=== PATIENT | male | born 1955 | race Caucasian/White ===

== ENCOUNTER 2016-10-22 22:13 | Inpatient (IN) | payer MEDICARE ==
[2016-10-22] MEDS ORDERED: HYDROmorphone 1 MG/ML 1 ML SYRINGE IVP STA (22:53)
[2016-10-22] MEDS ORDERED: ONDANSETRON 4 MG/2 ML VIAL IVP STA (22:53)
[2016-10-22 23:23] LABS: Anisocytosis Slight; Basophils % (A) 1 %; CH 21.6; Eosinophils # (A) 0.4 k/uL (0-0.7); Eosinophils % (A) 6 %; HCT 34.8 % (39.0-53.0); HDW 3.43; HGB 10.7 gm/dL (13.0-17.5); Hypochromasia Marked; Luc # (Auto) 0.16; Luc % (Auto) 3; Lymphocytes # (A) 1.2 k/uL (1.0-4.8); Lymphocytes % (A) 20 %; MCH 21.6 pg (25.0-35.0); MCHC 30.8 g/dL (31.0-37.0); Mean Platelet Volume 7.1; Microcytosis Marked; Monocytes # (A) 0.4 k/uL (0-1.0); Monocytes % (A) 7 %; Neutrophils % (A) 64 %; Poikilocytosis Slight; RBC 4.98 m/uL (4.30-5.90); WBC 6.2 k/uL (3.8-10.6); WBC (Perox) 6.36
[2016-10-22 23:31] LABS: Calcium 9.1 mg/dL (8.4-10.2); Total Bilirubin 0.6 mg/dL (0.2-1.3)
[2016-10-22 23:48] LABS: Manual Review Performed; Ovalocytes Present; Target Cells Present
--- NOTE | 2016-10-22 23:48 | CT ---
History: Reason: abdominal pain Exam: CT ABDOMEN + PELVIS Without Contrast axial noncontrast images from the lung bases through the ischial tuberosities with multiplanar reformatted images Technique more: CTDI is 26.60 mGy and DLP is 1437.30 mGy-cm Technique more: This CT exam was performed using one or more of the following dose reduction techniques: automated exposure control, adjustment of the mA and/or kV according to patient size, and/or use of iterative reconstruction technique. Comparison: None available FINDINGS: Basilar atelectasis. Coronary calcifications and/or stents partially imaged. No evidence of pericardial or pleural effusion. Beam hardening artifact relating to partially imaged right hip replacement. The liver, adrenal glands, and abdominal aorta appear within limits on noncontrast imaging. Splenomegaly 17.4 cm. The gallbladder is contracted in appearance and not well evaluated. No bowel dilation or free air. Normal caliber appendix without secondary signs. The bladder is contracted in appearance and partially obscured by spray artifact. No definite evidence of free fluid seen. The prostate is not well seen. Bilateral renal cysts with renal atrophy and a couple of indeterminant renal areas. Bilateral nonacute L5 spondylolysis with grade 1 anterolisthesis and spondylosis/discogenic change. Multilevel Schmorl node deformities and spondylosis/discogenic change. IMPRESSION: The gallbladder is contracted in appearance and not well evaluated. Bilateral renal cysts with renal atrophy and a couple of indeterminant renal areas which may represent complex cysts or solid lesion not excluded. May consider follow-up with nonemergent multiphasic renal CT or MRI. Splenomegaly 17.4 cm. Basilar atelectasis. Coronary calcifications and/or stents partially imaged.
[2016-10-22 23:52] LABS: Potassium 7.3 mmol/L (3.5-5.1)
[2016-10-22] MEDS ORDERED: SODIUM POLYSTYRENE SULFONATE 15 GM/60 ML BOTTLE PO STA (23:57)
[2016-10-22] MEDS ORDERED: DEXTROSE 50%-WATER 50 ML SYRINGE IVP STA (23:57)
[2016-10-22] MEDS ORDERED: SODIUM BICARB 8.4% 50 ML SYR (1 MEQ/ML) IV STA (23:57)
[2016-10-22] MEDS ORDERED: CALCIUM GLUCONATE 1,000 MG in SODIUM CHLORIDE 0.9% 100 ML IVPB ONE (23:57)
[2016-10-22] MEDS ORDERED: INSULIN REGULAR 100 UNIT/ML VIAL IV STA (23:57)
[2016-10-23] MEDS ORDERED: NALOXONE 0.4 MG/ML 1 ML VIAL IV PRN (00:32)
[2016-10-23] MEDS ORDERED: HYDROmorphone 1 MG/ML 1 ML SYRINGE IV PRN (00:32)
[2016-10-23] MEDS ORDERED: ONDANSETRON 4 MG/2 ML VIAL IVP PRN (00:32)
[2016-10-23] MEDS ORDERED: ACETAMINOPHEN TAB 325 MG TAB PO PRN (00:32)
--- NOTE | 2016-10-23 00:32 | ED ---
Abdominal Pain HPI - General Chief Complaint: Abdominal Pain Stated Complaint: Abd Pain Time Seen by Provider: 10/22/16 22:26 Source: patient Mode of arrival: wheelchair Limitations: no limitations - History of Present Illness Initial Comments: This patient is a 61-year-old man who presents to be evaluated for abdominal pain that started coming on tonight after he had eaten dinner sometime around 6. The patient indicates the periumbilical area. He states the pain is cramping, constant, moderately severe. He has not noted any worsening or relieving factors. Pain is been coming by some nausea, but not any other symptoms. He has not noted any change in bowel movements though perhaps slightly smaller than usual. The patient has not noted any change in urination but states that he only urinates a small amount every day due to the renal failure. The patient had his last dialysis on Sunday and it was a normal session. He is due to have dialysis tomorrow morning. MD Complaint: abdominal pain -: hour(s) Location: periumbilical Radiation: none Migration to: no migration Severity: moderate Quality: cramping Consistency: constant Improves With: nothing Worsens With: nothing Associated Symptoms: nausea - Related Data Home Medications Medication Instructions Recorded Confirmed Aspirin [Adult Low Dose Aspirin EC] 81 mg PO DAILY 10/23/16 10/23/16 Atorvastatin [Lipitor] 10 mg PO HS 10/23/16 10/23/16 Calcium Acetate [Calcium Acetate] 667 mg PO DIRECTED 10/23/16 10/23/16 Ergocalciferol (Vitamin D2) 1.25 mg PO DIRECTED 10/23/16 10/23/16 [Vitamin D2] Famotidine [Pepcid] 20 mg PO DAILY 10/23/16 10/23/16 Furosemide [Furosemide] 40 mg PO BID 10/23/16 10/23/16 Hydrocodone/Acetaminophen 1 tab PO BID PRN 10/23/16 10/23/16 [Hydrocodon-Acetaminophn 10-325] Insulin Detemir [Levemir Flextouch] 15 unit SQ HS 10/23/16 10/23/16 Insulin Detemir [Levemir Flextouch] 20 unit SQ AC-BRKFST 10/23/16 10/23/16 Levothyroxine Sodium [Synthroid] 50 mcg PO BID 10/23/16 10/23/16 Levothyroxine Sodium [Synthroid] 300 mcg PO DAILY 10/23/16 10/23/16 Metoprolol Tartrate [Metoprolol 50 mg PO BID 10/23/16 10/23/16 Tartrate] Sodium Polystyrene Sulfonate [SPS] 30 gm PO DIRECTED 10/23/16 10/23/16 hydrALAZINE HCL 50 mg PO Q8H 10/23/16 10/23/16 Allergies Allergy/AdvReac Type Severity Reaction Status Date / Time No Known Allergies Allergy Verified 10/22/16 22:22 Review of Systems ROS Statement: Those systems with pertinent positive or pertinent negative responses have been documented in the HPI. ROS Other: All systems not noted in ROS Statement are negative. Constitutional: Denies: fever, chills Respiratory: Denies: cough, dyspnea Cardiovascular: Denies: chest pain, palpitations, edema, syncope Gastrointestinal: Reports: abdominal pain, nausea. Denies: vomiting, diarrhea, melena, hematochezia Genitourinary: Reports: as per HPI. Denies: testicular pain, testicular mass Musculoskeletal: Denies: back pain Skin: Denies: rash Neurological: Denies: headache, weakness, numbness Past Medical History Past Medical History: Heart Failure, Diabetes Mellitus, Hyperlipidemia, Hypertension, Renal Disease Additional Past Medical History / Comment(s): dailysis MWFr History of Any Multi-Drug Resistant Organisms: None Reported Past Surgical History: Heart Catheterization With Stent, Orthopedic Surgery Additional Past Surgical History / Comment(s): left ankle, right hip rx, plate in right knee, last heart cath 2008, left arm graph for dialysis Past Psychological History: No Psychological Hx Reported Smoking Status: Former smoker Past Alcohol Use History: None Reported Past Drug Use History: None Reported General Exam Limitations: no limitations General appearance: alert, in no apparent distress Head exam: Present: atraumatic, normocephalic Eye exam: Present: normal appearance. Absent: scleral icterus, conjunctival injection ENT exam: Present: normal oropharynx Neck exam: Present: normal inspection Respiratory exam: Present: normal lung sounds bilaterally. Absent: respiratory distress, wheezes, rales, rhonchi, stridor Cardiovascular Exam: Present: regular rate, normal rhythm, normal heart sounds. Absent: systolic murmur, diastolic murmur, rubs, gallop GI/Abdominal exam: Present: soft, tenderness (Mild tenderness diffusely without guarding or rebound), normal bowel sounds. Absent: distended, guarding, rebound , rigid, mass, pulsatile mass, hernia Extremities exam: Present: normal inspection, normal capillary refill. Absent: pedal edema, calf tenderness Back exam: Present: normal inspection. Absent: CVA tenderness (R), CVA tenderness (L) Neurological exam: Present: alert, normal gait Skin exam: Present: warm, dry, intact, normal color. Absent: rash Course Vital Signs 10/22/16 10/23/16 10/23/16 22:16 00:42 01:40 Temperature 97.4 F L 98.3 F Pulse Rate 80 82 Pulse Rate [ Bilateral Dorsalis Pedis] Pulse Rate [ Bilateral Radial] Respiratory 18 18 20 Rate Blood Pressure 164/75 151/82 Blood Pressure 142/73 [Right Arm] O2 Sat by Pulse 93 L 98 Oximetry 10/23/16 10/23/16 03:09 04:00 Temperature 98.0 F 98.7 F Pulse Rate 72 Pulse Rate [ 73 Bilateral Dorsalis Pedis] Pulse Rate [ 73 Bilateral Radial] Respiratory 18 18 Rate Blood Pressure 138/71 Blood Pressure 140/72 [Right Arm] O2 Sat by Pulse 97 98 Oximetry Medical Decision Making - Medical Decision Making Patient is a 61-year-old man who presents to be evaluated for abdominal pain. Patient is found to have hyperkalemia. Case is discussed with Dr. Horton, covering for his physician. Patient will be admitted and have dialysis. Patient is given the medications for hyperkalemia. His abdominal symptoms have improved in the emergency room. - Lab Data Result diagrams: 10/22/16 23:00 10/23/16 02:30 Lab Results 10/22/16 10/22/16 10/22/16 Range/Units 23:00 23:00 23:00 WBC 6.2 (3.8-10.6) k/uL RBC 4.98 (4.30-5.90) m/uL Hgb 10.7 L (13.0-17.5) gm/dL Hct 34.8 L (39.0-53.0) % MCV 70.0 L (80.0-100.0) fL MCH 21.6 L (25.0-35.0) pg MCHC 30.8 L (31.0-37.0) g/dL RDW 19.0 H (11.5-15.5) % Plt Count 89 L (150-450) k/uL Neutrophils % 64 % Lymphocytes % 20 % Monocytes % 7 % Eosinophils % 6 % Basophils % 1 % Neutrophils # 4.0 (1.3-7.7) k/uL Lymphocytes # 1.2 (1.0-4.8) k/uL Monocytes # 0.4 (0-1.0) k/uL Eosinophils # 0.4 (0-0.7) k/uL Basophils # 0.0 (0-0.2) k/uL Manual Slide Review Performed Hypochromasia Marked Poikilocytosis Slight Poikilocytosis (manual Present Anisocytosis Slight Anisocytosis (manual) Present Microcytosis Marked Target Cells Present Ovalocytes Present Sodium 133 L (137-145) mmol/L Potassium 7.3 H* (3.5-5.1) mmol/L Chloride 92 L (98-107) mmol/L Carbon Dioxide 26 (22-30) mmol/L Anion Gap 15 mmol/L BUN 77 H (9-20) mg/dL Creatinine 11.10 H* (0.66-1.25) mg/dL Est GFR (MDRD) Af Amer 6 (>60 ml/min/1.73 sqM) Est GFR (MDRD) Non-Af 5 (>60 ml/min/1.73 sqM) Glucose 210 H (74-99) mg/dL Plasma Lactic Acid Yonny 0.8 (0.7-2.0) mmol/L Calcium 9.1 (8.4-10.2) mg/dL Total Bilirubin 0.6 (0.2-1.3) mg/dL AST 16 L (17-59) U/L ALT 25 (21-72) U/L Alkaline Phosphatase 168 H (38-126) U/L Total Protein 6.0 L (6.3-8.2) g/dL Albumin 4.0 (3.5-5.0) g/dL Amylase 43 (30-110) U/L Lipase 53 (23-300) U/L - EKG Data -: EKG Interpreted by Pa EKG shows normal: sinus rhythm, axis (Left axis deviation), intervals (The QRS duration is slightly prolonged at 138 ms), QRS complexes (There is a nonspecific intraventricular conduction delay) Rate: normal (Rate 79 bpm) Interpretation: other (The patient's T waves have a borderline appearance for peaking) Critical Care Time Critical Care Time: Yes (35 minutes) Disposition Clinical Impression: Abdominal pain, Hyperkalemia Disposition: ADMITTED IP TO THIS HOSP Condition: Fair
[2016-10-23 01:09] LABS: Appearance,Urine Clear (Clear); Bilirubin,Urine Negative (Negative); Glucose,Urine (UA) 3+ (Negative); Ketones,Urine Negative (Negative); Leukocyte Esterase,Urine Negative (Negative); Nitrite,Urine Negative (Negative); PH, Urine 8.5 (5.0-8.0); Particle Count 140; Protein,Urine 1+ (Negative); RBC,Urine <1 /hpf (0-5); Specific Gravity,Urine 1.006 (1.001-1.035); UA Billing (MACRO vs. MICRO) MICRO; Urobilinogen,Urine <2.0 mg/dL (<2.0); WBC,Urine <1 /hpf (0-5)
[2016-10-23 03:27] LABS: Glucose,Whole Blood 193 mg/dL (75-99)
[2016-10-23 04:07] VITALS: BMI 41.3
[2016-10-23 05:01] LABS: Anisocytosis Slight; Basophils % (A) 1 %; CH 21.4; CHCM 30.6; Eosinophils # (A) 0.3 k/uL (0-0.7); Eosinophils % (A) 5 %; HCT 32.1 % (39.0-53.0); HDW 3.46; HGB 9.7 gm/dL (13.0-17.5); Hypochromasia Marked; Luc # (Auto) 0.17; Luc % (Auto) 4; Lymphocytes # (A) 1.1 k/uL (1.0-4.8); Lymphocytes % (A) 23 %; MCH 21.2 pg (25.0-35.0); MCHC 30.1 g/dL (31.0-37.0); MCV 70.4 fL (80.0-100.0); Mean Platelet Volume 6.9; Microcytosis Marked; Monocytes # (A) 0.3 k/uL (0-1.0); Monocytes % (A) 7 %; Neutrophils # (A) 2.8 k/uL (1.3-7.7); Neutrophils % (A) 60 %; Poikilocytosis Slight; RBC 4.56 m/uL (4.30-5.90); RDW 18.9 % (11.5-15.5); WBC 4.7 k/uL (3.8-10.6); WBC (Perox) 4.83
[2016-10-23 05:10] LABS: INR 1.2 (<1.1); Prothrombin Time 12.1 sec (9.0-12.0)
[2016-10-23 05:38] LABS: Calcium 8.7 mg/dL (8.4-10.2); Magnesium 1.8 mg/dL (1.6-2.3); Phosphorous 5.6 mg/dL (2.5-4.5); Total Bilirubin 0.8 mg/dL (0.2-1.3); Total Protein 5.6 g/dL (6.3-8.2)
[2016-10-23 05:50] LABS: Potassium 6.5 mmol/L (3.5-5.1)
[2016-10-23 07:24] LABS: Glucose,Whole Blood 240 mg/dL (75-99)
[2016-10-23] MEDS: INSULIN LISPRO (humaLOG) 300 UNIT/3 ML VIAL SQ SCH ×2 (08:30→12:17)
[2016-10-23 08:38] VITALS: TEMP 97.7
[2016-10-23] MEDS ORDERED: FAMOTIDINE 20 MG TAB PO SCH (09:00)
[2016-10-23] MEDS ORDERED: HYDROcodone/APAP 10-325MG 1 EACH TAB PO PRN (09:54)
[2016-10-23] MEDS ORDERED: ASPIRIN 81 MG CHEW PO SCH (10:00)
[2016-10-23] MEDS ORDERED: SODIUM POLYSTYRENE SULFONATE 30 GM/120 ML BOTTLE RECTAL SCH (10:00)
[2016-10-23] MEDS ORDERED: hydrALAZINE HCL 50 MG TAB PO SCH (10:00)
--- NOTE | 2016-10-23 10:14 | P.HPIM ---
History of Present Illness H&P Date: 10/23/16 Chief Complaint: Abdominal pain This is a 61-year-old male with a known history of diabetes mellitus type 2, chronic kidney disease on hemodialysis Sunday, congestive heart failure, hypertension, hyperlipidemia, anemia of chronic kidney disease and hypothyroidism. Patient presents to emergency room with complaints of abdominal cramping throughout his abdomen. Symptoms started around 6:00 last night. Patient reports that he went out to eat for breakfast had spinach omelette with hashbrowns. He had been doing well. And later in the evening 's his stomach cramping started. Patient also had about 4 stools which were diarrhea-like. No blood reported. There are brownish greenish in color. He did have some chills. Denies any fever. Denies any nausea or vomiting. Denies any other sick contacts. It has not been on antibiotics recently. Patient is computed tomography scan of the abdomen and pelvis showing gallbladder is contracted in appearance and not well evaluated. I lateral renal cysts with renal atrophy and a couple of in determinant renal areas which may represent complex cysts or solid lesion. Splenomegaly measuring 17.4 cm. Basilar atelectasis and coronary calcifications. Patient was found to have a potassium of 7.3 on admission. He does report eating potatoes during the day as well. Patient was given medications to adjust the potassium. Potassium is now at 6.5 any scheduled for hemodialysis today. Patient reports that he has been taking his medications and going to scheduled hemodialysis. Last hemodialysis was on Sunday. Patient denies any chest pain or shortness of breath. Denies a nausea vomiting. Denies any difficulty urinating. Hemoglobin is 9.7. He does get Procrit injections weekly for his anemia of chronic disease. Review of Systems Please refer to HPI otherwise unremarkable Past Medical History Past Medical History: Heart Failure, Diabetes Mellitus, Hyperlipidemia, Hypertension, Renal Disease Additional Past Medical History / Comment(s): dailysis MWFr History of Any Multi-Drug Resistant Organisms: None Reported Past Surgical History: Heart Catheterization With Stent, Orthopedic Surgery Additional Past Surgical History / Comment(s): left ankle, right hip rx, plate in right knee, last heart cath 2008, left arm graph for dialysis Date of Last Stent Placement:: 2008 Past Psychological History: No Psychological Hx Reported Smoking Status: Former smoker Past Alcohol Use History: None Reported Past Drug Use History: None Reported Medications and Allergies Home Medications Medication Instructions Recorded Confirmed Type Aspirin [Adult Low Dose Aspirin EC] 81 mg PO DAILY 10/23/16 10/23/16 History Atorvastatin [Lipitor] 10 mg PO HS 10/23/16 10/23/16 History Calcium Acetate [Calcium Acetate] 2,668 mg PO TID 10/23/16 10/23/16 History Ergocalciferol (Vitamin D2) 50,000 unit PO ESPARZA 10/23/16 10/23/16 History [Vitamin D2] Famotidine [Pepcid] 20 mg PO DAILY 10/23/16 10/23/16 History Furosemide [Furosemide] 40 mg PO BID 10/23/16 10/23/16 History Hydrocodone/Acetaminophen 1 tab PO BID PRN 10/23/16 10/23/16 History [Hydrocodon-Acetaminophn 10-325] Insulin Detemir [Levemir Flextouch] 15 unit SQ HS 10/23/16 10/23/16 History Insulin Detemir [Levemir Flextouch] 20 unit SQ AC-BRKFST 10/23/16 10/23/16 History Levothyroxine Sodium [Synthroid] 50 mcg PO BID 10/23/16 10/23/16 History Levothyroxine Sodium [Synthroid] 300 mcg PO DAILY 10/23/16 10/23/16 History Metoprolol Tartrate [Metoprolol 50 mg PO BID 10/23/16 10/23/16 History Tartrate] Sodium Polystyrene Sulfonate [SPS] 30 gm PO MOTH 10/23/16 10/23/16 History hydrALAZINE HCL 50 mg PO Q8H 10/23/16 10/23/16 History Allergies Allergy/AdvReac Type Severity Reaction Status Date / Time No Known Allergies Allergy Verified 10/23/16 07:53 Physical Exam Vitals: Vital Signs Temp Pulse Pulse Pulse Pulse Resp BP 10/23/16 08:00 97.7 F 71 16 10/23/16 04:00 98.7 F 73 73 18 10/23/16 03:09 98.0 F 72 18 138/71 10/23/16 01:40 98.3 F 20 10/23/16 00:42 82 18 151/82 BP Pulse Ox 10/23/16 08:00 161/82 95 10/23/16 04:00 140/72 98 10/23/16 03:09 97 10/23/16 01:40 142/73 10/23/16 00:42 98 Intake and Output 10/22/16 10/23/16 10/23/16 22:59 06:59 14:59 Intake Total 300 Output Total 50 50 Balance 250 -50 Intake: Intake, IV Titration 300 Amount Calcium Gluconate 1,000 300 mg In Sodium Chloride 0.9 % 100 ml @ 100 mls/hr IVPB ONCE ONE Rx#: [id number] Output: Urine 50 50 Other: Voiding Method Urinal Urinal # Emeses 0 Weight 119.8 kg Head normocephalic Neck supple Lungs clear to auscultation bilaterally no wheezing or crackles Heart regular rate and rhythm S1-S2, no rub or gallop Abdomen is soft nontender nondistended positive bowel sounds no hepatosplenomegaly Extremities no edema. Right great toe posterior aspect a large callus present. There is an open area that is now scabbed over and dry. No evidence of any pus or cellulitis. Some tenderness with palpation of the area. About 1 centimeter in size Neuro alert and orientated to 3 Results CBC & Chem 7: 10/23/16 04:22 10/23/16 04:22 Labs: Abnormal Lab Results - Last 24 Hours (Table) 10/23/16 10/23/16 10/23/16 Range/Units 00:44 02:30 03:25 Hgb (13.0-17.5) gm/dL Hct (39.0-53.0) % MCV (80.0-100.0) fL MCH (25.0-35.0) pg MCHC (31.0-37.0) g/dL RDW (11.5-15.5) % Plt Count (150-450) k/uL PT (9.0-12.0) sec Sodium (137-145) mmol/L Potassium 7.1 H* (3.5-5.1) mmol/L Chloride (98-107) mmol/L BUN (9-20) mg/dL Creatinine (0.66-1.25) mg/dL Glucose (74-99) mg/dL POC Glucose (mg/dL) 193 H (75-99) mg/dL Phosphorus (2.5-4.5) mg/dL AST (17-59) U/L Alkaline Phosphatase (38-126) U/L Total Protein (6.3-8.2) g/dL Albumin (3.5-5.0) g/dL Urine pH 8.5 H (5.0-8.0) Urine Protein 1+ H (Negative) Urine Glucose (UA) 3+ H (Negative) 10/23/16 10/23/16 10/23/16 Range/Units 04:22 04:22 04:22 Hgb 9.7 L (13.0-17.5) gm/dL Hct 32.1 L (39.0-53.0) % MCV 70.4 L (80.0-100.0) fL MCH 21.2 L (25.0-35.0) pg MCHC 30.1 L (31.0-37.0) g/dL RDW 18.9 H (11.5-15.5) % Plt Count 79 L (150-450) k/uL PT 12.1 H (9.0-12.0) sec Sodium 135 L (137-145) mmol/L Potassium 6.5 H* (3.5-5.1) mmol/L Chloride 94 L (98-107) mmol/L BUN 84 H* (9-20) mg/dL Creatinine 11.14 H* (0.66-1.25) mg/dL Glucose 196 H (74-99) mg/dL POC Glucose (mg/dL) (75-99) mg/dL Phosphorus 5.6 H (2.5-4.5) mg/dL AST 12 L (17-59) U/L Alkaline Phosphatase 134 H (38-126) U/L Total Protein 5.6 L (6.3-8.2) g/dL Albumin 3.4 L (3.5-5.0) g/dL Urine pH (5.0-8.0) Urine Protein (Negative) Urine Glucose (UA) (Negative) 10/23/16 Range/Units 07:22 Hgb (13.0-17.5) gm/dL Hct (39.0-53.0) % MCV (80.0-100.0) fL MCH (25.0-35.0) pg MCHC (31.0-37.0) g/dL RDW (11.5-15.5) % Plt Count (150-450) k/uL PT (9.0-12.0) sec Sodium (137-145) mmol/L Potassium (3.5-5.1) mmol/L Chloride (98-107) mmol/L BUN (9-20) mg/dL Creatinine (0.66-1.25) mg/dL Glucose (74-99) mg/dL POC Glucose (mg/dL) 240 H (75-99) mg/dL Phosphorus (2.5-4.5) mg/dL AST (17-59) U/L Alkaline Phosphatase (38-126) U/L Total Protein (6.3-8.2) g/dL Albumin (3.5-5.0) g/dL Urine pH (5.0-8.0) Urine Protein (Negative) Urine Glucose (UA) (Negative) Thrombosis Risk Factor Assmnt - Choose All That Apply Any of the Below Risk Factors Present?: Yes Each Factor Represents 1 point: Medical pt on bed rest Other Risk Factors: Yes Each Risk Factor Represents 2 Points: Age 61-74 years, Patient confined to bed Other congenital or acquired thrombophilia - If yes, enter type in comment: No Thrombosis Risk Factor Assessment Total Risk Factor Score: 5 Thrombosis Risk Factor Assessment Level: High Risk Assessment and Plan Plan: 1. Abdominal pain with diarrhea: Exact etiology unclear. Possible secondary to a viral gastroenteritis versus food poisoning. Computed tomography scan of the abdomen and pelvis did reveal contracted gallbladder and renal cysts. Check stool for C. diff. Continue with Zofran if needed. Continue Pepcid 2. Hyperkalemia: Patient's been given Kayexalate, calcium gluconate, insulin help correct the hyperkalemia. As well as he is receiving hemodialysis this morning. Patient did eat potatoes 2 times yesterday which may contribute to some of his hyperkalemia. Nephrology has been consulted. EKG shows a normal sinus rhythm and nonspecific intraventricular block. Continue telemetry monitoring. Patient currently in ICU as a selective overflow 3. Chronic kidney disease, stage 5. Hemodialysis dependent. Patient receiving hemodialysis this morning. Nephrology has been consulted. 4. Hyperphosphatemia: Resume patient's PhosLo. Continue dialysis. 5. Diabetes mellitus type 2: Resume patient's insulin. Continue sliding scale coverage. Hemoglobin A1c pending. 6. Essential hypertension: Resume blood pressure medications. Metoprolol and hydralazine 7. Anemia of chronic kidney disease: Hemoglobin 9.7. On Procrit injections weekly. Last colonoscopy 1 year ago which was normal 8. Hyperlipidemia: Resume statin 9. Hypothyroidism resume Synthroid 10. Right great toe callus and ulcer. Area is scabbed over. No evidence of drainage or infection. 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 11. Thrombocytopenia: Platelets are 79. CAT scan showing enlarged spleen. Continue to monitor. GI prophylaxis Pepcid and DVT prophylaxis SCDs Time with Patient: Greater than 30 (Greater than 50% of the total time spent in counseling and coordination of care.I performed an examination of the patient and discussed their management with the physician [employer]. I have reviewed the Physician [employer]'s notes and agree with the documented findings and plan of care)
[2016-10-23 11:07] VITALS: BP 127/70; PULSE 83; RESP 19
[2016-10-23 12:12] LABS: Glucose,Whole Blood 132 mg/dL (75-99)
[2016-10-23 12:16] LABS: Hemoglobin A1C 9.5 % (4.2-6.1)
[2016-10-23] MEDS ORDERED: CALCIUM ACETATE 667 MG CAP PO SCH (12:30)
[2016-10-23] MEDS ORDERED: INSULIN LISPRO (humaLOG) 300 UNIT/3 ML VIAL SQ SCH (12:30)
--- NOTE | 2016-10-23 13:04 | P.DS ---
Providers Date of admission: 10/23/16 00:36 Expected date of discharge: 10/23/16 Attending physician: Shaheen Forte Consults: Dr. Langford Primary care physician: Jazmin Castaneda [facility] Course: Discharge diagnosis 1. Abdominal pain with diarrhea: Exact etiology unclear. Possible secondary to gastroenteritis from food poisoning. Computed tomography scan of the abdomen and pelvis did reveal contracted gallbladder and renal cysts. 2. Hyperkalemia: Patient's been given Kayexalate, calcium gluconate, insulin help correct the hyperkalemia. As well as he is receiving hemodialysis this morning. Patient did eat potatoes 2 times yesterday which may contribute to some of his hyperkalemia. Nephrology has been consulted. EKG shows a normal sinus rhythm and nonspecific intraventricular block. Continue telemetry monitoring. Patient currently in ICU as a selective overflow 3. Chronic kidney disease, stage 5. Hemodialysis dependent. Patient receiving hemodialysis this morning. Nephrology has been consulted. 4. Hyperphosphatemia: Resume patient's PhosLo. Continue dialysis. 5. Diabetes mellitus type 2: Resume patient's insulin. Continue sliding scale coverage. Hemoglobin A1c pending. 6. Essential hypertension: Resume blood pressure medications. Metoprolol and hydralazine 7. Anemia of chronic kidney disease: Hemoglobin 9.7. On Procrit injections weekly. Last colonoscopy 1 year ago which was normal 8. Hyperlipidemia: Resume statin 9. Hypothyroidism resume Synthroid 10. Right great toe callus and ulcer. Area is scabbed over. No evidence of drainage or infection. Patient is to follow up with his braille proofreader tomorrow. 11. Thrombocytopenia: Platelets are 79. CAT scan showing enlarged spleen. Repeat CBC on Sunday. We'll have patient follow-up with hematology in the outpatient setting in 2 weeks Hospital course This is a 61-year-old male with a known history of diabetes mellitus type 2, chronic kidney disease on hemodialysis Sunday, congestive heart failure, hypertension, hyperlipidemia, anemia of chronic kidney disease and hypothyroidism. Patient presents to emergency room with complaints of abdominal cramping throughout his abdomen. Symptoms started around 6:00 last night. Patient reports that he went out to eat for breakfast had spinach omelette with hashbrowns. He had been doing well. And later in the evening 's his stomach cramping started. Patient also had about 4 stools which were diarrhea-like. No blood reported. There are brownish greenish in color. He did have some chills. Denies any fever. Denies any nausea or vomiting. Denies any other sick contacts. It has not been on antibiotics recently. Patient is computed tomography scan of the abdomen and pelvis showing gallbladder is contracted in appearance and not well evaluated. I lateral renal cysts with renal atrophy and a couple of in determinant renal areas which may represent complex cysts or solid lesion. Splenomegaly measuring 17.4 cm. Basilar atelectasis and coronary calcifications. Patient was found to have a potassium of 7.3 on admission. He does report eating potatoes during the day as well. Patient was given medications to adjust the potassium. Potassium is now at 6.5 any scheduled for hemodialysis today. Patient reports that he has been taking his medications and going to scheduled hemodialysis. Last hemodialysis was on Sunday. Likely patient's symptoms were possibly due to food poisoning. His abdominal pain and diarrhea have now resolved. Potassium will be corrected with dialysis. Recommend repeating a CBC and BMP on Sunday with dialysis. Patient was seen by nephrology during this admission. He received dialysis this morning. He has a right great toe callus in which she will be following up with the braille proofreader tomorrow. Patient is medically stable for discharge. Also note patient was noted have some thrombocytopenia with a platelet count of 79. His CAT scan is showing splenomegaly with a measuring 17.4 cm. We'll patient evaluated by hematology in the outpatient setting. Patient is eager for discharge to follow up with his braille proofreader tomorrow. Patient is stable for discharge. Please refer to chart for any further details. Patient Condition at Discharge: Stable Plan - Discharge Summary Discharge Medication List Aspirin [Adult Low Dose Aspirin EC] 81 mg PO DAILY 10/23/16 [History] Atorvastatin [Lipitor] 10 mg PO HS 10/23/16 [History] Calcium Acetate 2,668 mg PO TID 10/23/16 [History] Ergocalciferol (Vitamin D2) [Vitamin D2] 50,000 unit PO ESPARZA 10/23/16 [History] Famotidine [Pepcid] 20 mg PO DAILY 10/23/16 [History] Furosemide 40 mg PO BID 10/23/16 [History] Hydrocodone/Acetaminophen [Hydrocodon-Acetaminophn 10-325] 1 tab PO BID PRN 05/01 [History] Insulin Detemir [Levemir Flextouch] 15 unit SQ HS 10/23/16 [History] Insulin Detemir [Levemir Flextouch] 20 unit SQ AC-BRKFST 10/23/16 [History] Levothyroxine Sodium [Synthroid] 50 mcg PO BID 10/23/16 [History] Levothyroxine Sodium [Synthroid] 300 mcg PO DAILY 10/23/16 [History] Metoprolol Tartrate 50 mg PO BID 10/23/16 [History] Sodium Polystyrene Sulfonate [SPS] 30 gm PO MOTH 10/23/16 [History] hydrALAZINE HCL 50 mg PO Q8H 10/23/16 [History] Follow up Appointment(s)/Referral(s): Jazmin Castaneda MD [Primary Care Provider] - 1 Week Juan Clayton MD [STAFF PHYSICIAN] - 2 Weeks Activity/Diet/Wound Care/Special Instructions: Diet: cardiac, renal , diabetic Activity: as tolerated check CBC, BMP on sunday Discharge Disposition: HOME SELF-CARE
--- NOTE | 2016-10-23 15:10 | CONS ---
DATE OF CONSULTATION: REASON FOR CONSULTATION: End stage renal disease. HISTORY OF PRESENT ILLNESS: Patient is a 61-year-old male with a history of end-stage renal disease on hemodialysis on a Sunday, Sunday, Sunday schedule. He was admitted to the hospital with complaints of not feeling well. He had some abdominal pain and stated he had some diarrhea as well. Prior to admission he had eaten outside at a restaurant prior to these symptoms. The patient normally does have issues with hyperkalemia as outpatient. He was admitted with a potassium of 7.3. CAT scan of the abdomen showed no significant findings except for basilar atelectasis, coronary calcifications and splenomegaly was noted. Currently, patient is being dialyzed. He states he is feeling better. He denies any pain in his abdomen and denies any chest pains or shortness of breath. PAST MEDICAL HISTORY: End-stage renal disease, hypertension, type 2 diabetes, coronary artery disease, osteoarthritis. PAST SURGICAL HISTORY: 1. Cardiac catheterization. 2. AV fistula. 3. Ankle and hip surgery. 4. Knee surgery. SOCIAL HISTORY: The patient is an ex-smoker. No history of drug abuse or alcohol abuse. Medications at home included: 1. Lipitor. 2. Aspirin. 3. Phoslo. 4. Vitamin D2. 5. Lasix. 6. Pepcid. 7. Synthroid. 8. Insulin. 9. Metoprolol. 10. Kayexalate. ALLERGIES: None. On examination, the patient is comfortable, awake, alert, oriented x3. He is not in any acute distress. Blood pressure is 127/70, heart rate 71 per minute. He is afebrile. Examination of the heart S1 and S2. Examination of the lungs: Bilateral breath sounds are heard. Decreased breath sounds in bases. ABDOMEN: Soft, obese, nontender. Examination of lower extremities shows chronic skin changes. No significant edema is noted. Labs show sodium of 135, potassium 6.5, hemoglobin 9.7 g/dL. ASSESSMENT: 1. End-stage renal disease on hemodialysis on a Sunday, Sunday, Sunday schedule. Currently patient is being dialyzed. 2. The hyperkalemia at the time of admission expect improvement with dialysis. 3. Fluid overload, expect improvement post dialysis. 4. Gastroenteritis seems to have improved, possibly some underlying food poisoning. 5. Anemia of chronic disease. 6. Chronic kidney disease bone mineral disorder. PLAN: Hemodialysis today. Patient can be discharged post dialysis. Will follow up as outpatient on Sunday. He is advised to take his Kayexalate regularly. Thank you for this consultation.
[2016-10-23] MEDS ORDERED: FUROSEMIDE 40 MG TAB PO SCH (16:00)
[2016-10-23] MEDS ORDERED: LEVOTHYROXINE 50 MCG TAB PO SCH (21:00)
[2016-10-23] MEDS ORDERED: HEPARIN SODIUM,PORCINE 5,000 UNIT/ML 1 ML VIAL SQ SCH (21:00)
[2016-10-23] MEDS ORDERED: METOPROLOL TARTRATE 50 MG TAB PO SCH (21:00)
[2016-10-23] MEDS ORDERED: ATORVASTATIN 10 MG TAB PO SCH (21:00)
[2016-10-23] MEDS ORDERED: INSULIN DETEMIR 100 UNIT/ML 10 ML VIAL SQ SCH (21:00)
[2016-10-24] MEDS ORDERED: LEVOTHYROXINE 100 MCG TAB PO SCH (06:30)
[2016-10-24] MEDS ORDERED: INSULIN DETEMIR 100 UNIT/ML 10 ML VIAL SQ SCH (07:30)
[2016-10-24] MEDS ORDERED: FAMOTIDINE 20 MG TAB PO SCH (09:00)
[2016-10-29] MEDS ORDERED: ERGOCALCIFEROL 50,000 UNIT CAP PO SCH (09:54)
== END 2016-10-23 14:25 | disposition home or self-care (01) | DRG 641 ==
LOC: EC 22:13 → 6SEL 10-23 00:36 → 6ICU 10-23 03:07
PROVIDERS: ADMIT Internal Medicine; ATTEND Internal Medicine
PROC: 5A1D00Z (ICD-10-PCS; principal; 2016-10-23)
DX: E87.5 Hyperkalemia (principal); I13.2 Hypertensive heart and chronic kidney disease with heart failure and with stage 5 chronic kidney disease, or end stage renal disease; N18.5 Chronic kidney disease, stage 5; J98.11 Atelectasis; E11.22 Type 2 diabetes mellitus with diabetic chronic kidney disease; D69.6 Thrombocytopenia, unspecified; E83.39 Other disorders of phosphorus metabolism; A05.9 Bacterial foodborne intoxication, unspecified; E87.70 Fluid overload, unspecified; N28.1 Cyst of kidney, acquired; R16.1 Splenomegaly, not elsewhere classified; D63.1 Anemia in chronic kidney disease; E03.9 Hypothyroidism, unspecified; E78.5 Hyperlipidemia, unspecified; I25.10 Atherosclerotic heart disease of native coronary artery without angina pectoris; I45.4 Nonspecific intraventricular block; I50.9 Heart failure, unspecified; M19.90 Unspecified osteoarthritis, unspecified site; Z99.2 Dependence on renal dialysis; Z79.4 Long term (current) use of insulin; Z79.82 Long term (current) use of aspirin; Z79.899 Other long term (current) drug therapy; Z87.891 Personal history of nicotine dependence; Z95.5 Presence of coronary angioplasty implant and graft
CPT/HCPCS: 36415; 74176; 80053; 81001; 82150; 83036; 83605; 83690; 83735; 84100; 84132; 85025; 85610; 85730; 90935; 93005; 96365; 96375; 99291

== ENCOUNTER 2016-10-23 16:23 | Inpatient (IN) | payer MEDICARE ==
[2016-10-23] MEDS ORDERED: ONDANSETRON 4 MG/2 ML VIAL IVP STA (18:30)
[2016-10-23] MEDS ORDERED: DICYCLOMINE 10 MG/ML 2 ML AMP IM STA (18:30)
[2016-10-23] MEDS ORDERED: SODIUM CHLORIDE 0.9% 1,000 ML IV STA (18:30)
--- NOTE | 2016-10-23 18:35 | ED ---
Nausea/Vomiting/Diarrhea HPI <ManuelHarsha - Last Filed: 10/23/16 19:30> - General Source: patient, RN notes reviewed Mode of arrival: ambulatory <Jaylene Andersen - Last Filed: 10/23/16 19:36> - General Chief complaint: Nausea/Vomiting/Diarrhea Stated complaint: Nausea Time Seen by Provider: 10/23/16 18:20 - History of Present Illness Initial comments: 61-year-old male presents to the emergency department with a chief complaint of nausea and vomiting. Patient states he was seen here yesterday he was admitted overnight he had dialysis went home this morning. Patient states that he started to feel better and his nausea had improved. Patient states that his abdominal pain has resolved as well as the diarrhea may continues to nausea he had an episode of vomiting 3 thought that he should be seen. Patient states that he hasn't had any fever chills with this no cough cold runny nose. Patient states he is concerned because his abdomen doesn't have pain but still has the cramping like sensation and he still has the nausea with vomiting. No one else in the house is sick. He wanted to make sure that everything was okay. Patient denies any recent fever, chills, shortness of breath, chest pain, back pain, numbness or tingling, dysuria or hematuria, constipation or diarrhea, headaches or visual changes, or any other current symptoms. (Jaylene Andersen) - Related Data Home Medications Medication Instructions Recorded Confirmed Aspirin [Adult Low Dose Aspirin EC] 81 mg PO DAILY 10/23/16 10/23/16 Atorvastatin [Lipitor] 10 mg PO HS 10/23/16 10/23/16 Calcium Acetate 2,668 mg PO TID-W/MEALS 10/23/16 10/23/16 Ergocalciferol (Vitamin D2) 50,000 unit PO ESPARZA 10/23/16 10/23/16 [Vitamin D2] Famotidine [Pepcid] 20 mg PO DAILY 10/23/16 10/23/16 Furosemide 40 mg PO BID 10/23/16 10/23/16 Hydrocodone/Acetaminophen 1 tab PO BID PRN 10/23/16 10/23/16 [Hydrocodon-Acetaminophn 10-325] Insulin Detemir [Levemir Flextouch] 15 unit SQ HS 10/23/16 10/23/16 Insulin Detemir [Levemir Flextouch] 20 unit SQ AC-BRKFST 10/23/16 10/23/16 Levothyroxine Sodium [Synthroid] 50 mcg PO BID 10/23/16 10/23/16 Levothyroxine Sodium [Synthroid] 300 mcg PO DAILY 10/23/16 10/23/16 Metoprolol Tartrate 50 mg PO BID 10/23/16 10/23/16 Sodium Polystyrene Sulfonate [SPS] 30 gm PO MOTH 10/23/16 10/23/16 hydrALAZINE HCL 50 mg PO Q8H 10/23/16 10/23/16 Allergies Allergy/AdvReac Type Severity Reaction Status Date / Time No Known Allergies Allergy Verified 10/23/16 17:03 Review of Systems ROS Other: All systems not noted in ROS Statement are negative. <Harsha Jackson - Last Filed: 10/23/16 19:30> ROS Other: All systems not noted in ROS Statement are negative. <Jaylene Andersen - Last Filed: 10/23/16 19:36> ROS Statement: Those systems with pertinent positive or pertinent negative responses have been documented in the HPI. Past Medical History Past Medical History: Heart Failure, Diabetes Mellitus, Hyperlipidemia, Hypertension, Renal Disease Additional Past Medical History / Comment(s): dailysis MWFr History of Any Multi-Drug Resistant Organisms: None Reported Past Surgical History: Heart Catheterization With Stent, Orthopedic Surgery Additional Past Surgical History / Comment(s): left ankle, right hip rx, plate in right knee, last heart cath 2008, left arm graph for dialysis Date of Last Stent Placement:: 2008 Past Psychological History: No Psychological Hx Reported Smoking Status: Former smoker Past Alcohol Use History: None Reported Past Drug Use History: None Reported <Jaylene Andersen - Last Filed: 10/23/16 19:36> General Exam <Harsha Jackson - Last Filed: 10/23/16 19:30> <Jaylene Andersen - Last Filed: 10/23/16 19:36> - General Exam Comments Initial Comments: General: The patient is awake and alert, in no distress, and does not appear acutely ill. Eye: Pupils are equal, round. Ears, nose, mouth and throat: There are moist mucous membranes. Neck: The neck is supple, there is no tenderness. Cardiovascular: There is a regular rate and rhythm. No murmur, rub or gallop is appreciated. Respiratory: Lungs are clear to auscultation, respirations are non-labored, breath sounds are equal. No wheezes, stridor, rales, or rhonchi. Gastrointestinal: Soft, non-distended, non-tender abdomen without masses or organomegaly noted. There is no rebound or guarding present. No CVA tenderness. Bowel sounds are unremarkable. Back: There is no tenderness to palpation in the midline. There is no obvious deformity. No rashes noted. Musculoskeletal: Normal ROM, no tenderness, There is no pedal edema. There is no calf tenderness or swelling. Sensation intact. Pulses equal bilaterally 2+. Neurological: CN II-XII intact, There are no obvious motor or sensory deficits. Coordination appears grossly intact. Speech is normal. Skin: Skin is warm and dry and no rashes or lesions are noted. Psychiatric: Cooperative, appropriate mood & affect, normal judgment. (Jaylene Andersen) Medical Decision Making - Lab Data Result diagrams: 10/23/16 18:37 10/23/16 18:37 <Harsha Jackson - Last Filed: 10/23/16 19:30> - Lab Data Result diagrams: 10/23/16 18:37 10/23/16 18:37 <Jaylene Andersen - Last Filed: 10/23/16 19:36> - Medical Decision Making Medical decision making; patient continues to vomit. He did have dialysis this morning. I discussed the case with Dr. Mcfarland who states the patient can be readmitted to his service for further evaluation and management. Dr. Jackson ( Harsha Jackson) 61-year-old male who was admitted and discharged from the hospital this morning after receiving dialysis presents for nausea and vomiting. It did resolve upon discharge and now has returned. The abdominal pain has resolved old records and CAT scan was reviewed with did not have any acute findings lab work did have abnormalities however the patient did undergo dialysis. This time we will recheck the patient's lab work. The case was discussed with on-call Dr. Alba Mckeon who does agree to the admission due to the fact patient. He has nausea and pain. Patient in agreement with the plan all questions have been answered. ( Dudas,Jaylene) - Lab Data Lab Results 10/23/16 10/23/16 Range/Units 18:37 18:37 WBC 4.8 (3.8-10.6) k/uL RBC 5.35 (4.30-5.90) m/uL Hgb 11.8 L (13.0-17.5) gm/dL Hct 37.0 L (39.0-53.0) % MCV 69.2 L (80.0-100.0) fL MCH 22.0 L (25.0-35.0) pg MCHC 31.8 (31.0-37.0) g/dL RDW 18.9 H (11.5-15.5) % Plt Count 92 L (150-450) k/uL Neutrophils % 69 % Lymphocytes % 16 % Monocytes % 8 % Eosinophils % 3 % Basophils % 1 % Neutrophils # 3.3 (1.3-7.7) k/uL Lymphocytes # 0.8 L (1.0-4.8) k/uL Monocytes # 0.4 (0-1.0) k/uL Eosinophils # 0.1 (0-0.7) k/uL Basophils # 0.0 (0-0.2) k/uL Polychromasia Present Hypochromasia Marked Poikilocytosis Slight Anisocytosis Slight Microcytosis Marked Sodium 131 L (137-145) mmol/L Potassium 5.5 H (3.5-5.1) mmol/L Chloride 89 L (98-107) mmol/L Carbon Dioxide 25 (22-30) mmol/L Anion Gap 17 mmol/L BUN 56 H (9-20) mg/dL Creatinine 8.37 H* (0.66-1.25) mg/dL Est GFR (MDRD) Af Amer 8 (>60 ml/min/1.73 sqM) Est GFR (MDRD) Non-Af 7 (>60 ml/min/1.73 sqM) Glucose 352 H (74-99) mg/dL Calcium 9.4 (8.4-10.2) mg/dL Total Bilirubin 0.9 (0.2-1.3) mg/dL AST 17 (17-59) U/L ALT 25 (21-72) U/L Alkaline Phosphatase 154 H (38-126) U/L Total Protein 6.6 (6.3-8.2) g/dL Albumin 4.2 (3.5-5.0) g/dL Disposition <Harsha Jackson - Last Filed: 10/23/16 19:30> Time of Disposition: 19:36 Decision Date: 10/23/16 Decision Time: 19:36 <Jaylene Andersen - Last Filed: 10/23/16 19:36> Clinical Impression: Hyperkalemia, Nausea & vomiting, Failure of outpatient treatment Disposition: ADMITTED IP TO THIS [facility] Condition: Stable
[2016-10-23] MEDS ORDERED: SODIUM CHLORIDE 0.9% 500 ML IV STA (18:44)
[2016-10-23 19:08] LABS: Calcium 9.4 mg/dL (8.4-10.2); Potassium 5.5 mmol/L (3.5-5.1); Total Bilirubin 0.9 mg/dL (0.2-1.3); Total Protein 6.6 g/dL (6.3-8.2)
[2016-10-23 19:14] LABS: Anisocytosis Slight; Basophils % (A) 1 %; CH 21.2; CHCM 30.8; Eosinophils # (A) 0.1 k/uL (0-0.7); Eosinophils % (A) 3 %; HDW 3.69; HGB 11.8 gm/dL (13.0-17.5); Hypochromasia Marked; Luc # (Auto) 0.17; Luc % (Auto) 4; Lymphocytes # (A) 0.8 k/uL (1.0-4.8); Lymphocytes % (A) 16 %; MCHC 31.8 g/dL (31.0-37.0); MCV 69.2 fL (80.0-100.0); Mean Platelet Volume 7.1; Microcytosis Marked; Monocytes # (A) 0.4 k/uL (0-1.0); Monocytes % (A) 8 %; Neutrophils # (A) 3.3 k/uL (1.3-7.7); Neutrophils % (A) 69 %; Poikilocytosis Slight; RBC 5.35 m/uL (4.30-5.90); RDW 18.9 % (11.5-15.5); WBC 4.8 k/uL (3.8-10.6); WBC (Perox) 4.87
--- NOTE | 2016-10-23 19:19 | XR ---
EXAMINATION TYPE: XR abdomen 2V DATE OF EXAM: 10/23/2016 7:04 PM CLINICAL HISTORY: Nausea and abdominal pain for 2 days. TECHNIQUE: Supine and upright views of the abdomen are obtained. COMPARISON: CT abdomen pelvis from yesterday. FINDINGS: Scattered gas is seen in non-distended small bowel loops. Gas and fecal material is seen in non-distended colon. There is no pneumoperitoneum or abnormal calcification appreciated. Splenom egaly is again seen. The lung bases are clear. Cardiomegaly is redemonstrated. Metallic hardware from right hip arthroplasty is partially imaged. IMPRESSION: Overall nonobstructive bowel gas pattern remains present. Splenomegaly redemonstrated.
[2016-10-23 19:35] LABS: Polychromasia Present
[2016-10-23] MEDS ORDERED: NALOXONE 0.4 MG/ML 1 ML VIAL IV PRN (19:36)
[2016-10-23] MEDS: SODIUM CHLORIDE 0.9% 1,000 ML IV SCH (20:05)
[2016-10-23 20:58] LABS: Glucose,Whole Blood 294 mg/dL (75-99)
[2016-10-23] MEDS: FUROSEMIDE 40 MG TAB PO SCH (22:03)
[2016-10-23] MEDS: hydrALAZINE HCL 50 MG TAB PO SCH (22:03)
[2016-10-23] MEDS: ATORVASTATIN 10 MG TAB PO SCH (22:04)
[2016-10-23] MEDS: INSULIN DETEMIR 100 UNIT/ML 10 ML VIAL SQ SCH (22:04)
[2016-10-23] MEDS: INSULIN LISPRO (humaLOG) 300 UNIT/3 ML VIAL SQ SCH (22:04)
[2016-10-23] MEDS: LEVOTHYROXINE 50 MCG TAB PO SCH (22:05)
[2016-10-23] MEDS: METOPROLOL TARTRATE 50 MG TAB PO SCH (22:06)
[2016-10-24 00:47] LABS: Hemoglobin A1C 9.5 % (4.2-6.1)
[2016-10-24] MEDS: hydrALAZINE HCL 50 MG TAB PO SCH ×3 (01:11→15:26)
[2016-10-24] MEDS: ONDANSETRON 4 MG/2 ML VIAL IVP PRN ×2 (01:29→09:54)
[2016-10-24] MEDS: HYDROcodone/APAP 10-325MG 1 EACH TAB PO PRN ×3 (02:03→20:50)
[2016-10-24 02:11] LABS: Glucose,Whole Blood 153 mg/dL (75-99)
[2016-10-24] MEDS: SODIUM CHLORIDE 0.9% 1,000 ML IV SCH ×2 (03:18→15:26)
[2016-10-24] MEDS: LEVOTHYROXINE 50 MCG TAB PO SCH ×2 (06:17→20:51)
[2016-10-24] MEDS: LEVOTHYROXINE 100 MCG TAB PO SCH (06:17)
[2016-10-24] MEDS: CALCIUM ACETATE 667 MG CAP PO SCH ×3 (07:28→17:43)
[2016-10-24] MEDS: FUROSEMIDE 40 MG TAB PO SCH ×2 (07:28→15:25)
[2016-10-24] MEDS: METOPROLOL TARTRATE 50 MG TAB PO SCH ×2 (07:29→20:52)
[2016-10-24] MEDS: INSULIN LISPRO (humaLOG) 300 UNIT/3 ML VIAL SQ SCH ×4 (07:29→21:14)
[2016-10-24] MEDS: ASPIRIN 81 MG CHEW PO SCH (07:29)
[2016-10-24] MEDS: INSULIN DETEMIR 100 UNIT/ML 10 ML VIAL SQ SCH ×2 (07:30→21:14)
[2016-10-24] MEDS: FAMOTIDINE 20 MG TAB PO SCH (07:30)
[2016-10-24 07:33] LABS: Glucose,Whole Blood 102 mg/dL (75-99)
[2016-10-24 09:47] LABS: Anisocytosis Slight; Basophils % (A) 1 %; CH 21.4; CHCM 30.9; Eosinophils # (A) 0.2 k/uL (0-0.7); Eosinophils % (A) 4 %; HCT 34.1 % (39.0-53.0); HGB 10.3 gm/dL (13.0-17.5); Hypochromasia Marked; Luc % (Auto) 4; Lymphocytes # (A) 0.9 k/uL (1.0-4.8); Lymphocytes % (A) 20 %; MCH 21.1 pg (25.0-35.0); MCHC 30.3 g/dL (31.0-37.0); MCV 69.6 fL (80.0-100.0); Mean Platelet Volume 7.1; Microcytosis Marked; Monocytes # (A) 0.3 k/uL (0-1.0); Monocytes % (A) 8 %; Neutrophils # (A) 2.9 k/uL (1.3-7.7); Neutrophils % (A) 65 %; Poikilocytosis Slight; RDW 18.8 % (11.5-15.5); WBC 4.5 k/uL (3.8-10.6); WBC (Perox) 4.76
[2016-10-24 09:47] LABS: Glucose,Whole Blood 157 mg/dL (75-99)
[2016-10-24 10:58] LABS: Calcium 9.2 mg/dL (8.4-10.2); Potassium 5.4 mmol/L (3.5-5.1); Total Bilirubin 0.8 mg/dL (0.2-1.3); Total Protein 5.9 g/dL (6.3-8.2)
[2016-10-24 11:34] LABS: Glucose,Whole Blood 158 mg/dL (75-99)
[2016-10-24] MEDS ORDERED: LACTULOSE 20 GM/30 ML CUP PO ONE (12:49)
--- NOTE | 2016-10-24 12:54 | P.HPIM ---
History of Present Illness H&P Date: 10/24/16 Chief Complaint: Abdominal pain and vomiting Patient is a 61-year-old male with known history of end-stage renal disease on hemodialysis, who was recently admitted to [facility] with abdominal pain and vomiting, computed tomography scan of the abdomen and pelvis was done during that admission and did not show any acute abnormality, patient felt better and was discharged home, however he started having abdominal pain and vomiting again and he returned to emergency room and was readmitted again. Gastroenterology consultation was requested. Past Medical History Past Medical History: Heart Failure, Diabetes Mellitus, Hyperlipidemia, Hypertension, Renal Disease Additional Past Medical History / Comment(s): dailysis MWFr History of Any Multi-Drug Resistant Organisms: None Reported Past Surgical History: Heart Catheterization With Stent, Orthopedic Surgery Additional Past Surgical History / Comment(s): left ankle, right hip rx, plate in right knee, last heart cath 2008, left arm graph for dialysis Past Anesthesia/Blood Transfusion Reactions: No Reported Reaction Date of Last Stent Placement:: 2008 Past Psychological History: No Psychological Hx Reported Smoking Status: Former smoker Past Alcohol Use History: None Reported Past Drug Use History: None Reported Medications and Allergies Home Medications Medication Instructions Recorded Confirmed Type Aspirin [Adult Low Dose Aspirin EC] 81 mg PO DAILY 10/23/16 10/23/16 History Atorvastatin [Lipitor] 10 mg PO HS 10/23/16 10/23/16 History Calcium Acetate 2,668 mg PO TID-W/MEALS 10/23/16 10/23/16 History Ergocalciferol (Vitamin D2) 50,000 unit PO ESPARZA 10/23/16 10/23/16 History [Vitamin D2] Famotidine [Pepcid] 20 mg PO DAILY 10/23/16 10/23/16 History Furosemide 40 mg PO BID 10/23/16 10/23/16 History Hydrocodone/Acetaminophen 1 tab PO BID PRN 10/23/16 10/23/16 History [Hydrocodon-Acetaminophn 10-325] Insulin Detemir [Levemir Flextouch] 15 unit SQ HS 10/23/16 10/23/16 History Insulin Detemir [Levemir Flextouch] 20 unit SQ AC-BRKFST 10/23/16 10/23/16 History Levothyroxine Sodium [Synthroid] 50 mcg PO BID 10/23/16 10/23/16 History Levothyroxine Sodium [Synthroid] 300 mcg PO DAILY 10/23/16 10/23/16 History Metoprolol Tartrate 50 mg PO BID 10/23/16 10/23/16 History Sodium Polystyrene Sulfonate [SPS] 30 gm PO MOTH 10/23/16 10/23/16 History hydrALAZINE HCL 50 mg PO Q8H 10/23/16 10/23/16 History Allergies Allergy/AdvReac Type Severity Reaction Status Date / Time No Known Allergies Allergy Verified 10/23/16 17:03 Physical Exam Vitals: Vital Signs Temp Pulse Resp BP Pulse Ox 10/24/16 07:00 97.7 F 75 16 121/72 96 10/23/16 22:43 97.4 F L 81 18 140/76 95 10/23/16 22:00 80 144/80 94 L 10/23/16 20:34 98.6 F 86 18 158/83 96 Intake and Output 10/23/16 10/24/16 10/24/16 22:59 06:59 14:59 Intake Total 240 Balance 240 Intake: Oral 240 Other: # Voids 0 1 # Bowel Movements 0 Weight 109 kg In general patient is alert and oriented 3 in no apparent distress HEENT head normocephalic and atraumatic Neck is supple no JVD no goiter no lymphadenopathy Chest exam reveals a few scattered crackles no wheezing Cardiac exam reveals regular heart sounds no gallops no murmurs Abdomen is soft with mild diffuse tenderness no organomegaly, with normal bowel sounds Extremity exam reveals no edema no cyanosis or clubbing Results CBC & Chem 7: 10/24/16 09:02 10/24/16 09:02 Labs: Abnormal Lab Results - Last 24 Hours (Table) 10/23/16 10/24/16 10/24/16 Range/Units 20:56 02:07 07:12 Hgb (13.0-17.5) gm/dL Hct (39.0-53.0) % MCV (80.0-100.0) fL MCH (25.0-35.0) pg MCHC (31.0-37.0) g/dL RDW (11.5-15.5) % Plt Count (150-450) k/uL Lymphocytes # (1.0-4.8) k/uL Sodium (137-145) mmol/L Potassium (3.5-5.1) mmol/L Chloride (98-107) mmol/L BUN (9-20) mg/dL Creatinine (0.66-1.25) mg/dL Glucose (74-99) mg/dL POC Glucose (mg/dL) 294 H 153 H 102 H (75-99) mg/dL AST (17-59) U/L Total Protein (6.3-8.2) g/dL 10/24/16 10/24/16 10/24/16 Range/Units 09:02 09:02 09:44 Hgb 10.3 L (13.0-17.5) gm/dL Hct 34.1 L (39.0-53.0) % MCV 69.6 L (80.0-100.0) fL MCH 21.1 L (25.0-35.0) pg MCHC 30.3 L (31.0-37.0) g/dL RDW 18.8 H (11.5-15.5) % Plt Count 84 L (150-450) k/uL Lymphocytes # 0.9 L (1.0-4.8) k/uL Sodium 135 L (137-145) mmol/L Potassium 5.4 H (3.5-5.1) mmol/L Chloride 92 L (98-107) mmol/L BUN 62 H (9-20) mg/dL Creatinine 9.38 H* (0.66-1.25) mg/dL Glucose 142 H (74-99) mg/dL POC Glucose (mg/dL) 157 H (75-99) mg/dL AST 13 L (17-59) U/L Total Protein 5.9 L (6.3-8.2) g/dL 10/24/16 Range/Units 11:18 Hgb (13.0-17.5) gm/dL Hct (39.0-53.0) % MCV (80.0-100.0) fL MCH (25.0-35.0) pg MCHC (31.0-37.0) g/dL RDW (11.5-15.5) % Plt Count (150-450) k/uL Lymphocytes # (1.0-4.8) k/uL Sodium (137-145) mmol/L Potassium (3.5-5.1) mmol/L Chloride (98-107) mmol/L BUN (9-20) mg/dL Creatinine (0.66-1.25) mg/dL Glucose (74-99) mg/dL POC Glucose (mg/dL) 158 H (75-99) mg/dL AST (17-59) U/L Total Protein (6.3-8.2) g/dL Thrombosis Risk Factor Assmnt - Choose All That Apply Each Factor Represents 1 point: Obesity (BMI >25) Each Risk Factor Represents 2 Points: Age 61-74 years Thrombosis Risk Factor Assessment Total Risk Factor Score: 3 Thrombosis Risk Factor Assessment Level: Moderate Risk Assessment and Plan Plan: #1 abdominal pain with nausea and vomiting, cause is unclear, computed tomography scan done on 10/22/2016 was unremarkable Gastroenterology consultation was requested #2 end-stage renal disease on hemodialysis, nephrology were consulted for continuation of dialysis #3 mild constipation last bowel movement was on Sunday will give a dose of lactulose Continue current medication otherwise, will add Lovenox for DVT prophylaxis will follow closely
[2016-10-24] MEDS: PANTOPRAZOLE 40 MG TABLET PO SCH (13:18)
[2016-10-24] MEDS: ENOXAPARIN 30 MG/0.3 ML SYRINGE SQ SCH (13:18)
[2016-10-24] MEDS ORDERED: GELATIN SPONGE,ABSORB (SMALL) 1 EACH SPONGE ONE (15:00)
[2016-10-24 17:11] LABS: Glucose,Whole Blood 172 mg/dL (75-99)
[2016-10-24] MEDS: ATORVASTATIN 10 MG TAB PO SCH (20:52)
[2016-10-24 21:20] LABS: Glucose,Whole Blood 110 mg/dL (75-99)
[2016-10-25] MEDS: hydrALAZINE HCL 50 MG TAB PO SCH ×4 (00:25→23:37)
[2016-10-25] MEDS: SODIUM CHLORIDE 0.9% 1,000 ML IV SCH ×3 (02:57→21:54)
[2016-10-25] MEDS: HYDROcodone/APAP 10-325MG 1 EACH TAB PO PRN ×2 (04:40→16:31)
[2016-10-25] MEDS: LEVOTHYROXINE 100 MCG TAB PO SCH (06:00)
[2016-10-25] MEDS: LEVOTHYROXINE 50 MCG TAB PO SCH ×2 (06:00→20:31)
[2016-10-25 07:33] LABS: Glucose,Whole Blood 196 mg/dL (75-99)
[2016-10-25] MEDS: INSULIN LISPRO (humaLOG) 300 UNIT/3 ML VIAL SQ SCH ×4 (07:59→21:54)
[2016-10-25] MEDS: ENOXAPARIN 30 MG/0.3 ML SYRINGE SQ SCH (08:03)
[2016-10-25] MEDS: INSULIN DETEMIR 100 UNIT/ML 10 ML VIAL SQ SCH ×2 (08:03→21:53)
[2016-10-25] MEDS: CALCIUM ACETATE 667 MG CAP PO SCH ×5 (08:05→17:59)
[2016-10-25] MEDS: PANTOPRAZOLE 40 MG TABLET PO SCH (08:06)
[2016-10-25] MEDS: FUROSEMIDE 40 MG TAB PO SCH ×2 (08:06→16:31)
[2016-10-25] MEDS: ASPIRIN 81 MG CHEW PO SCH (08:07)
[2016-10-25] MEDS: FAMOTIDINE 20 MG TAB PO SCH (08:07)
[2016-10-25] MEDS: METOPROLOL TARTRATE 50 MG TAB PO SCH ×2 (08:07→20:31)
[2016-10-25 12:16] LABS: Glucose,Whole Blood 102 mg/dL (75-99)
[2016-10-25 12:30] LABS: Calcium 8.9 mg/dL (8.4-10.2); Potassium 5.7 mmol/L (3.5-5.1); Total Bilirubin 0.7 mg/dL (0.2-1.3); Total Protein 5.8 g/dL (6.3-8.2)
[2016-10-25] MEDS: ACETAMINOPHEN TAB 325 MG TAB PO PRN ×2 (13:04→21:52)
[2016-10-25 13:32] LABS: Anisocytosis Slight; Aty Lym Flag Slight; CHCM 30.3; HCT 35.8 % (39.0-53.0); HDW 3.57; Hypochromasia Marked; MCH 21.4 pg (25.0-35.0); MCHC 30.8 g/dL (31.0-37.0); MCV 69.5 fL (80.0-100.0); Mean Platelet Volume 7.6; Microcytosis Marked; Poikilocytosis Slight; RBC 5.15 m/uL (4.30-5.90); RDW 18.7 % (11.5-15.5); WBC 4.6 k/uL (3.8-10.6); WBC (Perox) 4.45
[2016-10-25 14:37] LABS: Add Differential Manual Differential
--- NOTE | 2016-10-25 14:38 | CONS ---
DATE OF CONSULTATION: REASON FOR CONSULT: End-stage renal disease. This patient is a 61-year-old male who was recently admitted on Sunday night and discharged on Sunday when he presented to the hospital with complaints of diarrhea and abdominal pain. Patient's pain had improved the following day. He stated that he had eaten outside at a restaurant; however, when he went home, he had recurring abdominal pain. He did have episodes of diarrhea and therefore he came back. He is scheduled for hemodialysis today. No fever, no chills. No chest pains. No shortness of breath. PAST MEDICAL HISTORY: Type 2 diabetes, hyperlipidemia, obesity, hypertension, end-stage renal disease, coronary artery disease, osteoarthritis. PAST SURGICAL HISTORY: AV fistula, cardiac catheterization, coronary stent placement, left ankle, right hip surgery, surgery on right knee. Social history is positive for patient being an ex-smoker. No history of drug abuse or alcohol abuse. REVIEW OF SYSTEMS: As per HPI. Medications at home included Aspirin, Lipitor, PhosLo, vitamin D2, Pepcid, insulin, Synthroid and metoprolol, hydralazine, Kayexalate. On examination, patient is comfortable. He is seen on dialysis, tolerating his treatment well. Blood pressure is 134/70, heart rate 72 per minute. He is afebrile. Examination of the heart, S1 and S2. Examination of the lungs, bilateral breath sounds are heard. Decreased breath sounds in bases. Abdomen is soft, obese, nontender. Examination of the lower extremities shows no evidence of edema. Labs show potassium 5.7, hemoglobin 11.0. White cell count 4.6, calcium 8.9. ASSESSMENT: 1. End-stage renal disease on hemodialysis on a Sunday, Sunday, Sunday schedule. Patient is being dialyzed today. 2. Abdominal pain, most likely gastroenteritis. Patient symptoms have improved again today. Gastroenterology has been consulted. 3. Constipation, currently improved. 4. Tendency towards hyperkalemia, maintained on Kayexalate as outpatient. PLAN: Hemodialysis today and follow up on the GI consult. Patient did have CT scan of the abdomen done on his initial presentation 3 days ago, which did not reveal any major abnormal findings. Thank you for this consultation. Will continue to follow the patient with you during his hospitalization.
[2016-10-25 14:40] LABS: Manual Review Performed; Nucleated Red Blood Cells 0 /100 WBC (0-0); Target Cells Present; Total Cells Counted 100
[2016-10-25 14:41] LABS: Ovalocytes Present
[2016-10-25 17:04] LABS: Glucose,Whole Blood 180 mg/dL (75-99)
--- NOTE | 2016-10-25 18:32 | CONS ---
DATE OF CONSULTATION: 10/25/2016 REASON FOR CONSULTATION: Abdominal pain and nausea. HISTORY OF PRESENT ILLNESS: The patient is a 61-year-old pleasant white male with history of end stage renal disease on hemodialysis was admitted to the hospital with acute onset of severe intense nausea followed by abdominal pain that happened on Sunday after eating breakfast at a restaurant. The pain was mostly in the periumbilical area, epigastric area and became intensely nauseated. It lasted for 3 hours. He became quite concerned, came into the emergency room and was given some antinausea medication. Subsequently he had diarrhea for 2 or 3 bowel movements and the symptoms resolved. Since last night, he is feeling better. Already this morning, he did not have any further symptoms. He reports no emesis. He never had these symptoms in the past. No prior history of peptic ulcer disease or recent NSAID use. He had dialysis this morning, tolerated well. Past medical history of diabetes mellitus, hypertension, hyperlipidemia, end-stage renal disease on hemodialysis, type 2 diabetes, coronary artery disease, degenerative joint disease. PAST SURGICAL HISTORY: Cardiac cath with stent placements, left ankle and ( ) surgery. Medications at home include: 1. Aspirin. 2. Lipitor. 3. PhosLo. 4. Vitamin D3. 5. Pepcid. 6. Insulin. 7. Synthroid. 8. Metoprolol. 9. Hydralazine. 10. Kayexalate. SOCIAL HISTORY: Remote history of smoking. No alcohol use. FAMILY HISTORY: Unremarkable. REVIEW OF SYSTEMS: CARDIOPULMONARY: No chest pain or shortness of breath. GENITOURINARY: No dysuria or hematuria. MUSCULOSKELETAL: Unremarkable. SKIN: Unremarkable. ENDOCRINE: Unremarkable. PSYCHIATRIC: Unremarkable. NEUROLOGY: Unremarkable. ENT: Vision unremarkable. CONSTITUTIONAL: No recent weight. No fevers, chills or night sweats. On physical examination, he appears comfortable in no apparent distress. Vitals as are stable. Blood pressure is 157/78, pulse rate 75, temperature 98. HEENT: Unremarkable. Conjunctivae pink. Sclerae anicteric. Oral cavity, no lesions. NECK: No JVD or lymph node enlargement. Chest was clear to auscultation. HEART: Regular rate and rhythm. ABDOMEN: Soft. Bowel sounds are positive. No organomegaly. EXTREMITIES: No pedal edema. SKIN: No rashes. NEURO: He is alert and oriented x3. No focal deficits. Labs done at the time of admission to the hospital: WBC 4.8, hemoglobin 11.8, platelets are 92,000, AST, ALT, t-bili and alkaline phosphatase are within normal limits. BUN is 67, creatinine 10, potassium was 5.7. Abdominal x-rays at the time of admission to the hospital was normal. IMPRESSION: 1. This patient who presents with acute onset of severe epigastric pain with abdominal pain followed by intense nausea and diarrhea few hours after having breakfast in the restaurant on Sunday. He did not have any emesis. Symptoms lasted for 3 to 4 hours and after symptomatic therapy they subsided and now he is doing well. Most likely his symptoms may be related to mild food poisoning or he may have had a brief episode of viral gastroenteritis that has resolved. Clinically stable and doing much better. 2. End-stage renal disease on hemodialysis. 3. History of gastroesophageal reflux disease on Pepcid 40 mg daily. RECOMMENDATIONS: 1. Advance diet as tolerated to a renal diet. 2. Continue with symptomatic supportive care. 3. Since symptoms were brief in nature and have completely resolved, no indication for any endoscopic intervention at the present time. 4. We will follow him closely during his hospital stay. Thank you for this consultation.
--- NOTE | 2016-10-25 19:05 | P.PN ---
Subjective Principal diagnosis: abdominal pain patient is feeling better today he is tolerating liquid diet well his abdominal pain has resolved he is requesting more 4 he denies any nausea vomiting or diarrhea at this time. Objective - Vital Signs Vital signs: Vital Signs Temp 97.3 F L 10/25/16 15:00 Pulse 73 10/25/16 16:00 Resp 16 10/25/16 16:00 BP 144/80 10/25/16 15:00 Pulse Ox 96 10/25/16 15:00 Intake & Output 10/25/16 10/25/16 10/26/16 06:59 18:59 06:59 Intake Total 920 170 Balance 920 170 Weight 119.975 kg 119.975 kg Intake: IV 170 Sodium Chloride 0.9% 1, 170 000 ml @ 100 mls/hr IV . Q10H [facility] Rx#:[id number] Intake, IV Titration 800 Amount Sodium Chloride 0.9% 1, 800 000 ml @ 100 mls/hr IV . Q10H [facility] Rx#:[id number] Oral 120 Other: # Voids 1 1 - Exam in general patient is alert and oriented in no apparent distress HEENT head normocephalic and atraumatic Neck is supple no JVD no goiter no lymphadenopathy Chest is clear to auscultation no wheezing Cardiac exam reveals regular heart sounds no murmurs Abdomen is soft nontender no organomegaly Extremity exam reveals no edema - Labs CBC & Chem 7: 10/25/16 09:45 10/25/16 09:45 Labs: Abnormal Lab Results - Last 24 Hours (Table) 10/24/16 10/25/16 10/25/16 Range/Units 21:13 06:59 09:45 Hgb 11.0 L (13.0-17.5) gm/dL Hct 35.8 L (39.0-53.0) % MCV 69.5 L (80.0-100.0) fL MCH 21.4 L (25.0-35.0) pg MCHC 30.8 L (31.0-37.0) g/dL RDW 18.7 H (11.5-15.5) % Plt Count 94 L (150-450) k/uL Sodium (137-145) mmol/L Potassium (3.5-5.1) mmol/L Chloride (98-107) mmol/L BUN (9-20) mg/dL Creatinine (0.66-1.25) mg/dL Glucose (74-99) mg/dL POC Glucose (mg/dL) 110 H 196 H (75-99) mg/dL Total Protein (6.3-8.2) g/dL 10/25/16 10/25/16 10/25/16 Range/Units 09:45 12:14 17:01 Hgb (13.0-17.5) gm/dL Hct (39.0-53.0) % MCV (80.0-100.0) fL MCH (25.0-35.0) pg MCHC (31.0-37.0) g/dL RDW (11.5-15.5) % Plt Count (150-450) k/uL Sodium 134 L (137-145) mmol/L Potassium 5.7 H (3.5-5.1) mmol/L Chloride 94 L (98-107) mmol/L BUN 67 H (9-20) mg/dL Creatinine 10.90 H* (0.66-1.25) mg/dL Glucose 161 H (74-99) mg/dL POC Glucose (mg/dL) 102 H 180 H (75-99) mg/dL Total Protein 5.8 L (6.3-8.2) g/dL Assessment and Plan Plan: #1 abdominal pain with nausea and vomiting, cause is unclear, computed tomography scan done on 10/22/2016 was unremarkable Gastroenterology consultation was requested, abdominal pain resolved and no plans for intervention at this time #2 end-stage renal disease on hemodialysis, nephrology were consulted for continuation of dialysis #3 mild constipation resolved was use of lactulose Continue current medication otherwise, will add Lovenox for DVT prophylaxis will follow closely will monitor with diet until tomorrow if stable he will be discharged home
[2016-10-25] MEDS: ATORVASTATIN 10 MG TAB PO SCH (20:31)
[2016-10-25 21:18] LABS: Glucose,Whole Blood 185 mg/dL (75-99)
[2016-10-25] MEDS ORDERED: MORPHINE SULFATE 2 MG/ML SYRINGE IVP PRN (23:22)
[2016-10-26] MEDS: ONDANSETRON 4 MG/2 ML VIAL IVP PRN ×2 (00:14→19:35)
[2016-10-26] MEDS: HYDROcodone/APAP 10-325MG 1 EACH TAB PO PRN ×3 (02:51→17:16)
[2016-10-26] MEDS: LEVOTHYROXINE 100 MCG TAB PO SCH (06:06)
[2016-10-26] MEDS: LEVOTHYROXINE 50 MCG TAB PO SCH ×2 (06:06→20:59)
[2016-10-26 06:14] LABS: Glucose,Whole Blood 75 mg/dL (75-99)
[2016-10-26 06:28] LABS: Glucose,Whole Blood 99 mg/dL (75-99)
[2016-10-26] MEDS: CALCIUM ACETATE 667 MG CAP PO SCH ×3 (07:54→17:15)
[2016-10-26] MEDS: ENOXAPARIN 30 MG/0.3 ML SYRINGE SQ SCH (07:55)
[2016-10-26] MEDS: METOPROLOL TARTRATE 50 MG TAB PO SCH ×2 (07:55→20:58)
[2016-10-26] MEDS: INSULIN DETEMIR 100 UNIT/ML 10 ML VIAL SQ SCH (07:55)
[2016-10-26] MEDS: FUROSEMIDE 40 MG TAB PO SCH ×2 (07:55→16:00)
[2016-10-26] MEDS: hydrALAZINE HCL 50 MG TAB PO SCH ×3 (07:56→22:03)
[2016-10-26] MEDS: PANTOPRAZOLE 40 MG TABLET PO SCH (07:56)
[2016-10-26] MEDS: FAMOTIDINE 20 MG TAB PO SCH (07:56)
[2016-10-26] MEDS: ASPIRIN 81 MG CHEW PO SCH (07:56)
[2016-10-26] MEDS: INSULIN LISPRO (humaLOG) 300 UNIT/3 ML VIAL SQ SCH ×4 (07:57→21:33)
[2016-10-26 09:33] LABS: Calcium 9.2 mg/dL (8.4-10.2); Potassium 5.2 mmol/L (3.5-5.1); Total Bilirubin 0.7 mg/dL (0.2-1.3); Total Protein 6.1 g/dL (6.3-8.2)
[2016-10-26 09:35] LABS: Anisocytosis Slight; Aty Lym Flag Slight; CH 21.1; CHCM 29.8; HCT 36.2 % (39.0-53.0); HDW 3.55; Hypochromasia Marked; MCH 21.6 pg (25.0-35.0); MCHC 30.3 g/dL (31.0-37.0); MCV 71.4 fL (80.0-100.0); Mean Platelet Volume 6.8; Microcytosis Marked; Poikilocytosis Slight; RBC 5.07 m/uL (4.30-5.90); RDW 18.8 % (11.5-15.5); WBC 4.5 k/uL (3.8-10.6); WBC (Perox) 4.65
[2016-10-26 10:45] LABS: Add Differential Manual Differential
[2016-10-26 10:52] LABS: Nucleated Red Blood Cells 0 /100 WBC (0-0); Total Cells Counted 100
[2016-10-26 10:53] LABS: Ovalocytes Present; Target Cells Present
[2016-10-26] MEDS ORDERED: SODIUM POLYSTYRENE SULFONATE 15 GM/60 ML BOTTLE PO STA (11:01)
--- NOTE | 2016-10-26 11:27 | P.PN ---
Subjective Patient presents with abdominal pain and vomiting. This is likely related to food poisoning. Patient reports symptoms have resolved. Tolerating diet. Last bowel movement was yesterday. No further episodes of vomiting. Denies any chest pain or shortness of breath. Denies any difficulty urinating. Complaining of right great toe pain. Uric acid was checked and normal at 5. Patient did take to [place] [employer] this morning. It is still complaining of a zinging pain in that toe. X-ray of the foot has been ordered. And consult infectious disease has been placed. Patient does have an old ulcer on that toe that is followed by podiatry outpatient. Patient reports trying Neurontin in the past which caused significant constipation. Therefore he stopped taking it. Reports Lyrica costs too much. As well as Lyrica can cause thrombocytopenia. The patient's platelets are low at 85 Objective - Vital Signs Vital signs: Vital Signs Temp 96.4 F L 10/26/16 07:00 Pulse 67 10/26/16 07:00 Resp 16 10/26/16 08:00 BP 138/69 10/26/16 07:00 Pulse Ox 96 10/26/16 07:00 Intake & Output 10/25/16 10/26/16 10/26/16 18:59 06:59 18:59 Intake Total 170 Balance 170 Weight 119.975 kg 111 kg Intake: IV 170 Sodium Chloride 0.9% 1, 170 000 ml @ 100 mls/hr IV . Q10H [facility] [place] Rx#:[id number] Other: Voiding Method Toilet # Voids 1 2 - Exam Head normocephalic Neck supple Lungs clear to auscultation bilaterally no wheezing or crackles Heart regular rate and rhythm S1-S2, no rub or gallop Abdomen is soft nontender nondistended positive bowel sounds no hepatosplenomegaly Extremities no edema. Right great toe tenderness with palpation at the joint. No redness no swelling. Also ulcer on the right great toe. No redness no tenderness with palpation. No significant drainage Neuro alert and orientated to 3 - Labs CBC & Chem 7: 10/26/16 08:58 10/26/16 08:58 Labs: Abnormal Lab Results - Last 24 Hours (Table) 10/25/16 10/25/16 10/25/16 Range/Units 09:45 09:45 12:14 Hgb 11.0 L (13.0-17.5) gm/dL Hct 35.8 L (39.0-53.0) % MCV 69.5 L (80.0-100.0) fL MCH 21.4 L (25.0-35.0) pg MCHC 30.8 L (31.0-37.0) g/dL RDW 18.7 H (11.5-15.5) % Plt Count 94 L (150-450) k/uL Sodium 134 L (137-145) mmol/L Potassium 5.7 H (3.5-5.1) mmol/L Chloride 94 L (98-107) mmol/L BUN 67 H (9-20) mg/dL Creatinine 10.90 H* (0.66-1.25) mg/dL Glucose 161 H (74-99) mg/dL POC Glucose (mg/dL) 102 H (75-99) mg/dL Total Protein 5.8 L (6.3-8.2) g/dL 10/25/16 10/25/16 10/26/16 Range/Units 17:01 21:16 08:58 Hgb 11.0 L (13.0-17.5) gm/dL Hct 36.2 L (39.0-53.0) % MCV 71.4 L (80.0-100.0) fL MCH 21.6 L (25.0-35.0) pg MCHC 30.3 L (31.0-37.0) g/dL RDW 18.8 H (11.5-15.5) % Plt Count 85 L (150-450) k/uL Sodium (137-145) mmol/L Potassium (3.5-5.1) mmol/L Chloride (98-107) mmol/L BUN (9-20) mg/dL Creatinine (0.66-1.25) mg/dL Glucose (74-99) mg/dL POC Glucose (mg/dL) 180 H 185 H (75-99) mg/dL Total Protein (6.3-8.2) g/dL 10/26/16 Range/Units 08:58 Hgb (13.0-17.5) gm/dL Hct (39.0-53.0) % MCV (80.0-100.0) fL MCH (25.0-35.0) pg MCHC (31.0-37.0) g/dL RDW (11.5-15.5) % Plt Count (150-450) k/uL Sodium (137-145) mmol/L Potassium 5.2 H (3.5-5.1) mmol/L Chloride (98-107) mmol/L BUN 47 H (9-20) mg/dL Creatinine 9.02 H* (0.66-1.25) mg/dL Glucose 129 H (74-99) mg/dL POC Glucose (mg/dL) (75-99) mg/dL Total Protein 6.1 L (6.3-8.2) g/dL Assessment and Plan Plan: #1 abdominal pain with nausea and vomiting: Possibly secondary to food poisoning. computed tomography scan done on 10/22/2016 was unremarkable Evaluated by Gastroenterology , abdominal pain resolved and no plans for intervention at this time #2 chronic kidney disease, stage V. Hemodialysis Sunday. Nephrology following #3 mild constipation resolved was use of lactulose #4. Hyperkalemia secondary to his end-stage renal disease. We'll give a dose of Kayexalate 15 g. #5. Right great toe pain with old ulcer. Check foot x-ray. Consult infectious disease. Uric acid level normal. #6 thrombocytopenia: CAT scan from 10/22/2016 had shown an enlarged spleen. Plan is for patient follow-up with hematology in the outpatient setting #7 anemia of chronic kidney disease #8 diabetes mellitus type 2: Hypoglycemia this morning. Decrease his evening dose of Levemir to 10 units at bedtime
--- NOTE | 2016-10-26 12:06 | XR ---
EXAMINATION TYPE: XR foot complete RT DATE OF EXAM: 10/26/2016 11:50 AM CLINICAL HISTORY: pain TECHNIQUE: Frontal, lateral and oblique images of the right foot are obtained. COMPARISON: None. FINDINGS: There is no acute fracture/dislocation evident. The joint spaces appear within normal smith its. Vascular calcifications are seen. IMPRESSION: There is no acute fracture or dislocation. ICD 10 NO FRACTURE, INITIAL EVALUATION
[2016-10-26 12:24] LABS: Glucose,Whole Blood 100 mg/dL (75-99)
[2016-10-26] MEDS: SODIUM CHLORIDE 0.9% 1,000 ML IV SCH ×2 (12:26→21:34)
--- NOTE | 2016-10-26 15:24 | P.PN ---
Subjective Patient is seen in follow-up for end-stage renal disease. He is maintained on hemodialysis on a Sunday schedule via left upper extremity AV graft. Patient presented with abdominal pain and diarrhea. Patient states he hasn't had diarrhea for the last 2 days. His oral intake is good. Denies chest pain or shortness of breath. Vital signs are stable. General: The patient appeared well nourished and normally developed. HEENT: Head exam is unremarkable. Neck is without jugular venous distension. LUNGS: Lungs are clear to auscultation and percussion. Breath sounds decreased. HEART: Rate and Rhythm are regular. First and second heart sounds normal. No murmurs, rubs or gallops. ABDOMEN: Abdominal exam reveals normal bowel sounds. Non-tender and non- distended. No evidence of peritonitis. EXTREMITITES: No clubbing, cyanosis, or edema. Right big toe callus noted. No obvious drainage. Objective - Vital Signs Vital signs: Vital Signs Temp 96.4 F L 10/26/16 07:00 Pulse 67 10/26/16 07:00 Resp 16 10/26/16 08:00 BP 138/69 10/26/16 07:00 Pulse Ox 96 10/26/16 07:00 Intake & Output 10/25/16 10/26/16 10/26/16 18:59 06:59 18:59 Intake Total 170 Balance 170 Weight 119.975 kg 111 kg Intake: IV 170 Sodium Chloride 0.9% 1, 170 000 ml @ 100 mls/hr IV . Q10H [facility] Rx#:[id number] Other: Voiding Method Toilet # Voids 1 2 - Labs CBC & Chem 7: 10/26/16 08:58 10/26/16 08:58 Labs: Abnormal Lab Results - Last 24 Hours (Table) 10/25/16 10/25/16 10/26/16 Range/Units 17:01 21:16 08:58 Hgb 11.0 L (13.0-17.5) gm/dL Hct 36.2 L (39.0-53.0) % MCV 71.4 L (80.0-100.0) fL MCH 21.6 L (25.0-35.0) pg MCHC 30.3 L (31.0-37.0) g/dL RDW 18.8 H (11.5-15.5) % Plt Count 85 L (150-450) k/uL Potassium (3.5-5.1) mmol/L BUN (9-20) mg/dL Creatinine (0.66-1.25) mg/dL Glucose (74-99) mg/dL POC Glucose (mg/dL) 180 H 185 H (75-99) mg/dL Total Protein (6.3-8.2) g/dL 10/26/16 10/26/16 Range/Units 08:58 12:22 Hgb (13.0-17.5) gm/dL Hct (39.0-53.0) % MCV (80.0-100.0) fL MCH (25.0-35.0) pg MCHC (31.0-37.0) g/dL RDW (11.5-15.5) % Plt Count (150-450) k/uL Potassium 5.2 H (3.5-5.1) mmol/L BUN 47 H (9-20) mg/dL Creatinine 9.02 H* (0.66-1.25) mg/dL Glucose 129 H (74-99) mg/dL POC Glucose (mg/dL) 100 H (75-99) mg/dL Total Protein 6.1 L (6.3-8.2) g/dL Assessment and Plan Plan: Assessment: #1. End-stage renal disease maintained on hemodialysis on a Sunday schedule via left upper extremity AV graft. #2. Abdominal pain and diarrhea likely related to gastroenteritis. Appears to have resolved. #3. Chronic kidney disease mineral bone disease. #4. Right big toe callus. #5. Insulin-dependent diabetes mellitus. #6. Hypertension with chronic kidney disease. Controlled. Plan: Hemodialysis tomorrow with goal 4 L ultrafiltration. Maintain PhosLo with meals. Stable to be discharged home from nephrology standpoint.
[2016-10-26 17:04] LABS: Glucose,Whole Blood 113 mg/dL (75-99)
--- NOTE | 2016-10-26 18:11 | PN ---
DATE OF SERVICE: 10/26/2016 Patient is a 61-year-old pleasant white male admitted to the hospital with acute onset of severe abdominal pain followed by intense nausea and some diarrhea. It all lasted for 24 hours and completely resolved now. He is asymptomatic. He has history of endstage renal disease on hemodialysis and the last dialysis was yesterday. The patient is still in the hospital because he was noted to have some left big toe pain and had a small ulcer for which Dr. Vasquez was consulted. Presently, on physical examination he appears comfortable in no apparent distress. Vitals as are stable. Blood pressure 138/69, pulse 67, temperature 98.4. HEENT examination unremarkable. Conjunctivae pink. Sclerae anicteric. Oral cavity, no lesions. NECK: No JVD or lymph node enlargement. Chest was clear to auscultation. HEART: Regular rate and rhythm. Abdomen is soft. Bowel sounds are positive. No organomegaly. EXTREMITIES: No pedal edema. SKIN: No rashes. NEURO: He is alert and oriented x3. No focal deficits. Labs done today: WBC 4.5, hemoglobin 11, platelets 85, potassium 5.2. IMPRESSION: 1. Abdominal pain/nausea, and diarrhea, resolved. Possible viral gastroenteritis, but the patient had symptoms only for 24 hours and since doing extremely well on a regular renal diet, tolerating well. 2. Endstage renal disease on hemodialysis. RECOMMENDATIONS: 1. Continue to advance diet as tolerated. 2. Continue with symptomatic and supportive care. 3. Since abdominal symptoms are completely resolved no need for any endoscopic intervention. 4. We will sign off. Please call us if needed.
[2016-10-26] MEDS: ATORVASTATIN 10 MG TAB PO SCH (20:58)
[2016-10-26] MEDS ORDERED: INSULIN DETEMIR 100 UNIT/ML 10 ML VIAL SQ SCH (21:00)
[2016-10-26 21:04] LABS: Glucose,Whole Blood 98 mg/dL (75-99)
[2016-10-26] MEDS ORDERED: AMITRIPTYLINE HCL 50 MG TAB PO SCH (22:00)
--- NOTE | 2016-10-26 22:09 | P.CONS ---
History of Present Illness - Reason for Consult Consult date: 10/26/16 - Chief Complaint Diabetic foot ulcer Review of Systems HEENT:Denies headache or acute visual change. Denies sinus or mouth discomforts. Denies neck stiffness or pain. Denies significant oral cavity pain. Denies difficulty on swallowing. Lungs: Denies significant shortness of breath, cough, sputum production, or hemoptysis. Cardiovascular: Denies significant shortness of breath, chest pain, chest wall pain, orthopnea, dyspnea on exertion, syncope Gastrointestinal:Denies nausea, vomiting, diarrhea, constipation, hematemesis, melena, hematochezia. No no significant change of bowel habit noticed. Musculoskeletal: denies significant myalgias or arthralgias. No new joint swelling. Denies new back pain. Skin: Ulcer right great toe the fistula left arm is functioning well Neuro: Denies headache or visual change. Denies any new onset weakness or difficulty with ambulation. Denies falls or seizures. Psychiatric:Denies anxiety or depression. Endocrine: Denies significant fatigue, denies significant weight loss or weight gain. Past Medical History Past Medical History: Heart Failure, Diabetes Mellitus, Hyperlipidemia, Hypertension, Renal Disease Additional Past Medical History / Comment(s): dailysis MWFr History of Any Multi-Drug Resistant Organisms: None Reported Past Surgical History: Heart Catheterization With Stent, Orthopedic Surgery Additional Past Surgical History / Comment(s): left ankle, right hip rx, plate in right knee, last heart cath 2008, left arm graph for dialysis Past Anesthesia/Blood Transfusion Reactions: No Reported Reaction Date of Last Stent Placement:: 2008 Past Psychological History: No Psychological Hx Reported Additional Psychological History / Comment(s): . Lives with his . One adult daughter. 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 No experience. Likes to golf. No animal exposures Smoking Status: Former smoker Past Alcohol Use History: None Reported Past Drug Use History: None Reported Medications and Allergies Home Medications and Allergies Comment(s): Current Medications Acetaminophen (Tylenol Tab) 650 mg PO Q6HR PRN PRN Reason: Mild Pain or Fever > 100.5 Last Admin: 10/25/16 21:52 Dose: 650 mg Hydrocodone Bitart/Acetaminophen (Bee 10) 2 each PO Q8H PRN PRN Reason: Moderate Pain Last Admin: 10/26/16 17:16 Dose: 2 each Amitriptyline HCl (Elavil) 50 mg PO HS [facility] Last Admin: 10/26/16 22:06 Dose: 50 mg Aspirin (Aspirin) 81 mg PO DAILY [facility] Last Admin: 10/26/16 07:56 Dose: 81 mg Atorvastatin Calcium (Lipitor) 10 mg PO HS [facility] Last Admin: 10/26/16 20:58 Dose: 10 mg Calcium Acetate (Phoslo) 2,668 mg PO TID-W/MEALS [facility] Last Admin: 10/26/16 17:15 Dose: 2,668 mg Enoxaparin Sodium (Lovenox) 30 mg SQ DAILY [facility] Last Admin: 10/26/16 07:55 Dose: 30 mg Ergocalciferol (Vitamin D2) 50,000 unit PO Torrez@1200 [facility] Famotidine (Pepcid) 20 mg PO DAILY [facility] Last Admin: 10/26/16 07:56 Dose: 20 mg Furosemide (Lasix) 40 mg PO BID@0900,1600 [facility] Last Admin: 10/26/16 16:00 Dose: 40 mg Hydralazine HCl (Apresoline) 50 mg PO Q8HR [facility] Last Admin: 10/26/16 22:03 Dose: 50 mg Sodium Chloride (Saline 0.9%) 1,000 mls @ 100 mls/hr IV .Q10H [facility] Last Admin: 10/26/16 21:34 Dose: 100 mls/hr Insulin Detemir (Levemir) 20 unit SQ AC-BRKFST [facility] Last Admin: 10/26/16 07:55 Dose: 20 unit Insulin Detemir (Levemir) 10 unit SQ HS [facility] Last Admin: 10/26/16 21:34 Dose: Not Given Insulin Human Lispro (Humalog) 0 unit SQ [facility] PRN Reason: Protocol Last Admin: 10/26/16 21:33 Dose: Not Given Levothyroxine Sodium (Synthroid) 300 mcg PO DAILY@0630 [facility] Last Admin: 10/26/16 06:06 Dose: 300 mcg Levothyroxine Sodium (Synthroid) 50 mcg PO BID@0630,2100 [facility] Last Admin: 10/26/16 20:59 Dose: 50 mcg Metoprolol Tartrate (Lopressor) 50 mg PO BID [facility] Last Admin: 10/26/16 20:58 Dose: 50 mg Morphine Sulfate (Morphine Sulfate (Inj)) 2 mg IVP ONCE PRN PRN Reason: Pain/Discomfort Last Admin: 10/25/16 23:38 Dose: 2 mg Naloxone HCl (Narcan) 0.2 mg IV Q2M PRN PRN Reason: Opioid Reversal Ondansetron HCl (Zofran) 4 mg IVP Q8HR PRN PRN Reason: Nausea And Vomiting Last Admin: 10/26/16 19:35 Dose: 4 mg Pantoprazole Sodium (Protonix) 40 mg PO -BRKFST [facility] Last Admin: 10/26/16 07:56 Dose: 40 mg Home Medications Medication Instructions Recorded Confirmed Type Aspirin [Adult Low Dose Aspirin EC] 81 mg PO DAILY 10/23/16 10/23/16 History Atorvastatin [Lipitor] 10 mg PO HS 10/23/16 10/23/16 History Calcium Acetate 2,668 mg PO TID-W/MEALS 10/23/16 10/23/16 History Ergocalciferol (Vitamin D2) 50,000 unit PO TORREZ 10/23/16 10/23/16 History [Vitamin D2] Famotidine [Pepcid] 20 mg PO DAILY 10/23/16 10/23/16 History Furosemide 40 mg PO BID 10/23/16 10/23/16 History Hydrocodone/Acetaminophen 1 tab PO BID PRN 10/23/16 10/23/16 History [Hydrocodon-Acetaminophn 10-325] Insulin Detemir [Levemir Flextouch] 15 unit SQ HS 10/23/16 10/23/16 History Insulin Detemir [Levemir Flextouch] 20 unit SQ -BRKFST 10/23/16 10/23/16 History Levothyroxine Sodium [Synthroid] 50 mcg PO BID 10/23/16 10/23/16 History Levothyroxine Sodium [Synthroid] 300 mcg PO DAILY 10/23/16 10/23/16 History Metoprolol Tartrate 50 mg PO BID 10/23/16 10/23/16 History Sodium Polystyrene Sulfonate [SPS] 30 gm PO MOTH 10/23/16 10/23/16 History hydrALAZINE HCL 50 mg PO Q8H 10/23/16 10/23/16 History Allergies Allergy/AdvReac Type Severity Reaction Status Date / Time No Known Allergies Allergy Verified 10/23/16 17:03 Physical Exam Vitals: Vital Signs Temp Pulse Resp BP Pulse Ox 10/26/16 16:00 16 10/26/16 15:00 96.8 F L 61 16 150/72 96 10/26/16 08:00 16 10/26/16 07:00 96.4 F L 67 16 138/69 96 10/25/16 23:00 97.0 F L 80 16 140/87 96 Intake and Output 10/26/16 10/26/16 10/26/16 06:59 14:59 22:59 Other: Voiding Method Toilet Toilet # Voids 2 2 0 # Bowel Movements 0 Weight 111 kg Pleasant 61-year-old male who is comfortable at this time. His nausea and emesis have resolved. HEENT: Anicteric conjunctiva are pink and moist nasal mucosa grossly intact without significant lesions, there is no thrush. Neck: The neck is supple without significant lymphadenopathy or thyromegaly. Lungs: Good bilateral air entry without significant crackles or wheezing. There is no significant bronchial sounds. There is no egophony or dullness. Heart: Regular rate and rhythm with an audible S1-S2, no S3 no S4. The murmur from the fistulas easily heard but no other murmurs are noted. Abdomen: Positive bowel sounds soft and nontender without palpable masses or organomegaly. There was no guarding or rebound. Extremities: The left upper arm fistula is functioning well. The right great toe has evidence of the plantar ulceration. Neuro: Awake alert oriented to person place and time. There are no acute new gross focal sensory motor deficits. Results CBC & Chem 7: 10/26/16 08:58 10/26/16 08:58 Labs: Abnormal Lab Results - Last 24 Hours (Table) 10/26/16 10/26/16 10/26/16 Range/Units 08:58 08:58 12:22 Hgb 11.0 L (13.0-17.5) gm/dL Hct 36.2 L (39.0-53.0) % MCV 71.4 L (80.0-100.0) fL MCH 21.6 L (25.0-35.0) pg MCHC 30.3 L (31.0-37.0) g/dL RDW 18.8 H (11.5-15.5) % Plt Count 85 L (150-450) k/uL Potassium 5.2 H (3.5-5.1) mmol/L BUN 47 H (9-20) mg/dL Creatinine 9.02 H* (0.66-1.25) mg/dL Glucose 129 H (74-99) mg/dL POC Glucose (mg/dL) 100 H (75-99) mg/dL Total Protein 6.1 L (6.3-8.2) g/dL 10/26/16 Range/Units 17:03 Hgb (13.0-17.5) gm/dL Hct (39.0-53.0) % MCV (80.0-100.0) fL MCH (25.0-35.0) pg MCHC (31.0-37.0) g/dL RDW (11.5-15.5) % Plt Count (150-450) k/uL Potassium (3.5-5.1) mmol/L BUN (9-20) mg/dL Creatinine (0.66-1.25) mg/dL Glucose (74-99) mg/dL POC Glucose (mg/dL) 113 H (75-99) mg/dL Total Protein (6.3-8.2) g/dL Laboratory Results WBC 4.5 k/uL (3.8-10.6) 10/26/16 08:58 RBC 5.07 m/uL (4.30-5.90) 10/26/16 08:58 Hgb 11.0 gm/dL (13.0-17.5) L 10/26/16 08:58 Hct 36.2 % (39.0-53.0) L 10/26/16 08:58 MCV 71.4 fL (80.0-100.0) L 10/26/16 08:58 MCH 21.6 pg (25.0-35.0) L 10/26/16 08:58 MCHC 30.3 g/dL (31.0-37.0) L 10/26/16 08:58 RDW 18.8 % (11.5-15.5) H 10/26/16 08:58 Plt Count 85 k/uL (150-450) L 10/26/16 08:58 Neutrophils % 65 % 10/24/16 09:02 Neutrophils % (Manual) 56.0 % 10/26/16 08:58 Lymphocytes % 20 % 10/24/16 09:02 Lymphocytes % (Manual) 27.0 % 10/26/16 08:58 Monocytes % 8 % 10/24/16 09:02 Monocytes % (Manual) 5.0 % 10/26/16 08:58 Eosinophils % 4 % 10/24/16 09:02 Eosinophils % (Manual) 12.0 % 10/26/16 08:58 Basophils % 1 % 10/24/16 09:02 Neutrophils # 2.9 k/uL (1.3-7.7) 10/24/16 09:02 Neutrophils # (Manual) 2.5 k/uL (1.3-7.7) 10/26/16 08:58 Lymphocytes # 0.9 k/uL (1.0-4.8) L 10/24/16 09:02 Lymphocytes # (Manual) 1.2 k/uL (1.0-4.8) 10/26/16 08:58 Monocytes # 0.3 k/uL (0-1.0) 10/24/16 09:02 Monocytes # (Manual) 0.2 k/uL (0-1.0) 10/26/16 08:58 Eosinophils # 0.2 k/uL (0-0.7) 10/24/16 09:02 Eosinophils # (Manual) 0.5 k/uL (0-0.7) 10/26/16 08:58 Basophils # 0.0 k/uL (0-0.2) 10/24/16 09:02 Nucleated RBCs 0 /100 WBC (0-0) 10/26/16 08:58 Manual Slide Review Performed 10/25/16 09:45 Polychromasia Present 10/23/16 18:37 Hypochromasia Marked 10/26/16 08:58 Poikilocytosis Slight 10/26/16 08:58 Anisocytosis Slight 10/26/16 08:58 Microcytosis Marked 10/26/16 08:58 Target Cells Present 10/26/16 08:58 Ovalocytes Present 10/26/16 08:58 Sodium 137 mmol/L (137-145) 10/26/16 08:58 Potassium 5.2 mmol/L (3.5-5.1) H 10/26/16 08:58 Chloride 99 mmol/L (98-107) 10/26/16 08:58 Carbon Dioxide 23 mmol/L (22-30) 10/26/16 08:58 Anion Gap 15 mmol/L 10/26/16 08:58 BUN 47 mg/dL (9-20) H 10/26/16 08:58 Creatinine 9.02 mg/dL (0.66-1.25) H* 10/26/16 08:58 Est GFR (MDRD) Af Amer 7 (>60 ml/min/1.73 sqM) 10/26/16 08:58 Est GFR (MDRD) Non-Af 6 (>60 ml/min/1.73 sqM) 10/26/16 08:58 Glucose 129 mg/dL (74-99) H 10/26/16 08:58 POC Glucose (mg/dL) 98 mg/dL (75-99) 10/26/16 21:02 POC Glu Teacher Drama SLY Rissa Reinoso 10/26/16 21:[address] Glu mg/dL 226 mg/dL 10/23/16 18:37 Hemoglobin A1c 9.5 % (4.2-6.1) H 10/23/16 18:37 Uric Acid 5.0 mg/dL (3.5-8.5) 10/26/16 08:58 Calcium 9.2 mg/dL (8.4-10.2) 10/26/16 08:58 Total Bilirubin 0.7 mg/dL (0.2-1.3) 10/26/16 08:58 AST 22 U/L (17-59) 10/26/16 08:58 ALT 30 U/L (21-72) 10/26/16 08:58 Alkaline Phosphatase 108 U/L (38-126) 10/26/16 08:58 Total Protein 6.1 g/dL (6.3-8.2) L 10/26/16 08:58 Albumin 3.8 g/dL (3.5-5.0) 10/26/16 08:58 Assessment and Plan (1) Nausea & vomiting Status: Acute (2) End stage renal disease on dialysis due to type 2 diabetes mellitus Status: Acute (3) Diabetic ulcer of foot associated with type 2 diabetes mellitus, limited to breakdown of skin Narrative/Plan: Pleasant 61-year-old male presents to Hospital the significant amounts of nausea vomiting and diarrhea. It lasted relatively short period time. The patient is now resolved. He likely either had ingestion of a preformed toxin burn acute viral event. He is now recovered. He will have dialysis in the morning. And then likely discharge home. He does have evidence of that Melendez grade 2 diabetic lower extremity ulcer to his right great toe. Local wound care with medical on is applied. The patient is instructed to follow-up in the wound healing center after his discharge for further workup of this toe. He does have diabetic shoes. Make sure he wears those. I will follow in the wound healing Center. Status: Acute
[2016-10-27 06:14] LABS: Calcium 8.5 mg/dL (8.4-10.2); Potassium 5.2 mmol/L (3.5-5.1); Total Bilirubin 0.6 mg/dL (0.2-1.3); Total Protein 5.5 g/dL (6.3-8.2)
[2016-10-27] MEDS: LEVOTHYROXINE 100 MCG TAB PO SCH (06:27)
[2016-10-27] MEDS: LEVOTHYROXINE 50 MCG TAB PO SCH (06:27)
[2016-10-27] MEDS: SODIUM CHLORIDE 0.9% 1,000 ML IV SCH (06:28)
[2016-10-27 07:18] LABS: Glucose,Whole Blood 114 mg/dL (75-99)
[2016-10-27 07:41] VITALS: BP 111/60; PULSE 81; RESP 20; TEMP 96.3
[2016-10-27] MEDS: CALCIUM ACETATE 667 MG CAP PO SCH (08:17)
[2016-10-27] MEDS: INSULIN DETEMIR 100 UNIT/ML 10 ML VIAL SQ SCH (08:17)
[2016-10-27] MEDS: INSULIN LISPRO (humaLOG) 300 UNIT/3 ML VIAL SQ SCH (08:17)
[2016-10-27] MEDS: ENOXAPARIN 30 MG/0.3 ML SYRINGE SQ SCH (08:17)
[2016-10-27] MEDS: ASPIRIN 81 MG CHEW PO SCH (08:18)
[2016-10-27] MEDS: FUROSEMIDE 40 MG TAB PO SCH (08:18)
[2016-10-27] MEDS: METOPROLOL TARTRATE 50 MG TAB PO SCH (08:18)
[2016-10-27] MEDS: PANTOPRAZOLE 40 MG TABLET PO SCH (08:18)
[2016-10-27] MEDS: hydrALAZINE HCL 50 MG TAB PO SCH (08:18)
[2016-10-27] MEDS: FAMOTIDINE 20 MG TAB PO SCH (08:18)
[2016-10-27] MEDS: HYDROcodone/APAP 10-325MG 1 EACH TAB PO PRN (09:21)
[2016-10-27 09:39] LABS: Anisocytosis Slight; Aty Lym Flag Slight; CH 21.5; CHCM 30.9; HCT 36.8 % (39.0-53.0); HDW 3.76; HGB 11.2 gm/dL (13.0-17.5); Hypochromasia Marked; MCH 21.3 pg (25.0-35.0); MCHC 30.5 g/dL (31.0-37.0); Mean Platelet Volume 6.9; Microcytosis Marked; Poikilocytosis Slight; RBC 5.26 m/uL (4.30-5.90); RDW 18.7 % (11.5-15.5); WBC 3.8 k/uL (3.8-10.6); WBC (Perox) 4.18
--- NOTE | 2016-10-27 11:04 | P.DS ---
Providers Date of admission: 10/23/16 19:30 Expected date of discharge: 10/27/16 Attending physician: Debbie Bernal Consults: 10/24/16 12:44 Consult Physician Routine Consulting Provider: Azalia Natarajan Consult Reason/Comments: vomiting Do you want consulting provider notified?: Yes 10/24/16 16:03 Consult Physician Routine Consulting Provider: Jennifer Langford Consult Reason/Comments: Hemodialysis MWF Do you want consulting provider notified?: Yes 10/26/16 11:11 Consult Physician Routine Consulting Provider: Conor Vasquez Consult Reason/Comments: right toe pain and ulcer Do you want consulting provider notified?: Yes Primary care physician: [facility] Course: Discharge diagnosis #1 abdominal pain with nausea and vomiting: Possibly secondary to food poisoning or viral gastroenteritis. computed tomography scan done on 2016 was unremarkable Evaluated by Gastroenterology , abdominal pain resolved and no plans for intervention at this time #2 chronic kidney disease, stage V. Hemodialysis Sunday. Nephrology following #3 mild constipation resolved was use of lactulose #4. Hyperkalemia secondary to his end-stage renal disease. #5. Diabetic ulcer of right toe associated with diabetes mellitus type 2: Foot x-ray no fracture. Normal uric acid level. #6 thrombocytopenia: CAT scan from 10/22/2016 had shown an enlarged spleen. Plan is for patient follow-up with hematology in the outpatient setting #7 anemia of chronic kidney disease #8 diabetes mellitus type 2: Continue home insulin Hospital course This is a 61-year-old male who presented back to the hospital with abdominal pain and vomiting. It is felt likely the symptoms are related to the food poisoning or viral gastritis. On his previous admission he had a CAT scan of the abdomen that was unremarkable on 10/22/2016. Was seen by GI service. Patient's symptoms have resolved and they only lasted for a few days therefore no intervention was required. Patient also is complaining of right great toe pain is likely associated with a diabetic foot ulcer. Patient will continue the wound care treatments prescribed by Dr. Vasquez. Annual follow-up in the wound care center. Due to patient's thrombocytopenia it is recommended that he follows up with hematology in the outpatient setting. Unfortunately due to the side effects of thrombocytopenia with medication such as amitriptyline, Neurontin and Lyrica we are unable to use these medications to help treat his neuropathic pain. Patient is complaining of tingly pain in the right great toe. At this time we'll continue with the [place] 10 mg 1 every 6 hours as needed for pain. I will have him follow-up with his PCP. Continue with wound care. And he has follow-up with hematology. Patient is medical stable for discharge. He received hemodialysis this morning. Please refer to chart for any further details. Patient Condition at Discharge: Stable Plan - Discharge Summary Discharge Medication List Aspirin [Adult Low Dose Aspirin EC] 81 mg PO DAILY 10/23/16 [History] Atorvastatin [Lipitor] 10 mg PO HS 10/23/16 [History] Calcium Acetate 2,668 mg PO TID-W/MEALS 10/23/16 [History] Ergocalciferol (Vitamin D2) [Vitamin D2] 50,000 unit PO ESPARZA 10/23/16 [History] Famotidine [Pepcid] 20 mg PO DAILY 10/23/16 [History] Furosemide 40 mg PO BID 10/23/16 [History] Insulin Detemir [Levemir Flextouch] 15 unit SQ HS 10/23/16 [History] Insulin Detemir [Levemir Flextouch] 20 unit SQ AC-BRKFST 10/23/16 [History] Levothyroxine Sodium [Synthroid] 50 mcg PO BID 10/23/16 [History] Levothyroxine Sodium [Synthroid] 300 mcg PO DAILY 10/23/16 [History] Metoprolol Tartrate 50 mg PO BID 10/23/16 [History] Sodium Polystyrene Sulfonate [SPS] 30 gm PO MOTH 10/23/16 [History] hydrALAZINE HCL 50 mg PO Q8H 10/23/16 [History] HYDROcodone/APAP 10-325MG [[place] 10-325] 1 each PO Q6H PRN #0 tab 10/27/16 [Rx] Follow up Appointment(s)/Referral(s): Conor Vasquez MD [STAFF PHYSICIAN] - 1 Week (in Wound Healing Center) Jazmin Castaneda MD [Primary Care Provider] - 1 Week Patient Instructions/Handouts: Heart Failure (DC), Type 2 Diabetes in Adults ( DC) Activity/Diet/Wound Care/Special Instructions: Diet: cardiac, renal, diabetic Activity: as tolerated continue Mark Miles, F to Right toe ulcer Discharge Disposition: HOME SELF-CARE
[2016-10-27 11:09] LABS: Add Differential Manual Differential
[2016-10-27 11:14] LABS: Nucleated Red Blood Cells 0 /100 WBC (0-0); Total Cells Counted 100
[2016-10-27 11:15] LABS: Manual Review Performed; Ovalocytes Present; Polychromasia Present; Target Cells Present
[2016-10-27 12:12] VITALS: BMI 38.5
--- NOTE | 2016-10-27 12:21 | PN ---
Patient is seen for followup for end-stage renal disease. He was just dialyzed this morning and has plans for discharge. Patient was admitted to the hospital with abdominal pain and diarrhea most likely from viral gastroenteritis versus food poisoning, this has now improved. On examination, blood pressure is 111/60, heart rate 81 per minute. Patient appears to be euvolemic. No abdominal pain is noted or tenderness. Labs show potassium 5.2. Hemoglobin 11.2 g/dL. ASSESSMENT: 1. End-stage renal disease on hemodialysis on a Sunday, Sunday, Sunday schedule. 2. Mild hyperkalemia, expect to have improved after dialysis today. 3. Abdominal pain and diarrhea most likely from food poisoning versus viral gastroenteritis, currently resolved. 4. Small ulcer on the foot, status post evaluation by Infectious Disease, no need for antibiotics. Continue local care. PLAN: The patient is stable for discharge from nephrology standpoint.
[2016-10-29] MEDS ORDERED: ERGOCALCIFEROL 50,000 UNIT CAP PO SCH (12:00)
== END 2016-10-27 12:19 | disposition home or self-care (01) | DRG 391 ==
LOC: EC 16:23 → OBSVTOIN 19:30 → 4MS4W 19:30
PROVIDERS: ADMIT Internal Medicine; ATTEND Internal Medicine
PROC: 5A1D60Z (ICD-10-PCS; principal; 2016-10-25)
DX: R10.9 Unspecified abdominal pain (principal); N18.6 End stage renal disease; I13.2 Hypertensive heart and chronic kidney disease with heart failure and with stage 5 chronic kidney disease, or end stage renal disease; E11.22 Type 2 diabetes mellitus with diabetic chronic kidney disease; E11.621 Type 2 diabetes mellitus with foot ulcer; D69.6 Thrombocytopenia, unspecified; E87.5 Hyperkalemia; I50.9 Heart failure, unspecified; L97.511 Non-pressure chronic ulcer of other part of right foot limited to breakdown of skin; A05.9 Bacterial foodborne intoxication, unspecified; A08.4 Viral intestinal infection, unspecified; Z99.2 Dependence on renal dialysis; K59.00 Constipation, unspecified; M19.91 Primary osteoarthritis, unspecified site; E78.5 Hyperlipidemia, unspecified; I25.10 Atherosclerotic heart disease of native coronary artery without angina pectoris; K21.9 Gastro-esophageal reflux disease without esophagitis; E66.9 Obesity, unspecified; D63.1 Anemia in chronic kidney disease; Z68.38 Body mass index [BMI] 38.0-38.9, adult; Z95.5 Presence of coronary angioplasty implant and graft; Z87.891 Personal history of nicotine dependence; Z79.82 Long term (current) use of aspirin; Z79.4 Long term (current) use of insulin; Z79.899 Other long term (current) drug therapy
CPT/HCPCS: 36415; 74020; 80053; 83036; 84550; 85025; 90935; 96361; 96372; 96374; 99285

== ENCOUNTER 2016-11-29 23:44 | Emergency (ER) | payer MEDICARE ==
[2016-11-29 23:53] VITALS: BP 157/85; PULSE 90; RESP 18; TEMP 97.5
[2016-11-29] MEDS ORDERED: HYDROcodone/APAP 5-325MG 1 EACH TAB PO STA (23:57)
--- NOTE | 2016-11-30 00:02 | ED ---
Upper Extremity HPI - General Chief Complaint: Extremity Injury, Upper Stated Complaint: Poss Broken Wrist Time Seen by Provider: 11/29/16 23:55 Source: patient, RN notes reviewed Mode of arrival: ambulatory Limitations: no limitations - History of Present Illness Initial Comments: 61-year-old male presents to the emergency department with a chief complaint of left wrist injury. Patient was playing golf and he went to hit the ball and his club hit the ground and hurt his wrist. Patient states his pain was not affected yesterday but seemed to worsen today. Patient has also noticed some more swelling. Patient was concerned due to the pain and discomfort so they thought that they should be evaluated.Patient denies any recent fever, chills, shortness of breath, chest pain, back pain, abdominal pain, nausea vomiting, numbness or tingling, dysuria or hematuria, constipation or diarrhea, headaches or visual changes, or any other current symptoms. - Related Data Home Medications Medication Instructions Recorded Confirmed Aspirin [Adult Low Dose Aspirin EC] 81 mg PO DAILY 10/23/16 11/28/16 Atorvastatin [Lipitor] 10 mg PO HS 10/23/16 11/28/16 Calcium Acetate 2,668 mg PO TID-W/MEALS 10/23/16 11/28/16 Ergocalciferol (Vitamin D2) 50,000 unit PO ESPARZA 10/23/16 11/28/16 [Vitamin D2] Famotidine [Pepcid] 20 mg PO DAILY 10/23/16 11/28/16 Furosemide 40 mg PO BID 10/23/16 11/28/16 Insulin Detemir [Levemir Flextouch] 15 unit SQ HS 10/23/16 11/28/16 Insulin Detemir [Levemir Flextouch] 20 unit SQ AC-BRKFST 10/23/16 11/28/16 Levothyroxine Sodium [Synthroid] 50 mcg PO BID 10/23/16 11/28/16 Levothyroxine Sodium [Synthroid] 300 mcg PO DAILY 10/23/16 11/28/16 Metoprolol Tartrate 50 mg PO BID 10/23/16 11/28/16 Sodium Polystyrene Sulfonate [SPS] 50 gm PO MOTH 10/23/16 11/28/16 hydrALAZINE HCL 50 mg PO Q8H 10/23/16 11/28/16 Fexofenadine/Pseudoephedrine 25 mg PO DAILY 11/21/16 11/28/16 [Camila-D 24 Hour Tablet] Previous Rx's Medication Instructions Recorded HYDROcodone/APAP 10-325MG [[place] 1 each PO Q6H PRN #0 tab 10/27/16 10-325] Hydrocodone/Acetaminophen [[place] 1 each PO Q6HR PRN #20 tab 11/30/16 5-325] Allergies Allergy/AdvReac Type Severity Reaction Status Date / Time No Known Allergies Allergy Verified 11/29/16 23:53 Review of Systems ROS Statement: Those systems with pertinent positive or pertinent negative responses have been documented in the HPI. ROS Other: All systems not noted in ROS Statement are negative. Past Medical History Past Medical History: Heart Failure, Diabetes Mellitus, Hyperlipidemia, Hypertension, Renal Disease Additional Past Medical History / Comment(s): dailysis MWFr. was admitted 3 weeks ago for stomach virus History of Any Multi-Drug Resistant Organisms: None Reported Past Surgical History: Heart Catheterization With Stent, Orthopedic Surgery Additional Past Surgical History / Comment(s): left ankle, right hip rx, plate in right knee, last heart cath 2008, left arm graph for dialysis Past Anesthesia/Blood Transfusion Reactions: No Reported Reaction Date of Last Stent Placement:: 2008 Past Psychological History: No Psychological Hx Reported Additional Psychological History / Comment(s): . Lives with his . One adult daughter. 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 Likes to golf. No animal exposures Smoking Status: Former smoker Past Alcohol Use History: None Reported Past Drug Use History: None Reported - Past Family History Mother Family Medical History: Congestive Heart Failure (CHF) Father Family Medical History: Congestive Heart Failure (CHF) Brother(s) Family Medical History: Congestive Heart Failure (CHF) General Exam - General Exam Comments Initial Comments: General: The patient is awake and alert, in no distress, and does not appear acutely ill. Neck: The neck is supple, there is no tenderness. Cardiovascular: There is a regular rate and rhythm. No murmur, rub or gallop is appreciated. Respiratory: Lungs are clear to auscultation, respirations are non-labored, breath sounds are equal. No wheezes, stridor, rales, or rhonchi. Musculoskeletal: Sensation intact with 2+ pulses left upper extremity. Extremity. Full range of motion of left elbow. Patient does appear to haveSome swelling and deformity. No range of motion due to pain. Find motion of all fingers. No anatomical snuffbox tenderness. Neurological: CN II-XII intact, There are no obvious motor or sensory deficits. Coordination appears grossly intact. Speech is normal. Skin: Skin is warm and dry and no rashes or lesions are noted. Psychiatric: Normal mood and affect. Limitations: no limitations Course Vital Signs 11/29/16 23:50 Temperature 97.5 F L Pulse Rate 90 Respiratory 18 Rate Blood Pressure 157/85 O2 Sat by Pulse 96 Oximetry Procedures - Orthopedic Splinting/Casting Injury #1 Side: right Upper Extremity Injury Location: wrist Upper Extremity Immobilizer: sling/shoulder immobilizer, volar splint (short arm ) Medical Decision Making - Medical Decision Making 61-year-old male presents for left wrist injury. At this time patient's x-ray does show severe osteoporosis. There is no obvious fracture have reviewed the patient's pain and discomfort there is concern. We did place patient has minimal have him follow-up with orthopedics. We did give patient pain medication. We discussed return parameters all his questions. He stated he understood and is negative plan. He will be discharged. - Radiology Data Radiology results: report reviewed, image reviewed Disposition Clinical Impression: Right wrist sprain Disposition: HOME SELF-CARE Condition: Stable Instructions: Wrist Injury (ED) Additional Instructions: Please use medication as discussed. Please follow up with family doctor if symptoms have not improved over the next two days. Please return to the emergency room if your symptoms increase or worsen or for any other concerns. Prescriptions: Hydrocodone/Acetaminophen [[place] 5-325] 1 each PO Q6HR PRN #20 tab PRN Reason: Pain Referrals: Jazmin Castaneda MD [Primary Care Provider] - 1-2 days Tonny Morgan MD [STAFF PHYSICIAN] - 1-2 days Time of Disposition: 00:44
--- NOTE | 2016-11-30 00:29 | XR ---
EXAM: XR Left Wrist Complete, 3 or More Views CLINICAL HISTORY: Reason: Pain TECHNIQUE: Frontal, lateral and oblique views of the left wrist. COMPARISON: No relevant prior studies available. FINDINGS: Bones/joints: Severe radiocarpal degenerative changes with joint space loss, osteophytes, subchondral cystic change, and carpal collapse. No acute fracture or malalignment. Soft tissues: Unremarkable. No radiopaque foreign body. IMPRESSION: Severe radiocarpal osteoarthritis.
== END 2016-11-30 01:02 | disposition home or self-care (01) ==
LOC: EC 23:44
DX: S63.501A Unspecified sprain of right wrist, initial encounter (principal); M81.0 Age-related osteoporosis without current pathological fracture; E78.5 Hyperlipidemia, unspecified; I11.0 Hypertensive heart disease with heart failure; E11.9 Type 2 diabetes mellitus without complications; N28.9 Disorder of kidney and ureter, unspecified; Z87.891 Personal history of nicotine dependence; Z79.82 Long term (current) use of aspirin; Z79.4 Long term (current) use of insulin; Z79.899 Other long term (current) drug therapy; Z87.19 Personal history of other diseases of the digestive system; Z99.2 Dependence on renal dialysis; X50.9XXA Other and unspecified overexertion or strenuous movements or postures, initial encounter; Y93.53 Activity, golf; Y92.39 Other specified sports and athletic area as the place of occurrence of the external cause
CPT/HCPCS: 29125; 99283

== ENCOUNTER → 2016-12-05 | Outpatient (CLI) | payer MEDICARE ==
[2016-12-05 13:37] LABS: C Reactive Protein 76.5 mg/L (<10.0); Calcium 9.1 mg/dL (8.4-10.2); Potassium 4.8 mmol/L (3.5-5.1); Total Bilirubin 0.9 mg/dL (0.2-1.3); Total Protein 5.9 g/dL (6.3-8.2)
[2016-12-05 13:54] LABS: Anisocytosis Slight; CH 20.9; HDW 3.72; HGB 10.6 gm/dL (13.0-17.5); Hypochromasia Marked; MCH 21.3 pg (25.0-35.0); MCHC 30.3 g/dL (31.0-37.0); MCV 70.3 fL (80.0-100.0); Microcytosis Marked; Poikilocytosis Slight; RBC 4.98 m/uL (4.30-5.90); RDW 18.9 % (11.5-15.5); WBC 7.3 k/uL (3.8-10.6)
[2016-12-05 14:41] LABS: Erythrocyte Sedimentation Rate 16 mm/hr (0-15)
== END | disposition home or self-care (01) ==
LOC: LABWHC1 13:11
PROVIDERS: ATTEND Internal Medicine Infectious Disease
DX: E13.621 Other specified diabetes mellitus with foot ulcer (principal)
CPT/HCPCS: 36415; 80053; 84134; 85027; 85652; 86140

== ENCOUNTER → 2016-12-08 | Outpatient (CLI) | payer MEDICARE ==
--- NOTE | 2016-12-08 16:45 | US ---
EXAMINATION TYPE: US venous doppler duplex LE RT DATE OF EXAM: 12/08/2016 2:09 PM COMPARISON: NONE CLINICAL HISTORY: 61-year-old male M79.604 PAIN IN RT LEG. TECHNIQUE: LOWER EXTREMITY VENOUS INSUFFICIENCY. Grayscale, color doppler, spectral doppler imaging performed of the deep veins of the lower extremities. SIDE PERFORMED: RIGHT FINDINGS: 1) Color flow is present and patency is documented in the following vessels. No DVT or SVT is noted . ? EIV ? Common Femoral Vein ? Deep Femoral Vein ? Femoral Vein ? Popliteal Vein ? Proximal Calf Veins: Not seen as the patient has large calves. ? Greater Saph Vein ? Upper Small Saph Vein 2) There is venous reflux noted at the following venous levels: No reflux seen IMPRESSION: 1. No evidence for DVT within the right lower extremity imaged from the groin to the knee. 2. No right lower extremity venous reflux seen.
--- NOTE | 2016-12-13 11:03 | P.ARTDOP ---
Arterial Doppler LOWER EXTREMITY ARTERIAL DOPPLER: DATE OF SERVICE: 12/08/2016 Reason for study: Right leg pain. Doppler waveforms: Multiphasic bilaterally throughout. Pulse volume recording: Normal configuration. Pressure gradients: None. Ankle-brachial indices: Be occluded. Toe pressures: 53 on the right, 124 on the left Impression: Normal flow patterns. Lack of ability to occlude at the ankle level suggest calcific wall disease, which does not affect distal flow..
== END | disposition home or self-care (01) ==
LOC: RADUSWWP 13:46
PROVIDERS: ATTEND Internal Medicine Infectious Disease
DX: M79.604 Pain in right leg (principal)
CPT/HCPCS: 93923

== ENCOUNTER → 2016-12-09 | Outpatient (CLI) | payer MEDICARE ==
--- NOTE | 2016-12-09 13:20 | MR ---
MR right foot HISTORY: Osteomyelitis Correlation to plain film 26 October 2016 Multiplanar multisequence imaging obtained through the right foot with attention to the forefoot There are extensive subcutaneous edema changes as well as edema within the musculature especially at the volar aspect of the foot compatible with myositis, no definite abscess. There is no marrow signal change to suggest osteomyelitis. Focal area of signal abnormality at the volar aspect of the first d igit at the level of the interphalangeal joint is present which may represent some focal cellulitis. Joint spaces appears maintained however. Soft tissue calcifications are noted on plain film suggestiv e of vascular calcification, diabetes. IMPRESSION: Cellulitis, myositis, no evident osteomyelitis or abscess formation. Hindfoot is not imag ed.
== END | disposition home or self-care (01) ==
LOC: RADMRIMAIN 10:18
PROVIDERS: ATTEND Internal Medicine Infectious Disease
DX: L03.031 Cellulitis of right toe (principal); M60.871 Other myositis, right ankle and foot; E13.621 Other specified diabetes mellitus with foot ulcer; M79.605 Pain in left leg

== ENCOUNTER → 2016-12-19 | Outpatient (CLI) | payer MEDICARE ==
[2016-12-19 13:52] LABS: Total Bilirubin 0.8 mg/dL (0.2-1.3)
== END | disposition home or self-care (01) ==
LOC: LABWHC1 13:12
PROVIDERS: ATTEND Family Medicine
DX: R11.0 Nausea (principal)
CPT/HCPCS: 36415; 82247; 84450; 84460

== ENCOUNTER → 2017-02-06 | Outpatient (CLI) | payer MEDICARE | END | disposition home or self-care (01) | LOC: LABWHC1 11:56 | PROVIDERS: ATTEND Internal Medicine Endocrinology, Diabetes & Metabolism | DX: E03.9 Hypothyroidism, unspecified (principal) | CPT/HCPCS: 36415; 84439; 84443 ==

== ENCOUNTER → 2017-02-09 | Outpatient (CLI) | payer MEDICARE | END | disposition home or self-care (01) | LOC: LABWHC1 10:05 | PROVIDERS: ATTEND Family Medicine | DX: M25.50 Pain in unspecified joint (principal); E11.9 Type 2 diabetes mellitus without complications | CPT/HCPCS: 36415; 83036; 84550 ==

== ENCOUNTER 2017-03-02 02:54 | Emergency (ER) | payer MEDICARE ==
[2017-03-02] MEDS ORDERED: ONDANSETRON 4 MG/2 ML VIAL IVP STA (03:33)
[2017-03-02] MEDS ORDERED: MORPHINE SULFATE 4 MG/ML SYRINGE IVP STA (03:33)
--- NOTE | 2017-03-02 03:34 | ED ---
Abdominal Pain HPI - General Source: patient, RN notes reviewed Mode of arrival: ambulatory Limitations: no limitations <Jeff Zhang - Last Filed: 03/02/17 03:32> <Pradeep Bhakta - Last Filed: 03/02/17 04:47> - General Chief Complaint: Abdominal Pain Stated Complaint: Abdominal Pain Time Seen by Provider: 03/02/17 03:27 - History of Present Illness Initial Comments: 61-year-old male presents emergency Department chief complaint of abdominal pain. Patient states has been going on for greater than 1 month. Patient states she is admitted in November for food poisoning is not one week in the hospital. Patient states that this pain is in his mid abdomen and is progressively worse. He states he normally takes hydrocodone at home and states that does help for the pain but states that tonight he cannot sleep anymore states that he come emergency department. Patient denies any vomiting states that some nausea no diarrhea no constipation this time. Denies any dysuria and states that he has actually little urine output which is normal for him. Patient states she has dialysis for his renal failure on Sunday and Sunday. Patient states his potassium was elevated and Sunday though is due for dialysis today. Patient has had no fever no chills no chest pain or shortness of breath. (Jeff Zhang) - Related Data Home Medications Medication Instructions Recorded Confirmed Aspirin [Adult Low Dose Aspirin EC] 81 mg PO DAILY 10/23/16 12/19/16 Atorvastatin [Lipitor] 10 mg PO HS 10/23/16 12/19/16 Calcium Acetate 2,668 mg PO TID-W/MEALS 10/23/16 12/19/16 Ergocalciferol (Vitamin D2) 50,000 unit PO ESPARZA 10/23/16 12/19/16 [Vitamin D2] Famotidine [Pepcid] 20 mg PO DAILY 10/23/16 12/19/16 Furosemide 40 mg PO BID 10/23/16 12/19/16 Insulin Detemir [Levemir Flextouch] 15 unit SQ HS 10/23/16 12/19/16 Insulin Detemir [Levemir Flextouch] 20 unit SQ AC-BRKFST 10/23/16 12/19/16 Levothyroxine Sodium [Synthroid] 50 mcg PO BID 10/23/16 12/19/16 Levothyroxine Sodium [Synthroid] 300 mcg PO DAILY 10/23/16 12/19/16 Metoprolol Tartrate 50 mg PO BID 10/23/16 12/19/16 Sodium Polystyrene Sulfonate [SPS] 50 gm PO MOTH 10/23/16 12/19/16 hydrALAZINE HCL 50 mg PO Q8H 10/23/16 12/19/16 Fexofenadine/Pseudoephedrine 25 mg PO DAILY 11/21/16 12/19/16 [Camila-D 24 Hour Tablet] Cinacalcet [Sensipar] 30 mg PO DIRECTED 12/05/16 12/19/16 Previous Rx's Medication Instructions Recorded HYDROcodone/APAP 10-325MG [[place] 1 each PO Q6H PRN #0 tab 10/27/16 10-325] Hydrocodone/Acetaminophen [[place] 1 each PO Q6HR PRN #20 tab 11/30/16 5-325] Allergies Allergy/AdvReac Type Severity Reaction Status Date / Time No Known Allergies Allergy Verified 12/19/16 14:23 Review of Systems ROS Other: All systems not noted in ROS Statement are negative. <Jeff Zhang - Last Filed: 03/02/17 03:32> ROS Other: All systems not noted in ROS Statement are negative. <Pradeep Bhakta - Last Filed: 03/02/17 04:47> ROS Statement: Those systems with pertinent positive or pertinent negative responses have been documented in the HPI. Past Medical History Past Medical History: Heart Failure, Diabetes Mellitus, Hyperlipidemia, Hypertension, Renal Disease Additional Past [facility] History / Comment(s[facility] 3 weeks ago for stomach virus History of Any Multi-Drug Resistant Organisms: None Reported Past Surgical History: Heart Catheterization With Stent, Orthopedic Surgery Additional Past Surgical History / Comment(s): left ankle, right hip rx, plate in right knee, last heart cath 2008, left arm graph for dialysis Past Anesthesia/Blood Transfusion Reactions: No Reported Reaction Date of Last Stent Placement:: 2008 Past Psychological History: No Psychological Hx Reported Smoking Status: Former smoker Past Alcohol Use History: None Reported Past Drug Use History: None Reported - Past Family History Mother Family Medical History: Congestive Heart Failure (CHF) Father Family Medical History: Congestive Heart Failure (CHF) Brother(s) Family Medical History: Congestive Heart Failure (CHF) <Jeff Zhang - Last Filed: 03/02/17 03:32> General Exam General appearance: alert, in no apparent distress Head exam: Present: atraumatic, normocephalic, normal inspection Respiratory exam: Present: normal lung sounds bilaterally. Absent: respiratory distress, wheezes, rales, rhonchi, stridor Cardiovascular Exam: Present: regular rate, normal rhythm, normal heart sounds. Absent: systolic murmur, diastolic murmur, rubs, gallop, clicks GI/Abdominal exam: Present: soft, tenderness (mild midabdominal tenderness), normal bowel sounds. Absent: distended, guarding, rebound, rigid Back exam: Absent: CVA tenderness (R), CVA tenderness (L) Skin exam: Present: warm, dry <Jeff Zhang - Last Filed: 03/02/17 03:32> Medical Decision Making - Lab Data Result diagrams: 03/02/17 03:24 03/02/17 03:24 <Pradeep Bhakta - Last Filed: 03/02/17 04:47> - Lab Data Lab Results 03/02/17 03/02/17 03/02/17 Range/Units 03:24 03:24 03:24 WBC 5.6 (3.8-10.6) k/uL RBC 5.59 (4.30-5.90) m/uL Hgb 11.8 L (13.0-17.5) gm/dL Hct 39.3 (39.0-53.0) % MCV 70.2 L (80.0-100.0) fL MCH 21.2 L (25.0-35.0) pg MCHC 30.2 L (31.0-37.0) g/dL RDW 20.9 H (11.5-15.5) % Plt Count 103 L (150-450) k/uL Neutrophils % 60 % Lymphocytes % 25 % Monocytes % 6 % Eosinophils % 5 % Basophils % 1 % Neutrophils # 3.3 (1.3-7.7) k/uL Lymphocytes # 1.4 (1.0-4.8) k/uL Monocytes # 0.3 (0-1.0) k/uL Eosinophils # 0.3 (0-0.7) k/uL Basophils # 0.1 (0-0.2) k/uL Hypochromasia Moderate Poikilocytosis Slight Anisocytosis Moderate Microcytosis Marked PT 11.2 (9.0-12.0) sec INR 1.1 (<1.2) APTT 25.4 (22.0-30.0) sec Sodium 134 L (137-145) mmol/L Potassium 5.8 H (3.5-5.1) mmol/L Chloride 91 L (98-107) mmol/L Carbon Dioxide 26 (22-30) mmol/L Anion Gap 17 mmol/L BUN 63 H (9-20) mg/dL Creatinine 8.90 H* (0.66-1.25) mg/dL Est GFR (MDRD) Af Amer 7 (>60 ml/min/1.73 sqM) Est GFR (MDRD) Non-Af 6 (>60 ml/min/1.73 sqM) Glucose 332 H (74-99) mg/dL Calcium 9.5 (8.4-10.2) mg/dL Phosphorus 4.2 (2.5-4.5) mg/dL Magnesium 1.9 (1.6-2.3) mg/dL Total Bilirubin 0.6 (0.2-1.3) mg/dL AST 13 L (17-59) U/L ALT 22 (21-72) U/L Alkaline Phosphatase 143 H (38-126) U/L Total Protein 6.2 L (6.3-8.2) g/dL Albumin 4.0 (3.5-5.0) g/dL Amylase <30 L (30-110) U/L Lipase 44 (23-300) U/L Disposition <Jeff Zhang - Last Filed: 03/02/17 03:32> <Pradeep Bhakta - Last Filed: 03/02/17 04:47> Clinical Impression: Abdominal pain, Hyperglycemia Disposition: HOME SELF-CARE Condition: Fair Instructions: Abdominal Pain (ED) Referrals: Jazmin Castaneda MD [Primary Care Provider] - 1-2 days
[2017-03-02 03:42] LABS: Anisocytosis Moderate; Basophils # (A) 0.1 k/uL (0-0.2); Basophils % (A) 1 %; CHCM 31.5; Eosinophils # (A) 0.3 k/uL (0-0.7); Eosinophils % (A) 5 %; HCT 39.3 % (39.0-53.0); HDW 3.57; HGB 11.8 gm/dL (13.0-17.5); Hypochromasia Moderate; Luc # (Auto) 0.17; Luc % (Auto) 3; Lymphocytes # (A) 1.4 k/uL (1.0-4.8); Lymphocytes % (A) 25 %; MCH 21.2 pg (25.0-35.0); MCHC 30.2 g/dL (31.0-37.0); MCV 70.2 fL (80.0-100.0); Mean Platelet Volume 7.2; Microcytosis Marked; Monocytes # (A) 0.3 k/uL (0-1.0); Monocytes % (A) 6 %; Neutrophils # (A) 3.3 k/uL (1.3-7.7); Neutrophils % (A) 60 %; Poikilocytosis Slight; RBC 5.59 m/uL (4.30-5.90); RDW 20.9 % (11.5-15.5); WBC 5.6 k/uL (3.8-10.6)
[2017-03-02 03:53] LABS: INR 1.1 (<1.2); Partial Thromboplastin Time 25.4 sec (22.0-30.0); Prothrombin Time 11.2 sec (9.0-12.0)
[2017-03-02 03:54] LABS: ALT 22 U/L (21-72); AST 13 U/L (17-59); Alkaline Phosphatase 143 U/L (38-126); Amylase <30 U/L (30-110); Anion Gap 17 mmol/L; Blood Urea Nitrogen 63 mg/dL (9-20); Calcium 9.5 mg/dL (8.4-10.2); Carbon Dioxide 26 mmol/L (22-30); Chloride 91 mmol/L (98-107); Glucose 332 mg/dL (74-99); Magnesium 1.9 mg/dL (1.6-2.3); Phosphorous 4.2 mg/dL (2.5-4.5); Potassium 5.8 mmol/L (3.5-5.1); Sodium 134 mmol/L (137-145); Total Bilirubin 0.6 mg/dL (0.2-1.3); Total Protein 6.2 g/dL (6.3-8.2)
[2017-03-02 03:59] LABS: Non-African American GFR(MDRD) 6 (>60 ml/min/1.73 sqM)
--- NOTE | 2017-03-02 04:32 | XR ---
EXAM: XR Abdomen, 1 View CLINICAL HISTORY: Reason: abdominal pain TECHNIQUE: Frontal supine view of the abdomen/pelvis. COMPARISON: 10/23/2016 FINDINGS: Gastrointestinal tract: Unremarkable. No dilation. Splenomegaly is redemonstrated. Bones/joints: Right total hip arthroplasty is again seen. Stable osseous findings. IMPRESSION: No acute findings.
[2017-03-02] MEDS ORDERED: INSULIN REGULAR 100 UNIT/ML VIAL SQ STA (04:45)
[2017-03-02 05:03] LABS: Appearance,Urine Clear (Clear); Bilirubin,Urine Negative (Negative); Glucose,Urine (UA) 4+ (Negative); Ketones,Urine Negative (Negative); Leukocyte Esterase,Urine Negative (Negative); Mucus,Urine Rare /hpf; Nitrite,Urine Negative (Negative); PH, Urine 8.5 (5.0-8.0); Particle Count 218; Protein,Urine 1+ (Negative); Specific Gravity,Urine 1.005 (1.001-1.035); Squamous Epithelial Cell,Urine <1 /hpf (0-4); UA Billing (MACRO vs. MICRO) MICRO; Urobilinogen,Urine <2.0 mg/dL (<2.0); WBC,Urine 1 /hpf (0-5)
[2017-03-02 05:08] VITALS: BP 144/69; PULSE 69; RESP 16; TEMP 97.9
== END 2017-03-02 05:06 | disposition home or self-care (01) ==
LOC: EC 02:54
DX: E11.65 Type 2 diabetes mellitus with hyperglycemia (principal); R10.9 Unspecified abdominal pain; R11.0 Nausea; N19 Unspecified kidney failure; E78.5 Hyperlipidemia, unspecified; I11.0 Hypertensive heart disease with heart failure; I50.9 Heart failure, unspecified; Z87.891 Personal history of nicotine dependence; Z79.4 Long term (current) use of insulin; Z79.82 Long term (current) use of aspirin; Z79.899 Other long term (current) drug therapy; Z99.2 Dependence on renal dialysis; Z87.19 Personal history of other diseases of the digestive system
CPT/HCPCS: 36415; 80053; 82150; 83690; 83735; 84100; 85025; 85610; 85730; 81001; 74000; 99284; 96374; 96375; J2270; J2405

== ENCOUNTER 2017-08-29 10:15 | Emergency (ER) | payer MEDICARE, BC ==
[2017-08-29 10:34] VITALS: TEMP 98.5
--- NOTE | 2017-08-29 11:48 | XR ---
EXAMINATION TYPE: XR femur RT DATE OF EXAM: 08/29/2017 CLINICAL HISTORY: Pain TECHNIQUE: Two views of the right femur are obtained. COMPARISON: None FINDINGS: There is no acute fracture or dislocation seen in the right femur. Postsurgical changes ar e seen. Vascular calcifications and diffuse osteopenia noted. Severe arthropathy of the knee joint. S evere arthropathy patellofemoral joint. IMPRESSION: Postoperative changes
--- NOTE | 2017-08-29 11:49 | XR ---
EXAMINATION TYPE: XR Hip Complete RT DATE OF EXAM: 08/29/2017 COMPARISON: NONE HISTORY: Pain TECHNIQUE: 2 views submitted FINDINGS: There is no evidence of erosive change or acute fracture. Postsurgical changes are noted. Vascular ca lcification and diffuse osteopenia noted. Soft tissue ossification lateral to the acetabulum. Soft ti ssue calcification seen lateral to the iliac bone. IMPRESSION: 1. No evidence of acute fracture or dislocation.
[2017-08-29] MEDS ORDERED: MORPHINE SULFATE 4 MG/ML SYRINGE IM STA (11:55)
--- NOTE | 2017-08-29 11:56 | ED ---
General Adult HPI - General Chief complaint: Extremity Injury, Lower Stated complaint: Fall Time Seen by Provider: 08/29/17 10:57 Source: patient, RN notes reviewed, old records reviewed Mode of arrival: wheelchair Limitations: physical limitation - History of Present Illness Initial comments: This is a 62-year-old male the ER with right hip pain. Patient has history of right hip replacement. Patient's fall yesterday and is a continued pain throughout the day. No traumatic injury noted. Patient can bear weight but is having pain with that activity. Doon at home for pain which is helping - Related Data Home Medications Medication Instructions Recorded Confirmed Aspirin [Adult Low Dose Aspirin EC] 81 mg PO DAILY 10/23/16 08/29/17 Atorvastatin [Lipitor] 10 mg PO HS 10/23/16 08/29/17 Calcium Acetate 2,668 mg PO TID-W/MEALS 10/23/16 08/29/17 Ergocalciferol (Vitamin D2) 50,000 unit PO Q14D 10/23/16 08/29/17 [Vitamin D2] Famotidine [Pepcid] 20 mg PO DAILY 10/23/16 08/29/17 Furosemide 40 mg PO BID PRN 10/23/16 08/29/17 Insulin Detemir [Levemir Flextouch] 17 unit SQ HS 10/23/16 08/29/17 Levothyroxine Sodium [Synthroid] 50 mcg PO BID 10/23/16 08/29/17 Levothyroxine Sodium [Synthroid] 300 mcg PO DAILY 10/23/16 08/29/17 Metoprolol Tartrate 50 mg PO BID 10/23/16 08/29/17 Sodium Polystyrene Sulfonate [SPS] 50 gm PO MOTH 10/23/16 08/29/17 hydrALAZINE HCL 50 mg PO DAILY 10/23/16 08/29/17 Cinacalcet [Sensipar] 30 mg PO MOFR 12/05/16 08/29/17 Cyanocobalamin (Vitamin B-12) 1,000 mcg PO DAILY 08/29/17 08/29/17 [Vitamin B-12] Folic Acid 1 mg PO DAILY 08/29/17 08/29/17 Gabapentin [Neurontin] 300 mg PO TID 08/29/17 08/29/17 Insulin Aspart [NovoLOG Flexpen] 10 units SQ AC-BRKFST 08/29/17 08/29/17 Insulin Aspart [NovoLOG Flexpen] 12 units SQ AC-SUPPER 08/29/17 08/29/17 Insulin Aspart [NovoLOG Flexpen] 16 units SQ AC-LUNCH 08/29/17 08/29/17 Magnebind 300mg 300 mg PO TID-W/MEALS 08/29/17 08/29/17 Magnesium Oxide 400 mg PO DAILY 08/29/17 08/29/17 Pyridoxine [Vitamin B-6] 50 mg PO DAILY 08/29/17 08/29/17 diphenhydrAMINE [Benadryl] 25 mg PO DAILY 08/29/17 08/29/17 Allergies Allergy/AdvReac Type Severity Reaction Status Date / Time No Known Allergies Allergy Verified 08/29/17 11:02 Review of Systems ROS Statement: Those systems with pertinent positive or pertinent negative responses have been documented in the HPI. ROS Other: All systems not noted in ROS Statement are negative. Past Medical History Past Medical History: Heart Failure, Diabetes Mellitus, Hyperlipidemia, Hypertension, Renal Disease Additional Past Medical History / Comment(s): [facility] was admitted 3 weeks ago for stomach virus History of Any Multi-Drug Resistant Organisms: None Reported Past Surgical History: Heart Catheterization With Stent, Orthopedic Surgery Additional Past Surgical History / Comment(s): left ankle, right hip rx, plate in right knee, last heart cath 2008, left arm graph for dialysis Past Anesthesia/Blood Transfusion Reactions: No Reported Reaction Date of Last Stent Placement:: 2008 Past Psychological History: No Psychological Hx Reported Smoking Status: Former smoker Past Alcohol Use History: None Reported Past Drug Use History: None Reported - Past Family History Mother Family Medical History: Congestive Heart Failure (CHF) Father Family Medical History: Congestive Heart Failure (CHF) Brother(s) Family Medical History: Congestive Heart Failure (CHF) General Exam Limitations: physical limitation General appearance: alert, in no apparent distress Head exam: Present: atraumatic, normocephalic, normal inspection Eye exam: Present: normal appearance, PERRL, EOMI. Absent: scleral icterus, conjunctival injection, periorbital swelling ENT exam: Present: normal exam, mucous membranes moist Neck exam: Present: normal inspection. Absent: tenderness, meningismus, lymphadenopathy Respiratory exam: Present: normal lung sounds bilaterally. Absent: respiratory distress, wheezes, rales, rhonchi, stridor Cardiovascular Exam: Present: regular rate, normal rhythm, normal heart sounds. Absent: systolic murmur, diastolic murmur, rubs, gallop, clicks GI/Abdominal exam: Present: soft, normal bowel sounds. Absent: distended, tenderness, guarding, rebound, rigid Extremities exam: Present: normal inspection, full ROM, normal capillary refill. Absent: tenderness, pedal edema, joint swelling, calf tenderness Back exam: Present: normal inspection Neurological exam: Present: alert, oriented X3, CN II-XII intact Psychiatric exam: Present: normal affect, normal mood Skin exam: Present: warm, dry, intact, normal color. Absent: rash Course Vital Signs 08/29/17 08/29/17 10:30 12:07 Temperature 98.5 F Pulse Rate 92 94 Respiratory 16 18 Rate Blood Pressure 104/65 139/83 O2 Sat by Pulse 96 95 Oximetry - Reevaluation(s) Reevaluation #1: Patient is able to ambulate without assistance Medical Decision Making - Medical Decision Making 58 female the ER for evaluation of right hip pain sprain, right leg pain. No traumatic injury noted. Patient can be discharged home - Radiology Data Radiology results: report reviewed (X-ray right hip right femur negative for traumatic injury), image reviewed Disposition Clinical Impression: Fall, Right leg pain Disposition: HOME SELF-CARE Condition: Good Instructions: Leg Pain (ED) Referrals: Jazmin Castaneda MD [Primary Care Provider] - 1-2 days
[2017-08-29] MEDS ORDERED: IBUPROFEN 600 MG TAB PO STA (12:02)
[2017-08-29 12:08] VITALS: BP 139/83; PULSE 94; RESP 18
== END 2017-08-29 12:08 | disposition home or self-care (01) ==
LOC: EC 10:15
DX: M79.661 Pain in right lower leg (principal); I11.0 Hypertensive heart disease with heart failure; I50.9 Heart failure, unspecified; E11.9 Type 2 diabetes mellitus without complications; E78.5 Hyperlipidemia, unspecified; Z87.891 Personal history of nicotine dependence; Z96.641 Presence of right artificial hip joint; Z98.890 Other specified postprocedural states; Z79.4 Long term (current) use of insulin; Z79.82 Long term (current) use of aspirin; Z79.899 Other long term (current) drug therapy; W01.0XXA Fall on same level from slipping, tripping and stumbling without subsequent striking against object, initial encounter; Y92.009 Unspecified place in unspecified non-institutional (private) residence as the place of occurrence of the external cause
CPT/HCPCS: 73502; 99284

== ENCOUNTER 2017-12-07 22:43 | Emergency (ER) | payer MEDICARE, BC ==
[2017-12-07] MEDS ORDERED: ONDANSETRON 4 MG/2 ML VIAL IVP STA (23:53)
--- NOTE | 2017-12-07 23:55 | ED ---
Abdominal Pain HPI - General Chief Complaint: Abdominal Pain Stated Complaint: Abdomial Pain/Nausea Time Seen by Provider: 12/07/17 23:41 Source: patient, RN notes reviewed Mode of arrival: wheelchair Limitations: no limitations - History of Present Illness Initial Comments: This is a 62-year-old male who presents to the emergency department with chief complaint of abdominal pain and nausea. Patient states that he is a renal dialysis patient. He states that this evening at approximately 6 PM he developed a mid abdominal achiness and nausea. He denies any vomiting. Denies constipation or diarrhea. He states that he did have 2 normal bowel movements prior to arrival and that the pain did not go away. He states that it has decreased slightly. He states that he took a dose of Zofran but this did not help the nausea. Patient denies fevers or chills, chest pain or shortness of breath. - Related Data Home Medications Medication Instructions Recorded Confirmed Aspirin [Adult Low Dose Aspirin EC] 81 mg PO DAILY 10/23/16 12/07/17 Atorvastatin [Lipitor] 10 mg PO HS 10/23/16 12/07/17 Calcium Acetate 2,668 mg PO TID-W/MEALS 10/23/16 12/07/17 Ergocalciferol (Vitamin D2) 50,000 unit PO Q14D 10/23/16 12/07/17 [Vitamin D2] Famotidine [Pepcid] 20 mg PO DAILY 10/23/16 12/07/17 Furosemide 40 mg PO BID 10/23/16 12/07/17 Insulin Detemir [Levemir Flextouch] 18 unit SQ HS 10/23/16 12/07/17 Levothyroxine Sodium [Synthroid] 50 mcg PO BID 10/23/16 12/07/17 Levothyroxine Sodium [Synthroid] 300 mcg PO DAILY 10/23/16 12/07/17 Metoprolol Tartrate 50 mg PO BID 10/23/16 12/07/17 Sodium Polystyrene Sulfonate [SPS] 50 gm PO MOTUWETH 10/23/16 12/07/17 hydrALAZINE HCL 50 mg PO DAILY 10/23/16 12/07/17 Cinacalcet [Sensipar] 30 mg PO MOFR 12/05/16 12/07/17 Cyanocobalamin (Vitamin B-12) 1,000 mcg PO DAILY 08/29/17 12/07/17 [Vitamin B-12] Gabapentin [Neurontin] 300 mg PO TID 08/29/17 12/07/17 Insulin Aspart [NovoLOG Flexpen] 10 units SQ AC-BRKFST 08/29/17 12/07/17 Insulin Aspart [NovoLOG Flexpen] 12 units SQ AC-SUPPER 08/29/17 12/07/17 Insulin Aspart [NovoLOG Flexpen] 18 units SQ AC-LUNCH 08/29/17 12/07/17 Magnebind 300mg 300 mg PO TID-W/MEALS 08/29/17 12/07/17 Pyridoxine [Vitamin B-6] 100 mg PO DAILY 08/29/17 12/07/17 diphenhydrAMINE [Benadryl] 25 mg PO DAILY 08/29/17 12/07/17 Folic Acid 0.8 mg PO DAILY 12/07/17 12/07/17 Allergies Allergy/AdvReac Type Severity Reaction Status Date / Time No Known Allergies Allergy Verified 12/07/17 23:17 Review of Systems ROS Statement: Those systems with pertinent positive or pertinent negative responses have been documented in the HPI. ROS Other: All systems not noted in ROS Statement are negative. Past Medical History Past Medical History: Heart Failure, Diabetes Mellitus, Hyperlipidemia, Hypertension, Renal Disease Additional Past Medical History / Comment(s): [facility] was admitted 3 weeks ago for stomach virus History of Any Multi-Drug Resistant Organisms: None Reported Past Surgical History: Heart Catheterization With Stent, Orthopedic Surgery Additional Past Surgical History / Comment(s): left ankle, right hip rx, plate in right knee, last heart cath 2008, left arm graph for dialysis Past Anesthesia/Blood Transfusion Reactions: No Reported Reaction Date of Last Stent Placement:: 2008 Past Psychological History: No Psychological Hx Reported Smoking Status: Former smoker Past Alcohol Use History: None Reported Past Drug Use History: None Reported - Past Family History Mother Family Medical History: Congestive Heart Failure (CHF) Father Family Medical History: Congestive Heart Failure (CHF) Brother(s) Family Medical History: Congestive Heart Failure (CHF) General Exam - General Exam Comments Initial Comments: General: Awake and alert, well-developed; in no apparent distress. HEENT: Head atraumatic, normocephalic. Pupils are equal, round and reactive to light. Extraocular movements intact. Oropharynx moist without erythema or exudate. Neck: Supple. Normal ROM. Cardiovascular: Regular rate and rhythm. No murmurs, rubs or gallops. Chest symmetrical. Respiratory: Lungs clear to auscultation bilaterally. No wheezes, rales or rhonchi. Normal respiratory effort with no use of accessory muscles. Abdomen: Soft, non-distended. Mild generalized tenderness on palpation. No rigidity, rebound or guarding. Normal bowel sounds in all 4 quadrants. Musculoskeletal: Normal ROM, no tenderness bilateral upper and lower extremities. Ambulating normally. Skin: [place], warm and dry without rashes or lesions. Neurological: Alert and oriented x3. CN II-XII grossly intact. Speech is fluent and answers are appropriate. No focal neuro deficits. Psychiatric: Normal mood and affect. No overt signs of depression or anxiety noted. Limitations: no limitations Course Vital Signs 12/07/17 12/07/17 12/08/17 22:56 22:58 00:10 Temperature 97.4 F L Pulse Rate 92 81 82 Respiratory 18 16 16 Rate Blood Pressure 91/55 94/52 98/56 O2 Sat by Pulse 94 L 96 93 L Oximetry Medical Decision Making - Medical Decision Making This is a 62-year-old male with chronic renal failure who presents to the emergency department with chief complaint of abdominal pain and nausea. Patient states that he frequently gets abdominal pain and nausea and believes it is related to his dialysis. On presentation, patient's vital signs are stable and he is in no acute distress. Abdomen is soft and mildly tender. CBC revealed a hemoglobin of 12.7, but this is consistent with previous labs. CMP revealed a potassium of 5.6, creatinine of 6.5 and BUN of 34. These are also consistent with previous laboratories. Computed tomography scan of the abdomen and pelvis was obtained and revealed no evidence for acute abdomen or pelvis. Patient states that his symptoms have improved. He will be discharged home at this time. He is in agreement and voices understanding. All questions answered. - Lab Data Result diagrams: 12/07/17 23:27 12/07/17 23:27 Lab Results 12/07/17 12/07/17 12/07/17 Range/Units 23:27 23:27 23:27 WBC 8.2 (3.8-10.6) k/uL RBC 5.76 (4.30-5.90) m/uL Hgb 12.7 L (13.0-17.5) gm/dL Hct 40.5 (39.0-53.0) % MCV 70.3 L (80.0-100.0) fL MCH 22.0 L (25.0-35.0) pg MCHC 31.3 (31.0-37.0) g/dL RDW 20.4 H (11.5-15.5) % Plt Count 159 (150-450) k/uL Neutrophils % 57 % Lymphocytes % 24 % Monocytes % 11 % Eosinophils % 4 % Basophils % 1 % Neutrophils # 4.7 (1.3-7.7) k/uL Lymphocytes # 1.9 (1.0-4.8) k/uL Monocytes # 0.9 (0-1.0) k/uL Eosinophils # 0.3 (0-0.7) k/uL Basophils # 0.1 (0-0.2) k/uL Hypochromasia Moderate Poikilocytosis Slight Anisocytosis Moderate Microcytosis Marked PT 11.1 (9.0-12.0) sec INR 1.2 H (<1.2) APTT 23.8 (22.0-30.0) sec Sodium 137 (137-145) mmol/L Potassium 5.6 H (3.5-5.1) mmol/L Chloride 90 L (98-107) mmol/L Carbon Dioxide 28 (22-30) mmol/L Anion Gap 19 mmol/L BUN 34 H (9-20) mg/dL Creatinine 6.50 H* (0.66-1.25) mg/dL Est GFR (CKD-EPI)AfAm 10 (>60 ml/min/1.73 sqM) Est GFR (CKD-EPI)NonAf 8 (>60 ml/min/1.73 sqM) Glucose 180 H (74-99) mg/dL Calcium 9.4 (8.4-10.2) mg/dL Total Bilirubin 0.7 (0.2-1.3) mg/dL AST 28 (17-59) U/L ALT 31 (21-72) U/L Alkaline Phosphatase 137 H (38-126) U/L Total Protein 6.5 (6.3-8.2) g/dL Albumin 4.3 (3.5-5.0) g/dL Amylase 45 (30-110) U/L Lipase 34 (23-300) U/L - Radiology Data Radiology results: report reviewed X-ray KUB impression: Nonacute abdomen. No change. CT abdomen and pelvis without contrast impression: Renal cortical cysts. Renal atrophy. No renal obstruction. Atherosclerotic vascular disease. Small calcified gallstones. No sign of an acute abdomen and pelvis. There is stable splenomegaly. Spleen measures 15 cm. Disposition Clinical Impression: Abdominal pain, Nausea & vomiting Disposition: HOME SELF-CARE Condition: Good Instructions: Abdominal Pain (ED) Additional Instructions: Please follow up with primary care provider within 1-2 days. Return to emergency department if symptoms should worsen or any concerns arise. Is patient prescribed a controlled substance at d/c from ED?: No Referrals: Jazmin Castaneda MD [Primary Care Provider] - 1-2 days Time of Disposition: 02:26
[2017-12-08 00:04] LABS: Anisocytosis Moderate; Basophils # (A) 0.1 k/uL (0-0.2); Basophils % (A) 1 %; Eosinophils # (A) 0.3 k/uL (0-0.7); Eosinophils % (A) 4 %; HCT 40.5 % (39.0-53.0); HGB 12.7 gm/dL (13.0-17.5); Hypochromasia Moderate; Lymphocytes # (A) 1.9 k/uL (1.0-4.8); Lymphocytes % (A) 24 %; MCHC 31.3 g/dL (31.0-37.0); MCV 70.3 fL (80.0-100.0); Microcytosis Marked; Monocytes # (A) 0.9 k/uL (0-1.0); Monocytes % (A) 11 %; Neutrophils # (A) 4.7 k/uL (1.3-7.7); Neutrophils % (A) 57 %; Platelet Count 159 k/uL (150-450); Poikilocytosis Slight; RBC 5.76 m/uL (4.30-5.90); RDW 20.4 % (11.5-15.5); WBC 8.2 k/uL (3.8-10.6)
[2017-12-08 00:13] LABS: INR 1.2 (<1.2); Partial Thromboplastin Time 23.8 sec (22.0-30.0); Prothrombin Time 11.1 sec (9.0-12.0)
[2017-12-08 00:14] LABS: Albumin 4.3 g/dL (3.5-5.0); Calcium 9.4 mg/dL (8.4-10.2); Potassium 5.6 mmol/L (3.5-5.1); Total Bilirubin 0.7 mg/dL (0.2-1.3); Total Protein 6.5 g/dL (6.3-8.2)
--- NOTE | 2017-12-08 00:14 | XR ---
EXAMINATION TYPE: XR KUB DATE OF EXAM: 12/08/2017 COMPARISON: 03/02/2017 HISTORY: Abdominal pain TECHNIQUE: 2 views FINDINGS: There is no sign of intestinal obstruction or pneumoperitoneum. Fecal pattern is normal. Lynn ng bases are clear of consolidation. There is no pleural effusion. There is right hip prosthesis. IMPRESSION: Nonacute abdomen. No change.
[2017-12-08] MEDS ORDERED: MORPHINE SULFATE 4 MG/ML SYRINGE IVP STA (01:08)
--- NOTE | 2017-12-08 01:54 | CT ---
EXAMINATION TYPE: CT abdomen pelvis wo con DATE OF EXAM: 12/08/2017 COMPARISON: 10/22/2016 HISTORY: Diffuse abd pain CT DLP: 1429.30 mGycm Automated exposure control for dose reduction was used. TECHNIQUE: Helical acquisition of images was performed from the lung bases through the pelvis. FINDINGS: The lung bases are clear of infiltrate. There is no pleural effusion. There is no pericardial effusio n. Liver shows no focal defect. There are small calcified gallstones. There is no evidence of a splenic mass. There is no evidence of pancreatic mass. Bile ducts are not dilated. There is 8 cm cortical cys t on the posterior left kidney. There are other smaller cortical cysts. There is no hydronephrosis. T here is cortical thinning. There is no retroperitoneal adenopathy. Abdominal aorta is atheromatous. I see no intestinal wall thickening. There are no dilated loops. Bladder is almost empty. There is rig ht hip prosthesis. There are spondylotic changes in the lumbar spine. There is a first-degree L5-S1 s pondylolisthesis with L5 spondylolysis. There are multiple Schmorl nodes. Appendix appears normal. Th ere is no evidence of a hernia. There is no evidence of free air or ascites. IMPRESSION: RENAL CORTICAL CYSTS. RENAL ATROPHY. NO RENAL OBSTRUCTION. ATHEROSCLEROTIC VASCULAR DISEASE. SMALL CA LCIFIED GALLSTONES. NO SIGN OF AN ACUTE ABDOMEN AND PELVIS. THERE IS STABLE SPLENOMEGALY. SPLEEN RUBI URES 15 CM.
[2017-12-08 02:41] VITALS: BP 100/66; PULSE 60; RESP 18; TEMP 97.6
== END 2017-12-08 02:41 | disposition home or self-care (01) ==
LOC: EC 22:43
DX: R10.9 Unspecified abdominal pain (principal); R11.2 Nausea with vomiting, unspecified; N28.1 Cyst of kidney, acquired; N26.1 Atrophy of kidney (terminal); I70.90 Unspecified atherosclerosis; K80.20 Calculus of gallbladder without cholecystitis without obstruction; R16.1 Splenomegaly, not elsewhere classified; I13.0 Hypertensive heart and chronic kidney disease with heart failure and stage 1 through stage 4 chronic kidney disease, or unspecified chronic kidney disease; I50.9 Heart failure, unspecified; N18.9 Chronic kidney disease, unspecified; E78.5 Hyperlipidemia, unspecified; E11.22 Type 2 diabetes mellitus with diabetic chronic kidney disease; Z87.891 Personal history of nicotine dependence; Z79.4 Long term (current) use of insulin; Z79.82 Long term (current) use of aspirin; Z79.899 Other long term (current) drug therapy; Z87.19 Personal history of other diseases of the digestive system; Z99.2 Dependence on renal dialysis
CPT/HCPCS: 36415; 80053; 82150; 83690; 85025; 85610; 85730; 74018; 74176; 99284; 96374; 96375; J2270; J2405

== ENCOUNTER → 2018-01-11 | Outpatient (CLI) | payer MEDICARE, BC ==
[2018-01-11 15:59] LABS: Rheumatoid Factor 10 IU/mL (0-15)
[2018-01-11 16:55] LABS: Hepatitis A Antibody IgM Non-Reactive (Non-Reactive); Hepatitis B Core IgM Non-Reactive (Non-Reactive)
[2018-01-11 17:51] LABS: Cyclic Citrullinated Pep IgG NEGATIVE (NEGATIVE)
== END | disposition home or self-care (01) ==
LOC: LABWHC1 10:11
PROVIDERS: ATTEND Family Medicine
DX: M25.50 Pain in unspecified joint (principal)
CPT/HCPCS: 36415; 80074; 86200; 86431

== ENCOUNTER 2018-01-14 23:17 | Emergency (ER) | payer MEDICARE, BC ==
[2018-01-14 23:22] VITALS: TEMP 98.9
[2018-01-14] MEDS ORDERED: ACETAMINOPHEN TAB 500 MG TAB PO STA (23:39)
[2018-01-14] MEDS ORDERED: IPRATROPIUM-ALBUTEROL 3 ML NEB INHALATION STA (23:40)
--- NOTE | 2018-01-14 23:49 | ED ---
URI HPI - General Chief Complaint: Upper Respiratory Infection Stated Complaint: Cough Time Seen by Provider: 01/14/18 23:31 Source: patient, RN notes reviewed Mode of arrival: ambulatory Limitations: no limitations - History of Present Illness Initial Comments: This is a 62-year-old male who presents to the emergency department with chief complaint of cough. Patient states that he's been having a nonproductive cough for the past 5 days. He states he was evaluated by his primary care provider on where a chest x-ray was obtained. Patient states he is unsure of the results of the chest x-ray. He states he was started on azithromycin and took his first dose today. He denies any increase in his cough but states that it is persistent and that he is having difficulty sleeping due to the cough. He denies any chest pain shortness of breath, fevers or chills. Patient does state that he is on dialysis. He states that his last dialysis was this morning and that it was finished thoroughly without complication. Denies abdominal pain, nausea or vomiting. - Related Data Home Medications Medication Instructions Recorded Confirmed Aspirin [Adult Low Dose Aspirin EC] 81 mg PO DAILY 10/23/16 12/07/17 Atorvastatin [Lipitor] 10 mg PO HS 10/23/16 12/07/17 Calcium Acetate 2,668 mg PO TID-W/MEALS 10/23/16 12/07/17 Ergocalciferol (Vitamin D2) 50,000 unit PO Q14D 10/23/16 12/07/17 [Vitamin D2] Famotidine [Pepcid] 20 mg PO DAILY 10/23/16 12/07/17 Furosemide 40 mg PO BID 10/23/16 12/07/17 Insulin Detemir [Levemir Flextouch] 18 unit SQ HS 10/23/16 12/07/17 Levothyroxine Sodium [Synthroid] 50 mcg PO BID 10/23/16 12/07/17 Levothyroxine Sodium [Synthroid] 300 mcg PO DAILY 10/23/16 12/07/17 Metoprolol Tartrate 50 mg PO BID 10/23/16 12/07/17 Sodium Polystyrene Sulfonate [SPS] 50 gm PO MOTUWETH 10/23/16 12/07/17 hydrALAZINE HCL 50 mg PO DAILY 10/23/16 12/07/17 Cinacalcet [Sensipar] 30 mg PO MOFR 12/05/16 12/07/17 Cyanocobalamin (Vitamin B-12) 1,000 mcg PO DAILY 08/29/17 12/07/17 [Vitamin B-12] Gabapentin [Neurontin] 300 mg PO TID 08/29/17 12/07/17 Insulin Aspart [NovoLOG Flexpen] 10 units SQ AC-BRKFST 08/29/17 12/07/17 Insulin Aspart [NovoLOG Flexpen] 12 units SQ AC-SUPPER 08/29/17 12/07/17 Insulin Aspart [NovoLOG Flexpen] 18 units SQ AC-LUNCH 08/29/17 12/07/17 Magnebind 300mg 300 mg PO TID-W/MEALS 08/29/17 12/07/17 Pyridoxine [Vitamin B-6] 100 mg PO DAILY 08/29/17 12/07/17 diphenhydrAMINE [Benadryl] 25 mg PO DAILY 08/29/17 12/07/17 Folic Acid 0.8 mg PO DAILY 12/07/17 12/07/17 Allergies Allergy/AdvReac Type Severity Reaction Status Date / Time No Known Allergies Allergy Verified 01/14/18 23:21 Review of Systems ROS Statement: Those systems with pertinent positive or pertinent negative responses have been documented in the HPI. ROS Other: All systems not noted in ROS Statement are negative. Past Medical History Past Medical History: Heart Failure, Diabetes Mellitus, Hyperlipidemia, Hypertension, Renal Disease Additional Past Medical History / Comment(s): dailysis MWFr. was admitted 3 weeks ago for stomach virus History of Any Multi-Drug Resistant Organisms: None Reported Past Surgical History: Heart Catheterization With Stent, Orthopedic Surgery Additional Past Surgical History / Comment(s): left ankle, right hip rx, plate in right knee, last heart cath 2008, left arm graph for dialysis Past Anesthesia/Blood Transfusion Reactions: No Reported Reaction Date of Last Stent Placement:: 2008 Past Psychological History: No Psychological Hx Reported Smoking Status: Former smoker Past Alcohol Use History: None Reported Past Drug Use History: None Reported - Past Family History Mother Family Medical History: Congestive Heart Failure (CHF) Father Family Medical History: Congestive Heart Failure (CHF) Brother(s) Family Medical History: Congestive Heart Failure (CHF) General Exam - General Exam Comments Initial Comments: General: Awake and alert, well-developed; in no apparent distress. Dry sounding cough. Does not appear acutely ill. HEENT: Head atraumatic, normocephalic. Pupils are equal, round and reactive to light. Extraocular movements intact. Oropharynx moist without erythema or exudate. Neck: Supple. Normal ROM. Cardiovascular: Regular rate and rhythm. No murmurs, rubs or gallops. Chest symmetrical. Respiratory: Normal respiratory effort with no use of accessory muscles. No wheezes, rales or rhonchi. Breath sounds are slightly diminished throughout and chest sounds tight. Musculoskeletal: Normal ROM, no tenderness bilateral upper and lower extremities. Ambulating normally. Skin: [place], warm and dry. Neurological: Alert and oriented x3. CN II-XII grossly intact. Speech is fluent and answers are appropriate. No focal neuro deficits. Psychiatric: Normal mood and affect. No overt signs of depression or anxiety noted. Limitations: no limitations Course Vital Signs 01/14/18 01/14/18 01/14/18 23:19 23:25 23:49 Temperature 98.9 F Pulse Rate 99 100 Respiratory 22 16 Rate Blood Pressure 151/73 O2 Sat by Pulse 98 Oximetry 01/14/18 23:56 Temperature Pulse Rate 102 H Respiratory Rate Blood Pressure O2 Sat by Pulse Oximetry Medical Decision Making - Medical Decision Making This is a 62-year-old male, currently on dialysis, who presents to the emergency department chief complaint of cough for the past 5 days. Patient did see his primary care provider this past and had a chest x-ray performed. Patient is unsure of the results of the chest x-ray but was prescribed azithromycin. Patient took 1 dose of the azithromycin so far. Patient presents to the emergency department because he is complaining that he is having difficulty sleeping due to the persistent cough. He states that cough is nonproductive. He states he is a nonsmoker. Chest x-ray was obtained which revealed mild perihilar infiltrates without pleural effusion. Patient was given a breathing treatment while in the emergency department. Lung sounds have improved and cough is no longer as persistent. Recommended finishing the course of azithromycin. Recommended following up with his primary care provider. Patient's vital signs are stable and he is in no acute distress. He will be discharged home at this time. All questions answered. - Radiology Data Radiology results: report reviewed Chest x-ray impression:. Mild perihilar interstitial infiltrates. Atheromatous aorta. No heart failure. Disposition Clinical Impression: Pulmonary infiltrate on chest x-ray Disposition: HOME SELF-CARE Condition: Good Instructions: Community Acquired Pneumonia (ED) Additional Instructions: Please finish course of azithromycin as prescribed. Please follow up with primary care provider within 1-2 days. Return to emergency department if symptoms should worsen or any concerns arise. Is patient prescribed a controlled substance at d/c from ED?: No Referrals: Jazmin Castaneda MD [Primary Care Provider] - 1-2 days Time of Disposition: 00:59
--- NOTE | 2018-01-15 00:32 | XR ---
EXAMINATION TYPE: XR chest 2V DATE OF EXAM: 01/15/2018 COMPARISON: NONE HISTORY: Cough for 5 days TECHNIQUE: Frontal and lateral views of the chest are obtained. FINDINGS: Heart size is normal. There is mild bilateral perihilar interstitial density. There is no pleural effusion. There is spurring in the thoracic spine. Thoracic aorta is atheromatous. IMPRESSION: Mild perihilar interstitial infiltrates. Atheromatous aorta. No heart failure.
[2018-01-15 01:10] VITALS: BP 143/71; PULSE 98; RESP 17
== END 2018-01-15 01:10 | disposition home or self-care (01) ==
LOC: EC 23:17
DX: R91.8 Other nonspecific abnormal finding of lung field (principal); R05 Cough; I11.0 Hypertensive heart disease with heart failure; I50.9 Heart failure, unspecified; E78.5 Hyperlipidemia, unspecified; E11.9 Type 2 diabetes mellitus without complications; N28.9 Disorder of kidney and ureter, unspecified; Z95.5 Presence of coronary angioplasty implant and graft; Z99.2 Dependence on renal dialysis; Z79.4 Long term (current) use of insulin; Z79.82 Long term (current) use of aspirin; Z79.899 Other long term (current) drug therapy; Z87.891 Personal history of nicotine dependence
CPT/HCPCS: 71046; 94640; 99284

== ENCOUNTER 2018-05-08 14:28 | Emergency (ER) | payer MEDICARE, BC ==
[2018-05-08] MEDS ORDERED: SODIUM CHLORIDE 0.9% 1,000 ML IV STA (14:54)
[2018-05-08] MEDS ORDERED: PANTOPRAZOLE 40 MG/10 ML VIAL IVP STA (14:54)
[2018-05-08] MEDS ORDERED: MORPHINE SULFATE 4 MG/ML SYRINGE IV STA (14:54)
[2018-05-08] MEDS ORDERED: ONDANSETRON 4 MG/2 ML VIAL IVP STA (14:54)
[2018-05-08 15:37] LABS: Albumin 3.8 g/dL (3.5-5.0); Calcium 8.4 mg/dL (8.4-10.2); Potassium 4.9 mmol/L (3.5-5.1); Total Protein 6.4 g/dL (6.3-8.2)
--- NOTE | 2018-05-08 15:37 | ED ---
Nausea/Vomiting/Diarrhea HPI - General Chief complaint: Nausea/Vomiting/Diarrhea Stated complaint: Nauseated Time Seen by Provider: 05/08/18 14:53 Source: patient, RN notes reviewed, old records reviewed Mode of arrival: ambulatory Limitations: no limitations - History of Present Illness Initial comments: This is a 62-year-old male to the ER for evaluation. Patient resents for nausea and vomiting, no abdominal pain. Patient states she's recently started on new medication for his kidneys and has been causing these symptoms every time he takes it. Patient denies any current abdominal pain. Patient denies headache. Denies chest pain shortness breath or abdominal pain MD complaint: nausea -: hour(s) Description of Vomiting: other (No vomiting) Description of Diarrhea: other (No diarrhea) Associated Abdominal Pain: No Location: diffuse (Nauseous) Severity: mild Quality: aching Consistency: intermittent Improves with: none Worsens with: medication - Related Data Home Medications Medication Instructions Recorded Confirmed Aspirin [Adult Low Dose Aspirin EC] 81 mg PO DAILY 10/23/16 05/08/18 Atorvastatin [Lipitor] 10 mg PO HS 10/23/16 05/08/18 Calcium Acetate 2,668 mg PO TID-W/MEALS 10/23/16 05/08/18 Ergocalciferol (Vitamin D2) 50,000 unit PO Q14D 10/23/16 05/08/18 [Vitamin D2] Famotidine [Pepcid] 20 mg PO DAILY PRN 10/23/16 05/08/18 Furosemide 40 mg PO BID 10/23/16 05/08/18 Insulin Detemir [Levemir Flextouch] 18 unit SQ HS 10/23/16 05/08/18 Levothyroxine Sodium [Synthroid] 50 mcg PO BID 10/23/16 05/08/18 Levothyroxine Sodium [Synthroid] 300 mcg PO DAILY 10/23/16 05/08/18 Sodium Polystyrene Sulfonate [SPS] 50 gm PO MOTUWETH 10/23/16 05/08/18 hydrALAZINE HCL 50 mg PO DAILY 10/23/16 05/08/18 Cyanocobalamin (Vitamin B-12) 1,000 mcg PO DAILY 08/29/17 05/08/18 [Vitamin B-12] Gabapentin [Neurontin] 300 mg PO TID 08/29/17 05/08/18 Insulin Aspart [NovoLOG Flexpen] 10 units SQ AC-BRKFST 08/29/17 05/08/18 Insulin Aspart [NovoLOG Flexpen] 12 units SQ AC-SUPPER 08/29/17 05/08/18 Insulin Aspart [NovoLOG Flexpen] 18 units SQ AC-LUNCH 08/29/17 05/08/18 Magnebind 300mg 300 mg PO TID-W/MEALS 08/29/17 05/08/18 Pyridoxine [Vitamin B-6] 100 mg PO DAILY 08/29/17 05/08/18 diphenhydrAMINE [Benadryl] 25 mg PO DAILY 08/29/17 05/08/18 Folic Acid 0.8 mg PO DAILY 12/07/17 05/08/18 Cinacalcet HCl [Sensipar] 120 mg PO MOWEFR 05/08/18 05/08/18 Metoprolol Succinate (ER) [Toprol 50 mg PO DAILY 05/08/18 05/08/18 Xl] Allergies Allergy/AdvReac Type Severity Reaction Status Date / Time No Known Allergies Allergy Verified 05/08/18 16:26 Review of Systems ROS Statement: Those systems with pertinent positive or pertinent negative responses have been documented in the HPI. ROS Other: All systems not noted in ROS Statement are negative. Past Medical History Past Medical History: Heart Failure, Diabetes Mellitus, Hyperlipidemia, Hypertension, Renal Disease Additional Past Medical History / Comment(s): dailysis MWFr. was admitted 3 weeks ago for stomach virus History of Any Multi-Drug Resistant Organisms: None Reported Past Surgical History: Heart Catheterization With Stent, Orthopedic Surgery Additional Past Surgical History / Comment(s): left ankle, right hip rx, plate in right knee, last heart cath 2008, left arm graph for dialysis Past Anesthesia/Blood Transfusion Reactions: No Reported Reaction Date of Last Stent Placement:: 2008 Past Psychological History: No Psychological Hx Reported Smoking Status: Former smoker Past Alcohol Use History: None Reported Past Drug Use History: None Reported - Past Family History Mother Family Medical History: Congestive Heart Failure (CHF) Father Family Medical History: Congestive Heart Failure (CHF) Brother(s) Family Medical History: Congestive Heart Failure (CHF) General Exam Limitations: no limitations General appearance: alert, in no apparent distress Head exam: Present: atraumatic, normocephalic, normal inspection Eye exam: Present: normal appearance, PERRL, EOMI. Absent: scleral icterus, conjunctival injection, periorbital swelling ENT exam: Present: normal exam, mucous membranes moist Neck exam: Present: normal inspection. Absent: tenderness, meningismus, lymphadenopathy Respiratory exam: Present: normal lung sounds bilaterally. Absent: respiratory distress, wheezes, rales, rhonchi, stridor Cardiovascular Exam: Present: regular rate, normal rhythm, normal heart sounds. Absent: systolic murmur, diastolic murmur, rubs, gallop, clicks GI/Abdominal exam: Present: soft, normal bowel sounds. Absent: distended, tenderness, guarding, rebound, rigid Extremities exam: Present: normal inspection, full ROM, normal capillary refill. Absent: tenderness, pedal edema, joint swelling, calf tenderness Back exam: Present: normal inspection Neurological exam: Present: alert, oriented X3, CN II-XII intact Psychiatric exam: Present: normal affect, normal mood Skin exam: Present: warm, dry, intact, normal color. Absent: rash Course Vital Signs 05/08/18 05/08/18 14:29 16:37 Temperature 97.9 F 96.8 F L Pulse Rate 92 79 Respiratory 18 16 Rate Blood Pressure 122/70 104/57 O2 Sat by Pulse 97 95 Oximetry Medical Decision Making - Medical Decision Making 62 male the ER for evaluation, patient was essay for evaluation regards to nausea after taking medication. Patient states he's had the symptoms before medication induced refusing abdominal pain, patient will be discharged home - Lab Data Result diagrams: 05/08/18 15:05 05/08/18 15:05 Lab Results 05/08/18 05/08/18 05/08/18 Range/Units 15:05 15:05 15:05 WBC 5.8 (3.8-10.6) k/uL RBC 6.23 H (4.30-5.90) m/uL Hgb 13.3 (13.0-17.5) gm/dL Hct 44.8 (39.0-53.0) % MCV 72.0 L (80.0-100.0) fL MCH 21.4 L (25.0-35.0) pg MCHC 29.7 L (31.0-37.0) g/dL RDW 20.5 H (11.5-15.5) % Plt Count 104 L (150-450) k/uL Neutrophils % 61 % Lymphocytes % 22 % Monocytes % 8 % Eosinophils % 4 % Basophils % 0 % Neutrophils # 3.6 (1.3-7.7) k/uL Lymphocytes # 1.3 (1.0-4.8) k/uL Monocytes # 0.5 (0-1.0) k/uL Eosinophils # 0.3 (0-0.7) k/uL Basophils # 0.0 (0-0.2) k/uL Hypochromasia Moderate Poikilocytosis Slight Anisocytosis Moderate Microcytosis Marked Sodium 132 L (137-145) mmol/L Potassium 4.9 (3.5-5.1) mmol/L Chloride 92 L (98-107) mmol/L Carbon Dioxide 29 (22-30) mmol/L Anion Gap 11 mmol/L BUN 28 H (9-20) mg/dL Creatinine 5.79 H (0.66-1.25) mg/dL Est GFR (CKD-EPI)AfAm 11 (>60 ml/min/1.73 sqM) Est GFR (CKD-EPI)NonAf 9 (>60 ml/min/1.73 sqM) Glucose 252 H (74-99) mg/dL Plasma Lactic Acid Yonny (0.7-2.0) mmol/L Calcium 8.4 (8.4-10.2) mg/dL Total Bilirubin 1.0 (0.2-1.3) mg/dL AST 38 (17-59) U/L ALT 35 (21-72) U/L Alkaline Phosphatase 199 H (38-126) U/L Total Creatine Kinase 51 L (55-170) U/L CK-MB (CK-2) 1.0 (0.0-2.4) ng/mL CK-MB (CK-2) Rel Index 2.0 Troponin I <0.012 (0.000-0.034) ng/mL Total Protein 6.4 (6.3-8.2) g/dL Albumin 3.8 (3.5-5.0) g/dL Amylase 42 (30-110) U/L Lipase 37 (23-300) U/L 10/24/18 Range/Units 15:05 WBC (3.8-10.6) k/uL RBC (4.30-5.90) m/uL Hgb (13.0-17.5) gm/dL Hct (39.0-53.0) % MCV (80.0-100.0) fL MCH (25.0-35.0) pg MCHC (31.0-37.0) g/dL RDW (11.5-15.5) % Plt Count (150-450) k/uL Neutrophils % % Lymphocytes % % Monocytes % % Eosinophils % % Basophils % % Neutrophils # (1.3-7.7) k/uL Lymphocytes # (1.0-4.8) k/uL Monocytes # (0-1.0) k/uL Eosinophils # (0-0.7) k/uL Basophils # (0-0.2) k/uL Hypochromasia Poikilocytosis Anisocytosis Microcytosis Sodium (137-145) mmol/L Potassium (3.5-5.1) mmol/L Chloride (98-107) mmol/L Carbon Dioxide (22-30) mmol/L Anion Gap mmol/L BUN (9-20) mg/dL Creatinine (0.66-1.25) mg/dL Est GFR (CKD-EPI)AfAm (>60 ml/min/1.73 sqM) Est GFR (CKD-EPI)NonAf (>60 ml/min/1.73 sqM) Glucose (74-99) mg/dL Plasma Lactic Acid Yonny 1.2 (0.7-2.0) mmol/L Calcium (8.4-10.2) mg/dL Total Bilirubin (0.2-1.3) mg/dL AST (17-59) U/L ALT (21-72) U/L Alkaline Phosphatase (38-126) U/L Total Creatine Kinase (55-170) U/L CK-MB (CK-2) (0.0-2.4) ng/mL CK-MB (CK-2) Rel Index Troponin I (0.000-0.034) ng/mL Total Protein (6.3-8.2) g/dL Albumin (3.5-5.0) g/dL Amylase (30-110) U/L Lipase (23-300) U/L Disposition Clinical Impression: Abdominal pain Disposition: HOME SELF-CARE Condition: Good Instructions: Abdominal Pain (ED) Is patient prescribed a controlled substance at d/c from ED?: No Referrals: Jazmin Castaneda MD [Primary Care Provider] - 1-2 days
[2018-05-08 15:38] LABS: Anisocytosis Moderate; Basophils % (A) 0 %; Eosinophils # (A) 0.3 k/uL (0-0.7); Eosinophils % (A) 4 %; HCT 44.8 % (39.0-53.0); HGB 13.3 gm/dL (13.0-17.5); Hypochromasia Moderate; Lymphocytes # (A) 1.3 k/uL (1.0-4.8); Lymphocytes % (A) 22 %; MCH 21.4 pg (25.0-35.0); MCHC 29.7 g/dL (31.0-37.0); Mean Platelet Volume 6.6; Microcytosis Marked; Monocytes # (A) 0.5 k/uL (0-1.0); Monocytes % (A) 8 %; Neutrophils # (A) 3.6 k/uL (1.3-7.7); Neutrophils % (A) 61 %; Platelet Count 104 k/uL (150-450); Poikilocytosis Slight; RBC 6.23 m/uL (4.30-5.90); RDW 20.5 % (11.5-15.5); WBC 5.8 k/uL (3.8-10.6)
[2018-05-08 15:46] LABS: Creatine Kinase 51 U/L (55-170)
[2018-05-08 15:58] LABS: Troponin I <0.012 ng/mL (0.000-0.034)
[2018-05-08 16:39] VITALS: BP 104/57; PULSE 79; RESP 16; TEMP 96.8
--- NOTE | 2018-05-09 04:30 | CDI ---
Documentation Clarification OP Dear Dr. Maria Guadalupe lucero Please do addendum to ED report for missing HPI and Physical examination. Thank you, Deborah Escoto Wheelman If you have any questions, please contact Advertising Columnist at [phone] [facility]
== END 2018-05-08 16:49 | disposition home or self-care (01) ==
LOC: EC 14:28
DX: R10.9 Unspecified abdominal pain (principal); R11.2 Nausea with vomiting, unspecified; I11.0 Hypertensive heart disease with heart failure; I50.9 Heart failure, unspecified; E11.9 Type 2 diabetes mellitus without complications; E78.5 Hyperlipidemia, unspecified; Z99.2 Dependence on renal dialysis; Z95.5 Presence of coronary angioplasty implant and graft; Z95.818 Presence of other cardiac implants and grafts; Z87.891 Personal history of nicotine dependence; Z79.82 Long term (current) use of aspirin; Z79.4 Long term (current) use of insulin; Z79.899 Other long term (current) drug therapy; Z53.20 Procedure and treatment not carried out because of patient's decision for unspecified reasons
CPT/HCPCS: 36415; 80053; 82150; 82550; 82553; 83605; 83690; 84484; 85025; 99284; 96374; 96375; 96361; J2405; C9113

== ENCOUNTER 2018-09-11 23:20 | Inpatient (IN) | payer MEDICARE, BC ==
[2018-09-12] MEDS ORDERED: ONDANSETRON 4 MG/2 ML VIAL IVP STA (00:11)
[2018-09-12 01:06] LABS: Anisocytosis Moderate; Basophils # (A) 0.1 k/uL (0-0.2); Basophils % (A) 1 %; Eosinophils # (A) 0.9 k/uL (0-0.7); Eosinophils % (A) 12 %; HCT 42.7 % (39.0-53.0); HGB 12.7 gm/dL (13.0-17.5); Hypochromasia Moderate; Lymphocytes # (A) 1.4 k/uL (1.0-4.8); Lymphocytes % (A) 20 %; MCH 21.3 pg (25.0-35.0); MCHC 29.8 g/dL (31.0-37.0); MCV 71.4 fL (80.0-100.0); Mean Platelet Volume 6.3; Microcytosis Marked; Monocytes # (A) 0.5 k/uL (0-1.0); Monocytes % (A) 7 %; Neutrophils % (A) 56 %; Platelet Count 120 k/uL (150-450); Poikilocytosis Slight; RBC 5.98 m/uL (4.30-5.90); RDW 21.5 % (11.5-15.5); WBC 7.1 k/uL (3.8-10.6)
--- NOTE | 2018-09-12 01:11 | ED ---
Nausea/Vomiting/Diarrhea HPI - General Chief complaint: Nausea/Vomiting/Diarrhea Stated complaint: Nausea Time Seen by Provider: 09/12/18 00:05 Source: patient, family Mode of arrival: ambulatory Limitations: no limitations - History of Present Illness Initial comments: 63-year-old male patient presents to the emergency department today for evaluation of nausea and upper abdominal discomfort. Patient states this started shortly after taking his Sensipar after dinner. Patient states he has had these symptoms after taking Sensipar in the past. States it has been quite some time because he usually takes it with the meal. He denies any fever or chills. Denies any radiation of the pain to his back. He denies any vomiting, constipation, or diarrhea. Patient does receive dialysis on a Sunday schedule, he did have dialysis today. He denies any chest pain or shortness of breath. Patient denies any recent rash, back pain, numbness, tingling, dizziness, weakness, hematuria, dysuria, urinary urgency, urinary frequency, headache, visual changes, or any other complaints. - Related Data Home Medications Medication Instructions Recorded Confirmed Aspirin [Adult Low Dose Aspirin EC] 81 mg PO DAILY 10/23/16 05/08/18 Atorvastatin [Lipitor] 10 mg PO HS 10/23/16 05/08/18 Calcium Acetate 2,668 mg PO TID-W/MEALS 10/23/16 05/08/18 Ergocalciferol (Vitamin D2) 50,000 unit PO Q14D 10/23/16 05/08/18 [Vitamin D2] Famotidine [Pepcid] 20 mg PO DAILY PRN 10/23/16 05/08/18 Furosemide 40 mg PO BID 10/23/16 05/08/18 Insulin Detemir [Levemir Flextouch] 18 unit SQ HS 10/23/16 05/08/18 Levothyroxine Sodium [Synthroid] 50 mcg PO BID 10/23/16 05/08/18 Levothyroxine Sodium [Synthroid] 300 mcg PO DAILY 10/23/16 05/08/18 Sodium Polystyrene Sulfonate [SPS] 50 gm PO MOTUWETH 10/23/16 05/08/18 hydrALAZINE HCL 50 mg PO DAILY 10/23/16 05/08/18 Cyanocobalamin (Vitamin B-12) 1,000 mcg PO DAILY 08/29/17 05/08/18 [Vitamin B-12] Gabapentin [Neurontin] 300 mg PO TID 08/29/17 05/08/18 Insulin Aspart [NovoLOG Flexpen] 10 units SQ AC-BRKFST 08/29/17 05/08/18 Insulin Aspart [NovoLOG Flexpen] 12 units SQ AC-SUPPER 08/29/17 05/08/18 Insulin Aspart [NovoLOG Flexpen] 18 units SQ AC-LUNCH 08/29/17 05/08/18 Magnebind 300mg 300 mg PO TID-W/MEALS 08/29/17 05/08/18 Pyridoxine [Vitamin B-6] 100 mg PO DAILY 08/29/17 05/08/18 diphenhydrAMINE [Benadryl] 25 mg PO DAILY 08/29/17 05/08/18 Folic Acid 0.8 mg PO DAILY 12/07/17 05/08/18 Cinacalcet HCl [Sensipar] 120 mg PO MOWEFR 05/08/18 05/08/18 Metoprolol Succinate (ER) [Toprol 50 mg PO DAILY 05/08/18 05/08/18 Xl] Allergies Allergy/AdvReac Type Severity Reaction Status Date / Time No Known Allergies Allergy Verified 09/11/18 23:28 Review of Systems ROS Statement: Those systems with pertinent positive or pertinent negative responses have been documented in the HPI. ROS Other: All systems not noted in ROS Statement are negative. Past Medical History Past Medical History: Heart Failure, Diabetes Mellitus, Hyperlipidemia, Hypertension, Renal Disease Additional Past Medical History / Comment(s): dailysis [facility]. was admitted 3 weeks ago for stomach virus History of Any Multi-Drug Resistant Organisms: None Reported Past Surgical History: Heart Catheterization With Stent, Orthopedic Surgery Additional Past Surgical History / Comment(s): left ankle, right hip rx, plate in right knee, last heart cath 2008, left arm graph for dialysis Past Anesthesia/Blood Transfusion Reactions: No Reported Reaction Date of Last Stent Placement:: 2008 Past Psychological History: No Psychological Hx Reported Smoking Status: Former smoker Past Alcohol Use History: None Reported Past Drug Use History: None Reported - Past Family History Mother Family Medical History: Congestive Heart Failure (CHF) Father Family Medical History: Congestive Heart Failure (CHF) Brother(s) Family Medical History: Congestive Heart Failure (CHF) General Exam Limitations: no limitations General appearance: alert, in no apparent distress, other (Social well-developed , well-nourished adult male patient in no acute distress. Vital signs upon presentation are temperature 98.3F, pulse 93, respirations 18, blood pressure 106/64, pulse ox 98% on room air.) Eye exam: Present: normal appearance, PERRL, EOMI. Absent: scleral icterus, conjunctival injection, periorbital swelling ENT exam: Present: normal exam, normal oropharynx, mucous membranes moist Respiratory exam: Present: normal lung sounds bilaterally. Absent: respiratory distress, wheezes, rales, rhonchi, stridor Cardiovascular Exam: Present: regular rate, normal rhythm, normal heart sounds. Absent: systolic murmur, diastolic murmur, rubs, gallop, clicks GI/Abdominal exam: Present: soft, normal bowel sounds. Absent: distended, tenderness, guarding, rebound, rigid Neurological exam: Present: alert, oriented X3, CN II-XII intact Psychiatric exam: Present: normal affect, normal mood Skin exam: Present: warm, dry, intact, normal color. Absent: rash Course Vital Signs 09/11/18 23:23 Temperature 98.3 F Pulse Rate 93 Respiratory 18 Rate Blood Pressure 106/64 O2 Sat by Pulse 98 Oximetry Medical Decision Making - Medical Decision Making 63-year-old male patient presented to the emergency department today for evaluation of nausea and abdominal discomfort. Patient did receive dialysis today states that he generally gets nausea and abdominal discomfort after taking his Sensipar. Physical examination was unremarkable, abdomen soft and nontender. Labs were reviewed and did reveal elevated potassium at 6.5. Elevated BUN and creatinine. The patient was given IV insulin, dextrose, and calcium. We given an oral dose of Kayexalate. We will admit overnight for cardiac monitoring and repeat labs in the morning. Did discuss findings, results, plan with the patient, he is agreeable. Dr. Bernal is accepting. - Lab Data Result diagrams: 09/12/18 00:49 09/12/18 00:49 Lab Results 09/12/18 09/12/18 Range/Units 00:49 00:49 WBC 7.1 (3.8-10.6) k/uL RBC 5.98 H (4.30-5.90) m/uL Hgb 12.7 L (13.0-17.5) gm/dL Hct 42.7 (39.0-53.0) % MCV 71.4 L (80.0-100.0) fL MCH 21.3 L (25.0-35.0) pg MCHC 29.8 L (31.0-37.0) g/dL RDW 21.5 H (11.5-15.5) % Plt Count 120 L (150-450) k/uL Neutrophils % 56 % Lymphocytes % 20 % Monocytes % 7 % Eosinophils % 12 % Basophils % 1 % Neutrophils # 4.0 (1.3-7.7) k/uL Lymphocytes # 1.4 (1.0-4.8) k/uL Monocytes # 0.5 (0-1.0) k/uL Eosinophils # 0.9 H (0-0.7) k/uL Basophils # 0.1 (0-0.2) k/uL Hypochromasia Moderate Poikilocytosis Slight Anisocytosis Moderate Microcytosis Marked Sodium 135 L (137-145) mmol/L Potassium 6.5 H* (3.5-5.1) mmol/L Chloride 92 L (98-107) mmol/L Carbon Dioxide 30 (22-30) mmol/L Anion Gap 13 mmol/L BUN 40 H (9-20) mg/dL Creatinine 7.18 H* (0.66-1.25) mg/dL Est GFR (CKD-EPI)AfAm 8 (>60 ml/min/1.73 sqM) Est GFR (CKD-EPI)NonAf 7 (>60 ml/min/1.73 sqM) Glucose 244 H (74-99) mg/dL Calcium 8.0 L (8.4-10.2) mg/dL Total Bilirubin 0.9 (0.2-1.3) mg/dL AST 24 (17-59) U/L ALT 27 (21-72) U/L Alkaline Phosphatase 156 H (38-126) U/L Total Protein 6.4 (6.3-8.2) g/dL Albumin 4.0 (3.5-5.0) g/dL Amylase 50 (30-110) U/L Lipase 275 (23-300) U/L - EKG Data -: EKG Interpreted by Nv EKG Comments: EKG interpreted by me at 0256 shows normal sinus rhythm with a left anterior fascicular block, prolonged QT intervals. Ventricular rate is 75, MD interval 160, QRS duration 112, QTC 442, QTc 493. No evidence of ST elevation or depression. Disposition Clinical Impression: Hyperkalemia Disposition: ADMITTED IP TO THIS [facility] Condition: Serious Referrals: Jazmin Castaneda MD [Primary Care Provider] - 1-2 days Decision to Admit Reason: Admit from EC Decision Date: 09/12/18 Decision Time: 04:23
[2018-09-12 01:22] LABS: Total Bilirubin 0.9 mg/dL (0.2-1.3); Total Protein 6.4 g/dL (6.3-8.2)
[2018-09-12 02:18] LABS: Potassium 6.5 mmol/L (3.5-5.1)
[2018-09-12] MEDS ORDERED: CALCIUM CHLORIDE 100 MG/ML 10 ML SYRINGE IVP STA (03:00)
[2018-09-12] MEDS ORDERED: DEXTROSE 50%-WATER 50 ML SYRINGE IVP STA ×2 (03:00→11:02)
[2018-09-12] MEDS ORDERED: SODIUM POLYSTYRENE SULFONATE 15 GM/60 ML BOTTLE PO STA (03:00)
[2018-09-12] MEDS ORDERED: INSULIN REGULAR 100 UNIT/ML VIAL IV STA (03:00)
[2018-09-12] MEDS ORDERED: MORPHINE SULFATE 4 MG/ML SYRINGE IVP STA (04:01)
[2018-09-12] MEDS ORDERED: NALOXONE 0.4 MG/ML 1 ML VIAL IV PRN (04:20)
--- NOTE | 2018-09-12 10:18 | P.NPCON ---
History of Present Illness - Reason for Consult end stage renal disease - History of Present Illness Reason for consultation: End-stage renal disease History of present illness: Patient is a 63-year-old male seen in consultation for end-stage renal disease. He is maintained on hemodialysis on a Sunday schedule. Patient presented to the hospital due to nausea. Patient states after dinner yesterday he felt nauseous which didn't improve. Potassium was noted to be elevated at 6.5. He did receive Kayexalate along with insulin and D50. He also received a dose of calcium chloride. Potassium level from this morning is pending. He did complete hemodialysis yesterday. Patient's potassium tends to run high as an outpatient and he's to be taking Kayexalate at least 5 times a week but only takes it twice a week. Hemodynamically he stable. No vomiting or diarrhea. Denies chest pain or shortness of breath. No fever or chills. Nausea seems to have improved. Vital signs are stable. General: The patient appeared well nourished and normally developed. HEENT: Head exam is unremarkable. Neck is without jugular venous distension. LUNGS: Lungs are clear to auscultation and percussion. Breath sounds decreased. HEART: Rate and Rhythm are regular. First and second heart sounds normal. No murmurs, rubs or gallops. ABDOMEN: Abdominal exam reveals normal bowel sounds. Non-tender and non- distended. No evidence of peritonitis. EXTREMITITES: No clubbing, cyanosis, or edema. Past Medical History Past Medical History: Heart Failure, Diabetes Mellitus, Hyperlipidemia, Hypertension, Renal Disease Additional [facility] stomach [facility] History of Any Multi-Drug Resistant Organisms: None Reported Past Surgical History: Heart Catheterization With Stent, Orthopedic Surgery Additional Past Surgical History / Comment(s): left ankle, right hip rx, plate in right knee, last heart cath 2008, left arm graph for dialysis Past Anesthesia/Blood Transfusion Reactions: No Reported Reaction Date of Last Stent Placement:: 2008 Past Psychological History: No Psychological Hx Reported Smoking Status: Former smoker Past Alcohol Use History: None Reported Past Drug Use History: None Reported - Past Family History Mother Family Medical History: Congestive Heart Failure (CHF) Father Family Medical History: Congestive Heart Failure (CHF) Brother(s) Family Medical History: Congestive Heart Failure (CHF) Medications and Allergies Home Medications Medication Instructions Recorded Confirmed Type Aspirin [Adult Low Dose Aspirin EC] 81 mg PO DAILY 10/23/16 09/12/18 History Atorvastatin [Lipitor] 10 mg PO HS 10/23/16 09/12/18 History Ergocalciferol (Vitamin D2) 50,000 unit PO Q14D 10/23/16 09/12/18 History [Vitamin D2] Sodium Polystyrene Sulfonate [SPS] 30 gm PO SUSA 10/23/16 09/12/18 History hydrALAZINE HCL 50 mg PO DAILY 10/23/16 09/12/18 History Gabapentin [Neurontin] 300 mg PO BID 08/29/17 09/12/18 History Insulin Aspart [NovoLOG Flexpen] 13 units SQ AC-SUPPER 08/29/17 09/12/18 History Insulin Aspart [NovoLOG Flexpen] 15 units SQ AC-BRKFST 08/29/17 09/12/18 History Insulin Aspart [NovoLOG Flexpen] 18 units SQ AC-LUNCH 08/29/17 09/12/18 History Pyridoxine [Vitamin B-6] 100 mg PO DAILY 08/29/17 09/12/18 History diphenhydrAMINE [Benadryl] 25 mg PO DAILY 08/29/17 09/12/18 History Folic Acid 0.8 mg PO DAILY 12/07/17 09/12/18 History Cinacalcet HCl [Sensipar] 60 mg PO MOTUWETHFRSA 05/08/18 09/12/18 History Metoprolol Succinate (ER) [Toprol 50 mg PO DAILY 05/08/18 09/12/18 History Xl] Calcium Acetate [Phoslo] 2,668 mg PO TID-W/MEALS 09/12/18 09/12/18 History Cyanocobalamin [Vitamin B-12] 500 mcg PO DAILY 09/12/18 09/12/18 History Furosemide [Lasix] 80 mg PO Q12HR 09/12/18 09/12/18 History HYDROcodone/APAP 5-325MG [[place] 1 tab PO DAILY 09/12/18 09/12/18 History 5-325] Insulin NPH Human Isophane 16 unit SQ HS 09/12/18 09/12/18 History [humuLIN N] Ondansetron HCl [Zofran] 8 mg PO DAILY PRN 09/12/18 09/12/18 History Pioglitazone [Actos] 15 mg PO DAILY 09/12/18 09/12/18 History Allergies Allergy/AdvReac Type Severity Reaction Status Date / Time No Known Allergies Allergy Verified 09/12/18 07:10 Physical Exam Vitals: Vital Signs Temp Pulse Resp BP Pulse Ox 09/12/18 06:00 81 18 119/69 98 09/12/18 03:50 98.4 F 84 18 109/74 99 09/11/18 23:23 98.3 F 93 18 106/64 98 Intake and Output 09/11/18 09/12/18 09/12/18 22:59 06:59 14:59 Other: Weight 117.934 kg Results - Lab Results Most recent lab results Calcium 8.0 mg/dL (8.4-10.2) L 09/12/18 00:49 09/12/18 00:49 09/12/18 00:49 Assessment and Plan Plan: Assessment: 1. End-stage renal disease maintained on hemodialysis on a Sunday schedule. 2. Hyperkalemia secondary to chronic kidney disease. Patient's potassium tends to run high as an outpatient and he's to take Kayexalate 5 times a week but only takes it twice a week. He's also had multiple revisions done to his access and there is concern for recirculation. 3. Hypertension with chronic kidney disease. Controlled. 4. Diabetes mellitus. 5. Anemia of chronic kidney disease. Hemoglobin at goal. 6. Nausea. Possibly from gastroparesis. Seems to have improved. Plan: Await this morning's potassium level. If high, I will arrange for an extra hemodialysis treatment today. Otherwise will plan for hemodialysis tomorrow. Thank you for the consultation. I will continue to follow the patient with you during his hospital stay.
[2018-09-12] MEDS ORDERED: INSULIN REGULAR 100 UNIT/ML VIAL IV ONE (11:01)
[2018-09-12] MEDS ORDERED: CALCIUM GLUCONATE 1 GM in SODIUM CHLORIDE 0.9% 100 ML IVPB ONE (11:02)
[2018-09-12] MEDS ORDERED: ONDANSETRON 4 MG TAB PO PRN (12:08)
[2018-09-12] MEDS ORDERED: ERGOCALCIFEROL 50,000 UNIT CAP PO SCH (12:15)
--- NOTE | 2018-09-12 14:57 | P.HPIM ---
History of Present Illness H&P Date: 09/12/18 This is a 63-year-old female patient of Dr. Castaneda. Patient presented for complaints of hyperkalemia. Patient does report he's been having nausea and upper abdominal discomfort. Patient reports he did go to hemodialysis yesterday and did take his scheduled Kayexalate from nephrology services the potassium elevated at 6.5. Patient has a known past medical history of heart failure, diabetes mellitus, hyperlipidemia, hypertension, end-stage renal disease on hemodialysis Sunday. EKG completed in ER showing normal sinus rhythm with prolonged QT. Per nephrology services patient was given 10 units IV insulin along with amp of D50. Discussed case with nephrology services patient to get hemodialysis again today and reassess potassium level. Patient possibly be DC'd tomorrow if potassium level corrects. At this time patient denies chest pain or shortness breath. Patient denies nausea vomiting or diarrhea. Patient denies any urinary burning or frequency. Review of Systems please refer to HPI otherwise unremarkable Past Medical History Past Medical History: Heart Failure, Diabetes Mellitus, Hyperlipidemia, Hypertension, Renal Disease Additional Past Medical History / Comment(s): ESRD with hemodailysis MWF-last received 09/11/18, abdominal pain/nausea after sensipar in the past but not lately, hyperkalemia, chronic anemia, IDDM type II, neuropathy bilateral feet, bilateral eye retinopathy and leaking vessel behind R eye and recently told also now behind L eye, past R great toe diabetic ulcer which was healed thru [facility] but recently returned-business economist is seeing pt and scaping the wound. 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 Past Anesthesia/Blood Transfusion Reactions: No Reported Reaction Additional Past Anesthesia/Blood Transfusion Reaction / Comment(s): Pt states he has woken during surgeries in the past. Date of Last Stent Placement:: 2008 Smoking Status: Former smoker - Past Family History Mother Family Medical History: Congestive Heart Failure (CHF) Additional Family Medical History / Comment(s): Mother lived to be 89 yrs old. Father Family Medical History: Congestive Heart Failure (CHF) Additional Family Medical History / Comment(s): Father lived to be 93 yrs old. Brother(s) Family Medical History: Congestive Heart Failure (CHF) Additional Family Medical History / Comment(s): Brother at the age of 67yrs. Medications and Allergies Home Medications Medication Instructions Recorded Confirmed Type Aspirin [Adult Low Dose Aspirin EC] 81 mg PO DAILY 10/23/16 09/12/18 History Atorvastatin [Lipitor] 10 mg PO HS 10/23/16 09/12/18 History Ergocalciferol (Vitamin D2) 50,000 unit PO Q14D 10/23/16 09/12/18 History [Vitamin D2] Sodium Polystyrene Sulfonate [SPS] 30 gm PO SUSA 10/23/16 09/12/18 History hydrALAZINE HCL 50 mg PO DAILY 10/23/16 09/12/18 History Gabapentin [Neurontin] 300 mg PO BID 08/29/17 09/12/18 History Insulin Aspart [NovoLOG Flexpen] 13 units SQ AC-SUPPER 08/29/17 09/12/18 History Insulin Aspart [NovoLOG Flexpen] 15 units SQ AC-BRKFST 08/29/17 09/12/18 History Insulin Aspart [NovoLOG Flexpen] 18 units SQ AC-LUNCH 08/29/17 09/12/18 History Pyridoxine [Vitamin B-6] 100 mg PO DAILY 08/29/17 09/12/18 History diphenhydrAMINE [Benadryl] 25 mg PO DAILY 08/29/17 09/12/18 History Folic Acid 0.8 mg PO DAILY 12/07/17 09/12/18 History Cinacalcet HCl [Sensipar] 60 mg PO MOTUWETHFRSA 05/08/18 09/12/18 History Metoprolol Succinate (ER) [Toprol 50 mg PO DAILY 05/08/18 09/12/18 History Xl] Calcium Acetate [Phoslo] 2,668 mg PO TID-W/MEALS 09/12/18 09/12/18 History Cyanocobalamin [Vitamin B-12] 500 mcg PO DAILY 09/12/18 09/12/18 History Furosemide [Lasix] 80 mg PO Q12HR 09/12/18 09/12/18 History HYDROcodone/APAP 5-325MG [[place] 1 tab PO DAILY 09/12/18 09/12/18 History 5-325] Insulin NPH Human Isophane 16 unit SQ HS 09/12/18 09/12/18 History [humuLIN N] Ondansetron HCl [Zofran] 8 mg PO DAILY PRN 09/12/18 09/12/18 History Pioglitazone [Actos] 15 mg PO DAILY 09/12/18 09/12/18 History Allergies Allergy/AdvReac Type Severity Reaction Status Date / Time No Known Allergies Allergy Verified 09/12/18 07:10 Physical Exam Vitals: Vital Signs Temp Pulse Resp BP Pulse Ox 09/12/18 06:00 81 18 119/69 98 09/12/18 03:50 98.4 F 84 18 109/74 99 09/11/18 23:23 98.3 F 93 18 106/64 98 Intake and Output 09/11/18 09/12/18 09/12/18 22:59 06:59 14:59 Intake Total 240 Balance 240 Intake: Oral 240 Other: # Voids 1 Weight 117.934 kg Head normocephalic Neck supple Lungs clear to auscultation bilaterally no wheezing or crackles Heart regular rate and rhythm S1-S2, no rub or gallop Abdomen is soft nontender nondistended positive bowel sounds no hepatosplenomegaly Extremities no edema Neuro alert and orientated to 3 Results CBC & Chem 7: 09/12/18 00:49 09/12/18 09:28 Labs: Abnormal Lab Results - Last 24 Hours (Table) 09/12/18 09/12/18 09/12/18 Range/Units 00:49 00:49 09:28 RBC 5.98 H (4.30-5.90) m/uL Hgb 12.7 L (13.0-17.5) gm/dL MCV 71.4 L (80.0-100.0) fL MCH 21.3 L (25.0-35.0) pg MCHC 29.8 L (31.0-37.0) g/dL RDW 21.5 H (11.5-15.5) % Plt Count 120 L (150-450) k/uL Eosinophils # 0.9 H (0-0.7) k/uL Sodium 135 L (137-145) mmol/L Potassium 6.5 H* 6.9 H* (3.5-5.1) mmol/L Chloride 92 L (98-107) mmol/L BUN 40 H (9-20) mg/dL Creatinine 7.18 H* (0.66-1.25) mg/dL Glucose 244 H (74-99) mg/dL Calcium 8.0 L (8.4-10.2) mg/dL Alkaline Phosphatase 156 H (38-126) U/L Thrombosis Risk Factor Assmnt - Choose All That Apply Each Factor Represents 1 point: Obesity (BMI >25) Other Risk Factors: Yes Each Risk Factor Represents 2 Points: Age 61-74 years Other congenital or acquired thrombophilia - If yes, enter type in comment: No Thrombosis Risk Factor Assessment Total Risk Factor Score: 3 Thrombosis Risk Factor Assessment Level: Moderate Risk Assessment and Plan Assessment: 1. Hyperkalemia potassium 6.9. Patient received potassium lowering cocktail from nephrology. Patient to get hemodialysis again today and reassess 2. End-stage renal disease. Patient received hemodialysis Sunday. 3. QT prolonged. EKG completed showing normal sinus rhythm with Prolonged QT. Cardiology Services Have Been Consulted This Is Likely Related to the Hyperkalemia 4. Anemia of chronic disease 5. Diabetes mellitus type 2. Continue home insulin 6. Essential hypertension 7. Hyperlipidemia DVT prophylaxis Lovenox. GI prophylaxis Protonix Time with Patient: Greater than 30 (Greater than 60% of the total time spent in counseling and coordination of care. I performed an examination of the patient and discussed their management with the Nurse Practitioner. I have reviewed the Nurse Practitioner's notes and agree with the documented findings and plan of care)
[2018-09-12 16:31] LABS: Glucose,Whole Blood 315 mg/dL (75-99)
[2018-09-12] MEDS ORDERED: INSULIN ASPART (NovoLOG) 100 UNIT/ML VIAL SQ SCH (17:30)
[2018-09-12] MEDS: HYDROcodone/APAP 5-325MG 1 EACH TAB PO SCH (19:34)
[2018-09-12] MEDS: CINACALCET 30 MG TAB PO SCH (19:39)
[2018-09-12] MEDS: INSULIN ASPART (NovoLOG) 100 UNIT/ML VIAL SQ SCH (19:39)
[2018-09-12] MEDS: CALCIUM ACETATE 667 MG CAP PO SCH ×2 (19:39→21:44)
[2018-09-12 20:33] LABS: Glucose,Whole Blood 114 mg/dL (75-99)
[2018-09-12] MEDS ORDERED: INSULIN NPH 300 UNIT/3 ML VIAL SQ SCH (21:00)
[2018-09-12] MEDS ORDERED: ATORVASTATIN 10 MG TAB PO SCH (21:00)
[2018-09-12] MEDS: FUROSEMIDE 80 MG TAB PO SCH (21:44)
[2018-09-12] MEDS: GABAPENTIN 300 MG CAP PO SCH (21:44)
[2018-09-12 23:42] LABS: Glucose,Whole Blood 196 mg/dL (75-99)
[2018-09-13 05:12] VITALS: RESP 18
[2018-09-13 06:09] LABS: Glucose,Whole Blood 203 mg/dL (75-99)
[2018-09-13 06:11] LABS: Anisocytosis Moderate; Basophils % (A) 1 %; Eosinophils % (A) 14 %; HGB 12.5 gm/dL (13.0-17.5); Hypochromasia Marked; Lymphocytes # (A) 1.3 k/uL (1.0-4.8); Lymphocytes % (A) 19 %; MCH 22.5 pg (25.0-35.0); MCHC 31.2 g/dL (31.0-37.0); MCV 72.2 fL (80.0-100.0); Mean Platelet Volume 6.1; Microcytosis Marked; Monocytes # (A) 0.5 k/uL (0-1.0); Monocytes % (A) 7 %; Neutrophils # (A) 3.9 k/uL (1.3-7.7); Neutrophils % (A) 56 %; Poikilocytosis Slight; RBC 5.54 m/uL (4.30-5.90)
[2018-09-13] MEDS: HYDROcodone/APAP 5-325MG 1 EACH TAB PO SCH (06:17)
[2018-09-13 06:20] LABS: Albumin 3.7 g/dL (3.5-5.0); Calcium 8.3 mg/dL (8.4-10.2); Potassium 5.5 mmol/L (3.5-5.1); Total Protein 5.9 g/dL (6.3-8.2)
[2018-09-13 06:40] LABS: Platelet Count 95 k/uL (150-450); Target Cells Present
[2018-09-13] MEDS ORDERED: INSULIN ASPART (NovoLOG) 100 UNIT/ML VIAL SQ SCH (07:30)
[2018-09-13] MEDS ORDERED: PANTOPRAZOLE 40 MG TABLET PO SCH (07:30)
--- NOTE | 2018-09-13 08:39 | P.PN ---
Subjective Patient is seen in follow-up for end-stage renal disease. He is maintained on hemodialysis on a Sunday schedule. Patient presented to the hospital with nausea which has resolved. He is feeling well today. He is eager to go home. He is scheduled for hemodialysis today. Vital signs are stable. General: The patient appeared well nourished and normally developed. HEENT: Head exam is unremarkable. Neck is without jugular venous distension. LUNGS: Lungs are clear to auscultation and percussion. Breath sounds decreased. HEART: Rate and Rhythm are regular. First and second heart sounds normal. No murmurs, rubs or gallops. ABDOMEN: Abdominal exam reveals normal bowel sounds. Non-tender and non- distended. No evidence of peritonitis. EXTREMITITES: No clubbing, cyanosis, or edema. Objective - Vital Signs Vital signs: Vital Signs Temp 97.3 F L 09/13/18 05:05 Pulse 85 09/13/18 05:05 Resp 18 09/13/18 05:05 BP 116/59 09/13/18 05:05 Pulse Ox 97 09/13/18 05:05 Intake & Output 09/12/18 09/13/18 09/13/18 18:59 06:59 18:59 Intake Total 480 200 Balance 480 200 Weight 119 kg Intake: Oral 480 200 Other: # Voids 1 0 1 - Labs CBC & Chem 7: 09/13/18 05:54 09/13/18 05:54 Labs: Abnormal Lab Results - Last 24 Hours (Table) 09/12/18 09/12/18 09/12/18 Range/Units 09:28 16:20 20:32 Hgb (13.0-17.5) gm/dL MCV (80.0-100.0) fL MCH (25.0-35.0) pg RDW (11.5-15.5) % Plt Count (150-450) k/uL Eosinophils # (0-0.7) k/uL Sodium (137-145) mmol/L Potassium 6.9 H* (3.5-5.1) mmol/L Chloride (98-107) mmol/L BUN (9-20) mg/dL Creatinine (0.66-1.25) mg/dL Glucose (74-99) mg/dL POC Glucose (mg/dL) 315 H 114 H (75-99) mg/dL Calcium (8.4-10.2) mg/dL Total Protein (6.3-8.2) g/dL 09/12/18 09/13/18 09/13/18 Range/Units 23:40 05:54 05:54 Hgb 12.5 L (13.0-17.5) gm/dL MCV 72.2 L (80.0-100.0) fL MCH 22.5 L (25.0-35.0) pg RDW 21.0 H (11.5-15.5) % Plt Count 95 L (150-450) k/uL Eosinophils # 1.0 H (0-0.7) k/uL Sodium 134 L (137-145) mmol/L Potassium 5.5 H (3.5-5.1) mmol/L Chloride 96 L (98-107) mmol/L BUN 39 H (9-20) mg/dL Creatinine 6.90 H (0.66-1.25) mg/dL Glucose 196 H (74-99) mg/dL POC Glucose (mg/dL) 196 H (75-99) mg/dL Calcium 8.3 L (8.4-10.2) mg/dL Total Protein 5.9 L (6.3-8.2) g/dL 09/13/18 Range/Units 06:08 Hgb (13.0-17.5) gm/dL MCV (80.0-100.0) fL MCH (25.0-35.0) pg RDW (11.5-15.5) % Plt Count (150-450) k/uL Eosinophils # (0-0.7) k/uL Sodium (137-145) mmol/L Potassium (3.5-5.1) mmol/L Chloride (98-107) mmol/L BUN (9-20) mg/dL Creatinine (0.66-1.25) mg/dL Glucose (74-99) mg/dL POC Glucose (mg/dL) 203 H (75-99) mg/dL Calcium (8.4-10.2) mg/dL Total Protein (6.3-8.2) g/dL Assessment and Plan Plan: Assessment: 1. End-stage renal disease maintained on hemodialysis on a Sunday schedule. 2. Hyperkalemia secondary to chronic kidney disease. Patient's potassium tends to run high as an outpatient and he's to take Kayexalate 5 times a week but only takes it twice a week. He's also had multiple revisions done to his access and there is concern for recirculation. He has been following up with vascular surgery. 3. Hypertension with chronic kidney disease. Controlled. 4. Diabetes mellitus. 5. Anemia of chronic kidney disease. Hemoglobin at goal. 6. Nausea. Possibly from gastroparesis. Seems to have improved. 7. Chronic kidney disease mineral bone disease maintained on PhosLo and Sensipar. Plan: Hemodialysis today. Stressed the importance of taking Kayexalate at least 5 times a week. He is to follow-up low potassium diet. This has been stressed multiple times with him.
[2018-09-13] MEDS ORDERED: ENOXAPARIN 40 MG/0.4 ML SYRINGE SQ SCH (09:00)
[2018-09-13] MEDS ORDERED: HYDROcodone/APAP 5-325MG 1 EACH TAB PO SCH (09:00)
[2018-09-13] MEDS ORDERED: hydrALAZINE HCL 50 MG TAB PO SCH (09:00)
[2018-09-13] MEDS ORDERED: PYRIDOXINE 50 MG TAB PO SCH (09:00)
[2018-09-13] MEDS ORDERED: PIOGLITAZONE 15 MG TAB PO SCH (09:00)
[2018-09-13] MEDS ORDERED: ASPIRIN 81 MG PO SCH (09:00)
[2018-09-13] MEDS ORDERED: CYANOCOBALAMIN 500 MCG TAB PO SCH (09:00)
[2018-09-13] MEDS ORDERED: METOPROLOL SUCCINATE (ER) 50 MG TAB.ER.24H PO SCH (09:00)
[2018-09-13] MEDS ORDERED: FOLIC ACID 1 MG TAB PO SCH (09:00)
[2018-09-13] MEDS ORDERED: diphenhydrAMINE 25 MG CAP PO SCH ×2 (09:00→21:00)
[2018-09-13] MEDS: GABAPENTIN 300 MG CAP PO SCH (09:39)
[2018-09-13] MEDS: CALCIUM ACETATE 667 MG CAP PO SCH ×2 (09:45→12:05)
[2018-09-13 11:06] LABS: Glucose,Whole Blood 173 mg/dL (75-99)
[2018-09-13 11:29] VITALS: TEMP 97.7
--- NOTE | 2018-09-13 12:02 | P.CRDCN ---
History of Present Illness Consult date: 09/13/18 Requesting physician: Debbie Bernal Reason for Consult (text): Prolonged QT Chief complaint: Abdominal Pain and nausea History of present illness: This is a 63-year-old gentleman with history of diabetes, hypertension , hyperlipidemia, coronary artery disease with prior PCI, end-stage renal disease on hemodialysis. Who presented to the hospital with symptoms of abdominal pain and nausea. Cardiology consultation was requested because of prolonged QT interval. Potassium level on arrival here 6.5, it did go up to 6.9 , 5.5 this morning. White blood cell count 7.0, hemoglobin 12.5, platelet count 120 on admission, 95 this morning. Sodium 134, potassium 5.5, BUN 39 and creatinine 6.9 this morning. On admission the patient's creatinine was 7.1. EKG on arrival here showed normal sinus rhythm with a QTC of 493. Blood pressure 120/60 with a heart rate in the 80s, 98% on room air. At the time of my examination this morning, patient is currently undergoing hemodialysis. He denies any further symptoms of chest discomfort and his nausea has also resolved. 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 Past Anesthesia/Blood Transfusion Reactions: No Reported Reaction Additional Past Anesthesia/Blood Transfusion Reaction / Comment(s): Pt states he has woken during surgeries in the past. Date of Last Stent Placement:: 2008 Smoking Status: Former smoker - Past Family History Mother Family Medical History: Congestive Heart Failure (CHF) Additional Family Medical History / Comment(s): Mother lived to be 89 yrs old. Father Family Medical History: Congestive Heart Failure (CHF) Additional Family Medical History / Comment(s): Father lived to be 93 yrs old. Brother(s) Family Medical History: Congestive Heart Failure (CHF) Additional Family Medical History / Comment(s): Brother at the age of 67yrs. Medications and Allergies Home Medications Medication Instructions Recorded Confirmed Type Aspirin [Adult Low Dose Aspirin EC] 81 mg PO DAILY 10/23/16 09/12/18 History Atorvastatin [Lipitor] 10 mg PO HS 10/23/16 09/12/18 History Ergocalciferol (Vitamin D2) 50,000 unit PO Q14D 10/23/16 09/12/18 History [Vitamin D2] Sodium Polystyrene Sulfonate [SPS] 30 gm PO SUSA 10/23/16 09/12/18 History hydrALAZINE HCL 50 mg PO DAILY 10/23/16 09/12/18 History Gabapentin [Neurontin] 300 mg PO BID 08/29/17 09/12/18 History Insulin Aspart [NovoLOG Flexpen] 13 units SQ AC-SUPPER 08/29/17 09/12/18 History Insulin Aspart [NovoLOG Flexpen] 15 units SQ AC-BRKFST 08/29/17 09/12/18 History Insulin Aspart [NovoLOG Flexpen] 18 units SQ AC-LUNCH 08/29/17 09/12/18 History Pyridoxine [Vitamin B-6] 100 mg PO DAILY 08/29/17 09/12/18 History diphenhydrAMINE [Benadryl] 25 mg PO DAILY 08/29/17 09/12/18 History Folic Acid 0.8 mg PO DAILY 12/07/17 09/12/18 History Cinacalcet HCl [Sensipar] 60 mg PO MOTUWETHFRSA 05/08/18 09/12/18 History Metoprolol Succinate (ER) [Toprol 50 mg PO DAILY 05/08/18 09/12/18 History Xl] Calcium Acetate [Phoslo] 2,668 mg PO TID-W/MEALS 09/12/18 09/12/18 History Cyanocobalamin [Vitamin B-12] 500 mcg PO DAILY 09/12/18 09/12/18 History Furosemide [Lasix] 80 mg PO Q12HR 09/12/18 09/12/18 History HYDROcodone/APAP 5-325MG [[place] 1 tab PO DAILY 09/12/18 09/12/18 History 5-325] Insulin NPH Human Isophane 16 unit SQ HS 09/12/18 09/12/18 History [humuLIN N] Ondansetron HCl [Zofran] 8 mg PO DAILY PRN 09/12/18 09/12/18 History Pioglitazone [Actos] 15 mg PO DAILY 09/12/18 09/12/18 History Allergies Allergy/AdvReac Type Severity Reaction Status Date / Time No Known Allergies Allergy Verified 09/12/18 07:10 Physical Exam Vitals: Vital Signs Temp Pulse Resp BP Pulse Ox 09/13/18 11:29 18 09/13/18 08:00 97.7 F 92 18 131/70 95 09/13/18 05:05 97.3 F L 85 18 116/59 97 09/13/18 00:06 97 16 99/54 93 L 09/12/18 21:00 97.8 F 98 16 99/51 95 09/12/18 16:00 98.1 F 87 18 133/68 94 L 09/12/18 12:00 97.6 F 18 142/88 97 Intake and Output 09/12/18 09/13/18 09/13/18 22:59 06:59 14:59 Intake Total 240 200 Balance 240 200 Intake: Oral 240 200 Other: # Voids 1 0 1 Weight 119 kg PHYSICAL EXAMINATION: GENERAL: 63-year-old gentleman in no acute distress at the time of my examination HEENT: Head is atraumatic, normocephalic. Pupils equal, round. Sclera anicteric. Conjunctiva are clear. Mucous membranes of the mouth are moist. Neck is supple. There is no elevated jugular venous pressure. No carotid bruit is heard. HEART EXAMINATION: Heart S1, S2 normal. No murmur or gallop heard. CHEST EXAMINATION: Lungs are clear to auscultation and precussion. No chest wall tenderness is noted on palpation or with deep breathing. ABDOMEN: Soft, nontender. Bowel sounds are heard. No organomegaly noted. EXTREMITIES: 2+ peripheral pulses with no evidence of peripheral edema and no calf tenderness noted. NEUROLOGIC [patient is awake, alert and oriented 3 . Results 09/13/18 05:54 09/13/18 05:54 Cardiac Enzymes 09/13/18 Range/Units 05:54 AST 28 (17-59) U/L CBC 09/13/18 Range/Units 05:54 WBC 7.0 (3.8-10.6) k/uL RBC 5.54 (4.30-5.90) m/uL Hgb 12.5 L (13.0-17.5) gm/dL Hct 40.0 (39.0-53.0) % Plt Count 95 L (150-450) k/uL Comprehensive Metabolic Panel 09/12/18 09/13/18 Range/Units 23:46 05:54 Sodium 134 L (137-145) mmol/L Potassium 5.0 5.5 H (3.5-5.1) mmol/L Chloride 96 L (98-107) mmol/L Carbon Dioxide 25 (22-30) mmol/L BUN 39 H (9-20) mg/dL Creatinine 6.90 H (0.66-1.25) mg/dL Glucose 196 H (74-99) mg/dL Calcium 8.3 L (8.4-10.2) mg/dL AST 28 (17-59) U/L ALT 32 (21-72) U/L Alkaline Phosphatase 114 (38-126) U/L Total Protein 5.9 L (6.3-8.2) g/dL Albumin 3.7 (3.5-5.0) g/dL Current Medications Generic Name Dose Route Start Last Admin Trade Name Freq PRN Reason Stop Dose Admin Hydrocodone Bitart/Acetaminophen 1 each 09/12/18 19:16 09/13/18 06:17 [place] 5-325 PO 1 each DAILY ANGEL LUIS Administration Aspirin 81 mg 09/13/18 09:00 Aspirin PO DAILY ANGEL LUIS Atorvastatin Calcium 10 mg 09/12/18 21:00 09/12/18 21:44 Lipitor PO 10 mg HS ANGEL LUIS Administration Calcium Acetate 2,668 mg 09/12/18 12:30 09/13/18 09:45 Phoslo PO Not Given TID-W/MEALS ANGEL LUIS Cinacalcet 60 mg 09/12/18 12:15 09/12/18 19:39 Sensipar PO Not Given [id number] [facility] Cyanocobalamin 500 mcg 09/13/18 09:00 Vitamin B-12 PO DAILY [facility] Diphenhydramine HCl 25 mg 09/13/18 21:00 Benadryl PO HS [facility] Enoxaparin Sodium 40 mg 09/13/18 09:00 Lovenox SQ DAILY [facility] Folic Acid 1 mg 09/13/18 09:00 Folic Acid PO DAILY [facility] Furosemide 80 mg 09/12/18 21:00 09/12/18 21:44 Lasix PO 80 mg Q12HR [facility] Administration Gabapentin 300 mg 09/12/18 21:00 09/13/18 09:39 Neurontin PO 300 mg BID [facility] Administration Hydralazine HCl 50 mg 09/13/18 09:00 Apresoline PO DAILY [facility] Insulin Aspart 13 unit 09/12/18 17:30 09/12/18 16:58 Novolog SQ 13 unit AC-SUPPER [facility] Administration Insulin Aspart 15 unit 09/13/18 07:30 09/13/18 09:39 Novolog SQ 15 unit AC-BRKFST [facility] Administration Insulin Aspart 18 unit 09/12/18 12:30 09/12/18 19:39 Novolog SQ Not Given AC-LUNCH [facility] Insulin Human NPH 16 unit 09/12/18 21:00 09/12/18 21:44 Humulin N SQ 16 unit [facility] Administration Metoprolol Succinate 50 mg 09/13/18 09:00 Toprol Xl PO DAILY [facility] Naloxone HCl 0.2 mg 09/12/18 04:20 Narcan IV Q2M PRN Opioid Reversal Ondansetron HCl 8 mg 09/12/18 12:08 Zofran PO DAILY PRN Nausea Pantoprazole Sodium 40 mg 09/13/18 07:30 09/13/18 06:18 Protonix PO 40 mg AC-BRKFST [facility] Administration Pioglitazone HCl 15 mg 09/13/18 09:00 09/13/18 09:39 Actos PO 15 mg DAILY [facility] Administration Pyridoxine HCl 100 mg 09/13/18 09:00 Vitamin B-6 PO DAILY [facility] Intake and Output 09/12/18 09/13/18 09/13/18 22:59 06:59 14:59 Intake Total 240 200 Balance 240 200 Intake: Oral 240 200 Other: # Voids 1 0 1 Weight 119 kg 09/13/18 05:54 09/13/18 05:54 EKG Interpretations (text) EKG shows a normal sinus rhythm with a QTc measuring 493. Assessment and Plan Plan: Assessment and plan #1 abdominal pain and nausea #2 hyperkalemia with a potassium of 6.9 on arrival #3 prolonged QT likely secondary to hyperkalemia. #4 anemia of chronic disease #5 diabetes #6 hypertension #7 hyperlipidemia #8 coronary artery disease history with prior PCI. Plan We will obtain an echocardiogram with Doppler study. We will also repeat an EKG this morning. Patient's prolonged QT is likely secondary to elevated potassium. DNP note has been reviewed, I agree with a documented findings and plan of care. Patient was seen and examined.
[2018-09-13] MEDS: INSULIN ASPART (NovoLOG) 100 UNIT/ML VIAL SQ SCH (12:06)
--- NOTE | 2018-09-13 14:27 | P.DS ---
Providers Date of admission: 09/12/18 04:47 Expected date of discharge: 09/13/18 Attending physician: Debbie Bernal Consults: 09/12/18 04:21 Consult Physician Routine Consulting Provider: Jennifer Langford Consult Reason/Comments: Hyperkalemia Do you want consulting provider notified?: Yes 09/12/18 08:44 Consult Physician Routine Consulting Provider: Nguyen Huynh Consult Reason/Comments: qt prolong Do you want consulting provider notified?: Yes Primary care physician: Jazmin Castaneda [facility] Course: Discharge diagnosis 1. Hyperkalemia potassium 6.9. Patient received potassium lowering cocktail from nephrology. Patient to get hemodialysis again today and reassess. Potassium the same 5.5. Patient received hemodialysis. Patient has been cleared for discharge from nepology. Per nephrology patient was stressed the importance of taking Kayexalate daily at least 5 times a week 2. End-stage renal disease. Patient received hemodialysis Sunday. 3. QT prolonged. EKG completed showing normal sinus rhythm with Prolonged QT. Cardiology Services Have Been Consulted This Is Likely Related to the Hyperkalemia. 2-D echo has been taken. Patient to follow-up outpatient with cardiology services. Zofran has been DC'd upon discharge due to QT prolonged 4. Anemia of chronic disease 5. Diabetes mellitus type 2. Continue home insulin 6. Essential hypertension 7. Hyperlipidemia Hospital course This is a 63-year-old female patient of Dr. Castaneda. Patient presented for complaints of hyperkalemia. Patient does report he's been having nausea and upper abdominal discomfort. Patient reports he did go to hemodialysis yesterday and did take his scheduled Kayexalate from nephrology services the potassium elevated at 6.5. Patient has a known past medical history of heart failure, diabetes mellitus, hyperlipidemia, hypertension, end-stage renal disease on hemodialysis Sunday. EKG completed in ER showing normal sinus rhythm with prolonged QT. Per nephrology services patient was given 10 units IV insulin along with amp of D50. Discussed case with nephrology services patient to get hemodialysis again today and reassess potassium level. Patient possibly be DC'd tomorrow if potassium level corrects. At this time patient denies chest pain or shortness breath. Patient denies nausea vomiting or diarrhea. Patient denies any urinary burning or frequency. On 09/13/2018 patient is very eager to go home. Patient to receive hemodialysis. Dressing the same 5.5. Per nephrology service is patient to be DC'd home after hemodialysis. Patient stressed the importance he Kayexalate at least 5 times a week. Patient denies chest pain or shortness breath. Patient denies nausea vomiting or diarrhea. Patient denies any urinary burning or frequency. I performed an examination of the patient and discussed their management with the Nurse Practitioner. I have reviewed the Nurse Practitioner's notes and agree with the documented findings and plan of care Patient Condition at Discharge: Stable Plan - Discharge Summary Discharge Rx Participant: No New Discharge Prescriptions: Continue Sodium Polystyrene Sulfonate [SPS] 30 gm PO SUSA hydrALAZINE HCL 50 mg PO DAILY Atorvastatin [Lipitor] 10 mg PO HS Ergocalciferol (Vitamin D2) [Vitamin D2] 50,000 unit PO Q14D Aspirin [Adult Low Dose Aspirin EC] 81 mg PO DAILY Pyridoxine [Vitamin B-6] 100 mg PO DAILY Gabapentin [Neurontin] 300 mg PO BID diphenhydrAMINE [Benadryl] 25 mg PO DAILY Insulin Aspart [NovoLOG Flexpen] 15 units SQ AC-BRKFST Insulin Aspart [NovoLOG Flexpen] 18 units SQ AC-LUNCH Insulin Aspart [NovoLOG Flexpen] 13 units SQ AC-SUPPER Folic Acid 0.8 mg PO DAILY Cinacalcet HCl [Sensipar] 60 mg PO MOTUWETHFRSA Metoprolol Succinate (ER) [Toprol XL] 50 mg PO DAILY HYDROcodone/APAP 5-325MG [[place] 5-325] 1 tab PO DAILY Pioglitazone [Actos] 15 mg PO DAILY Cyanocobalamin [Vitamin B-12] 500 mcg PO DAILY Furosemide [Lasix] 80 mg PO Q12HR Calcium Acetate [PhosLo] 2,668 mg PO TID-W/MEALS Insulin NPH Human Isophane [humuLIN N] 16 unit SQ HS Discontinued Ondansetron HCl [Zofran] 8 mg PO DAILY PRN PRN Reason: Nausea Discharge Medication List Aspirin [Adult Low Dose Aspirin EC] 81 mg PO DAILY 10/23/16 [History] Atorvastatin [Lipitor] 10 mg PO HS 10/23/16 [History] Ergocalciferol (Vitamin D2) [Vitamin D2] 50,000 unit PO Q14D 10/23/16 [History] Sodium Polystyrene Sulfonate [SPS] 30 gm PO SUSA 10/23/16 [History] hydrALAZINE HCL 50 mg PO DAILY 10/23/16 [History] Gabapentin [Neurontin] 300 mg PO BID 08/29/17 [History] Insulin Aspart [NovoLOG Flexpen] 13 units SQ AC-SUPPER 08/29/17 [History] Insulin Aspart [NovoLOG Flexpen] 15 units SQ AC-BRKFST 08/29/17 [History] Insulin Aspart [NovoLOG Flexpen] 18 units SQ AC-LUNCH 08/29/17 [History] Pyridoxine [Vitamin B-6] 100 mg PO DAILY 08/29/17 [History] diphenhydrAMINE [Benadryl] 25 mg PO DAILY 08/29/17 [History] Folic Acid 0.8 mg PO DAILY 12/07/17 [History] Cinacalcet HCl [Sensipar] 60 mg PO MOTUWETHFRSA 05/08/18 [History] Metoprolol Succinate (ER) [Toprol XL] 50 mg PO DAILY 05/08/18 [History] Calcium Acetate [PhosLo] 2,668 mg PO TID-W/MEALS 09/12/18 [History] Cyanocobalamin [Vitamin B-12] 500 mcg PO DAILY 09/12/18 [History] Furosemide [Lasix] 80 mg PO Q12HR 09/12/18 [History] HYDROcodone/APAP 5-325MG [[place] 5-325] 1 tab PO DAILY 09/12/18 [History] Insulin NPH Human Isophane [humuLIN N] 16 unit SQ HS 09/12/18 [History] Pioglitazone [Actos] 15 mg PO DAILY 09/12/18 [History] Follow up Appointment(s)/Referral(s): Jazmin Castaneda MD [Primary Care Provider] - 09/19/18 2:30 pm Ney Dougherty DO [STAFF PHYSICIAN] - 1 Week (Please follow up with Dr. Dougherty at hemodialysis.) Rl Puente MD [STAFF PHYSICIAN] - 1 Week Patient Instructions/Handouts: Potassium Content of Foods List (DC), Hyperkalemia (DC) Activity/Diet/Wound Care/Special Instructions: Patient may go home today after HD. Renal diet Activity as tolerated Discharge Disposition: HOME SELF-CARE
[2018-09-13] MEDS: CINACALCET 30 MG TAB PO SCH (15:21)
[2018-09-13] MEDS: FUROSEMIDE 80 MG TAB PO SCH (15:21)
[2018-09-13 15:27] VITALS: BP 109/56; PULSE 96
[2018-09-13 16:18] LABS: Glucose,Whole Blood 55 mg/dL (75-99)
[2018-09-13 16:36] LABS: Glucose,Whole Blood 67 mg/dL (75-99)
[2018-09-13 16:54] LABS: Glucose,Whole Blood 75 mg/dL (75-99)
[2018-09-13 17:23] LABS: Glucose,Whole Blood 81 mg/dL (75-99)
--- NOTE | 2018-09-13 18:38 | ECHOF ---
Referral Reason:prolonged qt MEASUREMENTS -------- HEIGHT: 170.2 cm WEIGHT: 118.8 kg BP: Ao Diam: 4.1 cm (2.0 - 3.7) AV Cusp: 2.3 cm (1.5 - 2.6) LA Diam: 3.7 cm (2.7 - 3.8) MV E Pro: 0.36 m/s MV DecT: 158 ms MV A Pro: 0.73 m/s MV E/A Ratio: 0.50 RAP: 5.00 mmHg RVSP: 11.86 mmHg FINDINGS -------- Sinus rhythm. This was a technically difficult study with suboptimal views. Limited Study Very difficult images. Unable to comment on LV function. The RV was not well visualized. The left atrium was not well visualized. The right atrium was not well visualized. 5.0mg of Lumason was utilized for enhancement of images The aortic valve was not well visualized. The mitral valve was not well visualized. The tricuspid valve was not well visualized. The pulmonic valve was not well visualized. CONCLUSIONS -------- 1. Sinus rhythm. 2. This was a technically difficult study with suboptimal views. 3. Limited Study 4. Very difficult images. Unable to comment on LV function. 5. The RV was not well visualized. 6. The left atrium was not well visualized. 7. The right atrium was not well visualized. 8. 5.0mg of Lumason was utilized for enhancement of images 9. The aortic valve was not well visualized. 10. The mitral valve was not well visualized. 11. The tricuspid valve was not well visualized. 12. The pulmonic valve was not well visualized. CASINO RUNNER: Chloe Pineda RD
[2018-09-13 19:42] LABS: Hemoglobin A1C 8.9 % (4.0-6.0)
[2018-09-14] MEDS ORDERED: ENOXAPARIN 30 MG/0.3 ML SYRINGE SQ SCH (09:00)
== END 2018-09-13 17:33 | disposition home or self-care (01) | DRG 640 ==
LOC: EC 23:20 → 3SCARD 09-12 04:47
PROVIDERS: ADMIT Internal Medicine; ATTEND Internal Medicine
PROC: 5A1D70Z Performance of Urinary Filtration, Intermittent, Less than 6 Hours Per Day (ICD-10-PCS; principal; 2018-09-12)
PROC: 5A1D70Z Performance of Urinary Filtration, Intermittent, Less than 6 Hours Per Day (ICD-10-PCS; 2018-09-13)
DX: E87.5 Hyperkalemia (principal); N18.6 End stage renal disease; I13.2 Hypertensive heart and chronic kidney disease with heart failure and with stage 5 chronic kidney disease, or end stage renal disease; E11.22 Type 2 diabetes mellitus with diabetic chronic kidney disease; I45.81 Long QT syndrome; I50.9 Heart failure, unspecified; D63.1 Anemia in chronic kidney disease; I44.4 Left anterior fascicular block; I25.10 Atherosclerotic heart disease of native coronary artery without angina pectoris; E78.5 Hyperlipidemia, unspecified; Z79.82 Long term (current) use of aspirin; Z79.4 Long term (current) use of insulin; Z79.890 Hormone replacement therapy; Z79.899 Other long term (current) drug therapy; Z99.2 Dependence on renal dialysis; Z95.5 Presence of coronary angioplasty implant and graft; Z87.891 Personal history of nicotine dependence; Z96.641 Presence of right artificial hip joint; Z82.49 Family history of ischemic heart disease and other diseases of the circulatory system
CPT/HCPCS: 36415; 80053; 82150; 83036; 83690; 84132; 85025; 90935; 93005; 93306; 96374; 96375; 96376; 99285

== ENCOUNTER 2018-09-13 22:50 | Emergency (ER) | payer MEDICARE, BC ==
[2018-09-13 23:05] VITALS: TEMP 97.5
[2018-09-13] MEDS ORDERED: ONDANSETRON 4 MG/2 ML VIAL IVP STA (23:13)
[2018-09-13] MEDS ORDERED: PANTOPRAZOLE 40 MG/10 ML VIAL IVP STA (23:13)
[2018-09-13] MEDS ORDERED: SODIUM CHLORIDE 0.9% 500 ML 500 ML IV STA (23:13)
[2018-09-13] MEDS ORDERED: MORPHINE SULFATE 4 MG/ML SYRINGE IV STA (23:13)
[2018-09-13 23:36] LABS: Anisocytosis Moderate; Basophils % (A) 1 %; Eosinophils # (A) 0.7 k/uL (0-0.7); Eosinophils % (A) 10 %; HCT 42.8 % (39.0-53.0); HGB 12.7 gm/dL (13.0-17.5); Hypochromasia Moderate; Lymphocytes # (A) 1.5 k/uL (1.0-4.8); Lymphocytes % (A) 21 %; MCH 21.2 pg (25.0-35.0); MCHC 29.8 g/dL (31.0-37.0); MCV 71.2 fL (80.0-100.0); Mean Platelet Volume 6.4; Microcytosis Marked; Monocytes # (A) 0.4 k/uL (0-1.0); Monocytes % (A) 6 %; Neutrophils # (A) 4.2 k/uL (1.3-7.7); Neutrophils % (A) 59 %; Poikilocytosis Slight; RBC 6.01 m/uL (4.30-5.90); RDW 21.4 % (11.5-15.5); WBC 7.2 k/uL (3.8-10.6)
[2018-09-13 23:45] LABS: Albumin 3.8 g/dL (3.5-5.0); Calcium 7.9 mg/dL (8.4-10.2); Potassium 5.1 mmol/L (3.5-5.1); Total Bilirubin 0.8 mg/dL (0.2-1.3); Total Protein 6.1 g/dL (6.3-8.2)
[2018-09-14 00:09] LABS: Platelet Count 93 k/uL (150-450)
--- NOTE | 2018-09-14 00:16 | CT ---
EXAM: CT Abdomen and Pelvis Without Intravenous Contrast CLINICAL HISTORY: Abdominal pain TECHNIQUE: Axial computed tomography images of the abdomen and pelvis without intravenous contrast. CTDI is 25.6 mGy and DLP is 1463 mGy-cm. This CT exam was performed using one or more of the following dose reduction techniques: automated exposure control, adjustment of the mA and/or kV according to patient size, and/or use of iterative reconstruction technique. COMPARISON: 12/08/2017 FINDINGS: Lung bases: Unremarkable. No mass. No consolidation. ABDOMEN: Liver: Unremarkable. Gallbladder and bile ducts: Subcentimeter cholelithiasis layering posteriorly in the gallbladder, similar to previous exam. No ductal dilation. Pancreas: Unremarkable. No ductal dilation. Spleen: Unremarkable. No splenomegaly. Adrenals: Unremarkable. No mass. Kidneys and ureters: The kidneys are atrophic in appearance with multiple stable-appearing cortical cysts identified. The largest cyst on the left measures 7.3 cm in diameter with thin marginal calcifications anteriorly. No significant alteration from previous exam. Stomach and bowel: Evaluation of bowel mucosa is limited without contrast. There is moderate stool throughout the colon. No obstruction. PELVIS: Appendix: A normal caliber appendix is noted in the right lower quadrant. Bladder: The bladder wall is thickened with evidence of mural fat deposition, similar to previous exam. No stones. Reproductive: Unremarkable as visualized. ABDOMEN and PELVIS: Intraperitoneal space: Unremarkable. No free air. No significant fluid collection. Bones/joints: A right total hip arthroplasty is again noted. Stable degenerative changes of the lumbar spine with multiple Schmorl's nodes identified at various levels. There is a stable grade 1 anterolisthesis of L5 on S1 secondary to bilateral L5 spondylolysis. No acute fracture. No dislocation. Soft tissues: Unremarkable. Vasculature: Atherosclerotic calcification of the abdominal aorta is noted without significant aneurysm. Lymph nodes: Unremarkable. No enlarged lymph nodes. IMPRESSION: 1. A normal caliber appendix is noted in the right lower quadrant. No evidence for bowel obstruction. Evaluation of bowel mucosa is slightly limited without contrast. Moderate stool in the colon. No free intraperitoneal fluid or pneumoperitoneum. 2. Subcentimeter cholelithiasis layering posteriorly in the gallbladder, similar to previous exam. No CT evidence for pericholecystic fluid or biliary dilatation. Please correlate clinically. 3. Stable bilateral renal cortical cysts. No renal collecting stones or hydronephrosis. 4. Stable mucosal prominence of the bladder suggesting chronic inflammatory changes. No CT evidence for active inflammation significant alteration from previous exam. Please correlate with urinalysis, as appropriate. 5. Degenerative changes of the lumbar spine with grade 1 anterolisthesis of L5 on S1 secondary to stable appearing bilateral L5 spondylolysis.
[2018-09-14] MEDS ORDERED: ONDANSETRON ODT 4 MG TAB PO STA (01:19)
[2018-09-14] MEDS ORDERED: Acetaminophen-Codeine 300-30mg TAB PO STA (01:19)
[2018-09-14] MEDS ORDERED: ACET/COD 300 MG/30 MG STARTER PACK 6 TAB BTL PO STA (01:19)
[2018-09-14] MEDS ORDERED: ONDANSETRON 4 MG ODT STARTER PACK 2 TAB BTL PO STA (01:19)
--- NOTE | 2018-09-14 01:22 | ED ---
Abdominal Pain HPI - General Chief Complaint: Nausea/Vomiting/Diarrhea Stated Complaint: Nausea Time Seen by Provider: 09/13/18 23:08 Source: patient, RN notes reviewed, old records reviewed Mode of arrival: ambulatory Limitations: no limitations - History of Present Illness Initial Comments: This 63-year-old male to the ER for evaluation. Presents today for evaluation regarding abdominal pain. Patient does have recurrent abdominal pain usually after dialysis. Prior cause noted. No fevers. Patient has no abdominal surgical history. He states he is to do. He'll dialysis but never an issue with pain as well. No fevers. No nausea vomiting or diarrhea currently. MD Complaint: abdominal pain -: hour(s), days(s) Location: diffuse, periumbilical Radiation: epigastric Migration to: suprapubic Severity: moderate Severity scale (1-10): 6 Quality: stabbing, aching Consistency: intermittent, colicky Improves With: nothing Worsens With: eating Associated Symptoms: nausea, constipation - Related Data Home Medications Medication Instructions Recorded Confirmed Aspirin [Adult Low Dose Aspirin EC] 81 mg PO DAILY 10/23/16 09/12/18 Atorvastatin [Lipitor] 10 mg PO HS 10/23/16 09/12/18 Ergocalciferol (Vitamin D2) 50,000 unit PO Q14D 10/23/16 09/12/18 [Vitamin D2] Sodium Polystyrene Sulfonate [SPS] 30 gm PO SUSA 10/23/16 09/12/18 hydrALAZINE HCL 50 mg PO DAILY 10/23/16 09/12/18 Gabapentin [Neurontin] 300 mg PO BID 08/29/17 09/12/18 Insulin Aspart [NovoLOG Flexpen] 13 units SQ AC-SUPPER 08/29/17 09/12/18 Insulin Aspart [NovoLOG Flexpen] 15 units SQ AC-BRKFST 08/29/17 09/12/18 Insulin Aspart [NovoLOG Flexpen] 18 units SQ AC-LUNCH 08/29/17 09/12/18 Pyridoxine [Vitamin B-6] 100 mg PO DAILY 08/29/17 09/12/18 diphenhydrAMINE [Benadryl] 25 mg PO DAILY 08/29/17 09/12/18 Folic Acid 0.8 mg PO DAILY 12/07/17 09/12/18 Cinacalcet HCl [Sensipar] 60 mg PO [id number] 05/08/18 09/12/18 Metoprolol Succinate (ER) [Toprol 50 mg PO DAILY 05/08/18 09/12/18 XL] Calcium Acetate [PhosLo] 2,668 mg PO TID-W/MEALS 09/12/18 09/12/18 Cyanocobalamin [Vitamin B-12] 500 mcg PO DAILY 09/12/18 09/12/18 Furosemide [Lasix] 80 mg PO Q12HR 09/12/18 09/12/18 HYDROcodone/APAP 5-325MG [[place] 1 tab PO DAILY 09/12/18 09/12/18 5-325] Insulin NPH Human Isophane 16 unit SQ HS 09/12/18 09/12/18 [humuLIN N] Pioglitazone [Actos] 15 mg PO DAILY 09/12/18 09/12/18 Allergies Allergy/AdvReac Type Severity Reaction Status Date / Time No Known Allergies Allergy Verified 09/13/18 23:04 Review of Systems ROS Statement: Those systems with pertinent positive or pertinent negative responses have been documented in the HPI. ROS Other: All systems not noted in ROS Statement are negative. Past Medical History Past Medical History: Heart Failure, Diabetes Mellitus, Hyperlipidemia, Hypertension, Renal Disease Additional Past Medical History / Comment(s): ESRD with hemodailysis MWF-last received 09/11/18, abdominal pain/nausea after sensipar in the past but not lately, hyperkalemia, chronic anemia, IDDM type II, neuropathy bilateral feet, bilateral eye retinopathy and leaking vessel behind R eye and recently told also now behind L eye, past R great toe diabetic ulcer which was healed thru [facility] but recently returned-bean roaster is seeing pt and scaping the wound. 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 Past Anesthesia/Blood Transfusion Reactions: No Reported Reaction Additional Past Anesthesia/Blood Transfusion Reaction / Comment(s): Pt states he has woken during surgeries in the past. Date of Last Stent Placement:: 2008 Past Psychological History: No Psychological Hx Reported Smoking Status: Former smoker - Past Family History Mother Family Medical History: Congestive Heart Failure (CHF) Additional Family Medical History / Comment(s): Mother lived to be 89 yrs old. Father Family Medical History: Congestive Heart Failure (CHF) Additional Family Medical History / Comment(s): Father lived to be 93 yrs old. Brother(s) Family Medical History: Congestive Heart Failure (CHF) Additional Family Medical History / Comment(s): Brother at the age of 67yrs. General Exam Limitations: no limitations General appearance: alert, in no apparent distress Head exam: Present: atraumatic, normocephalic, normal inspection Eye exam: Present: normal appearance, PERRL, EOMI. Absent: scleral icterus, conjunctival injection, periorbital swelling ENT exam: Present: normal exam, mucous membranes moist Neck exam: Present: normal inspection. Absent: tenderness, meningismus, lymphadenopathy Respiratory exam: Present: normal lung sounds bilaterally. Absent: respiratory distress, wheezes, rales, rhonchi, stridor Cardiovascular Exam: Present: regular rate, normal rhythm, normal heart sounds. Absent: systolic murmur, diastolic murmur, rubs, gallop, clicks GI/Abdominal exam: Present: soft, tenderness, normal bowel sounds. Absent: distended, guarding, rebound, rigid Extremities exam: Present: normal inspection, full ROM, normal capillary refill. Absent: tenderness, pedal edema, joint swelling, calf tenderness Back exam: Present: normal inspection Neurological exam: Present: alert, oriented X3, CN II-XII intact Psychiatric exam: Present: normal affect, normal mood Skin exam: Present: warm, dry, intact, normal color. Absent: rash Course Vital Signs 09/13/18 09/14/18 09/14/18 22:54 00:10 01:42 Temperature 97.5 F L 97.5 F L Pulse Rate 85 77 78 Respiratory 24 16 17 Rate Blood Pressure 104/67 103/70 116/75 O2 Sat by Pulse 99 97 95 Oximetry Medical Decision Making - Medical Decision Making 65 male the ER for evaluation of bowel pain severe abdominal pain. Pain is resolved here in the ER, CT abdomen pelvis is negative for acute disease and patient can be discharged home - Lab Data Result diagrams: 09/13/18 23:28 09/13/18 23:28 Lab Results 09/13/18 09/13/18 09/13/18 Range/Units 23:28 23:28 23:28 WBC 7.2 (3.8-10.6) k/uL RBC 6.01 H (4.30-5.90) m/uL Hgb 12.7 L (13.0-17.5) gm/dL Hct 42.8 (39.0-53.0) % MCV 71.2 L (80.0-100.0) fL MCH 21.2 L (25.0-35.0) pg MCHC 29.8 L (31.0-37.0) g/dL RDW 21.4 H (11.5-15.5) % Plt Count 93 L (150-450) k/uL Neutrophils % 59 % Lymphocytes % 21 % Monocytes % 6 % Eosinophils % 10 % Basophils % 1 % Neutrophils # 4.2 (1.3-7.7) k/uL Lymphocytes # 1.5 (1.0-4.8) k/uL Monocytes # 0.4 (0-1.0) k/uL Eosinophils # 0.7 (0-0.7) k/uL Basophils # 0.0 (0-0.2) k/uL Manual Slide Review Performed Hypochromasia Moderate Poikilocytosis Slight Anisocytosis Moderate Microcytosis Marked Sodium 131 L (137-145) mmol/L Potassium 5.1 (3.5-5.1) mmol/L Chloride 94 L (98-107) mmol/L Carbon Dioxide 22 (22-30) mmol/L Anion Gap 15 mmol/L BUN 33 H (9-20) mg/dL Creatinine 6.01 H (0.66-1.25) mg/dL Est GFR (CKD-EPI)AfAm 10 (>60 ml/min/1.73 sqM) Est GFR (CKD-EPI)NonAf 9 (>60 ml/min/1.73 sqM) Glucose 353 H (74-99) mg/dL Plasma Lactic Acid Yonny 1.6 (0.7-2.0) mmol/L Calcium 7.9 L (8.4-10.2) mg/dL Total Bilirubin 0.8 (0.2-1.3) mg/dL AST 31 (17-59) U/L ALT 31 (21-72) U/L Alkaline Phosphatase 140 H (38-126) U/L Total Protein 6.1 L (6.3-8.2) g/dL Albumin 3.8 (3.5-5.0) g/dL Amylase 33 (30-110) U/L Lipase 35 (23-300) U/L - Radiology Data Radiology results: report reviewed (CT of the abdomen and pelvis is negative for acute disease), image reviewed Disposition Clinical Impression: Abdominal pain Disposition: HOME SELF-CARE Condition: Good Instructions (If sedation given, give patient instructions): Abdominal Pain (ED ) Is patient prescribed a controlled substance at d/c from ED?: No Referrals: Jazmin Castaneda MD [Primary Care Provider] - 1-2 days
[2018-09-14 01:43] VITALS: BP 116/75; PULSE 78; RESP 17
== END 2018-09-14 01:55 | disposition home or self-care (01) ==
LOC: EC 22:50
DX: R10.33 Periumbilical pain (principal); R11.2 Nausea with vomiting, unspecified; R19.7 Diarrhea, unspecified; I13.2 Hypertensive heart and chronic kidney disease with heart failure and with stage 5 chronic kidney disease, or end stage renal disease; E11.22 Type 2 diabetes mellitus with diabetic chronic kidney disease; N18.6 End stage renal disease; I50.9 Heart failure, unspecified; E78.5 Hyperlipidemia, unspecified; E11.40 Type 2 diabetes mellitus with diabetic neuropathy, unspecified; Z99.2 Dependence on renal dialysis; Z95.5 Presence of coronary angioplasty implant and graft; Z96.89 Presence of other specified functional implants; Z87.891 Personal history of nicotine dependence; Z79.82 Long term (current) use of aspirin; Z79.4 Long term (current) use of insulin; Z79.891 Long term (current) use of opiate analgesic; Z79.899 Other long term (current) drug therapy
CPT/HCPCS: 99284; 96374; 96375 ×2; 36415; 80053; 82150; 83605; 83690; 85025; 74176; J2270; J2405; S0119; C9113

== ENCOUNTER 2018-10-25 18:50 | Emergency (ER) | payer MEDICARE, BC ==
[2018-10-25] MEDS ORDERED: diphenhydrAMINE 50 MG/ML 1 ML VIAL IVP STA (20:12)
[2018-10-25] MEDS ORDERED: KETOROLAC 30 MG/ML 1 ML VIAL IVP STA (20:12)
[2018-10-25] MEDS ORDERED: METOCLOPRAMIDE 5 MG/ML 2 ML VIAL IVP STA (20:12)
--- NOTE | 2018-10-25 21:00 | XR ---
EXAMINATION TYPE: XR knee complete RT DATE OF EXAM: 10/25/2018 COMPARISON: NONE HISTORY: Chronic knee pain TECHNIQUE: 3 views FINDINGS: There is a plate with screws fixing old supracondylar fracture of the distal femur. There i s moderate narrowing of the lateral joint space. There is genu valgus deformity. There is spurring of the femoral and tibial condyles laterally. IMPRESSION: Old distal femur fracture. Moderate osteoarthritis in the lateral joint space of the knee .
[2018-10-25 21:10] LABS: Anisocytosis Moderate; Basophils # (A) 0.1 k/uL (0-0.2); Basophils % (A) 1 %; Eosinophils # (A) 0.4 k/uL (0-0.7); Eosinophils % (A) 6 %; HCT 37.3 % (39.0-53.0); HGB 11.5 gm/dL (13.0-17.5); Hypochromasia Marked; Lymphocytes # (A) 1.4 k/uL (1.0-4.8); Lymphocytes % (A) 21 %; MCH 21.7 pg (25.0-35.0); MCHC 30.8 g/dL (31.0-37.0); MCV 70.3 fL (80.0-100.0); Mean Platelet Volume 7.1; Microcytosis Marked; Monocytes # (A) 0.5 k/uL (0-1.0); Monocytes % (A) 8 %; Neutrophils # (A) 3.9 k/uL (1.3-7.7); Neutrophils % (A) 60 %; Platelet Count 136 k/uL (150-450); Poikilocytosis Moderate; RDW 20.9 % (11.5-15.5); WBC 6.6 k/uL (3.8-10.6)
[2018-10-25 21:16] LABS: INR 1.1 (<1.2); Prothrombin Time 11.3 sec (9.0-12.0)
[2018-10-25 21:25] LABS: Albumin 4.1 g/dL (3.5-5.0); Calcium 9.7 mg/dL (8.4-10.2); Potassium 4.6 mmol/L (3.5-5.1); Total Bilirubin 0.8 mg/dL (0.2-1.3); Total Protein 6.4 g/dL (6.3-8.2)
--- NOTE | 2018-10-25 22:11 | ED ---
Nausea/Vomiting/Diarrhea HPI - General Chief complaint: Nausea/Vomiting/Diarrhea Stated complaint: NAUSEA, BACK OF RT KNEE PAINFUL Time Seen by Provider: 10/25/18 19:15 Source: patient Mode of arrival: wheelchair Limitations: no limitations - History of Present Illness Initial comments: The patient is a 63-year-old male presents to the emergency room with complaint of nausea and abdominal pain. He also reports right knee pain. The patient states that he has a same symptoms of nausea and abdominal pain after every hemodialysis session. He does go Sunday and Sunday. He has suffered from this for several months. He has talked to his plate grainer about this. He has also been seen in the emergency department for similar complaint. He does have medications at home for his nausea. States that he took the Zofran without improvement. He denies any fevers, chills or vomiting. No hematemesis, hematochezia or melanotic stools. Denies any diarrhea or constipation. The patient only makes urine every third day. He denies changes in his urination. He does get associated cramping in his periumbilical region. Denies a ripping or tearing sensation to his back. The patient has had a chronic history of right knee pain as well. States that his joint is "bone on bone" and he needs a knee replacement however he cannot receive this as his hemoglobin A1c is too high. He does have an orthopedic physician that he is following with. The patient ambulates with a cane and continues to be able to weight bear however it is painful. The pain is located on the lateral aspect of his right knee at the joint line. He is able to extend and flex without difficulty. No ankle or hip pain. Denies any joint swelling. No calf pain or tenderness. Denies a history of DVTs or PEs. He did see his primary care physician yesterday who performed an x-ray of the right knee. She told him that he needed to rest, ice and elevate his extremity. She also recommended that he take Motrin for his pain. - Related Data Home Medications Medication Instructions Recorded Confirmed Aspirin [Adult Low Dose Aspirin EC] 81 mg PO DAILY 10/23/16 10/25/18 Atorvastatin [Lipitor] 10 mg PO HS 10/23/16 10/25/18 Ergocalciferol (Vitamin D2) 50,000 unit PO Q14D 10/23/16 10/25/18 [Vitamin D2] Sodium Polystyrene Sulfonate [SPS] 30 gm PO SUSA 10/23/16 10/25/18 hydrALAZINE HCL 50 mg PO DAILY 10/23/16 10/25/18 Gabapentin [Neurontin] 300 mg PO BID 08/29/17 10/25/18 Insulin Aspart [NovoLOG Flexpen] See Protocol SQ ACHS 08/29/17 10/25/18 Pyridoxine [Vitamin B-6] 100 mg PO DAILY 08/29/17 10/25/18 diphenhydrAMINE [Benadryl] 25 mg PO DAILY 08/29/17 10/25/18 Folic Acid 0.8 mg PO DAILY 12/07/17 10/25/18 Cinacalcet HCl [Sensipar] 60 mg PO DAILY 05/08/18 10/25/18 Metoprolol Succinate (ER) [Toprol 50 mg PO DAILY 05/08/18 10/25/18 XL] Calcium Acetate [PhosLo] 2,668 mg PO TID-W/MEALS 09/12/18 10/25/18 Cyanocobalamin [Vitamin B-12] 500 mcg PO DAILY 09/12/18 10/25/18 Furosemide [Lasix] 80 mg PO BID 09/12/18 10/25/18 HYDROcodone/APAP 5-325MG [[place] 1 tab PO DAILY 09/12/18 10/25/18 5-325] Insulin NPH Human Isophane See Protocol SQ HS 10/25/18 10/25/18 [NovoLIN N] Levothyroxine Sodium [Synthroid] 300 mcg PO DAILY 10/25/18 10/25/18 Ondansetron HCl [Zofran] 8 mg PO Q8H PRN 10/25/18 10/25/18 Previous Rx's Medication Instructions Recorded Metoclopramide [Reglan] 10 mg PO TID PRN #15 tab 10/25/18 Allergies Allergy/AdvReac Type Severity Reaction Status Date / Time No Known Allergies Allergy Verified 10/25/18 20:08 Review of Systems ROS Statement: Those systems with pertinent positive or pertinent negative responses have been documented in the HPI. ROS Other: All systems not noted in ROS Statement are negative. 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 Past Anesthesia/Blood Transfusion Reactions: No Reported Reaction Additional Past Anesthesia/Blood Transfusion Reaction / Comment(s): Pt states he has woken during surgeries in the past. Date of Last Stent Placement:: 2008 Past Psychological History: No Psychological Hx Reported Smoking Status: Former smoker Past Alcohol Use History: None Reported Past Drug Use History: None Reported - Past Family History Mother Family Medical History: Congestive Heart Failure (CHF) Additional Family Medical History / Comment(s): Mother lived to be 89 yrs old. Father Family Medical History: Congestive Heart Failure (CHF) Additional Family Medical History / Comment(s): Father lived to be 93 yrs old. Brother(s) Family Medical History: Congestive Heart Failure (CHF) Additional Family Medical History / Comment(s): Brother at the age of 67yrs. General Exam Limitations: no limitations General appearance: alert, in no apparent distress Head exam: Present: atraumatic, normocephalic, normal inspection Eye exam: Present: normal appearance, PERRL, EOMI. Absent: scleral icterus, conjunctival injection, periorbital swelling ENT exam: Present: normal exam, mucous membranes moist Neck exam: Present: normal inspection. Absent: tenderness, meningismus, lymphadenopathy Respiratory exam: Present: normal lung sounds bilaterally. Absent: respiratory distress, wheezes, rales, rhonchi, stridor Cardiovascular Exam: Present: regular rate, normal rhythm, normal heart sounds. Absent: systolic murmur, diastolic murmur, rubs, gallop, clicks GI/Abdominal exam: Present: soft, tenderness, normal bowel sounds, other (The patient has mild tenderness around his periumbilical region). Absent: distended, guarding, rebound, rigid Extremities exam: Present: full ROM, normal capillary refill, other (The patient has tenderness to palpation of the right lateral ankle. No joint swelling. No calf pain or swelling. Negative anterior and posterior drawer signs. 2+ dorsalis pedis and posterior tibial pulses. intact 2 point discrimination and soft touch over the medial lateral and dorsal aspects of the leg. Reflexes are brisk bilaterally). Absent: tenderness, pedal edema, joint swelling, calf tenderness Back exam: Present: normal inspection Neurological exam: Present: alert, oriented X3, CN II-XII intact Psychiatric exam: Present: normal affect, normal mood Skin exam: Present: warm, dry, intact, normal color. Absent: rash Course Vital Signs 10/25/18 10/25/18 19:07 23:16 Temperature 98.5 F 97.7 F Pulse Rate 98 79 Respiratory 18 16 Rate Blood Pressure 129/67 116/75 O2 Sat by Pulse 96 Oximetry Medical Decision Making - Medical Decision Making The patient was placed into room 10. I did discuss the diagnosis, differential and treatment options. The patient states that he had a CAT scan of his abdomen and pelvis due to his nausea when he was last seen in the emergency department. He is refusing repeat CAT scan at this time. States that this pain is exactly the same over the past few months. I did recommended laboratory studies for which patient did agree. I did obtain peripheral IV access. The patient was given 10 mg of Reglan and 25 mg of Benadryl for his nausea. I also provided the patient with 15 mg of Toradol for his pain. The patient did agree to a x-ray of his right knee. Upon return of results I did discuss with them the patient. I did discuss diagnosis, differential and treatment options. The patient states that he feels ready to go home at this time. He does have improvement in his knee pain and is able to ambulate. The patient also had improvement in his nausea. I did offer to write the patient a prescription for Reglan as the Zofran doesn't work. The patient did agree to this. I did discuss the side effect profile of the medication. I instructed him if he has any ill side effects to take Benadryl with it. He may also discontinue the Reglan if he does not tolerate it. He must follow up with his plate grainer regarding the nausea after dialysis. He is also to follow-up with his orthopedic surgeon for his chronic right knee pain. If he has any new or worsening symptoms, he should return to the emergency room. The patient was discharged home in stable condition. - Lab Data Result diagrams: 10/25/18 20:59 10/25/18 20:59 Lab Results 10/25/18 10/25/18 10/25/18 Range/Units 20:59 20:59 20:59 WBC 6.6 (3.8-10.6) k/uL RBC 5.30 (4.30-5.90) m/uL Hgb 11.5 L (13.0-17.5) gm/dL Hct 37.3 L (39.0-53.0) % MCV 70.3 L (80.0-100.0) fL MCH 21.7 L (25.0-35.0) pg MCHC 30.8 L (31.0-37.0) g/dL RDW 20.9 H (11.5-15.5) % Plt Count 136 L (150-450) k/uL Neutrophils % 60 % Lymphocytes % 21 % Monocytes % 8 % Eosinophils % 6 % Basophils % 1 % Neutrophils # 3.9 (1.3-7.7) k/uL Lymphocytes # 1.4 (1.0-4.8) k/uL Monocytes # 0.5 (0-1.0) k/uL Eosinophils # 0.4 (0-0.7) k/uL Basophils # 0.1 (0-0.2) k/uL Hypochromasia Marked Poikilocytosis Moderate Anisocytosis Moderate Microcytosis Marked PT (9.0-12.0) sec INR (<1.2) Sodium 138 (137-145) mmol/L Potassium 4.6 (3.5-5.1) mmol/L Chloride 95 L (98-107) mmol/L Carbon Dioxide 30 (22-30) mmol/L Anion Gap 13 mmol/L BUN 27 H (9-20) mg/dL Creatinine 6.14 H (0.66-1.25) mg/dL Est GFR (CKD-EPI)AfAm 10 (>60 ml/min/1.73 sqM) Est GFR (CKD-EPI)NonAf 9 (>60 ml/min/1.73 sqM) Glucose 122 H (74-99) mg/dL Plasma Lactic Acid Yonny 1.5 (0.7-2.0) mmol/L Calcium 9.7 (8.4-10.2) mg/dL Total Bilirubin 0.8 (0.2-1.3) mg/dL AST 28 (17-59) U/L ALT 32 (21-72) U/L Alkaline Phosphatase 152 H (38-126) U/L Total Protein 6.4 (6.3-8.2) g/dL Albumin 4.1 (3.5-5.0) g/dL Lipase 31 (23-300) U/L 10/25/18 Range/Units 20:59 WBC (3.8-10.6) k/uL RBC (4.30-5.90) m/uL Hgb (13.0-17.5) gm/dL Hct (39.0-53.0) % MCV (80.0-100.0) fL MCH (25.0-35.0) pg MCHC (31.0-37.0) g/dL RDW (11.5-15.5) % Plt Count (150-450) k/uL Neutrophils % % Lymphocytes % % Monocytes % % Eosinophils % % Basophils % % Neutrophils # (1.3-7.7) k/uL Lymphocytes # (1.0-4.8) k/uL Monocytes # (0-1.0) k/uL Eosinophils # (0-0.7) k/uL Basophils # (0-0.2) k/uL Hypochromasia Poikilocytosis Anisocytosis Microcytosis PT 11.3 (9.0-12.0) sec INR 1.1 (<1.2) Sodium (137-145) mmol/L Potassium (3.5-5.1) mmol/L Chloride (98-107) mmol/L Carbon Dioxide (22-30) mmol/L Anion Gap mmol/L BUN (9-20) mg/dL Creatinine (0.66-1.25) mg/dL Est GFR (CKD-EPI)AfAm (>60 ml/min/1.73 sqM) Est GFR (CKD-EPI)NonAf (>60 ml/min/1.73 sqM) Glucose (74-99) mg/dL Plasma Lactic Acid Yonny (0.7-2.0) mmol/L Calcium (8.4-10.2) mg/dL Total Bilirubin (0.2-1.3) mg/dL AST (17-59) U/L ALT (21-72) U/L Alkaline Phosphatase (38-126) U/L Total Protein (6.3-8.2) g/dL Albumin (3.5-5.0) g/dL Lipase (23-300) U/L - EKG Data -: EKG Interpreted by Me EKG Comments: EKG demonstrates a normal sinus rhythm with a ventricular rate of 75. [place] interval 156. QRS of 118. QTC of 473. There are no acute ST segment elevations or depressions concerning for ischemic changes. Disposition Clinical Impression: Nausea, Dialysis complication, Abdominal pain, Knee pain, acute, Arthritis Disposition: HOME SELF-CARE Condition: Good Instructions (If sedation given, give patient instructions): Osteoarthritis (ED), Acute Nausea and Vomiting (ED) Additional Instructions: Please follow-up with your plate grainer regarding the nausea you experience af ter dialysis. Please follow-up with your orthopedic doctor regarding the arthritis in your right knee. Return to the emergency room should you have any new or worsening symptoms. Take the Reglan as directed. You may take Benadryl with the medication for any side effects that you have. Discontinue the medication if the side effects are severe Prescriptions: Metoclopramide [Reglan] 10 mg PO TID PRN #15 tab PRN Reason: GERD Is patient prescribed a controlled substance at d/c from ED?: No Referrals: Jazmin Castaneda MD [Primary Care Provider] - 1-2 days Time of Disposition: 23:02
[2018-10-25 23:19] VITALS: BP 116/75; PULSE 79; RESP 16; TEMP 97.7
== END 2018-10-25 23:16 | disposition home or self-care (01) ==
LOC: EC 18:50
DX: R11.0 Nausea (principal); R10.9 Unspecified abdominal pain; M13.861 Other specified arthritis, right knee; T82.49XA Other complication of vascular dialysis catheter, initial encounter; E11.22 Type 2 diabetes mellitus with diabetic chronic kidney disease; I13.2 Hypertensive heart and chronic kidney disease with heart failure and with stage 5 chronic kidney disease, or end stage renal disease; I50.9 Heart failure, unspecified; N18.6 End stage renal disease; E78.5 Hyperlipidemia, unspecified; E11.40 Type 2 diabetes mellitus with diabetic neuropathy, unspecified; E11.319 Type 2 diabetes mellitus with unspecified diabetic retinopathy without macular edema; Z79.82 Long term (current) use of aspirin; Z79.4 Long term (current) use of insulin; Z79.890 Hormone replacement therapy; Z79.899 Other long term (current) drug therapy; Z87.891 Personal history of nicotine dependence; Z95.5 Presence of coronary angioplasty implant and graft; Z99.2 Dependence on renal dialysis
CPT/HCPCS: 36415; 93005; 80053; 83605; 83690; 85025; 85610; 73562; 99284; 96374; 96375 ×2; J1200; J2765; J1885

== ENCOUNTER 2018-10-28 17:40 | Emergency (ER) | payer MEDICARE, BC ==
[2018-10-28 17:48] VITALS: RESP 18
[2018-10-28] MEDS ORDERED: SODIUM CHLORIDE 0.9% 500 ML 500 ML IV STA (17:50)
[2018-10-28] MEDS ORDERED: LORazepam 2 MG/ML INJ IV STA (17:59)
[2018-10-28] MEDS ORDERED: ONDANSETRON 4 MG/2 ML VIAL IVP STA (17:59)
--- NOTE | 2018-10-28 18:01 | ED ---
Nausea/Vomiting/Diarrhea HPI - General Chief complaint: Nausea/Vomiting/Diarrhea Stated complaint: nausea Time Seen by Provider: 10/28/18 17:49 Source: patient Mode of arrival: wheelchair Limitations: no limitations - History of Present Illness Initial comments: 63-year-old male end-stage renal disease on dialysis presents today for nausea. Patient states every time he goes to dialysis he has nausea. He states he is identical symptoms to his previous nausea abdominal pain after dialysis as previous visits. He denies A changes. He states he does not want imaging studies he knows that the pain is from dialysis. He states that 5:30 AM he went to dialysis when he returned home he was nauseous. He attempted to take an oral Reglan. He states only the IV medication seemed to work. Patient follows his clinic lpn Dr. Dougherty. Remaining review of systems negative, atient denies anyfever, chills, shortness of breath, chest pain, back pain, abdominal pain, nausea or vomiting, numbness or tingling, dysuria or hematuria, constipation or diarrhea, headaches or visual changes, or any other complaints. Patient states he had normal bowel movement this morning. - Related Data Home Medications Medication Instructions Recorded Confirmed Aspirin [Adult Low Dose Aspirin EC] 81 mg PO DAILY 10/23/16 10/25/18 Atorvastatin [Lipitor] 10 mg PO HS 10/23/16 10/25/18 Ergocalciferol (Vitamin D2) 50,000 unit PO Q14D 10/23/16 10/25/18 [Vitamin D2] Sodium Polystyrene Sulfonate [SPS] 30 gm PO SUSA 10/23/16 10/25/18 hydrALAZINE HCL 50 mg PO DAILY 10/23/16 10/25/18 Gabapentin [Neurontin] 300 mg PO BID 08/29/17 10/25/18 Insulin Aspart [NovoLOG Flexpen] See Protocol SQ ACHS 08/29/17 10/25/18 Pyridoxine [Vitamin B-6] 100 mg PO DAILY 08/29/17 10/25/18 diphenhydrAMINE [Benadryl] 25 mg PO DAILY 08/29/17 10/25/18 Folic Acid 0.8 mg PO DAILY 12/07/17 10/25/18 Cinacalcet HCl [Sensipar] 60 mg PO DAILY 05/08/18 10/25/18 Metoprolol Succinate (ER) [Toprol 50 mg PO DAILY 05/08/18 10/25/18 XL] Calcium Acetate [PhosLo] 2,668 mg PO TID-W/MEALS 09/12/18 10/25/18 Cyanocobalamin [Vitamin B-12] 500 mcg PO DAILY 09/12/18 10/25/18 Furosemide [Lasix] 80 mg PO BID 09/12/18 10/25/18 HYDROcodone/APAP 5-325MG [[place] 1 tab PO DAILY 09/12/18 10/25/18 5-325] Insulin NPH Human Isophane See Protocol SQ HS 10/25/18 10/25/18 [NovoLIN N] Levothyroxine Sodium [Synthroid] 300 mcg PO DAILY 10/25/18 10/25/18 Ondansetron HCl [Zofran] 8 mg PO Q8H PRN 10/25/18 10/25/18 Previous Rx's Medication Instructions Recorded Metoclopramide [Reglan] 10 mg PO TID PRN #15 tab 10/25/18 Allergies Allergy/AdvReac Type Severity Reaction Status Date / Time No Known Allergies Allergy Verified 10/28/18 17:48 Review of Systems ROS Statement: Those systems with pertinent positive or pertinent negative responses have been documented in the HPI. ROS Other: All systems not noted in ROS Statement are negative. 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 Past Anesthesia/Blood Transfusion Reactions: No Reported Reaction Additional Past Anesthesia/Blood Transfusion Reaction / Comment(s): Pt states he has woken during surgeries in the past. Date of Last Stent Placement:: 2008 Past Psychological History: No Psychological Hx Reported Smoking Status: Former smoker Past Alcohol Use History: None Reported Past Drug Use History: None Reported - Past Family History Mother Family Medical History: Congestive Heart Failure (CHF) Additional Family Medical History / Comment(s): Mother lived to be 89 yrs old. Father Family Medical History: Congestive Heart Failure (CHF) Additional Family Medical History / Comment(s): Father lived to be 93 yrs old. Brother(s) Family Medical History: Congestive Heart Failure (CHF) Additional Family Medical History / Comment(s): Brother at the age of 67yrs. General Exam - General Exam Comments Initial Comments: General: The patient is awake and alert, in no distress, and does not appear acutely ill. Eye: Pupils are equal, round and reactive to light, extra-ocular movements are intact. No nystagmus. There is normal conjunctiva bilaterally. No signs of icterus. Ears, nose, mouth and throat: There are moist mucous membranes and no oral lesions. Neck: The neck is supple, there is no tenderness or JVD. Cardiovascular: There is a regular rate and rhythm. No murmur, rub or gallop is appreciated. Respiratory: Lungs are clear to auscultation, respirations are non-labored, breath sounds are equal. No wheezes, stridor, rales, or rhonchi. Gastrointestinal: Soft, non-distended, non-tender abdomen without masses or organomegaly noted. There is no rebound or guarding present. Bowel sounds are unremarkable. Musculoskeletal: Normal ROM, no tenderness. Strength 5/5. Sensation intact. Pulses equal bilaterally 2+. Neurological: A&O x 3. CN II-XII intact, There are no obvious motor or sensory deficits. Coordination appears grossly intact. Speech is normal. Skin: Skin is warm and dry and no rashes or lesions are noted. Psychiatric: Cooperative, appropriate mood & affect, normal judgment. Limitations: no limitations Course Vital Signs 10/28/18 10/28/18 17:47 19:18 Temperature 97.7 F 98.0 F Pulse Rate 83 79 Respiratory 18 18 Rate Blood Pressure 119/76 147/79 O2 Sat by Pulse 98 98 Oximetry Medical Decision Making - Medical Decision Making 63-year-old male familiar to this emergency department with identical complaints. Patient states he has nausea every time he receives dialysis. Patient denies any changes and nausea today. Patient provided Zofran IV fluids and Ativan. Patient states helped alleviate symptoms. Patient states he is ready for discharge. On reevaluation. Patient was provided Reglan prior to discharge for continued nausea management upon going home. She has home prescription for Reglan and was instructed not take medications this evening. Patient is agreeable to plan of care as well as discharge she refused any imaging studies. Patient's laboratory studies revealed findings consistent with patient known baseline, as well as diagnosis of ESRD. After discussing the case at time provider Dr. Lerma patient was discharge appearing well and please with plan of care. - Lab Data Result diagrams: 10/28/18 17:58 10/28/18 17:58 Lab Results 10/28/18 10/28/18 10/28/18 Range/Units 17:58 17:58 18:20 WBC 5.2 (3.8-10.6) k/uL RBC 5.16 (4.30-5.90) m/uL Hgb 11.1 L (13.0-17.5) gm/dL Hct 35.7 L (39.0-53.0) % MCV 69.1 L (80.0-100.0) fL MCH 21.4 L (25.0-35.0) pg MCHC 31.0 (31.0-37.0) g/dL RDW 20.1 H (11.5-15.5) % Plt Count 120 L (150-450) k/uL Neutrophils % 64 % Lymphocytes % 20 % Monocytes % 6 % Eosinophils % 6 % Basophils % 1 % Neutrophils # 3.4 (1.3-7.7) k/uL Lymphocytes # 1.1 (1.0-4.8) k/uL Monocytes # 0.3 (0-1.0) k/uL Eosinophils # 0.3 (0-0.7) k/uL Basophils # 0.0 (0-0.2) k/uL Hypochromasia Moderate Poikilocytosis Slight Anisocytosis Moderate Microcytosis Marked Sodium 135 L (137-145) mmol/L Potassium 5.4 H (3.5-5.1) mmol/L Chloride 94 L (98-107) mmol/L Carbon Dioxide 30 (22-30) mmol/L Anion Gap 11 mmol/L BUN 32 H (9-20) mg/dL Creatinine 6.70 H (0.66-1.25) mg/dL Est GFR (CKD-EPI)AfAm 9 (>60 ml/min/1.73 sqM) Est GFR (CKD-EPI)NonAf 8 (>60 ml/min/1.73 sqM) Glucose 395 H (74-99) mg/dL Calcium 9.3 (8.4-10.2) mg/dL Total Bilirubin 0.9 (0.2-1.3) mg/dL AST 31 (17-59) U/L ALT 41 (21-72) U/L Alkaline Phosphatase 145 H (38-126) U/L Total Protein 6.4 (6.3-8.2) g/dL Albumin 4.2 (3.5-5.0) g/dL Acetone, Qual Negative (Negative) Disposition Clinical Impression: Nausea Disposition: HOME SELF-CARE Condition: Good Instructions (If sedation given, give patient instructions): Acute Nausea and Vomiting (ED) Additional Instructions: Please use medication as discussed. Please follow-up with family doctor in the next 2 days as well as clinic lpn. Please return to emergency room if the symptoms increase or worsen or for any other concerns. Is patient prescribed a controlled substance at d/c from ED?: No Referrals: Jazmin Castaneda MD [Primary Care Provider] - 1-2 days Time of Disposition: 18:56
[2018-10-28 18:12] LABS: Anisocytosis Moderate; Basophils % (A) 1 %; Eosinophils # (A) 0.3 k/uL (0-0.7); Eosinophils % (A) 6 %; HCT 35.7 % (39.0-53.0); HGB 11.1 gm/dL (13.0-17.5); Hypochromasia Moderate; Lymphocytes # (A) 1.1 k/uL (1.0-4.8); Lymphocytes % (A) 20 %; MCH 21.4 pg (25.0-35.0); MCV 69.1 fL (80.0-100.0); Mean Platelet Volume 6.8; Microcytosis Marked; Monocytes # (A) 0.3 k/uL (0-1.0); Monocytes % (A) 6 %; Neutrophils # (A) 3.4 k/uL (1.3-7.7); Neutrophils % (A) 64 %; Platelet Count 120 k/uL (150-450); Poikilocytosis Slight; RBC 5.16 m/uL (4.30-5.90); RDW 20.1 % (11.5-15.5); WBC 5.2 k/uL (3.8-10.6)
[2018-10-28 18:20] LABS: Albumin 4.2 g/dL (3.5-5.0); Calcium 9.3 mg/dL (8.4-10.2); Potassium 5.4 mmol/L (3.5-5.1); Total Bilirubin 0.9 mg/dL (0.2-1.3); Total Protein 6.4 g/dL (6.3-8.2)
[2018-10-28] MEDS ORDERED: METOCLOPRAMIDE 5 MG/ML 2 ML VIAL IVP STA (18:55)
[2018-10-28 19:20] VITALS: BP 147/79; PULSE 79; TEMP 98
== END 2018-10-28 19:18 | disposition home or self-care (01) ==
LOC: EC 17:40
DX: R11.0 Nausea (principal); E11.22 Type 2 diabetes mellitus with diabetic chronic kidney disease; I13.2 Hypertensive heart and chronic kidney disease with heart failure and with stage 5 chronic kidney disease, or end stage renal disease; I50.9 Heart failure, unspecified; N18.6 End stage renal disease; Z99.2 Dependence on renal dialysis; E11.40 Type 2 diabetes mellitus with diabetic neuropathy, unspecified; E11.319 Type 2 diabetes mellitus with unspecified diabetic retinopathy without macular edema; D64.9 Anemia, unspecified; E78.5 Hyperlipidemia, unspecified; Z79.4 Long term (current) use of insulin; Z79.890 Hormone replacement therapy; Z79.899 Other long term (current) drug therapy; Z79.82 Long term (current) use of aspirin; Z87.891 Personal history of nicotine dependence; Z95.5 Presence of coronary angioplasty implant and graft; Z96.641 Presence of right artificial hip joint; Z96.651 Presence of right artificial knee joint
CPT/HCPCS: 36415; 80053; 82009; 85025; 99283; 96374; 96375 ×2; 96361; J2060; J2765; J2405

== ENCOUNTER 2018-10-30 14:19 | Emergency (ER) | payer MEDICARE, BC ==
[2018-10-30 14:30] VITALS: RESP 18; TEMP 98.8
[2018-10-30] MEDS ORDERED: diphenhydrAMINE 50 MG/ML 1 ML VIAL IVP STA (15:31)
[2018-10-30] MEDS ORDERED: ONDANSETRON 4 MG/2 ML VIAL IVP STA (15:31)
--- NOTE | 2018-10-30 15:34 | ED ---
Nausea/Vomiting/Diarrhea HPI - General Chief complaint: Nausea/Vomiting/Diarrhea Stated complaint: nausea Time Seen by Provider: 10/30/18 15:09 Source: patient, RN notes reviewed, old records reviewed Mode of arrival: ambulatory Limitations: no limitations - History of Present Illness Initial comments: This is a 63-year-old male with a history of renal failure who is on dialysis for the last 8 years who states that for quite some time now he's been getting nauseated with some abdominal pain about 4 hours after dialysis. He states that thus far his investor relations manager or his family doctor can figure it out. He denies any fevers chills sweats diarrhea constipation or other symptoms at this time. He states his abdomen feels sore in the upper mid epigastric area. He states he's also diabetic he denies any diagnosis of gastroparesis however. His other complaints he was seen here yesterday and over last several days for similar problems. He has not as of yet seen a bunk assembler. MD complaint: nausea - Related Data Home Medications Medication Instructions Recorded Confirmed Aspirin [Adult Low Dose Aspirin EC] 81 mg PO DAILY 10/23/16 10/30/18 Atorvastatin [Lipitor] 10 mg PO HS 10/23/16 10/30/18 Ergocalciferol (Vitamin D2) 50,000 unit PO Q14D 10/23/16 10/30/18 [Vitamin D2] Sodium Polystyrene Sulfonate [SPS] 30 gm PO SUSA 10/23/16 10/30/18 hydrALAZINE HCL 50 mg PO DAILY 10/23/16 10/30/18 Gabapentin [Neurontin] 300 mg PO BID 08/29/17 10/30/18 Pyridoxine [Vitamin B-6] 100 mg PO DAILY 08/29/17 10/30/18 diphenhydrAMINE [Benadryl] 25 mg PO DAILY 08/29/17 10/30/18 Folic Acid 0.8 mg PO DAILY 12/07/17 10/30/18 Cinacalcet HCl [Sensipar] 60 mg PO DAILY 05/08/18 10/30/18 Metoprolol Succinate (ER) [Toprol 50 mg PO DAILY 05/08/18 10/30/18 XL] Calcium Acetate [PhosLo] 2,668 mg PO TID-W/MEALS 09/12/18 10/30/18 Cyanocobalamin [Vitamin B-12] 500 mcg PO DAILY 09/12/18 10/30/18 Furosemide [Lasix] 80 mg PO BID 09/12/18 10/30/18 HYDROcodone/APAP 5-325MG [[place] 1 tab PO DAILY 09/12/18 10/30/18 5-325] Levothyroxine Sodium [Synthroid] 300 mcg PO DAILY 10/25/18 10/30/18 Ondansetron HCl [Zofran] 8 mg PO Q8H PRN 10/25/18 10/30/18 INSULIN ASPART (NovoLOG) [Novo[place] 13 unit SQ AC-SUPPER 10/30/18 10/30/18 (formulary)] INSULIN ASPART (NovoLOG) [NovoLOG 15 units SQ AC-BRKFST 10/30/18 10/30/18 (formulary)] INSULIN ASPART (NovoLOG) [NovoLOG 18 unit SQ AC-LUNCH 10/30/18 10/30/18 (formulary)] Insulin NPH Human Isophane 16 unit SQ HS 10/30/18 10/30/18 [NovoLIN N] Allergies Allergy/AdvReac Type Severity Reaction Status Date / Time No Known Allergies Allergy Verified 10/30/18 14:44 Review of Systems ROS Statement: Those systems with pertinent positive or pertinent negative responses have been documented in the HPI. ROS Other: All systems not noted in ROS Statement are negative. 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 Past Anesthesia/Blood Transfusion Reactions: No Reported Reaction Additional Past Anesthesia/Blood Transfusion Reaction / Comment(s): Pt states he has woken during surgeries in the past. Date of Last Stent Placement:: 2008 Past Psychological History: No Psychological Hx Reported Smoking Status: Former smoker Past Alcohol Use History: None Reported Past Drug Use History: None Reported - Past Family History Mother Family Medical History: Congestive Heart Failure (CHF) Additional Family Medical History / Comment(s): Mother lived to be 89 yrs old. Father Family Medical History: Congestive Heart Failure (CHF) Additional Family Medical History / Comment(s): Father lived to be 93 yrs old. Brother(s) Family Medical History: Congestive Heart Failure (CHF) Additional Family Medical History / Comment(s): Brother at the age of 67yrs. General Exam - General Exam Comments Initial Comments: Is a well-developed well-nourished awake alert oriented times female Limitations: no limitations General appearance: alert Head exam: Present: atraumatic, normocephalic, normal inspection Eye exam: Present: normal appearance, PERRL, EOMI. Absent: scleral icterus, conjunctival injection, periorbital swelling ENT exam: Present: normal exam, mucous membranes moist Neck exam: Present: normal inspection. Absent: tenderness, meningismus, lymphadenopathy Respiratory exam: Present: normal lung sounds bilaterally. Absent: respiratory distress, wheezes, rales, rhonchi, stridor Cardiovascular Exam: Present: regular rate, normal rhythm, normal heart sounds. Absent: systolic murmur, diastolic murmur, rubs, gallop, clicks GI/Abdominal exam: Present: soft, normal bowel sounds. Absent: distended, tenderness, guarding, rebound, rigid, bruit, pulsatile mass Extremities exam: Present: normal inspection, full ROM, normal capillary refill. Absent: tenderness, pedal edema, joint swelling, calf tenderness Back exam: Present: normal inspection Neurological exam: Present: alert, oriented X3, CN II-XII intact Psychiatric exam: Present: normal affect, normal mood Skin exam: Present: warm, dry, intact, normal color. Absent: rash Course Vital Signs 10/30/18 14:27 Temperature 98.8 F Pulse Rate 80 Respiratory 18 Rate Blood Pressure 123/74 O2 Sat by Pulse 94 L Oximetry Medical Decision Making - Medical Decision Making Patient is feeling much improved at this time and let her go home he'll be discharged I do recommend follow-up with GI. I do suspect gastroparesis - Lab Data Result diagrams: 10/30/18 15:47 10/30/18 15:47 Lab Results 10/30/18 10/30/18 Range/Units 15:47 15:47 WBC 5.9 (3.8-10.6) k/uL RBC 5.30 (4.30-5.90) m/uL Hgb 11.1 L (13.0-17.5) gm/dL Hct 37.6 L (39.0-53.0) % MCV 70.9 L (80.0-100.0) fL MCH 20.9 L (25.0-35.0) pg MCHC 29.4 L (31.0-37.0) g/dL RDW 20.5 H (11.5-15.5) % Plt Count 123 L (150-450) k/uL Neutrophils % 63 % Lymphocytes % 20 % Monocytes % 7 % Eosinophils % 5 % Basophils % 1 % Neutrophils # 3.7 (1.3-7.7) k/uL Lymphocytes # 1.2 (1.0-4.8) k/uL Monocytes # 0.4 (0-1.0) k/uL Eosinophils # 0.3 (0-0.7) k/uL Basophils # 0.0 (0-0.2) k/uL Hypochromasia Marked Poikilocytosis Moderate Anisocytosis Moderate Microcytosis Marked Sodium 138 (137-145) mmol/L Potassium 5.0 (3.5-5.1) mmol/L Chloride 98 (98-107) mmol/L Carbon Dioxide 30 (22-30) mmol/L Anion Gap 10 mmol/L BUN 22 H (9-20) mg/dL Creatinine 5.27 H (0.66-1.25) mg/dL Est GFR (CKD-EPI)AfAm 12 (>60 ml/min/1.73 sqM) Est GFR (CKD-EPI)NonAf 11 (>60 ml/min/1.73 sqM) Glucose 161 H (74-99) mg/dL Calcium 9.3 (8.4-10.2) mg/dL Magnesium 1.8 (1.6-2.3) mg/dL Total Bilirubin 1.1 (0.2-1.3) mg/dL AST 45 (17-59) U/L ALT 36 (21-72) U/L Alkaline Phosphatase 150 H (38-126) U/L Total Protein 6.7 (6.3-8.2) g/dL Albumin 4.4 (3.5-5.0) g/dL Amylase 43 (30-110) U/L Lipase 36 (23-300) U/L Disposition Clinical Impression: Gastritis, Nausea, Chronic renal failure syndrome Disposition: HOME SELF-CARE Condition: Good Instructions (If sedation given, give patient instructions): Acute Nausea and Vomiting (ED) Is patient prescribed a controlled substance at d/c from ED?: No Referrals: Jazmin Castaneda MD [Primary Care Provider] - 1-2 days Azalia Natarajan MD [STAFF PHYSICIAN] - 1-2 days
[2018-10-30 15:59] LABS: Anisocytosis Moderate; Basophils % (A) 1 %; Eosinophils # (A) 0.3 k/uL (0-0.7); Eosinophils % (A) 5 %; HCT 37.6 % (39.0-53.0); HGB 11.1 gm/dL (13.0-17.5); Hypochromasia Marked; Lymphocytes # (A) 1.2 k/uL (1.0-4.8); Lymphocytes % (A) 20 %; MCH 20.9 pg (25.0-35.0); MCHC 29.4 g/dL (31.0-37.0); MCV 70.9 fL (80.0-100.0); Mean Platelet Volume 6.9; Microcytosis Marked; Monocytes # (A) 0.4 k/uL (0-1.0); Monocytes % (A) 7 %; Neutrophils # (A) 3.7 k/uL (1.3-7.7); Neutrophils % (A) 63 %; Platelet Count 123 k/uL (150-450); Poikilocytosis Moderate; RDW 20.5 % (11.5-15.5); WBC 5.9 k/uL (3.8-10.6)
--- NOTE | 2018-10-30 16:09 | XR ---
EXAMINATION TYPE: XR KUB DATE OF EXAM: 10/30/2018 4:04 PM CLINICAL HISTORY: Nausea and abdominal pain after dialysis today. TECHNIQUE: Two Upright KUB images of the abdomen are obtained. COMPARISON: CT abdomen pelvis September 13, 2018. FINDINGS: Gas is seen in poorly distended stomach. Scattered gas is seen in non-distended small bowel loops. Gas and fecal material is seen in non-distended colon. Splenomegaly is redemonstrated. No pne umoperitoneum. No suspicious calcifications. Metallic hardware from right hip surgery is partially im aged. Pelvic vascular calcification is again seen. IMPRESSION: Overall nonobstructive bowel gas pattern. Splenomegaly redemonstrated.
[2018-10-30 16:15] LABS: Albumin 4.4 g/dL (3.5-5.0); Calcium 9.3 mg/dL (8.4-10.2); Magnesium 1.8 mg/dL (1.6-2.3); Total Bilirubin 1.1 mg/dL (0.2-1.3); Total Protein 6.7 g/dL (6.3-8.2)
[2018-10-30] MEDS ORDERED: METOCLOPRAMIDE 5 MG/ML 2 ML VIAL IVP STA (16:41)
[2018-10-30 17:44] VITALS: BP 163/92; PULSE 78
== END 2018-10-30 17:44 | disposition home or self-care (01) ==
LOC: EC 14:19
DX: K29.70 Gastritis, unspecified, without bleeding (principal); I13.2 Hypertensive heart and chronic kidney disease with heart failure and with stage 5 chronic kidney disease, or end stage renal disease; N18.6 End stage renal disease; I50.9 Heart failure, unspecified; E11.22 Type 2 diabetes mellitus with diabetic chronic kidney disease; E11.40 Type 2 diabetes mellitus with diabetic neuropathy, unspecified; E11.319 Type 2 diabetes mellitus with unspecified diabetic retinopathy without macular edema; E78.5 Hyperlipidemia, unspecified; D63.1 Anemia in chronic kidney disease; E11.621 Type 2 diabetes mellitus with foot ulcer; L97.519 Non-pressure chronic ulcer of other part of right foot with unspecified severity; Z99.2 Dependence on renal dialysis; Z87.891 Personal history of nicotine dependence; Z95.5 Presence of coronary angioplasty implant and graft; Z96.641 Presence of right artificial hip joint; Z98.890 Other specified postprocedural states; Z79.4 Long term (current) use of insulin; Z79.82 Long term (current) use of aspirin; Z79.890 Hormone replacement therapy; Z79.899 Other long term (current) drug therapy
CPT/HCPCS: 36415; 80053; 82150; 83690; 83735; 85025; 74018; 99284; 96374; 96375 ×2; J1200; J2765; J2405

== ENCOUNTER 2018-10-30 19:48 | Observation (INO) | payer MEDICARE, BC ==
[2018-10-30] MEDS ORDERED: METOCLOPRAMIDE 5 MG/ML 2 ML VIAL IVP STA (21:06)
[2018-10-30] MEDS ORDERED: HYDROmorphone 1 MG/ML 1 ML SYRINGE IVP STA (21:06)
[2018-10-30 21:30] LABS: Anisocytosis Moderate; Basophils % (A) 1 %; Eosinophils # (A) 0.2 k/uL (0-0.7); Eosinophils % (A) 4 %; HCT 35.3 % (39.0-53.0); HGB 10.9 gm/dL (13.0-17.5); Hypochromasia Marked; Lymphocytes % (A) 17 %; MCH 21.9 pg (25.0-35.0); MCHC 30.7 g/dL (31.0-37.0); MCV 71.4 fL (80.0-100.0); Microcytosis Marked; Monocytes # (A) 0.4 k/uL (0-1.0); Monocytes % (A) 6 %; Neutrophils # (A) 3.7 k/uL (1.3-7.7); Neutrophils % (A) 68 %; Platelet Count 124 k/uL (150-450); Poikilocytosis Moderate; RBC 4.95 m/uL (4.30-5.90); RDW 20.8 % (11.5-15.5); WBC 5.4 k/uL (3.8-10.6)
[2018-10-30 21:35] LABS: Albumin 4.2 g/dL (3.5-5.0); Calcium 9.2 mg/dL (8.4-10.2); Potassium 5.1 mmol/L (3.5-5.1); Total Protein 6.4 g/dL (6.3-8.2)
--- NOTE | 2018-10-30 21:54 | CT ---
EXAMINATION TYPE: CT abdomen pelvis wo con DATE OF EXAM: 10/30/2018 COMPARISON: CT 09/13/2018 HISTORY: Pain in lower abdomen CT DLP: 1168.4 mGycm Automated exposure control for dose reduction was used. TECHNIQUE: Helical acquisition of images was performed from the lung bases through the pelvis. FINDINGS: Within the limitations of noncontrast CT, the following observations are made: LUNG BASES: No acute process. Moderate cardiomegaly with prominent coronary calcifications. LIVER/GB: No significant abnormality is appreciated. Cholelithiasis occupies approximately 5% of the gallbladder lumen. PANCREAS: No significant abnormality is seen. SPLEEN: No significant abnormality is seen. There is mild splenomegaly, with greatest dimension 17 cm ; this is a stable finding. ADRENALS: No significant abnormality is seen. KIDNEYS: No acute findings. Bilateral renal cysts noted, particularly in the left with the largest me asures over 8 cm FREE AIR: No free air is visualized RETROPERITONEAL ADENOPATHY: None visualized REPRODUCTIVE ORGANS: No significant abnormality is seen URINARY BLADDER: No significant abnormality is seen. PELVIC ADENOPATHY: None visualized. OSSEOUS STRUCTURES: No significant abnormality is seen. BOWEL: No significant abnormality is seen. IMPRESSION: NO ACUTE PROCESS
[2018-10-30] MEDS ORDERED: NALOXONE 0.4 MG/ML 1 ML VIAL IV PRN (22:27)
[2018-10-30] MEDS ORDERED: ONDANSETRON 4 MG/2 ML VIAL IVP PRN (22:27)
--- NOTE | 2018-10-30 22:28 | ED ---
Nausea/Vomiting/Diarrhea HPI - General Chief complaint: Nausea/Vomiting/Diarrhea Stated complaint: Revisit, Nausea Time Seen by Provider: 10/30/18 20:04 Source: patient, RN notes reviewed, old records reviewed Mode of arrival: wheelchair Limitations: no limitations - History of Present Illness Initial comments: This is a 63-year-old male history of chronic renal failure who had dialysis today who initially presented earlier due to nausea started about 4 hours after dialysis. He states she's been having is quite frequently over last several weeks to months he states his emt p or his family doctor can explain it. He was seen earlier by me he went home after he felt improved and wanted go home on his way home he started developing more nausea and epigastric pain. No fevers chills nausea times sweats or other symptoms. MD complaint: nausea, abdominal pain - Related Data Home Medications Medication Instructions Recorded Confirmed Aspirin [Adult Low Dose Aspirin EC] 81 mg PO DAILY 10/23/16 10/30/18 Atorvastatin [Lipitor] 10 mg PO HS 10/23/16 10/30/18 Ergocalciferol (Vitamin D2) 50,000 unit PO Q14D 10/23/16 10/30/18 [Vitamin D2] Sodium Polystyrene Sulfonate [SPS] 30 gm PO SUSA 10/23/16 10/30/18 hydrALAZINE HCL 50 mg PO DAILY 10/23/16 10/30/18 Gabapentin [Neurontin] 300 mg PO BID 08/29/17 10/30/18 Pyridoxine [Vitamin B-6] 100 mg PO DAILY 08/29/17 10/30/18 diphenhydrAMINE [Benadryl] 25 mg PO DAILY 08/29/17 10/30/18 Folic Acid 0.8 mg PO DAILY 12/07/17 10/30/18 Cinacalcet HCl [Sensipar] 60 mg PO DAILY 05/08/18 10/30/18 Metoprolol Succinate (ER) [Toprol 50 mg PO DAILY 05/08/18 10/30/18 XL] Calcium Acetate [PhosLo] 2,668 mg PO TID-W/MEALS 09/12/18 10/30/18 Cyanocobalamin [Vitamin B-12] 500 mcg PO DAILY 09/12/18 10/30/18 Furosemide [Lasix] 80 mg PO BID 09/12/18 10/30/18 HYDROcodone/APAP 5-325MG [[place] 1 tab PO DAILY 09/12/18 10/30/18 5-325] Levothyroxine Sodium [Synthroid] 300 mcg PO DAILY 10/25/18 10/30/18 Ondansetron HCl [Zofran] 8 mg PO Q8H PRN 10/25/18 10/30/18 INSULIN ASPART (NovoLOG) [NovoLOG 13 unit SQ AC-SUPPER 10/30/18 10/30/18 (formulary)] INSULIN ASPART (NovoLOG) [NovoLOG 15 units SQ AC-BRKFST 10/30/18 10/30/18 (formulary)] INSULIN ASPART (NovoLOG) [NovoLOG 18 unit SQ AC-LUNCH 10/30/18 10/30/18 (formulary)] Insulin NPH Human Isophane 16 unit SQ HS 10/30/18 10/30/18 [NovoLIN N] Allergies Allergy/AdvReac Type Severity Reaction Status Date / Time No Known Allergies Allergy Verified 10/30/18 20:00 Review of Systems ROS Statement: Those systems with pertinent positive or pertinent negative responses have been documented in the HPI. ROS Other: All systems not noted in ROS Statement are negative. 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 Past Anesthesia/Blood Transfusion Reactions: No Reported Reaction Additional Past Anesthesia/Blood Transfusion Reaction / Comment(s): Pt states he has woken during surgeries in the past. Date of Last Stent Placement:: 2008 Past Psychological History: No Psychological Hx Reported Smoking Status: Former smoker Past Alcohol Use History: None Reported Past Drug Use History: None Reported - Past Family History Mother Family Medical History: Congestive Heart Failure (CHF) Additional Family Medical History / Comment(s): Mother lived to be 89 yrs old. Father Family Medical History: Congestive Heart Failure (CHF) Additional Family Medical History / Comment(s): Father lived to be 93 yrs old. Brother(s) Family Medical History: Congestive Heart Failure (CHF) Additional Family Medical History / Comment(s): Brother at the age of 67yrs. General Exam - General Exam Comments Initial Comments: This is a well-developed well-nourished awake alert oriented times 3 male Limitations: no limitations General appearance: alert, anxious, in distress Head exam: Present: atraumatic, normocephalic, normal inspection Eye exam: Present: normal appearance, PERRL, EOMI. Absent: scleral icterus, conjunctival injection, periorbital swelling ENT exam: Present: normal exam, mucous membranes moist Neck exam: Present: normal inspection. Absent: tenderness, meningismus, lymphadenopathy Respiratory exam: Present: normal lung sounds bilaterally. Absent: respiratory distress, wheezes, rales, rhonchi, stridor Cardiovascular Exam: Present: regular rate, normal rhythm, normal heart sounds. Absent: systolic murmur, diastolic murmur, rubs, gallop, clicks GI/Abdominal exam: Present: soft, tenderness (Mild epigastric tenderness palpation no guarding rebound masses or bruits), normal bowel sounds. Absent: distended, guarding, rebound, rigid Extremities exam: Present: normal inspection, full ROM, normal capillary refill. Absent: tenderness, pedal edema, joint swelling, calf tenderness Back exam: Present: normal inspection Neurological exam: Present: alert, oriented X3, CN II-XII intact Psychiatric exam: Present: normal affect, normal mood Skin exam: Present: warm, dry, intact, normal color. Absent: rash Course Vital Signs 10/30/18 19:58 Temperature 98.5 F Pulse Rate 84 Respiratory 18 Rate Blood Pressure 139/74 O2 Sat by Pulse 95 Oximetry Medical Decision Making - Medical Decision Making I did discuss findings with the patient I did discuss case Dr. Bernal. She'll be admitted with consultation by GI. The presentation is suspicious for gastroparesis patient is diabetic. - Lab Data Result diagrams: 10/30/18 21:09 10/30/18 21:09 Lab Results 10/30/18 10/30/18 Range/Units 21:09 21:09 WBC 5.4 (3.8-10.6) k/uL RBC 4.95 (4.30-5.90) m/uL Hgb 10.9 L (13.0-17.5) gm/dL Hct 35.3 L (39.0-53.0) % MCV 71.4 L (80.0-100.0) fL MCH 21.9 L (25.0-35.0) pg MCHC 30.7 L (31.0-37.0) g/dL RDW 20.8 H (11.5-15.5) % Plt Count 124 L (150-450) k/uL Neutrophils % 68 % Lymphocytes % 17 % Monocytes % 6 % Eosinophils % 4 % Basophils % 1 % Neutrophils # 3.7 (1.3-7.7) k/uL Lymphocytes # 1.0 (1.0-4.8) k/uL Monocytes # 0.4 (0-1.0) k/uL Eosinophils # 0.2 (0-0.7) k/uL Basophils # 0.0 (0-0.2) k/uL Hypochromasia Marked Poikilocytosis Moderate Anisocytosis Moderate Microcytosis Marked Sodium 136 L (137-145) mmol/L Potassium 5.1 (3.5-5.1) mmol/L Chloride 97 L (98-107) mmol/L Carbon Dioxide 28 (22-30) mmol/L Anion Gap 11 mmol/L BUN 28 H (9-20) mg/dL Creatinine 5.88 H (0.66-1.25) mg/dL Est GFR (CKD-EPI)AfAm 11 (>60 ml/min/1.73 sqM) Est GFR (CKD-EPI)NonAf 9 (>60 ml/min/1.73 sqM) Glucose 305 H (74-99) mg/dL Calcium 9.2 (8.4-10.2) mg/dL Total Bilirubin 1.0 (0.2-1.3) mg/dL AST 44 (17-59) U/L ALT 34 (21-72) U/L Alkaline Phosphatase 138 H (38-126) U/L Total Protein 6.4 (6.3-8.2) g/dL Albumin 4.2 (3.5-5.0) g/dL - Radiology Data Radiology results: report reviewed (I did review the imaging and report no acute findings.), image reviewed Disposition Clinical Impression: Intractable nausea and vomiting, Chronic renal failure syndrome, Chronic anemia Disposition: ADMITTED IP TO THIS [facility] Condition: Fair Referrals: Jazmin Castaneda MD [Primary Care Provider] - 1-2 days
[2018-10-30] MEDS: SODIUM CHLORIDE 0.9% 1,000 ML IV SCH (23:37)
[2018-10-31 01:12] VITALS: BMI 41.8
[2018-10-31 04:42] LABS: Glucose,Whole Blood 237 mg/dL (75-99)
[2018-10-31] MEDS: HYDROmorphone 0.5 MG/0.5 ML SYRINGE IVP PRN ×6 (05:35→21:54)
[2018-10-31] MEDS: LEVOTHYROXINE 100 MCG TAB PO SCH (05:35)
[2018-10-31 06:41] LABS: Glucose,Whole Blood 262 mg/dL (75-99)
[2018-10-31] MEDS: INSULIN ASPART (NovoLOG) 100 UNIT/ML VIAL SQ SCH ×4 (07:52→21:03)
[2018-10-31] MEDS: CALCIUM ACETATE 667 MG CAP PO SCH ×3 (07:53→17:29)
[2018-10-31] MEDS: CINACALCET 30 MG TAB PO SCH (07:53)
[2018-10-31] MEDS: ASPIRIN 81 MG PO SCH (07:53)
[2018-10-31] MEDS: hydrALAZINE HCL 50 MG TAB PO SCH (07:54)
[2018-10-31] MEDS: FUROSEMIDE 40 MG TAB PO SCH ×2 (07:54→21:03)
[2018-10-31] MEDS: FOLIC ACID 1 MG TAB PO SCH (07:54)
[2018-10-31] MEDS: diphenhydrAMINE 25 MG CAP PO SCH (07:54)
[2018-10-31] MEDS: GABAPENTIN 300 MG CAP PO SCH ×2 (07:54→21:03)
[2018-10-31] MEDS: HYDROcodone/APAP 5-325MG 1 EACH TAB PO SCH (07:55)
[2018-10-31] MEDS: METOPROLOL SUCCINATE (ER) 50 MG TAB.ER.24H PO SCH (07:55)
[2018-10-31] MEDS: PANTOPRAZOLE 40 MG/10 ML VIAL IV SCH (07:56)
[2018-10-31] MEDS: PYRIDOXINE 50 MG TAB PO SCH (07:56)
[2018-10-31] MEDS: CYANOCOBALAMIN 500 MCG TAB PO SCH (07:57)
[2018-10-31 09:36] LABS: Anisocytosis Slight; Basophils % (A) 1 %; Eosinophils # (A) 0.2 k/uL (0-0.7); Eosinophils % (A) 4 %; HCT 34.8 % (39.0-53.0); HGB 10.5 gm/dL (13.0-17.5); Hypochromasia Moderate; Lymphocytes # (A) 0.8 k/uL (1.0-4.8); Lymphocytes % (A) 17 %; MCH 20.7 pg (25.0-35.0); MCHC 30.2 g/dL (31.0-37.0); MCV 68.7 fL (80.0-100.0); Mean Platelet Volume 6.6; Microcytosis Marked; Monocytes # (A) 0.3 k/uL (0-1.0); Monocytes % (A) 7 %; Neutrophils # (A) 3.3 k/uL (1.3-7.7); Neutrophils % (A) 69 %; Platelet Count 110 k/uL (150-450); Poikilocytosis Slight; RBC 5.06 m/uL (4.30-5.90); RDW 19.9 % (11.5-15.5); WBC 4.8 k/uL (3.8-10.6)
--- NOTE | 2018-10-31 09:44 | P.NPCON ---
History of Present Illness - Reason for Consult end stage renal disease - History of Present Illness Reason for consultation: End-stage renal disease History of present illness: Patient is a 63-year-old male seen in consultation for end-stage renal disease. He is maintained on hemodialysis on a Sunday schedule for left upper extremity AV graft. Patient completed hemodialysis yesterday. He states that he became nauseous after he had lunch yesterday. He denies any vomiting or diarrhea. Denies chest pain or shortness of breath. He does get dyspneic with exertion. No fever or chills. Denies abdominal pain. Hemodynamically he stable. CAT scan of the abdomen and pelvis done in the ER revealed no acute process. He is currently on a clear liquid diet. He does have long-standing history of diabetes mellitus. Vital signs are stable. General: The patient appeared well nourished and normally developed. HEENT: Head exam is unremarkable. Neck is without jugular venous distension. LUNGS: Lungs are clear to auscultation and percussion. Breath sounds decreased. HEART: Rate and Rhythm are regular. First and second heart sounds normal. No murmurs, rubs or gallops. ABDOMEN: Abdominal exam reveals normal bowel sounds. Non-tender and non- distended. No evidence of peritonitis. EXTREMITITES: No clubbing, cyanosis, or edema. 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 Past Anesthesia/Blood Transfusion Reactions: No Reported Reaction Additional Past Anesthesia/Blood Transfusion Reaction / Comment(s): Pt states he has woken during surgeries in the past. Date of Last Stent Placement:: 2008 Past Psychological History: No Psychological Hx Reported Additional Psychological History / Comment(s): . Lives with his and 2 dogs. Pt uses cane to ambulate. He drives. 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 Likes to golf. No animal exposures Smoking Status: Former smoker Past Alcohol Use History: None Reported Additional Past Alcohol Use History / Comment(s): Pt started smoking as a teen and quit in 1989 Past Drug Use History: None Reported - Past Family History Mother Family Medical History: Congestive Heart Failure (CHF) Additional Family Medical History / Comment(s): Mother lived to be 89 yrs old. Father Family Medical History: Congestive Heart Failure (CHF) Additional Family Medical History / Comment(s): Father lived to be 93 yrs old. Brother(s) Family Medical History: Congestive Heart Failure (CHF) Additional Family Medical History / Comment(s): Brother at the age of 67yrs. Medications and Allergies Home Medications Medication Instructions Recorded Confirmed Type Aspirin [Adult Low Dose Aspirin EC] 81 mg PO DAILY 10/23/16 10/30/18 History Atorvastatin [Lipitor] 10 mg PO HS 10/23/16 10/30/18 History Ergocalciferol (Vitamin D2) 50,000 unit PO Q14D 10/23/16 10/30/18 History [Vitamin D2] Sodium Polystyrene Sulfonate [SPS] 30 gm PO SUSA 10/23/16 10/30/18 History hydrALAZINE HCL 50 mg PO DAILY 10/23/16 10/30/18 History Gabapentin [Neurontin] 300 mg PO BID 08/29/17 10/30/18 History Pyridoxine [Vitamin B-6] 100 mg PO DAILY 08/29/17 10/30/18 History diphenhydrAMINE [Benadryl] 25 mg PO DAILY 08/29/17 10/30/18 History Folic Acid 0.8 mg PO DAILY 12/07/17 10/30/18 History Cinacalcet HCl [Sensipar] 60 mg PO DAILY 05/08/18 10/30/18 History Metoprolol Succinate (ER) [Toprol 50 mg PO DAILY 05/08/18 10/30/18 History XL] Calcium Acetate [PhosLo] 2,668 mg PO AC-TID 09/12/18 10/30/18 History Cyanocobalamin [Vitamin B-12] 500 mcg PO DAILY 09/12/18 10/30/18 History Furosemide [Lasix] 80 mg PO BID 09/12/18 10/30/18 History HYDROcodone/APAP 5-325MG [[place] 1 tab PO DAILY 09/12/18 10/30/18 History 5-325] Levothyroxine Sodium [Synthroid] 300 mcg PO DAILY 10/25/18 10/30/18 History Ondansetron HCl [Zofran] 8 mg PO Q8H PRN 10/25/18 10/30/18 History INSULIN ASPART (NovoLOG) [NovoLOG 13 unit SQ AC-SUPPER 10/30/18 10/30/18 History (formulary)] INSULIN ASPART (NovoLOG) [NovoLOG 15 units SQ AC-BRKFST 10/30/18 10/30/18 History (formulary)] INSULIN ASPART (NovoLOG) [NovoLOG 18 unit SQ AC-LUNCH 10/30/18 10/30/18 History (formulary)] Insulin NPH Human Isophane 16 unit SQ HS 10/30/18 10/30/18 History [NovoLIN N] Allergies Allergy/AdvReac Type Severity Reaction Status Date / Time No Known Allergies Allergy Verified 10/30/18 22:58 Physical Exam Vitals: Vital Signs Temp Pulse Pulse Resp BP BP Pulse Ox 10/31/18 05:30 97.9 F 76 16 144/83 93 L 10/31/18 02:01 97.7 F 66 16 161/96 93 L 10/30/18 23:36 70 16 118/62 96 10/30/18 19:58 98.5 F 84 18 139/74 95 Intake and Output 10/30/18 10/31/18 10/31/18 22:59 06:59 14:59 Intake Total 80 Balance 80 Intake: Intake, IV Titration 80 Amount Sodium Chloride 0.9% 1, 80 000 ml @ 20 mls/hr IV . Q24H ANGEL LUIS Rx#:[id number] Other: # Voids 0 Weight 115.666 kg 121 kg Results - Lab Results Most recent lab results Calcium 9.2 mg/dL (8.4-10.2) 10/30/18 21:09 10/31/18 09:25 10/30/18 21:09 Assessment and Plan Plan: Assessment: 1. End-stage renal disease maintained on hemodialysis on a Sunday schedule for a left upper extremity AV graft. 2. Nausea. ? Gastroparesis. CAT scan benign. GI consulted. 3. Chronic kidney disease mineral bone disease maintained on PhosLo and Sensipar. 4. Hypertension with chronic kidney disease. Controlled. 5. Hyperkalemia secondary to chronic kidney disease and high potassium intake. Blood sugars also on the higher side. Patient is maintained on Kayexalate as an outpatient. Currently stable. 6. Diabetes mellitus. Plan: Hemodialysis tomorrow. Thank you for the consultation. I will continue to follow the patient with you during his hospital stay.
[2018-10-31 09:51] LABS: Albumin 4.1 g/dL (3.5-5.0); Calcium 9.6 mg/dL (8.4-10.2); Potassium 5.3 mmol/L (3.5-5.1); Total Protein 6.1 g/dL (6.3-8.2)
--- NOTE | 2018-10-31 11:00 | P.HPIM ---
History of Present Illness H&P Date: 10/31/18 This is a 63-year-old male patient of Dr. Castaneda. Patient presented to the ER with complaints of nausea and vomiting. Patient reports it's this has been occurring over the past 6 months but has possibly gotten worse. States that nausea vomiting occurs proximally 4 hours after receiving hemodialysis. Patient receives hemodialysis Sunday. Additional medical history includes hyperkalemia, chronic anemia, diabetes mellitus type 2, neuropathy, heart cath with stents, hyperlipidemia, essential hypertension and end-stage renal disease. Patient reports that he does get occasional constipation. Patient denies any change to diet. Patient denies any alcohol consumption. Patient reports last colonoscopy was approximately 3 years ago and was normal. Patient denies ever having an EGD. Patient denies history of ulcers. Abnormal pelvis CT completed showing no acute process. At this time GI services will be consulted along with nephrology services. Will order amylase and lipase levels. At this time patient denies chest pain or shortness of breath. Patient does complain of some nausea. Patient denies any diarrhea or constipation at this time. Patient denies any urinary burning or frequency. Review of Systems please refer to HPI otherwise unremarkable Past Medical History Past Medical History: Heart Failure, Diabetes Mellitus, Dialysis, Hyperlipidemia, Hypertension, Renal Disease Additional Past Medical History / Comment(s): ESRD with hemodailysis MWF-last received 09/11/18, abdominal pain/nausea after sensipar in the past but not lately, hyperkalemia, chronic anemia, IDDM type II, neuropathy bilateral feet, bilateral eye retinopathy and leaking vessel behind R eye and recently told also now behind L eye, past R great toe diabetic ulcer which was healed thru [facility] but recently returned-clinical safety specialist is seeing pt and scaping the wound. 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 Past Anesthesia/Blood Transfusion Reactions: No Reported Reaction Additional Past Anesthesia/Blood Transfusion Reaction / Comment(s): Pt states he has woken during surgeries in the past. Date of Last Stent Placement:: 2008 Past Psychological History: No Psychological Hx Reported Additional Psychological History / Comment(s): . Lives with his and 2 dogs. Pt uses cane to ambulate. He drives. 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 No experience. Likes to golf. No animal exposures Smoking Status: Former smoker Past Alcohol Use History: None Reported Additional Past Alcohol Use History / Comment(s): Pt started smoking as a teen and quit in 1989 Past Drug Use History: None Reported - Past Family History Mother Family Medical History: Congestive Heart Failure (CHF) Additional Family Medical History / Comment(s): Mother lived to be 89 yrs old. Father Family Medical History: Congestive Heart Failure (CHF) Additional Family Medical History / Comment(s): Father lived to be 93 yrs old. Brother(s) Family Medical History: Congestive Heart Failure (CHF) Additional Family Medical History / Comment(s): Brother at the age of 67yrs. Medications and Allergies Home Medications Medication Instructions Recorded Confirmed Type Aspirin [Adult Low Dose Aspirin EC] 81 mg PO DAILY 10/23/16 10/30/18 History Atorvastatin [Lipitor] 10 mg PO HS 10/23/16 10/30/18 History Ergocalciferol (Vitamin D2) 50,000 unit PO Q14D 10/23/16 10/30/18 History [Vitamin D2] Sodium Polystyrene Sulfonate [SPS] 30 gm PO SUSA 10/23/16 10/30/18 History hydrALAZINE HCL 50 mg PO DAILY 10/23/16 10/30/18 History Gabapentin [Neurontin] 300 mg PO BID 08/29/17 10/30/18 History Pyridoxine [Vitamin B-6] 100 mg PO DAILY 08/29/17 10/30/18 History diphenhydrAMINE [Benadryl] 25 mg PO DAILY 08/29/17 10/30/18 History Folic Acid 0.8 mg PO DAILY 12/07/17 10/30/18 History Cinacalcet HCl [Sensipar] 60 mg PO DAILY 05/08/18 10/30/18 History Metoprolol Succinate (ER) [Toprol 50 mg PO DAILY 05/08/18 10/30/18 History XL] Calcium Acetate [PhosLo] 2,668 mg PO AC-TID 09/12/18 10/30/18 History Cyanocobalamin [Vitamin B-12] 500 mcg PO DAILY 09/12/18 10/30/18 History Furosemide [Lasix] 80 mg PO BID 09/12/18 10/30/18 History HYDROcodone/APAP 5-325MG [[place] 1 tab PO DAILY 09/12/18 10/30/18 History 5-325] Levothyroxine Sodium [Synthroid] 300 mcg PO DAILY 10/25/18 10/30/18 History Ondansetron HCl [Zofran] 8 mg PO Q8H PRN 10/25/18 10/30/18 History INSULIN ASPART (NovoLOG) [NovoLOG 13 unit SQ AC-SUPPER 10/30/18 10/30/18 History (formulary)] INSULIN ASPART (NovoLOG) [NovoLOG 15 units SQ AC-BRKFST 10/30/18 10/30/18 History (formulary)] INSULIN ASPART (NovoLOG) [NovoLOG 18 unit SQ AC-LUNCH 10/30/18 10/30/18 History (formulary)] Insulin NPH Human Isophane 16 unit SQ HS 10/30/18 10/30/18 History [NovoLIN N] Allergies Allergy/AdvReac Type Severity Reaction Status Date / Time No Known Allergies Allergy Verified 10/30/18 22:58 Physical Exam Vitals: Vital Signs Temp Pulse Pulse Resp BP BP Pulse Ox 10/31/18 05:30 97.9 F 76 16 144/83 93 L 10/31/18 02:01 97.7 F 66 16 161/96 93 L 10/30/18 23:36 70 16 118/62 96 10/30/18 19:58 98.5 F 84 18 139/74 95 Intake and Output 10/30/18 10/31/18 10/31/18 22:59 06:59 14:59 Intake Total 80 Balance 80 Intake: Intake, IV Titration 80 Amount Sodium Chloride 0.9% 1, 80 000 ml @ 20 mls/hr IV . Q24H ANGEL LUIS Rx#:[id number] Other: # Voids 0 Weight 115.666 kg 121 kg Head normocephalic Neck supple Lungs clear to auscultation bilaterally no wheezing or crackles Heart regular rate and rhythm S1-S2, no rub or gallop Abdomen some abdominal tenderness to epigastric area upon palpation. Patient is obese nondistended Extremities no edema Neuro alert and orientated to 3 Results CBC & Chem 7: 10/31/18 09:25 10/31/18 09:25 Labs: Abnormal Lab Results - Last 24 Hours (Table) 10/30/18 10/30/18 10/31/18 Range/Units 21:09 21:09 04:38 Hgb 10.9 L (13.0-17.5) gm/dL Hct 35.3 L (39.0-53.0) % MCV 71.4 L (80.0-100.0) fL MCH 21.9 L (25.0-35.0) pg MCHC 30.7 L (31.0-37.0) g/dL RDW 20.8 H (11.5-15.5) % Plt Count 124 L (150-450) k/uL Lymphocytes # (1.0-4.8) k/uL Sodium 136 L (137-145) mmol/L Potassium (3.5-5.1) mmol/L Chloride 97 L (98-107) mmol/L BUN 28 H (9-20) mg/dL Creatinine 5.88 H (0.66-1.25) mg/dL Glucose 305 H (74-99) mg/dL POC Glucose (mg/dL) 237 H (75-99) mg/dL Alkaline Phosphatase 138 H (38-126) U/L Total Protein (6.3-8.2) g/dL 10/31/18 10/31/18 10/31/18 Range/Units 06:39 09:25 09:25 Hgb 10.5 L (13.0-17.5) gm/dL Hct 34.8 L (39.0-53.0) % MCV 68.7 L (80.0-100.0) fL MCH 20.7 L (25.0-35.0) pg MCHC 30.2 L (31.0-37.0) g/dL RDW 19.9 H (11.5-15.5) % Plt Count 110 L (150-450) k/uL Lymphocytes # 0.8 L (1.0-4.8) k/uL Sodium 136 L (137-145) mmol/L Potassium 5.3 H (3.5-5.1) mmol/L Chloride 97 L (98-107) mmol/L BUN 34 H (9-20) mg/dL Creatinine 6.93 H (0.66-1.25) mg/dL Glucose 252 H (74-99) mg/dL POC Glucose (mg/dL) 262 H (75-99) mg/dL Alkaline Phosphatase (38-126) U/L Total Protein 6.1 L (6.3-8.2) g/dL Thrombosis Risk Factor Assmnt - Choose All That Apply Any of the Below Risk Factors Present?: No Other Risk Factors: Yes Each Risk Factor Represents 2 Points: Age 61-74 years Other congenital or acquired thrombophilia - If yes, enter type in comment: No Thrombosis Risk Factor Assessment Total Risk Factor Score: 2 Thrombosis Risk Factor Assessment Level: Low Risk Assessment and Plan Assessment: 1. Nausea and vomiting. CT of abdomen and pelvis completed showing no acute process. GI service is consulted. Amylase and lipase levels have been ordered 2. End-stage renal disease. Patient gets hemodialysis Sunday. Nephrology services have been consulted. Home medications resumed 3. Anemia of chronic disease 4. Diabetes mellitus type 2. Sliding scale insulin ordered 5. Essential hypertension 6. Hyperlipidemia 7. Hypothyroidism. Synthroid resumed DVT prophylaxis Lovenox. GI prophylaxis Protonix Amylase, lipase and TSH level ordered. GI and nephrology service is consulted. Time with Patient: Greater than 30 (Greater than 60% of the total time spent in counseling and coordination of care. I performed an examination of the patient and discussed their management with the Nurse Practitioner. I have reviewed the Nurse Practitioner's notes and agree with the documented findings and plan of care)
[2018-10-31 11:03] LABS: Glucose,Whole Blood 203 mg/dL (75-99)
[2018-10-31 12:05] LABS: Amylase <30 U/L (30-110); Lipase 49 U/L (23-300)
[2018-10-31] MEDS ORDERED: SENNOSIDES-DOCUSATE SODIUM 1 EACH TAB PO STA (14:49)
--- NOTE | 2018-10-31 14:57 | P.CONS ---
History of Present Illness - Reason for Consult Consult date: 10/31/18 Abdominal pain nausea Requesting physician: Debbie Bernal - Chief Complaint Nausea vomiting - History of Present Illness 63-year-old male diabetes, hyperlipidemia, heart failure, hypertension, end- stage renal disease Sunday dialysis admitted with intractable nausea bilateral lower abdominal discomfort associated with constipation without vomiting or bleeding. The symptoms have been present for at least [address] abdomen and pelvis no acute process. Last colonoscopy to his memory 3 years ago unremarkable. Patient states there is a pattern to his abdominal pain and nausea. Pain and nausea seems to worsen when receiving dialysis. Days he does not have dialysis she's not so symptomatic. No changes in appetite. He struggles with constipation has a bowel movement sometimes every other day. BM this morning was difficult to pass. He has tried stool softeners in the past only using senna without much success. No weight loss. No fevers. White count 4.8. Hemoglobin 10.5. Platelet 110. Sodium 136. Potassium 5.3. BUN 34. Creatinine 6.9. LFTs lipase normal. Review of Systems Constitutional: Denies fever, chills, sweats, weight gain, or loss. HEENT: Negative for migraines, blurred vision or loss, earaches, drainage, tinnitus, oral mucosal lesions, dysphagia, or odynophagia. Cardiac: Negative for chest pain, arrhythmias, or palpitation. Respiratory: Negative for shortness of breath, hemoptysis, cough, or sputum production. Gastrointestinal: See HPI for pertinent findings. Genitourinary: Negative for hematuria, urgency, frequency, polyuria, dysuria, or penile discharge. Musculoskeletal: Negative for muscle aches, swelling, arthritis, and arthralgias. Neurologic: Negative for stroke or TIA. Endocrine: Negative for thyroid problems. Skin: Negative for rash or itching. Psychiatric: Negative history for depression and anxiety Past Medical History Past Medical History: Heart Failure, Diabetes Mellitus, Dialysis, Hyperlipidemia, Hypertension, Renal Disease Additional Past Medical History / Comment(s): ESRD with hemodailysis MWF-last received 09/11/18, abdominal pain/nausea after sensipar in the past but not lately, hyperkalemia, chronic anemia, IDDM type II, neuropathy bilateral feet, bilateral eye retinopathy and leaking vessel behind R eye and recently told also now behind L eye, past R great toe diabetic ulcer which was healed thru [facility] but recently returned-addictions therapist is seeing pt and scaping the wound. 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 Past Anesthesia/Blood Transfusion Reactions: No Reported Reaction Additional Past Anesthesia/Blood Transfusion Reaction / Comm: Pt states he has woken during surgeries in the past. Date of Last Stent Placement:: 2008 Past Psychological History: No Psychological Hx Reported Additional Psychological History / Comment(s): . Lives with his and 2 dogs. Pt uses cane to ambulate. He drives. 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 No experience. Likes to golf. No animal exposures Smoking Status: Former smoker Past Alcohol Use History: None Reported Additional Past Alcohol Use History / Comment(s): Pt started smoking as a teen and quit in 1989 Past Drug Use History: None Reported - Past Family History Mother Family Medical History: Congestive Heart Failure (CHF) Additional Family Medical History / Comment(s): Mother lived to be 89 yrs old. Father Family Medical History: Congestive Heart Failure (CHF) Additional Family Medical History / Comment(s): Father lived to be 93 yrs old. Brother(s) Family Medical History: Congestive Heart Failure (CHF) Additional Family Medical History / Comment(s): Brother at the age of 67yrs. Medications and Allergies Home Medications Medication Instructions Recorded Confirmed Type Aspirin [Adult Low Dose Aspirin EC] 81 mg PO DAILY 10/23/16 10/30/18 History Atorvastatin [Lipitor] 10 mg PO HS 10/23/16 10/30/18 History Ergocalciferol (Vitamin D2) 50,000 unit PO Q14D 10/23/16 10/30/18 History [Vitamin D2] Sodium Polystyrene Sulfonate [SPS] 30 gm PO SUSA 10/23/16 10/30/18 History hydrALAZINE HCL 50 mg PO DAILY 10/23/16 10/30/18 History Gabapentin [Neurontin] 300 mg PO BID 08/29/17 10/30/18 History Pyridoxine [Vitamin B-6] 100 mg PO DAILY 08/29/17 10/30/18 History diphenhydrAMINE [Benadryl] 25 mg PO DAILY 08/29/17 10/30/18 History Folic Acid 0.8 mg PO DAILY 12/07/17 10/30/18 History Cinacalcet HCl [Sensipar] 60 mg PO DAILY 05/08/18 10/30/18 History Metoprolol Succinate (ER) [Toprol 50 mg PO DAILY 05/08/18 10/30/18 History XL] Calcium Acetate [PhosLo] 2,668 mg PO AC-TID 09/12/18 10/30/18 History Cyanocobalamin [Vitamin B-12] 500 mcg PO DAILY 09/12/18 10/30/18 History Furosemide [Lasix] 80 mg PO BID 09/12/18 10/30/18 History HYDROcodone/APAP 5-325MG [Morgan 1 tab PO DAILY 09/12/18 10/30/18 History 5-325] Levothyroxine Sodium [Synthroid] 300 mcg PO DAILY 10/25/18 10/30/18 History Ondansetron HCl [Zofran] 8 mg PO Q8H PRN 10/25/18 10/30/18 History INSULIN ASPART (NovoLOG) [NovoLOG 13 unit SQ AC-SUPPER 10/30/18 10/30/18 History (formulary)] INSULIN ASPART (NovoLOG) [NovoLOG 15 units SQ AC-BRKFST 10/30/18 10/30/18 History (formulary)] INSULIN ASPART (NovoLOG) [NovoLOG 18 unit SQ AC-LUNCH 10/30/18 10/30/18 History (formulary)] Insulin NPH Human Isophane 16 unit SQ HS 10/30/18 10/30/18 History [NovoLIN N] Allergies Allergy/AdvReac Type Severity Reaction Status Date / Time No Known Allergies Allergy Verified 10/30/18 22:58 Physical Exam Vitals: Vital Signs Temp Pulse Pulse Resp BP BP Pulse Ox 10/31/18 11:18 97.7 F 71 16 154/77 96 10/31/18 05:30 97.9 F 76 16 144/83 93 L 10/31/18 02:01 97.7 F 66 16 161/96 93 L 10/30/18 23:36 70 16 118/62 96 10/30/18 19:58 98.5 F 84 18 139/74 95 Intake and Output 10/30/18 10/31/18 10/31/18 22:59 06:59 14:59 Intake Total 80 Balance 80 Intake: Intake, IV Titration 80 Amount Sodium Chloride 0.9% 1, 80 000 ml @ 20 mls/hr IV . Q24H [facility] Rx#:[id number] Other: # Voids 0 Weight 115.666 kg 121 kg General appearance: The patient is alert, oriented, in no acute distress. HET: Head is normocephalic and atraumatic. Pupils are equal and reactive. Oropharynx is clear without lesions. Neck: Supple without lymphadenopathy. Trachea midline. Heart: S1 S2. Regular rate and rhythm. Lungs: No crackles or wheezes are heard. Abdomen: Soft, nontender, nondistended with bowel sounds. No peritoneal signs. No palpable organomegaly or masses. Extremities: Normal skin color and turgor. No cyanosis, rash, ulceration, clubbing, or edema. Radial and pedal pulses are 2/4 bilaterally. Neurological: No focal deficits. Strength and sensation are grossly intact. Results CBC & Chem 7: 10/31/18 09:25 10/31/18 09:25 Labs: Abnormal Lab Results - Last 24 Hours (Table) 10/30/18 10/30/18 10/31/18 Range/Units 21:09 21:09 04:38 Hgb 10.9 L (13.0-17.5) gm/dL Hct 35.3 L (39.0-53.0) % MCV 71.4 L (80.0-100.0) fL MCH 21.9 L (25.0-35.0) pg MCHC 30.7 L (31.0-37.0) g/dL RDW 20.8 H (11.5-15.5) % Plt Count 124 L (150-450) k/uL Lymphocytes # (1.0-4.8) k/uL Sodium 136 L (137-145) mmol/L Potassium (3.5-5.1) mmol/L Chloride 97 L (98-107) mmol/L BUN 28 H (9-20) mg/dL Creatinine 5.88 H (0.66-1.25) mg/dL Glucose 305 H (74-99) mg/dL POC Glucose (mg/dL) 237 H (75-99) mg/dL Alkaline Phosphatase 138 H (38-126) U/L Total Protein (6.3-8.2) g/dL Amylase (30-110) U/L 10/31/18 10/31/18 10/31/18 Range/Units 06:39 09:25 09:25 Hgb 10.5 L (13.0-17.5) gm/dL Hct 34.8 L (39.0-53.0) % MCV 68.7 L (80.0-100.0) fL MCH 20.7 L (25.0-35.0) pg MCHC 30.2 L (31.0-37.0) g/dL RDW 19.9 H (11.5-15.5) % Plt Count 110 L (150-450) k/uL Lymphocytes # 0.8 L (1.0-4.8) k/uL Sodium 136 L (137-145) mmol/L Potassium 5.3 H (3.5-5.1) mmol/L Chloride 97 L (98-107) mmol/L BUN 34 H (9-20) mg/dL Creatinine 6.93 H (0.66-1.25) mg/dL Glucose 252 H (74-99) mg/dL POC Glucose (mg/dL) 262 H (75-99) mg/dL Alkaline Phosphatase (38-126) U/L Total Protein 6.1 L (6.3-8.2) g/dL Amylase (30-110) U/L 10/31/18 10/31/18 Range/Units 09:25 11:02 Hgb (13.0-17.5) gm/dL Hct (39.0-53.0) % MCV (80.0-100.0) fL MCH (25.0-35.0) pg MCHC (31.0-37.0) g/dL RDW (11.5-15.5) % Plt Count (150-450) k/uL Lymphocytes # (1.0-4.8) k/uL Sodium (137-145) mmol/L Potassium (3.5-5.1) mmol/L Chloride (98-107) mmol/L BUN (9-20) mg/dL Creatinine (0.66-1.25) mg/dL Glucose (74-99) mg/dL POC Glucose (mg/dL) 203 H (75-99) mg/dL Alkaline Phosphatase (38-126) U/L Total Protein (6.3-8.2) g/dL Amylase <30 L (30-110) U/L CT scan - abdomen: report reviewed (Dr. Menjivar) Assessment and Plan (1) Abdominal pain Narrative/Plan: 63-year-old gentleman end-stage renal disease diabetes presents with bilateral lower abdominal pain constipation associated with nausea and exacerbated during dialysis treatments 6 months. Possible IBS-C. Constipation most likely exacerbating his symptoms. Last colonoscopy to his memory approximate 3 years ago reported as unremarkable. Current Visit: No Status: Acute Code(s): R10.9 - UNSPECIFIED ABDOMINAL PAIN SNOMED Code(s): 29482387 (2) End stage renal disease on dialysis Current Visit: Yes Status: Acute Code(s): N18.6 - END STAGE RENAL DISEASE; Z99.2 - DEPENDENCE ON RENAL DIALYSIS SNOMED Code(s): 177262052 (3) Diabetes mellitus Current Visit: Yes Status: Acute Code(s): E11.9 - TYPE 2 DIABETES MELLITUS WITHOUT COMPLICATIONS SNOMED Code(s): 20452789 (4) Chronic nausea Current Visit: Yes Status: Acute Code(s): R11.0 - NAUSEA SNOMED Code(s): 521412460 Plan: 1. Senokot-S 2 tabs twice a day will give dose now. Bentyl 10 mg 4 times a day first dose now. Renal diet as tolerated. Inpatient endoscopic exams not planned at this time. We'll reevaluate in office 7-10 days and discussion of possible outpatient EGD colonoscopy if necessary. Will follow closely with you. Thank you for this kind referral and the opportunity to participate in the care of your patient. This consultation was discussed with Dr. Menjivar. The impression and plan of care have been directed as dictated.
[2018-10-31] MEDS: DICYCLOMINE 10 MG CAP PO SCH ×3 (15:19→21:03)
[2018-10-31 17:11] LABS: Glucose,Whole Blood 119 mg/dL (75-99)
[2018-10-31 20:57] LABS: Glucose,Whole Blood 197 mg/dL (75-99)
[2018-10-31] MEDS ORDERED: ATORVASTATIN 10 MG TAB PO SCH (21:00)
[2018-10-31] MEDS: SENNOSIDES-DOCUSATE SODIUM 1 EACH TAB PO SCH (21:03)
[2018-10-31 21:18] VITALS: TEMP 97.5
[2018-11-01] MEDS: SODIUM CHLORIDE 0.9% 1,000 ML IV SCH (04:20)
[2018-11-01 04:56] VITALS: RESP 16
[2018-11-01] MEDS: HYDROmorphone 0.5 MG/0.5 ML SYRINGE IVP PRN (05:11)
[2018-11-01] MEDS: LEVOTHYROXINE 100 MCG TAB PO SCH (05:11)
[2018-11-01 07:05] LABS: Glucose,Whole Blood 169 mg/dL (75-99)
[2018-11-01] MEDS: INSULIN ASPART (NovoLOG) 100 UNIT/ML VIAL SQ SCH ×2 (07:56→12:27)
[2018-11-01] MEDS: CALCIUM ACETATE 667 MG CAP PO SCH ×2 (07:59→12:24)
[2018-11-01] MEDS: DICYCLOMINE 10 MG CAP PO SCH ×2 (08:02→12:25)
[2018-11-01 08:08] LABS: Anisocytosis Slight; Basophils % (A) 1 %; Eosinophils # (A) 0.3 k/uL (0-0.7); Eosinophils % (A) 6 %; HCT 35.6 % (39.0-53.0); Hypochromasia Marked; Lymphocytes # (A) 1.2 k/uL (1.0-4.8); Lymphocytes % (A) 22 %; MCH 21.7 pg (25.0-35.0); MCV 70.1 fL (80.0-100.0); Mean Platelet Volume 7.1; Microcytosis Marked; Monocytes # (A) 0.3 k/uL (0-1.0); Monocytes % (A) 6 %; Neutrophils # (A) 3.5 k/uL (1.3-7.7); Neutrophils % (A) 62 %; Platelet Count 125 k/uL (150-450); Poikilocytosis Slight; RBC 5.08 m/uL (4.30-5.90); WBC 5.6 k/uL (3.8-10.6)
[2018-11-01 08:29] LABS: Potassium 5.6 mmol/L (3.5-5.1); Total Protein 6.1 g/dL (6.3-8.2)
[2018-11-01] MEDS ORDERED: ENOXAPARIN 30 MG/0.3 ML SYRINGE SQ SCH (09:00)
[2018-11-01] MEDS ORDERED: FAMOTIDINE 20 MG TAB PO SCH (09:00)
[2018-11-01 10:30] LABS: Glucose,Whole Blood 138 mg/dL (75-99)
[2018-11-01 11:17] LABS: Glucose,Whole Blood 124 mg/dL (75-99)
--- NOTE | 2018-11-01 11:36 | P.PN ---
Subjective Progress Note Date: 11/01/18 Principal diagnosis: Nausea constipation and abdominal pain Nausea abdominal pain and constipation much improved. Presently denies abdominal pain. Receiving dialysis. No nausea. Passing bloody bowel movements. Tolerating renal diet. Objective - Vital Signs Vital signs: Vital Signs Temp 97.5 F L 11/01/18 04:55 Pulse 77 11/01/18 04:55 Resp 16 11/01/18 04:55 BP 150/72 11/01/18 04:55 Pulse Ox 95 11/01/18 04:55 Intake & Output 10/31/18 11/01/18 11/01/18 18:59 06:59 18:59 Intake Total 160 Output Total 30 Balance 160 -30 Intake: Intake, IV Titration 160 Amount Sodium Chloride 0.9% 1, 160 000 ml @ 20 mls/hr IV . Q24H [facility] Rx#:[id number] Output: Urine 30 Other: # Voids 0 2 - Exam General appearance: The patient is alert, oriented, in no acute distress. HET: Head is normocephalic and atraumatic. Pupils are equal and reactive. Oropharynx is clear without lesions. Neck: Supple without lymphadenopathy. Trachea midline. Heart: S1 S2. Regular rate and rhythm. Lungs: No crackles or wheezes are heard. Abdomen: Soft, nontender, nondistended with bowel sounds. No peritoneal signs. No palpable organomegaly or masses. Extremities: Normal skin color and turgor. No cyanosis, rash, ulceration, clubbing, or edema. Radial and pedal pulses are 2/4 bilaterally. Neurological: No focal deficits. Strength and sensation are grossly intact. - Labs CBC & Chem 7: 11/01/18 07:37 11/01/18 07:37 Labs: Abnormal Lab Results - Last 24 Hours (Table) 10/31/18 10/31/18 10/31/18 Range/Units 09:25 17:09 20:52 Hgb (13.0-17.5) gm/dL Hct (39.0-53.0) % MCV (80.0-100.0) fL MCH (25.0-35.0) pg RDW (11.5-15.5) % Plt Count (150-450) k/uL Sodium (137-145) mmol/L Potassium (3.5-5.1) mmol/L Chloride (98-107) mmol/L BUN (9-20) mg/dL Creatinine (0.66-1.25) mg/dL Glucose (74-99) mg/dL POC Glucose (mg/dL) 119 H 197 H (75-99) mg/dL Total Protein (6.3-8.2) g/dL Amylase <30 L (30-110) U/L 11/01/18 11/01/18 11/01/18 Range/Units 07:04 07:37 07:37 Hgb 11.0 L (13.0-17.5) gm/dL Hct 35.6 L (39.0-53.0) % MCV 70.1 L (80.0-100.0) fL MCH 21.7 L (25.0-35.0) pg RDW 20.0 H (11.5-15.5) % Plt Count 125 L (150-450) k/uL Sodium 135 L (137-145) mmol/L Potassium 5.6 H (3.5-5.1) mmol/L Chloride 96 L (98-107) mmol/L BUN 46 H (9-20) mg/dL Creatinine 9.16 H* (0.66-1.25) mg/dL Glucose 168 H (74-99) mg/dL POC Glucose (mg/dL) 169 H (75-99) mg/dL Total Protein 6.1 L (6.3-8.2) g/dL Amylase (30-110) U/L 11/01/18 11/01/18 Range/Units 10:28 11:15 Hgb (13.0-17.5) gm/dL Hct (39.0-53.0) % MCV (80.0-100.0) fL MCH (25.0-35.0) pg RDW (11.5-15.5) % Plt Count (150-450) k/uL Sodium (137-145) mmol/L Potassium (3.5-5.1) mmol/L Chloride (98-107) mmol/L BUN (9-20) mg/dL Creatinine (0.66-1.25) mg/dL Glucose (74-99) mg/dL POC Glucose (mg/dL) 138 H 124 H (75-99) mg/dL Total Protein (6.3-8.2) g/dL Amylase (30-110) U/L Assessment and Plan (1) Abdominal pain Narrative/Plan: 63-year-old gentleman end-stage renal disease diabetes presents with bilateral lower abdominal pain constipation associated with nausea and exacerbated during dialysis treatments 6 months. Possible IBS-C. Constipation most likely exacerbating his symptoms. Last colonoscopy to his memory approximate 3 years ago reported as unremarkable. Current Visit: No Status: Acute Code(s): R10.9 - UNSPECIFIED ABDOMINAL PAIN SNOMED Code(s): 37836237 (2) End stage renal disease on dialysis Current Visit: Yes Status: Acute Code(s): N18.6 - END STAGE RENAL DISEASE; Z99.2 - DEPENDENCE ON RENAL DIALYSIS SNOMED Code(s): 626522773 (3) Diabetes mellitus Current Visit: Yes Status: Acute Code(s): E11.9 - TYPE 2 DIABETES MELLITUS WITHOUT COMPLICATIONS SNOMED Code(s): 27504402 (4) Chronic nausea Current Visit: Yes Status: Acute Code(s): R11.0 - NAUSEA SNOMED Code(s): 666921639 Plan: 1. Overall clinically improved. Agreeable for discharge. Follow-up in office in 2 weeks. Bentyl 10 mg 4 times daily. Senokot-S 2 tabs twice a day. Prescriptions were provided. Assessment and plan a care discussed with Dr. Menjivar
[2018-11-01 11:50] VITALS: BP 169/75; PULSE 85
[2018-11-01] MEDS: FUROSEMIDE 40 MG TAB PO SCH (12:14)
[2018-11-01] MEDS: hydrALAZINE HCL 50 MG TAB PO SCH (12:15)
[2018-11-01] MEDS: SENNOSIDES-DOCUSATE SODIUM 1 EACH TAB PO SCH (12:15)
[2018-11-01] MEDS: CYANOCOBALAMIN 500 MCG TAB PO SCH (12:15)
[2018-11-01] MEDS: ASPIRIN 81 MG PO SCH (12:15)
[2018-11-01] MEDS: diphenhydrAMINE 25 MG CAP PO SCH (12:15)
[2018-11-01] MEDS: HYDROcodone/APAP 5-325MG 1 EACH TAB PO SCH (12:16)
[2018-11-01] MEDS: GABAPENTIN 300 MG CAP PO SCH (12:16)
[2018-11-01] MEDS: PANTOPRAZOLE 40 MG/10 ML VIAL IV SCH (12:17)
[2018-11-01] MEDS: CINACALCET 30 MG TAB PO SCH (12:22)
[2018-11-01] MEDS: METOPROLOL SUCCINATE (ER) 50 MG TAB.ER.24H PO SCH (12:23)
[2018-11-01] MEDS: FOLIC ACID 1 MG TAB PO SCH (12:23)
[2018-11-01] MEDS: PYRIDOXINE 50 MG TAB PO SCH (12:24)
--- NOTE | 2018-11-01 13:20 | P.PN ---
Subjective Patient is seen in follow-up for end-stage renal disease. He is maintained on hemodialysis on a Sunday schedule. Tolerated hemodialysis well this morning. Denies chest pain or shortness of breath. No vomiting or diarrhea. Nausea has improved. Vital signs are stable. General: The patient appeared well nourished and normally developed. HEENT: Head exam is unremarkable. Neck is without jugular venous distension. LUNGS: Lungs are clear to auscultation and percussion. Breath sounds decreased. HEART: Rate and Rhythm are regular. First and second heart sounds normal. No murmurs, rubs or gallops. ABDOMEN: Abdominal exam reveals normal bowel sounds. Non-tender and non- distended. No evidence of peritonitis. EXTREMITITES: No clubbing, cyanosis, or edema. Objective - Vital Signs Vital signs: Vital Signs Temp 97.5 F L 11/01/18 11:40 Pulse 85 11/01/18 11:40 Resp 16 11/01/18 11:40 BP 169/75 11/01/18 11:40 Pulse Ox 98 11/01/18 11:40 Intake & Output 10/31/18 11/01/18 11/01/18 18:59 06:59 18:59 Intake Total 160 Output Total 30 Balance 160 -30 Intake: Intake, IV Titration 160 Amount Sodium Chloride 0.9% 1, 160 000 ml @ 20 mls/hr IV . Q24H [facility] Rx#:[id number] Output: Urine 30 Other: # Voids 0 2 - Labs CBC & Chem 7: 11/01/18 07:37 11/01/18 07:37 Labs: Abnormal Lab Results - Last 24 Hours (Table) 10/31/18 10/31/18 11/01/18 Range/Units 17:09 20:52 07:04 Hgb (13.0-17.5) gm/dL Hct (39.0-53.0) % MCV (80.0-100.0) fL MCH (25.0-35.0) pg RDW (11.5-15.5) % Plt Count (150-450) k/uL Sodium (137-145) mmol/L Potassium (3.5-5.1) mmol/L Chloride (98-107) mmol/L BUN (9-20) mg/dL Creatinine (0.66-1.25) mg/dL Glucose (74-99) mg/dL POC Glucose (mg/dL) 119 H 197 H 169 H (75-99) mg/dL Total Protein (6.3-8.2) g/dL 11/01/18 11/01/18 11/01/18 Range/Units 07:37 07:37 10:28 Hgb 11.0 L (13.0-17.5) gm/dL Hct 35.6 L (39.0-53.0) % MCV 70.1 L (80.0-100.0) fL MCH 21.7 L (25.0-35.0) pg RDW 20.0 H (11.5-15.5) % Plt Count 125 L (150-450) k/uL Sodium 135 L (137-145) mmol/L Potassium 5.6 H (3.5-5.1) mmol/L Chloride 96 L (98-107) mmol/L BUN 46 H (9-20) mg/dL Creatinine 9.16 H* (0.66-1.25) mg/dL Glucose 168 H (74-99) mg/dL POC Glucose (mg/dL) 138 H (75-99) mg/dL Total Protein 6.1 L (6.3-8.2) g/dL 11/01/18 Range/Units 11:15 Hgb (13.0-17.5) gm/dL Hct (39.0-53.0) % MCV (80.0-100.0) fL MCH (25.0-35.0) pg RDW (11.5-15.5) % Plt Count (150-450) k/uL Sodium (137-145) mmol/L Potassium (3.5-5.1) mmol/L Chloride (98-107) mmol/L BUN (9-20) mg/dL Creatinine (0.66-1.25) mg/dL Glucose (74-99) mg/dL POC Glucose (mg/dL) 124 H (75-99) mg/dL Total Protein (6.3-8.2) g/dL Assessment and Plan Plan: Assessment: 1. End-stage renal disease maintained on hemodialysis on a Sunday schedule for a left upper extremity AV graft. 2. Nausea. ? Gastroparesis versus constipation. CAT scan benign. GI following. 3. Chronic kidney disease mineral bone disease maintained on PhosLo and Sensipar. 4. Hypertension with chronic kidney disease. Stable. 5. Hyperkalemia secondary to chronic kidney disease and high potassium intake. Patient is maintained on Kayexalate as an outpatient. Currently stable. 6. Diabetes mellitus. Plan: Hemodialysis on Sunday. Potential discharge this evening if able to tolerate dinner.
--- NOTE | 2018-11-01 14:39 | P.DS ---
Providers Date of admission: 10/30/18 22:28 Expected date of discharge: 11/01/18 Attending physician: Debbie Bernal Consults: 10/30/18 22:28 Consult Physician Routine Consulting Provider: Azalia Natarajan Consult Reason/Comments: Intractable nausea, abdominal pain Do you want consulting provider notified?: Yes, Notify in am 10/31/18 08:20 Consult Physician Routine Consulting Provider: Jennifer Langford Consult Reason/Comments: ESRD Do you want consulting provider notified?: Yes Primary care physician: Jazmin Castaneda [facility] Course: Discharge diagnosis 1. Nausea and vomiting. CT of abdomen and pelvis completed showing no acute process. Amylase and lipase within normal limits. Patient was seen by GI services. Patient has been started on Bentyl 4 times daily and Senokot 2 tabs twice a day. Patient has been cleared for discharge from GI services. Patient to follow-up outpatient in 7-10 days and discussion of possible outpatient EGD colonoscopy necessary 2. End-stage renal disease. Patient gets hemodialysis Sunday. Nephrology services have been consulted. Home medications resumed 3. Anemia of chronic disease 4. Diabetes mellitus type 2. Sliding scale insulin ordered 5. Essential hypertension 6. Hyperlipidemia 7. Hypothyroidism. Synthroid resumed 8. Hypokalemia potassium 5.6 patient to receive hemodialysis today prior to discharge. Patient to follow-up with hemodialysis and nephrology services Hospital course This is a 63-year-old male patient of Dr. Castaneda. Patient presented to the ER with complaints of nausea and vomiting. Patient reports it's this has been occurring over the past 6 months but has possibly gotten worse. States that nausea vomiting occurs proximally 4 hours after receiving hemodialysis. Patient receives hemodialysis Sunday. Additional medical history includes hyperkalemia, chronic anemia, diabetes mellitus type 2, neuropathy, heart cath with stents, hyperlipidemia, essential hypertension and end-stage renal disease. Patient reports that he does get occasional constipation. Patient denies any change to diet. Patient denies any alcohol consumption. Patient reports last colonoscopy was approximately 3 years ago and was normal. Patient denies ever having an EGD. Patient denies history of ulcers. Abnormal pelvis CT completed showing no acute process. At this time GI services will be consulted along with nephrology services. Will order amylase and lipase levels. At this time patient denies chest pain or shortness of breath. Patient does complain of some nausea. Patient denies any diarrhea or constipation at this time. Patient denies any urinary burning or frequency. On 11/01/2018 patient alert and oriented 3. Patient is about ready to get hemodialysis. Patient is on stage renal patient hemodialysis schedule Sunday. Patient reports that his nausea significantly improved. Patient was seen by GI services and started on Bentyl and Senokot for constipation. Patient to follow-up with GI services in 1 week for possible outpatient EGD and colonoscopy. At this time patient denies chest pain or shortness breath. Patient denies nausea vomiting or diarrhea. Patient denies any urinary burning or frequency. I performed an examination of the patient and discussed their management with the Nurse Practitioner. I have reviewed the Nurse Practitioner's notes and agree with the documented findings and plan of care Patient Condition at Discharge: Stable Plan - Discharge Summary Discharge Rx Participant: No New Discharge Prescriptions: New Sennosides-Docusate Sodium [Senokot-S] 2 tab PO BID #120 tablet Dicyclomine [Bentyl] 10 mg PO QID #120 capsule Continue Sodium Polystyrene Sulfonate [SPS] 30 gm PO SUSA hydrALAZINE HCL 50 mg PO DAILY Atorvastatin [Lipitor] 10 mg PO HS Ergocalciferol (Vitamin D2) [Vitamin D2] 50,000 unit PO Q14D Aspirin [Adult Low Dose Aspirin EC] 81 mg PO DAILY Pyridoxine [Vitamin B-6] 100 mg PO DAILY Gabapentin [Neurontin] 300 mg PO BID diphenhydrAMINE [Benadryl] 25 mg PO DAILY Folic Acid 0.8 mg PO DAILY Cinacalcet HCl [Sensipar] 60 mg PO DAILY Metoprolol Succinate (ER) [Toprol XL] 50 mg PO DAILY HYDROcodone/APAP 5-325MG [[place] 5-325] 1 tab PO DAILY Cyanocobalamin [Vitamin B-12] 500 mcg PO DAILY Furosemide [Lasix] 80 mg PO BID Calcium Acetate [PhosLo] 2,668 mg PO AC-TID Levothyroxine Sodium [Synthroid] 300 mcg PO DAILY Ondansetron HCl [Zofran] 8 mg PO Q8H PRN PRN Reason: Nausea INSULIN ASPART (NovoLOG) [NovoLOG (formulary)] 15 units SQ AC-BRKFST INSULIN ASPART (NovoLOG) [NovoLOG (formulary)] 18 unit SQ AC-LUNCH INSULIN ASPART (NovoLOG) [NovoLOG (formulary)] 13 unit SQ AC-SUPPER Insulin NPH Human Isophane [NovoLIN N] 16 unit SQ HS Discharge Medication List Aspirin [Adult Low Dose Aspirin EC] 81 mg PO DAILY 10/23/16 [History] Atorvastatin [Lipitor] 10 mg PO HS 10/23/16 [History] Ergocalciferol (Vitamin D2) [Vitamin D2] 50,000 unit PO Q14D 10/23/16 [History] Sodium Polystyrene Sulfonate [SPS] 30 gm PO SUSA 10/23/16 [History] hydrALAZINE HCL 50 mg PO DAILY 10/23/16 [History] Gabapentin [Neurontin] 300 mg PO BID 08/29/17 [History] Pyridoxine [Vitamin B-6] 100 mg PO DAILY 08/29/17 [History] diphenhydrAMINE [Benadryl] 25 mg PO DAILY 08/29/17 [History] Folic Acid 0.8 mg PO DAILY 12/07/17 [History] Cinacalcet HCl [Sensipar] 60 mg PO DAILY 05/08/18 [History] Metoprolol Succinate (ER) [Toprol XL] 50 mg PO DAILY 05/08/18 [History] Calcium Acetate [PhosLo] 2,668 mg PO AC-TID 09/12/18 [History] Cyanocobalamin [Vitamin B-12] 500 mcg PO DAILY 09/12/18 [History] Furosemide [Lasix] 80 mg PO BID 09/12/18 [History] HYDROcodone/APAP 5-325MG [[place] 5-325] 1 tab PO DAILY 09/12/18 [History] Levothyroxine Sodium [Synthroid] 300 mcg PO DAILY 10/25/18 [History] Ondansetron HCl [Zofran] 8 mg PO Q8H PRN 10/25/18 [History] INSULIN ASPART (NovoLOG) [NovoLOG (formulary)] 13 unit SQ AC-SUPPER 10/30/18 [History] INSULIN ASPART (NovoLOG) [NovoLOG (formulary)] 15 units SQ AC-BRKFST 10/30/18 [History] INSULIN ASPART (NovoLOG) [NovoLOG (formulary)] 18 unit SQ AC-LUNCH 10/30/18 [History] Insulin NPH Human Isophane [NovoLIN N] 16 unit SQ HS 10/30/18 [History] Dicyclomine [Bentyl] 10 mg PO QID #120 capsule 11/01/18 [Rx] Sennosides-Docusate Sodium [Senokot-S] 2 tab PO BID #120 tablet 11/01/18 [Rx] Follow up Appointment(s)/Referral(s): Jazmin Castaneda MD [Primary Care Provider] - 1-2 days Esteban Menjivar MD [STAFF PHYSICIAN] - 11/19/18 12:00 pm
[2018-11-02] MEDS ORDERED: PANTOPRAZOLE 40 MG TABLET PO SCH (07:30)
[2018-11-04] MEDS ORDERED: ERGOCALCIFEROL 50,000 UNIT CAP PO SCH (09:00)
== END 2018-11-01 16:35 | disposition home or self-care (01) ==
LOC: EC 19:48 → 3NMEDONC 22:28
PROVIDERS: ADMIT Internal Medicine; ATTEND Internal Medicine
DX: R11.2 Nausea with vomiting, unspecified (principal); I12.0 Hypertensive chronic kidney disease with stage 5 chronic kidney disease or end stage renal disease; N18.6 End stage renal disease; Z99.2 Dependence on renal dialysis; E03.9 Hypothyroidism, unspecified; E78.5 Hyperlipidemia, unspecified; E11.22 Type 2 diabetes mellitus with diabetic chronic kidney disease; E87.6 Hypokalemia; D63.1 Anemia in chronic kidney disease; E11.43 Type 2 diabetes mellitus with diabetic autonomic (poly)neuropathy; E87.5 Hyperkalemia; I13.2 Hypertensive heart and chronic kidney disease with heart failure and with stage 5 chronic kidney disease, or end stage renal disease; I50.9 Heart failure, unspecified; K31.84 Gastroparesis; E11.319 Type 2 diabetes mellitus with unspecified diabetic retinopathy without macular edema; E83.89 Other disorders of mineral metabolism; Z95.5 Presence of coronary angioplasty implant and graft; K59.00 Constipation, unspecified; Z79.4 Long term (current) use of insulin; Z79.82 Long term (current) use of aspirin; Z79.890 Hormone replacement therapy; Z79.899 Other long term (current) drug therapy; Z87.891 Personal history of nicotine dependence; Z96.641 Presence of right artificial hip joint; Z82.49 Family history of ischemic heart disease and other diseases of the circulatory system
CPT/HCPCS: 96376 ×2; 96361 ×3; 96372; 96375 ×2; 96374; 99284; 99285; 36415; 80053 ×3; 84443; 82150 ×2; 83690 ×2; 83735; 85025 ×3; 74018; 74176; G0257 ×2; G0378 ×3; J1200; J2765; J2405 ×2; J1650; J1170 ×3; C9113 ×2; 90935

== ENCOUNTER 2018-11-08 17:16 | Emergency (ER) | payer MEDICARE, BC ==
[2018-11-08 17:23] VITALS: TEMP 97.5
[2018-11-08] MEDS ORDERED: DICYCLOMINE 10 MG/ML 2 ML AMP IM STA (18:46)
[2018-11-08] MEDS ORDERED: HYDROcodone/APAP 5-325MG 1 EACH TAB PO STA ×2 (18:47→18:50)
--- NOTE | 2018-11-08 19:08 | ED ---
Abdominal Pain HPI - General Source: patient Mode of arrival: ambulatory Limitations: no limitations <Vijay Fabian - Last Filed: 11/08/18 20:33> <Pradeep Bhakta - Last Filed: 11/08/18 22:39> - General Chief Complaint: Abdominal Pain Stated Complaint: abdominal spasms Time Seen by Provider: 11/08/18 18:28 - History of Present Illness Initial Comments: This is a 63-year-old male with a history of renal failure is getting dialysis 3 times a week presents to the emergency department with abdominal spasms. Pat rosie states he normally gets abdominal spasms after dialysis treatment. Patient states he was here last week for the same issue and he was given Bentyl which resolved his pain. Patient states today pain started at noon after his dialysis treatment so he took hydrocodone and Bentyl at 3 PM but the pain is not resolved. Patient says the pain is an 8 and describes it as constant and cramping in the suprapubic region. Patient denies urinary incontinence or dysuria. She denies nausea or vomiting but reports 5 loose bowel movements today due to taking stool softeners which he was prescribed. He has still not see a safety and occupational health manager. He also complains of feeling cold. (Vijay Fabian) - Related Data Home Medications Medication Instructions Recorded Confirmed Aspirin [Adult Low Dose Aspirin EC] 81 mg PO DAILY 10/23/16 11/08/18 Atorvastatin [Lipitor] 10 mg PO HS 10/23/16 11/08/18 Ergocalciferol (Vitamin D2) 50,000 unit PO Q14D 10/23/16 11/08/18 [Vitamin D2] Sodium Polystyrene Sulfonate [SPS] 30 gm PO SUSA 10/23/16 11/08/18 hydrALAZINE HCL 50 mg PO DAILY 10/23/16 11/08/18 Pyridoxine [Vitamin B-6] 100 mg PO DAILY 08/29/17 11/08/18 diphenhydrAMINE [Benadryl] 25 mg PO DAILY 08/29/17 11/08/18 Folic Acid 0.8 mg PO DAILY 12/07/17 11/08/18 Cinacalcet HCl [Sensipar] 60 mg PO DAILY 05/08/18 11/08/18 Metoprolol Succinate (ER) [Toprol 50 mg PO DAILY 05/08/18 11/08/18 XL] Calcium Acetate [PhosLo] 2,668 mg PO AC-TID 09/12/18 11/08/18 Cyanocobalamin [Vitamin B-12] 500 mcg PO DAILY 09/12/18 11/08/18 Furosemide [Lasix] 80 mg PO BID 09/12/18 11/08/18 HYDROcodone/APAP 5-325MG [[place] 1 tab PO DAILY 09/12/18 11/08/18 5-325] Levothyroxine Sodium [Synthroid] 300 mcg PO DAILY 10/25/18 11/08/18 INSULIN ASPART (NovoLOG) [NovoLOG 9 units SQ AC-BRKFST 10/30/18 11/08/18 (formulary)] INSULIN ASPART (NovoLOG) [NovoLOG 12 unit SQ AC-LUNCH 10/30/18 11/08/18 (formulary)] INSULIN ASPART (NovoLOG) [NovoLOG 12 unit SQ AC-SUPPER 10/30/18 11/08/18 (formulary)] Insulin NPH Human Isophane 14 unit SQ HS 10/30/18 11/08/18 [NovoLIN N] Ibuprofen [Motrin Ib] 200 mg PO BID 11/08/18 11/08/18 Previous Rx's Medication Instructions Recorded Dicyclomine [Bentyl] 10 mg PO QID #120 capsule 11/01/18 Sennosides-Docusate Sodium 2 tab PO BID #120 tablet 11/01/18 [Senokot-S] Allergies Allergy/AdvReac Type Severity Reaction Status Date / Time No Known Allergies Allergy Verified 11/08/18 19:11 Review of Systems ROS Other: All systems not noted in ROS Statement are negative. <Vijay Fabian - Last Filed: 11/08/18 20:33> ROS Other: All systems not noted in ROS Statement are negative. <Pradeep Bhakta - Last Filed: 11/08/18 22:39> ROS Statement: Those systems with pertinent positive or pertinent negative responses have been documented in the HPI. Past Medical History Past Medical History: Heart Failure, Diabetes Mellitus, Dialysis, Hyperlipidemia, Hypertension, Renal Disease Additional Past Medical History / Comment(s): ESRD with hemodailysis MWF-last received 09/11/18, abdominal pain/nausea after sensipar in the past but not lately, hyperkalemia, chronic anemia, IDDM type II, neuropathy bilateral feet, bilateral eye retinopathy and leaking vessel behind R eye and recently told also now behind L eye, past R great toe diabetic ulcer which was healed thru [facility] but recently returned-pier hand is seeing pt and scaping the wound. 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 Past Anesthesia/Blood Transfusion Reactions: No Reported Reaction Additional Past Anesthesia/Blood Transfusion Reaction / Comment(s): Pt states he has woken during surgeries in the past. Date of Last Stent Placement:: 2008 Past Psychological History: No Psychological Hx Reported Smoking Status: Former smoker Past Alcohol Use History: None Reported Past Drug Use History: None Reported - Past Family History Mother Family Medical History: Congestive Heart Failure (CHF) Additional Family Medical History / Comment(s): Mother lived to be 89 yrs old. Father Family Medical History: Congestive Heart Failure (CHF) Additional Family Medical History / Comment(s): Father lived to be 93 yrs old. Brother(s) Family Medical History: Congestive Heart Failure (CHF) Additional Family Medical History / Comment(s): Brother at the age of 67yrs. <Vijay Fabian - Last Filed: 11/08/18 20:33> General Exam Limitations: no limitations General appearance: alert, obese Head exam: Present: atraumatic, normocephalic, normal inspection Eye exam: Present: normal appearance, PERRL, EOMI Pupils: Present: normal accommodation ENT exam: Present: normal exam Neck exam: Present: normal inspection Respiratory exam: Present: normal lung sounds bilaterally. Absent: respiratory distress, wheezes, rales, rhonchi, stridor Cardiovascular Exam: Present: regular rate, normal rhythm, normal heart sounds GI/Abdominal exam: Present: soft, normal bowel sounds. Absent: guarding, rebound, pulsatile mass Extremities exam: Present: normal inspection, normal capillary refill Back exam: Present: normal inspection Neurological exam: Present: alert, oriented X3 Skin exam: Present: warm <Vijay Fabian - Last Filed: 11/08/18 20:33> Course Vital Signs 11/08/18 17:20 Temperature 97.5 F L Pulse Rate 74 Respiratory 22 Rate Blood Pressure 147/76 O2 Sat by Pulse 97 Oximetry Medical Decision Making - Lab Data Result diagrams: 11/08/18 19:33 11/08/18 19:33 <Vijay Fabian - Last Filed: 11/08/18 20:33> - Lab Data Result diagrams: 11/08/18 19:33 11/08/18 19:33 <Pradeep Bhakta - Last Filed: 11/08/18 22:39> - Lab Data Lab Results 11/08/18 11/08/18 Range/Units 19:33 19:33 WBC 7.1 (3.8-10.6) k/uL RBC 5.06 (4.30-5.90) m/uL Hgb 10.7 L (13.0-17.5) gm/dL Hct 34.9 L (39.0-53.0) % MCV 69.0 L (80.0-100.0) fL MCH 21.1 L (25.0-35.0) pg MCHC 30.6 L (31.0-37.0) g/dL RDW 19.0 H (11.5-15.5) % Plt Count 136 L (150-450) k/uL Neutrophils % 74 % Lymphocytes % 17 % Monocytes % 7 % Eosinophils % 1 % Basophils % 0 % Neutrophils # 5.2 (1.3-7.7) k/uL Lymphocytes # 1.2 (1.0-4.8) k/uL Monocytes # 0.5 (0-1.0) k/uL Eosinophils # 0.1 (0-0.7) k/uL Basophils # 0.0 (0-0.2) k/uL Hypochromasia Slight Poikilocytosis Slight Anisocytosis Slight Microcytosis Marked Sodium 137 (137-145) mmol/L Potassium 4.0 (3.5-5.1) mmol/L Chloride 94 L (98-107) mmol/L Carbon Dioxide 32 H (22-30) mmol/L Anion Gap 11 mmol/L BUN 41 H (9-20) mg/dL Creatinine 5.94 H (0.66-1.25) mg/dL Est GFR (CKD-EPI)AfAm 11 (>60 ml/min/1.73 sqM) Est GFR (CKD-EPI)NonAf 9 (>60 ml/min/1.73 sqM) Glucose 165 H (74-99) mg/dL Calcium 9.5 (8.4-10.2) mg/dL Total Bilirubin 1.0 (0.2-1.3) mg/dL AST 28 (17-59) U/L ALT 34 (21-72) U/L Alkaline Phosphatase 122 (38-126) U/L Total Protein 6.2 L (6.3-8.2) g/dL Albumin 4.1 (3.5-5.0) g/dL Amylase 41 (30-110) U/L Lipase 90 (23-300) U/L Disposition <Vijay Fabian - Last Filed: 11/08/18 20:33> Is patient prescribed a controlled substance at d/c from ED?: No <Pradeep Bhakta - Last Filed: 11/08/18 22:39> Clinical Impression: Abdominal pain Disposition: HOME SELF-CARE Condition: Good Instructions (If sedation given, give patient instructions): Abdominal Pain (ED) Referrals: Jazmin Castaneda MD [Primary Care Provider] - 1-2 days
[2018-11-08 19:50] LABS: Anisocytosis Slight; Basophils % (A) 0 %; Eosinophils # (A) 0.1 k/uL (0-0.7); Eosinophils % (A) 1 %; HCT 34.9 % (39.0-53.0); HGB 10.7 gm/dL (13.0-17.5); Hypochromasia Slight; Lymphocytes # (A) 1.2 k/uL (1.0-4.8); Lymphocytes % (A) 17 %; MCH 21.1 pg (25.0-35.0); MCHC 30.6 g/dL (31.0-37.0); Mean Platelet Volume 6.9; Microcytosis Marked; Monocytes # (A) 0.5 k/uL (0-1.0); Monocytes % (A) 7 %; Neutrophils # (A) 5.2 k/uL (1.3-7.7); Neutrophils % (A) 74 %; Platelet Count 136 k/uL (150-450); Poikilocytosis Slight; RBC 5.06 m/uL (4.30-5.90); WBC 7.1 k/uL (3.8-10.6)
--- NOTE | 2018-11-08 19:57 | XR ---
EXAMINATION TYPE: XR KUB DATE OF EXAM: 11/08/2018 COMPARISON: 10/30/2018 HISTORY: Abdominal pain TECHNIQUE: 2 views FINDINGS: There is no sign of intestinal obstruction or pneumoperitoneum. Fecal pattern is normal. Th ere is right hip prosthesis. There is subsegmental atelectasis at the left lung base. There are no pa thologic calcifications over the kidneys. IMPRESSION: Nonacute abdomen. There is new minimal subsegmental atelectasis left lung base compared t o last exam.
[2018-11-08 19:59] LABS: Albumin 4.1 g/dL (3.5-5.0); Calcium 9.5 mg/dL (8.4-10.2); Total Protein 6.2 g/dL (6.3-8.2)
[2018-11-08] MEDS ORDERED: METOCLOPRAMIDE 5 MG/ML 2 ML VIAL IVP STA (21:24)
[2018-11-08] MEDS ORDERED: LORazepam 2 MG/ML INJ IV STA (21:24)
[2018-11-09] MEDS ORDERED: HYDROmorphone 0.5 MG/0.5 ML SYRINGE IVP STA (00:26)
[2018-11-09 05:02] VITALS: BP 143/64; PULSE 77; RESP 16
== END 2018-11-09 05:02 | disposition home or self-care (01) ==
LOC: EC 17:16
DX: R10.30 Lower abdominal pain, unspecified (principal); R19.5 Other fecal abnormalities; I13.2 Hypertensive heart and chronic kidney disease with heart failure and with stage 5 chronic kidney disease, or end stage renal disease; I50.9 Heart failure, unspecified; N18.6 End stage renal disease; E11.22 Type 2 diabetes mellitus with diabetic chronic kidney disease; D63.1 Anemia in chronic kidney disease; E11.42 Type 2 diabetes mellitus with diabetic polyneuropathy; E11.319 Type 2 diabetes mellitus with unspecified diabetic retinopathy without macular edema; Z87.891 Personal history of nicotine dependence; Z79.1 Long term (current) use of non-steroidal anti-inflammatories (NSAID); Z79.4 Long term (current) use of insulin; Z79.82 Long term (current) use of aspirin; Z79.890 Hormone replacement therapy; Z79.891 Long term (current) use of opiate analgesic; Z79.899 Other long term (current) drug therapy; Z99.2 Dependence on renal dialysis; Z95.5 Presence of coronary angioplasty implant and graft; Z96.641 Presence of right artificial hip joint
CPT/HCPCS: 36415; 80053; 82150; 83690; 85025; 74018; 99284; 96374; 96375 ×2; 96372; J2060; J0500; J2765

== ENCOUNTER → 2018-11-21 | Outpatient (CLI) | payer MEDICARE, BC | END | disposition home or self-care (01) | LOC: LABWHC1 11:41 | PROVIDERS: ATTEND Family Medicine | DX: R10.9 Unspecified abdominal pain (principal); R68.83 Chills (without fever); N18.6 End stage renal disease; Z99.2 Dependence on renal dialysis | CPT/HCPCS: 36415; 87040 ==

== ENCOUNTER 2018-11-29 04:03 | Emergency (ER) | payer MEDICARE, BC ==
--- NOTE | 2018-11-29 04:55 | XR ---
EXAM: XR Chest, 1 View CLINICAL HISTORY: dyspnea TECHNIQUE: Frontal view of the chest. COMPARISON: 01/15/2018 FINDINGS: Lungs: Peribronchial cuffing, likely reactive, although infectious versus inflammatory airways disease would be included in the differential. Pleural space: No definitive pleural effusions on this frontal view. No pneumothorax. Heart: Mild cardiomegaly, not seen on prior study, with findings suggestive of mild pulmonary vascular congestion/pulmonary edema, interval worsening since prior study. Mediastinum: Essentially unchanged. Bones/joints: Essentially unchanged. IMPRESSION: 1. Mild cardiomegaly, not seen on prior study, with findings suggestive of mild pulmonary vascular congestion/pulmonary edema, interval worsening since prior study. 2. Peribronchial cuffing, likely reactive, although infectious versus inflammatory airways disease would be included in the differential.
--- NOTE | 2018-11-29 05:05 | ED ---
SOB HPI - General Chief Complaint: Shortness of Breath Stated Complaint: ROB Time Seen by Provider: 11/29/18 04:33 Source: EMS Mode of arrival: EMS - History of Present Illness Initial Comments: 's patient is 63-year-old man with history of end-stage renal disease on hemodialysis, who complains of worsening of shortness of breath and also leg swelling. The patient states that he believes he has fluid overload. Patient's last dialysis was Sunday and went normally. He states that since that time he had been drinking Gatorade to replenish his electrolytes. Patient states that his breathing is worse if he is lying flat. He is having cough with occasional clear sputum. He states that his legs are swollen. Patient states that she has tried taking Lasix but he only urinates every second or third day anyways. MD Complaint: shortness of breath, cough -: hour(s) Severity: moderate Severity scale (1-10): 0 Consistency: constant Improves With: upright position Worsens With: lying flat Known History Of: congestive heart failure Associated Symptoms: denies other symptoms - Related Data Home Medications Medication Instructions Recorded Confirmed Aspirin [Adult Low Dose Aspirin EC] 81 mg PO DAILY 10/23/16 11/08/18 Atorvastatin [Lipitor] 10 mg PO HS 10/23/16 11/08/18 Ergocalciferol (Vitamin D2) 50,000 unit PO Q14D 10/23/16 11/08/18 [Vitamin D2] Sodium Polystyrene Sulfonate [SPS] 30 gm PO SUSA 10/23/16 11/08/18 hydrALAZINE HCL 50 mg PO DAILY 10/23/16 11/08/18 Pyridoxine [Vitamin B-6] 100 mg PO DAILY 08/29/17 11/08/18 diphenhydrAMINE [Benadryl] 25 mg PO DAILY 08/29/17 11/08/18 Folic Acid 0.8 mg PO DAILY 12/07/17 11/08/18 Cinacalcet HCl [Sensipar] 60 mg PO DAILY 05/08/18 11/08/18 Metoprolol Succinate (ER) [Toprol 50 mg PO DAILY 05/08/18 11/08/18 XL] Calcium Acetate [PhosLo] 2,668 mg PO AC-TID 09/12/18 11/08/18 Cyanocobalamin [Vitamin B-12] 500 mcg PO DAILY 09/12/18 11/08/18 Furosemide [Lasix] 80 mg PO BID 09/12/18 11/08/18 HYDROcodone/APAP 5-325MG [[place] 1 tab PO DAILY 09/12/18 11/08/18 5-325] Levothyroxine Sodium [Synthroid] 300 mcg PO DAILY 10/25/18 11/08/18 INSULIN ASPART (NovoLOG) [NovoLOG 9 units SQ AC-BRKFST 10/30/18 11/08/18 (formulary)] INSULIN ASPART (NovoLOG) [NovoLOG 12 unit SQ AC-LUNCH 10/30/18 11/08/18 (formulary)] INSULIN ASPART (NovoLOG) [NovoLOG 12 unit SQ AC-SUPPER 10/30/18 11/08/18 (formulary)] Insulin NPH Human Isophane 14 unit SQ HS 10/30/18 11/08/18 [NovoLIN N] Ibuprofen [Motrin Ib] 200 mg PO BID 11/08/18 11/08/18 Previous Rx's Medication Instructions Recorded Dicyclomine [Bentyl] 10 mg PO QID #120 capsule 11/01/18 Sennosides-Docusate Sodium 2 tab PO BID #120 tablet 11/01/18 [Senokot-S] Allergies Allergy/AdvReac Type Severity Reaction Status Date / Time No Known Allergies Allergy Verified 11/29/18 04:33 Review of Systems ROS Statement: Those systems with pertinent positive or pertinent negative responses have been documented in the HPI. ROS Other: All systems not noted in ROS Statement are negative. Constitutional: Denies: fever, chills, weakness Respiratory: Reports: cough, dyspnea. Denies: wheezes, hemoptysis Cardiovascular: Reports: orthopnea, edema. Denies: chest pain, palpitations, syncope Gastrointestinal: Denies: abdominal pain, vomiting, diarrhea Genitourinary: Reports: as per HPI Musculoskeletal: Denies: back pain Neurological: Denies: headache, weakness, numbness Past Medical History Past Medical History: Heart Failure, Diabetes Mellitus, Dialysis, Hyperlipidemia, Hypertension, Renal Disease Additional Past Medical History / Comment(s): ESRD with hemodailysis MWF-last received 09/11/18, abdominal pain/nausea after sensipar in the past but not lately, hyperkalemia, chronic anemia, IDDM type II, neuropathy bilateral feet, bilateral eye retinopathy and leaking vessel behind R eye and recently told also now behind L eye, past R great toe diabetic ulcer which was healed thru [facility] but recently returned-travel information center supervisor is seeing pt and scaping the wound. 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 Past Anesthesia/Blood Transfusion Reactions: No Reported Reaction Additional Past Anesthesia/Blood Transfusion Reaction / Comment(s): Pt states he has woken during surgeries in the past. Date of Last Stent Placement:: 2008 Past Psychological History: No Psychological Hx Reported Smoking Status: Former smoker Past Alcohol Use History: None Reported Past Drug Use History: None Reported - Past Family History Mother Family Medical History: Congestive Heart Failure (CHF) Additional Family Medical History / Comment(s): Mother lived to be 89 yrs old. Father Family Medical History: Congestive Heart Failure (CHF) Additional Family Medical History / Comment(s): Father lived to be 93 yrs old. Brother(s) Family Medical History: Congestive Heart Failure (CHF) Additional Family Medical History / Comment(s): Brother at the age of 67yrs. General Exam General appearance: alert, in no apparent distress Head exam: Present: atraumatic, normocephalic Eye exam: Present: normal appearance. Absent: scleral icterus, conjunctival injection Respiratory exam: Present: rales. Absent: respiratory distress, wheezes (Bilateral bases), rhonchi, stridor, accessory muscle use, decreased breath sounds, prolonged expiratory Cardiovascular Exam: Present: regular rate, normal rhythm, normal heart sounds. Absent: systolic murmur, diastolic murmur, rubs, gallop GI/Abdominal exam: Present: soft. Absent: distended, tenderness, guarding, rebound, rigid, mass Extremities exam: Present: normal inspection, normal capillary refill, pedal edema. Absent: calf tenderness Back exam: Present: normal inspection. Absent: CVA tenderness (R), CVA tenderness (L) Neurological exam: Present: alert Skin exam: Present: warm, dry, intact, normal color. Absent: rash Course Vital Signs 11/29/18 11/29/18 11/29/18 04:24 05:35 06:13 Temperature 98.7 F Pulse Rate 75 75 75 Respiratory 16 20 22 Rate Blood Pressure 155/73 157/87 162/91 O2 Sat by Pulse 98 98 94 L Oximetry 11/29/18 11/29/18 06:28 06:50 Temperature 99.1 F Pulse Rate 75 74 Respiratory 20 17 Rate Blood Pressure 146/87 139/96 O2 Sat by Pulse 98 99 Oximetry Medical Decision Making - Medical Decision Making 's patient is 63-year-old man end-stage renal disease on hemodialysis. He is having some fluid overload. The patient's findings are discussed with his information technology technician, Dr. Dougherty, who would like the patient to receive some medications for his symptoms and go directly to his dialysis session where they will remove extra fluid. - Lab Data Result diagrams: 11/29/18 04:10 11/29/18 04:10 Lab Results 11/29/18 11/29/18 11/29/18 Range/Units 04:10 04:10 04:10 WBC 4.4 (3.8-10.6) k/uL RBC 4.24 L (4.30-5.90) m/uL Hgb 8.8 L D (13.0-17.5) gm/dL Hct 28.7 L (39.0-53.0) % MCV 67.7 L (80.0-100.0) fL MCH 20.8 L (25.0-35.0) pg MCHC 30.8 L (31.0-37.0) g/dL RDW 19.0 H (11.5-15.5) % Plt Count 100 L (150-450) k/uL Neutrophils % (Manual) 51 % Band Neutrophils % 4 % Lymphocytes % (Manual) 27 % Monocytes % (Manual) 10 % Eosinophils % (Manual) 8 % Neutrophils # (Manual) 2.40 (1.3-7.7) k/uL Lymphocytes # (Manual) 1.19 (1.0-4.8) k/uL Monocytes # (Manual) 0.44 (0-1.0) k/uL Eosinophils # (Manual) 0.35 (0-0.7) k/uL Nucleated RBCs 0 (0-0) /100 WBC Manual Slide Review Performed Hypochromasia Marked Poikilocytosis Slight Anisocytosis Slight Microcytosis Marked Target Cells Present Tear Drop Cells Present Ovalocytes Present Fragmented RBCs Present Sodium 132 L (137-145) mmol/L Potassium 5.5 H (3.5-5.1) mmol/L Chloride 94 L (98-107) mmol/L Carbon Dioxide 24 (22-30) mmol/L Anion Gap 14 mmol/L BUN 47 H (9-20) mg/dL Creatinine 8.41 H* (0.66-1.25) mg/dL Est GFR (CKD-EPI)AfAm 7 (>60 ml/min/1.73 sqM) Est GFR (CKD-EPI)NonAf 6 (>60 ml/min/1.73 sqM) Glucose 203 H (74-99) mg/dL Calcium 9.6 (8.4-10.2) mg/dL Total Bilirubin 0.9 (0.2-1.3) mg/dL AST 44 (17-59) U/L ALT 24 (21-72) U/L Alkaline Phosphatase 98 (38-126) U/L NT-Pro-B Natriuret Pep 90198 pg/mL Total Protein 6.1 L (6.3-8.2) g/dL Albumin 4.0 (3.5-5.0) g/dL Disposition Clinical Impression: End stage renal disease on dialysis, Volume overload Disposition: HOME SELF-CARE Condition: Fair Instructions (If sedation given, give patient instructions): Chronic Kidney Disease (ED) Is patient prescribed a controlled substance at d/c from ED?: No Referrals: Jazmin Castaneda MD [Primary Care Provider] - 1-2 days
[2018-11-29 05:09] LABS: Calcium 9.6 mg/dL (8.4-10.2); Potassium 5.5 mmol/L (3.5-5.1); Total Bilirubin 0.9 mg/dL (0.2-1.3); Total Protein 6.1 g/dL (6.3-8.2)
[2018-11-29 05:19] LABS: Anisocytosis Slight; HCT 28.7 % (39.0-53.0); Hypochromasia Marked; MCH 20.8 pg (25.0-35.0); MCHC 30.8 g/dL (31.0-37.0); MCV 67.7 fL (80.0-100.0); Mean Platelet Volume 7.2; Microcytosis Marked; Platelet Count 100 k/uL (150-450); Poikilocytosis Slight; RBC 4.24 m/uL (4.30-5.90); WBC 4.4 k/uL (3.8-10.6)
[2018-11-29 05:47] LABS: HGB 8.8 gm/dL (13.0-17.5)
[2018-11-29] MEDS ORDERED: NITROGLYCERIN OINT 1 INCH/GM PACKET TOPICAL STA (06:14)
[2018-11-29] MEDS ORDERED: MORPHINE SULFATE 4 MG/ML SYRINGE IV STA (06:14)
[2018-11-29] MEDS ORDERED: FUROSEMIDE 10 MG/ML 10 ML VIAL IV STA (06:14)
[2018-11-29 06:20] LABS: Band Neutrophils % 4 %; Eosinophils # (M) 0.35 k/uL (0-0.7); Lymphocytes # (M) 1.19 k/uL (1.0-4.8); Monocytes # (M) 0.44 k/uL (0-1.0); Neutrophils % (M) 51 %; Nucleated Red Blood Cells 0 /100 WBC (0-0); Total Cells Counted 100
[2018-11-29 06:21] LABS: Ovalocytes Present; Target Cells Present
[2018-11-29 06:22] LABS: RBC Fragments Present
[2018-11-29 06:25] LABS: Tear Drop Cells Present
[2018-11-29 07:03] VITALS: BP 139/96; PULSE 74; RESP 17; TEMP 99.1
== END 2018-11-29 06:50 | disposition home or self-care (01) ==
LOC: EC 04:03
DX: I13.2 Hypertensive heart and chronic kidney disease with heart failure and with stage 5 chronic kidney disease, or end stage renal disease (principal); E11.22 Type 2 diabetes mellitus with diabetic chronic kidney disease; N18.6 End stage renal disease; I50.9 Heart failure, unspecified; E87.70 Fluid overload, unspecified; R06.02 Shortness of breath; R05 Cough; E78.5 Hyperlipidemia, unspecified; E11.40 Type 2 diabetes mellitus with diabetic neuropathy, unspecified; Z99.2 Dependence on renal dialysis; Z95.5 Presence of coronary angioplasty implant and graft; Z96.641 Presence of right artificial hip joint; Z87.891 Personal history of nicotine dependence; Z82.49 Family history of ischemic heart disease and other diseases of the circulatory system; Z79.82 Long term (current) use of aspirin; Z79.891 Long term (current) use of opiate analgesic; Z79.890 Hormone replacement therapy; Z79.4 Long term (current) use of insulin; Z79.1 Long term (current) use of non-steroidal anti-inflammatories (NSAID); Z79.899 Other long term (current) drug therapy
CPT/HCPCS: 36415; 71045; 80053; 83880; 85025; 96374; 96375; 99285

== ENCOUNTER 2018-12-12 08:58 | Day surgery (SDC) | payer MEDICARE, BC ==
[2018-12-10 13:46] VITALS: BMI 41.6
[~2018-12-12 08:58] MED LIST: LACTATED RINGERS 1,000 ML IV SCH; LIDOCAINE 1% 20 ML VIAL (10MG/ML) FOR IV START INTRADERMA PRN
[2018-12-12 09:23] VITALS: RESP 18; TEMP 97.8
[2018-12-12] MEDS ORDERED: LACTATED RINGERS 1,000 ML IV ONE (09:24)
[2018-12-12 09:32] LABS: Glucose,Whole Blood 251 mg/dL (75-99)
[2018-12-12] MEDS ORDERED: PROPOFOL 10 MG/ML 20 ML VIAL IV ONE (10:12)
[2018-12-12] MEDS ORDERED: GLYCOPYRROLATE 0.2 MG/ML 2 ML VIAL ONE (10:12)
[2018-12-12] MEDS ORDERED: SODIUM CHLORIDE 0.9% 250 ML IV ONE (10:14)
--- NOTE | 2018-12-12 10:49 | P.PCN ---
Date of Procedure: 12/12/18 Description of Procedure: Brief history: 63-year-old patient was seen in the hospital with complaints of abdominal pain. The patient reports frequent episodes of abdominal pain, with some relief with Bentyl therapy. Previous evaluation was with computed tomography scan of the abdomen which was negative. In addition he reports worsening constipation. Currently on a bowel regimen including MiraLAX. Procedure performed: Esophagogastroduodenoscopy with biopsy Colonoscopy Estimated blood loss: Minimal. Preoperative diagnosis: Abdominal pain, change in bowel habits Anesthesia: MAC Procedure: After informed consent was obtained from the patient was brought into the endoscopy unit and IV sedation was administered by anesthesia under continuous monitoring. Initially upper endoscopy was done. The Olympus GF 190 video endoscope was inserted inserted into the mouth and esophagus intubated without any difficulty and was gradually advanced into the stomach and duodenum and carefully examined. The bulb and second part of the duodenum were significant for erythema and superficial erosions consistent with moderate duodenitis with biopsies taken. The scope was then withdrawn into the stomach adequately insufflated with air and upon careful examination the antrum and body, cardia and fundus appeared grossly normal, there was however diffuse erythema in the antrum and body suggestive of moderate gastritis with biopsies taken. The scope was then withdrawn into the esophagus. Hiatal hernia was noted. The GE junction was located at 40 cm to the incisors. It appeared regular with no erythema erosions or ulcerations. Rest of the esophagus appeared normal. Patie nt tolerated the procedure well. At this time the patient continued to remain sedation. Initial digital rectal examination was normal. Olympus CF 190 video colonoscope was then inserted into the rectum and gradually advanced to the cecum without any difficulty. Careful examination was performed as the scope was gradually being withdrawn. The prep was good. The cecum, ascending colon, transverse colon, descending colon, sigmoid colon and rectum appeared normal. Retroflexion was performed in the rectum and no lesions were noted, mild internal hemorrhoids noted. Patient tolerated the procedure well. Impression: 1. Moderate gastritis antrum and body biopsied. Moderate duodenitis biopsied. Hiatal hernia. 2. Mild internal hemorrhoids. Recommendations: Findings of this examination were discussed with the patient as well as his . Okay to resume diet. Continue Bentyl therapy as needed. Will add omeprazole 20 mg twice daily. Await pathology from biopsies. Follow up with astroenterology as previously scheduled.
[2018-12-12 11:07] LABS: Glucose,Whole Blood 225 mg/dL (75-99)
[2018-12-12 11:18] VITALS: BP 146/85; PULSE 89
== END 2018-12-12 12:00 | disposition home or self-care (01) ==
LOC: ORWHC2ENDO 08:58
PROVIDERS: ATTEND Internal Medicine
DX: K59.00 Constipation, unspecified (principal); K44.9 Diaphragmatic hernia without obstruction or gangrene; K29.80 Duodenitis without bleeding; K29.50 Unspecified chronic gastritis without bleeding; K64.8 Other hemorrhoids; I25.10 Atherosclerotic heart disease of native coronary artery without angina pectoris; I11.0 Hypertensive heart disease with heart failure; I50.9 Heart failure, unspecified; E78.5 Hyperlipidemia, unspecified; Z95.5 Presence of coronary angioplasty implant and graft; E11.9 Type 2 diabetes mellitus without complications; Z87.891 Personal history of nicotine dependence; Z79.82 Long term (current) use of aspirin; Z79.899 Other long term (current) drug therapy; Z79.4 Long term (current) use of insulin; Z96.641 Presence of right artificial hip joint
CPT/HCPCS: 88305; 45378; 43239; J2704

== ENCOUNTER 2018-12-20 16:24 | Emergency (ER) | payer MEDICARE, BC ==
[2018-12-20 17:14] VITALS: RESP 18
[2018-12-20] MEDS ORDERED: MORPHINE SULFATE 2 MG/ML SYRINGE IVP STA (18:10)
[2018-12-20] MEDS ORDERED: SODIUM CHLORIDE 0.9% 500 ML 500 ML IV STA (18:10)
--- NOTE | 2018-12-20 18:30 | ED ---
General Adult HPI - General Chief complaint: Abdominal Pain Stated complaint: Abd cramping/pain Time Seen by Provider: 12/20/18 17:58 Source: patient, RN notes reviewed, old records reviewed Mode of arrival: wheelchair Limitations: no limitations - History of Present Illness Initial comments: 63-year-old male patient past medical history of ESRD on dialysis, CHF, type 2 diabetes, hyperlipidemia, hypertension presents to ED with recurrent complaint of left lower quadrant pain. Patient was that he has a complaints of abdominal pain for approximately 5 months. Patient reports that he recently had a colonoscopy and endoscopy on which did not demonstrate acute pathology. Patient reports that he has been evaluated multiple times this abdominal pain without pathology identified. Patient reports that he had dialysis as scheduled this morning. Patient reports that approximately 2 PM he began to develop left lower quadrant abdominal pain. Patient describes this as a waxing and waning, cramping and stabbing pain. Patient reports that the pain causes him to have some mild dizziness. Patient denies any chest pain shortness breath at this time. Reports of nausea without emesis. She did report approximately 2 episodes of loose stool today. Patient states that he has some baseline shortness of breath with exertion states this is not significantly worse. Systemic: Pt denies fatigue, fever/chills, rash. Pt denies weakness, night sw eats, weight loss. Neuro: Pt denies headache, visual disturbances, syncope or pre-syncope. HEENT: Pt denies ocular discharge or irritation, otalgia, rhinorrhea, pharyngitis or notable lymphadenopathy. Cardiopulmonary: Pt denies chest pain, heart palpitations, dyspnea on exertion. Abdominal/GI: Pt denies emesis. : Pt denies dysuria, burning w/ urination, frequency/urgency. Denies new onset urinary or bowel incontinence. MSK: Pt denies myalgia, loss of strength or function in extremities. Neuro: Pt denies new onset weakness, paresthesias. - Related Data Home Medications Medication Instructions Recorded Confirmed Aspirin [Adult Low Dose Aspirin EC] 81 mg PO DAILY 10/23/16 12/10/18 Atorvastatin [Lipitor] 10 mg PO HS 10/23/16 12/10/18 Ergocalciferol (Vitamin D2) 50,000 unit PO Q14D 10/23/16 12/10/18 [Vitamin D2] hydrALAZINE HCL 50 mg PO QAM 10/23/16 12/10/18 Pyridoxine [Vitamin B-6] 100 mg PO DAILY 08/29/17 12/10/18 diphenhydrAMINE [Benadryl] 25 mg PO DAILY 08/29/17 12/10/18 Folic Acid 0.8 mg PO DAILY 12/07/17 12/10/18 Cinacalcet HCl [Sensipar] 60 mg PO Q3D PRN 05/08/18 12/10/18 Metoprolol Succinate (ER) [Toprol 50 mg PO QAM 05/08/18 12/10/18 XL] Calcium Acetate [PhosLo] 2,668 mg PO AC-TID 09/12/18 12/10/18 Cyanocobalamin [Vitamin B-12] 500 mcg PO DAILY 09/12/18 12/10/18 Furosemide [Lasix] 80 mg PO DAILY 09/12/18 12/10/18 Levothyroxine Sodium [Synthroid] 300 mcg PO QAM 10/25/18 12/10/18 INSULIN ASPART (NovoLOG) [NovoLOG 9 units SQ AC-BRKFST 10/30/18 12/10/18 (formulary)] INSULIN ASPART (NovoLOG) [NovoLOG 12 unit SQ AC-SUPPER 10/30/18 12/10/18 (formulary)] INSULIN ASPART (NovoLOG) [NovoLOG 14 unit SQ AC-LUNCH 10/30/18 12/10/18 (formulary)] Insulin NPH Human Isophane 17 unit SQ HS 10/30/18 12/10/18 [NovoLIN N] Ibuprofen [Motrin Ib] 200 mg PO BID PRN 11/08/18 12/10/18 Dicyclomine [Bentyl] 20 mg PO QID 12/10/18 12/10/18 Polyethylene Glycol 3350 [Miralax] 17 gm PO DAILY 12/10/18 12/10/18 traMADol HCL [Ultram] 50 mg PO DAILY PRN 12/10/18 12/10/18 Allergies Allergy/AdvReac Type Severity Reaction Status Date / Time No Known Allergies Allergy Verified 12/20/18 17:14 Review of Systems ROS Statement: Those systems with pertinent positive or pertinent negative responses have been documented in the HPI. ROS Other: All systems not noted in ROS Statement are negative. Past Medical History Past Medical History: Heart Failure, Diabetes Mellitus, Dialysis, Hyperlipidemia, Hypertension, Renal Disease Additional Past Medical History / Comment(s): 50 ounces fluid restrictions per day.ESRD with hemodailysis MWF- abdominal pain/nausea, hyperkalemia, chronic anemia, IDDM type II, neuropathy bilateral feet, bilateral eye retinopathy and leaking vessel behind R eye and recently told also now behind L eye, past R great toe diabetic ulcer which was healed thru 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 Past Anesthesia/Blood Transfusion Reactions: No Reported Reaction Additional Past Anesthesia/Blood Transfusion Reaction / Comment(s): Pt states he has woken during surgeries in the past. Date of Last Stent Placement:: 2008 Past Psychological History: No Psychological Hx Reported Smoking Status: Former smoker Past Alcohol Use History: None Reported Past Drug Use History: None Reported - Past Family History Mother Family Medical History: Congestive Heart Failure (CHF) Additional Family Medical History / Comment(s): Mother lived to be 89 yrs old. Father Family Medical History: Congestive Heart Failure (CHF) Additional Family Medical History / Comment(s): Father lived to be 93 yrs old. Brother(s) Family Medical History: Congestive Heart Failure (CHF) Additional Family Medical History / Comment(s): Brother at the age of 67yrs. General Exam - General Exam Comments Initial Comments: Constitutional: NAD, AOX3, Pt has pleasant affect. HEENT: NC/AT, trachea midline, neck supple, no lymphadenopathy. Posterior pharynx non erythematous, without exudates. External ears appear normal, without discharge. Mucous membranes moist. Eyes PERRLA, EOM intact. There is no scleral icterus. No pallor noted. Cardiopulmonary: RRR, no murmurs, rubs or gallops, no JVD noted. Lungs CTAB in anterior and posterior muller. No peripheral edema. Abdominal exam: Abdomen soft and non-distended. Abdomen mildly tender in LLQ, no other areas of abdominal tenderness. No guarding or rigidity. Bowel sounds a ctive in LLQ. No hepatosplenomegaly. No ecchymosis Neuro: CN II-XII intact. No nuchal rigidity. No raccon eyes, no zacarias sign, no hemotympanum. No cervical spinal tenderness. MSK: No posterior calf tenderness bilaterally, homans sign negative bilaterally. Posterior tibialis and radial pulse +2 bilaterally. Sensation intact in upper and lower extremities. Full active ROM in upper and lower extremities, 5/5 stregnth. Limitations: no limitations Course Vital Signs 12/20/18 12/20/18 12/20/18 17:12 18:50 20:00 Temperature 98.4 F Pulse Rate 84 76 78 Respiratory 18 18 18 Rate Blood Pressure 129/71 146/71 136/80 O2 Sat by Pulse 98 99 98 Oximetry Medical Decision Making - Medical Decision Making 63-year-old male patient with past history of ESRD on dialysis, CHF, type 2 diabetes, hypertension presents ED with left lower quadrant abdominal pain. Patient is a he has had this complaint for approximate 5 months. I continue history taking patient does state that this pain generally occurs approximately 4 hours after dialysis treatment. Patient have today. Patient had a colonoscopy and endoscopy within the last week but did not display acute pathology. Patient reports that approximately 4 hours after last treatment today he began to experience left lower quadrant abdominal pain. Patient describes it as a cramping and sharp pain. Patient states that due to the pain he did have some dizziness. Denies any other complaints. Patient also stable, afebrile. Physical exam displayed abdomen mildly tender to palpation left lower quadrant region. No other areas of abdominal tenderness. Neurologic exam within normal limits. Left investigations revealed a mild anemia of 8.4. This is decreased from 8.8 approximately 3 weeks ago. Patient denies any melena, any rectal bleeding. CMP displayed elevated creatinine, glucose mildly elevated 223. Alk phos mildly elevated at 130. Lipase within normal limits. Occult blood is negative. CT abdomen and pelvis displayed no acute process. Nonacute findings included renal atrophy, atherosclerotic vascular disease, splenomegaly, mild atelectasis at the left lung base. Atelectasis as mildly increased. Chest x-ray revealed slight increased lung markings, no heart failure seen, improved aeration of the lungs and clearly positional mild edema compared to last exam. EKG displayed no significant change from prior EKG, no concerns for acute ischemia. Patient is feeling much improved with pain medication and IV fluids. I believe that due to recent extensive investigations of abdominal pain is likely the pain is related to cramping after fluid removal during hemodialys is. Patient will be discharged, follow up with primary care provider in 1-2 days for continued evaluation. Patient will continue to follow up with Dr. Menjivar for evaluation of splenomegaly. Case discussed with Dr. Mcintyre. - Lab Data Result diagrams: 12/20/18 18:36 12/20/18 18:36 Lab Results 12/20/18 12/20/18 12/20/18 Range/Units 18:36 18:36 18:36 WBC 4.1 (3.8-10.6) k/uL RBC 4.00 L (4.30-5.90) m/uL Hgb 8.4 L (13.0-17.5) gm/dL Hct 26.9 L (39.0-53.0) % MCV 67.3 L (80.0-100.0) fL MCH 21.0 L (25.0-35.0) pg MCHC 31.2 (31.0-37.0) g/dL RDW 19.8 H (11.5-15.5) % Plt Count 118 L (150-450) k/uL Neutrophils % 59 % Lymphocytes % 25 % Monocytes % 7 % Eosinophils % 4 % Basophils % 0 % Neutrophils # 2.5 (1.3-7.7) k/uL Lymphocytes # 1.0 (1.0-4.8) k/uL Monocytes # 0.3 (0-1.0) k/uL Eosinophils # 0.2 (0-0.7) k/uL Basophils # 0.0 (0-0.2) k/uL Hypochromasia Marked Poikilocytosis Moderate Anisocytosis Slight Microcytosis Marked Sodium 138 (137-145) mmol/L Potassium 4.2 (3.5-5.1) mmol/L Chloride 98 (98-107) mmol/L Carbon Dioxide 31 H (22-30) mmol/L Anion Gap 9 mmol/L BUN 20 (9-20) mg/dL Creatinine 4.64 H (0.66-1.25) mg/dL Est GFR (CKD-EPI)AfAm 14 (>60 ml/min/1.73 sqM) Est GFR (CKD-EPI)NonAf 12 (>60 ml/min/1.73 sqM) Glucose 223 H (74-99) mg/dL Plasma Lactic Acid Yonny 1.2 (0.7-2.0) mmol/L Calcium 9.8 (8.4-10.2) mg/dL Magnesium (1.6-2.3) mg/dL Total Bilirubin 0.8 (0.2-1.3) mg/dL AST 34 (17-59) U/L ALT 27 (21-72) U/L Alkaline Phosphatase 130 H (38-126) U/L Total Protein 5.9 L (6.3-8.2) g/dL Albumin 3.9 (3.5-5.0) g/dL Lipase 31 (23-300) U/L Stool Occult Blood (Negative) 12/20/18 12/20/18 Range/Units 18:36 20:07 WBC (3.8-10.6) k/uL RBC (4.30-5.90) m/uL Hgb (13.0-17.5) gm/dL Hct (39.0-53.0) % MCV (80.0-100.0) fL MCH (25.0-35.0) pg MCHC (31.0-37.0) g/dL RDW (11.5-15.5) % Plt Count (150-450) k/uL Neutrophils % % Lymphocytes % % Monocytes % % Eosinophils % % Basophils % % Neutrophils # (1.3-7.7) k/uL Lymphocytes # (1.0-4.8) k/uL Monocytes # (0-1.0) k/uL Eosinophils # (0-0.7) k/uL Basophils # (0-0.2) k/uL Hypochromasia Poikilocytosis Anisocytosis Microcytosis Sodium (137-145) mmol/L Potassium (3.5-5.1) mmol/L Chloride (98-107) mmol/L Carbon Dioxide (22-30) mmol/L Anion Gap mmol/L BUN (9-20) mg/dL Creatinine (0.66-1.25) mg/dL Est GFR (CKD-EPI)AfAm (>60 ml/min/1.73 sqM) Est GFR (CKD-EPI)NonAf (>60 ml/min/1.73 sqM) Glucose (74-99) mg/dL Plasma Lactic Acid Yonny (0.7-2.0) mmol/L Calcium (8.4-10.2) mg/dL Magnesium 1.9 (1.6-2.3) mg/dL Total Bilirubin (0.2-1.3) mg/dL AST (17-59) U/L ALT (21-72) U/L Alkaline Phosphatase (38-126) U/L Total Protein (6.3-8.2) g/dL Albumin (3.5-5.0) g/dL Lipase (23-300) U/L Stool Occult Blood Negative (Negative) - EKG Data -: EKG Interpreted by Me (and Dr. Mcintyre) EKG Comments: Ventricular rate 73, patient fell 160, QRS 116, QT/QTc 442/46. Normal sensory and sinus arrhythmia. F anterior vesicular block. Septal infarct, age undetermined. No significant change from prior EKG. No concern for acute ischemia at this time. Disposition Clinical Impression: Abdominal pain Disposition: HOME SELF-CARE Condition: Stable Instructions (If sedation given, give patient instructions): Abdominal Pain (ED) Additional Instructions: Patient to adhere to previously discussed treatment plan and will take medication(s) as directed. Patient to follow up with PCP in 1-2 days. Patient to return to ED if symptoms do not improve. Follow-up with primary care provider in 1-2 days as [address] as Dr[address] Menjivar. Return to ER if condition worsens in anyway. Is patient prescribed a controlled substance at d/c from ED?: No Referrals: Jazmin Castaneda MD [Primary Care Provider] - 1-2 days
[2018-12-20 18:56] LABS: Albumin 3.9 g/dL (3.5-5.0); Calcium 9.8 mg/dL (8.4-10.2); Potassium 4.2 mmol/L (3.5-5.1); Total Bilirubin 0.8 mg/dL (0.2-1.3); Total Protein 5.9 g/dL (6.3-8.2)
[2018-12-20 19:03] LABS: Anisocytosis Slight; Basophils % (A) 0 %; Eosinophils # (A) 0.2 k/uL (0-0.7); Eosinophils % (A) 4 %; HCT 26.9 % (39.0-53.0); HGB 8.4 gm/dL (13.0-17.5); Hypochromasia Marked; Lymphocytes % (A) 25 %; MCHC 31.2 g/dL (31.0-37.0); MCV 67.3 fL (80.0-100.0); Mean Platelet Volume 7.1; Microcytosis Marked; Monocytes # (A) 0.3 k/uL (0-1.0); Monocytes % (A) 7 %; Neutrophils # (A) 2.5 k/uL (1.3-7.7); Neutrophils % (A) 59 %; Platelet Count 118 k/uL (150-450); Poikilocytosis Moderate; RDW 19.8 % (11.5-15.5); WBC 4.1 k/uL (3.8-10.6)
--- NOTE | 2018-12-20 19:07 | CT ---
EXAMINATION TYPE: CT abdomen pelvis wo con DATE OF EXAM: 12/20/2018 COMPARISON: 10/30/2018 HISTORY: LLQ pain CT DLP: 1190 mGycm Automated exposure control for dose reduction was used. TECHNIQUE: Helical acquisition of images was performed from the lung bases through the pelvis. FINDINGS: There is some linear density at the left posterior lung base. There is slight elevated left diaphragm . There is no pleural effusion. Stomach appears normal. Spleen is enlarged and measures 17 cm.. There is no sign of pancreatic mass. Liver shows no focal defect. Bile ducts are not dilated. There are small calcified gallstones. There is no adrenal mass. There are bilateral renal cortical cysts. The largest measures 6 cm on the posterior left kidney. There is renal cortical atrophy. There is no hydronephrosis. There is some thu al vascular calcification. There is atherosclerotic calcification in the abdominal aorta. There is no retroperitoneal adenopathy. Bladder distends smoothly. There is right hip prosthesis. There is no inguinal hernia. There is no fr ee fluid in the pelvis. The appendix appears normal. There is no mesenteric edema. There is no ascite s or free air. There is no sign of a bowel obstruction. There is L5 spondylolysis with mild first-degree L5-S1 spondylolisthesis. There are large Schmorl nod es of the L3 vertebral body. This is also seen at L1. The bony pelvis is intact. IMPRESSION: RENAL ATROPHY. ATHEROSCLEROTIC VASCULAR DISEASE. SPLENOMEGALY. MILD ATELECTASIS AT THE LEFT LUNG BASE. ATELECTASIS INCREASED COMPARED TO OLD EXAM. No acute abnormality within the abdomen and pelvis.
--- NOTE | 2018-12-20 20:00 | XR ---
EXAMINATION TYPE: XR chest 2V DATE OF EXAM: 12/20/2018 COMPARISON: 11/29/2018 HISTORY: Abdominal pain. Heart failure. TECHNIQUE: Frontal and lateral views of the chest are obtained. FINDINGS: There is mild coarsening of interstitial markings. There is no pleural effusion. Heart siz e is normal. Thoracic aorta is atheromatous. There are chest leads. IMPRESSION: Slight increased lung markings. No heart failure seen. There is improved aeration of the lungs and clearing of interstitial mild edema compared to last exam.
[2018-12-20] MEDS ORDERED: MORPHINE SULFATE 4 MG/ML SYRINGE IV STA (21:16)
[2018-12-20 21:41] VITALS: BP 119/64; PULSE 75; TEMP 98
== END 2018-12-20 21:41 | disposition home or self-care (01) ==
LOC: EC 16:24
DX: R10.32 Left lower quadrant pain (principal); R42 Dizziness and giddiness; I13.2 Hypertensive heart and chronic kidney disease with heart failure and with stage 5 chronic kidney disease, or end stage renal disease; E11.22 Type 2 diabetes mellitus with diabetic chronic kidney disease; N18.6 End stage renal disease; I50.9 Heart failure, unspecified; R16.1 Splenomegaly, not elsewhere classified; J98.11 Atelectasis; E78.5 Hyperlipidemia, unspecified; E11.40 Type 2 diabetes mellitus with diabetic neuropathy, unspecified; E11.319 Type 2 diabetes mellitus with unspecified diabetic retinopathy without macular edema; E11.621 Type 2 diabetes mellitus with foot ulcer; Z79.82 Long term (current) use of aspirin; Z79.4 Long term (current) use of insulin; Z79.899 Other long term (current) drug therapy; Z95.5 Presence of coronary angioplasty implant and graft; Z99.2 Dependence on renal dialysis; Z87.891 Personal history of nicotine dependence
CPT/HCPCS: 36415; 80053; 83605; 83690; 83735; 85025; 82272; 71046; 74176; 99285; 96374; 96376; 96361 ×3; J2270 ×2

== ENCOUNTER 2019-01-10 14:47 | Inpatient (IN) | payer MEDICARE, BC ==
--- NOTE | 2019-01-10 16:09 | ED ---
General Adult HPI - General Chief complaint: Shortness of Breath Stated complaint: Chest Pain, Dizziness, SOB Time Seen by Provider: 01/10/19 15:51 Source: patient, RN notes reviewed, old records reviewed Mode of arrival: wheelchair Limitations: no limitations - History of Present Illness Initial comments: 63-year-old male history of end-stage renal disease presents for evaluation of dyspnea. Dyspnea has progressed over the past 2 weeks. He does report poor bilateral lower extremity swelling. He does endorse orthopnea. He states that he had hemodialysis today and he had not 1.7 L taken off. He states this did not significantly improve his dyspnea. Denies chest pain but states he has some central chest pressure. No history of coronary artery disease. Denies cough. Denies fever or chills. Denies nausea vomiting. - Related Data Home Medications Medication Instructions Recorded Confirmed Aspirin [Adult Low Dose Aspirin EC] 81 mg PO DAILY 10/23/16 01/10/19 Atorvastatin [Lipitor] 10 mg PO HS 10/23/16 01/10/19 Ergocalciferol (Vitamin D2) 50,000 unit PO Q14D 10/23/16 01/10/19 [Vitamin D2] hydrALAZINE HCL 50 mg PO DAILY 10/23/16 01/10/19 Pyridoxine [Vitamin B-6] 100 mg PO DAILY 08/29/17 01/10/19 diphenhydrAMINE [Benadryl] 25 mg PO DAILY 08/29/17 01/10/19 Folic Acid 0.8 mg PO DAILY 12/07/17 01/10/19 Metoprolol Succinate (ER) [Toprol 50 mg PO DAILY 05/08/18 01/10/19 XL] Calcium Acetate [PhosLo] 2,668 mg PO AC-TID 09/12/18 01/10/19 Cyanocobalamin [Vitamin B-12] 500 mcg PO DAILY 09/12/18 01/10/19 Furosemide [Lasix] 80 mg PO DAILY 09/12/18 01/10/19 Levothyroxine Sodium [Synthroid] 300 mcg PO DAILY 10/25/18 01/10/19 INSULIN ASPART (NovoLOG) [NovoLOG 9 units SQ AC-BRKFST 10/30/18 01/10/19 (formulary)] INSULIN ASPART (NovoLOG) [NovoLOG 12 unit SQ AC-LUNCH 10/30/18 01/10/19 (formulary)] INSULIN ASPART (NovoLOG) [NovoLOG 12 unit SQ AC-SUPPER 10/30/18 01/10/19 (formulary)] Insulin NPH Human Isophane 16 unit SQ HS 10/30/18 01/10/19 [NovoLIN N] Dicyclomine [Bentyl] 20 mg PO QID 12/10/18 01/10/19 Polyethylene Glycol 3350 [Miralax] 17 gm PO DAILY 12/10/18 01/10/19 Omeprazole 20 mg PO BID 01/10/19 01/10/19 Allergies Allergy/AdvReac Type Severity Reaction Status Date / Time No Known Allergies Allergy Verified 01/10/19 16:23 Review of Systems ROS Statement: Those systems with pertinent positive or pertinent negative responses have been documented in the HPI. ROS Other: All systems not noted in ROS Statement are negative. Past Medical History Past Medical History: Heart Failure, Diabetes Mellitus, Dialysis, Hyperlipidemia, Hypertension, Renal Disease Additional Past Medical History / Comment(s): 50 ounces fluid restrictions per day.ESRD with hemodailysis MWF- abdominal pain/nausea, hyperkalemia, chronic anemia, IDDM type II, neuropathy bilateral feet, bilateral eye retinopathy and leaking vessel behind R eye and recently told also now behind L eye, past R great toe diabetic ulcer which was healed thru [facility] History of Any Multi-Drug Resistant Organisms: None Reported Past Surgical History: Heart Catheterization With Stent, Joint Replacement, Orthopedic Surgery Additional Past Surgical History / Comment(s): PCI with stent in 2008, L arm graft for dialysis, R eye injections/laser surgery, R knee plate with screws, R total hip, 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 Past Anesthesia/Blood Transfusion Reactions: No Reported Reaction Additional Past Anesthesia/Blood Transfusion Reaction / Comment(s): Pt states he has woken during surgeries in the past. Date of Last Stent Placement:: 2008 Past Psychological History: No Psychological Hx Reported Smoking Status: Former smoker Past Alcohol Use History: None Reported Past Drug Use History: None Reported - Past Family History Mother Family Medical History: Congestive Heart Failure (CHF) Additional Family Medical History / Comment(s): Mother lived to be 89 yrs old. Father Family Medical History: Congestive Heart Failure (CHF) Additional Family Medical History / Comment(s): Father lived to be 93 yrs old. Brother(s) Family Medical History: Congestive Heart Failure (CHF) Additional Family Medical History / Comment(s): Brother at the age of 67yrs. General Exam Limitations: no limitations General appearance: alert, in no apparent distress Head exam: Present: atraumatic, normocephalic Eye exam: Present: normal appearance, PERRL ENT exam: Present: normal exam Neck exam: Present: normal inspection. Absent: tenderness, meningismus Respiratory exam: Present: rales, decreased breath sounds. Absent: respiratory distress Cardiovascular Exam: Present: regular rate, normal rhythm GI/Abdominal exam: Present: soft. Absent: distended, tenderness, guarding Extremities exam: Present: pedal edema Neurological exam: Present: alert, oriented X3, CN II-XII intact. Absent: motor sensory deficit Psychiatric exam: Present: normal affect, normal mood Skin exam: Present: warm, dry, intact. Absent: cyanosis, diaphoretic Course Vital Signs 01/10/19 01/10/19 01/10/19 15:24 15:40 16:53 Temperature 98.1 F 98.1 F Pulse Rate 81 78 77 Respiratory 20 20 16 Rate Blood Pressure 133/72 140/77 146/78 O2 Sat by Pulse 97 89 L 100 Oximetry EKG Findings - EKG Comments: EKG Findings:: EKG: Normal sinus rhythm, incomplete left bundle rate of 78, MT interval 168, QRS duration 116, QTC 497, no ST segment elevation similar compared to previous EKG obtained 12/20/2018. Medical Decision Making - Medical Decision Making 63-year-old male with end-stage renal disease presenting with dyspnea. Patient does appear fluid overloaded. He has diminished breath sounds bilaterally. He is hypoxic requiring supplemental oxygen. X-ray shows pulmonary vascular congestion and lateral effusions. There is concern for infiltrate however patient has normal white blood cell count, no cough, no fever doubt pneumonia at this time. He is down trending hemoglobin is 7.9. He has an elevated BNP 42,600. His potassium is normal. He will be admitted with nephrology on consult. Case is discussed with Dr. Bernal - Lab Data Result diagrams: 01/10/19 16:00 01/10/19 16:00 Lab Results 01/10/19 01/10/1901/10/19 Range/Units 16:00 16:00 16:00 WBC 4.0 (3.8-10.6) k/uL RBC 3.88 L (4.30-5.90) m/uL Hgb 7.9 L (13.0-17.5) gm/dL Hct 26.4 L (39.0-53.0) % MCV 68.0 L (80.0-100.0) fL MCH 20.5 L (25.0-35.0) pg MCHC 30.1 L (31.0-37.0) g/dL RDW 20.1 H (11.5-15.5) % Plt Count 113 L (150-450) k/uL Neutrophils % (Manual) 59 % Band Neutrophils % 1 % Lymphocytes % (Manual) 31 % Monocytes % (Manual) 5 % Eosinophils % (Manual) 4 % Neutrophils # (Manual) 2.40 (1.3-7.7) k/uL Lymphocytes # (Manual) 1.24 (1.0-4.8) k/uL Monocytes # (Manual) 0.20 (0-1.0) k/uL Eosinophils # (Manual) 0.16 (0-0.7) k/uL Nucleated RBCs 0 (0-0) /100 WBC Manual Slide Review Performed Polychromasia Present Hypochromasia Moderate Poikilocytosis Moderate Poikilocytosis (manual Present Anisocytosis Moderate Microcytosis Marked Target Cells Present Tear Drop Cells Present Ovalocytes Present PT (9.0-12.0) sec INR (<1.2) APTT (22.0-30.0) sec Sodium 136 L (137-145) mmol/L Potassium 4.3 (3.5-5.1) mmol/L Chloride 94 L (98-107) mmol/L Carbon Dioxide 33 H (22-30) mmol/L Anion Gap 9 mmol/L BUN 20 (9-20) mg/dL Creatinine 4.19 H (0.66-1.25) mg/dL Est GFR (CKD-EPI)AfAm 16 (>60 ml/min/1.73 sqM) Est GFR (CKD-EPI)NonAf 14 (>60 ml/min/1.73 sqM) Glucose 296 H (74-99) mg/dL Calcium 9.1 (8.4-10.2) mg/dL Magnesium 1.7 (1.6-2.3) mg/dL Total Bilirubin 0.8 (0.2-1.3) mg/dL AST 26 (17-59) U/L ALT 21 (21-72) U/L Alkaline Phosphatase 119 (38-126) U/L Troponin I (0.000-0.034) ng/mL NT-Pro-B Natriuret Pep 26318 pg/mL Total Protein 5.8 L (6.3-8.2) g/dL Albumin 3.8 (3.5-5.0) g/dL 01/10/19 01/10/19 Range/Units 16:00 16:00 WBC (3.8-10.6) k/uL RBC (4.30-5.90) m/uL Hgb (13.0-17.5) gm/dL Hct (39.0-53.0) % MCV (80.0-100.0) fL MCH (25.0-35.0) pg MCHC (31.0-37.0) g/dL RDW (11.5-15.5) % Plt Count (150-450) k/uL Neutrophils % (Manual) % Band Neutrophils % % Lymphocytes % (Manual) % Monocytes % (Manual) % Eosinophils % (Manual) % Neutrophils # (Manual) (1.3-7.7) k/uL Lymphocytes # (Manual) (1.0-4.8) k/uL Monocytes # (Manual) (0-1.0) k/uL Eosinophils # (Manual) (0-0.7) k/uL Nucleated RBCs (0-0) /100 WBC Manual Slide Review Polychromasia Hypochromasia Poikilocytosis Poikilocytosis (manual Anisocytosis Microcytosis Target Cells Tear Drop Cells Ovalocytes PT 11.0 (9.0-12.0) sec INR 1.0 (<1.2) APTT 24.9 (22.0-30.0) sec Sodium (137-145) mmol/L Potassium (3.5-5.1) mmol/L Chloride (98-107) mmol/L Carbon Dioxide (22-30) mmol/L Anion Gap mmol/L BUN (9-20) mg/dL Creatinine (0.66-1.25) mg/dL Est GFR (CKD-EPI)AfAm (>60 ml/min/1.73 sqM) Est GFR (CKD-EPI)NonAf (>60 ml/min/1.73 sqM) Glucose (74-99) mg/dL Calcium (8.4-10.2) mg/dL Magnesium (1.6-2.3) mg/dL Total Bilirubin (0.2-1.3) mg/dL AST (17-59) U/L ALT (21-72) U/L Alkaline Phosphatase (38-126) U/L Troponin I 0.029 (0.000-0.034) ng/mL NT-Pro-B Natriuret Pep pg/mL Total Protein (6.3-8.2) g/dL Albumin (3.5-5.0) g/dL Disposition Clinical Impression: Fluid overload, End stage renal disease Disposition: ADMITTED IP TO THIS [facility] Condition: Stable Is patient prescribed a controlled substance at d/c from ED?: No Referrals: Jazmin Castaneda MD [Primary Care Provider] - 1-2 days Decision to Admit Reason: Admit from EC Decision Date: 01/10/19 Decision Time: 17:57
[2019-01-10 16:13] LABS: Partial Thromboplastin Time 24.9 sec (22.0-30.0)
--- NOTE | 2019-01-10 16:24 | XR ---
EXAMINATION TYPE: XR chest 2V DATE OF EXAM: 01/10/2019 COMPARISON: 12/20/2018 HISTORY: Shortness of breath TECHNIQUE: Frontal and lateral views of the chest are obtained. FINDINGS: Scattered senescent parenchymal changes noted. Hyperinflation compatible with COPD. There are small bilateral pleural effusions. Mild patchy density right infrahilar region may reflect developing infiltrate. Correlate clinically and progress studies are recommended. Heart size is stable. Mediastinal structures are stable and grossly unremarkable. No evidence for hilar prominence. Degenerative changes dorsal spine. IMPRESSION: 1. There are small bilateral pleural effusions. Mild patchy density right infrahilar region may refle ct developing infiltrate. Correlate clinically and progress studies are recommended.
[2019-01-10 16:27] LABS: Albumin 3.8 g/dL (3.5-5.0); Anisocytosis Moderate; Calcium 9.1 mg/dL (8.4-10.2); HCT 26.4 % (39.0-53.0); HGB 7.9 gm/dL (13.0-17.5); Hypochromasia Moderate; MCH 20.5 pg (25.0-35.0); MCHC 30.1 g/dL (31.0-37.0); Magnesium 1.7 mg/dL (1.6-2.3); Mean Platelet Volume 6.7; Microcytosis Marked; Platelet Count 113 k/uL (150-450); Poikilocytosis Moderate; Potassium 4.3 mmol/L (3.5-5.1); RBC 3.88 m/uL (4.30-5.90); RDW 20.1 % (11.5-15.5); Total Bilirubin 0.8 mg/dL (0.2-1.3); Total Protein 5.8 g/dL (6.3-8.2)
[2019-01-10 17:11] LABS: Band Neutrophils % 1 %; Eosinophils # (M) 0.16 k/uL (0-0.7); Lymphocytes # (M) 1.24 k/uL (1.0-4.8); Neutrophils % (M) 59 %; Nucleated Red Blood Cells 0 /100 WBC (0-0); Ovalocytes Present; Poikilocytosis (M) Present; Polychromasia Present; Target Cells Present; Tear Drop Cells Present; Total Cells Counted 100
[2019-01-10] MEDS ORDERED: MORPHINE SULFATE 4 MG/ML SYRINGE IVP STA (17:37)
[2019-01-10] MEDS ORDERED: NALOXONE 0.4 MG/ML 1 ML VIAL IV PRN (17:51)
[2019-01-10 20:27] LABS: Glucose,Whole Blood 270 mg/dL (75-99)
[2019-01-10 21:28] LABS: Glucose,Whole Blood 304 mg/dL (75-99)
[2019-01-10 21:35] VITALS: BMI 40.7
[2019-01-10] MEDS: DICYCLOMINE 20 MG TAB PO SCH (23:36)
[2019-01-10] MEDS: ATORVASTATIN 10 MG TAB PO SCH (23:36)
[2019-01-10] MEDS: INSULIN NPH 300 UNIT/3 ML VIAL SQ SCH (23:47)
[2019-01-11] MEDS: MORPHINE SULFATE 4 MG/ML SYRINGE IV PRN ×3 (03:50→19:12)
[2019-01-11] MEDS: CYANOCOBALAMIN 500 MCG TAB PO SCH (06:23)
[2019-01-11] MEDS: CALCIUM ACETATE 667 MG CAP PO SCH ×3 (06:24→17:24)
[2019-01-11] MEDS: LEVOTHYROXINE 100 MCG TAB PO SCH (06:24)
[2019-01-11 06:28] LABS: Glucose,Whole Blood 155 mg/dL (75-99)
[2019-01-11 07:15] LABS: Calcium 9.2 mg/dL (8.4-10.2); Potassium 4.5 mmol/L (3.5-5.1)
[2019-01-11] MEDS ORDERED: INSULIN ASPART (NovoLOG) 100 UNIT/ML VIAL SQ SCH (07:30)
[2019-01-11 07:34] LABS: Glucose,Whole Blood 123 mg/dL (75-99)
[2019-01-11 07:35] LABS: Anisocytosis Moderate; Basophils % (A) 1 %; Eosinophils # (A) 0.4 k/uL (0-0.7); Eosinophils % (A) 8 %; HCT 25.8 % (39.0-53.0); HGB 7.8 gm/dL (13.0-17.5); Hypochromasia Marked; Lymphocytes # (A) 1.2 k/uL (1.0-4.8); Lymphocytes % (A) 26 %; MCH 20.8 pg (25.0-35.0); MCHC 30.2 g/dL (31.0-37.0); MCV 68.9 fL (80.0-100.0); Mean Platelet Volume 7.3; Microcytosis Marked; Monocytes # (A) 0.3 k/uL (0-1.0); Monocytes % (A) 7 %; Neutrophils # (A) 2.4 k/uL (1.3-7.7); Neutrophils % (A) 53 %; Platelet Count 126 k/uL (150-450); Poikilocytosis Slight; RBC 3.74 m/uL (4.30-5.90); RDW 20.1 % (11.5-15.5); WBC 4.4 k/uL (3.8-10.6)
[2019-01-11 08:59] LABS: Glucose,Whole Blood 56 mg/dL (75-99)
[2019-01-11 09:10] LABS: Glucose,Whole Blood 134 mg/dL (75-99)
[2019-01-11] MEDS: diphenhydrAMINE 25 MG CAP PO SCH (09:16)
[2019-01-11] MEDS: DICYCLOMINE 20 MG TAB PO SCH ×4 (09:16→20:16)
[2019-01-11 09:22] LABS: Glucose,Whole Blood 67 mg/dL (75-99)
--- NOTE | 2019-01-11 09:27 | P.NPCON ---
History of Present Illness - Reason for Consult end stage renal disease - Chief Complaint Shortness of breath - History of Present Illness ESRD patient of Dr. Dougherty, [facility] coming to the hospital with worsening shortness of breath. He did not miss dialysis treatment, had 1.7 L of ultrafiltration yesterday. After dialysis he was having worsening shortness of breath came to the ER. Chest x-ray showed pulmonary congestion. Nephrology was contacted for dialysis management. No nausea vomiting diarrhea. No chest pain. Review of Systems Constitutional: Reports as per HPI Past Medical History Past Medical History: Heart Failure, Diabetes Mellitus, Dialysis, Hyperlipidemia, Hypertension, Renal Disease Additional Past Medical History / Comment(s): 50 ounces fluid restrictions per day.ESRD with hemodailysis MWF- abdominal pain/nausea, hyperkalemia, chronic anemia, IDDM type II, neuropathy bilateral feet, bilateral eye retinopathy and leaking vessel behind R eye and recently told also now behind L eye, past R great toe diabetic ulcer which was healed thru 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 Past Anesthesia/Blood Transfusion Reactions: No Reported Reaction Additional Past Anesthesia/Blood Transfusion Reaction / Comment(s): Pt states he has woken during surgeries in the past. Date of Last Stent Placement:: 2008 Past Psychological History: No Psychological Hx Reported Additional Psychological History / Comment(s): . Lives with his and 2 dogs. Pt uses cane to ambulate. He drives. Smoking Status: Former smoker Past Alcohol Use History: None Reported Additional Past Alcohol Use History / Comment(s): Pt started smoking as a teen and quit in 1989 Past Drug Use History: None Reported - Past Family History Mother Family Medical History: Congestive Heart Failure (CHF) Additional Family Medical History / Comment(s): Mother lived to be 89 yrs old. Father Family Medical History: Congestive Heart Failure (CHF) Additional Family Medical History / Comment(s): Father lived to be 93 yrs old. Brother(s) Family Medical History: Congestive Heart Failure (CHF) Additional Family Medical History / Comment(s): Brother at the age of 67yrs. Medications and Allergies Home Medications Medication Instructions Recorded Confirmed Type Aspirin [Adult Low Dose Aspirin EC] 81 mg PO DAILY 10/23/16 01/10/19 History Atorvastatin [Lipitor] 10 mg PO HS 10/23/16 01/10/19 History Ergocalciferol (Vitamin D2) 50,000 unit PO Q14D 10/23/16 01/10/19 History [Vitamin D2] hydrALAZINE HCL 50 mg PO DAILY 10/23/16 01/10/19 History Pyridoxine [Vitamin B-6] 100 mg PO DAILY 08/29/17 01/10/19 History diphenhydrAMINE [Benadryl] 25 mg PO DAILY 08/29/17 01/10/19 History Folic Acid 0.8 mg PO DAILY 12/07/17 01/10/19 History Metoprolol Succinate (ER) [Toprol 50 mg PO DAILY 05/08/18 01/10/19 History XL] Calcium Acetate [PhosLo] 2,668 mg PO AC-TID 09/12/18 01/10/19 History Cyanocobalamin [Vitamin B-12] 500 mcg PO DAILY 09/12/18 01/10/19 History Furosemide [Lasix] 80 mg PO DAILY 09/12/18 01/10/19 History Levothyroxine Sodium [Synthroid] 300 mcg PO DAILY 10/25/18 01/10/19 History INSULIN ASPART (NovoLOG) [NovoLOG 9 units SQ AC-BRKFST 10/30/18 01/10/19 History (formulary)] INSULIN ASPART (NovoLOG) [NovoLOG 12 unit SQ AC-LUNCH 10/30/18 01/10/19 History (formulary)] INSULIN ASPART (NovoLOG) [NovoLOG 12 unit SQ AC-SUPPER 10/30/18 01/10/19 History (formulary)] Insulin NPH Human Isophane 16 unit SQ HS 10/30/18 01/10/19 History [NovoLIN N] Dicyclomine [Bentyl] 20 mg PO QID 12/10/18 01/10/19 History Polyethylene Glycol 3350 [Miralax] 17 gm PO DAILY 12/10/18 01/10/19 History Omeprazole 20 mg PO BID 01/10/19 01/10/19 History Allergies Allergy/AdvReac Type Severity Reaction Status Date / Time No Known Allergies Allergy Verified 01/10/19 16:23 Physical Exam Vitals: Vital Signs Temp Pulse Pulse Resp BP BP Pulse Ox 01/11/19 04:00 97.1 F L 75 18 145/74 98 01/11/19 00:00 98.7 F 70 16 137/75 98 01/10/19 20:53 97.9 F 75 18 145/72 99 01/10/19 20:43 98.9 F 86 17 145/84 97 01/10/19 19:37 98 F 73 17 145/79 99 01/10/19 16:53 98.1 F 77 16 146/78 100 01/10/19 15:40 78 20 140/77 89 L 01/10/19 15:24 98.1 F 81 20 133/72 97 Intake and Output 01/10/19 01/11/19 01/11/19 22:59 06:59 14:59 Intake Total 480 500 Balance 480 500 Intake: IV 20 Invasive Line 1 20 Oral 480 480 Other: Voiding Method Toilet # Voids 2 Weight 120.202 kg 117.9 kg No acute distress S1-S2 heard Decreased breath sounds Left upper arm AVG, edema Results - Lab Results Most recent lab results Calcium 9.2 mg/dL (8.4-10.2) 01/11/19 06:17 Magnesium 1.7 mg/dL (1.6-2.3) 01/10/19 16:00 01/11/19 06:17 01/11/19 06:17 Assessment and Plan Assessment: #1 shortness of breath secondary to volume overload. #2 ESRD, MWF, left upper arm AVG #3 anemia with ESRD #4 hypertension with ESRD #5 metabolic bone disease with ESRD Plan: #1 hemodialysis today. Plan 3 L of ultrafiltration. #2 ESRD medications #3 after dialysis if clinically stable can be discharged to be followed up in the dialysis unit on Sunday.
[2019-01-11 09:39] LABS: Glucose,Whole Blood 77 mg/dL (75-99)
[2019-01-11 10:13] LABS: Glucose,Whole Blood 92 mg/dL (75-99)
[2019-01-11 12:13] LABS: Glucose,Whole Blood 100 mg/dL (75-99)
--- NOTE | 2019-01-11 12:50 | CONS ---
CONSULTATION DATE OF SERVICE: 01/11/2019 REASON FOR CONSULTATION: Abdominal pain. HISTORY OF PRESENT ILLNESS: The patient is a 63-year-old pleasant white male, known to Dr. Menjivar from previous office visits and hospitalizations. The patient has history of end-stage renal disease on hemodialysis for the last 8 years. He has been complaining of chronic epigastric pain for the last 6 months duration. The pain is mostly in the epigastric area radiating to the right upper quadrant area, worse with eating and worse with dialysis. Yesterday he presented to the hospital with worsening dyspnea/shortness of breath. We are consulted in regards to the epigastric pain. He was seen by Dr. Menjivar in the office. He had an upper endoscopy as well as colonoscopy done in November of 2018 that showed moderate duodenitis and sigmoid diverticulosis. He was started on dicyclomine 10 mg 3 times daily as an outpatient as well as omeprazole. His symptoms are gradually improving. As a part of workup, he also had ultrasound as well as CT scan of the abdomen done that showed thickening of the gallbladder wall, but no evidence of gallstones. PAST MEDICAL HISTORY: Significant for end-stage renal disease, on hemodialysis, history of hypertension, hypercholesteremia, morbid obesity, diabetes mellitus, congestive heart failure. MEDICATIONS: At home include aspirin, Lipitor, vitamin D3, vitamin B6, Bentyl, folic acid, Synthroid, NovoLog, Bentyl, MiraLAX, omeprazole, PhosLo, vitamin B12, and Toprol. PAST SURGICAL HISTORY: Diabetic retinopathy, cardiac cath with stent placement, right knee surgery, right total hip surgery, left AV graft. FAMILY HISTORY: Mother, congestive heart failure. Father, congestive heart failure. SOCIAL HISTORY: No smoking. No alcohol use. REVIEW OF SYSTEMS: Cardiopulmonary: Complains of shortness of breath, but no chest pain. Genitourinary: No dysuria or hematuria. Musculoskeletal unremarkable. Skin unremarkable. Endocrine unremarkable. Psychiatric unremarkable. Neurology unremarkable. ENT vision unremarkable. GI as mentioned above. CONSTITUTIONAL: No recent weight loss. No fever, chills, night sweats. PHYSICAL EXAMINATION: He appears comfortable. No apparent distress. Vital signs is stable. Blood pressure is 125/72, pulse rate 75, temperature 97.9. HEENT examination unremarkable. Conjunctivae pink. Sclerae anicteric. Oral cavity no lesions. NECK: No JVD or lymph node enlargement. CHEST: Clear to auscultation. HEART: Regular rate and rhythm. ABDOMEN: Soft, it was slightly tender in the epigastric area. He was obese. Bowel sounds are positive. No organomegaly. EXTREMITIES: 2+ pedal edema. SKIN no rashes. NEUROLOGIC: Alert and oriented x3. No focal deficits. LABS: From yesterday WBC 4, hemoglobin 7.9, platelets 112. Today hemoglobin 7.8, WBC 4, platelets 126, MCV 68.9. Basic metabolic panel, BUN 20, creatinine 4.19. ALT, AST, T- bilirubin, alkaline phosphatase are normal. Amylase and lipase normal. IMPRESSION: 1. Chronic epigastric pain of 6 months duration. He is being investigated by Dr. Menjivar on an outpatient basis. Recently had an EGD and colonoscopy last night that showed moderate duodenitis and diverticulosis. He also had ultrasound of the gallbladder that showed thickening of the gallbladder wall with no gallstones. CT of the abdomen and pelvis done on an outpatient basis were unremarkable. He continues to have persistent epigastric pain for which he was being treated with omeprazole 20 mg daily as well as dicyclomine 10 mg 3 times daily and he feels his symptoms are gradually improving. 2. End-stage renal disease on hemodialysis. 3. Shortness of breath, probably from fluid overload. RECOMMENDATION: 1. Continue with omeprazole 20 mg daily. 2. Continue with dicyclomine 10 mg 3 times daily. 3. Surgical consultation for possible chronic cholecystitis. Thank you for this consultation. We will follow him closely during his hospital stay. MMODL / IJN: [id number] /
[2019-01-11 14:04] LABS: Hemoglobin A1C 7.7 % (4.0-6.0)
[2019-01-11] MEDS: FOLIC ACID 1 MG TAB PO SCH (16:16)
[2019-01-11] MEDS: hydrALAZINE HCL 50 MG TAB PO SCH (16:16)
[2019-01-11] MEDS: FUROSEMIDE 80 MG TAB PO SCH (16:16)
[2019-01-11] MEDS: INSULIN ASPART (NovoLOG) 100 UNIT/ML VIAL SQ SCH ×2 (16:17→17:56)
[2019-01-11] MEDS: METOPROLOL SUCCINATE (ER) 50 MG TAB.ER.24H PO SCH (16:17)
[2019-01-11] MEDS: PANTOPRAZOLE 40 MG TABLET PO SCH ×2 (16:17→20:16)
[2019-01-11] MEDS: PYRIDOXINE 50 MG TAB PO SCH (16:17)
[2019-01-11] MEDS: ASPIRIN 81 MG PO SCH (16:17)
[2019-01-11] MEDS: POLYETHYLENE GLYCOL 3350 17 GM POWD.PACK PO SCH (16:17)
[2019-01-11 16:53] LABS: Glucose,Whole Blood 166 mg/dL (75-99)
--- NOTE | 2019-01-11 18:25 | P.HPIM ---
History of Present Illness H&P Date: 01/11/19 Quoc Tompkins is a 63-year-old male, with known history of end-stage renal disease on hemodialysis who presented to [facility] emergency room with a chief complaint of worsening shortness of breath and evidence of pulmonary congestion on chest x-ray and elevated BNP patient was admitted to medical floor and nephrology consultation was requested for further hemodialysis treatment. Patt mcdermott had hemodialysis on the day prior to admission. Patient has a known history of end-stage renal disease for the last 8 years initially he was started on peritoneal dialysis for a few months however he had an episode of severe peritonitis and had to be switched to hemodialysis he has been on hemodialysis for more than 7 years. Patient stated that for the last few weeks he has been having episodes of abdominal pain he had a computed tomography scan of the abdomen and pelvis in the beginning of shortness and an ultrasound of the gallbladder few days ago. He has evidence of splenomegaly and gallbladder wall thickening and evidence of gallbladder sludge. Past Medical History Past Medical History: Heart Failure, Diabetes Mellitus, Dialysis, Hyperl ipidemia, Hypertension, Renal Disease Additional Past Medical History / Comment(s): 50 ounces fluid restrictions per day.ESRD with hemodailysis MWF- abdominal pain/nausea, hyperkalemia, chronic anemia, IDDM type II, neuropathy bilateral feet, bilateral eye retinopathy and leaking vessel behind R eye and recently told also now behind L eye, past R great toe diabetic ulcer which was healed thru [facility] History of Any Multi-Drug Resistant Organisms: None Reported Past Surgical History: Heart Catheterization With Stent, Joint Replacement, Orthopedic Surgery Additional Past Surgical History / Comment(s): PCI with stent in 2008, L arm graft for dialysis, R eye injections/laser surgery, R knee plate with screws, R total hip, 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 Past Anesthesia/Blood Transfusion Reactions: No Reported Reaction Additional Past Anesthesia/Blood Transfusion Reaction / Comment(s): Pt states he has woken during surgeries in the past. Date of Last Stent Placement:: 2008 Past Psychological History: No Psychological Hx Reported Additional Psychological History / Comment(s): . Lives with his and 2 dogs. Pt uses cane to ambulate. He drives. Smoking Status: Former smoker Past Alcohol Use History: None Reported Additional Past Alcohol Use History / Comment(s): Pt started smoking as a teen and quit in 1989 Past Drug Use History: None Reported - Past Family History Mother Family Medical History: Congestive Heart Failure (CHF) Additional Family Medical History / Comment(s): Mother lived to be 89 yrs old. Father Family Medical History: Congestive Heart Failure (CHF) Additional Family Medical History / Comment(s): Father lived to be 93 yrs old. Brother(s) Family Medical History: Congestive Heart Failure (CHF) Additional Family Medical History / Comment(s): Brother at the age of 67yrs. Medications and Allergies Home Medications Medication Instructions Recorded Confirmed Type Aspirin [Adult Low Dose Aspirin EC] 81 mg PO DAILY 10/23/16 01/10/19 History Atorvastatin [Lipitor] 10 mg PO HS 10/23/16 01/10/19 History Ergocalciferol (Vitamin D2) 50,000 unit PO Q14D 10/23/16 01/10/19 History [Vitamin D2] hydrALAZINE HCL 50 mg PO DAILY 10/23/16 01/10/19 History Pyridoxine [Vitamin B-6] 100 mg PO DAILY 08/29/17 01/10/19 History diphenhydrAMINE [Benadryl] 25 mg PO DAILY 08/29/17 01/10/19 History Folic Acid 0.8 mg PO DAILY 12/07/17 01/10/19 History Metoprolol Succinate (ER) [Toprol 50 mg PO DAILY 05/08/18 01/10/19 History XL] Calcium Acetate [PhosLo] 2,668 mg PO AC-TID 09/12/18 01/10/19 History Cyanocobalamin [Vitamin B-12] 500 mcg PO DAILY 09/12/18 01/10/19 History Furosemide [Lasix] 80 mg PO DAILY 09/12/18 01/10/19 History Levothyroxine Sodium [Synthroid] 300 mcg PO DAILY 10/25/18 01/10/19 History INSULIN ASPART (NovoLOG) [NovoLOG 9 units SQ AC-BRKFST 10/30/18 01/10/19 History (formulary)] INSULIN ASPART (NovoLOG) [NovoLOG 12 unit SQ AC-LUNCH 10/30/18 01/10/19 History (formulary)] INSULIN ASPART (NovoLOG) [NovoLOG 12 unit SQ AC-SUPPER 10/30/18 01/10/19 History (formulary)] Insulin NPH Human Isophane 16 unit SQ HS 10/30/18 01/10/19 History [NovoLIN N] Dicyclomine [Bentyl] 20 mg PO QID 12/10/18 01/10/19 History Polyethylene Glycol 3350 [Miralax] 17 gm PO DAILY 12/10/18 01/10/19 History Omeprazole 20 mg PO BID 01/10/19 01/10/19 History Allergies Allergy/AdvReac Type Severity Reaction Status Date / Time No Known Allergies Allergy Verified 01/10/19 16:23 Physical Exam Vitals: Vital Signs Temp Pulse Pulse Resp BP BP Pulse Ox 01/11/19 15:54 77 16 01/11/19 15:44 97.6 F 77 16 142/68 01/11/19 11:41 16 01/11/19 10:22 54 L 16 134/58 95 01/11/19 09:30 67 14 137/55 93 L 01/11/19 09:00 126/74 01/11/19 08:45 58 L 14 137/58 92 L 01/11/19 08:30 60 14 149/87 94 L 01/11/19 08:00 97.8 F 97 18 153/84 97 01/11/19 04:00 97.1 F L 75 18 145/74 98 01/11/19 00:00 98.7 F 70 16 137/75 98 01/10/19 20:53 97.9 F 75 18 145/72 99 01/10/19 20:43 98.9 F 86 17 145/84 97 01/10/19 19:37 98 F 73 17 145/79 99 Intake and Output 01/11/19 01/11/19 01/11/19 06:59 14:59 22:59 Intake Total 500 490 500 Output Total 3500 Balance 500 490 -3000 Intake: IV 20 10 Invasive Line 1 20 10 Oral 480 480 Hemodialysis 500 Output: Hemodialysis 3500 Other: Voiding Method Toilet Toilet Toilet # Voids 2 Weight 117.9 kg In general patient is alert and oriented 3 in no apparent distress HEENT head normocephalic and atraumatic neck is supple no JVD no goiter no lymp hadenopathy Chest exam reveals a few scattered crackles no wheezing Cardiac exam reveals regular heart sounds no gallops no murmurs Abdomen is soft with mild diffuse tenderness no organomegaly with normal bowel sounds Extremity exam reveals 2+ edema no cyanosis or clubbing Neurological examination reveals no gross focal deficit Results CBC & Chem 7: 01/11/19 06:17 01/11/19 06:17 Labs: Abnormal Lab Results - Last 24 Hours (Table) 01/10/19 01/10/19 01/11/19 Range/Units 20:26 21:26 06:17 RBC (4.30-5.90) m/uL Hgb (13.0-17.5) gm/dL Hct (39.0-53.0) % MCV (80.0-100.0) fL MCH (25.0-35.0) pg MCHC (31.0-37.0) g/dL RDW (11.5-15.5) % Plt Count (150-450) k/uL Sodium (137-145) mmol/L Chloride (98-107) mmol/L Carbon Dioxide (22-30) mmol/L BUN (9-20) mg/dL Creatinine (0.66-1.25) mg/dL Glucose (74-99) mg/dL POC Glucose (mg/dL) 270 H 304 H (75-99) mg/dL Hemoglobin A1c 7.7 H (4.0-6.0) % Lipase (23-300) U/L 01/11/19 01/11/19 01/11/19 Range/Units 06:17 06:17 06:26 RBC 3.74 L (4.30-5.90) m/uL Hgb 7.8 L (13.0-17.5) gm/dL Hct 25.8 L (39.0-53.0) % MCV 68.9 L (80.0-100.0) fL MCH 20.8 L (25.0-35.0) pg MCHC 30.2 L (31.0-37.0) g/dL RDW 20.1 H (11.5-15.5) % Plt Count 126 L (150-450) k/uL Sodium 136 L (137-145) mmol/L Chloride 94 L (98-107) mmol/L Carbon Dioxide 34 H (22-30) mmol/L BUN 26 H (9-20) mg/dL Creatinine 5.70 H (0.66-1.25) mg/dL Glucose 137 H (74-99) mg/dL POC Glucose (mg/dL) 155 H (75-99) mg/dL Hemoglobin A1c (4.0-6.0) % Lipase 20 L (23-300) U/L 01/11/19 01/11/19 01/11/19 Range/Units 07:32 08:44 09:02 RBC (4.30-5.90) m/uL Hgb (13.0-17.5) gm/dL Hct (39.0-53.0) % MCV (80.0-100.0) fL MCH (25.0-35.0) pg MCHC (31.0-37.0) g/dL RDW (11.5-15.5) % Plt Count (150-450) k/uL Sodium (137-145) mmol/L Chloride (98-107) mmol/L Carbon Dioxide (22-30) mmol/L BUN (9-20) mg/dL Creatinine (0.66-1.25) mg/dL Glucose (74-99) mg/dL POC Glucose (mg/dL) 123 H 56 L 134 H (75-99) mg/dL Hemoglobin A1c (4.0-6.0) % Lipase (23-300) U/L 01/11/19 01/11/19 01/11/19 Range/Units 09:20 12:05 16:51 RBC (4.30-5.90) m/uL Hgb (13.0-17.5) gm/dL Hct (39.0-53.0) % MCV (80.0-100.0) fL MCH (25.0-35.0) pg MCHC (31.0-37.0) g/dL RDW (11.5-15.5) % Plt Count (150-450) k/uL Sodium (137-145) mmol/L Chloride (98-107) mmol/L Carbon Dioxide (22-30) mmol/L BUN (9-20) mg/dL Creatinine (0.66-1.25) mg/dL Glucose (74-99) mg/dL POC Glucose (mg/dL) 67 L 100 H 166 H (75-99) mg/dL Hemoglobin A1c (4.0-6.0) % Lipase (23-300) U/L Thrombosis Risk Factor Assmnt - Choose All That Apply Any of the Below Risk Factors Present?: Yes Each Factor Represents 1 point: Obesity (BMI >25), Swollen legs (current) Other Risk Factors: Yes Each Risk Factor Represents 2 Points: Age 61-74 years Thrombosis Risk Factor Assessment Total Risk Factor Score: 4 Thrombosis Risk Factor Assessment Level: Moderate Risk Assessment and Plan Plan: #1 fluid overload with worsening shortness of breath #2 end-stage renal disease on hemodialysis #3 abdominal pain with evidence of gallbladder sludge and possible chronic cholecystitis #4 underlying history of hypertension #5 underlying history of insulin-dependent diabetes mellitus Patient is scheduled for hemodialysis today further treatment would depend on clinical improvement Gastroenterology consultation requested for evaluation of abdominal pain, splenomegaly, and evidence of cholecystitis and gallbladder sludge will follow in a.m.
[2019-01-11] MEDS: ATORVASTATIN 10 MG TAB PO SCH (20:16)
[2019-01-11 20:43] LABS: Glucose,Whole Blood 251 mg/dL (75-99)
[2019-01-11] MEDS: INSULIN NPH 300 UNIT/3 ML VIAL SQ SCH (20:57)
[2019-01-11 23:31] LABS: Glucose,Whole Blood 242 mg/dL (75-99)
[2019-01-12] MEDS: CYANOCOBALAMIN 500 MCG TAB PO SCH (06:08)
[2019-01-12] MEDS: CALCIUM ACETATE 667 MG CAP PO SCH ×3 (06:08→17:08)
[2019-01-12] MEDS: LEVOTHYROXINE 100 MCG TAB PO SCH (06:08)
[2019-01-12] MEDS: MORPHINE SULFATE 4 MG/ML SYRINGE IV PRN ×2 (06:08→20:48)
[2019-01-12 06:27] LABS: Glucose,Whole Blood 85 mg/dL (75-99)
[2019-01-12 06:50] LABS: Anisocytosis Slight; Basophils % (A) 1 %; Eosinophils # (A) 0.4 k/uL (0-0.7); Eosinophils % (A) 6 %; HCT 29.2 % (39.0-53.0); HGB 8.6 gm/dL (13.0-17.5); Hypochromasia Marked; Lymphocytes # (A) 1.9 k/uL (1.0-4.8); Lymphocytes % (A) 29 %; MCH 20.2 pg (25.0-35.0); MCHC 29.4 g/dL (31.0-37.0); MCV 68.7 fL (80.0-100.0); Mean Platelet Volume 6.8; Microcytosis Marked; Monocytes # (A) 0.5 k/uL (0-1.0); Monocytes % (A) 8 %; Neutrophils # (A) 3.4 k/uL (1.3-7.7); Neutrophils % (A) 52 %; Platelet Count 134 k/uL (150-450); Poikilocytosis Slight; RBC 4.26 m/uL (4.30-5.90); RDW 19.8 % (11.5-15.5); WBC 6.5 k/uL (3.8-10.6)
[2019-01-12 06:53] LABS: Albumin 3.8 g/dL (3.5-5.0); Calcium 9.8 mg/dL (8.4-10.2); Potassium 4.4 mmol/L (3.5-5.1); Total Bilirubin 0.7 mg/dL (0.2-1.3)
[2019-01-12] MEDS: PYRIDOXINE 50 MG TAB PO SCH (09:23)
[2019-01-12] MEDS: PANTOPRAZOLE 40 MG TABLET PO SCH ×2 (09:23→20:49)
[2019-01-12] MEDS: hydrALAZINE HCL 50 MG TAB PO SCH (09:23)
[2019-01-12] MEDS: METOPROLOL SUCCINATE (ER) 50 MG TAB.ER.24H PO SCH (09:23)
[2019-01-12] MEDS: FUROSEMIDE 80 MG TAB PO SCH (09:23)
[2019-01-12] MEDS: DICYCLOMINE 20 MG TAB PO SCH ×4 (09:23→20:49)
[2019-01-12] MEDS: diphenhydrAMINE 25 MG CAP PO SCH (09:24)
[2019-01-12] MEDS: FOLIC ACID 1 MG TAB PO SCH (09:24)
[2019-01-12] MEDS: POLYETHYLENE GLYCOL 3350 17 GM POWD.PACK PO SCH (09:24)
[2019-01-12] MEDS: ASPIRIN 81 MG PO SCH (09:25)
--- NOTE | 2019-01-12 09:26 | P.PN ---
Subjective Progress Note Date: 01/12/19 Seen and examined for the follow-up of ESRD. Shortness of breath improved and 3 L of ultrafiltration was done yesterday. Complains of abdominal pain post dialysis. Objective - Vital Signs Vital signs: Vital Signs Temp 98.0 F 01/12/19 08:00 Pulse 80 01/12/19 08:00 Resp 18 01/12/19 08:00 BP 149/92 01/12/19 08:00 Pulse Ox 96 01/12/19 08:00 Intake & Output 01/11/19 01/12/19 01/12/19 18:59 06:59 18:59 Intake Total 1230 240 Output Total 3500 Balance -2270 240 Weight 116.7 kg Intake: IV 10 Invasive Line 1 10 Oral 720 240 Hemodialysis 500 Output: Hemodialysis 3500 Other: Voiding Method Toilet Toilet Toilet - Exam No acute distress S1-S2 heard Lungs clear Left upper arm AVG Trace edema - Labs CBC & Chem 7: 01/12/19 05:51 01/12/19 05:51 Labs: Abnormal Lab Results - Last 24 Hours (Table) 01/11/19 01/11/19 01/11/19 Range/Units 06:17 12:05 16:51 RBC (4.30-5.90) m/uL Hgb (13.0-17.5) gm/dL Hct (39.0-53.0) % MCV (80.0-100.0) fL MCH (25.0-35.0) pg MCHC (31.0-37.0) g/dL RDW (11.5-15.5) % Plt Count (150-450) k/uL Chloride (98-107) mmol/L Carbon Dioxide (22-30) mmol/L BUN (9-20) mg/dL Creatinine (0.66-1.25) mg/dL Glucose (74-99) mg/dL POC Glucose (mg/dL) 100 H 166 H (75-99) mg/dL Hemoglobin A1c 7.7 H (4.0-6.0) % ALT (21-72) U/L Total Protein (6.3-8.2) g/dL 01/11/19 01/11/19 01/12/19 Range/Units 20:42 23:19 05:51 RBC 4.26 L (4.30-5.90) m/uL Hgb 8.6 L (13.0-17.5) gm/dL Hct 29.2 L (39.0-53.0) % MCV 68.7 L (80.0-100.0) fL MCH 20.2 L (25.0-35.0) pg MCHC 29.4 L (31.0-37.0) g/dL RDW 19.8 H (11.5-15.5) % Plt Count 134 L (150-450) k/uL Chloride (98-107) mmol/L Carbon Dioxide (22-30) mmol/L BUN (9-20) mg/dL Creatinine (0.66-1.25) mg/dL Glucose (74-99) mg/dL POC Glucose (mg/dL) 251 H 242 H (75-99) mg/dL Hemoglobin A1c (4.0-6.0) % ALT (21-72) U/L Total Protein (6.3-8.2) g/dL 01/12/19 Range/Units 05:51 RBC (4.30-5.90) m/uL Hgb (13.0-17.5) gm/dL Hct (39.0-53.0) % MCV (80.0-100.0) fL MCH (25.0-35.0) pg MCHC (31.0-37.0) g/dL RDW (11.5-15.5) % Plt Count (150-450) k/uL Chloride 97 L (98-107) mmol/L Carbon Dioxide 32 H (22-30) mmol/L BUN 23 H (9-20) mg/dL Creatinine 5.05 H (0.66-1.25) mg/dL Glucose 65 L (74-99) mg/dL POC Glucose (mg/dL) (75-99) mg/dL Hemoglobin A1c (4.0-6.0) % ALT 19 L (21-72) U/L Total Protein 6.0 L (6.3-8.2) g/dL Assessment and Plan Assessment: #1 shortness of breath secondary to volume overload. Improved with dialysis #2 ESRD, MWF, left upper arm AVG #3 anemia with ESRD #4 hypertension with ESRD #5 metabolic bone disease with ESRD Plan: #1 hemodialysis tomorrow. Plan 3 L of ultrafiltration. #2 ESRD medications
--- NOTE | 2019-01-12 11:14 | PN ---
PROGRESS NOTE DATE OF DICTATION: January 12, 2019 Patient is a 63-year-old pleasant white male admitted to the hospital with shortness of breath for the last 2 days duration. He has history of end-stage renal disease, on hemodialysis for 5 years duration. He underwent dialysis yesterday and since then he is feeling much better. He is being seen by Dr. Menjivar on an outpatient basis for chronic abdominal pain and was investigated extensively in the last 3 months with EGD colonoscopy which was unremarkable. He was started on dicyclomine 10 mg 3 times daily and he is gradually improving. Today, he states that the pain is much better. No nausea, vomiting. PHYSICAL EXAMINATION: Appears comfortable. No apparent distress. VITAL SIGNS: Stable. Blood pressure 131/76, pulse 77, temperature 98.4. HEENT examination unremarkable. Conjunctivae pink. Sclerae anicteric. Oral cavity no lesions. Neck: No JVD or lymph node enlargement. Chest was clear to auscultation. HEART: Regular rate and rhythm. ABDOMEN: Soft. Bowel sounds are positive. No organomegaly. EXTREMITIES: No pedal edema. SKIN no rashes. NEUROLOGIC: Alert and oriented x3. No focal deficits. LABS: From today WBC 6.5, hemoglobin 8.6, platelets 134, BUN 23, creatinine 5.05. IMPRESSION: 1. End-stage renal disease, on hemodialysis. 2. Shortness of breath/dyspnea on exertion, gradually improving since his dialysis from yesterday. 3. Microcytic hypochromic anemia, status post EGD and colonoscopy by Dr. Menjivar 2 months ago that showed moderate gastritis, duodenitis, and diverticulosis. 4. Chronic abdominal pain, possibly functional etiology. Dr. Menjivar follows the patient on an outpatient basis. RECOMMENDATIONS: 1. Continue with dicyclomine 10 mg 3 times daily. 2. Continue with PPI, Protonix [address] Menjivar will resume care from tomorrow. Thank you for this consultation. MMODL / IJN: [id number] /
--- NOTE | 2019-01-12 11:25 | P.GSCN ---
History of Present Illness Consult date: 01/12/19 History of present illness: 63-year-old male presents to the emergency department with complaints of abdominal pain. He states that the abdominal pain has been chronic since July of this year. He states that the abdominal pain is in the epigastrium and is constant throughout the day with occasional worsening. He is unsure of whether oral intake exacerbates the pain. He denies any current nausea or vomiting episodes. He has been seen by gastroenterology previously and during this current admission. He also follows as an outpatient. He had recent upper and lower endoscopy without any significant finding of the cause of pain. He was noted to have gastritis and duodenitis. Imaging has been performed as an outpatient with an ultrasound of the gallbladder. There is notable gallbladder sludge and some suspicion of chronic cholecystitis. The patient denies any radiation of the pain to the back or shoulder. He is noted to be a hemodialysis patient does receive dialysis on Sunday, Sunday and Sunday. Review of Systems All systems: negative Past Medical History Past Medical History: Heart Failure, Diabetes Mellitus, Dialysis, Hyperlipidemia, Hypertension, Renal Disease Additional Past Medical History / Comment(s): 50 ounces fluid restrictions per day.ESRD with hemodailysis MWF- abdominal pain/nausea, hyperkalemia, chronic anemia, IDDM type II, neuropathy bilateral feet, bilateral eye retinopathy and leaking vessel behind R eye and recently told also now behind L eye, past R great toe diabetic ulcer which was healed thru [facility] History of Any Multi-Drug Resistant Organisms: None Reported Past Surgical History: Heart Catheterization With Stent, Joint Replacement, Orthopedic Surgery Additional Past Surgical History / Comment(s): PCI with stent in 2008, L arm g raft for dialysis, R eye injections/laser surgery, R knee plate with screws, R total hip, 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 Past Anesthesia/Blood Transfusion Reactions: No Reported Reaction Additional Past Anesthesia/Blood Transfusion Reaction / Comm: Pt states he has woken during surgeries in the past. Date of Last Stent Placement:: 2008 Past Psychological History: No Psychological Hx Reported Additional Psychological History / Comment(s): . Lives with his and 2 dogs. Pt uses cane to ambulate. He drives. Smoking Status: Former smoker Past Alcohol Use History: None Reported Additional Past Alcohol Use History / Comment(s): Pt started smoking as a teen and quit in 1989 Past Drug Use History: None Reported - Past Family History Mother Family Medical History: Congestive Heart Failure (CHF) Additional Family Medical History / Comment(s): Mother lived to be 89 yrs old. Father Family Medical History: Congestive Heart Failure (CHF) Additional Family Medical History / Comment(s): Father lived to be 93 yrs old. Brother(s) Family Medical History: Congestive Heart Failure (CHF) Additional Family Medical History / Comment(s): Brother at the age of 67yrs. Medications and Allergies Home Medications Medication Instructions Recorded Confirmed Type Aspirin [Adult Low Dose Aspirin EC] 81 mg PO DAILY 10/23/16 01/10/19 History Atorvastatin [Lipitor] 10 mg PO HS 10/23/16 01/10/19 History Ergocalciferol (Vitamin D2) 50,000 unit PO Q14D 10/23/16 01/10/19 History [Vitamin D2] hydrALAZINE HCL 50 mg PO DAILY 10/23/16 01/10/19 History Pyridoxine [Vitamin B-6] 100 mg PO DAILY 08/29/17 01/10/19 History diphenhydrAMINE [Benadryl] 25 mg PO DAILY 08/29/17 01/10/19 History Folic Acid 0.8 mg PO DAILY 12/07/17 01/10/19 History Metoprolol Succinate (ER) [Toprol 50 mg PO DAILY 05/08/18 01/10/19 History XL] Calcium Acetate [PhosLo] 2,668 mg PO AC-TID 09/12/18 01/10/19 History Cyanocobalamin [Vitamin B-12] 500 mcg PO DAILY 09/12/18 01/10/19 History Furosemide [Lasix] 80 mg PO DAILY 09/12/18 01/10/19 History Levothyroxine Sodium [Synthroid] 300 mcg PO DAILY 10/25/18 01/10/19 History INSULIN ASPART (NovoLOG) [NovoLOG 9 units SQ AC-BRKFST 10/30/18 01/10/19 History (formulary)] INSULIN ASPART (NovoLOG) [NovoLOG 12 unit SQ AC-LUNCH 10/30/18 01/10/19 History (formulary)] INSULIN ASPART (NovoLOG) [NovoLOG 12 unit SQ AC-SUPPER 10/30/18 01/10/19 History (formulary)] Insulin NPH Human Isophane 16 unit SQ HS 10/30/18 01/10/19 History [NovoLIN N] Dicyclomine [Bentyl] 20 mg PO QID 12/10/18 01/10/19 History Polyethylene Glycol 3350 [Miralax] 17 gm PO DAILY 12/10/18 01/10/19 History Omeprazole 20 mg PO BID 01/10/19 01/10/19 History Allergies Allergy/AdvReac Type Severity Reaction Status Date / Time No Known Allergies Allergy Verified 01/10/19 16:23 Surgical - Exam Osteopathic Statement: *. No significant issues noted on an osteopathic structural exam other than those noted in the History and Physical/Consult. Vital Signs Temp Pulse Resp BP Pulse Ox 98.1 F 81 20 133/72 97 01/10/19 15:24 01/10/19 15:24 01/10/19 15:24 01/10/19 15:24 01/10/19 15:24 - General no distress - Eyes PERRL - Respiratory No difficulty with respiration - Abdomen Soft, mild tenderness to the epigastrium, nondistended, no rebound, no guarding - Psychiatric oriented to time, oriented to person, oriented to place Results - Labs 01/12/19 05:51 01/12/19 05:51 Abnormal Lab Results - Last 24 Hours (Table) 01/11/19 01/11/19 01/11/19 Range/Units 06:17 12:05 16:51 RBC (4.30-5.90) m/uL Hgb (13.0-17.5) gm/dL Hct (39.0-53.0) % MCV (80.0-100.0) fL MCH (25.0-35.0) pg MCHC (31.0-37.0) g/dL RDW (11.5-15.5) % Plt Count (150-450) k/uL Chloride (98-107) mmol/L Carbon Dioxide (22-30) mmol/L BUN (9-20) mg/dL Creatinine (0.66-1.25) mg/dL Glucose (74-99) mg/dL POC Glucose (mg/dL) 100 H 166 H (75-99) mg/dL Hemoglobin A1c 7.7 H (4.0-6.0) % ALT (21-72) U/L Total Protein (6.3-8.2) g/dL 01/11/19 01/11/19 01/12/19 Range/Units 20:42 23:19 05:51 RBC 4.26 L (4.30-5.90) m/uL Hgb 8.6 L (13.0-17.5) gm/dL Hct 29.2 L (39.0-53.0) % MCV 68.7 L (80.0-100.0) fL MCH 20.2 L (25.0-35.0) pg MCHC 29.4 L (31.0-37.0) g/dL RDW 19.8 H (11.5-15.5) % Plt Count 134 L (150-450) k/uL Chloride (98-107) mmol/L Carbon Dioxide (22-30) mmol/L BUN (9-20) mg/dL Creatinine (0.66-1.25) mg/dL Glucose (74-99) mg/dL POC Glucose (mg/dL) 251 H 242 H (75-99) mg/dL Hemoglobin A1c (4.0-6.0) % ALT (21-72) U/L Total Protein (6.3-8.2) g/dL 01/12/19 Range/Units 05:51 RBC (4.30-5.90) m/uL Hgb (13.0-17.5) gm/dL Hct (39.0-53.0) % MCV (80.0-100.0) fL MCH (25.0-35.0) pg MCHC (31.0-37.0) g/dL RDW (11.5-15.5) % Plt Count (150-450) k/uL Chloride 97 L (98-107) mmol/L Carbon Dioxide 32 H (22-30) mmol/L BUN 23 H (9-20) mg/dL Creatinine 5.05 H (0.66-1.25) mg/dL Glucose 65 L (74-99) mg/dL POC Glucose (mg/dL) (75-99) mg/dL Hemoglobin A1c (4.0-6.0) % ALT 19 L (21-72) U/L Total Protein 6.0 L (6.3-8.2) g/dL Diabetes panel 01/11/19 01/12/19 Range/Units 06:17 05:51 Sodium 137 (137-145) mmol/L Potassium 4.4 (3.5-5.1) mmol/L Chloride 97 L (98-107) mmol/L Carbon Dioxide 32 H (22-30) mmol/L BUN 23 H (9-20) mg/dL Creatinine 5.05 H (0.66-1.25) mg/dL Glucose 65 L (74-99) mg/dL Hemoglobin A1c 7.7 H (4.0-6.0) % Calcium 9.8 (8.4-10.2) mg/dL AST 23 (17-59) U/L ALT 19 L (21-72) U/L Alkaline Phosphatase 97 (38-126) U/L Total Protein 6.0 L (6.3-8.2) g/dL Albumin 3.8 (3.5-5.0) g/dL Calcium panel 01/12/19 Range/Units 05:51 Calcium 9.8 (8.4-10.2) mg/dL Albumin 3.8 (3.5-5.0) g/dL Pituitary panel 01/12/19 Range/Units 05:51 Sodium 137 (137-145) mmol/L Potassium 4.4 (3.5-5.1) mmol/L Chloride 97 L (98-107) mmol/L Carbon Dioxide 32 H (22-30) mmol/L BUN 23 H (9-20) mg/dL Creatinine 5.05 H (0.66-1.25) mg/dL Glucose 65 L (74-99) mg/dL Calcium 9.8 (8.4-10.2) mg/dL Adrenal panel 01/12/19 Range/Units 05:51 Sodium 137 (137-145) mmol/L Potassium 4.4 (3.5-5.1) mmol/L Chloride 97 L (98-107) mmol/L Carbon Dioxide 32 H (22-30) mmol/L BUN 23 H (9-20) mg/dL Creatinine 5.05 H (0.66-1.25) mg/dL Glucose 65 L (74-99) mg/dL Calcium 9.8 (8.4-10.2) mg/dL Total Bilirubin 0.7 (0.2-1.3) mg/dL AST 23 (17-59) U/L ALT 19 L (21-72) U/L Alkaline Phosphatase 97 (38-126) U/L Total Protein 6.0 L (6.3-8.2) g/dL Albumin 3.8 (3.5-5.0) g/dL Assessment and Plan Plan: 63-year-old male with chronic epigastric pain - I did review the patient's outpatient ultrasound that does show possibility of gallbladder sludge, some gallbladder wall thickening possibility of chronic cholecystitis. We will obtain a HIDA scan for further evaluation. Based on HIDA scan findings, we will make a plan for possible cholecystectomy during this admission. Further recommendations to follow imaging. Thank you for this consultation, I look forward in providing in this patient's care
[2019-01-12 11:41] LABS: Glucose,Whole Blood 193 mg/dL (75-99)
[2019-01-12] MEDS: INSULIN ASPART (NovoLOG) 100 UNIT/ML VIAL SQ SCH ×2 (12:22→17:08)
--- NOTE | 2019-01-12 16:35 | P.PN ---
Subjective Progress Note Date: 01/12/19 Quoc Tompkins is a 63-year-old male, with known history of end-stage renal disease on hemodialysis who presented to [facility] emergency room with a chief complaint of worsening shortness of breath and evidence of pulmonary congestion on chest x-ray and elevated BNP patient was admitted to medical floor and nephrology consultation was requested for further hemodialysis treatment. Patient had hemodialysis on the day prior to admission. Patient has a known history of end-stage renal disease for the last 8 years initially he was started on peritoneal dialysis for a few months however he had an episode of severe peritonitis and had to be switched to hemodialysis he has been on hemodialysis for more than 7 years. Patient stated that for the last few weeks he has been having episodes of abdominal pain he had a computed tomography scan of the abdomen and pelvis in the beginning of shortness and an ultrasound of the gallbladder few days ago. He has evidence of splenomegaly and gallbladder wall thickening and evidence of gallbladder sludge. On 01/12/2019 patient was seen and examined on the medical floor he is alert and oriented 3 in no apparent distress shortness of breath has improved he is still complaining of abdominal pain otherwise he denies any complaints there is no fever or chills no headache or dizziness no chest pain no shortness of breath no cough no nausea or vomiting no abdominal pain no diarrhea and no urinary symptoms Objective - Vital Signs Vital signs: Vital Signs Temp 98.5 F 01/12/19 12:00 Pulse 84 01/12/19 12:00 Resp 18 01/12/19 12:00 BP 167/89 01/12/19 12:00 Pulse Ox 98 01/12/19 12:00 Intake & Output 01/11/19 01/12/19 01/12/19 18:59 06:59 18:59 Intake Total 1230 540 Output Total 3500 Balance -2270 540 Weight 116.7 kg Intake: IV 10 Invasive Line 1 10 Oral 720 540 Hemodialysis 500 Output: Hemodialysis 3500 Other: Voiding Method Toilet Toilet Toilet - Exam In general patient is alert and oriented 3 in no apparent distress HEENT head normocephalic and atraumatic neck is supple no JVD no goiter no lymphadenopathy Chest exam reveals a few scattered crackles no wheezing Cardiac exam reveals regular heart sounds no gallops no murmurs Abdomen is soft with mild diffuse tenderness no organomegaly with normal bowel sounds Extremity exam reveals 2+ edema no cyanosis or clubbing Neurological examination reveals no gross focal deficit - Labs CBC & Chem 7: 01/12/19 05:51 01/12/19 05:51 Labs: Abnormal Lab Results - Last 24 Hours (Table) 01/11/19 01/11/19 01/11/19 Range/Units 16:51 20:42 23:19 RBC (4.30-5.90) m/uL Hgb (13.0-17.5) gm/dL Hct (39.0-53.0) % MCV (80.0-100.0) fL MCH (25.0-35.0) pg MCHC (31.0-37.0) g/dL RDW (11.5-15.5) % Plt Count (150-450) k/uL Chloride (98-107) mmol/L Carbon Dioxide (22-30) mmol/L BUN (9-20) mg/dL Creatinine (0.66-1.25) mg/dL Glucose (74-99) mg/dL POC Glucose (mg/dL) 166 H 251 H 242 H (75-99) mg/dL ALT (21-72) U/L Total Protein (6.3-8.2) g/dL 01/12/19 01/12/19 01/12/19 Range/Units 05:51 05:51 11:39 RBC 4.26 L (4.30-5.90) m/uL Hgb 8.6 L (13.0-17.5) gm/dL Hct 29.2 L (39.0-53.0) % MCV 68.7 L (80.0-100.0) fL MCH 20.2 L (25.0-35.0) pg MCHC 29.4 L (31.0-37.0) g/dL RDW 19.8 H (11.5-15.5) % Plt Count 134 L (150-450) k/uL Chloride 97 L (98-107) mmol/L Carbon Dioxide 32 H (22-30) mmol/L BUN 23 H (9-20) mg/dL Creatinine 5.05 H (0.66-1.25) mg/dL Glucose 65 L (74-99) mg/dL POC Glucose (mg/dL) 193 H (75-99) mg/dL ALT 19 L (21-72) U/L Total Protein 6.0 L (6.3-8.2) g/dL Assessment and Plan Plan: #1 fluid overload with worsening shortness of breath #2 end-stage renal disease on hemodialysis #3 abdominal pain with evidence of gallbladder sludge and possible chronic cholecystitis #4 underlying history of hypertension #5 underlying history of insulin-dependent diabetes mellitus Patient is scheduled for hemodialysis today further treatment would depend on clinical improvement Gastroenterology consultation requested for evaluation of abdominal pain, sp lenomegaly, and evidence of cholecystitis and gallbladder sludge will follow in a.m. Surgical consultation was requested in regards to chronic cholecystitis will follow in a.m.
[2019-01-12 16:42] LABS: Glucose,Whole Blood 173 mg/dL (75-99)
[2019-01-12] MEDS: ATORVASTATIN 10 MG TAB PO SCH (20:49)
[2019-01-12] MEDS: INSULIN NPH 300 UNIT/3 ML VIAL SQ SCH (21:07)
[2019-01-12 21:13] LABS: Glucose,Whole Blood 128 mg/dL (75-99)
[2019-01-13] MEDS: LEVOTHYROXINE 100 MCG TAB PO SCH (06:13)
[2019-01-13 07:14] LABS: Glucose,Whole Blood 253 mg/dL (75-99)
--- NOTE | 2019-01-13 10:39 | NM ---
EXAMINATION TYPE: NM hepatobiliary w CCK DATE OF EXAM: 01/13/2019 COMPARISON: NONE HISTORY: Chronic cholecystitis and abdominal pain TECHNIQUE: After the intravenous administration of 4.5 mCi Tc 99m Mebrofenin hepatobiliary scintigrap hy is performed. Immediate images post injection. FINDINGS: There is satisfactory initial accumulation of tracer by the liver. The gallbladder is visualized wit hin 20 minutes. The small bowel activity is noted within 26 minutes. At one hour CCK was administer ed, ensure was administered to mimic Kinevac, and gallbladder ejection fraction is calculated at 6 %, markedly low and abnormal. Therefore there is no scintigraphic evidence of cystic or common bile du ct obstruction to suggest acute cholecystitis or gallbladder dyskinesia. IMPRESSION: 1. Abnormal gallbladder ejection fraction of 6% indicative of biliary dyskinesia. 2. No scintigraphic evidence of acute or chronic cholecystitis.
[2019-01-13] MEDS: CALCIUM ACETATE 667 MG CAP PO SCH ×2 (10:43→11:40)
[2019-01-13 11:21] LABS: Glucose,Whole Blood 236 mg/dL (75-99)
[2019-01-13] MEDS: INSULIN ASPART (NovoLOG) 100 UNIT/ML VIAL SQ SCH ×2 (11:39→16:43)
[2019-01-13] MEDS: PYRIDOXINE 50 MG TAB PO SCH (11:40)
[2019-01-13] MEDS: FOLIC ACID 1 MG TAB PO SCH (11:40)
[2019-01-13] MEDS: CYANOCOBALAMIN 500 MCG TAB PO SCH (11:40)
[2019-01-13] MEDS: POLYETHYLENE GLYCOL 3350 17 GM POWD.PACK PO SCH (11:41)
[2019-01-13] MEDS: PANTOPRAZOLE 40 MG TABLET PO SCH ×2 (11:41→21:27)
--- NOTE | 2019-01-13 12:13 | P.PN ---
Subjective Progress Note Date: 01/13/19 Principal diagnosis: Shortness of breath end-stage renal disease History of chronic abdominal pain. HIDA scan performed this morning results reported diminished ejection fraction 6%. General surgery following. Dialysis schedule today. LFTs stable. Objective - Vital Signs Vital signs: Vital Signs Temp 97.8 F 01/13/19 07:54 Pulse 72 01/13/19 07:54 Resp 16 01/13/19 07:54 BP 157/88 01/13/19 07:54 Pulse Ox 97 01/13/19 07:54 Intake & Output 01/12/19 01/13/19 01/13/19 18:59 06:59 18:59 Intake Total 780 0 Output Total 10 Balance 780 -10 Intake: Oral 780 0 Output: Urine 10 Other: Voiding Method Toilet Toilet Toilet - Exam General appearance: The patient is alert, oriented, in no acute distress. HET: Head is normocephalic and atraumatic. Pupils are equal and reactive. Oropharynx is clear without lesions. Neck: Supple without lymphadenopathy. Trachea midline. Heart: S1 S2. Regular rate and rhythm. Lungs: No crackles or wheezes are heard. Abdomen: Soft, nontender, nondistended with bowel sounds. No peritoneal signs. No palpable organomegaly or masses. Extremities: Normal skin color and turgor. No cyanosis, rash, ulceration, clubbing, or edema. Radial and pedal pulses are 2/4 bilaterally. Neurological: No focal deficits. Strength and sensation are grossly intact. - Labs CBC & Chem 7: 01/12/19 05:51 01/12/19 05:51 Labs: Abnormal Lab Results - Last 24 Hours (Table) 01/12/19 01/12/19 01/13/19 Range/Units 16:40 21:06 07:02 POC Glucose (mg/dL) 173 H 128 H 253 H (75-99) mg/dL 01/13/19 Range/Units 11:09 POC Glucose (mg/dL) 236 H (75-99) mg/dL Assessment and Plan (1) Abdominal pain Narrative/Plan: Acute on chronic. HIDA scan shows ejection fraction 6% LFTs stable. Current Visit: No Status: Acute Code(s): R10.9 - UNSPECIFIED ABDOMINAL PAIN SNOMED Code(s): 44892094 (2) Shortness of breath Current Visit: Yes Status: Acute Code(s): R06.02 - SHORTNESS OF BREATH SNOMED Code(s): 364840973 (3) End stage renal disease Narrative/Plan: Hemodialysis dependent Current Visit: Yes Status: Acute Code(s): N18.6 - END STAGE RENAL DISEASE SNOMED Code(s): 20494744 Plan: 1. General surgery following will review HIDA. Possible or today. Continuous supportive measures. We'll follow on an as-needed basis. Assessment and plan a care discussed with Dr. Natarajan
[2019-01-13 13:03] LABS: Anisocytosis Moderate; Basophils % (A) 1 %; Eosinophils # (A) 0.3 k/uL (0-0.7); Eosinophils % (A) 6 %; HCT 30.2 % (39.0-53.0); Hypochromasia Marked; Lymphocytes # (A) 1.1 k/uL (1.0-4.8); Lymphocytes % (A) 24 %; MCH 20.9 pg (25.0-35.0); MCV 69.7 fL (80.0-100.0); Mean Platelet Volume 7.1; Microcytosis Marked; Monocytes # (A) 0.3 k/uL (0-1.0); Monocytes % (A) 6 %; Neutrophils % (A) 62 %; Platelet Count 126 k/uL (150-450); Poikilocytosis Moderate; RBC 4.33 m/uL (4.30-5.90); RDW 20.7 % (11.5-15.5); WBC 4.8 k/uL (3.8-10.6)
--- NOTE | 2019-01-13 13:37 | P.PN ---
Subjective Progress Note Date: 01/13/19 Quoc Tompkins is a 63-year-old male, with known history of end-stage renal disease on hemodialysis who presented to [facility] emergency room with a chief complaint of worsening shortness of breath and evidence of pulmonary congestion on chest x-ray and elevated BNP patient was admitted to medical floor and nephrology consultation was requested for further hemodialysis treatment. Patient had hemodialysis on the day prior to admission. Patient has a known history of end-stage renal disease for the last 8 years initially he was started on peritoneal dialysis for a few months however he had an episode of severe peritonitis and had to be switched to hemodialysis he has been on hemodialysis for more than 7 years. Patient stated that for the last few weeks he has been having episodes of abdominal pain he had a computed tomography scan of the abdomen and pelvis in the beginning of shortness and an ultrasound of the gallbladder few days ago. He has evidence of splenomegaly and gallbladder wall thickening and evidence of gallbladder sludge. On 01/12/2019 patient was seen and examined on the medical floor he is alert and oriented 3 in no apparent distress shortness of breath has improved he is still complaining of abdominal pain otherwise he denies any complaints there is no fever or chills no headache or dizziness no chest pain no shortness of breath no cough no nausea or vomiting no abdominal pain no diarrhea and no urinary symptoms On 01/13/2019 patient is alert and oriented 3. Patient to undergo HIDA scan with possible surgical intervention pending results. Patient also to receive hemodialysis today. Patient is still complaining of some abdominal pain with nausea. Patient denies any chest pain or shortness breath. Patient denies any urinary burning or frequency. Patient denies any diarrhea. Objective - Vital Signs Vital signs: Vital Signs Temp 97.8 F 01/13/19 07:54 Pulse 72 01/13/19 07:54 Resp 16 01/13/19 07:54 BP 157/88 01/13/19 07:54 Pulse Ox 97 01/13/19 07:54 Intake & Output 01/12/19 01/13/19 01/13/19 18:59 06:59 18:59 Intake Total 780 0 Output Total 10 Balance 780 -10 Weight 117.5 kg Intake: Oral 780 0 Output: Urine 10 Other: Voiding Method Toilet Toilet Toilet - Exam In general patient is alert and oriented 3 in no apparent distress HEENT head normocephalic and atraumatic neck is supple no JVD no goiter no lymphadenopathy Chest exam reveals a few scattered crackles no wheezing Cardiac exam reveals regular heart sounds no gallops no murmurs Abdomen is soft with mild diffuse tenderness no organomegaly with normal bowel sounds Extremity exam reveals 2+ edema no cyanosis or clubbing Neurological examination reveals no gross focal deficit - Labs CBC & Chem 7: 01/13/19 12:40 01/12/19 05:51 Labs: Abnormal Lab Results - Last 24 Hours (Table) 01/12/19 01/12/19 01/13/19 Range/Units 16:40 21:06 07:02 Hgb (13.0-17.5) gm/dL Hct (39.0-53.0) % MCV (80.0-100.0) fL MCH (25.0-35.0) pg MCHC (31.0-37.0) g/dL RDW (11.5-15.5) % Plt Count (150-450) k/uL POC Glucose (mg/dL) 173 H 128 H 253 H (75-99) mg/dL 01/13/19 01/13/19 Range/Units 11:09 12:40 Hgb 9.0 L (13.0-17.5) gm/dL Hct 30.2 L (39.0-53.0) % MCV 69.7 L (80.0-100.0) fL MCH 20.9 L (25.0-35.0) pg MCHC 30.0 L (31.0-37.0) g/dL RDW 20.7 H (11.5-15.5) % Plt Count 126 L (150-450) k/uL POC Glucose (mg/dL) 236 H (75-99) mg/dL Assessment and Plan Assessment: #1 fluid overload with worsening shortness of breath #2 end-stage renal disease on hemodialysis #3 abdominal pain with evidence of gallbladder sludge and possible chronic cholecystitis #4 underlying history of hypertension #5 underlying history of insulin-dependent diabetes mellitus Patient is scheduled for hemodialysis today further treatment would depend on clinical improvement Gastroenterology consultation requested for evaluation of abdominal pain, splenomegaly, and evidence of cholecystitis and gallbladder sludge will follow in a.m. HIDA scan performed showing abnormal gallbladder ejection fraction of 60% indicated of biliary dyskinesia no signs x-ray graphic evidence of acute on chronic cholecystitis. Surgical services are following DVT prophylaxis SCDs. GI prophylaxis Protonix I performed an examination of the patient and discussed their management with the Nurse Practitioner. I have reviewed the Nurse Practitioner's notes and agree with the documented findings and plan of care
[2019-01-13 14:51] LABS: Glucose,Whole Blood 117 mg/dL (75-99)
[2019-01-13] MEDS: ASPIRIN 81 MG PO SCH (15:28)
[2019-01-13] MEDS: DICYCLOMINE 20 MG TAB PO SCH ×4 (15:28→22:01)
[2019-01-13] MEDS: diphenhydrAMINE 25 MG CAP PO SCH (15:28)
[2019-01-13] MEDS: FUROSEMIDE 80 MG TAB PO SCH (15:29)
[2019-01-13] MEDS: hydrALAZINE HCL 50 MG TAB PO SCH (15:29)
[2019-01-13] MEDS: METOPROLOL SUCCINATE (ER) 50 MG TAB.ER.24H PO SCH (15:30)
[2019-01-13 16:35] LABS: Glucose,Whole Blood 136 mg/dL (75-99)
[2019-01-13 16:48] LABS: Albumin 4.1 g/dL (3.5-5.0); Calcium 9.6 mg/dL (8.4-10.2); Total Protein 6.3 g/dL (6.3-8.2)
[2019-01-13] MEDS ORDERED: SODIUM CHLORIDE 0.9% 500 ML 500 ML IV ONE (17:27)
[2019-01-13] MEDS ORDERED: BUPIVACAINE (PF) 0.5% 30 ML VIAL SQ ONE ×2 (17:50)
--- NOTE | 2019-01-13 18:42 | P.OP ---
Date of Procedure: 01/13/19 Preoperative Diagnosis: Biliary dyskinesia, abdominal pain, gallbladder sludge Postoperative Diagnosis: Biliary dyskinesia, abdominal pain, cholelithiasis Procedure(s) Performed: Laparoscopic cholecystectomy Anesthesia: NASH Surgeon: Kia Best Pathology: other (Gallbladder, cholelithiasis) Condition: stable Disposition: floor Indications for Procedure: 63-year-old male with chronic abdominal pain for approximately 6 months. On workup, he did have an ultrasound of the gallbladder that did show biliary sludge and concern for chronic cholecystitis. HIDA scan was also performed that did show a 6% ejection fraction concerning for biliary dyskinesia. Secondary to these findings, plan was for laparoscopic cholecystectomy. Risks, benefits and alternatives were provided to the patient prior to attending the operating suite. Operative Findings: Distended gallbladder with surrounding peritoneal adhesions, cholelithiasis Description of Procedure: The patient was brought into the operating suite and placed in supine position on the operating table. Sedation was provided by anesthesia and the patient underwent endotracheal intubation. The patient was then prepped and draped in regular sterile fashion. Local anesthetic was a bootmaker in the infraumbilical incision site. Incision was made dissection was carried to the fascia the fascia was incised and a 10 mm trocar was placed. Pneumoperitoneum was achieved. The patient was then positioned appropriately. There was notable omental adhesions in the right upper quadrant. Dissection was carried with Metzenbaum scissors to dissect the omentum adhesions. The gallbladder was then clearly visualized and 35 mm ports were placed in the abdomen. 2 were placed in the right upper quadrant and one was placed in the subxiphoid location. The gallbladder was grasped and retracted and was noted to have multiple peritoneal and omental adhesions. These were dissected free. Dissection was then carried to skeletonize the cystic duct and the cystic artery. Once both were skeletonized, 2 clips were placed proximally on the cystic duct one was placed distally and the cystic duct was ligated. 2 clips were placed proximally on the cystic artery and one was placed distally and the cystic artery was ligated. Cautery was then used to dissect the gallbladder from the gallbladder fossa maintaining hemostasis. The gallbladder was then placed in an Endo Catch bag and removed from the abdomen. Copious muss irrigation was placed in the right upper quadrant. The 10 mm trocar site was then closed using 0 Vicryl suture on the fascia. This was done using a Heriberto-Blair device under direct visualization. Pneumoperitoneum was then released and all ports removed from the abdomen. All incision sites were closed with 4-0 Vicryl subcuticular suture. The gallbladder was examined at the back table and was noted to contain cholelithiasis with clips in appropriate position. The patient was awakened in the operating suite and taken to postanesthesia care unit in stable condition.
[2019-01-13] MEDS ORDERED: LACTATED RINGERS 1,000 ML IV ONE (18:50)
[2019-01-13] MEDS ORDERED: HYDROmorphone 1 MG/ML 1 ML SYRINGE IVP ONE ×3 (18:50→19:37)
[2019-01-13] MEDS ORDERED: diphenhydrAMINE 50 MG/ML 1 ML VIAL IVP ONE (18:59)
[2019-01-13 19:01] LABS: Glucose,Whole Blood 199 mg/dL (75-99)
[2019-01-13] MEDS: ATORVASTATIN 10 MG TAB PO SCH (21:27)
[2019-01-13 21:30] LABS: Glucose,Whole Blood 205 mg/dL (75-99)
[2019-01-13] MEDS: INSULIN NPH 300 UNIT/3 ML VIAL SQ SCH (22:01)
[2019-01-13] MEDS: MORPHINE SULFATE 4 MG/ML SYRINGE IV PRN (23:25)
[2019-01-14] MEDS: LEVOTHYROXINE 100 MCG TAB PO SCH (06:12)
[2019-01-14 06:51] LABS: Glucose,Whole Blood 182 mg/dL (75-99)
[2019-01-14 08:20] LABS: Anisocytosis Moderate; Basophils % (A) 1 %; Eosinophils # (A) 0.3 k/uL (0-0.7); Eosinophils % (A) 5 %; HCT 30.2 % (39.0-53.0); HGB 8.9 gm/dL (13.0-17.5); Hypochromasia Marked; Lymphocytes # (A) 0.9 k/uL (1.0-4.8); Lymphocytes % (A) 16 %; MCH 20.9 pg (25.0-35.0); MCHC 29.6 g/dL (31.0-37.0); MCV 70.7 fL (80.0-100.0); Mean Platelet Volume 7.2; Microcytosis Marked; Monocytes # (A) 0.4 k/uL (0-1.0); Monocytes % (A) 6 %; Neutrophils # (A) 4.2 k/uL (1.3-7.7); Neutrophils % (A) 70 %; Platelet Count 136 k/uL (150-450); Poikilocytosis Slight; RBC 4.27 m/uL (4.30-5.90); RDW 20.6 % (11.5-15.5); WBC 5.9 k/uL (3.8-10.6)
[2019-01-14 08:23] LABS: Calcium 9.4 mg/dL (8.4-10.2); Potassium 4.7 mmol/L (3.5-5.1); Total Bilirubin 0.8 mg/dL (0.2-1.3); Total Protein 6.1 g/dL (6.3-8.2)
[2019-01-14] MEDS: POLYETHYLENE GLYCOL 3350 17 GM POWD.PACK PO SCH (09:52)
[2019-01-14] MEDS: CALCIUM ACETATE 667 MG CAP PO SCH ×3 (09:52→17:19)
[2019-01-14] MEDS: hydrALAZINE HCL 50 MG TAB PO SCH (09:53)
[2019-01-14] MEDS: DICYCLOMINE 20 MG TAB PO SCH ×4 (09:54→20:47)
[2019-01-14] MEDS: PYRIDOXINE 50 MG TAB PO SCH (09:55)
[2019-01-14] MEDS: FUROSEMIDE 80 MG TAB PO SCH (09:55)
[2019-01-14] MEDS: FOLIC ACID 1 MG TAB PO SCH (09:56)
[2019-01-14] MEDS: PANTOPRAZOLE 40 MG TABLET PO SCH ×2 (09:56→20:46)
[2019-01-14] MEDS: METOPROLOL SUCCINATE (ER) 50 MG TAB.ER.24H PO SCH (09:56)
[2019-01-14] MEDS: CYANOCOBALAMIN 500 MCG TAB PO SCH (09:56)
[2019-01-14] MEDS: ASPIRIN 81 MG PO SCH (09:57)
[2019-01-14] MEDS: diphenhydrAMINE 25 MG CAP PO SCH (09:57)
--- NOTE | 2019-01-14 11:32 | P.PN ---
Subjective Progress Note Date: 01/14/19 Patient seen and evaluated at bedside. His HIDA scan showed biliary dyskinesis and he is now status post laparoscopic cholecystectomy. He reports minimal abdominal pain. He feels his breathing is stable and has been up in the chair today. Denies chest pain. Objective - Vital Signs Vital signs: Vital Signs Temp 98.0 F 01/14/19 07:22 Pulse 77 01/14/19 07:22 Resp 18 01/14/19 07:22 BP 134/72 01/14/19 07:22 Pulse Ox 96 01/14/19 07:22 Intake & Output 01/13/19 01/14/19 01/14/19 18:59 06:59 18:59 Intake Total 500 1033 500 Output Total 2960 150 Balance -2460 883 500 Weight 117.5 kg 115.8 kg Intake: IV 500 Oral 1033 500 Output: Urine 150 Hemodialysis 2950 Estimated Blood Loss 10 Other: Voiding Method Toilet - Exam Head: Normocephalic atraumatic Neck: Supple CV: Distant heart sounds, regular rate no murmur Lungs: Clear bilaterally Abdomen: Nontender surgical incisions without erythema Extremities: 1+ edema - Labs CBC & Chem 7: 01/14/19 07:52 01/14/19 07:52 Labs: Abnormal Lab Results - Last 24 Hours (Table) 01/13/19 01/13/19 01/13/19 Range/Units 11:09 12:40 14:39 RBC (4.30-5.90) m/uL Hgb 9.0 L (13.0-17.5) gm/dL Hct 30.2 L (39.0-53.0) % MCV 69.7 L (80.0-100.0) fL MCH 20.9 L (25.0-35.0) pg MCHC 30.0 L (31.0-37.0) g/dL RDW 20.7 H (11.5-15.5) % Plt Count 126 L (150-450) k/uL Lymphocytes # (1.0-4.8) k/uL Sodium (137-145) mmol/L Chloride (98-107) mmol/L Carbon Dioxide (22-30) mmol/L BUN (9-20) mg/dL Creatinine (0.66-1.25) mg/dL Glucose (74-99) mg/dL POC Glucose (mg/dL) 236 H 117 H (75-99) mg/dL Total Protein (6.3-8.2) g/dL 01/13/19 01/13/19 01/13/19 Range/Units 16:17 16:23 18:56 RBC (4.30-5.90) m/uL Hgb (13.0-17.5) gm/dL Hct (39.0-53.0) % MCV (80.0-100.0) fL MCH (25.0-35.0) pg MCHC (31.0-37.0) g/dL RDW (11.5-15.5) % Plt Count (150-450) k/uL Lymphocytes # (1.0-4.8) k/uL Sodium 135 L (137-145) mmol/L Chloride 94 L (98-107) mmol/L Carbon Dioxide 32 H (22-30) mmol/L BUN 21 H (9-20) mg/dL Creatinine 4.63 H (0.66-1.25) mg/dL Glucose 122 H (74-99) mg/dL POC Glucose (mg/dL) 136 H 199 H (75-99) mg/dL Total Protein (6.3-8.2) g/dL 01/13/19 01/14/19 01/14/19 Range/Units 21:19 06:48 07:52 RBC 4.27 L (4.30-5.90) m/uL Hgb 8.9 L (13.0-17.5) gm/dL Hct 30.2 L (39.0-53.0) % MCV 70.7 L (80.0-100.0) fL MCH 20.9 L (25.0-35.0) pg MCHC 29.6 L (31.0-37.0) g/dL RDW 20.6 H (11.5-15.5) % Plt Count 136 L (150-450) k/uL Lymphocytes # 0.9 L (1.0-4.8) k/uL Sodium (137-145) mmol/L Chloride (98-107) mmol/L Carbon Dioxide (22-30) mmol/L BUN (9-20) mg/dL Creatinine (0.66-1.25) mg/dL Glucose (74-99) mg/dL POC Glucose (mg/dL) 205 H 182 H (75-99) mg/dL Total Protein (6.3-8.2) g/dL 01/14/19 Range/Units 07:52 RBC (4.30-5.90) m/uL Hgb (13.0-17.5) gm/dL Hct (39.0-53.0) % MCV (80.0-100.0) fL MCH (25.0-35.0) pg MCHC (31.0-37.0) g/dL RDW (11.5-15.5) % Plt Count (150-450) k/uL Lymphocytes # (1.0-4.8) k/uL Sodium 134 L (137-145) mmol/L Chloride 95 L (98-107) mmol/L Carbon Dioxide (22-30) mmol/L BUN 29 H (9-20) mg/dL Creatinine 6.07 H (0.66-1.25) mg/dL Glucose 176 H (74-99) mg/dL POC Glucose (mg/dL) (75-99) mg/dL Total Protein 6.1 L (6.3-8.2) g/dL Assessment and Plan Assessment: 1. End-stage renal disease on hemodialysis. Nephrology following patient status post dialysis yesterday. Creatinine up to 6 today. Continue fluid restriction. 2. Abdominal pain. Possibly secondary to chronic cholecystitis. HIDA scan wit h evidence of biliary dyskinesia, patient now postop day 1 from laparoscopic cholecystectomy. He is on full liquid diet and reports good appetite. 3. Insulin-dependent type 2 diabetes. Continue home NovoLog and Humulin. 4. Essential hypertension. Continue home medications
[2019-01-14 11:38] LABS: Glucose,Whole Blood 198 mg/dL (75-99)
[2019-01-14] MEDS: INSULIN ASPART (NovoLOG) 100 UNIT/ML VIAL SQ SCH ×2 (13:14→17:19)
[2019-01-14] MEDS: MORPHINE SULFATE 4 MG/ML SYRINGE IV PRN ×2 (14:11→21:27)
--- NOTE | 2019-01-14 14:23 | P.PN ---
Subjective Progress Note Date: 01/14/19 Patient seen and examined at bedside. States he has some nausea today. Denies any emesis. States he does not have a significant amount of abdominal pain. Objective - Vital Signs Vital signs: Vital Signs Temp 98.1 F 01/14/19 12:00 Pulse 86 01/14/19 12:00 Resp 18 01/14/19 12:00 BP 122/65 01/14/19 12:00 Pulse Ox 96 01/14/19 12:00 Intake & Output 01/13/19 01/14/19 01/14/19 18:59 06:59 18:59 Intake Total 500 1033 740 Output Total 2960 150 Balance -2460 883 740 Weight 117.5 kg 115.8 kg Intake: IV 500 Oral 1033 740 Output: Urine 150 Hemodialysis 2950 Estimated Blood Loss 10 Other: Voiding Method Toilet Toilet # Voids 0 - Constitutional General appearance: Present: cooperative, no acute distress - EENT Eyes: Present: PERRLA - Gastrointestinal Gastrointestinal Comment(s): Soft, appropriate tenderness, nondistended, no rebound, no guarding, incision sites are clean, dry and intact - Psychiatric Psychiatric: Present: A&O x's 3 - Labs CBC & Chem 7: 01/14/19 07:52 01/14/19 07:52 Labs: Abnormal Lab Results - Last 24 Hours (Table) 01/13/19 01/13/19 01/13/19 Range/Units 14:39 16:17 16:23 RBC (4.30-5.90) m/uL Hgb (13.0-17.5) gm/dL Hct (39.0-53.0) % MCV (80.0-100.0) fL MCH (25.0-35.0) pg MCHC (31.0-37.0) g/dL RDW (11.5-15.5) % Plt Count (150-450) k/uL Lymphocytes # (1.0-4.8) k/uL Sodium 135 L (137-145) mmol/L Chloride 94 L (98-107) mmol/L Carbon Dioxide 32 H (22-30) mmol/L BUN 21 H (9-20) mg/dL Creatinine 4.63 H (0.66-1.25) mg/dL Glucose 122 H (74-99) mg/dL POC Glucose (mg/dL) 117 H 136 H (75-99) mg/dL Total Protein (6.3-8.2) g/dL 01/13/19 01/13/19 01/14/19 Range/Units 18:56 21:19 06:48 RBC (4.30-5.90) m/uL Hgb (13.0-17.5) gm/dL Hct (39.0-53.0) % MCV (80.0-100.0) fL MCH (25.0-35.0) pg MCHC (31.0-37.0) g/dL RDW (11.5-15.5) % Plt Count (150-450) k/uL Lymphocytes # (1.0-4.8) k/uL Sodium (137-145) mmol/L Chloride (98-107) mmol/L Carbon Dioxide (22-30) mmol/L BUN (9-20) mg/dL Creatinine (0.66-1.25) mg/dL Glucose (74-99) mg/dL POC Glucose (mg/dL) 199 H 205 H 182 H (75-99) mg/dL Total Protein (6.3-8.2) g/dL 01/14/19 01/14/19 01/14/19 Range/Units 07:52 07:52 11:36 RBC 4.27 L (4.30-5.90) m/uL Hgb 8.9 L (13.0-17.5) gm/dL Hct 30.2 L (39.0-53.0) % MCV 70.7 L (80.0-100.0) fL MCH 20.9 L (25.0-35.0) pg MCHC 29.6 L (31.0-37.0) g/dL RDW 20.6 H (11.5-15.5) % Plt Count 136 L (150-450) k/uL Lymphocytes # 0.9 L (1.0-4.8) k/uL Sodium 134 L (137-145) mmol/L Chloride 95 L (98-107) mmol/L Carbon Dioxide (22-30) mmol/L BUN 29 H (9-20) mg/dL Creatinine 6.07 H (0.66-1.25) mg/dL Glucose 176 H (74-99) mg/dL POC Glucose (mg/dL) 198 H (75-99) mg/dL Total Protein 6.1 L (6.3-8.2) g/dL Assessment and Plan Plan: 63-year-old male status post left scopic cholecystectomy, postoperative day #1 - Okay to advance to soft diet - Total bilirubin is 0.8 - I did recommend to stay away from fatty, fried and greasy foods - Local wound care
[2019-01-14 16:27] LABS: Glucose,Whole Blood 187 mg/dL (75-99)
[2019-01-14 19:47] LABS: Glucose,Whole Blood 186 mg/dL (75-99)
[2019-01-14] MEDS ORDERED: DARBEPOETIN ALFA 60 MCG/0.3 ML SYRINGE SQ SCH (20:00)
[2019-01-14] MEDS: INSULIN NPH 300 UNIT/3 ML VIAL SQ SCH (20:47)
[2019-01-14] MEDS: ATORVASTATIN 10 MG TAB PO SCH (20:47)
--- NOTE | 2019-01-14 21:24 | PN ---
PROGRESS NOTE Patient is seen for followup for end-stage renal disease. He is status post laparoscopic cholecystectomy. The patient is maintained on a Sunday, Sunday, Sunday schedule. He states he is feeling well. He will be due for dialysis tomorrow. PHYSICAL EXAMINATION: On examination, blood pressure this morning was 134/72, heart rate 77 per minute. He is afebrile. Examination of the heart S1, S2. Examination of the lungs, bilateral breath sounds are heard. Abdomen is soft, nontender, obese. Examination lower extremities shows no significant edema. PUBLICATION DESIGNER exam is grossly intact. LAB: Show hemoglobin 8.9, sodium 134, potassium 4.7. BUN 29, serum creatinine 6.07, hemoglobin 8.9. ASSESSMENT: 1. End-stage renal disease, on hemodialysis on a Sunday, Sunday, Sunday schedule and we will arrange for hemodialysis in a.m. 2. Status post laparoscopic cholecystectomy. 3. Anemia of chronic disease. We will maintain patient on Aranesp. No active bleeding noted. 4. Chronic kidney disease mineral bone disorder maintained on PhosLo. PLAN: Start patient on Aranesp and we will arrange for hemodialysis in a.m. Possible discharge tomorrow. MMODL / IJN: [id number] /
[2019-01-15] MEDS: MORPHINE SULFATE 4 MG/ML SYRINGE IV PRN ×2 (02:01→12:06)
[2019-01-15 02:10] LABS: Glucose,Whole Blood 130 mg/dL (75-99)
[2019-01-15] MEDS: LEVOTHYROXINE 100 MCG TAB PO SCH (06:05)
[2019-01-15 07:05] LABS: Glucose,Whole Blood 131 mg/dL (75-99)
[2019-01-15 07:51] LABS: Anisocytosis Slight; Basophils % (A) 1 %; Eosinophils # (A) 0.3 k/uL (0-0.7); Eosinophils % (A) 6 %; HCT 27.3 % (39.0-53.0); HGB 8.3 gm/dL (13.0-17.5); Hypochromasia Moderate; Lymphocytes # (A) 0.9 k/uL (1.0-4.8); Lymphocytes % (A) 19 %; MCH 20.7 pg (25.0-35.0); MCHC 30.5 g/dL (31.0-37.0); Mean Platelet Volume 6.9; Microcytosis Marked; Monocytes # (A) 0.3 k/uL (0-1.0); Monocytes % (A) 7 %; Neutrophils % (A) 64 %; Platelet Count 127 k/uL (150-450); Poikilocytosis Slight; RBC 4.02 m/uL (4.30-5.90); RDW 19.7 % (11.5-15.5); WBC 4.7 k/uL (3.8-10.6)
[2019-01-15 07:58] VITALS: RESP 16
[2019-01-15 08:19] LABS: Albumin 3.6 g/dL (3.5-5.0); Calcium 9.6 mg/dL (8.4-10.2); Potassium 4.6 mmol/L (3.5-5.1); Total Bilirubin 0.7 mg/dL (0.2-1.3); Total Protein 5.7 g/dL (6.3-8.2)
[2019-01-15] MEDS: CALCIUM ACETATE 667 MG CAP PO SCH ×2 (09:24→12:18)
[2019-01-15] MEDS: POLYETHYLENE GLYCOL 3350 17 GM POWD.PACK PO SCH (12:13)
[2019-01-15] MEDS: PANTOPRAZOLE 40 MG TABLET PO SCH (12:13)
[2019-01-15] MEDS: FOLIC ACID 1 MG TAB PO SCH (12:14)
[2019-01-15] MEDS: CYANOCOBALAMIN 500 MCG TAB PO SCH (12:15)
[2019-01-15] MEDS: INSULIN ASPART (NovoLOG) 100 UNIT/ML VIAL SQ SCH (12:15)
--- NOTE | 2019-01-15 12:32 | P.PN ---
Subjective Progress Note Date: 01/15/19 Patient seen and examined at bedside. States nausea has improved. Tolerated dinner and breakfast. No acute events. Abdominal pain well-controlled. Objective - Vital Signs Vital signs: Vital Signs Temp 97.5 F L 01/15/19 07:57 Pulse 79 01/15/19 07:57 Resp 16 01/15/19 07:57 BP 161/80 01/15/19 07:57 Pulse Ox 95 01/15/19 07:57 Intake & Output 01/14/19 01/15/19 01/15/19 18:59 06:59 18:59 Intake Total 980 1 280 Balance 980 1 280 Weight 116.8 kg Intake: Oral 980 1 280 Other: Voiding Method Toilet Toilet Toilet # Voids 0 1 - Constitutional General appearance: Present: cooperative, no acute distress - EENT Eyes: Present: PERRLA - Gastrointestinal Gastrointestinal Comment(s): Soft, appropriate tenderness, nondistended, no rebound, no guarding - Labs CBC & Chem 7: 01/15/19 06:49 01/15/19 06:49 Labs: Abnormal Lab Results - Last 24 Hours (Table) 01/14/19 01/14/19 01/15/19 Range/Units 16:25 19:45 02:08 RBC (4.30-5.90) m/uL Hgb (13.0-17.5) gm/dL Hct (39.0-53.0) % MCV (80.0-100.0) fL MCH (25.0-35.0) pg MCHC (31.0-37.0) g/dL RDW (11.5-15.5) % Plt Count (150-450) k/uL Lymphocytes # (1.0-4.8) k/uL Sodium (137-145) mmol/L Chloride (98-107) mmol/L BUN (9-20) mg/dL Creatinine (0.66-1.25) mg/dL Glucose (74-99) mg/dL POC Glucose (mg/dL) 187 H 186 H 130 H (75-99) mg/dL ALT (21-72) U/L Total Protein (6.3-8.2) g/dL 01/15/19 01/15/19 01/15/19 Range/Units 06:49 06:49 07:03 RBC 4.02 L (4.30-5.90) m/uL Hgb 8.3 L (13.0-17.5) gm/dL Hct 27.3 L (39.0-53.0) % MCV 68.0 L (80.0-100.0) fL MCH 20.7 L (25.0-35.0) pg MCHC 30.5 L (31.0-37.0) g/dL RDW 19.7 H (11.5-15.5) % Plt Count 127 L (150-450) k/uL Lymphocytes # 0.9 L (1.0-4.8) k/uL Sodium 135 L (137-145) mmol/L Chloride 94 L (98-107) mmol/L BUN 38 H (9-20) mg/dL Creatinine 8.57 H* (0.66-1.25) mg/dL Glucose 122 H (74-99) mg/dL POC Glucose (mg/dL) 131 H (75-99) mg/dL ALT 18 L (21-72) U/L Total Protein 5.7 L (6.3-8.2) g/dL Assessment and Plan Plan: 63-year-old male status post laparoscopic cholecystectomy, postoperative day #2 - Surgically stable for discharge - I did recommend to stay away from fatty, fried and greasy foods - Local wound care - f/u as outpt
[2019-01-15 12:47] LABS: Glucose,Whole Blood 159 mg/dL (75-99)
[2019-01-15] MEDS ORDERED: ONDANSETRON ODT 8 MG TAB.RAPDIS PO STA (13:10)
--- NOTE | 2019-01-15 13:37 | P.DS ---
Providers Date of admission: 01/13/19 06:15 Expected date of discharge: 01/15/19 Attending physician: Arcadio Chao MD Consults: 01/10/19 17:52 Consult Physician Routine Consulting Provider: Ney Dougherty Consult Reason/Comments: End-stage renal disease, fluid overload Do you want consulting provider notified?: Yes 01/12/19 10:27 Consult Physician Routine Consulting Provider: Kia Best Consult Reason/Comments: chronic cholecistitis Do you want consulting provider notified?: Yes Primary care physician: [facility] Course: Quoc Tompkins is a 63-year-old male, with PMH significant for ESRD on HD, T2DM, HTN who presented to [facility] with worsening shortness of breath. He reported feeling short of breath with even mild exertion. Pt also complained of abdominal pain which had been present for months and recently worsened. He has been on dialysis for the past 8 years. In the ED his O2 sat was in the 80s on RA with evidence of pulmonary congestion on CXR and elevated BNP. Patient was admitted to medical floor and nephrology was consulted to manage his fluid overload state. He underwent dialysis and his dyspnea improved with correction of his volume overload. Pt continued to complain of abdominal pain and outpatient US did show biliary sludge so Surgery was consulted and a HIDA scan ordered. HIDA demonstrated biliary dyskinesis and pt underwent laproscopic cholecystectomy on 01/13/19. He tolerated this well and his abdominal pain improved significantly following surgery. On day of discharge, pt's activity level has returned to his baseline without dyspnea, his abdominal pain is significantly improved and his vitals and labs are at baseline. He is discharged home and recommended to follow up with PCP within 1 week. Discharge Exam: Constitutional: well developed, well nourished, no apparent distress Head: normocephalic, atraumatic ENT: TMs clear, posterior pharynx without erythema Neck: supple, no thyromegaly Lungs: normal respiratory effort, no rales, rhonchi or wheezing CV: regular rate and rhythm, no murmur Abd: soft, nontender, non distended, no organomegaly Ext: trace edema Neuro: alert and oriented x3, CN II-XII intact Skin: warm and dry Pertinent Studies: HIDA scan Procedures: Laparoscopic Cholecystectomy Patient Condition at Discharge: Stable Plan - Discharge Summary Discharge Rx Participant: No New Discharge Prescriptions: Continue hydrALAZINE HCL 50 mg PO DAILY Atorvastatin [Lipitor] 10 mg PO HS Ergocalciferol (Vitamin D2) [Vitamin D2] 50,000 unit PO Q14D Aspirin [Adult Low Dose Aspirin EC] 81 mg PO DAILY Pyridoxine [Vitamin B-6] 100 mg PO DAILY diphenhydrAMINE [Benadryl] 25 mg PO DAILY Folic Acid 0.8 mg PO DAILY Metoprolol Succinate (ER) [Toprol XL] 50 mg PO DAILY Cyanocobalamin [Vitamin B-12] 500 mcg PO DAILY Furosemide [Lasix] 80 mg PO DAILY Calcium Acetate [PhosLo] 2,668 mg PO AC-TID Levothyroxine Sodium [Synthroid] 300 mcg PO DAILY INSULIN ASPART (NovoLOG) [NovoLOG (formulary)] 9 units SQ AC-BRKFST INSULIN ASPART (NovoLOG) [NovoLOG (formulary)] 12 unit SQ AC-LUNCH INSULIN ASPART (NovoLOG) [NovoLOG (formulary)] 12 unit SQ AC-SUPPER Insulin NPH Human Isophane [NovoLIN N] 16 unit SQ HS Polyethylene Glycol 3350 [Miralax] 17 gm PO DAILY Dicyclomine [Bentyl] 20 mg PO QID Omeprazole 20 mg PO BID Discharge Medication List Aspirin [Adult Low Dose Aspirin EC] 81 mg PO DAILY 10/23/16 [History] Atorvastatin [Lipitor] 10 mg PO HS 10/23/16 [History] Ergocalciferol (Vitamin D2) [Vitamin D2] 50,000 unit PO Q14D 10/23/16 [History] hydrALAZINE HCL 50 mg PO DAILY 10/23/16 [History] Pyridoxine [Vitamin B-6] 100 mg PO DAILY 08/29/17 [History] diphenhydrAMINE [Benadryl] 25 mg PO DAILY 08/29/17 [History] Folic Acid 0.8 mg PO DAILY 12/07/17 [History] Metoprolol Succinate (ER) [Toprol XL] 50 mg PO DAILY 05/08/18 [History] Calcium Acetate [PhosLo] 2,668 mg PO AC-TID 09/12/18 [History] Cyanocobalamin [Vitamin B-12] 500 mcg PO DAILY 09/12/18 [History] Furosemide [Lasix] 80 mg PO DAILY 09/12/18 [History] Levothyroxine Sodium [Synthroid] 300 mcg PO DAILY 10/25/18 [History] INSULIN ASPART (NovoLOG) [NovoLOG (formulary)] 9 units SQ AC-BRKFST 10/30/18 [History] INSULIN ASPART (NovoLOG) [NovoLOG (formulary)] 12 unit SQ AC-LUNCH 10/30/18 [History] INSULIN ASPART (NovoLOG) [NovoLOG (formulary)] 12 unit SQ AC-SUPPER 10/30/18 [History] Insulin NPH Human Isophane [NovoLIN N] 16 unit SQ HS 10/30/18 [History] Dicyclomine [Bentyl] 20 mg PO QID 12/10/18 [History] Polyethylene Glycol 3350 [Miralax] 17 gm PO DAILY 12/10/18 [History] Omeprazole 20 mg PO BID 01/10/19 [History] Follow up Appointment(s)/Referral(s): Jazmin Castaneda MD [Primary Care Provider] - 01/21/19 2:45 pm (Office didn't have a morning appointment available this day) Kia Best DO [Doctor of Osteopathic Medicine] - 2 Weeks Esteban Menjivar MD [STAFF PHYSICIAN] - 03/11/19 10:30 am Discharge Disposition: HOME SELF-CARE
[2019-01-15] MEDS: ASPIRIN 81 MG PO SCH (14:18)
[2019-01-15] MEDS: FUROSEMIDE 80 MG TAB PO SCH (14:19)
[2019-01-15] MEDS: diphenhydrAMINE 25 MG CAP PO SCH (14:19)
[2019-01-15] MEDS: DICYCLOMINE 20 MG TAB PO SCH (14:19)
[2019-01-15] MEDS: hydrALAZINE HCL 50 MG TAB PO SCH (14:20)
[2019-01-15] MEDS: METOPROLOL SUCCINATE (ER) 50 MG TAB.ER.24H PO SCH (14:21)
[2019-01-15] MEDS: PYRIDOXINE 50 MG TAB PO SCH (14:22)
[2019-01-15 15:11] VITALS: BP 136/68; PULSE 97; TEMP 97.3
== END 2019-01-15 14:54 | disposition home or self-care (01) | DRG 987 ==
LOC: EC 14:47 → 3SCARD 17:51 → INTOOBSV 17:51 → 4SSUR 01-13 01:17 → OBSVTOIN 01-13 06:15
PROVIDERS: ADMIT Family Medicine; ATTEND Family Medicine
PROC: 5A1D70Z Performance of Urinary Filtration, Intermittent, Less than 6 Hours Per Day (ICD-10-PCS; 2019-01-11)
PROC: 0FT44ZZ Resection of Gallbladder, Percutaneous Endoscopic Approach (ICD-10-PCS; principal; 2019-01-13 17:00)
DX: I13.2 Hypertensive heart and chronic kidney disease with heart failure and with stage 5 chronic kidney disease, or end stage renal disease (principal); N18.6 End stage renal disease; K80.10 Calculus of gallbladder with chronic cholecystitis without obstruction; D63.1 Anemia in chronic kidney disease; E11.22 Type 2 diabetes mellitus with diabetic chronic kidney disease; E11.319 Type 2 diabetes mellitus with unspecified diabetic retinopathy without macular edema; E78.00 Pure hypercholesterolemia, unspecified; E78.5 Hyperlipidemia, unspecified; E88.89 Other specified metabolic disorders; G89.29 Other chronic pain; I50.9 Heart failure, unspecified; K29.70 Gastritis, unspecified, without bleeding; K29.80 Duodenitis without bleeding; K57.30 Diverticulosis of large intestine without perforation or abscess without bleeding; M89.9 Disorder of bone, unspecified; R09.02 Hypoxemia; Z79.4 Long term (current) use of insulin; Z79.82 Long term (current) use of aspirin; Z79.890 Hormone replacement therapy; Z79.899 Other long term (current) drug therapy; Z82.49 Family history of ischemic heart disease and other diseases of the circulatory system; Z87.891 Personal history of nicotine dependence; Z95.5 Presence of coronary angioplasty implant and graft; Z99.2 Dependence on renal dialysis
CPT/HCPCS: 36415; 71046; 78227; 80048; 80053; 82150; 83036; 83690; 83735; 83880; 84484; 85025; 85610; 85730; 88304; 90935; 93005; 96374; 99285

== ENCOUNTER 2019-01-15 20:38 | Emergency (ER) | payer MEDICARE, BC ==
[2019-01-15 20:51] VITALS: RESP 18
[2019-01-15] MEDS ORDERED: MORPHINE SULFATE 2 MG/ML SYRINGE IVP STA ×2 (21:12→22:43)
[2019-01-15 22:39] LABS: Anisocytosis Moderate; Basophils # (A) 0.1 k/uL (0-0.2); Basophils % (A) 1 %; Eosinophils # (A) 0.3 k/uL (0-0.7); Eosinophils % (A) 5 %; HCT 30.4 % (39.0-53.0); HGB 9.3 gm/dL (13.0-17.5); Hypochromasia Marked; Lymphocytes # (A) 0.8 k/uL (1.0-4.8); Lymphocytes % (A) 13 %; MCH 21.3 pg (25.0-35.0); MCHC 30.5 g/dL (31.0-37.0); MCV 69.8 fL (80.0-100.0); Mean Platelet Volume 7.6; Microcytosis Marked; Monocytes # (A) 0.5 k/uL (0-1.0); Monocytes % (A) 8 %; Neutrophils # (A) 4.1 k/uL (1.3-7.7); Neutrophils % (A) 70 %; Platelet Count 141 k/uL (150-450); Poikilocytosis Moderate; RBC 4.36 m/uL (4.30-5.90); RDW 20.5 % (11.5-15.5); WBC 5.8 k/uL (3.8-10.6)
[2019-01-15 22:54] LABS: Calcium 9.6 mg/dL (8.4-10.2); Potassium 4.4 mmol/L (3.5-5.1); Total Bilirubin 0.7 mg/dL (0.2-1.3); Total Protein 6.2 g/dL (6.3-8.2)
--- NOTE | 2019-01-15 23:04 | ED ---
Abdominal Pain HPI - General Chief Complaint: Abdominal Pain Stated Complaint: Abd Pain Time Seen by Provider: 01/15/19 20:55 Source: patient Mode of arrival: wheelchair Limitations: no limitations - History of Present Illness Initial Comments: 63yo male with history of chronic kidney disease on dialysis with recent cholecystectomy performed 01/13/[address] Szymanski present today for chief complaint abdominal pain. Patient states he received a cholecystectomy secondary to spirits hitting a dull pain after dialysis for the past year. He states that they're unsure of the cause. Patient states that he had dialysis at 2:30PM he states he was discharged around 3:00 today from hospital status post cholecystectomy. Patient states he Rates much pain in the hospital he states that upon discharge he had developed pain that is identical to the pain he experienced after dialysis for the past year. He presents emergency department for management. Patient denies fever doesn't chest pain shortness of breath patient denies any vomiting or diarrhea. Remaining review of systems negative upon arrival patient's vital signs within acceptable limits patient appears well - Related Data Home Medications Medication Instructions Recorded Confirmed Aspirin [Adult Low Dose Aspirin EC] 81 mg PO DAILY 10/23/16 01/15/19 Atorvastatin [Lipitor] 10 mg PO HS 10/23/16 01/15/19 Ergocalciferol (Vitamin D2) 50,000 unit PO Q14D 10/23/16 01/15/19 [Vitamin D2] hydrALAZINE HCL 50 mg PO DAILY 10/23/16 01/15/19 Pyridoxine [Vitamin B-6] 100 mg PO DAILY 08/29/17 01/15/19 diphenhydrAMINE [Benadryl] 25 mg PO DAILY 08/29/17 01/15/19 Folic Acid 0.8 mg PO DAILY 12/07/17 01/15/19 Metoprolol Succinate (ER) [Toprol 50 mg PO DAILY 05/08/18 01/15/19 XL] Calcium Acetate [PhosLo] 2,668 mg PO AC-TID 09/12/18 01/15/19 Cyanocobalamin [Vitamin B-12] 500 mcg PO DAILY 09/12/18 01/15/19 Furosemide [Lasix] 80 mg PO DAILY 09/12/18 01/15/19 Levothyroxine Sodium [Synthroid] 300 mcg PO DAILY 10/25/18 01/15/19 INSULIN ASPART (NovoLOG) [NovoLOG 9 units SQ AC-BRKFST 10/30/18 01/15/19 (formulary)] INSULIN ASPART (NovoLOG) [NovoLOG 12 unit SQ AC-LUNCH 10/30/18 01/15/19 (formulary)] INSULIN ASPART (NovoLOG) [NovoLOG 12 unit SQ AC-SUPPER 10/30/18 01/15/19 (formulary)] Insulin NPH Human Isophane 16 unit SQ HS 10/30/18 01/15/19 [NovoLIN N] Dicyclomine [Bentyl] 20 mg PO QID 12/10/18 01/15/19 Polyethylene Glycol 3350 [Miralax] 17 gm PO DAILY 12/10/18 01/15/19 Pantoprazole Sodium [Protonix] 40 mg PO DAILY 01/15/19 01/15/19 Allergies Allergy/AdvReac Type Severity Reaction Status Date / Time No Known Allergies Allergy Verified 01/15/19 21:05 Review of Systems ROS Statement: Those systems with pertinent positive or pertinent negative responses have been documented in the HPI. ROS Other: All systems not noted in ROS Statement are negative. Past Medical History Past Medical History: Heart Failure, Diabetes Mellitus, Dialysis, Hyperlipidemia, Hypertension, Renal Disease Additional Past Medical History / Comment(s): 50 ounces fluid restrictions per day.ESRD with hemodailysis MWF- abdominal pain/nausea, hyperkalemia, chronic anemia, IDDM type II, neuropathy bilateral feet, bilateral eye retinopathy and leaking vessel behind R eye and recently told also now behind L eye, past R great toe diabetic ulcer which was healed thru [facility] History of Any Multi-Drug Resistant Organisms: None Reported Past Surgical History: Cholecystectomy, Heart Catheterization With Stent, Joint Replacement, Orthopedic Surgery Additional Past Surgical History / Comment(s): PCI with stent in 2008, L arm graft for dialysis, R eye injections/laser surgery, R knee plate with screws, R total hip, 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 Past Anesthesia/Blood Transfusion Reactions: No Reported Reaction Additional Past Anesthesia/Blood Transfusion Reaction / Comment(s): Pt states he has woken during surgeries in the past. Date of Last Stent Placement:: 2008 Past Psychological History: No Psychological Hx Reported Smoking Status: Former smoker Past Alcohol Use History: None Reported Past Drug Use History: None Reported - Past Family History Mother Family Medical History: Congestive Heart Failure (CHF) Additional Family Medical History / Comment(s): Mother lived to be 89 yrs old. Father Family Medical History: Congestive Heart Failure (CHF) Additional Family Medical History / Comment(s): Father lived to be 93 yrs old. Brother(s) Family Medical History: Congestive Heart Failure (CHF) Additional Family Medical History / Comment(s): Brother at the age of 67yrs. General Exam - General Exam Comments Initial Comments: General: The patient is awake and alert, in no distress Eye: +3 mm pupils are equal, round and reactive to light, extra-ocular movements are intact. No nystagmus. There is normal conjunctiva bilaterally. No signs of icterus. Ears, nose, mouth and throat: There are moist mucous membranes and no oral lesions. Neck: The neck is supple, there is no tenderness or JVD. Cardiovascular: There is a regular rate and rhythm. No murmur, rub or gallop is appreciated. Respiratory: Lungs are clear to auscultation, respirations are non-labored, breath sounds are equal. No wheezes, stridor, rales, or rhonchi. Gastrointestinal: Soft, non-distended, non-tender abdomen without masses or org anomegaly noted. There is no rebound or guarding present. No CVA tenderness. Bowel sounds are unremarkable. Musculoskeletal: Normal ROM, no tenderness. Strength 5/5. Sensation intact. Pulses equal bilaterally 2+. Neurological: A&O x 3. CN II-XII intact, There are no obvious motor or sensory deficits. Coordination appears grossly intact. Speech is normal. Skin: Skin is warm and dry and no rashes or lesions are noted. 4 incision noted, glue in place no dehiscence. No bleeding. Areas f decreased pigmentation from head to toe in random pattern on exam. Psychiatric: Cooperative, appropriate mood & affect, normal judgment. Limitations: no limitations Course Vital Signs 01/15/19 01/15/19 20:48 23:12 Temperature 98.6 F 97.7 F Pulse Rate 98 95 Respiratory 18 18 Rate Blood Pressure 124/79 124/72 O2 Sat by Pulse 97 99 Oximetry Medical Decision Making - Medical Decision Making Well-appearing 63-year-old male complaining of abdominal pain fits is identical to the pain he's been experiencing the past after dialysis. Patient had dialysis at 2:30. Patient is due to after cholecystectomy. Patient had no significant abdominal pain on examination. Patient states it is "internal" feeling. He states is identical to his pain that had initially caused the cholecystectomy. Patient hemoglobin stable. No elevation of transaminases. Alk phos within acceptable limits. Patient is a febrile vital signs within acceptable limits. I did contact patient's surgeon Dr. szymanski speaking with his certified juvenile probation officer partner Dr. Tompkins who is agreeable [facility] discharge if patient VS stable and laboratory studies within acceptable limits. Patient was discharged. We will discuss the case with my attending provider Dr. ruiz. He is agreeable care plan and discharge as well as instruction to follow-up with Dr. Szymanski and office. Patient states he is ready to go home. Patient was discharged appearing well - Lab Data Result diagrams: 01/15/19 21:35 01/15/19 21:35 Lab Results 01/15/19 01/15/19 Range/Units 21:35 21:35 WBC 5.8 (3.8-10.6) k/uL RBC 4.36 (4.30-5.90) m/uL Hgb 9.3 L (13.0-17.5) gm/dL Hct 30.4 L (39.0-53.0) % MCV 69.8 L (80.0-100.0) fL MCH 21.3 L (25.0-35.0) pg MCHC 30.5 L (31.0-37.0) g/dL RDW 20.5 H (11.5-15.5) % Plt Count 141 L (150-450) k/uL Neutrophils % 70 % Lymphocytes % 13 % Monocytes % 8 % Eosinophils % 5 % Basophils % 1 % Neutrophils # 4.1 (1.3-7.7) k/uL Lymphocytes # 0.8 L (1.0-4.8) k/uL Monocytes # 0.5 (0-1.0) k/uL Eosinophils # 0.3 (0-0.7) k/uL Basophils # 0.1 (0-0.2) k/uL Hypochromasia Marked Poikilocytosis Moderate Anisocytosis Moderate Microcytosis Marked Sodium 132 L (137-145) mmol/L Potassium 4.4 (3.5-5.1) mmol/L Chloride 93 L (98-107) mmol/L Carbon Dioxide 28 (22-30) mmol/L Anion Gap 11 mmol/L BUN 24 H (9-20) mg/dL Creatinine 5.22 H (0.66-1.25) mg/dL Est GFR (CKD-EPI)AfAm 12 (>60 ml/min/1.73 sqM) Est GFR (CKD-EPI)NonAf 11 (>60 ml/min/1.73 sqM) Glucose 308 H (74-99) mg/dL Calcium 9.6 (8.4-10.2) mg/dL Total Bilirubin 0.7 (0.2-1.3) mg/dL AST 42 (17-59) U/L ALT 13 L (21-72) U/L Alkaline Phosphatase 127 H (38-126) U/L Total Protein 6.2 L (6.3-8.2) g/dL Albumin 4.0 (3.5-5.0) g/dL Disposition Clinical Impression: Abdominal pain Disposition: HOME SELF-CARE Condition: Good Instructions (If sedation given, give patient instructions): Abdominal Pain (ED) Additional Instructions: Please use medication as discussed. Please follow-up with general surgery as scheduled. Please return to emergency room if the symptoms increase or worsen or for any other concerns. Is patient prescribed a controlled substance at d/c from ED?: No Referrals: Jazmin Castaneda MD [Primary Care Provider] - 1-2 days Kia Szymanski DO [Doctor of Osteopathic Medicine] - 1-2 days Time of Disposition: 23:04
[2019-01-15 23:13] VITALS: BP 124/72; PULSE 95; TEMP 97.7
== END 2019-01-15 23:27 | disposition home or self-care (01) ==
LOC: EC 20:38
DX: R10.9 Unspecified abdominal pain (principal); R50.9 Fever, unspecified; L81.9 Disorder of pigmentation, unspecified; I13.2 Hypertensive heart and chronic kidney disease with heart failure and with stage 5 chronic kidney disease, or end stage renal disease; I50.9 Heart failure, unspecified; N18.6 End stage renal disease; E11.22 Type 2 diabetes mellitus with diabetic chronic kidney disease; E11.42 Type 2 diabetes mellitus with diabetic polyneuropathy; E11.319 Type 2 diabetes mellitus with unspecified diabetic retinopathy without macular edema; D63.1 Anemia in chronic kidney disease; E78.5 Hyperlipidemia, unspecified; Z87.891 Personal history of nicotine dependence; Z79.4 Long term (current) use of insulin; Z79.82 Long term (current) use of aspirin; Z79.890 Hormone replacement therapy; Z79.899 Other long term (current) drug therapy; Z99.2 Dependence on renal dialysis; Z95.5 Presence of coronary angioplasty implant and graft; Z96.641 Presence of right artificial hip joint; Z90.49 Acquired absence of other specified parts of digestive tract
CPT/HCPCS: 36415; 80053; 85025; 99284; 96374; 96376; J2270

== ENCOUNTER 2019-02-24 02:43 | Emergency (ER) | payer MEDICARE, BC ==
[2019-02-24] MEDS ORDERED: MORPHINE SULFATE 4 MG/ML SYRINGE IM STA ×2 (03:14→04:09)
[2019-02-24 04:22] VITALS: BP 150/83; PULSE 73; RESP 19; TEMP 97.5
--- NOTE | 2019-02-24 04:41 | ED ---
Abdominal Pain HPI - General Chief Complaint: Abdominal Pain Stated Complaint: Abd Pain Time Seen by Provider: 02/24/19 02:56 Source: patient Mode of arrival: ambulatory Limitations: no limitations - History of Present Illness Initial Comments: Patient is 63-year-old man presenting for evaluation of abdominal pain that is been going on for many months intermittently. Patient states it tends come on after his dialysis session and is usually crampy intermittent pain diffusely throughout the abdomen. Today's pain is no different. No vomiting or diarrhea. No fever or chills. MD Complaint: abdominal pain -: hour(s) Location: periumbilical Radiation: none Migration to: no migration Severity: moderate Quality: cramping Consistency: intermittent Improves With: nothing Worsens With: nothing Associated Symptoms: denies other symptoms - Related Data Home Medications Medication Instructions Recorded Confirmed Aspirin [Adult Low Dose Aspirin EC] 81 mg PO DAILY 10/23/16 02/27/19 Atorvastatin [Lipitor] 10 mg PO HS 10/23/16 02/27/19 Ergocalciferol (Vitamin D2) 50,000 unit PO Q14D 10/23/16 02/27/19 [Vitamin D2] Pyridoxine [Vitamin B-6] 100 mg PO DAILY 08/29/17 02/27/19 diphenhydrAMINE [Benadryl] 25 mg PO BID 08/29/17 02/27/19 Folic Acid 0.8 mg PO DAILY 12/07/17 02/27/19 Metoprolol Succinate (ER) [Toprol 50 mg PO DAILY 05/08/18 02/27/19 XL] Calcium Acetate [PhosLo] 2,668 mg PO AC-TID 09/12/18 02/27/19 Cyanocobalamin [Vitamin B-12] 500 mcg PO DAILY 09/12/18 02/27/19 Furosemide [Lasix] 80 mg PO DAILY 09/12/18 02/27/19 Levothyroxine Sodium [Synthroid] 300 mcg PO DAILY 10/25/18 02/27/19 INSULIN ASPART (NovoLOG) [NovoLOG 9 units SQ AC-BRKFST 10/30/18 02/27/19 (formulary)] INSULIN ASPART (NovoLOG) [NovoLOG 12 unit SQ AC-LUNCH 10/30/18 02/27/19 (formulary)] INSULIN ASPART (NovoLOG) [NovoLOG 12 unit SQ AC-SUPPER 10/30/18 02/27/19 (formulary)] Insulin NPH Human Isophane 14 unit SQ BID 10/30/18 02/27/19 [NovoLIN N] Polyethylene Glycol 3350 [Miralax] 17 gm PO DAILY 12/10/18 02/27/19 Dicyclomine [Bentyl] 20 mg PO QID 02/27/19 02/27/19 Omeprazole [PriLOSEC] 20 mg PO AC-BID 02/27/19 02/27/19 traMADol HCL [Ultram] 50 mg PO BID PRN 02/27/19 02/27/19 Previous Rx's Medication Instructions Recorded hydrALAZINE HCL [Apresoline] 25 mg PO BID #60 tab 03/03/19 Allergies Allergy/AdvReac Type Severity Reaction Status Date / Time No Known Allergies Allergy Verified 02/27/19 20:21 Review of Systems ROS Statement: Those systems with pertinent positive or pertinent negative responses have been documented in the HPI. ROS Other: All systems not noted in ROS Statement are negative. Constitutional: Denies: fever, chills Respiratory: Denies: cough, dyspnea Cardiovascular: Denies: chest pain, palpitations, edema Gastrointestinal: Reports: abdominal pain. Denies: nausea, vomiting, diarrhea, constipation Musculoskeletal: Denies: back pain Skin: Denies: rash Neurological: Denies: weakness Past Medical History Past Medical History: Heart Failure, Diabetes Mellitus, Dialysis, Hyperlipidemia, Hypertension, Renal Disease Additional Past Medical History / Comment(s): 50 ounces fluid restrictions per day.ESRD with hemodailysis MWF- abdominal pain/nausea, hyperkalemia, chronic anemia, IDDM type II, neuropathy bilateral feet, bilateral eye retinopathy and leaking vessel behind R eye and recently told also now behind L eye, past R great toe diabetic ulcer which was healed thru 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 Past Anesthesia/Blood Transfusion Reactions: No Reported Reaction Additional Past Anesthesia/Blood Transfusion Reaction / Comment(s): Pt states he has woken during surgeries in the past. Date of Last Stent Placement:: 2008 Past Psychological History: No Psychological Hx Reported Smoking Status: Former smoker Past Alcohol Use History: None Reported Past Drug Use History: None Reported - Past Family History Mother Family Medical History: Congestive Heart Failure (CHF) Additional Family Medical History / Comment(s): Mother lived to be 89 yrs old. Father Family Medical History: Congestive Heart Failure (CHF) Additional Family Medical History / Comment(s): Father lived to be 93 yrs old. Brother(s) Family Medical History: Congestive Heart Failure (CHF) Additional Family Medical History / Comment(s): Brother at the age of 67yrs. General Exam Limitations: no limitations General appearance: alert, in no apparent distress Head exam: Present: atraumatic, normocephalic Eye exam: Present: normal appearance Respiratory exam: Present: normal lung sounds bilaterally. Absent: respiratory distress, wheezes, rales, rhonchi, stridor Cardiovascular Exam: Present: regular rate, normal rhythm, normal heart sounds. Absent: systolic murmur, diastolic murmur, rubs, gallop GI/Abdominal exam: Present: soft, normal bowel sounds. Absent: distended, t enderness, guarding, rebound, rigid, mass, pulsatile mass, hernia Extremities exam: Present: normal inspection, normal capillary refill. Absent: pedal edema, calf tenderness Back exam: Present: normal inspection Skin exam: Present: warm, dry, intact, normal color. Absent: rash Course Vital Signs 02/24/19 02/24/19 02:44 04:21 Temperature 97.7 F 97.5 F L Pulse Rate 75 73 Respiratory 18 19 Rate Blood Pressure 151/85 150/83 O2 Sat by Pulse 98 98 Oximetry Disposition Clinical Impression: Abdominal pain Disposition: HOME SELF-CARE Condition: Fair Instructions (If sedation given, give patient instructions): Abdominal Pain (ED) Is patient prescribed a controlled substance at d/c from ED?: No Referrals: Jazmin Castaneda MD [Primary Care Provider] - 1-2 days
== END 2019-02-24 04:52 | disposition home or self-care (01) ==
LOC: EC 02:43
DX: R10.33 Periumbilical pain (principal); E78.5 Hyperlipidemia, unspecified; E11.22 Type 2 diabetes mellitus with diabetic chronic kidney disease; E11.40 Type 2 diabetes mellitus with diabetic neuropathy, unspecified; E11.319 Type 2 diabetes mellitus with unspecified diabetic retinopathy without macular edema; I13.2 Hypertensive heart and chronic kidney disease with heart failure and with stage 5 chronic kidney disease, or end stage renal disease; I50.9 Heart failure, unspecified; N18.6 End stage renal disease; Z79.4 Long term (current) use of insulin; Z79.82 Long term (current) use of aspirin; Z79.890 Hormone replacement therapy; Z79.899 Other long term (current) drug therapy; Z87.891 Personal history of nicotine dependence; Z99.2 Dependence on renal dialysis; Z95.5 Presence of coronary angioplasty implant and graft; Z90.49 Acquired absence of other specified parts of digestive tract; Z96.641 Presence of right artificial hip joint
CPT/HCPCS: 99284 ×2; 96372 ×3; J2270; 96374

== ENCOUNTER 2019-02-27 19:54 | Inpatient (IN) | payer MEDICARE, BC ==
--- NOTE | 2019-02-27 20:09 | ED ---
General Adult HPI - General Chief complaint: Chest Pain Stated complaint: Chest pain, SOB Time Seen by Provider: 02/27/19 20:01 Source: patient, family, RN notes reviewed Mode of arrival: wheelchair Limitations: no limitations - History of Present Illness Initial comments: Patient is a pleasant 63-year-old male presenting to the emergency Department with dyspnea and chest discomfort. Onset of symptoms was just a couple hours ago. Patient does have cough. Patient has chest congestion however cough is been nonproductive. Patient feels short of breath. Patient does have leg swelling which is increased from normal. Patient does have a history of similar symptoms previously associated with CHF. Patient also has some left sternal chest pressure. Discomfort is 3 or 4/10. No associated nausea or vomiting or diaphoresis. No calf pain. - Related Data Home Medications Medication Instructions Recorded Confirmed Aspirin [Adult Low Dose Aspirin EC] 81 mg PO DAILY 10/23/16 02/27/19 Atorvastatin [Lipitor] 10 mg PO HS 10/23/16 02/27/19 Ergocalciferol (Vitamin D2) 50,000 unit PO Q14D 10/23/16 02/27/19 [Vitamin D2] hydrALAZINE HCL 50 mg PO DAILY 10/23/16 02/27/19 Pyridoxine [Vitamin B-6] 100 mg PO DAILY 08/29/17 02/27/19 diphenhydrAMINE [Benadryl] 25 mg PO BID 08/29/17 02/27/19 Folic Acid 0.8 mg PO DAILY 12/07/17 02/27/19 Metoprolol Succinate (ER) [Toprol 50 mg PO DAILY 05/08/18 02/27/19 XL] Calcium Acetate [PhosLo] 2,668 mg PO AC-TID 09/12/18 02/27/19 Cyanocobalamin [Vitamin B-12] 500 mcg PO DAILY 09/12/18 02/27/19 Furosemide [Lasix] 80 mg PO DAILY 09/12/18 02/27/19 Levothyroxine Sodium [Synthroid] 300 mcg PO DAILY 10/25/18 02/27/19 INSULIN ASPART (NovoLOG) [NovoLOG 9 units SQ AC-BRKFST 10/30/18 02/27/19 (formulary)] INSULIN ASPART (NovoLOG) [NovoLOG 12 unit SQ AC-LUNCH 10/30/18 02/27/19 (formulary)] INSULIN ASPART (NovoLOG) [NovoLOG 12 unit SQ AC-SUPPER 10/30/18 02/27/19 (formulary)] Insulin NPH Human Isophane 14 unit SQ BID 10/30/18 02/27/19 [NovoLIN N] Polyethylene Glycol 3350 [Miralax] 17 gm PO DAILY 12/10/18 02/27/19 Dicyclomine [Bentyl] 20 mg PO QID 02/27/19 02/27/19 Omeprazole [PriLOSEC] 20 mg PO AC-BID 02/27/19 02/27/19 traMADol HCL [Ultram] 50 mg PO BID PRN 02/27/19 02/27/19 Allergies Allergy/AdvReac Type Severity Reaction Status Date / Time No Known Allergies Allergy Verified 02/27/19 20:21 Review of Systems ROS Statement: Those systems with pertinent positive or pertinent negative responses have been documented in the HPI. ROS Other: All systems not noted in ROS Statement are negative. Constitutional: Denies: fever Eyes: Denies: eye pain ENT: Denies: ear pain Respiratory: Reports: cough, dyspnea Cardiovascular: Reports: chest pain Endocrine: Reports: fatigue Gastrointestinal: Denies: abdominal pain Genitourinary: Denies: dysuria Musculoskeletal: Denies: back pain Skin: Denies: rash Neurological: Denies: weakness Past Medical History Past Medical History: Heart Failure, Diabetes Mellitus, Dialysis, Hyperlipidemia, Hypertension, Renal Disease Additional Past Medical History / Comment(s): 50 ounces fluid restrictions per day.ESRD with hemodailysis MWF- abdominal pain/nausea, hyperkalemia, chronic anemia, IDDM type II, neuropathy bilateral feet, bilateral eye retinopathy and leaking vessel behind R eye and recently told also now behind L eye, past R gr eat toe diabetic ulcer which was healed thru [facility] History of Any Multi-Drug Resistant Organisms: None Reported Past Surgical History: Cholecystectomy, Heart Catheterization With Stent, Joint Replacement, Orthopedic Surgery Additional Past Surgical History / Comment(s): PCI with stent in 2008, L arm graft for dialysis, R eye injections/laser surgery, R knee plate with screws, R total hip, 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 Past Anesthesia/Blood Transfusion Reactions: No Reported Reaction Additional Past Anesthesia/Blood Transfusion Reaction / Comment(s): Pt states he has woken during surgeries in the past. Date of Last Stent Placement:: 2008 Past Psychological History: No Psychological Hx Reported Smoking Status: Former smoker Past Alcohol Use History: None Reported Past Drug Use History: None Reported - Past Family History Mother Family Medical History: Congestive Heart Failure (CHF) Additional Family Medical History / Comment(s): Mother lived to be 89 yrs old. Father Family Medical History: Congestive Heart Failure (CHF) Additional Family Medical History / Comment(s): Father lived to be 93 yrs old. Brother(s) Family Medical History: Congestive Heart Failure (CHF) Additional Family Medical History / Comment(s): Brother at the age of 67yrs. General Exam Limitations: no limitations General appearance: alert, in no apparent distress, obese Head exam: Present: atraumatic Eye exam: Present: normal appearance, PERRL ENT exam: Present: normal oropharynx Neck exam: Present: normal inspection Respiratory exam: Present: rales (Right base) Cardiovascular Exam: Present: regular rate, normal rhythm Expanded Peripheral pulses: 2+: Radial (R), Radial (L), Dorsalis Pedis (R), Dorsalis Pedis (L) GI/Abdominal exam: Present: soft. Absent: tenderness Extremities exam: Present: pedal edema. Absent: calf tenderness Neurological exam: Present: alert Psychiatric exam: Present: normal affect, normal mood Skin exam: Present: normal color Course Vital Signs 02/27/19 02/27/19 19:57 21:18 Temperature 100.0 F H Pulse Rate 92 96 Respiratory 18 24 Rate Blood Pressure 164/87 160/96 O2 Sat by Pulse 89 L 90 L Oximetry EKG Findings - EKG Comments: EKG Findings:: Normal sinus rhythm 97. VT 150. QRS 116. QT 360. QTC 457. Left axis. Normal QRS. No acute ST change. Medical Decision Making - Medical Decision Making reevaluated. Patient and family updated. Case was discussed with Dr. Bishop, covering for Dr. Castaneda, who will admit. Admission orders written. Nitroglycerin drip started. - Lab Data Result diagrams: 02/27/19 20:30 02/27/19 20:30 Lab Results 02/27/19 02/27/19 02/27/19 Range/Units 20:30 20:30 20:30 WBC 8.1 (3.8-10.6) k/uL RBC 4.32 (4.30-5.90) m/uL Hgb 9.3 L (13.0-17.5) gm/dL Hct 30.5 L (39.0-53.0) % MCV 70.6 L (80.0-100.0) fL MCH 21.5 L (25.0-35.0) pg MCHC 30.5 L (31.0-37.0) g/dL RDW 21.3 H (11.5-15.5) % Plt Count 146 L (150-450) k/uL Neutrophils % 68 % Lymphocytes % 17 % Monocytes % 5 % Eosinophils % 7 % Basophils % 1 % Neutrophils # 5.5 (1.3-7.7) k/uL Lymphocytes # 1.4 (1.0-4.8) k/uL Monocytes # 0.4 (0-1.0) k/uL Eosinophils # 0.5 (0-0.7) k/uL Basophils # 0.0 (0-0.2) k/uL Hypochromasia Marked Poikilocytosis Moderate Anisocytosis Moderate Microcytosis Marked PT (9.0-12.0) sec INR (<1.2) APTT (22.0-30.0) sec Sodium 135 L (137-145) mmol/L Potassium 5.4 H (3.5-5.1) mmol/L Chloride 94 L (98-107) mmol/L Carbon Dioxide 29 (22-30) mmol/L Anion Gap 12 mmol/L BUN 41 H (9-20) mg/dL Creatinine 6.80 H (0.66-1.25) mg/dL Est GFR (CKD-EPI)AfAm 9 (>60 ml/min/1.73 sqM) Est GFR (CKD-EPI)NonAf 8 (>60 ml/min/1.73 sqM) Glucose 129 H (74-99) mg/dL Calcium 9.4 (8.4-10.2) mg/dL Total Bilirubin 0.9 (0.2-1.3) mg/dL AST 50 (17-59) U/L ALT 18 L (21-72) U/L Alkaline Phosphatase 110 (38-126) U/L Creatine Kinase 133 (55-170) U/L Troponin I (0.000-0.034) ng/mL NT-Pro-B Natriuret Pep 17995 pg/mL Total Protein 6.4 (6.3-8.2) g/dL Albumin 4.1 (3.5-5.0) g/dL 02/27/19 02/27/19 Range/Units 20:30 20:30 WBC (3.8-10.6) k/uL RBC (4.30-5.90) m/uL Hgb (13.0-17.5) gm/dL Hct (39.0-53.0) % MCV (80.0-100.0) fL MCH (25.0-35.0) pg MCHC (31.0-37.0) g/dL RDW (11.5-15.5) % Plt Count (150-450) k/uL Neutrophils % % Lymphocytes % % Monocytes % % Eosinophils % % Basophils % % Neutrophils # (1.3-7.7) k/uL Lymphocytes # (1.0-4.8) k/uL Monocytes # (0-1.0) k/uL Eosinophils # (0-0.7) k/uL Basophils # (0-0.2) k/uL Hypochromasia Poikilocytosis Anisocytosis Microcytosis PT 11.0 (9.0-12.0) sec INR 1.0 (<1.2) APTT 26.9 (22.0-30.0) sec Sodium (137-145) mmol/L Potassium (3.5-5.1) mmol/L Chloride (98-107) mmol/L Carbon Dioxide (22-30) mmol/L Anion Gap mmol/L BUN (9-20) mg/dL Creatinine (0.66-1.25) mg/dL Est GFR (CKD-EPI)AfAm (>60 ml/min/1.73 sqM) Est GFR (CKD-EPI)NonAf (>60 ml/min/1.73 sqM) Glucose (74-99) mg/dL Calcium (8.4-10.2) mg/dL Total Bilirubin (0.2-1.3) mg/dL AST (17-59) U/L ALT (21-72) U/L Alkaline Phosphatase (38-126) U/L Creatine Kinase (55-170) U/L Troponin I 0.032 (0.000-0.034) ng/mL NT-Pro-B Natriuret Pep pg/mL Total Protein (6.3-8.2) g/dL Albumin (3.5-5.0) g/dL - Radiology Data Radiology results: image reviewed (This x-ray shows pulmonary edema) Critical Care Time Critical Care Time: Yes Total Critical Care Time: 32 Disposition Clinical Impression: Pulmonary edema, Chronic renal failure syndrome Disposition: ADMITTED IP TO THIS [facility] Condition: Serious Is patient prescribed a controlled substance at d/c from ED?: No Referrals: Jazmin Castaneda MD [Primary Care Provider] - 1-2 days Decision Time: 22:14
[2019-02-27 20:55] LABS: Anisocytosis Moderate; Basophils % (A) 1 %; Eosinophils # (A) 0.5 k/uL (0-0.7); Eosinophils % (A) 7 %; HCT 30.5 % (39.0-53.0); HGB 9.3 gm/dL (13.0-17.5); Hypochromasia Marked; Lymphocytes # (A) 1.4 k/uL (1.0-4.8); Lymphocytes % (A) 17 %; MCH 21.5 pg (25.0-35.0); MCHC 30.5 g/dL (31.0-37.0); MCV 70.6 fL (80.0-100.0); Mean Platelet Volume 6.9; Microcytosis Marked; Monocytes # (A) 0.4 k/uL (0-1.0); Monocytes % (A) 5 %; Neutrophils # (A) 5.5 k/uL (1.3-7.7); Neutrophils % (A) 68 %; Platelet Count 146 k/uL (150-450); Poikilocytosis Moderate; RBC 4.32 m/uL (4.30-5.90); RDW 21.3 % (11.5-15.5); WBC 8.1 k/uL (3.8-10.6)
[2019-02-27 21:05] LABS: Partial Thromboplastin Time 26.9 sec (22.0-30.0)
[2019-02-27 21:10] LABS: Albumin 4.1 g/dL (3.5-5.0); Calcium 9.4 mg/dL (8.4-10.2); Total Bilirubin 0.9 mg/dL (0.2-1.3); Total Protein 6.4 g/dL (6.3-8.2)
[2019-02-27 21:17] LABS: Potassium 5.4 mmol/L (3.5-5.1)
[2019-02-27] MEDS ORDERED: NITROGLYCERIN SL TABS 0.4 MG TAB SUBLINGUAL STA (21:17)
--- NOTE | 2019-02-27 21:20 | XR ---
EXAMINATION TYPE: XR chest 2V DATE OF EXAM: 02/27/2019 COMPARISON: 01/10/2019 HISTORY: Chest pain and short of breath TECHNIQUE: Frontal and lateral views of the chest are obtained. FINDINGS: There is pulmonary alveolar edema. There is slight blunting of costophrenic angles. There are chest leads. IMPRESSION: Pulmonary edema is increased compared to old exam and could relate to congestive heart f ailure.
[2019-02-27] MEDS ORDERED: ASPIRIN 325 MG TAB PO STA (22:34)
[2019-02-27] MEDS ORDERED: NITROGLYCERIN-D5W PMX 50 MG in DEXTROSE/WATER 1 250ML.BAG IV ONE (22:38)
[2019-02-27] MEDS: FUROSEMIDE 10 MG/ML 4 ML VIAL IV SCH (23:46)
[2019-02-28] MEDS: traMADol 50 MG TAB PO PRN ×2 (04:53→20:12)
[2019-02-28] MEDS: PANTOPRAZOLE 40 MG TABLET PO SCH (06:34)
[2019-02-28] MEDS: FUROSEMIDE 10 MG/ML 4 ML VIAL IV SCH ×3 (06:34→22:51)
[2019-02-28] MEDS: CALCIUM ACETATE 667 MG TAB PO SCH ×3 (06:34→17:22)
[2019-02-28] MEDS: LEVOTHYROXINE 100 MCG TAB PO SCH (06:34)
[2019-02-28 07:03] LABS: Glucose,Whole Blood 153 mg/dL (75-99)
[2019-02-28] MEDS: INSULIN ASPART (NovoLOG) 100 UNIT/ML VIAL SQ SCH ×4 (07:07→17:22)
[2019-02-28] MEDS: DICYCLOMINE 20 MG TAB PO SCH ×4 (07:50→20:12)
[2019-02-28] MEDS: PYRIDOXINE 50 MG TAB PO SCH (07:50)
[2019-02-28] MEDS: CYANOCOBALAMIN 500 MCG TAB PO SCH (07:50)
[2019-02-28] MEDS: FOLIC ACID 1 MG TAB PO SCH (07:51)
[2019-02-28] MEDS: METOPROLOL SUCCINATE (ER) 50 MG TAB.ER.24H PO SCH (07:51)
[2019-02-28] MEDS: hydrALAZINE HCL 50 MG TAB PO SCH (07:51)
[2019-02-28] MEDS: diphenhydrAMINE 25 MG CAP PO SCH ×2 (07:51→20:12)
[2019-02-28] MEDS ORDERED: NON FORMULARY DRUG (Aspirin [Adult Low Dose Aspirin Ec] 81 MG) PO SCH (09:00)
[2019-02-28] MEDS ORDERED: INSULIN NPH 300 UNIT/3 ML VIAL SQ SCH (09:00)
[2019-02-28 11:42] LABS: Glucose,Whole Blood 173 mg/dL (75-99)
--- NOTE | 2019-02-28 13:41 | P.CRDCN ---
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 The patient stated that he was in his usual state of health until yesterday when he started experiencing shortness of breath. Beside that he was experiencing chest pain. He described the pain as a pressure, in the mid of the chest, without radiation and without any associated symptoms. No symptoms of heart racing or fluttering, dizziness or lightheadedness, or syncope. The EKG showed sinus rhythm with left anterior fascicular block without any ischemic ST or T-wave abnormalities noted. The first set of troponin is within normal limits. The chest x-ray showed findings consistent with CHF. The BNP was more than 6000. The patient stated that he was compliant with his medications as well as his diets. Beside that he stated that he was compliant with dialysis. Currently he is chest pain-free. Overall he is feeling better. He underwent an echocardiogram recently, in January 2019, and that was technically very difficult. The patient is having dialysis at this moment. Beside that he is on Lasix IV. Past Medical History Past Medical History: Heart Failure, Diabetes Mellitus, Dialysis, Hyperlipidemi a, Hypertension, Renal Disease Additional Past Medical History / Comment(s): 50 ounces fluid restrictions per day.ESRD with hemodailysis MWF- abdominal pain/nausea, hyperkalemia, chronic anemia, IDDM type II, neuropathy bilateral feet, bilateral eye retinopathy and leaking vessel behind R eye and recently told also now behind L eye, past R great toe diabetic ulcer which was healed thru [facility] History of Any Multi-Drug Resistant Organisms: None Reported Past Surgical History: Cholecystectomy, Heart Catheterization With Stent, Joint Replacement, Orthopedic Surgery Additional Past Surgical History / Comment(s): PCI with stent in 2008, L arm graft for dialysis, R eye injections/laser surgery, R knee plate with screws, R total hip, 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 Past Anesthesia/Blood Transfusion Reactions: No Reported Reaction Additional Past Anesthesia/Blood Transfusion Reaction / Comment(s): Pt states he has woken during surgeries in the past. Date of Last Stent Placement:: 2008 Past Psychological History: No Psychological Hx Reported Additional Psychological History / Comment(s): . Lives with his and 2 dogs. Pt uses cane to ambulate. He drives. Smoking Status: Former smoker Past Alcohol Use History: None Reported Additional Past Alcohol Use History / Comment(s): Pt started smoking as a teen and quit in 1989 Past Drug Use History: None Reported - Past Family History Mother Family Medical History: Congestive Heart Failure (CHF) Additional Family Medical History / Comment(s): Mother lived to be 89 yrs old. Father Family Medical History: Congestive Heart Failure (CHF) Additional Family Medical History / Comment(s): Father lived to be 93 yrs old. Brother(s) Family Medical History: Congestive Heart Failure (CHF) Additional Family Medical History / Comment(s): Brother at the age of 67yrs. Medications and Allergies Home Medications Medication Instructions Recorded Confirmed Type Aspirin [Adult Low Dose Aspirin EC] 81 mg PO DAILY 10/23/16 02/27/19 History Atorvastatin [Lipitor] 10 mg PO HS 10/23/16 02/27/19 History Ergocalciferol (Vitamin D2) 50,000 unit PO Q14D 10/23/16 02/27/19 History [Vitamin D2] hydrALAZINE HCL 50 mg PO DAILY 10/23/16 02/27/19 History Pyridoxine [Vitamin B-6] 100 mg PO DAILY 08/29/17 02/27/19 History diphenhydrAMINE [Benadryl] 25 mg PO BID 08/29/17 02/27/19 History Folic Acid 0.8 mg PO DAILY 12/07/17 02/27/19 History Metoprolol Succinate (ER) [Toprol 50 mg PO DAILY 05/08/18 02/27/19 History XL] Calcium Acetate [PhosLo] 2,668 mg PO AC-TID 09/12/18 02/27/19 History Cyanocobalamin [Vitamin B-12] 500 mcg PO DAILY 09/12/18 02/27/19 History Furosemide [Lasix] 80 mg PO DAILY 09/12/18 02/27/19 History Levothyroxine Sodium [Synthroid] 300 mcg PO DAILY 10/25/18 02/27/19 History INSULIN ASPART (NovoLOG) [NovoLOG 9 units SQ AC-BRKFST 10/30/18 02/27/19 History (formulary)] INSULIN ASPART (NovoLOG) [NovoLOG 12 unit SQ AC-LUNCH 10/30/18 02/27/19 History (formulary)] INSULIN ASPART (NovoLOG) [NovoLOG 12 unit SQ AC-SUPPER 10/30/18 02/27/19 History (formulary)] Insulin NPH Human Isophane 14 unit SQ BID 10/30/18 02/27/19 History [NovoLIN N] Polyethylene Glycol 3350 [Miralax] 17 gm PO DAILY 12/10/18 02/27/19 History Dicyclomine [Bentyl] 20 mg PO QID 02/27/19 02/27/19 History Omeprazole [PriLOSEC] 20 mg PO AC-BID 02/27/19 02/27/19 History traMADol HCL [Ultram] 50 mg PO BID PRN 02/27/19 02/27/19 History Allergies Allergy/AdvReac Type Severity Reaction Status Date / Time No Known Allergies Allergy Verified 02/27/19 20:21 Physical Exam Vitals: Vital Signs Temp Pulse Pulse Resp BP BP Pulse Ox 02/28/19 11:46 98.2 F 83 20 133/73 92 L 02/28/19 08:24 97.8 F 91 16 159/74 92 L 02/28/19 04:00 95 30 H 156/70 90 L 02/28/19 00:00 91 24 02/27/19 23:00 92 20 168/96 95 02/27/19 22:45 99.3 F 91 24 168/79 91 L 02/27/19 21:18 96 24 160/96 90 L 02/27/19 20:55 24 02/27/19 19:57 100.0 F H 92 18 164/87 89 L Intake and Output 02/27/19 02/28/19 02/28/19 22:59 06:59 14:59 Intake Total 100 Balance 100 Intake: Amount of Fluid Infused ( 100 ml) Other: # Voids 0 Weight 117.934 kg 120.2 kg - Constitutional General appearance: no acute distress - Respiratory Respiratory: bilateral: rhonchi - Cardiovascular Rhythm: regular Heart sounds: normal: S1, S2 Results 02/27/19 20:30 02/27/19 20:30 Cardiac Enzymes 02/27/19 02/27/19 Range/Units 20:30 20:30 AST 50 (17-59) U/L Troponin I 0.032 (0.000-0.034) ng/mL Coagulation 02/27/19 Range/Units 20:30 PT 11.0 (9.0-12.0) sec APTT 26.9 (22.0-30.0) sec CBC 02/27/19 Range/Units 20:30 WBC 8.1 (3.8-10.6) k/uL RBC 4.32 (4.30-5.90) m/uL Hgb 9.3 L (13.0-17.5) gm/dL Hct 30.5 L (39.0-53.0) % Plt Count 146 L (150-450) k/uL Comprehensive Metabolic Panel 02/27/19 Range/Units 20:30 Sodium 135 L (137-145) mmol/L Potassium 5.4 H (3.5-5.1) mmol/L Chloride 94 L (98-107) mmol/L Carbon Dioxide 29 (22-30) mmol/L BUN 41 H (9-20) mg/dL Creatinine 6.80 H (0.66-1.25) mg/dL Glucose 129 H (74-99) mg/dL Calcium 9.4 (8.4-10.2) mg/dL AST 50 (17-59) U/L ALT 18 L (21-72) U/L Alkaline Phosphatase 110 (38-126) U/L Total Protein 6.4 (6.3-8.2) g/dL Albumin 4.1 (3.5-5.0) g/dL Current Medications Generic Name Dose Route Start Last Admin Trade Name Freq PRN Reason Stop Dose Admin Aspirin 325 mg 02/28/19 22:37 Aspirin PO DAILY [facility] Atorvastatin Calcium 10 mg 02/28/19 21:00 Lipitor PO HS [facility] Calcium Acetate 2,668 mg 02/28/19 07:30 02/28/19 12:52 Phoslo PO Not Given AC-TID [facility] Cyanocobalamin 500 mcg 02/28/19 09:00 02/28/19 07:50 Vitamin B-12 PO 500 mcg DAILY [facility] Administration Dicyclomine HCl 20 mg 02/28/19 09:00 02/28/19 07:50 Bentyl PO 20 mg QID [facility] Administration Diphenhydramine HCl 25 mg 02/28/19 09:00 02/28/19 07:51 Benadryl PO 25 mg BID [facility] Administration Ergocalciferol 50,000 unit 03/10/19 09:00 Vitamin D2 PO Q14D [facility] Folic Acid 1 mg 02/28/19 09:00 02/28/19 07:51 Folic Acid PO 1 mg DAILY [facility] Administration Furosemide 40 mg 02/27/19 22:45 02/28/19 06:34 Lasix IV 40 mg Q8H [facility] Administration Hydralazine HCl 50 mg 02/28/19 09:00 02/28/19 07:51 Apresoline PO 50 mg DAILY [facility] Administration Nitroglycerin/Dextrose 50 mg/ 250 mls @ 3 mls/hr 02/27/19 22:38 02/27/19 23:04 IV Solution IV 02/28/19 22:37 10 mcg/min .Q24H ONE 3 mls/hr Administration 10 MCG/MIN Insulin Aspart 12 unit 02/28/19 17:30 Novolog SQ AC-SUPPER [facility] Insulin Aspart 12 unit 02/28/19 12:30 02/28/19 12:52 Novolog SQ 12 unit AC-LUNCH [facility] Administration Insulin Aspart 9 unit 02/28/19 07:30 02/28/19 07:30 Novolog SQ Not Given AC-BRKFST [facility] Levothyroxine Sodium 300 mcg 02/28/19 06:30 02/28/19 06:34 Synthroid PO 300 mcg DAILY@0630 [facility] Administration Metoprolol Succinate 50 mg 02/28/19 09:00 02/28/19 07:51 Toprol Xl PO 50 mg DAILY [facility] Administration Pantoprazole Sodium 40 mg 02/28/19 07:30 02/28/19 06:34 Protonix PO 40 mg DAILY@0730 [facility] Administration Pyridoxine HCl 100 mg 02/28/19 09:00 02/28/19 07:50 Vitamin B-6 PO 100 mg DAILY [facility] Administration Sodium Chloride 10 ml 02/28/19 09:00 02/28/19 07:53 Saline Flush IV Not Given BID [facility] Tramadol HCl 50 mg 02/27/19 22:39 02/28/19 04:53 Ultram PO 50 mg BID PRN Administration Pain Intake and Output 02/27/19 02/28/19 02/28/19 22:59 06:59 14:59 Intake Total 100 Balance 100 Intake: Amount of Fluid Infused ( 100 ml) Other: # Voids 0 Weight 117.934 kg 120.2 kg 02/27/19 20:30 02/27/19 20:30 Assessment and Plan Assessment: Assessment #1 congestive heart failure exacerbation secondary to diastole dysfunction, acute on chronic #2 chest discomfort, could be related to severe coronary artery disease #3 into stage renal disease on dialysis #4 known history of CAD and prior stenting #5 multiple comorbid conditions Plan #1 rule out acute coronary event. We'll follow-up with the serial cardiac enzymes #2 the patient is currently having dialysis #3 continue the IV Lasix #4 continue monitoring the input and output and daily weight #5 severe CAD to be ruled out, either as an inpatient or as an outpatient #6 follow-up with the patient Thank you for allowing us participate in his care
[2019-02-28 13:44] VITALS: BMI 41.5
[2019-02-28] MEDS ORDERED: ONDANSETRON 4 MG/2 ML VIAL IVP PRN (17:02)
[2019-02-28 17:14] LABS: Glucose,Whole Blood 94 mg/dL (75-99)
--- NOTE | 2019-02-28 19:37 | CONS ---
CONSULTATION REASON FOR CONSULT: End-stage renal disease. HISTORY OF PRESENT ILLNESS: Patient is a 63-year-old male with end-stage renal disease, on hemodialysis on a Sunday, Sunday, Sunday schedule. He was admitted to the hospital with complaints of shortness of breath. Patient did not miss his dialysis treatment as outpatient. He also had some chest pain which started about 2 hours before he presented. He states he was just sitting and watching TV. His chest pain has now resolved. The patient does have significant edema and he is currently being dialyzed. No history of fever, chills, nausea, vomiting. Patient has had abdominal pain on and off, particularly with dialysis. PAST MEDICAL HISTORY: 1. End-stage renal disease. 2. Type 2 diabetes. 3. Hyperlipidemia. 4. Hypertension. 5. History of hyperkalemia. 6. Neuropathy. 7. Retinopathy. 8. Peripheral vascular disease. 9. Coronary artery disease. PAST SURGICAL HISTORY: 1. Coronary angiogram with coronary stent placement. 2. AV graft in the left arm for dialysis. 3. Right hip arthroplasty. 4. Left ankle surgery. 5. Right great toe debridement. 6. Colonoscopy. SOCIAL HISTORY: Patient is a former smoker. No history of drug abuse or alcohol abuse. MEDICATIONS: Medications prior to admission included: 1. Insulin. 2. Lasix. 3. Synthroid. 4. Vitamin B12. 5. PhosLo. 6. Toprol. 7. Prilosec. 8. Ultram. 9. MiraLAX. 10.Aspirin. 11.Lipitor. 12.Hydralazine. 13.Benadryl. 14.Folic acid. ALLERGIES: NONE. PHYSICAL EXAMINATION: Patient is comfortable, awake. He is not in any acute distress. He is mildly short of breath. Blood pressure was 133/73, heart rate 83 per minute. He is afebrile. EXAMINATION OF THE HEART: S1 and S2. EXAMINATION OF LUNGS: Bilateral breath sounds are heard. ABDOMEN: Soft, non-tender. Examination of lower extremities shows edema 2+ bilaterally. [employer] exam is grossly intact. LABS: Hemoglobin 9.3, sodium 135, potassium 5.4, BUN 41, serum creatinine 6.8 g/dL. ASSESSMENT: 1. End-stage renal disease, on hemodialysis on a Sunday, Sunday, Sunday schedule. Patient is being dialyzed today. 2. Volume overload. We will try for 3-4 L today and patient will have his dialysis again tomorrow with ultrafiltration only of about 2-3 L as tolerated. 3. Mild hyperkalemia. Expect improvement with hemodialysis today. 4. Chest pain with history of coronary artery disease, being followed by Cardiology. Troponin was not elevated. 5. Chronic kidney disease mineral bone disorder. 6. History of recent cholecystectomy with persistent symptoms of abdominal pain. However, the abdominal pain is usually associated with dialysis, particularly towards the end, which raises suspicion for possible ischemic state to the bowels towards the end of treatment, particularly when the blood pressure drops. Today patient tolerated his treatment very well with about 4 L of ultrafiltration. He did not have any abdominal pain. We will continue to monitor this for now. PLAN: Repeat hemodialysis in a.m., mainly for ultrafiltration. Continue current medications. Continue phosphate binders. Thank you for this consultation. We will continue to follow the patient with you during his hospitalization. MMODL / IJN: [id number] /
[2019-02-28] MEDS: ATORVASTATIN 10 MG TAB PO SCH (20:12)
[2019-02-28 20:33] LABS: Glucose,Whole Blood 77 mg/dL (75-99)
--- NOTE | 2019-02-28 22:24 | P.HPIM ---
History of Present Illness H&P Date: 02/28/19 Chief Complaint: shortness of breath Quoc Tompkins is a 63 yo M with PMH significant for ESRD on MWF HD, diastolic CHF, T2DM, HTN, HLD who presented to the ED with worsening shortness of breath following dialysis. He states that usually his breathing is much better after HD, but after he went for dialysis on Sunday he continued to feel short of breath and had difficulty sleeping. His symptoms continued throughout the next day and when he began to feel chest tightness came in to the ED. He also complains of wet cough and abdominal pain. Pt states that at baseline he makes a small amount of urine on days that he does not have dialysis. He used to do peritoneal dialysis but stopped after he developed peritonitis. In the ED, T 100, SpO2 89% on RA, WBC 8.1, Cr 6.8, BNP 48420. Trop negative and EKG NSR without ST/T changes. CXR demonstrated pulmonary edema. He currently denies chest pain or shortness of breath on 4 L O2. Review of Systems All systems: negative Constitutional: Denies chills, Denies fever Eyes: denies blurred vision, denies pain Ears, nose, mouth and throat: Denies headache, Denies sore throat Cardiovascular: Reports decreased exercise tolerance, Reports leg edema, Denies chest pain, Denies shortness of breath Respiratory: Reports cough, Reports dyspnea Gastrointestinal: Reports abdominal pain, Reports bloating, Denies diarrhea, Denies nausea, Denies vomiting Musculoskeletal: Denies myalgias Integumentary: Denies pruritus, Denies rash Neurological: Denies numbness, Denies weakness Psychiatric: Denies anxiety, Denies depression Endocrine: Denies fatigue, Denies weight change Past Medical History Past Medical History: Heart Failure, Diabetes Mellitus, Dialysis, Hyperlipidemia, Hypertension, Renal Disease Additional Past Medical History / Comment(s): 50 ounces fluid restrictions per day.ESRD with hemodailysis MWF- abdominal pain/nausea, hyperkalemia, chronic anemia, IDDM type II, neuropathy bilateral feet, bilateral eye retinopathy and leaking vessel behind R eye and recently told also now behind L eye, past R great toe diabetic ulcer which was healed thru [facility] History of Any Multi-Drug Resistant Organisms: None Reported Past Surgical History: Cholecystectomy, Heart Catheterization With Stent, Joint Replacement, Orthopedic Surgery Additional Past Surgical History / Comment(s): PCI with stent in 2008, L arm graft for dialysis, R eye injections/laser surgery, R knee plate with screws, R total hip, 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 Past Anesthesia/Blood Transfusion Reactions: No Reported Reaction Additional Past Anesthesia/Blood Transfusion Reaction / Comment(s): Pt states he has woken during surgeries in the past. Date of Last Stent Placement:: 2008 Past Psychological History: No Psychological Hx Reported Additional Psychological History / Comment(s): . Lives with his and 2 dogs. Pt uses cane to ambulate. He drives. Smoking Status: Former smoker Past Alcohol Use History: None Reported Additional Past Alcohol Use History / Comment(s): Pt started smoking as a teen and quit in 1989 Past Drug Use History: None Reported - Past Family History Mother Family Medical History: Congestive Heart Failure (CHF) Additional Family Medical History / Comment(s): Mother lived to be 89 yrs old. Father Family Medical History: Congestive Heart Failure (CHF) Additional Family Medical History / Comment(s): Father lived to be 93 yrs old. Brother(s) Family Medical History: Congestive Heart Failure (CHF) Additional Family Medical History / Comment(s): Brother at the age of 67yrs. Medications and Allergies Home Medications Medication Instructions Recorded Confirmed Type Aspirin [Adult Low Dose Aspirin EC] 81 mg PO DAILY 10/23/16 02/27/19 History Atorvastatin [Lipitor] 10 mg PO HS 10/23/16 02/27/19 History Ergocalciferol (Vitamin D2) 50,000 unit PO Q14D 10/23/16 02/27/19 History [Vitamin D2] hydrALAZINE HCL 50 mg PO DAILY 10/23/16 02/27/19 History Pyridoxine [Vitamin B-6] 100 mg PO DAILY 08/29/17 02/27/19 History diphenhydrAMINE [Benadryl] 25 mg PO BID 08/29/17 02/27/19 History Folic Acid 0.8 mg PO DAILY 12/07/17 02/27/19 History Metoprolol Succinate (ER) [Toprol 50 mg PO DAILY 05/08/18 02/27/19 History XL] Calcium Acetate [PhosLo] 2,668 mg PO AC-TID 09/12/18 02/27/19 History Cyanocobalamin [Vitamin B-12] 500 mcg PO DAILY 09/12/18 02/27/19 History Furosemide [Lasix] 80 mg PO DAILY 09/12/18 02/27/19 History Levothyroxine Sodium [Synthroid] 300 mcg PO DAILY 10/25/18 02/27/19 History INSULIN ASPART (NovoLOG) [NovoLOG 9 units SQ AC-BRKFST 10/30/18 02/27/19 History (formulary)] INSULIN ASPART (NovoLOG) [NovoLOG 12 unit SQ AC-LUNCH 10/30/18 02/27/19 History (formulary)] INSULIN ASPART (NovoLOG) [NovoLOG 12 unit SQ AC-SUPPER 10/30/18 02/27/19 History (formulary)] Insulin NPH Human Isophane 14 unit SQ BID 10/30/18 02/27/19 History [NovoLIN N] Polyethylene Glycol 3350 [Miralax] 17 gm PO DAILY 12/10/18 02/27/19 History Dicyclomine [Bentyl] 20 mg PO QID 02/27/19 02/27/19 History Omeprazole [PriLOSEC] 20 mg PO AC-BID 02/27/19 02/27/19 History traMADol HCL [Ultram] 50 mg PO BID PRN 02/27/19 02/27/19 History Allergies Allergy/AdvReac Type Severity Reaction Status Date / Time No Known Allergies Allergy Verified 02/27/19 20:21 Physical Exam Vitals: Vital Signs Temp Pulse Pulse Resp BP BP Pulse Ox 02/28/19 15:30 98.2 F 86 18 138/76 02/28/19 12:00 98.3 F 83 16 133/73 92 L 02/28/19 11:46 98.2 F 83 20 133/73 92 L 02/28/19 08:24 97.8 F 91 16 159/74 92 L 02/28/19 04:00 95 30 H 156/70 90 L 02/28/19 00:00 91 24 02/27/19 23:00 92 20 168/96 95 02/27/19 22:45 99.3 F 91 24 168/79 91 L 02/27/19 21:18 96 24 160/96 90 L 02/27/19 20:55 24 02/27/19 19:57 100.0 F H 92 18 164/87 89 L Intake and Output 02/28/19 02/28/19 02/28/19 06:59 14:59 22:59 Intake Total 100 118 Output Total 4000 Balance 100 118 -4000 Intake: Amount of Fluid Infused ( 100 ml) Oral 118 Output: Hemodialysis 4000 Other: # Voids 0 Weight 120.2 kg 120.2 kg General: well nourished, well developed, NAD. Vitals reviewed Eyes: PERRL, EOMI, conjunctiva normal HENT: normocephalic, mucus membranes moist Neck: supple, no JVD Lungs: normal respiratory effort. Poor air entry throughout. No wheezing or rales CV: Regular rate and rhythm, systolic murmur. Peripheral pulses 2+. Trace edema BLE Abdomen: soft, distended no organomegaly. Generalized TTP Lymph: no cervical or axillary LAD Skin: warm and dry. Neuro: A&Ox3, normal mood and affect Results CBC & Chem 7: 02/27/19 20:30 02/27/19 20:30 Labs: Abnormal Lab Results - Last 24 Hours (Table) 02/27/19 02/27/19 02/28/19 Range/Units 20:30 20:30 07:02 Hgb 9.3 L (13.0-17.5) gm/dL Hct 30.5 L (39.0-53.0) % MCV 70.6 L (80.0-100.0) fL MCH 21.5 L (25.0-35.0) pg MCHC 30.5 L (31.0-37.0) g/dL RDW 21.3 H (11.5-15.5) % Plt Count 146 L (150-450) k/uL Sodium 135 L (137-145) mmol/L Potassium 5.4 H (3.5-5.1) mmol/L Chloride 94 L (98-107) mmol/L BUN 41 H (9-20) mg/dL Creatinine 6.80 H (0.66-1.25) mg/dL Glucose 129 H (74-99) mg/dL POC Glucose (mg/dL) 153 H (75-99) mg/dL ALT 18 L (21-72) U/L 02/28/19 Range/Units 11:42 Hgb (13.0-17.5) gm/dL Hct (39.0-53.0) % MCV (80.0-100.0) fL MCH (25.0-35.0) pg MCHC (31.0-37.0) g/dL RDW (11.5-15.5) % Plt Count (150-450) k/uL Sodium (137-145) mmol/L Potassium (3.5-5.1) mmol/L Chloride (98-107) mmol/L BUN (9-20) mg/dL Creatinine (0.66-1.25) mg/dL Glucose (74-99) mg/dL POC Glucose (mg/dL) 173 H (75-99) mg/dL ALT (21-72) U/L Thrombosis Risk Factor Assmnt - Choose All That Apply Any of the Below Risk Factors Present?: Yes Each Factor Represents 1 point: Medical pt on bed rest, Obesity (BMI >25), Swollen legs (current) Other Risk Factors: Yes Each Risk Factor Represents 2 Points: Age 61-74 years Other congenital or acquired thrombophilia - If yes, enter type in comment: No Thrombosis Risk Factor Assessment Total Risk Factor Score: 5 Thrombosis Risk Factor Assessment Level: High Risk Assessment and Plan (1) End stage renal disease on dialysis Current Visit: Yes Status: Acute Code(s): N18.6 - END STAGE RENAL DISEASE; Z99.2 - DEPENDENCE ON RENAL DIALYSIS SNOMED Code(s): 118629494 (2) Diastolic CHF Current Visit: Yes Status: Acute Code(s): I50.30 - UNSPECIFIED DIASTOLIC (CONGESTIVE) HEART FAILURE SNOMED Code(s): 195741468 (3) Cardiorenal syndrome with renal failure Current Visit: Yes Status: Acute Code(s): I13.10 - HYP HRT & CHR KDNY DIS W/O HRT FAIL, W STG 1-4/UNSP CHR KDNY SNOMED Code(s): 967206716 (4) Abdominal pain Current Visit: Yes Status: Acute Code(s): R10.9 - UNSPECIFIED ABDOMINAL PAIN SNOMED Code(s): 84522948 (5) Chronic renal failure syndrome Current Visit: Yes Status: Acute Code(s): N18.9 - CHRONIC KIDNEY DISEASE, UNSPECIFIED SNOMED Code(s): 72385745 (6) Pulmonary edema Current Visit: Yes Status: Acute Code(s): J81.1 - CHRONIC PULMONARY EDEMA SNOMED Code(s): 30062825 Plan: 1. Volume overload. Cardiorenal syndrome. Nephrology and cardiology consults. Pt for HD today per Nephrology. Continue lasix. I/Os 2. Chest pain. Now resolved. Cardiology consulted. Trend troponins 3. Abdominal pain. Suspect related to bowel edema vs HD related hypotension. Obtain US abdomen. Tramadol prn 4. CAD. Continue statin
[2019-02-28] MEDS: ASPIRIN 325 MG TAB PO SCH (22:51)
[2019-03-01 07:12] LABS: Glucose,Whole Blood 148 mg/dL (75-99)
[2019-03-01] MEDS: INSULIN ASPART (NovoLOG) 100 UNIT/ML VIAL SQ SCH ×3 (07:22→17:34)
[2019-03-01] MEDS: CALCIUM ACETATE 667 MG TAB PO SCH ×3 (07:22→17:32)
[2019-03-01] MEDS: FUROSEMIDE 10 MG/ML 4 ML VIAL IV SCH ×3 (07:22→22:26)
[2019-03-01] MEDS: LEVOTHYROXINE 100 MCG TAB PO SCH (07:22)
[2019-03-01] MEDS: PANTOPRAZOLE 40 MG TABLET PO SCH (07:22)
[2019-03-01] MEDS: METOPROLOL SUCCINATE (ER) 50 MG TAB.ER.24H PO SCH (08:19)
[2019-03-01] MEDS: DICYCLOMINE 20 MG TAB PO SCH ×4 (08:19→22:26)
[2019-03-01] MEDS: diphenhydrAMINE 25 MG CAP PO SCH ×2 (08:19→22:26)
[2019-03-01] MEDS: FOLIC ACID 1 MG TAB PO SCH (08:19)
[2019-03-01] MEDS: PYRIDOXINE 50 MG TAB PO SCH (08:20)
[2019-03-01] MEDS: traMADol 50 MG TAB PO PRN (08:20)
[2019-03-01] MEDS: CYANOCOBALAMIN 500 MCG TAB PO SCH (08:20)
[2019-03-01] MEDS: ASPIRIN 325 MG TAB PO SCH (08:20)
--- NOTE | 2019-03-01 09:55 | US ---
EXAMINATION TYPE: US abdomen limited DATE OF EXAM: 02/28/2019 COMPARISON: US CLINICAL HISTORY: cardiorenal syndrome, eval for ascites; Pain just superior to umbilicus after renal dialysis per patient history. No ascites is seen in any abdominal quadrant. IMPRESSION: No evidence for ascites at this time.
--- NOTE | 2019-03-01 09:56 | P.PN ---
Subjective Patient is seen in follow-up for end-stage renal disease. He is maintained on hemodialysis on a Sunday schedule. Tolerated hemodialysis well yesterday with 4 L out of hydration. Dyspnea is better. No abdominal pain at this time. Vital signs are stable. General: The patient appeared well nourished and normally developed. HEENT: Head exam is unremarkable. Neck is without jugular venous distension. LUNGS: Lungs are clear to auscultation and percussion. Breath sounds decreased. HEART: Rate and Rhythm are regular. First and second heart sounds normal. No murmurs, rubs or gallops. ABDOMEN: Abdominal exam reveals normal bowel sounds. Non-tender and non- distended. No evidence of peritonitis. EXTREMITITES: 1+ edema. Objective - Vital Signs Vital signs: Vital Signs Temp 97.8 F 03/01/19 08:00 Pulse 82 03/01/19 08:00 Resp 18 03/01/19 08:00 BP 128/66 03/01/19 08:00 Pulse Ox 96 03/01/19 08:00 Intake & Output 02/28/19 03/01/19 03/01/19 18:59 06:59 18:59 Intake Total 236 240 Output Total 4000 100 Balance -3764 -100 240 Weight 120.2 kg 116.3 kg Intake: Oral 236 240 Output: Urine 100 Hemodialysis 4000 Other: # Voids 1 - Labs CBC & Chem 7: 02/27/19 20:30 02/27/19 20:30 Labs: Abnormal Lab Results - Last 24 Hours (Table) 02/28/19 03/01/19 Range/Units 11:42 07:09 POC Glucose (mg/dL) 173 H 148 H (75-99) mg/dL Microbiology - Last 24 Hours (Table) 02/27/19 23:20 Blood Culture - Preliminary Blood No Growth after 24 hours Assessment and Plan Plan: Assessment: 1. End-stage renal disease maintained on hemodialysis on a Sunday schedule. 2. Volume overload. 3. Chronic abdominal pain. Patient has been evaluated by gastroenterology. He had a colonoscopy as well as an EGD done 2 months ago. No significant findings were noted according to the patient. No ascites noted on abdominal ultrasound this admission. 4. Hypertension with chronic kidney disease. Controlled. 5. Insulin-dependent diabetes mellitus. 6. Chronic kidney disease mineral bone disease maintained on PhosLo. Plan: Extra ultrafiltration only treatment today. Add midodrine 5 mg twice daily if needed for systolic blood pressure less than 110. Advised patient to follow low salt diet as well as 70-80 ounces fluid restriction per day.
[2019-03-01] MEDS: HYDROcodone/APAP 5-325MG 1 EACH TAB PO SCH ×3 (10:21→22:26)
[2019-03-01] MEDS: POLYETHYLENE GLYCOL 3350 17 GM POWD.PACK PO SCH (10:22)
[2019-03-01 12:06] LABS: Glucose,Whole Blood 204 mg/dL (75-99)
--- NOTE | 2019-03-01 14:21 | P.PN ---
Subjective Progress Note Date: 03/01/19 The patient is a 63-year-old male with past medical history of end-stage renal disease on dialysis, hypertension, dyslipidemia, chronic diastolic heart failure, and CAD, who presented to the hospital with increased shortness of breath. He states that the last several months they have been remitting less f luid during dialysis, due to abdominal discomfort. His BNP was greater than 6000. His troponins were within normal limits. Chest x-ray consistent with CHF exacerbation. He is currently sitting comfortably up in a chair. He states he's feeling better today now that he has had fluid removed. He will be having HD again today. He denies any chest pain, which was pressure, palpitations, dizziness, or lightheadedness. He does report lower extremity edema. GENERAL: Well-appearing, well-nourished and in no acute distress. NECK: Supple without JVD or thyromegaly. LUNGS: Breath sounds diminished. Respiration equal and unlabored. No wheezes, rales or rhonchi. HEART: Regular rate and rhythm without murmurs, rubs or gallops. S1 and S2 heard. EXTREMITIES: Normal range of motion. +2-3 lower extremity edema No clubbing or cyanosis. Peripheral pulses intact and strong. Echocardiogram shows reduced LV function of 45% Labs: WBC 0.1, hemoglobin 9.3, hematocrit 30.5, platelet 146, sodium 135, potassium 5.4, BUN 41, creatinine 6.80, BNP 61,000 Assessment #1 congestive heart failure exacerbation, systolic and diastolic dysfunction, chronic #2 Chest discomfort, resolved #3 End-stage renal disease on dialysis #4 history of CAD Plan Continue with dialysis and IV Lasix. Continue with I&O and daily weights. Low- salt, renal diet. Objective - Vital Signs Vital signs: Vital Signs Temp 97.7 F 03/01/19 11:55 Pulse 72 03/01/19 11:55 Resp 19 03/01/19 11:55 BP 122/71 03/01/19 11:55 Pulse Ox 100 03/01/19 11:55 Intake & Output 02/28/19 03/01/19 03/01/19 18:59 06:59 18:59 Intake Total 236 480 Output Total 4000 100 Balance -3764 -100 480 Weight 120.2 kg 116.3 kg Intake: Oral 236 480 Output: Urine 100 Hemodialysis 4000 Other: # Voids 1 - Labs CBC & Chem 7: 02/27/19 20:30 02/27/19 20:30 Labs: Abnormal Lab Results - Last 24 Hours (Table) 03/01/19 03/01/19 Range/Units 07:09 11:39 POC Glucose (mg/dL) 148 H 204 H (75-99) mg/dL Microbiology - Last 24 Hours (Table) 02/27/19 23:20 Blood Culture - Preliminary Blood No Growth after 24 hours
--- NOTE | 2019-03-01 14:39 | ECHOF ---
Referral Reason:chest pain MEASUREMENTS -------- HEIGHT: 170.2 cm WEIGHT: 119.7 kg BP: IVSd: 1.1 cm (0.6 - 1.1) LVIDd: 5.3 cm (3.9 - 5.3) LVPWd: 1.5 cm (0.6 - 1.1) IVSs: 1.7 cm LVIDs: 3.9 cm LVPWs: 2.0 cm LA Diam: 4.3 cm (2.7 - 3.8) RVIDd: 3.0 cm (< 3.3) Ao Diam: 4.7 cm (2.0 - 3.7) LA Diam: 3.4 cm (2.7 - 3.8) AV Cusp: 2.6 cm (1.5 - 2.6) EPSS: 1.8 cm MV E Pro: 0.72 m/s MV DecT: 288 ms MV A Pro: 1.01 m/s MV E/A Ratio: 0.71 RAP: 5.00 mmHg RVSP: 13.69 mmHg MV EF SLOPE: 86.17 mm/s (70 - 150) MV EXCURSION: 15.23 mm (> 18.000) FINDINGS -------- Sinus rhythm. This was a techncally difficult study with suboptimal views, , Lumason utilized for enhancement of im ages. The left ventricular size is normal. There is mild concentric left ventricular hypertrophy. Overa ll left ventricular systolic function is moderately impaired with, an EF between 35 - 40 %. Anterse ptal Hypokinesis Inferior Hypokinesis The right ventricle is normal in size. The left atrial size is normal. The right atrial size is normal. 5.0mg OF Lumason UTLIZED: 2 OR MORE WALL SEGMENTS NOT VISUALIZED. There is mild aortic valve sclerosis. There is no evidence of aortic regurgitation. Mild mitral regurgitation is present. The tricuspid valve was not well visualized. Mild tricuspid regurgitation present. Right ventricu lar systolic pressure is normal at < 35 mmHg. There is no evidence of pulmonary hypertension. The pulmonic valve was not well visualized. The aortic root size is normal. There is no pericardial effusion. CONCLUSIONS -------- 1. Sinus rhythm. 2. This was a techncally difficult study with suboptimal views, , Lumason utilized for enhancement of images. 3. The left ventricular size is normal. 4. There is mild concentric left ventricular hypertrophy. 5. Overall left ventricular systolic function is moderately impaired with, an EF between 35 - 40 %. 6. Anterseptal Hypokinesis 7. Inferior Hypokinesis 8. The right ventricle is normal in size. 9. The left atrial size is normal. 10. The right atrial size is normal. 11. 5.0mg OF Lumason UTLIZED: 2 OR MORE WALL SEGMENTS NOT VISUALIZED. 12. There is mild aortic valve sclerosis. 13. Mild mitral regurgitation is present. 14. The tricuspid valve was not well visualized. 15. Mild tricuspid regurgitation present. 16. Right ventricular systolic pressure is normal at < 35 mmHg. 17. There is no evidence of pulmonary hypertension. 18. The pulmonic valve was not well visualized. 19. The aortic root size is normal. 20. There is no pericardial effusion. GAMING WORKER: Ofelia Payne RDCS
[2019-03-01 15:21] LABS: Glucose,Whole Blood 58 mg/dL (75-99)
[2019-03-01 15:21] LABS: Glucose,Whole Blood 51 mg/dL (75-99)
[2019-03-01] MEDS: hydrALAZINE HCL 50 MG TAB PO SCH (15:22)
[2019-03-01 15:52] LABS: Glucose,Whole Blood 86 mg/dL (75-99)
[2019-03-01 15:52] LABS: Glucose,Whole Blood 74 mg/dL (75-99)
[2019-03-01 17:32] LABS: Glucose,Whole Blood 128 mg/dL (75-99)
[2019-03-01 20:49] LABS: Glucose,Whole Blood 221 mg/dL (75-99)
[2019-03-01] MEDS: ATORVASTATIN 10 MG TAB PO SCH (22:26)
--- NOTE | 2019-03-01 22:54 | P.PN ---
Subjective Progress Note Date: 03/01/19 Quoc Tompkins is a 63 yo M with PMH significant for ESRD on MWF HD, diastolic CHF, T2DM, HTN, HLD who presented to the ED with worsening shortness of breath following dialysis. He states that usually his breathing is much better after HD, but after he went for dialysis on Sunday he continued to feel short of breath and had difficulty sleeping. His symptoms continued throughout the next day and when he began to feel chest tightness came in to the ED. He also complains of wet cough and abdominal pain. Pt states that at baseline he makes a small amount of urine on days that he does not have dialysis. He used to do peritoneal dialysis but stopped after he developed peritonitis. In the ED, T 100, SpO2 89% on RA, WBC 8.1, Cr 6.8, BNP 43303. Trop negative and EKG NSR without ST/T changes. CXR demonstrated pulmonary edema. He currently denies chest pain or shortness of breath on 4 L O2. 03/01. He is feeling better today after having 4 L removed in HD yesterday. No abdominal or chest pain although he does complain of chronic back pain. He will be having HD again today. Objective - Vital Signs Vital signs: Vital Signs Temp 97.6 F 03/01/19 16:10 Pulse 83 03/01/19 16:10 Resp 19 03/01/19 16:10 BP 142/82 03/01/19 16:10 Pulse Ox 98 03/01/19 16:10 Intake & Output 03/01/19 03/01/19 03/02/19 06:59 18:59 06:59 Intake Total 720 Output Total 100 3700 Balance -100 -2980 Weight 116.3 kg Intake: Oral 720 Output: Urine 100 Hemodialysis 3700 Other: # Voids 1 - Exam Gen: upright in chair, alert CV: RRR, no murmur Lungs: diminished air entry, no rales or wheezing Abd: soft, distended, nontender Ext: 2+ edema loi - Labs CBC & Chem 7: 02/27/19 20:30 02/27/19 20:30 Labs: Abnormal Lab Results - Last 24 Hours (Table) 03/01/19 03/01/19 03/01/19 Range/Units 07:09 11:39 15:01 POC Glucose (mg/dL) 148 H 204 H 51 L (75-99) mg/dL 03/01/19 03/01/19 03/01/19 Range/Units 15:17 15:34 17:14 POC Glucose (mg/dL) 58 L 74 L 128 H (75-99) mg/dL 03/01/19 Range/Units 20:48 POC Glucose (mg/dL) 221 H (75-99) mg/dL Microbiology - Last 24 Hours (Table) 02/27/19 23:20 Blood Culture - Preliminary Blood No Growth after 24 hours Assessment and Plan (1) End stage renal disease on dialysis Current Visit: Yes Status: Acute Code(s): N18.6 - END STAGE RENAL DISEASE; Z99.2 - DEPENDENCE ON RENAL DIALYSIS SNOMED Code(s): 230921965 (2) Diastolic CHF Current Visit: Yes Status: Acute Code(s): I50.30 - UNSPECIFIED DIASTOLIC (CONGESTIVE) HEART FAILURE SNOMED Code(s): 584833951 (3) Cardiorenal syndrome with renal failure Current Visit: Yes Status: Acute Code(s): I13.10 - HYP HRT & CHR KDNY DIS W/O HRT FAIL, W STG 1-4/UNSP CHR KDNY SNOMED Code(s): 424472859 (4) Abdominal pain Current Visit: Yes Status: Acute Code(s): R10.9 - UNSPECIFIED ABDOMINAL PAIN SNOMED Code(s): 46224704 (5) Chronic renal failure syndrome Current Visit: Yes Status: Acute Code(s): N18.9 - CHRONIC KIDNEY DISEASE, UNSPECIFIED SNOMED Code(s): 11607291 (6) Pulmonary edema Current Visit: Yes Status: Acute Code(s): J81.1 - CHRONIC PULMONARY EDEMA SNOMED Code(s): 95975766 Plan: 1. Volume overload. Cardiorenal syndrome. Improved after HD. Nephrology following. Continue lasix. I/Os 2. Chest pain. Now resolved. Cardiology following. Trop negative 3. Abdominal pain. Improved. US abdomen. Pollock prn 4. CAD. Continue statin
[2019-03-02 06:48] LABS: Calcium 9.5 mg/dL (8.4-10.2); Potassium 4.9 mmol/L (3.5-5.1)
[2019-03-02] MEDS: PANTOPRAZOLE 40 MG TABLET PO SCH (07:14)
[2019-03-02] MEDS: FUROSEMIDE 10 MG/ML 4 ML VIAL IV SCH ×3 (07:14→22:55)
[2019-03-02] MEDS: CALCIUM ACETATE 667 MG TAB PO SCH ×3 (07:14→17:32)
[2019-03-02] MEDS: LEVOTHYROXINE 100 MCG TAB PO SCH (07:14)
[2019-03-02 07:32] LABS: Glucose,Whole Blood 312 mg/dL (75-99)
[2019-03-02] MEDS: PYRIDOXINE 50 MG TAB PO SCH (07:34)
[2019-03-02] MEDS: METOPROLOL SUCCINATE (ER) 50 MG TAB.ER.24H PO SCH (07:35)
[2019-03-02] MEDS: ASPIRIN 325 MG TAB PO SCH (07:35)
[2019-03-02] MEDS: FOLIC ACID 1 MG TAB PO SCH (07:35)
[2019-03-02] MEDS: diphenhydrAMINE 25 MG CAP PO SCH ×2 (07:35→21:07)
[2019-03-02] MEDS: DICYCLOMINE 20 MG TAB PO SCH ×4 (07:35→21:07)
[2019-03-02] MEDS: hydrALAZINE HCL 50 MG TAB PO SCH (07:35)
[2019-03-02] MEDS: HYDROcodone/APAP 5-325MG 1 EACH TAB PO SCH ×3 (07:36→21:07)
[2019-03-02] MEDS: CYANOCOBALAMIN 500 MCG TAB PO SCH (07:36)
[2019-03-02] MEDS: POLYETHYLENE GLYCOL 3350 17 GM POWD.PACK PO SCH (07:38)
[2019-03-02] MEDS: INSULIN ASPART (NovoLOG) 100 UNIT/ML VIAL SQ SCH ×3 (07:39→17:36)
--- NOTE | 2019-03-02 09:56 | P.PN ---
Subjective Patient is seen in follow-up for end-stage renal disease. He is maintained on hemodialysis on a Sunday schedule. Tolerated 3.7 L of ultrafiltration yesterday. Dyspnea is better. No abdominal pain at this time. Vital signs are stable. General: The patient appeared well nourished and normally developed. HEENT: Head exam is unremarkable. Neck is without jugular venous distension. LUNGS: Lungs are clear to auscultation and percussion. Breath sounds decreased. HEART: Rate and Rhythm are regular. First and second heart sounds normal. No murmurs, rubs or gallops. ABDOMEN: Abdominal exam reveals normal bowel sounds. Non-tender and non- distended. No evidence of peritonitis. EXTREMITITES: 1+ edema. Objective - Vital Signs Vital signs: Vital Signs Temp 97.7 F 03/02/19 07:46 Pulse 89 03/02/19 07:46 Resp 18 03/02/19 07:46 BP 122/67 03/02/19 07:46 Pulse Ox 95 03/02/19 07:46 Intake & Output 03/01/19 03/02/19 03/02/19 18:59 06:59 18:59 Intake Total 720 240 Output Total 3700 Balance -2980 240 Weight 115.4 kg Intake: Oral 720 240 Output: Hemodialysis 3700 - Labs CBC & Chem 7: 02/27/19 20:30 03/02/19 06:01 Labs: Abnormal Lab Results - Last 24 Hours (Table) 03/01/19 03/01/19 03/01/19 Range/Units 11:39 15:01 15:17 Sodium (137-145) mmol/L Chloride (98-107) mmol/L BUN (9-20) mg/dL Creatinine (0.66-1.25) mg/dL Glucose (74-99) mg/dL POC Glucose (mg/dL) 204 H 51 L 58 L (75-99) mg/dL 03/01/19 03/01/19 03/01/19 Range/Units 15:34 17:14 20:48 Sodium (137-145) mmol/L Chloride (98-107) mmol/L BUN (9-20) mg/dL Creatinine (0.66-1.25) mg/dL Glucose (74-99) mg/dL POC Glucose (mg/dL) 74 L 128 H 221 H (75-99) mg/dL 03/02/19 03/02/19 Range/Units 06:01 07:28 Sodium 134 L (137-145) mmol/L Chloride 94 L (98-107) mmol/L BUN 39 H (9-20) mg/dL Creatinine 6.87 H (0.66-1.25) mg/dL Glucose 290 H (74-99) mg/dL POC Glucose (mg/dL) 312 H (75-99) mg/dL Microbiology - Last 24 Hours (Table) 02/27/19 23:20 Blood Culture - Preliminary Blood No Growth after 48 hours Assessment and Plan Plan: Assessment: 1. End-stage renal disease maintained on hemodialysis on a Sunday schedule. 2. Volume overload. 3. Chronic abdominal pain. Patient has been evaluated by gastroenterology. He had a colonoscopy as well as an EGD done 2 months ago. No significant findings were noted according to the patient. No ascites noted on abdominal ultrasound this admission. 4. Hypertension with chronic kidney disease. Controlled. 5. Insulin-dependent diabetes mellitus. 6. Chronic kidney disease mineral bone disease maintained on PhosLo. 7. Systolic CHF with ejection fraction of 35-40%. Plan: HD tomorrow. Maintain midodrine 5 mg twice daily if needed for systolic blood pressure less than 110. Advised patient to follow low salt diet as well as 70-80 ounces fluid restriction per day. His dry weight will also be lowered outpatient.
--- NOTE | 2019-03-02 11:00 | P.PN ---
Subjective Progress Note Date: 03/02/19 Principal diagnosis: CHF exacerbation The patient is a 63-year-old male with past medical history of end-stage renal disease on dialysis, hypertension, dyslipidemia, chronic diastolic heart failure, and CAD, who presented to the hospital with increased shortness of breath. He states that the last several months they have been remitting less fluid during dialysis, due to abdominal discomfort. His BNP was greater than 6000. His troponins were within normal limits. Chest x-ray consistent with CHF exacerbation. 03/01/19: He is currently sitting comfortably up in a chair. He states he's feeling better today now that he has had fluid removed. He will be having HD again today. He denies any chest pain, which was pressure, palpitations, dizziness, or lightheadedness. He does report lower extremity edema. 03/02/19: This morning he is lying in bed. He has slightly labored and reports some shortness of breath. He had approximately 3.7 L of fluid removed during dialysis yesterday, however states he does continue to feel slightly bloated and has umbilical discomfort. GENERAL: Well-appearing, well-nourished and in no acute distress. NECK: Supple without JVD or thyromegaly. LUNGS: Breath sounds diminished. Respiration equal and unlabored. No wheezes, rales or rhonchi. HEART: Regular rate and rhythm without murmurs, rubs or gallops. S1 and S2 heard. EXTREMITIES: Normal range of motion. +3 lower extremity edema No clubbing or cyanosis. Peripheral pulses intact and strong. Echocardiogram shows reduced LV function of 45% Labs: Sodium 134, potassium 4.9, BUN 39, creatinine 6.87 Assessment #1 congestive heart failure exacerbation, systolic and diastolic dysfunction, chronic #2 Chest discomfort, resolved #3 End-stage renal disease on dialysis #4 history of CAD Plan Continue with dialysis and IV Lasix. Continue with I&O and daily weights. Low- salt, renal diet. Objective - Vital Signs Vital signs: Vital Signs Temp 97.7 F 03/02/19 07:46 Pulse 89 03/02/19 07:46 Resp 18 03/02/19 07:46 BP 122/67 03/02/19 07:46 Pulse Ox 95 03/02/19 07:46 Intake & Output 03/01/19 03/02/19 03/02/19 18:59 06:59 18:59 Intake Total 720 240 Output Total 3700 Balance -2980 240 Weight 115.4 kg Intake: Oral 720 240 Output: Hemodialysis 3700 Other: # Voids 0 - Labs CBC & Chem 7: 02/27/19 20:30 03/02/19 06:01 Labs: Abnormal Lab Results - Last 24 Hours (Table) 03/01/19 03/01/19 03/01/19 Range/Units 11:39 15:01 15:17 Sodium (137-145) mmol/L Chloride (98-107) mmol/L BUN (9-20) mg/dL Creatinine (0.66-1.25) mg/dL Glucose (74-99) mg/dL POC Glucose (mg/dL) 204 H 51 L 58 L (75-99) mg/dL 03/01/19 03/01/19 03/01/19 Range/Units 15:34 17:14 20:48 Sodium (137-145) mmol/L Chloride (98-107) mmol/L BUN (9-20) mg/dL Creatinine (0.66-1.25) mg/dL Glucose (74-99) mg/dL POC Glucose (mg/dL) 74 L 128 H 221 H (75-99) mg/dL 03/02/19 03/02/19 Range/Units 06:01 07:28 Sodium 134 L (137-145) mmol/L Chloride 94 L (98-107) mmol/L BUN 39 H (9-20) mg/dL Creatinine 6.87 H (0.66-1.25) mg/dL Glucose 290 H (74-99) mg/dL POC Glucose (mg/dL) 312 H (75-99) mg/dL Microbiology - Last 24 Hours (Table) 02/27/19 23:20 Blood Culture - Preliminary Blood No Growth after 48 hours
[2019-03-02] MEDS: traMADol 50 MG TAB PO PRN ×2 (11:57→23:25)
[2019-03-02 12:51] LABS: Glucose,Whole Blood 248 mg/dL (75-99)
[2019-03-02 17:20] LABS: Glucose,Whole Blood 123 mg/dL (75-99)
--- NOTE | 2019-03-02 19:52 | P.PN ---
Subjective Progress Note Date: 03/02/19 Quoc Tompkins is a 63 yo M with PMH significant for ESRD on MWF HD, diastolic CHF, T2DM, HTN, HLD who presented to the ED with worsening shortness of breath following dialysis. He states that usually his breathing is much better after HD, but after he went for dialysis on Sunday he continued to feel short of breath and had difficulty sleeping. His symptoms continued throughout the next day and when he began to feel chest tightness came in to the ED. He also complains of wet cough and abdominal pain. Pt states that at baseline he makes a small amount of urine on days that he does not have dialysis. He used to do peritoneal dialysis but stopped after he developed peritonitis. In the ED, T 100, SpO2 89% on RA, WBC 8.1, Cr 6.8, BNP 33668. Trop negative and EKG NSR without ST/T changes. CXR demonstrated pulmonary edema. He currently denies chest pain or shortness of breath on 4 L O2. 03/01. He is feeling better today after having 4 L removed in HD yesterday. No abdominal or chest pain although he does complain of chronic back pain. He will be having HD again today. 03/02. His weight is stable and abdominal pain is improved. No dyspnea at rest but still getting short of breath with exertion. Objective - Vital Signs Vital signs: Vital Signs Temp 97.8 F 03/02/19 16:10 Pulse 98 03/02/19 16:10 Resp 18 03/02/19 16:10 BP 130/69 03/02/19 16:10 Pulse Ox 98 03/02/19 16:10 Intake & Output 03/02/19 03/02/19 03/03/19 06:59 18:59 06:59 Intake Total 720 Balance 720 Weight 115.4 kg Intake: Oral 720 Other: # Voids 1 - Exam Gen: upright in chair, alert CV: RRR, no murmur Lungs: diminished air entry, no rales or wheezing Abd: soft, distended, nontender Ext: 1+ edema loi - Labs CBC & Chem 7: 02/27/19 20:30 03/02/19 06:01 Labs: Abnormal Lab Results - Last 24 Hours (Table) 03/01/19 03/02/19 03/02/19 Range/Units 20:48 06:01 07:28 Sodium 134 L (137-145) mmol/L Chloride 94 L (98-107) mmol/L BUN 39 H (9-20) mg/dL Creatinine 6.87 H (0.66-1.25) mg/dL Glucose 290 H (74-99) mg/dL POC Glucose (mg/dL) 221 H 312 H (75-99) mg/dL 03/02/19 03/02/19 Range/Units 12:31 17:18 Sodium (137-145) mmol/L Chloride (98-107) mmol/L BUN (9-20) mg/dL Creatinine (0.66-1.25) mg/dL Glucose (74-99) mg/dL POC Glucose (mg/dL) 248 H 123 H (75-99) mg/dL Microbiology - Last 24 Hours (Table) 02/27/19 23:20 Blood Culture - Preliminary Blood No Growth after 48 hours Assessment and Plan (1) End stage renal disease on dialysis Current Visit: Yes Status: Acute Code(s): N18.6 - END STAGE RENAL DISEASE; Z99.2 - DEPENDENCE ON RENAL DIALYSIS SNOMED Code(s): 686494398 (2) Diastolic CHF Current Visit: Yes Status: Acute Code(s): I50.30 - UNSPECIFIED DIASTOLIC (CONGESTIVE) HEART FAILURE SNOMED Code(s): 721574529 (3) Cardiorenal syndrome with renal failure Current Visit: Yes Status: Acute Code(s): I13.10 - HYP HRT & CHR KDNY DIS W/O HRT FAIL, W STG 1-4/UNSP CHR KDNY SNOMED Code(s): 037884261 (4) Abdominal pain Current Visit: Yes Status: Acute Code(s): R10.9 - UNSPECIFIED ABDOMINAL PAIN SNOMED Code(s): 02970402 (5) Chronic renal failure syndrome Current Visit: Yes Status: Acute Code(s): N18.9 - CHRONIC KIDNEY DISEASE, UNSPECIFIED SNOMED Code(s): 36366130 (6) Pulmonary edema Current Visit: Yes Status: Acute Code(s): J81.1 - CHRONIC PULMONARY EDEMA SNOMED Code(s): 11386506 Plan: His volume status is improved with approx 8 L removed and breathing close to baseline. Abdominal pain significantly improved with norco. Plan on d/c tomorrow if continued clinical improvement
[2019-03-02] MEDS: ATORVASTATIN 10 MG TAB PO SCH (21:07)
[2019-03-02 21:09] LABS: Glucose,Whole Blood 132 mg/dL (75-99)
[2019-03-03 07:02] LABS: Glucose,Whole Blood 240 mg/dL (75-99)
[2019-03-03] MEDS: FUROSEMIDE 10 MG/ML 4 ML VIAL IV SCH (07:06)
[2019-03-03] MEDS: INSULIN ASPART (NovoLOG) 100 UNIT/ML VIAL SQ SCH ×2 (07:06→12:46)
[2019-03-03] MEDS: PANTOPRAZOLE 40 MG TABLET PO SCH (07:07)
[2019-03-03] MEDS: CALCIUM ACETATE 667 MG TAB PO SCH ×2 (07:07→12:46)
[2019-03-03] MEDS: LEVOTHYROXINE 100 MCG TAB PO SCH (07:07)
[2019-03-03 07:37] LABS: Glucose,Whole Blood 238 mg/dL (75-99)
--- NOTE | 2019-03-03 10:07 | P.PN ---
Subjective Patient is seen in follow-up for end-stage renal disease. He is maintained on hemodialysis on a Sunday schedule. Currently seeing while undergoing hemodialysis. Dyspnea is better. Still edematous. No abdominal pain at this time. Vital signs are stable. General: The patient appeared well nourished and normally developed. HEENT: Head exam is unremarkable. Neck is without jugular venous distension. LUNGS: Lungs are clear to auscultation and percussion. Breath sounds decreased. HEART: Rate and Rhythm are regular. First and second heart sounds normal. No murmurs, rubs or gallops. ABDOMEN: Abdominal exam reveals normal bowel sounds. Non-tender and non- distended. No evidence of peritonitis. EXTREMITITES: 1+ edema. Objective - Vital Signs Vital signs: Vital Signs Temp 98.0 F 03/03/19 04:00 Pulse 84 03/03/19 04:00 Resp 18 03/03/19 04:00 BP 137/77 03/03/19 04:00 Pulse Ox 95 03/03/19 04:00 Intake & Output 03/02/19 03/03/19 03/03/19 18:59 06:59 18:59 Intake Total 720 Balance 720 Weight 115.2 kg Intake: Oral 720 Other: # Voids 1 - Labs CBC & Chem 7: 02/27/19 20:30 03/02/19 06:01 Labs: Abnormal Lab Results - Last 24 Hours (Table) 03/02/19 03/02/19 03/02/19 Range/Units 12:31 17:18 21:08 POC Glucose (mg/dL) 248 H 123 H 132 H (75-99) mg/dL 03/03/19 03/03/19 Range/Units 07:01 07:17 POC Glucose (mg/dL) 240 H 238 H (75-99) mg/dL Microbiology - Last 24 Hours (Table) 02/27/19 23:20 Blood Culture - Preliminary Blood No Growth after 72 hours Assessment and Plan Plan: Assessment: 1. End-stage renal disease maintained on hemodialysis on a Sunday schedule. 2. Volume overload. Gradually improving with ultrafiltration. 3. Chronic abdominal pain. Patient has been evaluated by gastroenterology. He had a colonoscopy as well as an EGD done 2 months ago. No significant findings were noted according to the patient. No ascites noted on abdominal ultrasound this admission. 4. Hypertension with chronic kidney disease. Controlled. 5. Insulin-dependent diabetes mellitus. 6. Chronic kidney disease mineral bone disease maintained on PhosLo. 7. Systolic CHF with ejection fraction of 35-40%. Plan: Currently seen while undergoing hemodialysis. Will plan for ultrafiltration only tomorrow if still in the hospital. Maintain midodrine 5 mg twice daily if needed for systolic blood pressure less than 110. Advised patient to follow low salt diet as well as 70-80 ounces fluid r estriction per day. His dry weight will also be lowered outpatient.
[2019-03-03] MEDS: FOLIC ACID 1 MG TAB PO SCH (10:35)
[2019-03-03] MEDS: diphenhydrAMINE 25 MG CAP PO SCH (10:35)
[2019-03-03] MEDS: traMADol 50 MG TAB PO PRN (10:36)
[2019-03-03] MEDS: METOPROLOL SUCCINATE (ER) 50 MG TAB.ER.24H PO SCH (10:36)
[2019-03-03] MEDS: POLYETHYLENE GLYCOL 3350 17 GM POWD.PACK PO SCH (10:37)
[2019-03-03] MEDS: HYDROcodone/APAP 5-325MG 1 EACH TAB PO SCH (10:37)
[2019-03-03] MEDS: CYANOCOBALAMIN 500 MCG TAB PO SCH (10:37)
[2019-03-03] MEDS: DICYCLOMINE 20 MG TAB PO SCH ×2 (10:37→12:49)
[2019-03-03] MEDS: PYRIDOXINE 50 MG TAB PO SCH (10:38)
[2019-03-03 11:41] VITALS: TEMP 97.7
--- NOTE | 2019-03-03 11:53 | P.DS ---
Providers Date of admission: 02/27/19 22:38 Expected date of discharge: 03/03/19 Attending physician: Arcadio Chao MD Consults: 02/27/19 22:15 Consult Physician Routine Consulting Provider: Ney Dougherty Consult Reason/Comments: Pulmonary edema, CRF Do you want consulting provider notified?: Yes Consult Physician Routine Consulting Provider: Farshad Hopkins Consult Reason/Comments: Pulmonary edema, chest Do you want consulting provider notified?: Yes Primary care physician: Jazmin Athol Hospital Course: Final Diagnoses: (1) End stage renal disease on dialysis Current Visit: Yes Status: Acute Code(s): N18.6 - END STAGE RENAL DISEASE; Z99.2 - DEPENDENCE ON RENAL DIALYSIS SNOMED Code(s): 165009650 (2) Diastolic CHF Current Visit: Yes Status: Acute Code(s): I50.30 - UNSPECIFIED DIASTOLIC (CONGESTIVE) HEART FAILURE SNOMED Code(s): 960030869 (3) Cardiorenal syndrome with renal failure Current Visit: Yes Status: Acute Code(s): I13.10 - HYP HRT & CHR KDNY DIS W/O HRT FAIL, W STG 1-4/UNSP CHR KDNY SNOMED Code(s): 804383172 (4) Abdominal pain Current Visit: Yes Status: Acute Code(s): R10.9 - UNSPECIFIED ABDOMINAL PAIN SNOMED Code(s): 03879083 (5) Chronic renal failure syndrome Current Visit: Yes Status: Acute Code(s): N18.9 - CHRONIC KIDNEY DISEASE, UNSPECIFIED SNOMED Code(s): 10383688 (6) Pulmonary edema Current Visit: Yes Status: Acute Code(s): J81.1 - CHRONIC PULMONARY EDEMA SNOMED Code(s): 64920361 Hospital course:Quoc Tompkins is a 63 yo M with PMH significant for ESRD on MWF HD, diastolic CHF, T2DM, HTN, HLD who presented to the ED with worsening shortness of breath following dialysis. He states that usually his breathing is much better after HD, but after he went for dialysis on Sunday he continued to feel short of breath and had difficulty sleeping. His symptoms continued throughout the next day and when he began to feel chest tightness came in to the ED. He also complains of wet cough and abdominal pain. Pt states that at baseline he makes a small amount of urine on days that he does not have dialy sis. He used to do peritoneal dialysis but stopped after he developed peritonitis. In the ED, T 100, SpO2 89% on RA, WBC 8.1, Cr 6.8, BNP 15416. Trop negative and EKG NSR without ST/T changes. CXR demonstrated pulmonary edema. He currently denies chest pain or shortness of breath on 4 L O2. 03/01. He is feeling better today after having 4 L removed in HD yesterday. No abdominal or chest pain although he does complain of chronic back pain. He will be having HD again today. 03/02. His weight is stable and abdominal pain is improved. No dyspnea at rest but still getting short of breath with exertion. Receiving hemodialysis currently, complains of abdominal pain superior to umbilicus , suspect related to fluid shifts or possibly scar tissue secondary to history of peritoneal dialysis.Ultrasound negative for ascites. Significant clinical improvement. Patient being discharged home after hemodialysis, pending nephrology's clearance, in a stable condition with guarded prognosis. Midodrin and diuretics as per nephrology. Outpatient CTA regarding abdominal pain as per nephrology or PCP. - Exam Gen: upright in chair, alert and oriented 3 CV: RRR, no murmur Lungs: diminished air entry, no rales or wheezing Abd: soft, distended, nontender The impression and plan of care has been dictated as directed. : I performed a history and examination of this patient, discussed the same with the dictator. I agree with the dictator's note ,documented as a scribe. Any additional findings or plans will be noted. Time taken:35 min. Patient Condition at Discharge: Stable Plan - Discharge Summary Discharge Rx Participant: No New Discharge Prescriptions: New hydrALAZINE HCL [Apresoline] 25 mg PO BID #60 tab Continue Atorvastatin [Lipitor] 10 mg PO HS Ergocalciferol (Vitamin D2) [Vitamin D2] 50,000 unit PO Q14D Aspirin [Adult Low Dose Aspirin EC] 81 mg PO DAILY Pyridoxine [Vitamin B-6] 100 mg PO DAILY diphenhydrAMINE [Benadryl] 25 mg PO BID Folic Acid 0.8 mg PO DAILY Metoprolol Succinate (ER) [Toprol XL] 50 mg PO DAILY Cyanocobalamin [Vitamin B-12] 500 mcg PO DAILY Furosemide [Lasix] 80 mg PO DAILY Calcium Acetate [PhosLo] 2,668 mg PO AC-TID Levothyroxine Sodium [Synthroid] 300 mcg PO DAILY INSULIN ASPART (NovoLOG) [NovoLOG (formulary)] 9 units SQ AC-BRKFST INSULIN ASPART (NovoLOG) [NovoLOG (formulary)] 12 unit SQ AC-LUNCH INSULIN ASPART (NovoLOG) [NovoLOG (formulary)] 12 unit SQ AC-SUPPER Insulin NPH Human Isophane [NovoLIN N] 14 unit SQ BID Polyethylene Glycol 3350 [Miralax] 17 gm PO DAILY Omeprazole [PriLOSEC] 20 mg PO AC-BID Dicyclomine [Bentyl] 20 mg PO QID traMADol HCL [Ultram] 50 mg PO BID PRN PRN Reason: Pain Discontinued hydrALAZINE HCL 50 mg PO DAILY Discharge Medication List Aspirin [Adult Low Dose Aspirin EC] 81 mg PO DAILY 10/23/16 [History] Atorvastatin [Lipitor] 10 mg PO HS 10/23/16 [History] Ergocalciferol (Vitamin D2) [Vitamin D2] 50,000 unit PO Q14D 10/23/16 [History] Pyridoxine [Vitamin B-6] 100 mg PO DAILY 08/29/17 [History] diphenhydrAMINE [Benadryl] 25 mg PO BID 08/29/17 [History] Folic Acid 0.8 mg PO DAILY 12/07/17 [History] Metoprolol Succinate (ER) [Toprol XL] 50 mg PO DAILY 05/08/18 [History] Calcium Acetate [PhosLo] 2,668 mg PO AC-TID 09/12/18 [History] Cyanocobalamin [Vitamin B-12] 500 mcg PO DAILY 09/12/18 [History] Furosemide [Lasix] 80 mg PO DAILY 09/12/18 [History] Levothyroxine Sodium [Synthroid] 300 mcg PO DAILY 10/25/18 [History] INSULIN ASPART (NovoLOG) [NovoLOG (formulary)] 9 units SQ AC-BRKFST 10/30/18 [History] INSULIN ASPART (NovoLOG) [NovoLOG (formulary)] 12 unit SQ AC-LUNCH 10/30/18 [History] INSULIN ASPART (NovoLOG) [NovoLOG (formulary)] 12 unit SQ AC-SUPPER 10/30/18 [History] Insulin NPH Human Isophane [NovoLIN N] 14 unit SQ BID 10/30/18 [History] Polyethylene Glycol 3350 [Miralax] 17 gm PO DAILY 12/10/18 [History] Dicyclomine [Bentyl] 20 mg PO QID 02/27/19 [History] Omeprazole [PriLOSEC] 20 mg PO AC-BID 02/27/19 [History] traMADol HCL [Ultram] 50 mg PO BID PRN 02/27/19 [History] hydrALAZINE HCL [Apresoline] 25 mg PO BID #60 tab 03/03/19 [Rx] Follow up Appointment(s)/Referral(s): Jazmin Castaneda MD [Primary Care Provider] - 3 Days Ambulatory/Diagnostic Orders: Complete Blood Count w/diff [LAB.AMB] Time Frame: 3 Days, Location: None Selected Activity/Diet/Wound Care/Special Instructions: Midodrin & Diuretics as per Nephrology. Pending nephrology's clearance.
[2019-03-03 12:52] LABS: Glucose,Whole Blood 146 mg/dL (75-99)
[2019-03-03] MEDS: hydrALAZINE HCL 50 MG TAB PO SCH (14:06)
[2019-03-03] MEDS: ASPIRIN 325 MG TAB PO SCH (14:06)
[2019-03-03 14:27] VITALS: BP 130/64; PULSE 87; RESP 20
--- NOTE | 2019-03-03 14:59 | P.PN ---
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 The patient stated that he was in his usual state of health until yesterday when he started experiencing shortness of breath. Beside that he was experiencing chest pain. He described the pain as a pressure, in the mid of the chest, without radiation and without any associated symptoms. No symptoms of heart racing or fluttering, dizziness or lightheadedness, or syncope. The EKG showed sinus rhythm with left anterior fascicular block without any ischemic ST or T-wave abnormalities noted. The first set of troponin is within normal limits. The chest x-ray showed findings consistent with CHF. The BNP was more than 6000. The patient stated that he was compliant with his medications as well as his diets. Beside that he stated that he was compliant with dialysis. Currently he is chest pain-free. Overall he is feeling better. He underwent an echocardiogram recently, in January 2019, and that was technically very difficult. The patient is having dialysis at this moment. Beside that he is on Lasix IV. Blood pressure 126/60 with a heart rate in the 80s, 98% on room air. Today's labs are pending. Objective - Vital Signs Vital signs: Vital Signs Temp 97.7 F 03/03/19 11:38 Pulse 87 03/03/19 12:00 Resp 20 03/03/19 12:00 BP 130/64 03/03/19 12:00 Pulse Ox 98 03/03/19 12:00 Intake & Output 03/02/19 03/03/19 03/03/19 18:59 06:59 18:59 Intake Total 720 240 Output Total 3900 Balance 720 -3660 Weight 115.2 kg Intake: Oral 720 240 Output: Hemodialysis 3900 Other: # Voids 1 - Exam GENERAL: Well-appearing, well-nourished and in no acute distress. NECK: Supple without JVD or thyromegaly. LUNGS: Breath sounds diminished. Respiration equal and unlabored. No wheezes, rales or rhonchi. HEART: Regular rate and rhythm without murmurs, rubs or gallops. S1 and S2 heard. EXTREMITIES: Normal range of motion. +3 lower extremity edema No clubbing or cyanosis. Peripheral pulses intact and strong. - Labs CBC & Chem 7: 02/27/19 20:30 03/02/19 06:01 Labs: Abnormal Lab Results - Last 24 Hours (Table) 03/02/19 03/02/19 03/03/19 Range/Units 17:18 21:08 07:01 POC Glucose (mg/dL) 123 H 132 H 240 H (75-99) mg/dL 03/03/19 03/03/19 Range/Units 07:17 12:31 POC Glucose (mg/dL) 238 H 146 H (75-99) mg/dL Microbiology - Last 24 Hours (Table) 02/27/19 23:20 Blood Culture - Preliminary Blood No Growth after 72 hours Assessment and Plan Plan: Assessment #1 congestive heart failure exacerbation, systolic acute on chronic #2 Chest discomfort, resolved #3 End-stage renal disease on dialysis #4 history of CAD #5 hypertension #6 hyperlipidemia Plan From cardiology's perspective, we'll continue with current medications, diuretics as per nephrology. DNP note has been reviewed, I agree with a documented findings and plan of care. Patient was seen and examined.
[2019-03-03] MEDS ORDERED: hydrALAZINE HCL 25 MG TAB PO SCH (21:00)
[2019-03-03] MEDS ORDERED: ATORVASTATIN 40 MG TAB PO SCH (21:00)
[2019-03-04] MEDS ORDERED: ASPIRIN 81 MG PO SCH (09:00)
[2019-03-10] MEDS ORDERED: ERGOCALCIFEROL 50,000 UNIT CAP PO SCH (09:00)
== END 2019-03-03 15:45 | disposition home or self-care (01) | DRG 291 ==
LOC: EC 19:54 → 3SCARD 22:38
PROVIDERS: ADMIT Family Medicine; ATTEND Family Medicine
PROC: 5A1D70Z Performance of Urinary Filtration, Intermittent, Less than 6 Hours Per Day (ICD-10-PCS; principal; 2019-02-28)
DX: I13.2 Hypertensive heart and chronic kidney disease with heart failure and with stage 5 chronic kidney disease, or end stage renal disease (principal); I50.43 Acute on chronic combined systolic (congestive) and diastolic (congestive) heart failure; N18.6 End stage renal disease; E11.22 Type 2 diabetes mellitus with diabetic chronic kidney disease; E11.319 Type 2 diabetes mellitus with unspecified diabetic retinopathy without macular edema; E11.51 Type 2 diabetes mellitus with diabetic peripheral angiopathy without gangrene; E78.5 Hyperlipidemia, unspecified; E87.5 Hyperkalemia; G89.29 Other chronic pain; I25.10 Atherosclerotic heart disease of native coronary artery without angina pectoris; I44.4 Left anterior fascicular block; M89.8X9 Other specified disorders of bone, unspecified site; Z79.4 Long term (current) use of insulin; Z79.82 Long term (current) use of aspirin; Z79.890 Hormone replacement therapy; Z79.899 Other long term (current) drug therapy; Z82.49 Family history of ischemic heart disease and other diseases of the circulatory system; Z87.891 Personal history of nicotine dependence; Z90.49 Acquired absence of other specified parts of digestive tract; Z95.5 Presence of coronary angioplasty implant and graft; Z96.641 Presence of right artificial hip joint; Z99.2 Dependence on renal dialysis
CPT/HCPCS: 36415; 71046; 76705; 80048; 80053; 82550; 83880; 84484; 85025; 85610; 85730; 87040; 90935; 93005; 93306; 96365; 96375; 99291

== ENCOUNTER → 2019-03-20 | Outpatient (CLI) | payer MEDICARE, BC ==
[2019-03-20 17:33] LABS: Hemoglobin A1C 7.7 % (4.0-6.0)
== END | disposition home or self-care (01) ==
LOC: LABWHC1 09:52
PROVIDERS: ATTEND Internal Medicine
DX: E11.65 Type 2 diabetes mellitus with hyperglycemia (principal)
CPT/HCPCS: 36415; 83036

== ENCOUNTER → 2019-09-16 | Outpatient (CLI) | payer MEDICARE, BC ==
--- NOTE | 2019-09-17 11:01 | XR ---
EXAMINATION TYPE: XR chest 2V DATE OF EXAM: 09/17/2019 COMPARISON: NONE HISTORY: Shortness of breath. Left-sided chest pain after fall. TECHNIQUE: Frontal and lateral views of the chest are obtained. FINDINGS: Marked improvement in aeration of the lungs. There is no focal air space opacity, pleural e ffusion, or pneumothorax seen. There is tortuosity of the descending thoracic aorta. The cardiac silh ouette size is mildly enlarged. The osseous structures are grossly intact. Moderate multilevel dege nerative change of the spine. IMPRESSION: Marked improved aeration of the lungs in comparison the prior of 2018. No acute cardiopu lmonary process. No grossly displaced fracture. If there is persistent left rib pain left rib radiogr aphs could be considered for further evaluation.
== END | disposition home or self-care (01) ==
LOC: RADXRMAIN 09:18
PROVIDERS: ATTEND Internal Medicine
DX: R06.02 Shortness of breath (principal)
CPT/HCPCS: 71046

== ENCOUNTER 2020-01-15 11:05 | Observation (INO) | payer MEDICARE, BC ==
--- NOTE | 2020-01-15 11:41 | ED ---
General Adult HPI - General Chief complaint: Recheck/Abnormal Lab/Rx Stated complaint: Needs dialysis Time Seen by Provider: 01/15/20 11:23 Source: patient Mode of arrival: ambulatory Limitations: no limitations - History of Present Illness Initial comments: Dictation was produced using [employer] dictation software. please excuse any grammatical, word or spelling errors. This patient was cared for during a federal and state declared state of emerg ency secondary to Covid 19 Chief Complaint: 64-year-old male past medical history of end-stage renal disease presents to the emergency department for dialysis. History of Present Illness: 64-year-old male he has past medical history of end- stage renal disease. Patient states he gets dialysis Sunday. Patient is a question for coronavirus. They were not volume go to dialysis center for dialysis because his results for coronavirus has not returned yet. He was instructed to come to the emergency department today for dialysis. Patient has no trouble breathing. No chest pain or abdominal pain. Denies any swelling. Patient has no medical complaints at this time The ROS documented in this emergency department record has been reviewed and confirmed by me. Those systems with pertinent positive or negative responses have been documented in the HPI. All other systems are other negative and/or noncontributory. PHYSICAL EXAM: General Impression: Alert and oriented x3, not in acute distress HEENT: Normocephalic atraumatic, extra-ocular movements intact, pupils equal and reactive to light bilaterally, mucous membranes moist. Cardiovascular: Heart regular rate and rhythm Chest: Able to complete full sentences, no retractions, no tachypnea Abdomen: abdomen soft, non-tender, non-distended, no organomegaly Musculoskeletal: Pulses present and equal in all extremities, no peripheral edema Motor: no focal deficits noted Neurological: CN II-XII grossly intact, no focal motor or sensory deficits noted Skin: Intact with no visualized rashes Psych: Normal affect and mood ED course: 64-year-old male presents to the emergency department for dialysis. Vital signs upon arrival are within acceptable limits. Patient last received dialysis on Sunday. He is not allowed to get dialysis at his usual dialysis site due to potential possibility of patient having coronavirus. Laboratory evaluation obtained. CBC and metabolic panel within acceptable limits. Patient's renal markers are normal that high liquid elevated from lack of dialysis. While patient is in emergency department he did get his results for his Vargas virus test. He reports that he is positive. Discussed patient case with patient's warehouse engineer Dr. Langford. She recommended the patient be admitted observation for dialysis given that he will not be able to get dialysis at his usual dialysis Center site because of coronavirus positive result. Discussed patient case with Dr. Chao who is willing to accept patients care for observation. Patient has no respiratory issues. He has stable vitals - Related Data Home Medications Medication Instructions Recorded Confirmed Aspirin [Adult Low Dose Aspirin EC] 81 mg PO DAILY 10/23/16 02/27/19 Atorvastatin [Lipitor] 10 mg PO HS 10/23/16 02/27/19 Ergocalciferol (Vitamin D2) 50,000 unit PO Q14D 10/23/16 02/27/19 [Vitamin D2] Pyridoxine [Vitamin B-6] 100 mg PO DAILY 08/29/17 02/27/19 diphenhydrAMINE [Benadryl] 25 mg PO BID 08/29/17 02/27/19 Folic Acid 0.8 mg PO DAILY 12/07/17 02/27/19 Metoprolol Succinate (ER) [Toprol 50 mg PO DAILY 05/08/18 02/27/19 XL] Calcium Acetate [PhosLo] 2,668 mg PO AC-TID 09/12/18 02/27/19 Cyanocobalamin [Vitamin B-12] 500 mcg PO DAILY 09/12/18 02/27/19 Furosemide [Lasix] 80 mg PO DAILY 09/12/18 02/27/19 Levothyroxine Sodium [Synthroid] 300 mcg PO DAILY 10/25/18 02/27/19 INSULIN ASPART (NovoLOG) [NovoLOG 9 units SQ AC-BRKFST 10/30/18 02/27/19 (formulary)] INSULIN ASPART (NovoLOG) [NovoLOG 12 unit SQ AC-LUNCH 10/30/18 02/27/19 (formulary)] INSULIN ASPART (NovoLOG) [NovoLOG 12 unit SQ AC-SUPPER 10/30/18 02/27/19 (formulary)] Insulin NPH Human Isophane 14 unit SQ BID 10/30/18 02/27/19 [NovoLIN N] Polyethylene Glycol 3350 [Miralax] 17 gm PO DAILY 12/10/18 02/27/19 Dicyclomine [Bentyl] 20 mg PO QID 02/27/19 02/27/19 Omeprazole [PriLOSEC] 20 mg PO AC-BID 02/27/19 02/27/19 traMADol HCL [Ultram] 50 mg PO BID PRN 02/27/19 02/27/19 Previous Rx's Medication Instructions Recorded hydrALAZINE HCL [Apresoline] 25 mg PO BID #60 tab 03/03/19 Allergies Allergy/AdvReac Type Severity Reaction Status Date / Time No Known Allergies Allergy Verified 02/27/19 20:21 Review of Systems ROS Statement: Those systems with pertinent positive or pertinent negative responses have been documented in the HPI. ROS Other: All systems not noted in ROS Statement are negative. Past Medical History Past Medical History: Heart Failure, Diabetes Mellitus, Dialysis, Hyperlipidemia, Hypertension, Renal Disease Additional Past Medical History / Comment(s): 50 ounces fluid restrictions per day.ESRD with hemodailysis MWF- abdominal pain/nausea, hyperkalemia, chronic anemia, IDDM type II, neuropathy bilateral feet, bilateral eye retinopathy and leaking vessel behind R eye and recently told also now behind L eye, past R great toe diabetic ulcer which was healed thru [facility] History of Any Multi-Drug Resistant Organisms: None Reported Past Surgical History: Cholecystectomy, Heart Catheterization With Stent, Joint Replacement, Orthopedic Surgery Additional Past Surgical History / Comment(s): PCI with stent in 2008, L arm graft for dialysis, R eye injections/laser surgery, R knee plate with screws, R total hip, 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 Past Anesthesia/Blood Transfusion Reactions: No Reported Reaction Additional Past Anesthesia/Blood Transfusion Reaction / Comment(s): Pt states he has woken during surgeries in the past. Date of Last Stent Placement:: 2008 Past Psychological History: No Psychological Hx Reported Smoking Status: Former smoker Past Alcohol Use History: None Reported Past Drug Use History: None Reported - Past Family History Mother Family Medical History: Congestive Heart Failure (CHF) Additional Family Medical History / Comment(s): Mother lived to be 89 yrs old. Father Family Medical History: Congestive Heart Failure (CHF) Additional Family Medical History / Comment(s): Father lived to be 93 yrs old. Brother(s) Family Medical History: Congestive Heart Failure (CHF) Additional Family Medical History / Comment(s): Brother at the age of 67yrs. General Exam Limitations: no limitations Course Vital Signs 01/15/20 11:25 Temperature 98.2 F Pulse Rate 77 Respiratory 18 Rate Blood Pressure 136/74 O2 Sat by Pulse 98 Oximetry Medical Decision Making - Lab Data Result diagrams: 01/15/20 11:52 01/15/20 11:52 Lab Results 01/15/20 01/15/20 Range/Units 11:52 11:52 WBC 6.4 (3.8-10.6) k/uL RBC 5.04 (4.30-5.90) m/uL Hgb 10.8 L (13.0-17.5) gm/dL Hct 33.7 L (39.0-53.0) % MCV 66.9 L (80.0-100.0) fL MCH 21.3 L (25.0-35.0) pg MCHC 31.9 (31.0-37.0) g/dL RDW 16.7 H (11.5-15.5) % Plt Count 117 L (150-450) k/uL Neutrophils % 60 % Lymphocytes % 22 % Monocytes % 7 % Eosinophils % 8 % Basophils % 1 % Neutrophils # 3.8 (1.3-7.7) k/uL Lymphocytes # 1.4 (1.0-4.8) k/uL Monocytes # 0.5 (0-1.0) k/uL Eosinophils # 0.5 (0-0.7) k/uL Basophils # 0.0 (0-0.2) k/uL Hypochromasia Marked Poikilocytosis Slight Anisocytosis Slight Microcytosis Marked Sodium 127 L (137-145) mmol/L Potassium 5.1 (3.5-5.1) mmol/L Chloride 90 L (98-107) mmol/L Carbon Dioxide 22 (22-30) mmol/L Anion Gap 15 mmol/L BUN 62 H (9-20) mg/dL Creatinine 10.33 H* (0.66-1.25) mg/dL Est GFR (CKD-EPI)AfAm 5 (>60 ml/min/1.73 sqM) Est GFR (CKD-EPI)NonAf 5 (>60 ml/min/1.73 sqM) Glucose 278 H (74-99) mg/dL Calcium 8.9 (8.4-10.2) mg/dL Disposition Clinical Impression: Dialysis patient, COVID-19 Disposition: ADMITTED IP TO THIS [facility] Condition: Good Referrals: Jazmin Castaneda MD [Primary Care Provider] - 1-2 days Decision Time: 12:58
[2020-01-15 12:03] LABS: Anisocytosis Slight; Basophils % (A) 1 %; Eosinophils # (A) 0.5 k/uL (0-0.7); Eosinophils % (A) 8 %; HCT 33.7 % (39.0-53.0); HGB 10.8 gm/dL (13.0-17.5); Hypochromasia Marked; Lymphocytes # (A) 1.4 k/uL (1.0-4.8); Lymphocytes % (A) 22 %; MCH 21.3 pg (25.0-35.0); MCHC 31.9 g/dL (31.0-37.0); MCV 66.9 fL (80.0-100.0); Mean Platelet Volume 7.2; Microcytosis Marked; Monocytes # (A) 0.5 k/uL (0-1.0); Monocytes % (A) 7 %; Neutrophils # (A) 3.8 k/uL (1.3-7.7); Neutrophils % (A) 60 %; Platelet Count 117 k/uL (150-450); Poikilocytosis Slight; RBC 5.04 m/uL (4.30-5.90); RDW 16.7 % (11.5-15.5); WBC 6.4 k/uL (3.8-10.6)
[2020-01-15 12:10] LABS: Calcium 8.9 mg/dL (8.4-10.2); Potassium 5.1 mmol/L (3.5-5.1)
[2020-01-15] MEDS ORDERED: NALOXONE 0.4 MG/ML 1 ML VIAL IV PRN (12:55)
[2020-01-15] MEDS: ONDANSETRON 4 MG/2 ML VIAL IVP PRN (17:41)
[2020-01-15] MEDS ORDERED: ONDANSETRON 4 MG/2 ML VIAL IVP STA (20:15)
[2020-01-15 22:05] LABS: Glucose,Whole Blood 297 mg/dL (75-99)
[2020-01-15] MEDS ORDERED: INSULIN REGULAR 100 UNIT/ML VIAL SQ ONE (22:28)
[2020-01-15] MEDS ORDERED: INSULIN ASPART (NovoLOG) 100 UNIT/ML VIAL SQ ONE (22:30)
[2020-01-15] MEDS: hydrALAZINE HCL 50 MG TAB PO SCH (22:42)
[2020-01-15] MEDS: ATORVASTATIN 10 MG TAB PO SCH (22:43)
[2020-01-15] MEDS: traMADol 50 MG TAB PO SCH (22:43)
[2020-01-15] MEDS: PANTOPRAZOLE 40 MG TABLET PO SCH (22:44)
[2020-01-16] MEDS: traZODone HCL 50 MG TAB PO PRN ×2 (00:19→21:41)
[2020-01-16] MEDS: ACETAMINOPHEN TAB 325 MG TAB PO PRN ×2 (00:21→19:44)
[2020-01-16 02:24] LABS: Glucose,Whole Blood 238 mg/dL (75-99)
[2020-01-16] MEDS: LEVOTHYROXINE 100 MCG TAB PO SCH (05:57)
[2020-01-16 07:31] LABS: Glucose,Whole Blood 226 mg/dL (75-99)
[2020-01-16] MEDS: INSULIN ASPART (NovoLOG) 100 UNIT/ML VIAL SQ SCH ×4 (08:04→21:37)
[2020-01-16] MEDS: METOPROLOL TARTRATE 50 MG TAB PO SCH (08:24)
[2020-01-16] MEDS: PANTOPRAZOLE 40 MG TABLET PO SCH ×2 (08:24→17:38)
[2020-01-16] MEDS: hydrALAZINE HCL 50 MG TAB PO SCH ×2 (08:24→21:34)
[2020-01-16] MEDS: FUROSEMIDE 80 MG TAB PO SCH (08:24)
[2020-01-16] MEDS: traMADol 50 MG TAB PO SCH ×2 (08:24→21:37)
[2020-01-16] MEDS: ASPIRIN 81 MG PO SCH (08:24)
--- NOTE | 2020-01-16 09:24 | P.NPCON ---
History of Present Illness - Reason for Consult Consult date: 01/16/20 end stage renal disease - Chief Complaint COVID: 19 positive - History of Present Illness This is a 64-year-old male with end-stage renal failure on dialysis on last 9 years. Had sore throat and low-grade temperature and his primary physician checked him for Coumadin and supposedly was positive. His dialysis unit asked him to come to the emergency room for dialysis as he had to be transferred to call with positive patient's dialysis unit. He was dialyzed yesterday. He has no complaints currently no fever chills cough no sore throat afebrile is able to walk. No nausea vomiting diarrhea abdominal pain He is on dialysis 3 hours 45 minutes and has about 2-1/2 L ultrafiltrate at usually Patient is known with diabetes mellitus, coronary artery disease with a stent in the past. Past Medical History Past Medical History: Heart Failure, Diabetes Mellitus, Dialysis, Hyperlipidemia, Hypertension, Renal Disease Additional Past Medical History / Comment(s): vitiligo, 50 ounces fluid restrictions per day.ESRD with hemodailysis MWF- abdominal pain/nausea, hyperkalemia, chronic anemia, IDDM type II, neuropathy bilateral feet, bilateral eye retinopathy and leaking vessel behind R eye and recently told also now behind L eye, past R great toe diabetic ulcer which was healed thru [facility] History of Any Multi-Drug Resistant Organisms: None Reported Past Surgical History: Cholecystectomy, Heart Catheterization With Stent, Joint Replacement, Orthopedic Surgery Additional Past Surgical History / Comment(s): PCI with stent in 2008, L arm graft for dialysis, R eye injections/laser surgery, R knee plate with screws, R total hip (2011), 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 Past Anesthesia/Blood Transfusion Reactions: No Reported Reaction Additional Past Anesthesia/Blood Transfusion Reaction / Comment(s): Pt states he has woken during surgeries in the past. Date of Last Stent Placement:: 2008 Past Psychological History: No Psychological Hx Reported Additional Psychological History / Comment(s): . Lives with his and 2 dogs. Pt uses cane to ambulate. He drives. Smoking Status: Former smoker Past Alcohol Use History: None Reported Additional Past Alcohol Use History / Comment(s): Pt started smoking as a teen and quit in 1989 Past Drug Use History: None Reported - Past Family History Mother Family Medical History: Congestive Heart Failure (CHF) Additional Family Medical History / Comment(s): Mother lived to be 89 yrs old. Father Family Medical History: Congestive Heart Failure (CHF) Additional Family Medical History / Comment(s): Father lived to be 93 yrs old. Brother(s) Family Medical History: Congestive Heart Failure (CHF) Additional Family Medical History / Comment(s): Brother at the age of 67yrs. Medications and Allergies Home Medications Medication Instructions Recorded Confirmed Type Aspirin [Adult Low Dose Aspirin EC] 81 mg PO DAILY 10/23/16 01/15/20 History Atorvastatin [Lipitor] 10 mg PO HS 10/23/16 01/15/20 History Ergocalciferol (Vitamin D2) 50,000 unit PO Q14D 10/23/16 01/15/20 History [Vitamin D2] Pyridoxine [Vitamin B-6] 100 mg PO DAILY 08/29/17 01/15/20 History diphenhydrAMINE [Benadryl] 25 mg PO DAILY 08/29/17 01/15/20 History Folic Acid 0.8 mg PO DAILY 12/07/17 01/15/20 History Calcium Acetate [PhosLo] 1,334 mg PO AC-TID 09/12/18 01/15/20 History Cyanocobalamin [Vitamin B-12] 500 mcg PO DAILY 09/12/18 01/15/20 History Furosemide [Lasix] 80 mg PO DAILY 09/12/18 01/15/20 History Levothyroxine Sodium [Synthroid] 300 mcg PO DAILY 10/25/18 01/15/20 History Omeprazole [PriLOSEC] 20 mg PO AC-BID 02/27/19 01/15/20 History traMADol HCL [Ultram] 50 mg PO BID 02/27/19 01/15/20 History Azithromycin [Zithromax Z-pack] See Taper PO DIRECTED 01/15/20 01/15/20 History Insulin NPH Hum/Reg Insulin Hm 12 units SQ AC-SUPPER 01/15/20 01/15/20 History [Relion Novolin 70-30 Flexpen] Insulin NPH Hum/Reg Insulin Hm 18 units SQ AC-BRKFST 01/15/20 01/15/20 History [Relion Novolin 70-30 Flexpen] Metoprolol Tartrate [Lopressor] 50 mg PO DAILY 01/15/20 01/15/20 History hydrALAZINE HCL [Apresoline] 50 mg PO BID 01/15/20 01/15/20 History Allergies Allergy/AdvReac Type Severity Reaction Status Date / Time No Known Allergies Allergy Verified 02/27/19 20:21 Physical Exam Vitals: Vital Signs Temp Pulse Pulse Pulse Resp BP BP 01/16/20 07:25 98.7 F 76 17 01/16/20 03:39 98.2 F 77 16 01/15/20 22:00 98.0 F 86 18 01/15/20 20:29 98.4 F 75 20 159/77 01/15/20 20:24 98.4 F 87 16 158/77 01/15/20 16:05 97.9 F 77 20 159/77 01/15/20 11:25 98.2 F 77 18 136/74 BP Pulse Ox 01/16/20 07:25 148/72 97 01/16/20 03:39 126/67 100 01/15/20 22:00 150/70 95 01/15/20 20:29 97 01/15/20 20:24 01/15/20 16:05 97 01/15/20 11:25 98 Intake and Output 01/15/20 01/16/20 01/16/20 22:59 06:59 14:59 Intake Total 300 540 Output Total 2300 Balance -2000 540 Intake: Oral 540 Hemodialysis 300 Output: Hemodialysis 2300 Other: # Voids 1 Weight 77.383 kg On examination is awake alert oriented comfortable. HEENT exam no JVP neck is supple no facial asymmetry Lungs are clear to auscultation good air entry bilaterally Heart sounds are unremarkable no murmur rub gallop Abdomen soft nontender no masses felt Extremity exam was trace edema Neurologically awake alert oriented Results - Lab Results Most recent lab results Calcium 8.9 mg/dL (8.4-10.2) 01/15/20 11:52 01/15/20 11:52 01/15/20 11:52 Assessment and Plan Plan: Impression 1. ESRD on dialysis Sunday with the left upper arm graft 2. Covid- 19 positive state mildly symptomatic with sore throat and low-grade temperature resolving 3. Diabetes mellitus with neuropathy and retinopathy. 4. History of coronary artery stent 5. Anemia of ESRD with hemoglobin 10.8 at target. 6. Mild degree of hyponatremia 127, secondary to high blood sugar 278, and additionally from free water intake. Recommendation 1. Patient will be discharged to the facility is dialysis unit at [facility] with excess Covid positive patient 2. He'll be dialyzed today before discharge
[2020-01-16 11:47] LABS: Glucose,Whole Blood 257 mg/dL (75-99)
[2020-01-16] MEDS: ONDANSETRON 4 MG/2 ML VIAL IVP PRN (12:04)
[2020-01-16 16:52] LABS: Glucose,Whole Blood 176 mg/dL (75-99)
[2020-01-16 19:47] VITALS: RESP 18
[2020-01-16] MEDS: ATORVASTATIN 10 MG TAB PO SCH (21:37)
[2020-01-16 21:41] LABS: Glucose,Whole Blood 322 mg/dL (75-99)
--- NOTE | 2020-01-16 23:51 | P.HPIM ---
History of Present Illness H&P Date: 01/16/20 Chief Complaint: ESRD, KATIE Tompkins is a 64 yo M with PMH of ESRD on MWF HD, T2DM who initially presented to his PCP on Sunday with sore throat. At that time he complained of sore throat and congestion and denied cough, fever, chills or shortness of breath. He was tested for COVID which did recently result positive. Due to his positive COVID status he was unable to receive hemodialysis at his usual outpatient center and thus presented to the ED. Today, he is asymptomatic from a respiratory standpoint and denies sore throat. On presentation vitals and temp wnl, labs for Cr of 10 and BUN 60 Review of Systems All systems: negative Constitutional: Denies chills, Denies fever Eyes: denies blurred vision, denies pain Ears, nose, mouth and throat: Denies headache, Denies sore throat Cardiovascular: Denies chest pain, Denies shortness of breath Respiratory: Denies cough Gastrointestinal: Denies abdominal pain, Denies diarrhea, Denies nausea, Denies vomiting Musculoskeletal: Denies myalgias Integumentary: Denies pruritus, Denies rash Neurological: Denies numbness, Denies weakness Psychiatric: Denies anxiety, Denies depression Endocrine: Denies fatigue, Denies weight change Past Medical History Past Medical History: Heart Failure, Diabetes Mellitus, Dialysis, Hyperlipidemia, Hypertension, Renal Disease Additional Past Medical History / Comment(s): vitiligo, 50 ounces fluid rest rictions per day.ESRD with hemodailysis MWF- abdominal pain/nausea, hyperkalemia, chronic anemia, IDDM type II, neuropathy bilateral feet, bilateral eye retinopathy and leaking vessel behind R eye and recently told also now behind L eye, past R great toe diabetic ulcer which was healed thru [facility] History of Any Multi-Drug Resistant Organisms: None Reported Past Surgical History: Cholecystectomy, Heart Catheterization With Stent, Joint Replacement, Orthopedic Surgery Additional Past Surgical History / Comment(s): PCI with stent in 2008, L arm graft for dialysis, R eye injections/laser surgery, R knee plate with screws, R total hip (2011), 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 Past Anesthesia/Blood Transfusion Reactions: No Reported Reaction Additional Past Anesthesia/Blood Transfusion Reaction / Comment(s): Pt states he has woken during surgeries in the past. Date of Last Stent Placement:: 2008 Past Psychological History: No Psychological Hx Reported Additional Psychological History / Comment(s): . Lives with his and 2 dogs. Pt uses cane to ambulate. He drives. Smoking Status: Former smoker Past Alcohol Use History: None Reported Additional Past Alcohol Use History / Comment(s): Pt started smoking as a teen and quit in 1989 Past Drug Use History: None Reported - Past Family History Mother Family Medical History: Congestive Heart Failure (CHF) Additional Family Medical History / Comment(s): Mother lived to be 89 yrs old. Father Family Medical History: Congestive Heart Failure (CHF) Additional Family Medical History / Comment(s): Father lived to be 93 yrs old. Brother(s) Family Medical History: Congestive Heart Failure (CHF) Additional Family Medical History / Comment(s): Brother at the age of 67yrs. Medications and Allergies Home Medications Medication Instructions Recorded Confirmed Type Aspirin [Adult Low Dose Aspirin EC] 81 mg PO DAILY 10/23/16 01/15/20 History Atorvastatin [Lipitor] 10 mg PO HS 10/23/16 01/15/20 History Ergocalciferol (Vitamin D2) 50,000 unit PO Q14D 10/23/16 01/15/20 History [Vitamin D2] Pyridoxine [Vitamin B-6] 100 mg PO DAILY 08/29/17 01/15/20 History diphenhydrAMINE [Benadryl] 25 mg PO DAILY 08/29/17 01/15/20 History Folic Acid 0.8 mg PO DAILY 12/07/17 01/15/20 History Calcium Acetate [PhosLo] 1,334 mg PO AC-TID 09/12/18 01/15/20 History Cyanocobalamin [Vitamin B-12] 500 mcg PO DAILY 09/12/18 01/15/20 History Furosemide [Lasix] 80 mg PO DAILY 09/12/18 01/15/20 History Levothyroxine Sodium [Synthroid] 300 mcg PO DAILY 10/25/18 01/15/20 History Omeprazole [PriLOSEC] 20 mg PO AC-BID 02/27/19 01/15/20 History traMADol HCL [Ultram] 50 mg PO BID 02/27/19 01/15/20 History Azithromycin [Zithromax Z-pack] See Taper PO DIRECTED 01/15/20 01/15/20 History Insulin NPH Hum/Reg Insulin Hm 12 units SQ AC-SUPPER 01/15/20 01/15/20 History [Relion Novolin 70-30 Flexpen] Insulin NPH Hum/Reg Insulin Hm 18 units SQ AC-BRKFST 01/15/20 01/15/20 History [Relion Novolin 70-30 Flexpen] Metoprolol Tartrate [Lopressor] 50 mg PO DAILY 01/15/20 01/15/20 History hydrALAZINE HCL [Apresoline] 50 mg PO BID 01/15/20 01/15/20 History Allergies Allergy/AdvReac Type Severity Reaction Status Date / Time No Known Allergies Allergy Verified 02/27/19 20:21 Physical Exam Vitals: Vital Signs Temp Pulse Pulse Resp BP Pulse Ox 01/16/20 19:43 98.6 F 74 18 123/72 97 01/16/20 16:00 87 70 16 01/16/20 15:58 98.4 F 70 150/76 01/16/20 14:57 98.4 F 71 16 154/63 97 01/16/20 08:00 87 76 17 01/16/20 07:25 98.7 F 76 17 148/72 97 01/16/20 03:39 98.2 F 77 16 126/67 100 Intake and Output 01/16/20 01/16/20 01/17/20 14:59 22:59 06:59 Intake Total 100 Output Total 3000 Balance 100 -3000 Intake: Oral 100 Output: Hemodialysis 3000 Other: # Voids 1 General: well nourished, well developed, NAD. Vitals reviewed Eyes: PERRL, EOMI, conjunctiva normal HENT: normocephalic, mucus membranes moist Neck: supple, no JVD Lungs: normal respiratory effort, no wheezes or rales CV: Regular rate and rhythm, no murmur. Peripheral pulses 2+ Abdomen: soft, nondistended, no organomegaly Lymph: no cervical or axillary LAD Skin: warm and dry. Neuro: A&Ox3, normal mood and affect Results CBC & Chem 7: 01/15/20 11:52 01/15/20 11:52 Labs: Abnormal Lab Results - Last 24 Hours (Table) 07/10/0201/16/20 01/16/20 Range/Units 02:21 07:26 11:45 POC Glucose (mg/dL) 238 H 226 H 257 H (75-99) mg/dL 01/16/20 01/16/20 Range/Units 16:51 21:32 POC Glucose (mg/dL) 176 H 322 H (75-99) mg/dL Thrombosis Risk Factor Assmnt - Choose All That Apply Each Factor Represents 1 point: Obesity (BMI >25) Each Risk Factor Represents 2 Points: Age 61-74 years Thrombosis Risk Factor Assessment Total Risk Factor Score: 3 Thrombosis Risk Factor Assessment Level: Moderate Risk Assessment and Plan (1) End stage renal disease on dialysis due to type 2 diabetes mellitus Current Visit: Yes Status: Acute Code(s): E11.22 - TYPE 2 DIABETES MELLITUS W DIABETIC CHRONIC KIDNEY DISEASE; N18.6 - END STAGE RENAL DISEASE; Z99.2 - DEPENDENCE ON RENAL DIALYSIS SNOMED Code(s): 24099634797103 (2) COVID-19 Current Visit: Yes Status: Acute Code(s): U07.1 - COVID-19 SNOMED Code(s): 291600372 (3) Dialysis patient Current Visit: Yes Status: Acute Code(s): Z99.2 - DEPENDENCE ON RENAL DIALYSIS SNOMED Code(s): 454217492 (4) Cardiorenal syndrome with renal failure Current Visit: No Status: Acute Code(s): I13.10 - HYP HRT & CHR KDNY DIS W/O HRT FAIL, W STG 1-4/UNSP CHR KDNY SNOMED Code(s): 710696868 Plan: 1. ESRD on HD. Nephrology consulted and plan for inpatient HD. Will arrange for outpatient dialysis for 2 week duration of home quarantine. Continue lasix 2. T2DM. Accucheck, sliding scale 3. CAD. continue metoprolol and lipitor
[2020-01-17] MEDS: LEVOTHYROXINE 100 MCG TAB PO SCH (05:40)
[2020-01-17] MEDS: ACETAMINOPHEN TAB 325 MG TAB PO PRN (05:40)
[2020-01-17 07:12] LABS: Glucose,Whole Blood 246 mg/dL (75-99)
[2020-01-17] MEDS: ASPIRIN 81 MG PO SCH (08:41)
[2020-01-17] MEDS: METOPROLOL TARTRATE 50 MG TAB PO SCH (08:41)
[2020-01-17] MEDS: PANTOPRAZOLE 40 MG TABLET PO SCH (08:41)
[2020-01-17] MEDS: INSULIN ASPART (NovoLOG) 100 UNIT/ML VIAL SQ SCH ×2 (08:41→12:44)
[2020-01-17] MEDS: traMADol 50 MG TAB PO SCH (08:41)
[2020-01-17] MEDS: hydrALAZINE HCL 50 MG TAB PO SCH (08:41)
[2020-01-17] MEDS: FUROSEMIDE 80 MG TAB PO SCH (08:41)
[2020-01-17] MEDS: ONDANSETRON 4 MG/2 ML VIAL IVP PRN (08:44)
--- NOTE | 2020-01-17 10:02 | P.PN ---
Subjective Progress Note Date: 01/17/20 Principal diagnosis: This is a 64-year-old male with end-stage renal failure on dialysis on last 9 years. Had sore throat and low-grade temperature and his primary physician checked him for CoVID and supposedly was positive. His dialysis unit asked him to come to the emergency room for dialysis as he had to be transferred to A cOVID positive patient's dialysis unit. He was dialyzed on 01/16/2020 yesterday. He has no complaints currently no fever chills cough no sore throat afebrile is able to walk. No nausea vomiting diarrhea abdominal pain He is on dialysis 3 hours 45 minutes and has about 2-1/2 L ultrafiltrate at usually Patient is known with diabetes mellitus, coronary artery disease with a stent in the past. Objective - Vital Signs Vital signs: Vital Signs Temp 97.8 F 01/17/20 04:52 Pulse 75 01/17/20 04:52 Resp 18 01/17/20 04:52 BP 170/103 01/17/20 04:52 Pulse Ox 95 01/17/20 04:52 Intake & Output 01/16/20 01/17/20 01/17/20 18:59 06:59 18:59 Intake Total 100 Output Total 3000 Balance -2900 Intake: Oral 100 Output: Hemodialysis 3000 Other: # Voids 1 0 On examination is awake alert oriented comfortable. HEENT exam no JVP neck is supple no facial asymmetry Lungs are clear to auscultation good air entry bilaterally Heart sounds are unremarkable no murmur rub gallop Abdomen soft nontender no masses felt Extremity exam was trace edema Neurologically awake alert oriented - Labs CBC & Chem 7: 01/15/20 11:52 01/15/20 11:52 Labs: Abnormal Lab Results - Last 24 Hours (Table) 01/16/20 01/16/20 01/16/20 Range/Units 11:45 16:51 21:32 POC Glucose (mg/dL) 257 H 176 H 322 H (75-99) mg/dL 01/17/20 Range/Units 07:11 POC Glucose (mg/dL) 246 H (75-99) mg/dL Assessment and Plan Plan: Impression 1. ESRD on dialysis Sunday with the left upper arm graft 2. Covid- 19 positive state mildly symptomatic with sore throat and low-grade temperature resolved. Completely asymptomatic today 3. Diabetes mellitus with neuropathy and retinopathy. 4. History of coronary artery stent 5. Anemia of ESRD with hemoglobin 10.8 at target. 6. Mild degree of hyponatremia 127, secondary to high blood sugar 278, and additionally from free water intake. Recommendation 1. Patient will be discharged to the dialysis unit at [facility] with Covid positive patient 2. He can be discharged and can be admitted to the [facility] dialysis un it where the catheter to the Covid positive patient's. He'll be switched over to Sunday
[2020-01-17 11:47] VITALS: BP 148/78; PULSE 91; TEMP 98.9
[2020-01-17 11:57] LABS: Glucose,Whole Blood 295 mg/dL (75-99)
--- NOTE | 2020-01-18 00:27 | DS ---
DISCHARGE SUMMARY I am covering for Dr. Chao. FINAL DIAGNOSES: 1. End stage renal disease, on hemodialysis. 2. Diabetes mellitus type 2. 3. Covid 19 acute. 4. Chronic kidney disease. 5. Cardiorenal syndrome. 6. Diabetes mellitus type 2. 7. Anemia, normocytic anemia of chronic. 8. Hyponatremia. 9. History of congestive heart failure EF unknown. 10.History of hypertension. 11.Hyperlipidemia. 14.Retinopathy. 15.History of coronary artery disease/stent. 16.Remote history of nicotine dependence. 17.FULL CODE. DISCHARGE DISPOSITION: The patient will be discharged in stable condition with guarded prognosis. Total time taken 35 minutes. HISTORY OF PRESENT ILLNESS: This 64-year-old gentleman with a past medical history of multiple medical problems admitted with features of ESRD, on hemodialysis. Patient is Covid positive. Outpatient dialysis arranged. Otherwise home quarantine also recommended. On exam, vitals are stable. Cardiovascular S1, S2. Abdomen soft. Nervous system: No focal deficits. Because of the Covid status and the patient unable to receive hemodialysis in the usual location and outpatient dialysis in [facility] has been suggested at this time. DISCHARGE ADVICE AND MEDICATIONS: Discharge diet is cardiac diet. Activity limited until follow up. Follow up with in 2-3 days follow the hemodialysis. Nephrology as recommended. Medications: Ecotrin 81 mg, hydralazine 50 mg p.o. b.i.d. , Benadryl 5 mg. Folic acid 0.8 daily, Lasix 80 mg p.o. daily, Lipitor 10 mg q.h.s., Lopressor 50 mg p.o. daily, PhosLo 1334 mg p.o. a.c, Prilosec 20 mg b.i.d, NPH 18 units subcu a.c. breakfast, NPH tolerance is 12 units a.c. supper. 1. Ultram 50 mg p.o. b.i..d. 2. Vitamin B12 500 mg p.o. daily. 3. Vitamin B1 1200 mg p.o. daily. 4. Levothyroxine 300 mcg. 5. Ultram 50 mg p.o. b.i.d. 6. Vitamin B12 500 mcg p.o. daily. 7. Vitamin B6 100 mg. 8. Vitamin D2 50,000 daily. 9. Zithromax taper. 10.Protonix 40 mg b.i.d. 11.Tylenol p.r.n. Once again the patient discharged in stable and stable condition with guarded prognosis. [email or web address] / IJN: [id number] / MTDD
--- NOTE | 2020-01-27 08:20 | CDI ---
Date: 01.27.2020 CDS/[employer] Assistant Name: Cele Worrell Phone: If any questions, call Arlene Mascorro Vocational Auto Body Instructor at [phone] Patient Name: Quoc Tompkins Admit Date: 01.15.20 Discharge Date: 01.17.20 ATTENTION: The [facility] Coding Staff appreciate your assistance in clarifying documentation. Please respond to the clarification below the line at the bottom and electronically sign. The [facility] Coding staff will review the response and follow-up if needed. Please note: Queries are made part of the Legal Health Record. If you have any questions, please contact the Vocational Auto Body Instructor. Dear Dr. Jones In your discharge summary you have documented the patient is COVID 19 positive in two different places, but the COVID lab results has not detected. Please clarify whether the patient has COVID 19. Thank you for your kind consideration. ITS POSITIVE PER DR JOHNSON DOCUMENTATION. PLEASE QUERY HIM. MTDD
--- NOTE | 2020-01-30 08:58 | CDI ---
Date: 01.30.2020 CDS/Campaign Specialist Name: Cele Worrell Phone: If any questions, call Arlene Mascorro Outbound Telemarketing Representative at [phone] Patient Name: Quoc Tompkins Admit Date: 01.15.20 Discharge Date: 01.17.20 ATTENTION: The [facility] Coding Staff appreciate your assistance in clarifying documentation. Please respond to the clarification below the line at the bottom and electronically sign. The [facility] Coding staff will review the response and follow-up if needed. Please note: Queries are made part of the Legal Health Record. If you have any questions, please contact the Outbound Telemarketing Representative. Dear Dr. Chao In your H&P you have documented the patient is COVID 19 positive, but the COVID lab results has not detected. Please clarify whether the patient has COVID 19. Thank you for your kind consideration. Previously had it and recovered MTDD
== END 2020-01-17 14:43 | disposition home or self-care (01) ==
LOC: EC 11:05 → 4SSUR 12:55 → INTOOBSV 12:55 → 4SSUR 20:11
PROVIDERS: ADMIT Family Medicine; ATTEND Family Medicine
DX: E11.22 Type 2 diabetes mellitus with diabetic chronic kidney disease (principal); N18.6 End stage renal disease; J02.9 Acute pharyngitis, unspecified; R50.9 Fever, unspecified; I13.2 Hypertensive heart and chronic kidney disease with heart failure and with stage 5 chronic kidney disease, or end stage renal disease; I50.9 Heart failure, unspecified; D63.1 Anemia in chronic kidney disease; E87.1 Hypo-osmolality and hyponatremia; E78.5 Hyperlipidemia, unspecified; E11.319 Type 2 diabetes mellitus with unspecified diabetic retinopathy without macular edema; I25.10 Atherosclerotic heart disease of native coronary artery without angina pectoris; E87.5 Hyperkalemia; E11.42 Type 2 diabetes mellitus with diabetic polyneuropathy; H54.62 Unqualified visual loss, left eye, normal vision right eye; Q79.8 Other congenital malformations of musculoskeletal system; L80 Vitiligo; E11.65 Type 2 diabetes mellitus with hyperglycemia; Z09 Encounter for follow-up examination after completed treatment for conditions other than malignant neoplasm; Z86.19 Personal history of other infectious and parasitic diseases; E66.9 Obesity, unspecified; Z68.29 Body mass index [BMI] 29.0-29.9, adult; Z99.2 Dependence on renal dialysis; Z95.5 Presence of coronary angioplasty implant and graft; Z87.891 Personal history of nicotine dependence; Z79.82 Long term (current) use of aspirin; Z79.899 Other long term (current) drug therapy; Z79.890 Hormone replacement therapy; Z79.4 Long term (current) use of insulin; Z79.891 Long term (current) use of opiate analgesic; Z86.31 Personal history of diabetic foot ulcer; Z90.49 Acquired absence of other specified parts of digestive tract; Z96.641 Presence of right artificial hip joint; Z98.890 Other specified postprocedural states; Z91.89 Other specified personal risk factors, not elsewhere classified; Z82.49 Family history of ischemic heart disease and other diseases of the circulatory system
CPT/HCPCS: 96376 ×3; 96374; 99284; 36415; 80048; 85025; G0257 ×2; G0378 ×3; U0003; J2405 ×3; 90935

== ENCOUNTER 2020-01-18 21:20 | Emergency (ER) | payer MEDICARE, BC ==
[2020-01-18] MEDS ORDERED: ACETAMINOPHEN TAB 325 MG TAB PO STA (22:05)
[2020-01-18] MEDS ORDERED: ONDANSETRON 4 MG/2 ML VIAL IVP STA (22:06)
[2020-01-18] MEDS ORDERED: MORPHINE SULFATE 2 MG/ML SYRINGE IVP STA (22:06)
[2020-01-18 22:38] LABS: Anisocytosis Slight; Basophils # (A) 0.1 k/uL (0-0.2); Basophils % (A) 1 %; Eosinophils # (A) 0.1 k/uL (0-0.7); Eosinophils % (A) 2 %; HCT 31.8 % (39.0-53.0); HGB 10.3 gm/dL (13.0-17.5); Hypochromasia Moderate; Lymphocytes # (A) 1.2 k/uL (1.0-4.8); Lymphocytes % (A) 12 %; MCH 21.4 pg (25.0-35.0); MCHC 32.2 g/dL (31.0-37.0); MCV 66.5 fL (80.0-100.0); Mean Platelet Volume 7.2; Microcytosis Marked; Monocytes # (A) 0.6 k/uL (0-1.0); Monocytes % (A) 7 %; Neutrophils # (A) 7.5 k/uL (1.3-7.7); Neutrophils % (A) 78 %; Platelet Count 127 k/uL (150-450); Poikilocytosis Slight; RBC 4.79 m/uL (4.30-5.90); RDW 16.3 % (11.5-15.5); WBC 9.7 k/uL (3.8-10.6)
--- NOTE | 2020-01-18 22:40 | XR ---
EXAMINATION TYPE: XR chest 1V portable DATE OF EXAM: 01/18/2020 COMPARISON: 09/16/2019 HISTORY: Short of breath. Fever. TECHNIQUE: FINDINGS: There is some diffuse pulmonary interstitial infiltrate. There is slight blunting of the co stophrenic angles. Thoracic aorta is atheromatous. Heart size is normal. IMPRESSION: Small pleural effusions with interstitial pulmonary infiltrates appears new compared to o ld exam and could relate to acute interstitial pneumonia. Acute heart failure not excluded.
[2020-01-18 22:46] LABS: Albumin 3.9 g/dL (3.5-5.0); Calcium 8.7 mg/dL (8.4-10.2); Potassium 5.2 mmol/L (3.5-5.1); Total Bilirubin 0.8 mg/dL (0.2-1.3); Total Protein 5.9 g/dL (6.3-8.2)
[2020-01-18 23:01] VITALS: TEMP 100.2
[2020-01-18 23:37] VITALS: BP 144/88; PULSE 88; RESP 18
[2020-01-18] MEDS ORDERED: MORPHINE SULFATE 4 MG/ML SYRINGE IVP STA (23:50)
--- NOTE | 2020-01-19 00:20 | ED ---
Extremity Problem HPI - General Chief complaint: Extremity Problem,Nontraumatic Stated complaint: Knee Pain Time Seen by Provider: 01/18/20 21:49 Source: patient Mode of arrival: wheelchair Limitations: no limitations - History of Present Illness Initial comments: 64 year-old male patient presents to the emergency department today for evaluation of bilateral knee pain. Patient states for the last 24 hours he has had increase in his usual knee pain. States that the pain worsens with walking. Does feel that his legs are little more swollen than usual. Denies any injury to the knees. Patient was diagnosed with COVID-19 last week during an admission to the hospital. Patient states he has not had any symptoms other than a mild fever. Patient denies any cough or congestion. Denies any shortness of breath or chest pain. He denies any nausea, vomiting, constipation, or diarrhea. He does have end-stage renal disease and gets dialysis Sunday, he has been keeping with his schedule. Patient denies any headache, neck pain, back pain, chest pain, shortness of breath, dizziness, weakness, abdominal pain, nausea, vomiting, or difficulties with bowel movements or urination. - Related Data Home Medications Medication Instructions Recorded Confirmed Aspirin [Adult Low Dose Aspirin EC] 81 mg PO DAILY 10/23/16 01/15/20 Atorvastatin [Lipitor] 10 mg PO HS 10/23/16 01/15/20 Ergocalciferol (Vitamin D2) 50,000 unit PO Q14D 10/23/16 01/15/20 [Vitamin D2] Pyridoxine [Vitamin B-6] 100 mg PO DAILY 08/29/17 01/15/20 diphenhydrAMINE [Benadryl] 25 mg PO DAILY 08/29/17 01/15/20 Folic Acid 0.8 mg PO DAILY 12/07/17 01/15/20 Calcium Acetate [PhosLo] 1,334 mg PO AC-TID 09/12/18 01/15/20 Cyanocobalamin [Vitamin B-12] 500 mcg PO DAILY 09/12/18 01/15/20 Furosemide [Lasix] 80 mg PO DAILY 09/12/18 01/15/20 Levothyroxine Sodium [Synthroid] 300 mcg PO DAILY 10/25/18 01/15/20 Omeprazole [PriLOSEC] 20 mg PO AC-BID 02/27/19 01/15/20 traMADol HCL [Ultram] 50 mg PO BID 02/27/19 01/15/20 Azithromycin [Zithromax Z-pack] See Taper PO DIRECTED 01/15/20 01/15/20 Insulin NPH Hum/Reg Insulin Hm 12 units SQ AC-SUPPER 01/15/20 01/15/20 [Relion Novolin 70-30 Flexpen] Insulin NPH Hum/Reg Insulin Hm 18 units SQ AC-BRKFST 01/15/20 01/15/20 [Relion Novolin 70-30 Flexpen] Metoprolol Tartrate [Lopressor] 50 mg PO DAILY 01/15/20 01/15/20 hydrALAZINE HCL [Apresoline] 50 mg PO BID 01/15/20 01/15/20 Previous Rx's Medication Instructions Recorded Acetaminophen Tab [Tylenol] 650 mg PO Q6HR PRN tab 01/17/20 Pantoprazole [Protonix] 40 mg PO AC-BID #30 tablet. 01/17/20 Allergies Allergy/AdvReac Type Severity Reaction Status Date / Time No Known Allergies Allergy Verified 01/18/20 21:38 Review of Systems ROS Statement: Those systems with pertinent positive or pertinent negative responses have been documented in the HPI. ROS Other: All systems not noted in ROS Statement are negative. Past Medical History Past Medical History: Heart Failure, Diabetes Mellitus, Dialysis, Hyperlipide minna, Hypertension, Renal Disease Additional Past Medical History / Comment(s): vitiligo, 50 ounces fluid restrictions per day.ESRD with hemodailysis MWF- abdominal pain/nausea, hyperkalemia, chronic anemia, IDDM type II, neuropathy bilateral feet, bilateral eye retinopathy and leaking vessel behind R eye and recently told also now behind L eye, past R great toe diabetic ulcer which was healed thru [facility] History of Any Multi-Drug Resistant Organisms: None Reported Past Surgical History: Cholecystectomy, Heart Catheterization With Stent, Joint Replacement, Orthopedic Surgery Additional Past Surgical History / Comment(s): PCI with stent in 2008, L arm graft for dialysis, R eye injections/laser surgery, R knee plate with screws, R total hip (2011), 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 Past Anesthesia/Blood Transfusion Reactions: No Reported Reaction Additional Past Anesthesia/Blood Transfusion Reaction / Comment(s): Pt states he has woken during surgeries in the past. Date of Last Stent Placement:: 2008 Past Psychological History: No Psychological Hx Reported Smoking Status: Former smoker Past Alcohol Use History: None Reported Past Drug Use History: None Reported - Past Family History Mother Family Medical History: Congestive Heart Failure (CHF) Additional Family Medical History / Comment(s): Mother lived to be 89 yrs old. Father Family Medical History: Congestive Heart Failure (CHF) Additional Family Medical History / Comment(s): Father lived to be 93 yrs old. Brother(s) Family Medical History: Congestive Heart Failure (CHF) Additional Family Medical History / Comment(s): Brother at the age of 67yrs. General Exam Limitations: no limitations General appearance: alert, in no apparent distress, other (This is a well- developed, well-nourished adult male patient in mild distress related to pain. Vital signs upon presentation are temperature 99.2F, pulse 92, respirations 24, blood pressure 136/72, pulse ox 95% on room air.) Eye exam: Present: normal appearance, PERRL, EOMI. Absent: scleral icterus, conjunctival injection, periorbital swelling ENT exam: Present: normal exam, normal oropharynx, mucous membranes moist Respiratory exam: Present: normal lung sounds bilaterally. Absent: respiratory distress, wheezes, rales, rhonchi, stridor Cardiovascular Exam: Present: regular rate, normal rhythm, normal heart sounds. Absent: systolic murmur, diastolic murmur, rubs, gallop, clicks GI/Abdominal exam: Present: soft, normal bowel sounds. Absent: distended, tenderness, guarding, rebound, rigid Extremities exam: Present: normal inspection, full ROM, tenderness (Anterior knee tenderness), normal capillary refill, other (Skin to the lower trauma is is pink, warm, dry. Cap refills less than 3 seconds. Pedal and posttibial pulses are 2+ and equal bilaterally. There is general swelling, nonpitting. No erythema overlying the knee joints.). Absent: pedal edema, joint swelling, calf tenderness Neurological exam: Present: alert, oriented X3, CN II-XII intact Psychiatric exam: Present: normal affect, normal mood Skin exam: Present: warm, dry, intact, normal color. Absent: rash Course Vital Signs 01/18/20 01/18/20 01/18/20 21:34 22:00 23:36 Temperature 99.2 F 100.2 F H Pulse Rate 92 88 Respiratory 24 18 Rate Blood Pressure 136/72 144/88 O2 Sat by Pulse 95 96 Oximetry Medical Decision Making - Medical Decision Making 64-year-old male patient presents to the emergency department today for evaluation of bilateral knee pain. Patient states he does have a history of arthritis with his pain is worse than usual. Physical examination does reveal general swelling to the legs which she states is not new. There is no erythema overlying the knees. Neurovascular status is intact. He denies any injury. Patient did have a mild fever upon arrival, labs were performed and are unremarkable for infection. BUN and Cr are elevated, but he does have ESRD with dialysis. Patient did test positive for COVID-19 last week, states his only symptom is been a low-grade fever. He denies shortness of breath, cough, or spu lasha production. He'll be discharged up with his primary care physician for recheck in 1-2 days. Return parameters discussed in detail. He verbalizes understanding and agrees with this plan. - Lab Data Result diagrams: 01/18/20 22:25 01/18/20 22:25 Lab Results 01/18/20 01/18/20 01/18/20 Range/Units 22:25 22:25 22:25 WBC 9.7 (3.8-10.6) k/uL RBC 4.79 (4.30-5.90) m/uL Hgb 10.3 L (13.0-17.5) gm/dL Hct 31.8 L (39.0-53.0) % MCV 66.5 L (80.0-100.0) fL MCH 21.4 L (25.0-35.0) pg MCHC 32.2 (31.0-37.0) g/dL RDW 16.3 H (11.5-15.5) % Plt Count 127 L (150-450) k/uL Neutrophils % 78 % Lymphocytes % 12 % Monocytes % 7 % Eosinophils % 2 % Basophils % 1 % Neutrophils # 7.5 (1.3-7.7) k/uL Lymphocytes # 1.2 (1.0-4.8) k/uL Monocytes # 0.6 (0-1.0) k/uL Eosinophils # 0.1 (0-0.7) k/uL Basophils # 0.1 (0-0.2) k/uL Hypochromasia Moderate Poikilocytosis Slight Anisocytosis Slight Microcytosis Marked Sodium 133 L (137-145) mmol/L Potassium 5.2 H (3.5-5.1) mmol/L Chloride 91 L (98-107) mmol/L Carbon Dioxide 24 (22-30) mmol/L Anion Gap 18 mmol/L BUN 59 H (9-20) mg/dL Creatinine 9.95 H* (0.66-1.25) mg/dL Est GFR (CKD-EPI)AfAm 6 (>60 ml/min/1.73 sqM) Est GFR (CKD-EPI)NonAf 5 (>60 ml/min/1.73 sqM) Glucose 230 H (74-99) mg/dL Plasma Lactic Acid Yonny 0.9 (0.7-2.0) mmol/L Calcium 8.7 (8.4-10.2) mg/dL Total Bilirubin 0.8 (0.2-1.3) mg/dL AST 21 (17-59) U/L ALT 15 (4-49) U/L Alkaline Phosphatase 122 (38-126) U/L Total Protein 5.9 L (6.3-8.2) g/dL Albumin 3.9 (3.5-5.0) g/dL - Radiology Data Radiology results: report reviewed, image reviewed One view x-ray of the chest is obtained. Report was reviewed in its entirety. Impression by Dr. Forrest shows small pleural effusions with interstitial pulmonary infiltrates appears new compared to old exam and could relate to acute interstitial pneumonia. Acute heart failure not excluded. Disposition Clinical Impression: Knee pain, bilateral Disposition: HOME SELF-CARE Condition: Good Instructions (If sedation given, give patient instructions): Knee Pain (ED) Additional Instructions: Rest. Take medication as directed. Follow up with the primary care physician for recheck in 1-2 days. Return to the emergency department for any new, worsening, or concerning symptoms. Is patient prescribed a controlled substance at d/c from ED?: No Referrals: Jazmin Castaneda MD [Primary Care Provider] - 1-2 days Time of Disposition: 00:39
[2020-01-19] MEDS ORDERED: ACET/COD 300 MG/30 MG STARTER PACK 6 TAB BTL PO STA (00:38)
== END 2020-01-19 01:14 | disposition home or self-care (01) ==
LOC: EC 21:20
DX: M25.561 Pain in right knee (principal); M25.562 Pain in left knee; N18.6 End stage renal disease; E11.22 Type 2 diabetes mellitus with diabetic chronic kidney disease; I13.2 Hypertensive heart and chronic kidney disease with heart failure and with stage 5 chronic kidney disease, or end stage renal disease; I50.9 Heart failure, unspecified; E78.5 Hyperlipidemia, unspecified; E11.21 Type 2 diabetes mellitus with diabetic nephropathy; E11.319 Type 2 diabetes mellitus with unspecified diabetic retinopathy without macular edema; Z79.4 Long term (current) use of insulin; Z79.82 Long term (current) use of aspirin; Z79.890 Hormone replacement therapy; Z79.899 Other long term (current) drug therapy; Z99.2 Dependence on renal dialysis; Z87.891 Personal history of nicotine dependence; Z98.890 Other specified postprocedural states; Z95.5 Presence of coronary angioplasty implant and graft; Z96.641 Presence of right artificial hip joint; Z96.651 Presence of right artificial knee joint
CPT/HCPCS: 80053; 83605; 85025; 87040; 71045; 99284; 96374; 96375; 96376; J2405; J2270

== ENCOUNTER 2020-01-19 14:55 | Observation (INO) | payer MEDICARE, BC ==
[2020-01-19 15:49] LABS: Anisocytosis Slight; Basophils % (A) 1 %; Eosinophils # (A) 0.1 k/uL (0-0.7); Eosinophils % (A) 2 %; Hypochromasia Slight; Lymphocytes # (A) 1.2 k/uL (1.0-4.8); Lymphocytes % (A) 18 %; MCH 20.3 pg (25.0-35.0); MCHC 31.1 g/dL (31.0-37.0); MCV 65.3 fL (80.0-100.0); Mean Platelet Volume 7.9; Microcytosis Marked; Monocytes # (A) 0.4 k/uL (0-1.0); Monocytes % (A) 6 %; Neutrophils # (A) 5.1 k/uL (1.3-7.7); Neutrophils % (A) 72 %; Platelet Count 117 k/uL (150-450); Poikilocytosis Slight; RBC 4.91 m/uL (4.30-5.90); RDW 16.6 % (11.5-15.5); WBC 7.1 k/uL (3.8-10.6)
[2020-01-19 16:02] LABS: Albumin 3.7 g/dL (3.5-5.0); Calcium 8.7 mg/dL (8.4-10.2); Magnesium 1.2 mg/dL (1.6-2.3); Potassium 5.6 mmol/L (3.5-5.1); Total Bilirubin 0.7 mg/dL (0.2-1.3); Total Protein 5.7 g/dL (6.3-8.2)
--- NOTE | 2020-01-19 16:04 | XR ---
EXAMINATION TYPE: XR chest 1V portable DATE OF EXAM: 01/19/2020 COMPARISON: 01/18/2020 HISTORY: Shortness of breath TECHNIQUE: Frontal and lateral views of the chest are obtained. FINDINGS: Scattered senescent parenchymal changes noted. Hyperinflation compatible with COPD. Persistent right lower lobe infiltrate. Correlate clinically and progress studies are advised. Heart size is stable. Mediastinal structures are stable and grossly unremarkable. No evidence for hilar prominence. Degenerative changes dorsal spine. IMPRESSION: 1. Persistent right lower lobe infiltrate. Correlate clinically and progress studies are advised.
[2020-01-19 16:12] LABS: INR 1.1 (<1.2); Partial Thromboplastin Time 28.2 sec (22.0-30.0); Prothrombin Time 11.6 sec (9.0-12.0)
[2020-01-19 16:13] LABS: C Reactive Protein 177.1 mg/L (<10.0)
[2020-01-19 16:16] LABS: D-Dimer 1.13 mg/L FEU (<0.60)
--- NOTE | 2020-01-19 16:29 | ED ---
Recheck HPI - General Chief Complaint: Recheck/Abnormal Lab/Rx Stated Complaint: Sent for Dialysis/COVID Test again Time Seen by Provider: 01/19/20 15:13 Source: patient, RN notes reviewed, old records reviewed Mode of arrival: ambulatory Limitations: no limitations - History of Present Illness Initial Comments: This is a 64-year-old male DF for evaluation patient comes in for evaluation of recent diagnosis of COVID, patient also has a missing dialysis, has been a few days without dialysis ER visits. Patient has no recent travel history multiple sick contacts review the dialysis patient. Patient does not feel well over a week nauseous but denying any shortness of breath or feverspatient states to admitted recent positive test for COPD [place] Complaint: abnormal lab (Both dialysis labs and positive Kovic test) -: days(s) Returns Today for: Called Because of Abnormal Lab/Test Symptoms Since Prior Visit: no new symptoms (Weakness) Context: called for abnormal lab result (History of dialysis) Associated Symptoms: malaise - Related Data Home Medications Medication Instructions Recorded Confirmed Aspirin [Adult Low Dose Aspirin EC] 81 mg PO DAILY 10/23/16 01/15/20 Atorvastatin [Lipitor] 10 mg PO HS 10/23/16 01/15/20 Ergocalciferol (Vitamin D2) 50,000 unit PO Q14D 10/23/16 01/15/20 [Vitamin D2] Pyridoxine [Vitamin B-6] 100 mg PO DAILY 08/29/17 01/15/20 diphenhydrAMINE [Benadryl] 25 mg PO DAILY 08/29/17 01/15/20 Folic Acid 0.8 mg PO DAILY 12/07/17 01/15/20 Calcium Acetate [PhosLo] 1,334 mg PO AC-TID 09/12/18 01/15/20 Cyanocobalamin [Vitamin B-12] 500 mcg PO DAILY 09/12/18 01/15/20 Furosemide [Lasix] 80 mg PO DAILY 09/12/18 01/15/20 Levothyroxine Sodium [Synthroid] 300 mcg PO DAILY 10/25/18 01/15/20 Omeprazole [PriLOSEC] 20 mg PO AC-BID 02/27/19 01/15/20 traMADol HCL [Ultram] 50 mg PO BID 02/27/19 01/15/20 Azithromycin [Zithromax Z-pack] See Taper PO DIRECTED 01/15/20 01/15/20 Insulin NPH Hum/Reg Insulin Hm 12 units SQ AC-SUPPER 01/15/20 01/15/20 [Relion Novolin 70-30 Flexpen] Insulin NPH Hum/Reg Insulin Hm 18 units SQ AC-BRKFST 01/15/20 01/15/20 [Relion Novolin 70-30 Flexpen] Metoprolol Tartrate [Lopressor] 50 mg PO DAILY 01/15/20 01/15/20 hydrALAZINE HCL [Apresoline] 50 mg PO BID 01/15/20 01/15/20 Previous Rx's Medication Instructions Recorded Acetaminophen Tab [Tylenol] 650 mg PO Q6HR PRN tab 01/17/20 Pantoprazole [Protonix] 40 mg PO AC-BID #30 tablet. 01/17/20 Allergies Allergy/AdvReac Type Severity Reaction Status Date / Time No Known Allergies Allergy Verified 01/18/20 21:38 Review of Systems ROS Statement: Those systems with pertinent positive or pertinent negative responses have been documented in the HPI. ROS Other: All systems not noted in ROS Statement are negative. Past Medical History Past Medical History: Heart Failure, Diabetes Mellitus, Dialysis, Hyperlipidemia, Hypertension, Renal Disease Additional Past Medical History / Comment(s): vitiligo, 50 ounces fluid restrictions per day.ESRD with hemodailysis MWF- abdominal pain/nausea, hyperkalemia, chronic anemia, IDDM type II, neuropathy bilateral feet, bilateral eye retinopathy and leaking vessel behind R eye and recently told also now behind L eye, past R great toe diabetic ulcer which was healed thru [facility] History of Any Multi-Drug Resistant Organisms: None Reported Past Surgical History: Cholecystectomy, Heart Catheterization With Stent, Joint Replacement, Orthopedic Surgery Additional Past Surgical History / Comment(s): PCI with stent in 2008, L arm graft for dialysis, R eye injections/laser surgery, R knee plate with screws, R total hip (2011), 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 Past Anesthesia/Blood Transfusion Reactions: No Reported Reaction Additional Past Anesthesia/Blood Transfusion Reaction / Comment(s): Pt states he has woken during surgeries in the past. Date of Last Stent Placement:: 2008 Past Psychological History: No Psychological Hx Reported Smoking Status: Former smoker Past Alcohol Use History: None Reported Past Drug Use History: None Reported - Past Family History Mother Family Medical History: Congestive Heart Failure (CHF) Additional Family Medical History / Comment(s): Mother lived to be 89 yrs old. Father Family Medical History: Congestive Heart Failure (CHF) Additional Family Medical History / Comment(s): Father lived to be 93 yrs old. Brother(s) Family Medical History: Congestive Heart Failure (CHF) Additional Family Medical History / Comment(s): Brother at the age of 67yrs. General Exam Limitations: no limitations General appearance: alert, in no apparent distress Head exam: Present: atraumatic, normocephalic, normal inspection Eye exam: Present: normal appearance, PERRL, EOMI. Absent: scleral icterus, conjunctival injection, periorbital swelling ENT exam: Present: normal exam, mucous membranes moist Neck exam: Present: normal inspection. Absent: tenderness, meningismus, lymphadenopathy Respiratory exam: Present: normal lung sounds bilaterally. Absent: respiratory distress, wheezes, rales, rhonchi, stridor Cardiovascular Exam: Present: regular rate, normal rhythm, normal heart sounds. Absent: systolic murmur, diastolic murmur, rubs, gallop, clicks GI/Abdominal exam: Present: soft, normal bowel sounds. Absent: distended, tenderness, guarding, rebound, rigid Extremities exam: Present: normal inspection, full ROM, normal capillary refill. Absent: tenderness, pedal edema, joint swelling, calf tenderness Back exam: Present: normal inspection Neurological exam: Present: alert, oriented X3, CN II-XII intact Psychiatric exam: Present: normal affect, normal mood Skin exam: Present: warm, dry, intact, normal color. Absent: rash Course Vital Signs 01/19/20 01/19/20 14:57 15:39 Temperature 98.5 F Pulse Rate 89 Respiratory 16 18 Rate Blood Pressure 149/82 O2 Sat by Pulse 96 Oximetry - Reevaluation(s) Reevaluation #1: 01/19/20 17:01 Medical record is reviewed Reevaluation #2: 01/19/20 17:01 Patient feeling better did receive dialysis here in the ER Medical Decision Making - Medical Decision Making 64 male to be admitted for persistent abnormal values missed dialysis, patient also has positive Kovic test [place] for observation and evaluation regarding positive CO VID - Lab Data Result diagrams: 01/19/20 15:39 01/19/20 15:39 Lab Results 01/19/20 01/19/20 01/19/20 Range/Units 15:39 15:39 15:39 WBC 7.1 (3.8-10.6) k/uL RBC 4.91 (4.30-5.90) m/uL Hgb 10.0 L (13.0-17.5) gm/dL Hct 32.0 L (39.0-53.0) % MCV 65.3 L (80.0-100.0) fL MCH 20.3 L (25.0-35.0) pg MCHC 31.1 (31.0-37.0) g/dL RDW 16.6 H (11.5-15.5) % Plt Count 117 L (150-450) k/uL Neutrophils % 72 % Lymphocytes % 18 % Monocytes % 6 % Eosinophils % 2 % Basophils % 1 % Neutrophils # 5.1 (1.3-7.7) k/uL Lymphocytes # 1.2 (1.0-4.8) k/uL Monocytes # 0.4 (0-1.0) k/uL Eosinophils # 0.1 (0-0.7) k/uL Basophils # 0.0 (0-0.2) k/uL Hypochromasia Slight Poikilocytosis Slight Anisocytosis Slight Microcytosis Marked PT 11.6 (9.0-12.0) sec INR 1.1 (<1.2) APTT 28.2 (22.0-30.0) sec D-Dimer 1.13 H (<0.60) mg/L FEU Sodium 126 L (137-145) mmol/L Potassium 5.6 H (3.5-5.1) mmol/L Chloride 90 L (98-107) mmol/L Carbon Dioxide 23 (22-30) mmol/L Anion Gap 13 mmol/L BUN 67 H (9-20) mg/dL Creatinine 10.77 H* (0.66-1.25) mg/dL Est GFR (CKD-EPI)AfAm 5 (>60 ml/min/1.73 sqM) Est GFR (CKD-EPI)NonAf 4 (>60 ml/min/1.73 sqM) Glucose 368 H (74-99) mg/dL Plasma Lactic Acid Yonny (0.7-2.0) mmol/L Calcium 8.7 (8.4-10.2) mg/dL Magnesium 1.2 L (1.6-2.3) mg/dL Total Bilirubin 0.7 (0.2-1.3) mg/dL AST 32 (17-59) U/L ALT 15 (4-49) U/L Alkaline Phosphatase 105 (38-126) U/L Lactate Dehydrogenase 525 (313-618) U/L C-Reactive Protein 177.1 H (<10.0) mg/L Total Protein 5.7 L (6.3-8.2) g/dL Albumin 3.7 (3.5-5.0) g/dL 01/19/20 Range/Units 16:34 WBC (3.8-10.6) k/uL RBC (4.30-5.90) m/uL Hgb (13.0-17.5) gm/dL Hct (39.0-53.0) % MCV (80.0-100.0) fL MCH (25.0-35.0) pg MCHC (31.0-37.0) g/dL RDW (11.5-15.5) % Plt Count (150-450) k/uL Neutrophils % % Lymphocytes % % Monocytes % % Eosinophils % % Basophils % % Neutrophils # (1.3-7.7) k/uL Lymphocytes # (1.0-4.8) k/uL Monocytes # (0-1.0) k/uL Eosinophils # (0-0.7) k/uL Basophils # (0-0.2) k/uL Hypochromasia Poikilocytosis Anisocytosis Microcytosis PT (9.0-12.0) sec INR (<1.2) APTT (22.0-30.0) sec D-Dimer (<0.60) mg/L FEU Sodium (137-145) mmol/L Potassium (3.5-5.1) mmol/L Chloride (98-107) mmol/L Carbon Dioxide (22-30) mmol/L Anion Gap mmol/L BUN (9-20) mg/dL Creatinine (0.66-1.25) mg/dL Est GFR (CKD-EPI)AfAm (>60 ml/min/1.73 sqM) Est GFR (CKD-EPI)NonAf (>60 ml/min/1.73 sqM) Glucose (74-99) mg/dL Plasma Lactic Acid Yonny 1.3 (0.7-2.0) mmol/L Calcium (8.4-10.2) mg/dL Magnesium (1.6-2.3) mg/dL Total Bilirubin (0.2-1.3) mg/dL AST (17-59) U/L ALT (4-49) U/L Alkaline Phosphatase (38-126) U/L Lactate Dehydrogenase (313-618) U/L C-Reactive Protein (<10.0) mg/L Total Protein (6.3-8.2) g/dL Albumin (3.5-5.0) g/dL - EKG Data -: EKG Interpreted by Me (EKG is sinus rhythm rate of 82 [place] 162 QRS 118 QTc 453) - Radiology Data Radiology results: report reviewed (a chest x-ray is unchanged from prior significant right lower lobe infiltrate), image reviewed Disposition Clinical Impression: COVID-19, Chronic renal failure syndrome, Dialysis patient, Pneumonia Disposition: ADMITTED IP TO THIS HOSP Condition: Fair Is patient prescribed a controlled substance at d/c from ED?: No Referrals: Jzamin Castaneda MD [Primary Care Provider] - 1-2 days
[2020-01-19] MEDS ORDERED: IPRATROPIUM-ALBUTEROL 3 ML NEB INHALATION PRN (17:03)
[2020-01-19] MEDS ORDERED: PIPERACILLIN-TAZOBACTAM 3.375 GM in SODIUM CHLORIDE 0.9% 100 ML IVPB STA (17:03)
[2020-01-19] MEDS ORDERED: PNEUMONIA PROTOCOL UTILIZED 1 EACH MISC PO PRN (17:03)
[2020-01-19] MEDS ORDERED: LEVOFLOXACIN 750MG-D5W PMX 750 MG in DEXTROSE/WATER 1 150ML.BAG IVPB STA (17:03)
[2020-01-19] MEDS: hydrALAZINE HCL 50 MG TAB PO SCH (21:41)
[2020-01-19] MEDS: traMADol 50 MG TAB PO PRN (21:41)
[2020-01-19] MEDS: ATORVASTATIN 10 MG TAB PO SCH (21:41)
[2020-01-19 23:33] LABS: Ferritin 949.3 ng/mL (22.0-322.0)
[2020-01-19] MEDS ORDERED: HYDROcodone/APAP 7.5-325MG 1 EACH TAB PO ONE (23:42)
[2020-01-20] MEDS ORDERED: SIMETHICONE 40 MG/0.6 ML DROPS 2,000 MG/30 ML BOTTLE PO PRN
[2020-01-20] MEDS: ONDANSETRON 4 MG/2 ML VIAL IVP PRN ×3 (00:09→14:50)
[2020-01-20] MEDS: LEVOTHYROXINE 100 MCG TAB PO SCH (05:57)
[2020-01-20] MEDS: diphenhydrAMINE 25 MG CAP PO SCH (07:48)
[2020-01-20] MEDS: CALCIUM ACETATE 667 MG TAB PO SCH ×3 (07:49→17:32)
[2020-01-20] MEDS: ASPIRIN 81 MG PO SCH (07:49)
[2020-01-20] MEDS: METOPROLOL TARTRATE 50 MG TAB PO SCH (07:49)
[2020-01-20] MEDS: hydrALAZINE HCL 50 MG TAB PO SCH ×2 (07:49→21:31)
[2020-01-20] MEDS: PANTOPRAZOLE 40 MG TABLET PO SCH ×2 (07:49→17:32)
[2020-01-20] MEDS: PIPERACILLIN-TAZOBACTAM 3.375 GM in SODIUM CHLORIDE 0.9% 100 ML IVPB SCH ×2 (07:50→20:40)
[2020-01-20] MEDS: FUROSEMIDE 80 MG TAB PO SCH (07:52)
[2020-01-20] MEDS: PYRIDOXINE 50 MG TAB PO SCH (07:52)
[2020-01-20] MEDS: CYANOCOBALAMIN 500 MCG TAB PO SCH (07:53)
[2020-01-20 08:00] LABS: Glucose,Whole Blood 303 mg/dL (75-99)
[2020-01-20] MEDS: INSULIN ASPART (NovoLOG) 100 UNIT/ML VIAL SQ SCH ×4 (08:47→21:31)
[2020-01-20 11:21] LABS: Glucose,Whole Blood 257 mg/dL (75-99)
[2020-01-20 11:58] LABS: Anisocytosis Slight; Basophils % (A) 0 %; Eosinophils # (A) 0.2 k/uL (0-0.7); Eosinophils % (A) 2 %; HGB 9.8 gm/dL (13.0-17.5); Hypochromasia Slight; Lymphocytes # (A) 1.2 k/uL (1.0-4.8); Lymphocytes % (A) 16 %; MCH 20.1 pg (25.0-35.0); MCHC 30.7 g/dL (31.0-37.0); MCV 65.3 fL (80.0-100.0); Microcytosis Marked; Monocytes # (A) 0.5 k/uL (0-1.0); Monocytes % (A) 6 %; Neutrophils # (A) 5.6 k/uL (1.3-7.7); Neutrophils % (A) 73 %; Platelet Count 127 k/uL (150-450); Poikilocytosis Slight; RDW 16.4 % (11.5-15.5); WBC 7.6 k/uL (3.8-10.6)
[2020-01-20 12:16] LABS: Calcium 8.7 mg/dL (8.4-10.2); Magnesium 1.4 mg/dL (1.6-2.3); Potassium 4.7 mmol/L (3.5-5.1)
--- NOTE | 2020-01-20 13:21 | XR ---
EXAMINATION TYPE: XR chest 1V DATE OF EXAM: 01/20/2020 COMPARISON: 01/19/2020 INDICATION: Pneumonia TECHNIQUE: Single frontal view of the chest is obtained. FINDINGS: The heart size is normal. The pulmonary vasculature is upper limits of normal. No suspicious right lower lobe infiltrate is evident. A few peripheral Latoya B-lines may be present . Consider developing volume overload IMPRESSION: 1. Resolution previous right lower lobe infiltrate. 2. There may be some developing volume overload. Clinical correlation recommended.
--- NOTE | 2020-01-20 13:30 | US ---
EXAMINATION TYPE: US venous doppler duplex LE RT DATE OF EXAM: 01/20/2020 9:26 AM COMPARISON: NONE CLINICAL HISTORY: PAIN IN BACK OF RIGHT KNEE . Intermittent pain right knee for 1 year SIDE PERFORMED: right TECHNIQUE: The lower extremity deep venous system is examined utilizing real time linear array sonog nick with graded compression, doppler sonography and color-flow sonography. VESSELS IMAGED: External Iliac Vein (EIV) Common Femoral Vein Deep Femoral Vein Greater Saphenous Vein * Femoral Vein Popliteal Vein Small Saphenous Vein * Proximal Calf Veins (* superficial vessels) Right Leg: No evidence of DVT as visualized. Complex anechoic area right popliteal fossa = 6.3 x 1.9 x 4.3cm, Jeffries's cyst IMPRESSION: 1. Right lower extremity ultrasound negative for deep venous thrombosis. 2. Complex Popliteal cyst right popliteal fossa
[2020-01-20] MEDS ORDERED: MAGNESIUM SULFATE-D5W PMX 1 GM in DEXTROSE/WATER 1 100ML.BAG IVPB ONE (14:45)
[2020-01-20] MEDS: traMADol 50 MG TAB PO PRN ×2 (14:57→22:57)
[2020-01-20 16:49] LABS: Glucose,Whole Blood 257 mg/dL (75-99)
--- NOTE | 2020-01-20 16:58 | CONS ---
CONSULTATION REASON FOR CONSULT: End-stage renal disease. HISTORY OF PRESENT ILLNESS: Patient is a 64-year-old male with end-stage renal disease, on hemodialysis on a Sunday, Sunday, Sunday schedule. The patient was sent into the ER to conform his chaudhry virus status. He had tested positive initially; however, repeat test was negative and patient was going to be sent out to [facility] out of town if he was actually COVID-19 positive; however, since his second test came back negative, I had sent him to have another testing done and if he remains negative, patient does not need to go to the COVID positive clinic and he can continue to have his dialysis at the [place] unit. Initially, patient had complained of sore throat. He did have low-grade temp. However, he has not had any further symptoms since then. As far as the patient knows, no other contacts have tested positive. The patient was dialyzed yesterday. He denies any significant complaints currently. PAST MEDICAL HISTORY: End-stage renal disease, coronary artery disease, hypertension, CKD mineral bone disorder, dyslipidemia, hypothyroidism, gastroesophageal reflux disease, osteoarthritis, type 2 diabetes, neuropathy, retinopathy. PAST SURGICAL HISTORY: Cholecystectomy, cardiac catheterization, coronary stent placement, left arm AV graft, right total hip arthroplasty, left ankle surgery. right great toe debridement, colonoscopy, eye surgeries. SOCIAL HISTORY: Patient is a former smoker. No history of drug abuse or alcohol abuse. MEDICATIONS: At home prior to admission include hydralazine, Lopressor, insulin, Z pack, Prilosec, Synthroid, Lasix, B12, PhosLo, folic acid, Benadryl, vitamin B6, D2, Lipitor, aspirin, Protonix, Tylenol. ALLERGIES: None. PHYSICAL EXAMINATION: Patient is comfortable, awake, not in any acute distress. Alert, oriented x3. Blood pressure is 148/77, heart rate 89 per minute. He did have a temperature of 100.6 degrees Fahrenheit. Examination of lower extremities shows no significant edema. Patient has a left arm AV graft which is functional. Abdomen is soft, nontender. GAMBLING COUNSELLOR exam grossly intact. LABS: Show hemoglobin 9.8, sodium 130, potassium 4.7, BUN 45, creatinine 8.07. ASSESSMENT: 1. End-stage renal disease, on hemodialysis on a Sunday, Sunday, Sunday schedule, status post dialysis yesterday. Patient could be discharged with plans to follow up as outpatient for hemodialysis tomorrow. 2. COVID-19 positive x1 with 2 repeat tests being negative. No positive contacts per patient and as per history. 3. Low-grade fever with pain in the right knee. 4. History of low-grade fever about 5-6 days ago, at which time patient had tested positive for coronavirus. 5. Hyperkalemia, improved post dialysis yesterday. 6. Hypervolemic hyponatremia, improved post dialysis. 7. Anemia of chronic disease. PLAN: Next dialysis will be tomorrow. Patient can be dialyzed at the [facility] as two COVID status have been negative. Maintain other home medications including PhosLo and oral loop diuretics. Thank you for this consultation. MMODL / IJN: [id number] /
[2020-01-20] MEDS ORDERED: LEVOFLOXACIN 750MG-D5W PMX 750 MG in DEXTROSE/WATER 1 150ML.BAG IVPB SCH (17:15)
[2020-01-20 21:17] LABS: Glucose,Whole Blood 260 mg/dL (75-99)
[2020-01-20] MEDS: ATORVASTATIN 10 MG TAB PO SCH (21:31)
--- NOTE | 2020-01-20 23:17 | P.HPIM ---
History of Present Illness H&P Date: 01/20/20 Chief Complaint: dialysis Quoc Tompkins is a 64 yo M with hx of ESRD on HD who presented to the hospital to confirm COVID status. Approx 2 weeks ago he had a mild sore throat and has been asymptomatic since then. He was confirmed positive for COVID last week and due to this could not have his dialysis done outpatient. Pt was admitted last week and had HD done at the hospital, COVID test was negative at that time but due to his recent positive test he was required to go to [facility] but as pt had apparently recovered he was advised to go to the ED instead to confirm his status. On initial presentation his vitals were stable, labs with procalcitonin 1.3, COVID PCR negative. Review of Systems All systems: negative Constitutional: Denies chills, Denies fever Eyes: denies blurred vision, denies pain Ears, nose, mouth and throat: Denies headache, Denies sore throat Cardiovascular: Denies chest pain, Denies shortness of breath Respiratory: Denies cough Gastrointestinal: Denies abdominal pain, Denies diarrhea, Denies nausea, Denies vomiting Genitourinary: Reports as per HPI Musculoskeletal: Denies myalgias Integumentary: Denies pruritus, Denies rash Neurological: Denies numbness, Denies weakness Psychiatric: Denies anxiety, Denies depression Endocrine: Denies fatigue, Denies weight change Past Medical History Past Medical History: Heart Failure, Diabetes Mellitus, Dialysis, Hyperl ipidemia, Hypertension, Renal Disease Additional Past Medical History / Comment(s): vitiligo, 50 ounces fluid restrictions per day.ESRD with hemodailysis MWF- abdominal pain/nausea, hyperkalemia, chronic anemia, IDDM type II, neuropathy bilateral feet, bilateral eye retinopathy and leaking vessel behind R eye and recently told also now behind L eye, past R great toe diabetic ulcer which was healed thru [facility] History of Any Multi-Drug Resistant Organisms: None Reported Past Surgical History: Cholecystectomy, Heart Catheterization With Stent, Joint Replacement, Orthopedic Surgery Additional Past Surgical History / Comment(s): PCI with stent in 2008, L arm graft for dialysis, R eye injections/laser surgery, R knee plate with screws, R total hip (2011), 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 Past Anesthesia/Blood Transfusion Reactions: No Reported Reaction Additional Past Anesthesia/Blood Transfusion Reaction / Comment(s): Pt states he has woken during surgeries in the past. Date of Last Stent Placement:: 2008 Past Psychological History: No Psychological Hx Reported Additional Psychological History / Comment(s): . Lives with his and 2 dogs. Pt uses cane to ambulate. He drives. Smoking Status: Former smoker Past Alcohol Use History: None Reported Additional Past Alcohol Use History / Comment(s): Pt started smoking as a teen and quit in 1989 Past Drug Use History: None Reported - Past Family History Mother Family Medical History: Congestive Heart Failure (CHF) Additional Family Medical History / Comment(s): Mother lived to be 89 yrs old. Father Family Medical History: Congestive Heart Failure (CHF) Additional Family Medical History / Comment(s): Father lived to be 93 yrs old. Brother(s) Family Medical History: Congestive Heart Failure (CHF) Additional Family Medical History / Comment(s): Brother at the age of 67yrs. Medications and Allergies Home Medications Medication Instructions Recorded Confirmed Type Aspirin [Adult Low Dose Aspirin EC] 81 mg PO DAILY 10/23/16 01/19/20 History Atorvastatin [Lipitor] 10 mg PO HS 10/23/16 01/19/20 History Ergocalciferol (Vitamin D2) 50,000 unit PO Q14D 10/23/16 01/19/20 History [Vitamin D2] Pyridoxine [Vitamin B-6] 100 mg PO DAILY 08/29/17 01/19/20 History diphenhydrAMINE [Benadryl] 25 mg PO DAILY 08/29/17 01/19/20 History Folic Acid 0.8 mg PO DAILY 12/07/17 01/19/20 History Calcium Acetate [PhosLo] 1,334 mg PO AC-TID 09/12/18 01/19/20 History Cyanocobalamin [Vitamin B-12] 500 mcg PO DAILY 09/12/18 01/19/20 History Furosemide [Lasix] 80 mg PO DAILY 09/12/18 01/19/20 History Levothyroxine Sodium [Synthroid] 300 mcg PO DAILY 10/25/18 01/19/20 History Omeprazole [PriLOSEC] 20 mg PO AC-BID 02/27/19 01/19/20 History traMADol HCL [Ultram] 50 mg PO BID 02/27/19 01/19/20 History Insulin NPH Hum/Reg Insulin Hm 12 units SQ AC-SUPPER 01/15/20 01/19/20 History [Relion Novolin 70-30 Flexpen] Insulin NPH Hum/Reg Insulin Hm 18 units SQ AC-BRKFST 01/15/20 01/19/20 History [Relion Novolin 70-30 Flexpen] Metoprolol Tartrate [Lopressor] 50 mg PO DAILY 01/15/20 01/19/20 History hydrALAZINE HCL [Apresoline] 50 mg PO BID 01/15/20 01/19/20 History Acetaminophen Tab [Tylenol] 650 mg PO Q6HR PRN tab 01/17/20 01/19/20 Rx Pantoprazole [Protonix] 40 mg PO AC-BID #30 tablet. 01/17/20 01/19/20 Rx Allergies Allergy/AdvReac Type Severity Reaction Status Date / Time No Known Allergies Allergy Verified 01/19/20 17:23 Physical Exam Vitals: Vital Signs Temp Pulse Resp BP Pulse Ox 01/20/20 19:00 98.9 F 88 20 144/76 94 L 01/20/20 15:00 98.2 F 82 18 127/68 96 01/20/20 07:00 98.4 F 89 16 148/77 94 L 01/20/20 00:41 100.6 F H 95 16 155/75 92 L Intake and Output 01/20/20 01/20/20 01/21/20 14:59 22:59 06:59 Intake Total 540 340 Balance 540 340 Intake: Intake, IV Titration 100 Amount Piperacillin-Tazobactam 3 100 .375 gm In Sodium Chloride 0.9% 100 ml @ 25 mls/hr IVPB Q12H [facility] Rx# :[id number] Oral 540 240 Other: # Voids 1 General: well nourished, well developed, NAD. Vitals reviewed Eyes: PERRL, EOMI, conjunctiva normal HENT: normocephalic, mucus membranes moist Neck: supple, no JVD Lungs: normal respiratory effort, no wheezes or rales CV: Regular rate and rhythm, no murmur. Peripheral pulses 2+ Abdomen: soft, nondistended, no organomegaly Lymph: no cervical or axillary LAD Skin: warm and dry. Neuro: A&Ox3, normal mood and affect Results CBC & Chem 7: 01/20/20 11:26 01/20/20 11:26 Labs: Abnormal Lab Results - Last 24 Hours (Table) 01/19/20 01/19/20 01/20/20 Range/Units 15:39 15:39 07:59 Hgb (13.0-17.5) gm/dL Hct (39.0-53.0) % MCV (80.0-100.0) fL MCH (25.0-35.0) pg MCHC (31.0-37.0) g/dL RDW (11.5-15.5) % Plt Count (150-450) k/uL Sodium (137-145) mmol/L Chloride (98-107) mmol/L BUN (9-20) mg/dL Creatinine (0.66-1.25) mg/dL Glucose (74-99) mg/dL POC Glucose (mg/dL) 303 H (75-99) mg/dL Magnesium (1.6-2.3) mg/dL Ferritin 949.3 H (22.0-322.0) ng/mL Procalcitonin 1.25 H (0.02-0.09) ng/mL 01/20/20 01/20/20 01/20/20 Range/Units 11:20 11:26 11:26 Hgb 9.8 L (13.0-17.5) gm/dL Hct 32.0 L (39.0-53.0) % MCV 65.3 L (80.0-100.0) fL MCH 20.1 L (25.0-35.0) pg MCHC 30.7 L (31.0-37.0) g/dL RDW 16.4 H (11.5-15.5) % Plt Count 127 L (150-450) k/uL Sodium 130 L (137-145) mmol/L Chloride 93 L (98-107) mmol/L BUN 45 H (9-20) mg/dL Creatinine 8.07 H* (0.66-1.25) mg/dL Glucose 238 H (74-99) mg/dL POC Glucose (mg/dL) 257 H (75-99) mg/dL Magnesium 1.4 L (1.6-2.3) mg/dL Ferritin (22.0-322.0) ng/mL Procalcitonin (0.02-0.09) ng/mL 01/20/20 01/20/20 Range/Units 16:46 20:57 Hgb (13.0-17.5) gm/dL Hct (39.0-53.0) % MCV (80.0-100.0) fL MCH (25.0-35.0) pg MCHC (31.0-37.0) g/dL RDW (11.5-15.5) % Plt Count (150-450) k/uL Sodium (137-145) mmol/L Chloride (98-107) mmol/L BUN (9-20) mg/dL Creatinine (0.66-1.25) mg/dL Glucose (74-99) mg/dL POC Glucose (mg/dL) 257 H 260 H (75-99) mg/dL Magnesium (1.6-2.3) mg/dL Ferritin (22.0-322.0) ng/mL Procalcitonin (0.02-0.09) ng/mL Thrombosis Risk Factor Assmnt - Choose All That Apply Each Risk Factor Represents 2 Points: Age 61-74 years Thrombosis Risk Factor Assessment Total Risk Factor Score: 2 Thrombosis Risk Factor Assessment Level: Low Risk Assessment and Plan (1) COVID-19 Current Visit: Yes Status: Acute Code(s): U07.1 - COVID-19 SNOMED Code(s): 087264526 (2) Chronic renal failure syndrome Current Visit: Yes Status: Acute Code(s): N18.9 - CHRONIC KIDNEY DISEASE, UNSPECIFIED SNOMED Code(s): 73868390 (3) Dialysis patient Current Visit: Yes Status: Acute Code(s): Z99.2 - DEPENDENCE ON RENAL DIALYSIS SNOMED Code(s): 456647308 (4) Cardiorenal syndrome with renal failure Current Visit: No Status: Acute Code(s): I13.10 - HYP HRT & CHR KDNY DIS W/O HRT FAIL, W STG 1-4/UNSP CHR KDNY SNOMED Code(s): 731158175 (5) Diastolic CHF Current Visit: No Status: Acute Code(s): I50.30 - UNSPECIFIED DIASTOLIC (CONGESTIVE) HEART FAILURE SNOMED Code(s): 614316291 (6) End stage renal disease on dialysis Current Visit: No Status: Acute Code(s): N18.6 - END STAGE RENAL DISEASE; Z99.2 - DEPENDENCE ON RENAL DIALYSIS SNOMED Code(s): 929631411 Plan: 1. ESRD on HD. Nephrology consulted, pt s/p dialysis yesterday. As he now has 2 negative COVID tests he should be able to resume normal outpatient dialysis. Continue lasix 2. COVID19. Elevated procalcitonin. Pt asymptomatic and never had more than a sore throat. Now with 2 negative PCR tests 3. Abdominal discomfort. Gas x prn
[2020-01-21] MEDS: LEVOTHYROXINE 100 MCG TAB PO SCH (06:15)
[2020-01-21 07:55] LABS: Glucose,Whole Blood 271 mg/dL (75-99)
[2020-01-21] MEDS: CALCIUM ACETATE 667 MG TAB PO SCH ×3 (08:12→18:00)
[2020-01-21] MEDS: INSULIN ASPART (NovoLOG) 100 UNIT/ML VIAL SQ SCH ×4 (08:13→21:21)
[2020-01-21] MEDS: ASPIRIN 81 MG PO SCH (08:14)
[2020-01-21] MEDS: traMADol 50 MG TAB PO PRN (08:14)
[2020-01-21] MEDS: CYANOCOBALAMIN 500 MCG TAB PO SCH (08:14)
[2020-01-21] MEDS: METOPROLOL TARTRATE 50 MG TAB PO SCH (08:14)
[2020-01-21] MEDS: hydrALAZINE HCL 50 MG TAB PO SCH ×2 (08:14→21:21)
[2020-01-21] MEDS: PANTOPRAZOLE 40 MG TABLET PO SCH ×2 (08:14→18:00)
[2020-01-21] MEDS: FUROSEMIDE 80 MG TAB PO SCH (08:14)
[2020-01-21] MEDS: diphenhydrAMINE 25 MG CAP PO SCH (08:14)
[2020-01-21] MEDS: PYRIDOXINE 50 MG TAB PO SCH (08:14)
[2020-01-21 11:50] LABS: Glucose,Whole Blood 146 mg/dL (75-99)
[2020-01-21] MEDS: ONDANSETRON 4 MG/2 ML VIAL IVP PRN (12:32)
[2020-01-21] MEDS ORDERED: methylPREDNISolone ACETATE 40 MG/ML 1 ML VIAL INTRAARTIC STA ×2 (12:43→12:44)
[2020-01-21] MEDS ORDERED: LIDOCAINE 1% INJ 10MG/ML (20 ML MDV) ONE (12:55)
--- NOTE | 2020-01-21 13:49 | P.CNOR ---
History of Present Illness - HPI Consult date: 01/21/20 Consult reason: joint pain (Bilateral knee pain) History of present illness: This is a 64-year-old male who is admitted to [facility] with hx of ESRD on HD who presented to the hospital to confirm COVID status. Approx 2 weeks ago he had a mild sore throat and has been asymptomatic since then. He was confirmed positive for COVID last week and due to this could not have his dialysis done outpatient. Pt was admitted last week and had HD done at the hospital, COVID test was negative at that time but due to his recent positive test he was required to go to [facility] but as pt had apparently recovered he was advised to go to the ED instead to confirm his status. On initial presentation his vitals were stable, labs with procalcitonin 1.3, COVID PCR negative. The patient is currently complaining of bilateral knee pain and swelling. We're consulted for orthopedic evaluation. Past Medical History Past Medical History: Heart Failure, Diabetes Mellitus, Dialysis, Hyperlipidemia, Hypertension, Renal Disease Additional Past Medical History / Comment(s): vitiligo, 50 ounces fluid restrictions per day.ESRD with hemodailysis MWF- abdominal pain/nausea, hyperkalemia, chronic anemia, IDDM type II, neuropathy bilateral feet, bilateral eye retinopathy and leaking vessel behind R eye and recently told also now behind L eye, past R great toe diabetic ulcer which was healed thru [facility] History of Any Multi-Drug Resistant Organisms: None Reported Past Surgical History: Cholecystectomy, Heart Catheterization With Stent, Joint Replacement, Orthopedic Surgery Additional Past Surgical History / Comment(s): PCI with stent in 2008, L arm graft for dialysis, R eye injections/laser surgery, R knee plate with screws, R total hip (2011), 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 Past Anesthesia/Blood Transfusion Reactions: No Reported Reaction Additional Past Anesthesia/Blood Transfusion Reaction / Comm: Pt states he has woken during surgeries in the past. Date of Last Stent Placement:: 2008 Past Psychological History: No Psychological Hx Reported Additional Psychological History / Comment(s): . Lives with his and 2 dogs. Pt uses cane to ambulate. He drives. Smoking Status: Former smoker Past Alcohol Use History: None Reported Additional Past Alcohol Use History / Comment(s): Pt started smoking as a teen and quit in 1989 Past Drug Use History: None Reported - Past Family History Mother Family Medical History: Congestive Heart Failure (CHF) Additional Family Medical History / Comment(s): Mother lived to be 89 yrs old. Father Family Medical History: Congestive Heart Failure (CHF) Additional Family Medical History / Comment(s): Father lived to be 93 yrs old. Brother(s) Family Medical History: Congestive Heart Failure (CHF) Additional Family Medical History / Comment(s): Brother at the age of 67yrs. Medications and Allergies Home Medications Medication Instructions Recorded Confirmed Type Aspirin [Adult Low Dose Aspirin EC] 81 mg PO DAILY 10/23/16 01/19/20 History Atorvastatin [Lipitor] 10 mg PO HS 10/23/16 01/19/20 History Ergocalciferol (Vitamin D2) 50,000 unit PO Q14D 10/23/16 01/19/20 History [Vitamin D2] Pyridoxine [Vitamin B-6] 100 mg PO DAILY 08/29/17 01/19/20 History diphenhydrAMINE [Benadryl] 25 mg PO DAILY 08/29/17 01/19/20 History Folic Acid 0.8 mg PO DAILY 12/07/17 01/19/20 History Calcium Acetate [PhosLo] 1,334 mg PO AC-TID 09/12/18 01/19/20 History Cyanocobalamin [Vitamin B-12] 500 mcg PO DAILY 09/12/18 01/19/20 History Furosemide [Lasix] 80 mg PO DAILY 09/12/18 01/19/20 History Levothyroxine Sodium [Synthroid] 300 mcg PO DAILY 10/25/18 01/19/20 History Omeprazole [PriLOSEC] 20 mg PO AC-BID 02/27/19 01/19/20 History traMADol HCL [Ultram] 50 mg PO BID 02/27/19 01/19/20 History Insulin NPH Hum/Reg Insulin Hm 12 units SQ AC-SUPPER 01/15/20 01/19/20 History [Relion Novolin 70-30 Flexpen] Insulin NPH Hum/Reg Insulin Hm 18 units SQ AC-BRKFST 01/15/20 01/19/20 History [Relion Novolin 70-30 Flexpen] Metoprolol Tartrate [Lopressor] 50 mg PO DAILY 01/15/20 01/19/20 History hydrALAZINE HCL [Apresoline] 50 mg PO BID 01/15/20 01/19/20 History Acetaminophen Tab [Tylenol] 650 mg PO Q6HR PRN tab 01/17/20 01/19/20 Rx Pantoprazole [Protonix] 40 mg PO AC-BID #30 tablet. 01/17/20 01/19/20 Rx Allergies Allergy/AdvReac Type Severity Reaction Status Date / Time No Known Allergies Allergy Verified 01/19/20 17:23 Physical Examination This is a pleasant 64-year-old male in no acute distress. He is alert and oriented 3. Exam of the lower extremities reveals no erythema or ecchymosis to the knees. He has a 2+ effusion to the right knee and a 1+ effusion to the left knee. He hasn't slight limitation range of motion secondary to pain. He has full foot and ankle motion bilaterally. Neurovascular status to the lower extremities is intact. Results - Labs Labs: Abnormal Lab Results - Last 24 Hours (Table) 01/20/20 01/20/20 01/21/20 Range/Units 16:46 20:57 07:27 POC Glucose (mg/dL) 257 H 260 H 271 H (75-99) mg/dL 01/21/20 Range/Units 11:48 POC Glucose (mg/dL) 146 H (75-99) mg/dL H & H 01/19/20 01/20/20 Range/Units 15:39 11:26 Hgb 10.0 L 9.8 L (13.0-17.5) gm/dL Hct 32.0 L 32.0 L (39.0-53.0) % Coagulation 01/19/20 Range/Units 15:39 INR 1.1 (<1.2) Result Diagrams: 01/20/20 11:26 01/20/20 11:26 Assessment and Plan (1) Synovitis of left knee Current Visit: Yes Status: Acute Code(s): M65.9 - SYNOVITIS AND TENOSYNOVITIS, UNSPECIFIED SNOMED Code(s): 243177208 (2) Synovitis of right knee Current Visit: Yes Status: Acute Code(s): M65.9 - SYNOVITIS AND TENOSYNOVITIS, UNSPECIFIED SNOMED Code(s): 104606184 (3) Degenerative arthritis of knee, bilateral Current Visit: Yes Status: Acute Code(s): M17.0 - BILATERAL PRIMARY OSTEOARTHRITIS OF KNEE SNOMED Code(s): 362471520920871 Plan: The clinical findings are discussed with the patient. I have ordered x-rays of bilateral knees. I have aspirated both knees using sterile technique. I obtained approximately 100 mL of slightly cloudy yellow joint fluid from the right knee. I obtained approximately 120 mL of slightly cloudy yellow joint fluid from the left knee. Depo-Medrol is injected into each knee. The patient tolerated the aspiration well. I will send aspirate to the lab for cell count and crystal identification. . He may continue to work with physical therapy. He is to follow-up in our office in 7-10 days.
--- NOTE | 2020-01-21 16:42 | PN ---
PROGRESS NOTE Patient is seen for followup for end-stage renal disease. He is currently seen on dialysis, tolerating his treatment well. We are going for about 3 L of ultrafiltration. No significant complaints today except for pain in the right knee. On examination today, blood pressure was 137/69, heart rate 66 per minute. He is afebrile. Examination of lower extremities shows no evidence of edema. Abdomen is soft, nontender. Labs show potassium 4.7 from yesterday. ASSESSMENT: 1. End-stage renal disease, on hemodialysis on a Sunday, Sunday, Sunday schedule. 2. Mild hyperkalemia, improved post dialysis. 3. Pain in the right knee, most likely osteoarthritis. 4. Low-grade fever, currently resolved. 5. Positive COVID-19 with low-grade fever and sore throat about 5-7 days ago, with repeat test negative x2. 6. Chronic kidney disease mineral bone disorder, maintained on PhosLo. PLAN: Patient can be discharged from nephrology standpoint. Will follow up as outpatient for dialysis on Sunday. He can attend the [facility] for his outpatient treatments. MMODL / IJN: [id number] /
[2020-01-21 16:56] LABS: Glucose,Whole Blood 280 mg/dL (75-99)
[2020-01-21] MEDS: methylPREDNISolone ACETATE 40 MG/ML 1 ML VIAL INTRAARTIC SCH (17:41)
--- NOTE | 2020-01-21 17:59 | XR ---
EXAMINATION TYPE: XR knee limited bilateral DATE OF EXAM: 01/21/2020 COMPARISON: Right knee 10/25/2018 HISTORY: Pain TECHNIQUE: 2 views each knee FINDINGS: There is severe narrowing of the left knee joint spaces with lateral tibial subluxation. Th ere is a plate with screws fixing an old supracondylar fracture of the right femur. There is moderate ly severe narrowing of the right knee joint spaces. I see no acute fracture nor dislocation. IMPRESSION: Severe bilateral osteoarthritis. Posterior arthritis is more severe in the left knee. Rig ht knee not changed compared to old exam.
[2020-01-21 18:15] LABS: Appearance,BF Hazy; Color,BF Yellow; Nucleated Cells, Body Fluid 5100 /uL; Nucleated Cells, Body Fluid 6200 /uL; RBC, Body Fluid 700 /uL; RBC, Body Fluid 850 /uL
[2020-01-21 18:31] LABS: Mononuclear WBC,Body Fluid 2 %; Polynuclear WBC,Body Fluid 98 %; Total Cells Counted,Body Fluid 100
[2020-01-21 18:33] LABS: Mononuclear WBC,Body Fluid 13 %; Polynuclear WBC,Body Fluid 87 %; Total Cells Counted,Body Fluid 100
[2020-01-21] MEDS ORDERED: LEVOFLOXACIN 500MG-D5W PMX 500 MG in DEXTROSE/WATER 1 100ML.BAG IVPB SCH (20:00)
[2020-01-21 21:14] LABS: Glucose,Whole Blood 346 mg/dL (75-99)
[2020-01-21] MEDS: ATORVASTATIN 10 MG TAB PO SCH (21:21)
[2020-01-21] MEDS: SENNOSIDES 8.6 MG TAB PO SCH (21:21)
[2020-01-21 23:34] LABS: Glucose,Whole Blood 332 mg/dL (75-99)
[2020-01-22] MEDS: LEVOTHYROXINE 100 MCG TAB PO SCH (05:50)
[2020-01-22 07:32] LABS: Glucose,Whole Blood 415 mg/dL (75-99)
[2020-01-22] MEDS: INSULIN ASPART (NovoLOG) 100 UNIT/ML VIAL SQ SCH (08:02)
[2020-01-22] MEDS: hydrALAZINE HCL 50 MG TAB PO SCH (08:02)
[2020-01-22] MEDS: diphenhydrAMINE 25 MG CAP PO SCH (08:02)
[2020-01-22] MEDS: SENNOSIDES 8.6 MG TAB PO SCH (08:02)
[2020-01-22] MEDS: PYRIDOXINE 50 MG TAB PO SCH (08:03)
[2020-01-22] MEDS: METOPROLOL TARTRATE 50 MG TAB PO SCH (08:03)
[2020-01-22] MEDS: CALCIUM ACETATE 667 MG TAB PO SCH (08:03)
[2020-01-22] MEDS: PANTOPRAZOLE 40 MG TABLET PO SCH (08:03)
[2020-01-22] MEDS: FUROSEMIDE 80 MG TAB PO SCH (08:03)
[2020-01-22] MEDS: ASPIRIN 81 MG PO SCH (08:03)
[2020-01-22] MEDS: CYANOCOBALAMIN 500 MCG TAB PO SCH (08:03)
--- NOTE | 2020-01-22 08:44 | P.PN ---
Subjective Progress Note Date: 01/22/20 Principal diagnosis: bilateral knee pain and knee effusions. this is a 64-year-old male who is seen yesterday with bilateral knee pain and effusions. Both knees were aspirated obtaining a significant amount of fluid from each knee. Fluid was sent for cell count anchors identification. The fluid is positive for urate crystals in both knees. Patient states that his pain is significantly better today. He has no new complaints or concerns. Objective - Vital Signs Vital signs: Vital Signs Temp 98 F 01/22/20 07:00 Pulse 83 01/22/20 07:00 Resp 16 01/22/20 07:00 BP 156/76 01/22/20 07:00 Pulse Ox 95 01/22/20 07:00 Intake & Output 01/21/20 01/22/20 01/22/20 18:59 06:59 18:59 Output Total 3000 Balance -3000 Output: Hemodialysis 3000 Other: # Voids 0 0 # Bowel Movements 0 - Exam this is a pleasant 64-year-old male in no acute distress. He is alert and oriented 3. Exam of the bilateral knees reveal that his swelling is improved. There is no erythema or ecchymosis. He has improved range of motion of the knees without difficulty or pain. Neurovascular status to the lower extremities is intact. - Labs CBC & Chem 7: 01/20/20 11:26 01/20/20 11:26 Labs: Abnormal Lab Results - Last 24 Hours (Table) 01/21/20 01/21/20 01/21/20 Range/Units 11:48 16:54 21:11 POC Glucose (mg/dL) 146 H 280 H 346 H (75-99) mg/dL Synovial Crystals (None Seen) 01/21/20 01/21/20 01/21/20 Range/Units 23:29 Unknown Unknown POC Glucose (mg/dL) 332 H (75-99) mg/dL Synovial Crystals Seen H Seen H (None Seen) 01/22/20 Range/Units 07:28 POC Glucose (mg/dL) 415 H (75-99) mg/dL Synovial Crystals (None Seen) Assessment and Plan (1) Synovitis of left knee Current Visit: Yes Status: Acute Code(s): M65.9 - SYNOVITIS AND TENOSYNOVITIS, UNSPECIFIED SNOMED Code(s): 880269519 (2) Synovitis of right knee Current Visit: Yes Status: Acute Code(s): M65.9 - SYNOVITIS AND TENOSYNOVITIS, UNSPECIFIED SNOMED Code(s): 960818552 (3) Degenerative arthritis of knee, bilateral Current Visit: Yes Status: Acute Code(s): M17.0 - BILATERAL PRIMARY OSTEOARTHRITIS OF KNEE SNOMED Code(s): 911032382735527 Plan: The clinical and x-ray findings are discussed with the patient. it is discussed with the patient that he is to follow-up with his primary care physician regarding gout prophylaxis. He may be a candidate for a read of medications. He is to follow-up in our office in 7-10 days.
[2020-01-22] MEDS ORDERED: COLCHICINE 0.6 MG EACH PO SCH (09:45)
--- NOTE | 2020-01-22 09:58 | P.PN ---
Progress Note - Text Progress Note Date: 01/22/20 Xrays of bilateral knees are reviewed today which show severe, bone on bone arthritis of both knees. No acute fractures noted. there is hardware fixation noted to the distal femur of the right leg.
--- NOTE | 2020-01-22 13:37 | P.DS ---
Providers Date of admission: 01/19/20 16:58 Expected date of discharge: 01/21/20 Attending physician: Arcadio Chao MD Consults: 01/19/20 17:03 Consult Physician Routine Consulting Provider: Jennifer Langford Consult Reason/Comments: known Do you want consulting provider notified?: Yes 01/21/20 12:27 Consult Physician Routine Consulting Provider: Tonny Morgan Consult Reason/Comments: Bilateral Knee Pain rt Knee effusion Do you want consulting provider notified?: Already Contacted Primary care physician: [facility] Course: Final Diagnoses: (1) End stage renal disease on dialysis Current Visit: No Status: Acute Code(s): N18.6 - END STAGE RENAL DISEASE; Z99.2 - DEPENDENCE ON RENAL DIALYSIS SNOMED Code(s): 647652371 (2) COVID-19 Current Visit: Yes Status: Acute Code(s): U07.1 - COVID-19 SNOMED Code(s): 112358261 (3) Chronic renal failure syndrome Current Visit: Yes Status: Acute Code(s): N18.9 - CHRONIC KIDNEY DISEASE, UNSPECIFIED SNOMED Code(s): 98128411 (4) Cardiorenal syndrome with renal failure Current Visit: No Status: Acute Code(s): I13.10 - HYP HRT & CHR KDNY DIS W/O HRT FAIL, W STG 1-4/UNSP CHR KDNY SNOMED Code(s): 315151580 (5) Diastolic CHF Current Visit: No Status: Acute Code(s): I50.30 - UNSPECIFIED DIASTOLIC (CONGESTIVE) HEART FAILURE SNOMED Code(s): 461489024 (6) possible Gout Quoc Tompkins is a 64 yo M with hx of ESRD on HD who presented to the hospital to confirm COVID status. Approx 2 weeks ago he had a mild sore throat and has been asymptomatic since then. He was confirmed positive for COVID last week and due to this could not have his dialysis done outpatient. Pt was admitted last week and had HD done at the hospital, COVID test was negative at that time but due to his recent positive test he was required to go to [facility] but as pt had apparently recovered he was advised to go to the ED instead to confirm his status. On initial presentation his vitals were stable, labs with procalcitonin 1.3, COVID PCR negative. Evaluated by nephrology, completed hemodialysis.As he now has 2 negative COVID tests he should be able to resume normal outpatient dialysis. Pt asymptomatic and never had more than a sore throat. Now with 2 negative PCR tests. Case management as confirmed OP hemodialysis center appointment. Complains of bilateral knee pain, orthopedic surgery consulted for evaluation. Patient will be discharged home today in a stable condition with guarded prognosis pending her orthopedics evaluation/recommendations. The impression and plan of care has been dictated as directed. : I performed a history and examination of this patient, discussed the same with the dictator. I agree with the dictator's note ,documented as a scribe. Any additional findings or plans will be noted. Patient Condition at Discharge: Stable Plan - Discharge Summary New Discharge Prescriptions: New Colchicine 0.6 mg PO DAILY #5 capsule Continue Atorvastatin [Lipitor] 10 mg PO HS Ergocalciferol (Vitamin D2) [Vitamin D2] 50,000 unit PO Q14D Aspirin [Adult Low Dose Aspirin EC] 81 mg PO DAILY Pyridoxine [Vitamin B-6] 100 mg PO DAILY diphenhydrAMINE [Benadryl] 25 mg PO DAILY Folic Acid 0.8 mg PO DAILY Cyanocobalamin [Vitamin B-12] 500 mcg PO DAILY Furosemide [Lasix] 80 mg PO DAILY Calcium Acetate [PhosLo] 1,334 mg PO AC-TID Levothyroxine Sodium [Synthroid] 300 mcg PO DAILY Omeprazole [PriLOSEC] 20 mg PO AC-BID traMADol HCL [Ultram] 50 mg PO BID hydrALAZINE HCL [Apresoline] 50 mg PO BID Insulin NPH Hum/Reg Insulin Hm [Relion Novolin 70-30 Flexpen] 18 units SQ AC- BRKFST Insulin NPH Hum/Reg Insulin Hm [Relion Novolin 70-30 Flexpen] 12 units SQ AC- SUPPER Metoprolol Tartrate [Lopressor] 50 mg PO DAILY Pantoprazole [Protonix] 40 mg PO AC-BID #30 tablet. Acetaminophen Tab [Tylenol] 650 mg PO Q6HR PRN tab PRN Reason: Mild Pain Or Fever > 100.5 Discharge Medication List Aspirin [Adult Low Dose Aspirin EC] 81 mg PO DAILY 10/23/16 [History] Atorvastatin [Lipitor] 10 mg PO HS 10/23/16 [History] Ergocalciferol (Vitamin D2) [Vitamin D2] 50,000 unit PO Q14D 10/23/16 [History] Pyridoxine [Vitamin B-6] 100 mg PO DAILY 08/29/17 [History] diphenhydrAMINE [Benadryl] 25 mg PO DAILY 08/29/17 [History] Folic Acid 0.8 mg PO DAILY 12/07/17 [History] Calcium Acetate [PhosLo] 1,334 mg PO AC-TID 09/12/18 [History] Cyanocobalamin [Vitamin B-12] 500 mcg PO DAILY 09/12/18 [History] Furosemide [Lasix] 80 mg PO DAILY 09/12/18 [History] Levothyroxine Sodium [Synthroid] 300 mcg PO DAILY 10/25/18 [History] Omeprazole [PriLOSEC] 20 mg PO AC-BID 02/27/19 [History] traMADol HCL [Ultram] 50 mg PO BID 02/27/19 [History] Insulin NPH Hum/Reg Insulin Hm [Relion Novolin 70-30 Flexpen] 12 units SQ AC- SUPPER 01/15/20 [History] Insulin NPH Hum/Reg Insulin Hm [Relion Novolin 70-30 Flexpen] 18 units SQ AC- BRKFST 01/15/20 [History] Metoprolol Tartrate [Lopressor] 50 mg PO DAILY 01/15/20 [History] hydrALAZINE HCL [Apresoline] 50 mg PO BID 01/15/20 [History] Acetaminophen Tab [Tylenol] 650 mg PO Q6HR PRN tab 01/17/20 [Rx] Pantoprazole [Protonix] 40 mg PO AC-BID #30 tablet. 01/17/20 [Rx] Colchicine 0.6 mg PO DAILY #5 capsule 01/22/20 [Rx] Follow up Appointment(s)/Referral(s): Chloe Ramos PAC [PHYSICIAN MILKING MACHINE MECHANIC] - 01/29/20 1:15 pm Jennifer Langford MD [STAFF PHYSICIAN] - 1 Week (as scheduled) Jazmin Castaneda MD [Primary Care Provider] - 3 Days Activity/Diet/Wound Care/Special Instructions: Hemodialysis clinic confirmed as per case management OSMAN. Hemodialysis as per nephrology Discharge Disposition: HOME SELF-CARE
--- NOTE | 2020-01-22 15:30 | PN ---
PROGRESS NOTE Patient is seen for followup for end-stage renal disease. He is currently comfortable. Patient had aspiration from both knees which showed urate crystals. He states he is feeling significantly better. There is no significant knee pain now and he is able to walk. He has been started on colchicine. Patient states that he used to be on allopurinol previously. PHYSICAL EXAMINATION: On examination today, blood pressure was 167/84, heart rate 85 per minute. He is afebrile. Examination of the lower extremities shows no evidence of edema. Patient has vitiligo, upper and lower extremities. His knees are not swollen. They are not tender. ABDOMEN: Soft, obese, nontender. LABS: Labs are not available from today. ASSESSMENT: 1. End-stage renal disease, on hemodialysis on a Sunday, Sunday, Sunday schedule. 2. Previous history of fever and positive chaudhry testing with repeat testing negative x2 for coronavirus. 3. Bilateral knee effusion, status post arthrocentesis, and currently maintained on colchicine for gout with improvement in symptoms. PLAN: Patient is stable for discharge from nephrology standpoint. He will follow up as outpatient for hemodialysis at the [facility] tomorrow. MMODL / IJN: [id number] /
[2020-01-23 08:10] VITALS: BP 156/76; PULSE 83; RESP 16; TEMP 98
== END 2020-01-22 12:48 | disposition home or self-care (01) ==
LOC: EC 14:55 → 4SSUR 16:58
PROVIDERS: ADMIT Family Medicine; ATTEND Family Medicine
DX: I13.2 Hypertensive heart and chronic kidney disease with heart failure and with stage 5 chronic kidney disease, or end stage renal disease (principal); N18.6 End stage renal disease; Z03.818 Encounter for observation for suspected exposure to other biological agents ruled out; D63.8 Anemia in other chronic diseases classified elsewhere; E03.9 Hypothyroidism, unspecified; E11.22 Type 2 diabetes mellitus with diabetic chronic kidney disease; E78.5 Hyperlipidemia, unspecified; E87.1 Hypo-osmolality and hyponatremia; E87.5 Hyperkalemia; I25.10 Atherosclerotic heart disease of native coronary artery without angina pectoris; I50.32 Chronic diastolic (congestive) heart failure; M10.9 Gout, unspecified; M17.0 Bilateral primary osteoarthritis of knee; M65.9 Synovitis and tenosynovitis, unspecified; N25.0 Renal osteodystrophy; Z79.4 Long term (current) use of insulin; Z79.82 Long term (current) use of aspirin; Z79.890 Hormone replacement therapy; Z79.899 Other long term (current) drug therapy; Z82.49 Family history of ischemic heart disease and other diseases of the circulatory system; Z87.891 Personal history of nicotine dependence; Z95.5 Presence of coronary angioplasty implant and graft; Z96.641 Presence of right artificial hip joint; Z99.2 Dependence on renal dialysis
CPT/HCPCS: 96376 ×2; 96365; 96366; 96367; 96375; 99285; 36415; 93005; 97116; 97162; 97535; 97166; 85379; 89060; 80053; 80048; 82728; 89050; 83605; 83615; 83735 ×2; 85025 ×2; 85610; 85730; 86140; 84145; 73560; 71045 ×2; 93971; G0257 ×2; G0378 ×4; U0003; J2543; J1030; J2405 ×2; J2001; J3475; 90935

== ENCOUNTER 2020-02-22 16:18 | Inpatient (IN) | payer MEDICARE, BC ==
--- NOTE | 2020-02-22 16:28 | ED ---
Chest Pain HPI - General Chief Complaint: Chest Pain Stated Complaint: chest pain Time Seen by Provider: 02/22/20 16:23 Source: patient, RN notes reviewed, old records reviewed Mode of arrival: wheelchair Limitations: no limitations - History of Present Illness Initial Comments: This is a 64-year-old male DF for evaluation patient has significant history of heart disease on dialysis. Patient has not been feeling well for a few days now multiple recent hospital admissions was tested for Kovic is had one positive to negative. Patient has no recent sick contacts or travel history. Mild nausea no vomiting denying fevers is complaining of increasing shortness of breath and shortness breath he takes a deep breath which also causes some chest pain MD Complaint: chest pain -: days(s) Onset: during rest, during exertion Pain Location: substernal Pain Radiation: none Severity: moderate Severity scale (1-10): 5 Quality: sharp Consistency: constant Improves With: nothing Worsens With: inspiration Anginal Symptoms: dyspnea Other Symptoms: palpitations Treatments Prior to Arrival: none - Related Data Home Medications Medication Instructions Recorded Confirmed Aspirin [Adult Low Dose Aspirin EC] 81 mg PO DAILY 10/23/16 02/22/20 Atorvastatin [Lipitor] 10 mg PO HS 10/23/16 02/22/20 Ergocalciferol (Vitamin D2) 50,000 unit PO Q14D 10/23/16 02/22/20 [Vitamin D2] Pyridoxine [Vitamin B-6] 100 mg PO DAILY 08/29/17 02/22/20 diphenhydrAMINE [Benadryl] 25 mg PO DAILY 08/29/17 02/22/20 Folic Acid 0.8 mg PO DAILY 12/07/17 02/22/20 Cyanocobalamin [Vitamin B-12] 500 mcg PO DAILY 09/12/18 02/22/20 Furosemide [Lasix] 80 mg PO DAILY 09/12/18 02/22/20 Levothyroxine Sodium [Synthroid] 300 mcg PO DAILY 10/25/18 02/22/20 Omeprazole [PriLOSEC] 20 mg PO AC-BID 02/27/19 02/22/20 traMADol HCL [Ultram] 50 mg PO BID 02/27/19 02/22/20 Insulin NPH Hum/Reg Insulin Hm 14 units SQ AC-SUPPER 01/15/20 02/22/20 [Relion Novolin 70-30 Flexpen] Insulin NPH Hum/Reg Insulin Hm 22 units SQ AC-BRKFST 01/15/20 02/22/20 [Relion Novolin 70-30 Flexpen] Metoprolol Tartrate [Lopressor] 50 mg PO DAILY 01/15/20 02/22/20 hydrALAZINE HCL [Apresoline] 50 mg PO DAILY 01/15/20 02/22/20 Calcitron (Unknown Strength) 3 tab PO TID-W/MEALS 02/22/20 02/22/20 Famotidine [Pepcid] 40 mg PO DAILY 02/22/20 02/22/20 Sodium Polystyrene Sulfonate 15 gm PO MOWEFR 02/22/20 02/22/20 Previous Rx's Medication Instructions Recorded Acetaminophen Tab [Tylenol] 650 mg PO Q6HR PRN tab 01/17/20 Allergies Allergy/AdvReac Type Severity Reaction Status Date / Time No Known Allergies Allergy Verified 02/22/20 17:31 Review of Systems ROS Statement: Those systems with pertinent positive or pertinent negative responses have been documented in the HPI. ROS Other: All systems not noted in ROS Statement are negative. EKG Findings - EKG Comments: EKG Findings:: EKG is sinus rhythm 84. 164 QRS 118 QTc 482 Past Medical History Past Medical History: Heart Failure, Diabetes Mellitus, Dialysis, Hyperlipidemia, Hypertension, Renal Disease Additional Past Medical History / Comment(s): vitiligo, 50 ounces fluid restrictions per day.ESRD with hemodailysis MWF- abdominal pain/nausea, hyperkalemia, chronic anemia, IDDM type II, neuropathy bilateral feet, bilateral eye retinopathy and leaking vessel behind R eye and recently told also now behind L eye, past R great toe diabetic ulcer which was healed thru 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 Past Anesthesia/Blood Transfusion Reactions: No Reported Reaction Additional Past Anesthesia/Blood Transfusion Reaction / Comment(s): Pt states he has woken during surgeries in the past. Date of Last Stent Placement:: 2008 Past Psychological History: No Psychological Hx Reported Smoking Status: Never smoker Past Alcohol Use History: None Reported Past Drug Use History: None Reported - Past Family History Mother Family Medical History: Congestive Heart Failure (CHF) Additional Family Medical History / Comment(s): Mother lived to be 89 yrs old. Father Family Medical History: Congestive Heart Failure (CHF) Additional Family Medical History / Comment(s): Father lived to be 93 yrs old. Brother(s) Family Medical History: Congestive Heart Failure (CHF) Additional Family Medical History / Comment(s): Brother at the age of 67yrs. General Exam Limitations: no limitations General appearance: alert, in no apparent distress Head exam: Present: atraumatic, normocephalic, normal inspection Eye exam: Present: normal appearance, PERRL, EOMI. Absent: scleral icterus, conjunctival injection, periorbital swelling ENT exam: Present: normal exam, mucous membranes moist Neck exam: Present: normal inspection. Absent: tenderness, meningismus, lymphadenopathy Respiratory exam: Present: normal lung sounds bilaterally. Absent: respiratory distress, wheezes, rales, rhonchi, stridor Cardiovascular Exam: Present: regular rate, normal rhythm, normal heart sounds. Absent: systolic murmur, diastolic murmur, rubs, gallop, clicks GI/Abdominal exam: Present: soft, normal bowel sounds. Absent: distended, tenderness, guarding, rebound, rigid Extremities exam: Present: normal inspection, full ROM, normal capillary refill. Absent: tenderness, pedal edema, joint swelling, calf tenderness Back exam: Present: normal inspection Neurological exam: Present: alert, oriented X3, CN II-XII intact Psychiatric exam: Present: normal affect, normal mood Skin exam: Present: warm, dry, intact, normal color. Absent: rash Course Vital Signs 02/22/20 16:21 Temperature 98.7 F Pulse Rate 88 Respiratory 16 Rate Blood Pressure 150/83 O2 Sat by Pulse 95 Oximetry - Reevaluation(s) Reevaluation #1: 02/22/20 18:12 Medical record is reviewed Reevaluation #2: 02/22/20 18:12 Patient in no acute distress was still shortness of breath and chest pain - Consultations Consultation #1: spoke w [facility] and ok for admission Chest Pain MDM - MDM 64 male DF for evaluation patient Dese for evaluation regards to shortness of breath and chest pain. We will obtain VQ scan morning low doubt probably for PE patient does have CHF and renal failure on dialysis Disposition Clinical Impression: Atypical chest pain, Chest pain, Chronic renal failure syndrome, Pulmonary edema Disposition: ADMITTED IP TO THIS HOSP Condition: Fair Is patient prescribed a controlled substance at d/c from ED?: No Referrals: Jazmin Castaneda MD [Primary Care Provider] - 1-2 days
[2020-02-22 16:54] LABS: Anisocytosis Slight; Basophils # (A) 0.1 k/uL (0-0.2); Basophils % (A) 1 %; Eosinophils # (A) 0.6 k/uL (0-0.7); Eosinophils % (A) 9 %; HCT 28.4 % (39.0-53.0); HGB 8.8 gm/dL (13.0-17.5); Hypochromasia Marked; Lymphocytes # (A) 1.5 k/uL (1.0-4.8); Lymphocytes % (A) 23 %; MCH 20.1 pg (25.0-35.0); MCHC 30.8 g/dL (31.0-37.0); MCV 65.2 fL (80.0-100.0); Mean Platelet Volume 7.4; Microcytosis Marked; Monocytes # (A) 0.4 k/uL (0-1.0); Monocytes % (A) 5 %; Neutrophils # (A) 3.9 k/uL (1.3-7.7); Neutrophils % (A) 60 %; Platelet Count 132 k/uL (150-450); Poikilocytosis Slight; RBC 4.36 m/uL (4.30-5.90); RDW 18.3 % (11.5-15.5); WBC 6.6 k/uL (3.8-10.6)
[2020-02-22 17:02] LABS: Albumin 3.8 g/dL (3.5-5.0); Calcium 8.4 mg/dL (8.4-10.2); Magnesium 1.5 mg/dL (1.6-2.3); Potassium 4.6 mmol/L (3.5-5.1); Total Bilirubin 0.8 mg/dL (0.2-1.3); Total Protein 5.8 g/dL (6.3-8.2)
[2020-02-22 17:08] LABS: INR 1.1 (<1.2); Partial Thromboplastin Time 25.3 sec (22.0-30.0); Prothrombin Time 11.4 sec (9.0-12.0)
[2020-02-22 17:21] LABS: D-Dimer 1.63 mg/L FEU (<0.60)
--- NOTE | 2020-02-22 17:24 | XR ---
EXAMINATION TYPE: XR chest 2V DATE OF EXAM: 02/22/2020 COMPARISON: 01/20/2020 HISTORY: Chest pain TECHNIQUE: 2 views FINDINGS: There is diffuse pulmonary interstitial edema. There is blunting of the costophrenic angles . Heart size is normal. Thoracic aorta is atheromatous. IMPRESSION: Pulmonary interstitial edema is new compared to recent exam and is consistent with conges tive heart failure. There are new small pleural effusions compared to old exam. Interstitial pneumoni a also possible.
[2020-02-22] MEDS: FUROSEMIDE 10 MG/ML 10 ML VIAL IV SCH (20:12)
[2020-02-22] MEDS: LORazepam 2 MG/ML INJ IV PRN (20:20)
[2020-02-22 20:26] LABS: Glucose,Whole Blood 307 mg/dL (75-99)
[2020-02-23] MEDS: LORazepam 2 MG/ML INJ IV PRN ×3 (00:26→19:54)
[2020-02-23] MEDS: FUROSEMIDE 10 MG/ML 10 ML VIAL IV SCH ×2 (05:21→18:39)
[2020-02-23] MEDS ORDERED: METOPROLOL TARTRATE 50 MG TAB PO SCH (09:00)
[2020-02-23] MEDS ORDERED: hydrALAZINE HCL 25 MG TAB PO SCH (09:00)
[2020-02-23] MEDS: traMADol 50 MG TAB PO SCH ×2 (09:03→21:27)
[2020-02-23] MEDS: CYANOCOBALAMIN 500 MCG TAB PO SCH (09:04)
[2020-02-23] MEDS: FOLIC ACID 1 MG TAB PO SCH (09:04)
[2020-02-23] MEDS: ASPIRIN 81 MG PO SCH (09:04)
[2020-02-23] MEDS: diphenhydrAMINE 25 MG CAP PO SCH (09:04)
[2020-02-23] MEDS: LEVOTHYROXINE 100 MCG TAB PO SCH (09:04)
[2020-02-23] MEDS: INSULIN DETEMIR (LEVEMIR) 100 UNIT/ML SYR SQ SCH (09:42)
[2020-02-23] MEDS ORDERED: ALBUTEROL NEBULIZED 2.5 MG/3 ML INHALATION STA (10:07)
--- NOTE | 2020-02-23 11:22 | P.NPCON ---
History of Present Illness - Reason for Consult end stage renal disease - History of Present Illness reason for consultation: End-stage renal disease History of present illness: Patient is a 64-year-old male seen in renal consultation for end-stage renal disease. He is maintained on hemodialysis on Sunday schedule. Patient denies missing hemodialysis treatments outpatient. States his last treatment was on Sunday. Patient states he ate indonesian fries over the weekend and subsequently became more short of breath. chest x-ray was suggestive of fluid overload with pulmonary interstitial edema. he denies fever or chills. No cough. No vomiting or diarrhea. blood pressure stable. No dizziness or syncopal episodes. currently on 3 L nasal cannula. No other complaints. Vital signs are stable. General: The patient appeared well nourished and normally developed. HEENT: Head exam is unremarkable. Neck is without jugular venous distension. LUNGS: Breath sounds decreased. HEART: Rate and Rhythm are regular. ABDOMEN: soft, nontender. EXTREMITITES: No edema. Past Medical History Past Medical History: Heart Failure, Diabetes Mellitus, Dialysis, Hyperlipidemia, Hypertension, Renal Disease Additional Past Medical History / Comment(s): vitiligo, 50 ounces fluid restrictions per day.ESRD with hemodailysis MWF- abdominal pain/nausea, hyperkalemia, chronic anemia, IDDM type II, neuropathy bilateral feet, bilateral eye retinopathy and leaking vessel behind R eye and recently told also now behind L eye, past R great toe diabetic ulcer which was healed thru [facility] History of Any Multi-Drug Resistant Organisms: None Reported Past Surgical History: Cholecystectomy, Heart Catheterization With Stent, Joint Replacement, Orthopedic Surgery Additional Past Surgical History / Comment(s): PCI with stent in 2008, L arm graft for dialysis, R eye injections/laser surgery, R knee plate with screws, R total hip (2011), 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 Past Anesthesia/Blood Transfusion Reactions: No Reported Reaction Additional Past Anesthesia/Blood Transfusion Reaction / Comment(s): Pt states he has woken during surgeries in the past. Date of Last Stent Placement:: 2008 Past Psychological History: No Psychological Hx Reported Additional Psychological History / Comment(s): . Lives with his and 2 dogs. Pt uses cane to ambulate. He drives. Smoking Status: Former smoker Past Alcohol Use History: None Reported Additional Past Alcohol Use History / Comment(s): Pt started smoking as a teen and quit in 1989 Past Drug Use History: None Reported - Past Family History Mother Family Medical History: Congestive Heart Failure (CHF) Additional Family Medical History / Comment(s): Mother lived to be 89 yrs old. Father Family Medical History: Congestive Heart Failure (CHF) Additional Family Medical History / Comment(s): Father lived to be 93 yrs old. Brother(s) Family Medical History: Congestive Heart Failure (CHF) Additional Family Medical History / Comment(s): Brother at the age of 67yrs. Medications and Allergies Home Medications Medication Instructions Recorded Confirmed Type Aspirin [Adult Low Dose Aspirin EC] 81 mg PO DAILY 10/23/16 02/22/20 History Atorvastatin [Lipitor] 10 mg PO HS 10/23/16 02/22/20 History Ergocalciferol (Vitamin D2) 50,000 unit PO Q14D 10/23/16 02/22/20 History [Vitamin D2] Pyridoxine [Vitamin B-6] 100 mg PO DAILY 08/29/17 02/22/20 History diphenhydrAMINE [Benadryl] 25 mg PO DAILY 08/29/17 02/22/20 History Folic Acid 0.8 mg PO DAILY 12/07/17 02/22/20 History Cyanocobalamin [Vitamin B-12] 500 mcg PO DAILY 09/12/18 02/22/20 History Furosemide [Lasix] 80 mg PO DAILY 09/12/18 02/22/20 History Levothyroxine Sodium [Synthroid] 300 mcg PO DAILY 10/25/18 02/22/20 History Omeprazole [PriLOSEC] 20 mg PO AC-BID 02/27/19 02/22/20 History traMADol HCL [Ultram] 50 mg PO BID 02/27/19 02/22/20 History Insulin NPH Hum/Reg Insulin Hm 14 units SQ AC-SUPPER 01/15/20 02/22/20 History [Relion Novolin 70-30 Flexpen] Insulin NPH Hum/Reg Insulin Hm 22 units SQ AC-BRKFST 01/15/20 02/22/20 History [Relion Novolin 70-30 Flexpen] Metoprolol Tartrate [Lopressor] 50 mg PO DAILY 01/15/20 02/22/20 History hydrALAZINE HCL [Apresoline] 50 mg PO DAILY 01/15/20 02/22/20 History Acetaminophen Tab [Tylenol] 650 mg PO Q6HR PRN tab 01/17/20 02/22/20 Rx Calcitron (Unknown Strength) 3 tab PO TID-W/MEALS 02/22/20 02/22/20 History Famotidine [Pepcid] 40 mg PO DAILY 02/22/20 02/22/20 History Sodium Polystyrene Sulfonate 15 gm PO MOWEFR 02/22/20 02/22/20 History Allergies Allergy/AdvReac Type Severity Reaction Status Date / Time No Known Allergies Allergy Verified 02/22/20 17:31 Physical Exam Vitals: Vital Signs Temp Pulse Pulse Resp BP BP Pulse Ox 02/23/20 10:55 84 18 158/81 92 L 02/23/20 10:31 92 02/23/20 10:20 88 02/23/20 09:00 98.9 F 90 18 163/80 96 02/23/20 04:00 97.0 F L 90 22 166/86 95 02/23/20 03:57 20 02/23/20 00:00 88 02/22/20 23:17 88 20 174/87 100 02/22/20 20:00 99 20 185/98 96 02/22/20 18:30 85 14 153/87 92 L 02/22/20 18:00 84 24 151/88 96 02/22/20 17:30 85 26 H 94 L 02/22/20 17:00 150/86 02/22/20 16:32 85 7 L 150/86 93 L 02/22/20 16:21 98.7 F 88 16 150/83 95 Intake and Output 02/22/20 02/23/20 02/23/20 22:59 06:59 14:59 Intake Total 120 Balance 120 Intake: Oral 120 Other: # Voids 0 1 Weight 104.326 kg 103.5 kg Results - Lab Results Most recent lab results Calcium 8.4 mg/dL (8.4-10.2) 02/22/20 16:38 Magnesium 1.5 mg/dL (1.6-2.3) L 02/22/20 16:38 02/22/20 16:38 02/22/20 16:38 Assessment and Plan Plan: assessment: 1. End-stage renal disease maintained on hemodialysis on Sunday schedule. 2. Dyspnea secondary to volume overload. 3. Insulin-dependent diabetes mellitus. 4. Chronic kidney disease mineral bone disease. 5. Hypertension with chronic kidney disease. 6. Anemia of chronic kidney disease. Rule out iron deficiency. plan: Hemodialysis today with goal 4 L ultrafiltration. Maintain IV Lasix. Increase hydralazine to 25 mg 3 times daily. check iron studies. Add Arafarheenp. Thank you for the consultation. I will continue to follow the patient with you during his hospital stay.
[2020-02-23] MEDS ORDERED: DARBEPOETIN ALFA 40 MCG/0.4 ML SYRINGE SQ SCH (11:30)
[2020-02-23 11:55] LABS: Glucose,Whole Blood 288 mg/dL (75-99)
[2020-02-23 12:19] VITALS: BMI 35.7
[2020-02-23] MEDS ORDERED: [UNRECOGNIZED DRUG - OTHER] PO SCH (12:30)
--- NOTE | 2020-02-23 15:00 | CONS ---
CONSULTATION Mr. Tompkins is a 64-year-old male with known history of end-stage renal disease, history of hypertension, hyperlipidemia, history of coronary artery disease, status post stenting in 2008 as well as a history of congestive heart failure, who presented with symptoms of progressive dyspnea that occurred suddenly. He denies any chest discomfort. He denies any tightness in the chest. He denies any dizziness or palpitation. The patient had an echocardiogram available to me in February of 2019 and at that time, he had moderately impaired left ventricular systolic function with ejection fraction reported of 35%-40%. Patient has no change in his peripheral edema. He denies any PND. No orthopnea. No dizziness. No palpitation. No syncope. He denies any chest discomfort. He denies any irregular heartbeat. According to him, he has been relatively compliant with his dietary intake and salt intake. He had prior admission with progressive dyspnea as well as fluid overload. MEDICATION: At home included insulin, levothyroxine, Lasix 80 mg daily, hydralazine 50 mg daily, metoprolol tartrate 50 mg daily, omeprazole, Pepcid, Lipitor 10 mg daily, and aspirin. Coronary risk factors are remarkable for history of hypertension, hyperlipidemia, and diabetes. He is a nonsmoker. REVIEW OF SYSTEMS: RESPIRATORY SYSTEM: He had dyspnea on exertion. No recent wheezing cough. GI SYSTEM: No recent GI bleeding. No peptic ulcer disease. SYSTEM: No dysuria. He has a history of end-stage renal disease. NERVOUS SYSTEM: No stroke or seizure. PHYSICAL EXAMINATION: He is a 64-year-old male, alert, oriented, in no apparent distress. Blood pressure 166/80 with a heart rate in in the 90s. HEAD: Normocephalic. EYES: Sclerae nonicteric. NECK: Good upstroke, no bruit, no jugular venous distention. LUNGS: With few crackles at the bases. HEART: Regular rate and rhythm, S1, S2. No S3 with systolic murmur at the base, ejection type, no diastolic murmur, no rub. ABDOMEN: Soft, nontender, positive bowel sounds, no organomegaly. EXTREMITIES: 1+ edema. LAB DATA: EKG reveals sinus mechanism, rate of 84, left axis deviation, poor R-wave progression with nonspecific ST-T wave changes. BUN and creatinine of 39 and 7.49. Troponin 0.019, 0.022 and 0.024. NT proBNP of 66,900, hemoglobin of 8.8, which is close to his prior range. Chest x-ray revealed evidence of congestive heart failure. IMPRESSION: 1. Worsening dyspnea with evidence of congestive heart failure moderate to severely impaired left ventricular systolic function. 2. End-stage renal disease. 3. History of coronary artery disease, stable. No evidence of acute coronary artery syndrome. 4. Hypertension. 5. Hyperlipidemia. 6. Diabetes mellitus. RECOMMENDATION: From the cardiac standpoint, the patient will be evaluated by the Nephrology Service. I will restart him on hydralazine. I will obtain a repeat echocardiogram and depending on his progress, further recommendations will be made. Thank you for this consult. Will follow with you. KIM / REYES: [id number] /
[2020-02-23 16:47] LABS: Glucose,Whole Blood 163 mg/dL (75-99)
[2020-02-23] MEDS: hydrALAZINE HCL 25 MG TAB PO SCH ×2 (17:48→21:27)
[2020-02-23 19:35] LABS: % Iron Saturation 17.49 (15.00-50.00)
[2020-02-23 19:49] LABS: Ferritin 973.8 ng/mL (22.0-322.0)
[2020-02-23] MEDS ORDERED: ATORVASTATIN 10 MG TAB PO SCH (21:00)
[2020-02-23 21:12] LABS: Glucose,Whole Blood 183 mg/dL (75-99)
[2020-02-23] MEDS: ATORVASTATIN 40 MG TAB PO SCH (21:27)
[2020-02-23] MEDS: METOPROLOL TARTRATE 50 MG TAB PO SCH (21:28)
--- NOTE | 2020-02-23 21:39 | NM ---
EXAMINATION TYPE: NM pul vent and perfuse DATE OF EXAM: 02/23/2020 COMPARISON: Chest x-ray from yesterday. HISTORY: Chest pain. TECHNIQUE: Utilizing inhalation of 67.7 mCi Tc 99m DTPA aerosol and intravenous injection of 5.3 mCi of Tc 99m MAA, ventilation and perfusion images are acquired post injection in multiple projections. FINDINGS: Some central clumping of particles consistent with underlying pulmonary fibrotic change. He terogeneity with small matching defects There is no evidence of mismatched defects. IMPRESSION: Low scintigraphic evidence for acute pulmonary embolism.
--- NOTE | 2020-02-23 21:55 | P.HPIM ---
History of Present Illness H&P Date: 02/23/20 Chief Complaint: chest pain Quoc Tompkins is a 64 yo M with PMH of ESRD on HD, T2DM, CAD who presented to the hospital complaining of worsening shortness of breath. He states this has been worsening over the past few weeks, improves after dialysis but then his symptoms will resume and worsen until he is due again. He has been trying to follow a low salt diet but notes he did have some eggs and sausage prior to admission which could have triggered his symptoms. On presentation vitals were stable, pt did require 2 L O2, WBC 6.6k, Cr 7, Hgb 8.8, d-dimer 1.5. CXR with worsened interstitial edema. Review of Systems All systems: negative Constitutional: Reports malaise, Reports weakness, Denies chills, Denies fever Eyes: denies blurred vision, denies pain Ears, nose, mouth and throat: Denies headache, Denies sore throat Cardiovascular: Reports dyspnea on exertion, Reports edema, Reports shortness of breath, Denies chest pain Respiratory: Reports cough Gastrointestinal: Denies abdominal pain, Denies diarrhea, Denies nausea, Denies vomiting Musculoskeletal: Denies myalgias Integumentary: Denies pruritus, Denies rash Neurological: Denies numbness, Denies weakness Psychiatric: Denies anxiety, Denies depression Endocrine: Denies fatigue, Denies weight change Past Medical History Past Medical History: Heart Failure, Diabetes Mellitus, Dialysis, Hyperlipidemia, Hypertension, Renal Disease Additional Past Medical History / Comment(s): vitiligo, 50 ounces fluid restrictions per day.ESRD with hemodailysis MWF- abdominal pain/nausea, hyperkalemia, chronic anemia, IDDM type II, neuropathy bilateral feet, bilateral eye retinopathy and leaking vessel behind R eye and recently told also now behind L eye, past R great toe diabetic ulcer which was healed thru [facility] History of Any Multi-Drug Resistant Organisms: None Reported Past Surgical History: Cholecystectomy, Heart Catheterization With Stent, Joint Replacement, Orthopedic Surgery Additional Past Surgical History / Comment(s): PCI with stent in 2008, L arm g raft for dialysis, R eye injections/laser surgery, R knee plate with screws, R total hip (2011), 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 Past Anesthesia/Blood Transfusion Reactions: No Reported Reaction Additional Past Anesthesia/Blood Transfusion Reaction / Comment(s): Pt states he has woken during surgeries in the past. Date of Last Stent Placement:: 2008 Past Psychological History: No Psychological Hx Reported Additional Psychological History / Comment(s): . Lives with his and 2 dogs. Pt uses cane to ambulate. He drives. Smoking Status: Former smoker Past Alcohol Use History: None Reported Additional Past Alcohol Use History / Comment(s): Pt started smoking as a teen and quit in 1989 Past Drug Use History: None Reported - Past Family History Mother Family Medical History: Congestive Heart Failure (CHF) Additional Family Medical History / Comment(s): Mother lived to be 89 yrs old. Father Family Medical History: Congestive Heart Failure (CHF) Additional Family Medical History / Comment(s): Father lived to be 93 yrs old. Brother(s) Family Medical History: Congestive Heart Failure (CHF) Additional Family Medical History / Comment(s): Brother at the age of 67yrs. Medications and Allergies Home Medications Medication Instructions Recorded Confirmed Type Aspirin [Adult Low Dose Aspirin EC] 81 mg PO DAILY 10/23/16 02/22/20 History Atorvastatin [Lipitor] 10 mg PO HS 10/23/16 02/22/20 History Ergocalciferol (Vitamin D2) 50,000 unit PO Q14D 10/23/16 02/22/20 History [Vitamin D2] Pyridoxine [Vitamin B-6] 100 mg PO DAILY 08/29/17 02/22/20 History diphenhydrAMINE [Benadryl] 25 mg PO DAILY 08/29/17 02/22/20 History Folic Acid 0.8 mg PO DAILY 12/07/17 02/22/20 History Cyanocobalamin [Vitamin B-12] 500 mcg PO DAILY 09/12/18 02/22/20 History Furosemide [Lasix] 80 mg PO DAILY 09/12/18 02/22/20 History Levothyroxine Sodium [Synthroid] 300 mcg PO DAILY 10/25/18 02/22/20 History Omeprazole [PriLOSEC] 20 mg PO AC-BID 02/27/19 02/22/20 History traMADol HCL [Ultram] 50 mg PO BID 02/27/19 02/22/20 History Insulin NPH Hum/Reg Insulin Hm 14 units SQ AC-SUPPER 01/15/20 02/22/20 History [Relion Novolin 70-30 Flexpen] Insulin NPH Hum/Reg Insulin Hm 22 units SQ AC-BRKFST 01/15/20 02/22/20 History [Relion Novolin 70-30 Flexpen] Metoprolol Tartrate [Lopressor] 50 mg PO DAILY 01/15/20 02/22/20 History hydrALAZINE HCL [Apresoline] 50 mg PO DAILY 01/15/20 02/22/20 History Acetaminophen Tab [Tylenol] 650 mg PO Q6HR PRN tab 01/17/20 02/22/20 Rx Calcitron (Unknown Strength) 3 tab PO TID-W/MEALS 02/22/20 02/22/20 History Famotidine [Pepcid] 40 mg PO DAILY 02/22/20 02/22/20 History Sodium Polystyrene Sulfonate 15 gm PO MOWEFR 02/22/20 02/22/20 History Allergies Allergy/AdvReac Type Severity Reaction Status Date / Time No Known Allergies Allergy Verified 02/22/20 17:31 Physical Exam Vitals: Vital Signs Temp Pulse Pulse Resp BP Pulse Ox 02/23/20 17:45 98.2 F 86 16 137/68 95 02/23/20 10:55 84 18 158/81 92 L 02/23/20 10:31 92 02/23/20 10:20 88 02/23/20 09:00 98.9 F 84 18 163/80 96 02/23/20 04:00 97.0 F L 90 22 166/86 95 02/23/20 03:57 20 02/23/20 00:00 88 02/22/20 23:17 88 20 174/87 100 Intake and Output 02/23/20 02/23/20 02/23/20 06:59 14:59 22:59 Intake Total 220 Balance 220 Intake: Oral 220 Other: # Voids 1 Weight 103.5 kg 103.5 kg General: well nourished, well developed, NAD. Vitals reviewed Eyes: PERRL, EOMI, conjunctiva normal HENT: normocephalic, mucus membranes moist Neck: supple, no JVD Lungs: normal respiratory effort, no wheezes. Crackles at bases CV: Regular rate and rhythm, no murmur. Peripheral pulses 2+. 1+ edema Abdomen: soft, nondistended, no organomegaly Lymph: no cervical or axillary LAD Skin: warm and dry. Neuro: A&Ox3, normal mood and affect Results CBC & Chem 7: 02/22/20 16:38 02/22/20 16:38 Labs: Abnormal Lab Results - Last 24 Hours (Table) 02/22/20 02/23/20 02/23/20 Range/Units 16:38 11:54 16:46 POC Glucose (mg/dL) 288 H 163 H (75-99) mg/dL Iron 39 L (65-175) ug/dL TIBC 223 L (228-460) ug/dL Ferritin 973.8 H (22.0-322.0) ng/mL 02/23/20 Range/Units 21:10 POC Glucose (mg/dL) 183 H (75-99) mg/dL Iron (65-175) ug/dL TIBC (228-460) ug/dL Ferritin (22.0-322.0) ng/mL Thrombosis Risk Factor Assmnt - Choose All That Apply Any of the Below Risk Factors Present?: No Each Risk Factor Represents 2 Points: Age 61-74 years Other congenital or acquired thrombophilia - If yes, enter type in comment: No Thrombosis Risk Factor Assessment Total Risk Factor Score: 2 Thrombosis Risk Factor Assessment Level: Low Risk Assessment and Plan (1) Chronic renal failure syndrome Current Visit: Yes Status: Acute Code(s): N18.9 - CHRONIC KIDNEY DISEASE, UNSPECIFIED SNOMED Code(s): 56346975 (2) Pulmonary edema Current Visit: Yes Status: Acute Code(s): J81.1 - CHRONIC PULMONARY EDEMA SNOMED Code(s): 77952236 (3) Diastolic CHF Current Visit: No Status: Acute Code(s): I50.30 - UNSPECIFIED DIASTOLIC (CONGESTIVE) HEART FAILURE SNOMED Code(s): 290763082 (4) End stage renal disease on dialysis due to type 2 diabetes mellitus Current Visit: No Status: Acute Code(s): E11.22 - TYPE 2 DIABETES MELLITUS W DIABETIC CHRONIC KIDNEY DISEASE; N18.6 - END STAGE RENAL DISEASE; Z99.2 - DEPENDENCE ON RENAL DIALYSIS SNOMED Code(s): 34335705599990 Plan: 1. Shortness of breath. Due to pulmonary edema/ESRD. Nephrology consult and plan for hemodialysis. Sodium restricted diet 2. CAD. Congestive CHF. Cardiology consult, dawit lipitor, ASA 3. T2DM. Continue 14 unit levemir. Sliding scale 4. Hypothyroidism
[2020-02-24] MEDS: LEVOTHYROXINE 100 MCG TAB PO SCH (05:34)
[2020-02-24] MEDS: FUROSEMIDE 10 MG/ML 10 ML VIAL IV SCH ×2 (05:34→17:51)
[2020-02-24] MEDS: PANTOPRAZOLE 40 MG TABLET PO SCH (05:34)
[2020-02-24 06:04] LABS: Glucose,Whole Blood 229 mg/dL (75-99)
[2020-02-24] MEDS: INSULIN DETEMIR (LEVEMIR) 100 UNIT/ML SYR SQ SCH (06:10)
[2020-02-24 06:45] LABS: Calcium 8.4 mg/dL (8.4-10.2); Potassium 4.5 mmol/L (3.5-5.1)
[2020-02-24] MEDS ORDERED: INSULIN DETEMIR (LEVEMIR) 100 UNIT/ML SYR SQ SCH (07:00)
[2020-02-24] MEDS: ASPIRIN 81 MG PO SCH (08:35)
[2020-02-24] MEDS: METOPROLOL TARTRATE 50 MG TAB PO SCH ×2 (08:35→21:06)
[2020-02-24] MEDS: FOLIC ACID 1 MG TAB PO SCH (08:35)
[2020-02-24] MEDS: hydrALAZINE HCL 25 MG TAB PO SCH ×3 (08:35→21:06)
[2020-02-24] MEDS: diphenhydrAMINE 25 MG CAP PO SCH (08:35)
[2020-02-24] MEDS: CYANOCOBALAMIN 500 MCG TAB PO SCH (08:35)
[2020-02-24] MEDS: traMADol 50 MG TAB PO SCH ×2 (08:36→17:50)
--- NOTE | 2020-02-24 11:39 | PN ---
PROGRESS NOTE Mr. Tompkins is a 64-year-old male, history of end-stage renal disease, on hemodialysis who presented with symptoms of severe dyspnea and evidence of fluid overload. He has a history of coronary artery disease, status post percutaneous revascularization with a moderately to severely impaired left ventricular systolic function. He is feeling much better today. Before his admission taking an extra load of salt. He denies any dizziness or palpitation. He has been ambulating without difficulty. He had a ventilation perfusion scan that showed low probability for pulmonary embolism. He continued to be on aspirin once a day, Lipitor 40 mg daily, Lasix 80 mg q.12 hours, hydralazine 25 mg 3 times a day, metoprolol tartrate 50 mg twice a day. PHYSICAL EXAMINATION: Blood pressure 135/70 with a heart rate in the 70s. LUNGS: Clear. HEART: Regular rate and rhythm, S1, S2. No S3. No rub with systolic murmur. ABDOMEN: Soft, nontender. EXTREMITIES: With no significant edema. LAB DATA: Revealed BUN and creatinine 30 and 6.65 and potassium of 4.5. IMPRESSION: 1. Heart failure with fluid overload related to his dialysis, probably exacerbated by the salt intake. 2. History of coronary artery disease, stable. 3. History of hypertension. 4. Hyperlipidemia. 5. Diabetes mellitus. RECOMMENDATION: From the cardiac standpoint, will continue present therapy, increase his level of activity. I will review the results of his echocardiogram and depending on his progress, further recommendation will be made. I would expect he should be able to be discharged in the next 24 to 48 hours. Will await the input of the Nephrology Service to see if ultrafiltration is scheduled today. MMODL / IJN: [id number] /
--- NOTE | 2020-02-24 11:51 | ECHOF ---
Referral Reason:chf MEASUREMENTS -------- HEIGHT: 170.2 cm WEIGHT: 103.9 kg BP: RVIDd: 3.7 cm (< 3.3) IVSd: 1.1 cm (0.6 - 1.1) LVIDd: 5.7 cm (3.9 - 5.3) LVPWd: 1.6 cm (0.6 - 1.1) EDV(Teich): 161 ml IVSs: 1.4 cm LVIDs: 5.0 cm LVPWs: 1.8 cm %IVS Thck: 28 % ESV(Teich): 119 ml EF(Teich): 26 % %FS: 12 % SV(Teich): 43 ml LA Diam: 4.9 cm (2.7 - 3.8) LALs A4C: 5.9 cm LAAs A4C: 26.6 cm LAESV A-L A4C: 102 ml LAESV MOD A4C: 95 ml LALs A2C: 6.7 cm LAAs A2C: 31.6 cm LAESV A-L A2C: 128 ml LAESV MOD A2C: 119 ml LAESV(A-L): 122 ml LAESV Index (A-L): 56.92 ml/m Ao Diam: 3.3 cm (2.0 - 3.7) AV Cusp: 2.1 cm (1.5 - 2.6) LA Diam: 4.8 cm (2.7 - 3.8) MV EXCURSION: 16.486 mm (> 18.000) MV EF SLOPE: 53 mm/s (70 - 150) EPSS: 1.8 cm MV E Pro: 0.66 m/s MV DecT: 251 ms MV Dec [place]: 2.6 m/s MV A Pro: 0.60 m/s MV E/A Ratio: 1.09 MV PHT: 73 ms TR Vmax: 2.30 m/s TR maxP.07 mmHg RAP: 5.00 mmHg RVSP: 26.07 mmHg FINDINGS -------- Sinus rhythm. This was a technically adequate study. The left ventricular size is normal. There is borderline concentric left ventricular hypertrophy. Overall left ventricular systolic function is mild-moderately impaired with, an EF between 40 - 45 % . Inferior Hypokinesis The right ventricle is normal in size. The left atrium is markedly dilated. LA is severely dilated >40 ml/m2 The right atrial size is normal. There is mild aortic valve sclerosis. There is no evidence of aortic regurgitation. Mild mitral annular calcification present. Mild mitral regurgitation is present. Mild tricuspid regurgitation present. Right ventricular systolic pressure is normal at < 35 mmHg. There is no pulmonic regurgitation present. The aortic root size is normal. There is no pericardial effusion. CONCLUSIONS -------- 1. The left ventricular size is normal. 2. There is borderline concentric left ventricular hypertrophy. 3. Overall left ventricular systolic function is mild-moderately impaired with, an EF between 40 - 45 %. 4. Inferior Hypokinesis 5. The right ventricle is normal in size. 6. The left atrium is markedly dilated. 7. LA is severely dilated >40 ml/m2 8. The right atrial size is normal. 9. There is mild aortic valve sclerosis. 10. Mild mitral annular calcification present. 11. Mild mitral regurgitation is present. 12. Mild tricuspid regurgitation present. 13. Right ventricular systolic pressure is normal at < 35 mmHg. 14. There is no pulmonic regurgitation present. PIPE CLEANER: Ofelia Payne RDCS
[2020-02-24 12:01] LABS: Glucose,Whole Blood 217 mg/dL (75-99)
--- NOTE | 2020-02-24 12:26 | P.PN ---
Subjective Patient is seen in follow-up for end-stage renal disease. He is maintained on hemodialysis on Sunday schedule. Tolerated hemodialysis well yesterday with 4 L of for nutrition. Dyspnea improved. No active complaints at this time. Vital signs are stable. General: The patient appeared well nourished and normally developed. HEENT: Head exam is unremarkable. Neck is without jugular venous distension. LUNGS: Breath sounds decreased. HEART: Rate and Rhythm are regular. ABDOMEN: Soft, nontender. EXTREMITITES: No clubbing, cyanosis, or edema. Objective - Vital Signs Vital signs: Vital Signs Temp 98.2 F 02/24/20 08:00 Pulse 82 02/24/20 08:00 Resp 18 02/24/20 08:00 BP 122/66 02/24/20 08:00 Pulse Ox 99 02/24/20 08:00 Intake & Output 02/23/20 02/24/20 02/24/20 18:59 06:59 18:59 Intake Total 220 240 Output Total 4000 Balance 220 -4000 240 Weight 103.5 kg 103.9 kg Intake: Oral 220 240 Output: Hemodialysis 4000 Other: # Voids 1 0 - Labs CBC & Chem 7: 02/22/20 16:38 02/24/20 06:13 Labs: Abnormal Lab Results - Last 24 Hours (Table) 02/22/20 02/23/20 02/23/20 Range/Units 16:38 16:46 21:10 Sodium (137-145) mmol/L Chloride (98-107) mmol/L BUN (9-20) mg/dL Creatinine (0.66-1.25) mg/dL Glucose (74-99) mg/dL POC Glucose (mg/dL) 163 H 183 H (75-99) mg/dL Iron 39 L (65-175) ug/dL TIBC 223 L (228-460) ug/dL Ferritin 973.8 H (22.0-322.0) ng/mL 02/24/20 02/24/20 02/24/20 Range/Units 06:03 06:13 11:40 Sodium 134 L (137-145) mmol/L Chloride 97 L (98-107) mmol/L BUN 30 H (9-20) mg/dL Creatinine 6.65 H (0.66-1.25) mg/dL Glucose 211 H (74-99) mg/dL POC Glucose (mg/dL) 229 H 217 H (75-99) mg/dL Iron (65-175) ug/dL TIBC (228-460) ug/dL Ferritin (22.0-322.0) ng/mL Assessment and Plan Plan: assessment: 1. End-stage renal disease maintained on hemodialysis on Sunday schedule. 2. Dyspnea secondary to volume overload. Improved postdialysis. 3. Insulin-dependent diabetes mellitus. 4. Chronic kidney disease mineral bone disease maintained on PhosLo. 5. Hypertension with chronic kidney disease. Controlled. 6. Anemia of chronic kidney disease. Iron deficiency noted. Maintained on Aranesp. 7. Acute systolic CHF with ejection fraction of 40-45%. plan: Hemodialysis tomorrow. Maintain IV Lasix. IV iron 3 doses. First dose today.
[2020-02-24] MEDS: CALCIUM ACETATE 667 MG TAB PO SCH ×2 (13:12→17:50)
[2020-02-24] MEDS: SODIUM FERRIC GLUCONAT-SUCROSE 125 MG in SODIUM CHLORIDE 0.9% 100 ML IVPB SCH (14:56)
[2020-02-24 16:48] LABS: Glucose,Whole Blood 303 mg/dL (75-99)
[2020-02-24] MEDS ORDERED: INSULN ASP PRT/INSULIN ASPART 100 UNIT/ML 10 ML VIAL SQ SCH (18:15)
[2020-02-24 20:06] LABS: Glucose,Whole Blood 299 mg/dL (75-99)
[2020-02-24] MEDS: ATORVASTATIN 40 MG TAB PO SCH (21:05)
[2020-02-24] MEDS: LORazepam 2 MG/ML INJ IV PRN (21:06)
--- NOTE | 2020-02-24 22:46 | P.PN ---
Subjective Progress Note Date: 02/24/20 He is feeling significantly better after dialysis with 4 L off. Nephrology planning on IV iron infusion. Objective - Vital Signs Vital signs: Vital Signs Temp 98.1 F 02/24/20 16:00 Pulse 83 02/24/20 16:00 Resp 18 02/24/20 16:00 BP 146/71 02/24/20 16:00 Pulse Ox 95 02/24/20 16:00 Intake & Output 02/24/20 02/24/20 02/25/20 06:59 18:59 06:59 Intake Total 720 Output Total 4000 Balance -4000 720 Weight 103.9 kg Intake: Oral 720 Output: Hemodialysis 4000 Other: # Voids 1 0 1 - Exam Gen: well developed, well nourished male in NAD CV: RRR, no murmur Lungs: Normal effort, mild crackles at bases Neuro: alert and oriented x3, no focal deficit - Labs CBC & Chem 7: 02/22/20 16:38 02/24/20 06:13 Labs: Abnormal Lab Results - Last 24 Hours (Table) 02/24/20 02/24/20 02/24/20 Range/Units 06:03 06:13 11:40 Sodium 134 L (137-145) mmol/L Chloride 97 L (98-107) mmol/L BUN 30 H (9-20) mg/dL Creatinine 6.65 H (0.66-1.25) mg/dL Glucose 211 H (74-99) mg/dL POC Glucose (mg/dL) 229 H 217 H (75-99) mg/dL 02/24/20 02/24/20 Range/Units 16:47 20:04 Sodium (137-145) mmol/L Chloride (98-107) mmol/L BUN (9-20) mg/dL Creatinine (0.66-1.25) mg/dL Glucose (74-99) mg/dL POC Glucose (mg/dL) 303 H 299 H (75-99) mg/dL Assessment and Plan (1) Chronic renal failure syndrome Current Visit: Yes Status: Acute Code(s): N18.9 - CHRONIC KIDNEY DISEASE, UNSPECIFIED SNOMED Code(s): 68912164 (2) Pulmonary edema Current Visit: Yes Status: Acute Code(s): J81.1 - CHRONIC PULMONARY EDEMA SNOMED Code(s): 48065862 (3) Diastolic CHF Current Visit: No Status: Acute Code(s): I50.30 - UNSPECIFIED DIASTOLIC (CONGESTIVE) HEART FAILURE SNOMED Code(s): 681399844 (4) End stage renal disease on dialysis due to type 2 diabetes mellitus Current Visit: No Status: Acute Code(s): E11.22 - TYPE 2 DIABETES MELLITUS W DIABETIC CHRONIC KIDNEY DISEASE; N18.6 - END STAGE RENAL DISEASE; Z99.2 - DEPENDENCE ON RENAL DIALYSIS SNOMED Code(s): 60609072727086 Plan: Continue current management, hemodialysis tomorrow, sodium restricted diet. IV iron infusion. Echo per cardiology
[2020-02-25 01:01] VITALS: RESP 18
[2020-02-25] MEDS: PANTOPRAZOLE 40 MG TABLET PO SCH (06:29)
[2020-02-25] MEDS: FUROSEMIDE 10 MG/ML 10 ML VIAL IV SCH (06:29)
[2020-02-25] MEDS: LEVOTHYROXINE 100 MCG TAB PO SCH (06:29)
[2020-02-25] MEDS ORDERED: INSULN ASP PRT/INSULIN ASPART 100 UNIT/ML 10 ML VIAL SQ SCH (07:30)
[2020-02-25 07:36] LABS: Glucose,Whole Blood 121 mg/dL (75-99)
[2020-02-25] MEDS: CALCIUM ACETATE 667 MG TAB PO SCH ×2 (07:46→13:42)
[2020-02-25] MEDS: INSULIN DETEMIR (LEVEMIR) 100 UNIT/ML SYR SQ SCH (07:47)
[2020-02-25 10:42] LABS: Glucose,Whole Blood 67 mg/dL (75-99)
[2020-02-25] MEDS: SODIUM FERRIC GLUCONAT-SUCROSE 125 MG in SODIUM CHLORIDE 0.9% 100 ML IVPB SCH (10:51)
[2020-02-25] MEDS: diphenhydrAMINE 25 MG CAP PO SCH (10:54)
[2020-02-25] MEDS: traMADol 50 MG TAB PO SCH (10:54)
[2020-02-25] MEDS: FOLIC ACID 1 MG TAB PO SCH (10:54)
[2020-02-25] MEDS: hydrALAZINE HCL 25 MG TAB PO SCH (10:54)
[2020-02-25] MEDS: METOPROLOL TARTRATE 50 MG TAB PO SCH (10:54)
[2020-02-25] MEDS: CYANOCOBALAMIN 500 MCG TAB PO SCH (10:56)
[2020-02-25] MEDS: ASPIRIN 81 MG PO SCH (10:57)
[2020-02-25 11:10] LABS: Glucose,Whole Blood 81 mg/dL (75-99)
[2020-02-25 12:01] LABS: Glucose,Whole Blood 87 mg/dL (75-99)
--- NOTE | 2020-02-25 12:54 | P.PN ---
Subjective Progress Note Date: 02/25/20 CHIEF COMPLAINT: Fluid overload HISTORY OF PRESENT ILLNESS: Patient examined this morning at the bedside. He has just completed dialysis with removal of 3 L. He states his shortness of breath has significantly improved. He also reports improvement in his lower extremity edema. Echocardiogram reveals ejection fraction of 40-45%. He reports he is supposed to be discharged home today. PHYSICAL EXAM: VITAL SIGNS: Reviewed. GENERAL: Well-developed in no acute distress. NECK: Supple. No JVD or thyromegaly LUNGS: Respirations even and unlabored. Lungs essentially clear to auscultation bilaterally. HEART: Regular rate and rhythm. S1 and S2 heard. EXTREMITIES: Normal range of motion. No clubbing or cyanosis. Peripheral pulses intact. Trace edema to bilateral ankles. ASSESSMENT: 1. Heart failure with fluid overload related to his dialysis and exacerbated by increased salt intake 2. History of coronary artery disease 3. History of hypertension 4. Hyperlipidemia 5. Diabetes mellitus, type II PLAN: -Reinforced low salt diet with patient who verbalized understanding -Hemodialysis and IV Lasix per nephrology -Continue current cardiac medications Nurse practitioner note has been reviewed by physician. Signing provider agrees with the documented findings, assessment, and plan of care. Objective - Vital Signs Vital signs: Vital Signs Temp 98.5 F 02/25/20 03:53 Pulse 94 02/25/20 04:00 Resp 18 02/25/20 08:00 BP 130/53 02/25/20 03:53 Pulse Ox 96 02/25/20 03:53 Intake & Output 02/24/20 02/25/20 02/25/20 18:59 06:59 18:59 Intake Total 720 0 Output Total 0 Balance 720 0 0 Weight 102.8 kg Intake: Oral 720 0 Output: Urine 0 Other: Voiding Method Toilet Toilet # Voids 0 0 - Labs CBC & Chem 7: 02/22/20 16:38 02/24/20 06:13 Labs: Abnormal Lab Results - Last 24 Hours (Table) 02/24/20 02/24/20 02/25/20 Range/Units 16:47 20:04 07:35 POC Glucose (mg/dL) 303 H 299 H 121 H (75-99) mg/dL 02/25/20 Range/Units 10:40 POC Glucose (mg/dL) 67 L (75-99) mg/dL
--- NOTE | 2020-02-25 14:58 | P.PN ---
Subjective Patient is seen in follow-up for end-stage renal disease. He is maintained on hemodialysis on Sunday schedule. Tolerating HD well. Dyspnea improved. No active complaints at this time. BP stable. Vital signs are stable. General: The patient appeared well nourished and normally developed. HEENT: Head exam is unremarkable. Neck is without jugular venous distension. LUNGS: Breath sounds decreased. HEART: Rate and Rhythm are regular. ABDOMEN: Soft, nontender. EXTREMITITES: No clubbing, cyanosis, or edema. Objective - Vital Signs Vital signs: Vital Signs Temp 98.5 F 02/25/20 03:53 Pulse 94 02/25/20 04:00 Resp 18 02/25/20 08:00 BP 130/53 02/25/20 03:53 Pulse Ox 96 02/25/20 03:53 Intake & Output 02/24/20 02/25/20 02/25/20 18:59 06:59 18:59 Intake Total 720 0 Output Total 0 Balance 720 0 0 Weight 102.8 kg Intake: Oral 720 0 Output: Urine 0 Other: Voiding Method Toilet Toilet # Voids 0 0 - Labs CBC & Chem 7: 02/22/20 16:38 02/24/20 06:13 Labs: Abnormal Lab Results - Last 24 Hours (Table) 02/24/20 02/24/20 02/25/20 Range/Units 16:47 20:04 07:35 POC Glucose (mg/dL) 303 H 299 H 121 H (75-99) mg/dL 02/25/20 Range/Units 10:40 POC Glucose (mg/dL) 67 L (75-99) mg/dL Assessment and Plan Plan: Assessment: 1. End-stage renal disease maintained on hemodialysis on Sunday schedule. 2. Dyspnea secondary to volume overload. Improved postdialysis. 3. Insulin-dependent diabetes mellitus. 4. Chronic kidney disease mineral bone disease maintained on PhosLo. 5. Hypertension with chronic kidney disease. Controlled. 6. Anemia of chronic kidney disease. Iron deficiency noted. Maintained on Aranesp. 7. Acute systolic CHF with ejection fraction of 40-45%. Plan: Currently seen while undergoing HD. Change lasix to PO. IV iron 3 doses. Second dose today. Stable for d/c from nephrology standpoint.
[2020-02-25] MEDS ORDERED: FUROSEMIDE 80 MG TAB PO SCH (16:00)
[2020-02-25 16:55] VITALS: BP 140/69; PULSE 75; TEMP 97.2
--- NOTE | 2020-02-26 14:26 | CDI ---
Documentation Clarification Form Date: 02/26/2020 01:59:48 PM From: Estefanía Hernandez Phone: If you have a question about this query, please contact Arlene Mascorro, Unit Manager at [phone] between 8am and 5pm. Admit Date: 02/22/2020 06:10:00 PM Patient Name: Quoc Tompkins Visit Number: [id number] Discharge Date: 02/25/2020 03:50:00 PM ATTENTION: The Clinical Documentation Specialists (CDI) and [facility] Coding Staff appreciate your assistance in clarifying documentation. Please respond to the clarification below the line at the bottom and electronically sign. The CDI & [facility] Coding staff will review the response and follow-up if needed. Please note: Queries are made part of the Legal Health Record. If you have any questions, please contact the author of this message via ITS. Dr. Arcadio Chao Conflicting documentation has been found in the medical record: Per H and P documentation of diastolic CHF. Per Nephrology 02/24 PN documents patient with acute systolic CHF. Please clarify type of CHF and acuity. History/Risk Factors: ESRD history of CHF HTN DM CAD Clinical Indicators: BNP 26363 Echo with left ventricular systolic function is mild-moderately impaired with EF between 40-45% Treatment: restart on hydralazine and Echo In your opinion, what is the most clinically appropriate diagnosis for this patient? Please clarify acuity. Acute systolic CHF Diastolic CHF Diastolic and Systolic CHF Other explanation of clinical findings Unable to determine (no explanation for clinical findings) (Last Revision: October 2017) Acute systolic CHF MTDD
== END 2020-02-25 15:50 | disposition home or self-care (01) | DRG 291 ==
LOC: EC 16:18 → 3SCARD 18:10
PROVIDERS: ADMIT Family Medicine; ATTEND Family Medicine
PROC: 5A1D70Z Performance of Urinary Filtration, Intermittent, Less than 6 Hours Per Day (ICD-10-PCS; principal; 2020-02-23)
DX: I13.2 Hypertensive heart and chronic kidney disease with heart failure and with stage 5 chronic kidney disease, or end stage renal disease (principal); N18.6 End stage renal disease; I50.21 Acute systolic (congestive) heart failure; E11.22 Type 2 diabetes mellitus with diabetic chronic kidney disease; D63.1 Anemia in chronic kidney disease; Z99.2 Dependence on renal dialysis; Z79.4 Long term (current) use of insulin; D50.9 Iron deficiency anemia, unspecified; E78.5 Hyperlipidemia, unspecified; E03.9 Hypothyroidism, unspecified; I25.10 Atherosclerotic heart disease of native coronary artery without angina pectoris; E83.9 Disorder of mineral metabolism, unspecified; Z79.82 Long term (current) use of aspirin; Z79.890 Hormone replacement therapy; Z79.899 Other long term (current) drug therapy; Z82.49 Family history of ischemic heart disease and other diseases of the circulatory system; Z87.891 Personal history of nicotine dependence; Z95.5 Presence of coronary angioplasty implant and graft; Z90.49 Acquired absence of other specified parts of digestive tract; Z96.641 Presence of right artificial hip joint; T78.1XXA Other adverse food reactions, not elsewhere classified, initial encounter
CPT/HCPCS: 36415; 71046; 78582; 80048; 80053; 82728; 83540; 83550; 83735; 83880; 84484; 85025; 85379; 85610; 85730; 90935; 93005; 93306; 94640; 99285